=== PATIENT | female | born 1970 | race African-American/Black ===

== ENCOUNTER → 2017-01-10 | Outpatient (CLI) | payer MEDICARE, OTHER ==
[2017-01-10 12:42] LABS: Aty Lym Flag Slight; CH 27.3; CHCM 29.7; HDW 2.69; HGB 11.5 gm/dL (11.4-16.0); Hypochromasia Marked; MCH 27.8 pg (25.0-35.0); MCHC 30.1 g/dL (31.0-37.0); MCV 92.4 fL (80.0-100.0); Mean Platelet Volume 7.4; RBC 4.12 m/uL (3.80-5.40); RDW 15.5 % (11.5-15.5); WBC 3.6 k/uL (3.8-10.6); WBC (Perox) 3.64
[2017-01-10 12:58] LABS: ALT 29 U/L (9-52); AST 25 U/L (14-36); Alkaline Phosphatase 85 U/L (38-126); Anion Gap 10 mmol/L; Blood Urea Nitrogen 7 mg/dL (7-17); Calcium 9.1 mg/dL (8.4-10.2); Carbon Dioxide 25 mmol/L (22-30); Chloride 102 mmol/L (98-107); Non-African American GFR(MDRD) >60 (>60 ml/min/1.73 sqM); Potassium 4.5 mmol/L (3.5-5.1); Sodium 137 mmol/L (137-145)
[2017-01-10 13:15] LABS: Add Differential Manual Differential
[2017-01-10 13:18] LABS: Manual Review Performed; Nucleated Red Blood Cells 0 /100 WBC (0-0); Target Cells Present; Total Cells Counted 100
[2017-01-15 10:40] LABS: Mis test requested (Blood) Anti Xa
== END | disposition home or self-care (01) ==
LOC: LABWHC1 11:25
PROVIDERS: ATTEND Internal Medicine Hematology & Oncology
DX: Z51.81 Encounter for therapeutic drug level monitoring (principal); Z79.01 Long term (current) use of anticoagulants
CPT/HCPCS: 36415; 80051; 82310; 82565; 84075; 84450; 84460; 84520; 85025; 85520

== ENCOUNTER → 2017-04-10 | Outpatient (CLI) | payer MEDICARE, OTHER ==
--- NOTE | 2017-04-10 09:34 | MR ---
MRI CERVICAL SPINE: CLINICAL HISTORY: Cervical radiculopathy per order. Headache with neck pain for years causing pain or weakness into left arm and fingers per patient. TECHNIQUE: Multiplanar, multisequence imaging of the cervical spine is performed without IV contrast. COMPARISON: None. FINDINGS: Sagittal images of the cervical spine show the craniocervical junction to appear within nor mal limits. The cervical and upper thoracic spinal cord is normal in course, caliber, and signal. V ertebral alignment is anatomic. The vertebral body and intravertebral disk heights are normal. No la rge posterior disc herniations are seen on sagittal images. The bone marrow signal intensity is with in normal limits. No significant spurring is present. Axial images show the C2-C3, C3-C4, C4-C5 levels all to appear within normal limits. Axial images at C5-C6 level show small right paracentral disc protrusion on axial image 22 mildly eff acing anterior thecal sac, bilateral neural foramina are patent. Axial images at C6-C7 and C7-T1 levels are felt within normal limits. There are several T2 hyperintense lesions scattered throughout the thyroid gland bilaterally, Includi ng 9 mm lesion right thyroid lobe on axial image 18 and 8 mm lesion posteriorly inferiorly on axial i mage 4. IMPRESSION: Small disc herniation C5-C6 level mildly effaces anterior thecal sac otherwise unremarkab le study. No significant finding is seen to account for radiculopathy type symptoms. Thyroid nodules present, advise thyroid ultrasound follow-up to further evaluate and characterize.
== END | disposition home or self-care (01) ==
LOC: RADMRIMAIN 08:21
PROVIDERS: ATTEND Acupuncturist
DX: M50.122 Cervical disc disorder at C5-C6 level with radiculopathy (principal)
CPT/HCPCS: 72141

== ENCOUNTER 2017-04-26 00:47 | Inpatient (IN) | payer MEDICARE, OTHER ==
--- NOTE | 2017-04-26 01:37 | ED ---
Extremity Problem HPI - General Source: patient, RN notes reviewed Mode of arrival: wheelchair Limitations: no limitations <Tali Sanchez - Last Filed: 04/26/17 18:30> <Art Ramos - Last Filed: 04/28/17 08:58> - General Chief complaint: Extremity Problem,Nontraumatic Stated complaint: R leg pain Time Seen by Provider: 04/26/17 01:19 - History of Present Illness Initial comments: Patient is a 38-year-old female presents emergency room for evaluation of right leg swelling and tenderness. Patient states pain began about 5 days ago. Patient states on she followed-up with her primary care provider and an ultrasound was ordered. Patient states she has not received that ultrasound yet. 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 Patient states she takes Plavix and Lovenox daily. Patient states she has a history of left leg amputation due to complications from an infected wound on her great toe. Patient states that she does not want her right leg amputated therefore came here to be further evaluated. Patient states having pain radiates down from her hip to her ankle. Patient states she takes morphine and Dilaudid at home with no relief of symptoms. Patient denies injuring her right leg. Patient denies any fevers or chills. Patient did have a temperature of 100.0F on arrival. Patient denies chest pain or shortness of breath. Patient denies cough. Patient denies headache or dizziness. (Tali Sanchez) - Related Data Home Medications Medication Instructions Recorded Confirmed ALPRAZolam [Xanax] 2 mg PO BID 09/06/16 04/26/17 Alendronate Sodium [Fosamax] 10 mg PO Q7D 09/06/16 04/26/17 Clopidogrel Bisulfate [Plavix] 75 mg PO DAILY 09/06/16 04/26/17 Cyclobenzaprine [Flexeril] 10 mg PO TID 09/06/16 04/26/17 Enoxaparin [Lovenox] 80 mg SQ DAILY 09/06/16 04/26/17 HYDROmorphone HCL [Dilaudid] 8 mg PO Q8HR PRN 09/06/16 04/26/17 Morphine Sulfate [Rebeca] 100 mg PO BID 09/06/16 04/26/17 Oxybutynin Chloride [Ditropan] 5 mg PO TID 09/06/16 04/26/17 Sucralfate [Carafate] 1 gm PO TID 09/06/16 04/26/17 Albuterol Sulfate [Ventolin Hfa] 1 - 2 puff INHALATION RT-Q6H PRN 04/26/1704/26 Amitriptyline HCl [Elavil] 25 mg PO HS 04/26/17 04/26/17 Ciclopirox [Penlac] 1 applic TOPICAL HS 04/26/17 04/26/17 Dextroamphetamine/Amphetamine 30 mg PO BID 04/26/17 04/26/17 [Adderall] Famotidine [Pepcid] 20 mg PO DAILY 04/26/17 04/26/17 Allergies Allergy/AdvReac Type Severity Reaction Status Date / Time trazodone Allergy Chest Pain Verified 04/26/17 07:49 acetaminophen AdvReac Unknown Verified 04/26/17 07:49 Review of Systems ROS Other: All systems not noted in ROS Statement are negative. <Tali Sanchez - Last Filed: 04/26/17 18:30> ROS Other: All systems not noted in ROS Statement are negative. <Art Ramos - Last Filed: 04/28/17 08:58> ROS Statement: Those systems with pertinent positive or pertinent negative responses have been documented in the HPI. Past Medical History Past Medical History: Asthma, Deep Vein Thrombosis (DVT), Osteoarthritis (OA), Pulmonary Embolus (PE) Additional Past Medical History / Comment(s): sticky platelet, bronchitis, History of Any Multi-Drug Resistant Organisms: None Reported Past Surgical History: Cholecystectomy Additional Past Surgical History / Comment(s): BKA, Past Psychological History: Depression Smoking Status: Current some day smoker Past Alcohol Use History: Rare Past Drug Use History: None Reported <Tali Sanchez - Last Filed: 04/26/17 18:30> General Exam Limitations: no limitations General appearance: alert, in no apparent distress Head exam: Present: atraumatic, normocephalic, normal inspection Eye exam: Present: normal appearance ENT exam: Present: normal exam Neck exam: Present: normal inspection Respiratory exam: Present: normal lung sounds bilaterally. Absent: respiratory distress Cardiovascular Exam: Present: regular rate, normal rhythm, normal heart sounds Extremities exam: Present: other (left leg above the knee amputation) Right Lower Leg exam: Present: swelling Ankle exam: Present: swelling Foot/Toe exam: Present: full ROM, tenderness (anterior ankle), swelling Neurovascular tendon exam: Absent: pulse deficit (2+ dorsal pedal and posterior tibial pulses on Doppler), abnormal cap refill (Capillary refill less than 2 seconds) Back exam: Present: normal inspection Neurological exam: Present: alert, oriented X3, CN II-XII intact Psychiatric exam: Present: normal affect, normal mood Skin exam: Present: warm, dry, intact, normal color. Absent: rash <Tali Sanchez - Last Filed: 04/26/17 18:30> <Art Ramos - Last Filed: 04/28/17 08:58> - General Exam Comments Initial Comments: Sitting in exam room, no distress. (Tali Sanchze) Medical Decision Making - Lab Data Result diagrams: 04/26/17 02:18 04/26/17 02:18 - Radiology Data Radiology results: report reviewed, image reviewed <Tali Sanchez - Last Filed: 04/26/17 18:30> - Lab Data Result diagrams: 04/27/17 08:09 04/27/17 08:09 <Art Ramos - Last Filed: 04/28/17 08:58> - Medical Decision Making Patient is a 46-year-old female presents to the emergency room for evaluation of right leg pain and swelling. Venous Doppler ultrasound negative for DVT. Patient still complaining of pain. Case discussed Dr. Ramos. Dr. Stapleton is currently trying to get a hold of on-call vascular surgeon. Case passed on to Dr. Ramos at 4 AM. (Tali Sanchez) - Lab Data Lab Results 04/26/17 04/26/17 04/26/17 Range/Units 02:18 02:18 02:18 WBC 6.1 (3.8-10.6) k/uL RBC 3.67 L (3.80-5.40) m/uL Hgb 9.3 L (11.4-16.0) gm/dL Hct 30.8 L (34.0-46.0) % MCV 83.8 (80.0-100.0) fL MCH 25.3 (25.0-35.0) pg MCHC 30.1 L (31.0-37.0) g/dL RDW 14.8 (11.5-15.5) % Plt Count 384 (150-450) k/uL Neutrophils % 60 % Lymphocytes % 28 % Monocytes % 6 % Eosinophils % 3 % Basophils % 0 % Neutrophils # 3.7 (1.3-7.7) k/uL Lymphocytes # 1.7 (1.0-4.8) k/uL Monocytes # 0.4 (0-1.0) k/uL Eosinophils # 0.2 (0-0.7) k/uL Basophils # 0.0 (0-0.2) k/uL Hypochromasia Marked Sodium 141 (137-145) mmol/L Potassium 3.4 L (3.5-5.1) mmol/L Chloride 110 H (98-107) mmol/L Carbon Dioxide 18 L (22-30) mmol/L Anion Gap 13 mmol/L BUN 15 (7-17) mg/dL Creatinine 0.50 L (0.52-1.04) mg/dL Est GFR (MDRD) Af Amer >60 (>60 ml/min/1.73 sqM) Est GFR (MDRD) Non-Af >60 (>60 ml/min/1.73 sqM) Glucose 85 (74-99) mg/dL Plasma Lactic Acid Faisal 0.7 (0.7-2.0) mmol/L Calcium 9.1 (8.4-10.2) mg/dL Total Bilirubin 0.2 (0.2-1.3) mg/dL AST 25 (14-36) U/L ALT 31 (9-52) U/L Alkaline Phosphatase 87 (38-126) U/L Total Protein 6.9 (6.3-8.2) g/dL Albumin 3.7 (3.5-5.0) g/dL Urine Color Urine Appearance (Clear) Urine pH (5.0-8.0) Ur Specific [place] (1.001-1.035) Urine Protein (Negative) Urine Glucose (UA) (Negative) Urine Ketones (Negative) Urine Blood (Negative) Urine Nitrite (Negative) Urine Bilirubin (Negative) Urine Urobilinogen (<2.0) mg/dL Ur Leukocyte Esterase (Negative) 06/18/17 Range/Units 05:00 WBC (3.8-10.6) k/uL RBC (3.80-5.40) m/uL Hgb (11.4-16.0) gm/dL Hct (34.0-46.0) % MCV (80.0-100.0) fL MCH (25.0-35.0) pg MCHC (31.0-37.0) g/dL RDW (11.5-15.5) % Plt Count (150-450) k/uL Neutrophils % % Lymphocytes % % Monocytes % % Eosinophils % % Basophils % % Neutrophils # (1.3-7.7) k/uL Lymphocytes # (1.0-4.8) k/uL Monocytes # (0-1.0) k/uL Eosinophils # (0-0.7) k/uL Basophils # (0-0.2) k/uL Hypochromasia Sodium (137-145) mmol/L Potassium (3.5-5.1) mmol/L Chloride (98-107) mmol/L Carbon Dioxide (22-30) mmol/L Anion Gap mmol/L BUN (7-17) mg/dL Creatinine (0.52-1.04) mg/dL Est GFR (MDRD) Af Amer (>60 ml/min/1.73 sqM) Est GFR (MDRD) Non-Af (>60 ml/min/1.73 sqM) Glucose (74-99) mg/dL Plasma Lactic Acid Faisal (0.7-2.0) mmol/L Calcium (8.4-10.2) mg/dL Total Bilirubin (0.2-1.3) mg/dL AST (14-36) U/L ALT (9-52) U/L Alkaline Phosphatase (38-126) U/L Total Protein (6.3-8.2) g/dL Albumin (3.5-5.0) g/dL Urine Color Yellow Urine Appearance Clear (Clear) Urine pH 6.0 (5.0-8.0) Ur Specific [place] 1.017 (1.001-1.035) Urine Protein Negative (Negative) Urine Glucose (UA) Negative (Negative) Urine Ketones Negative (Negative) Urine Blood Negative (Negative) Urine Nitrite Negative (Negative) Urine Bilirubin Negative (Negative) Urine Urobilinogen <2.0 (<2.0) mg/dL Ur Leukocyte Esterase Negative (Negative) 04/26/17 03:48 Normal sinus rhythm, ventricular rate 86 bpm, VT interval 166 ms, QRS duration 84 ms, QT/QTC 392/469 ms (Tali Sanchez) Disposition <Tali Sanchez - Last Filed: 04/26/17 18:30> <Art Ramos - Last Filed: 04/28/17 08:58> Clinical Impression: Arterial insufficiency of lower extremity, Leg pain Disposition: ADMITTED IP TO THIS HOSP Condition: Poor
[2017-04-26] MEDS: HYDROmorphone 1 MG/ML 1 ML SYRINGE IVP STA ×2 (02:12→04:04)
[2017-04-26] MEDS: SODIUM CHLORIDE 0.9% 500 ML IV SCH ×2 (02:12→03:14)
[2017-04-26 02:37] LABS: Basophils % (A) 0 %; CH 24.8; CHCM 29.7; Eosinophils # (A) 0.2 k/uL (0-0.7); Eosinophils % (A) 3 %; HCT 30.8 % (34.0-46.0); HDW 3.35; HGB 9.3 gm/dL (11.4-16.0); Hypochromasia Marked; Luc # (Auto) 0.15; Luc % (Auto) 2; Lymphocytes # (A) 1.7 k/uL (1.0-4.8); Lymphocytes % (A) 28 %; MCH 25.3 pg (25.0-35.0); MCHC 30.1 g/dL (31.0-37.0); MCV 83.8 fL (80.0-100.0); Mean Platelet Volume 7.8; Monocytes # (A) 0.4 k/uL (0-1.0); Monocytes % (A) 6 %; Neutrophils # (A) 3.7 k/uL (1.3-7.7); Neutrophils % (A) 60 %; RBC 3.67 m/uL (3.80-5.40); RDW 14.8 % (11.5-15.5); WBC 6.1 k/uL (3.8-10.6); WBC (Perox) 6.66
[2017-04-26 02:51] LABS: ALT 31 U/L (9-52); AST 25 U/L (14-36); Alkaline Phosphatase 87 U/L (38-126); Anion Gap 13 mmol/L; Blood Urea Nitrogen 15 mg/dL (7-17); Calcium 9.1 mg/dL (8.4-10.2); Carbon Dioxide 18 mmol/L (22-30); Chloride 110 mmol/L (98-107); Glucose 85 mg/dL (74-99); Non-African American GFR(MDRD) >60 (>60 ml/min/1.73 sqM); Potassium 3.4 mmol/L (3.5-5.1); Sodium 141 mmol/L (137-145); Total Bilirubin 0.2 mg/dL (0.2-1.3); Total Protein 6.9 g/dL (6.3-8.2)
--- NOTE | 2017-04-26 03:23 | US ---
INDICATION: Right lower extremity pain TECHNIQUE: The lower extremity deep venous system is examined utilizing real time linear array sonography with graded compression, doppler sonography and color-flow sonography. COMPARISON: Bilateral lower extremity venous Doppler ultrasound, 06/19/16. FINDINGS: Normal compressibility is demonstrated from the right common femoral vein to the popliteal vein. There is normal response to augmentation. Normal color flow signal and spectral waveforms are demonstrated. Images of the left common femoral vein are normal. IMPRESSION: No evidence of deep venous thrombosis in the right lower extremity.
[2017-04-26] MEDS ORDERED: HYDROmorphone 1 MG/ML 1 ML SYRINGE IVP STA (04:14)
[2017-04-26] MEDS ORDERED: NALOXONE 0.4 MG/ML 1 ML VIAL IV PRN (05:14)
[2017-04-26] MEDS ORDERED: ACETAMINOPHEN TAB 325 MG TAB PO PRN (05:14)
[2017-04-26] MEDS ORDERED: ENOXAPARIN 40 MG/0.4 ML SYRINGE SQ SCH (05:15)
[2017-04-26 05:16] LABS: Appearance,Urine Clear (Clear); Bilirubin,Urine Negative (Negative); Glucose,Urine (UA) Negative (Negative); Ketones,Urine Negative (Negative); Leukocyte Esterase,Urine Negative (Negative); Nitrite,Urine Negative (Negative); Protein,Urine Negative (Negative); Specific Gravity,Urine 1.017 (1.001-1.035); UA Billing (MACRO vs. MICRO) CHEM; Urobilinogen,Urine <2.0 mg/dL (<2.0)
[2017-04-26] MEDS: SODIUM CHLORIDE 0.9% 1,000 ML IV SCH (06:29)
[2017-04-26] MEDS: ENOXAPARIN 80 MG/0.8 ML SYRINGE SQ SCH ×2 (06:29→17:51)
[2017-04-26 06:41] VITALS: BMI 26.7
[2017-04-26] MEDS: MORPHINE SULFATE 4 MG/ML SYRINGE IV PRN ×3 (06:57→18:03)
[2017-04-26 09:18] LABS: Partial Thromboplastin Time 24.9 sec (22.0-30.0); Prothrombin Time 10.3 sec (9.0-12.0)
[2017-04-26] MEDS ORDERED: RX INFO: IV CONTRAST WAS GIVEN 1 EACH MISC MISCELLANE PRN (09:28)
[2017-04-26] MEDS: MORPHINE SULFATE ER 100 MG TABLET PO SCH ×2 (09:33→21:39)
[2017-04-26] MEDS: ALPRAZolam 0.5 MG TAB PO SCH ×2 (09:34→21:39)
[2017-04-26] MEDS: HYDROmorphone 2 MG TAB PO PRN ×2 (09:34→20:10)
[2017-04-26] MEDS: predniSONE 20 MG TAB PO SCH (09:39)
[2017-04-26] MEDS: OXYBUTYNIN CHLORIDE 5 MG TAB PO SCH ×3 (09:39→21:42)
[2017-04-26] MEDS: SUCRALFATE 1 GM TAB PO SCH ×4 (09:40→21:41)
[2017-04-26] MEDS: CYCLOBENZAPRINE 10 MG TAB PO SCH ×3 (09:40→22:00)
[2017-04-26] MEDS ORDERED: ENOXAPARIN 80 MG/0.8 ML SYRINGE SQ SCH (10:15)
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
--- NOTE | 2017-04-26 12:17 | CT ---
EXAMINATION TYPE: CT angio lower extremity BILAT DATE OF EXAM: 04/26/2017 11:53 AM COMPARISON: NONE HISTORY: Rt leg swelling, pain. history of Lt below knee amputation CT DLP: 698.2 mGycm Automated exposure control for dose reduction was used. TECHNIQUE: Performed with IV Contrast, patient injected with 100 mL of Omnipaque 350. . FINDINGS: There is a [id number] amputation on the left. Aorta as visualized is of normal caliber with mild atherosclerotic changes. Imaging originates below the level of the renal arteries. Common iliac arteries demonstrate mild atherosclerotic plaque bilaterally. External iliac artery and internal iliac area. Patent on the right. And patent on the left. There is a bypass graft extending f rom the right iliac artery distally which does not enhance and is suspected to be occluded. There is no [place] enhancement of the common femoral artery or superficial femoral artery on the right. Deep f emoral artery enhances. There does appear to be distal reconstitution of the [place] superficial femor al artery at the level of the mid thigh. Popliteal artery appears patent. Proximal trifurcation vesse ls appear patent and are seen the level of the ankle. On the left there is a bypass graft which appears to be occluded. A femoral-femoral bypass graft also does not enhance. There is some enhancement of the [place] deep femoral artery. No enhancement of the superficial femoral artery or common femoral artery on the left. This is seen as well as a nonenhanc ing bypass graft to the level of the amputation. On the right there appears to be increased soft tissue thickening near the insertion and anastomosis of the femoral to femoral graft. This is nonspecific could be chronic related to scar. Hematoma or ph legmon is not excluded. Correlate clinically. Hypertrophic and degenerative change of the spine. Shotty adenopathy in the axilla. Surgical lips are seen in overlying the anterior abdominal wall. Small amount of free fluid in the pelvis. Thickening or cysts in the region of the endometrium of the uterus should be correlated with ultrasound. Arthropathy hips with postsurgical change involving the left femur. Subcutaneous calcifications are noted which are nonspecific. IMPRESSION: 1. There are multiple bypass grafts bilaterally none of which enhance and therefore suspected to be o ccluded. 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 Chronicity of occlusion indeterminate. If there is concern for acute occlusion then Correlate wi th dedicated angiogram. 2. Soft tissue thickening at the right common femoral region near the anastomosis of the femoral to f emoral bypass graft could be related to scar. Other etiologies including infectious etiology or hemat servando not excluded. Correlate clinically. 3. Apparent occlusion of a bypass graft involving the left lower extremity which extends to the level of the amputation. 4. See above regarding the suspected uterus.
[2017-04-26] MEDS ORDERED: POTASSIUM CHLORIDE ER 20 MEQ TAB.ER PO STA (13:23)
[2017-04-26] MEDS: CLOPIDOGREL 75 MG TAB PO SCH (14:06)
[2017-04-26] MEDS: MIRTAZAPINE 15 MG TAB PO SCH (21:40)
[2017-04-26] MEDS: AMITRIPTYLINE HCL 25 MG TAB PO SCH (21:41)
[2017-04-27] MEDS: MORPHINE SULFATE 4 MG/ML SYRINGE IV PRN ×4 (00:05→20:27)
[2017-04-27] MEDS: SODIUM CHLORIDE 0.9% 1,000 ML IV SCH (06:29)
[2017-04-27] MEDS: ENOXAPARIN 80 MG/0.8 ML SYRINGE SQ SCH ×2 (06:29→17:37)
--- NOTE | 2017-04-27 07:02 | HP ---
DATE OF ADMISSION: 04/26/2017 PRESENTING COMPLAINT: Right leg pain. HISTORY OF PRESENTING COMPLAINT: This is a 46-year-old patient who follows with family doctor in the [place] area including family doctor, Dr. Resendez. 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 Patient is a smoker. Patient has also got known peripheral arterial disease. Patient presented with some right pain and swelling for the last 4 days. Admitted for the same with decreased pulses. Patient continues to smoke. REVIEW OF SYSTEMS: CONSTITUTIONAL: None. HEENT: None. RESPIRATORY: Baseline short of breath. CARDIOVASCULAR: None. GASTROINTESTINAL: None. GENITOURINARY: None. MUSCULOSKELETAL: Aches and pains in different joints. DERMATOLOGICAL: None. HEMATOLOGIC: None. LYMPHATICS: None. PSYCHIATRY: Depression. NEUROLOGICAL: None. 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 PAST SURGICAL HISTORY: Cholecystectomy and left below-knee amputation 5 years ago from toe wound. SOCIAL HISTORY: The patient just moved to [place]. Smokes close to a pack a day. Lives by herself. FAMILY HISTORY: Reviewed; noncontributory to presentation. HOME MEDICATIONS: 1. Carafate 1 gram p.o. t.i.d. 2. Ditropan 5 mg t.i.d. 3. Rebeca 100 mg p.o. b.i.d. 4. Dilaudid 8 mg q.8 p.r.n. 5. Pepcid 20 mg p.o. daily. 6. Lovenox 80 mg subcu daily. 7. Adderall 30 mg p.o. b.i.d. 8. Flexeril 10 mg p.o. t.i.d. 9. Plavix 75 mg p.o. daily. 10. Elavil 25 mg q.h.s. 11. Fosamax 10 mg p.o. q.7 days. 12. Ventolin HFA 1 to 2 puffs q.6 p.r.n. 13. Xanax 2 mg p.o. b.i.d. Allergy to TRAZODONE and ACETAMINOPHEN. On examination, temperature 100, pulse 103, respirations 18, blood pressure 115/57, pulse ox 99% on room air. GENERAL APPEARANCE: Average built, sitting up, not in distress. EYES: Pupils equal. Conjunctivae are normal. HENT: Oral cavity normal. NECK: JVD not raised. Mass not palpable. RESPIRATORY: Effort normal. LUNGS: Diminished breath sounds. CARDIOVASCULAR: First and second sounds normal. Some right lower extremity edema. ABDOMEN: Soft, nontender. Liver and spleen not palpable. LYMPHATIC: No lymph node palpable in the neck or axillae. PSYCHIATRY: Alert and oriented x3. Mood and affect normal. NEUROLOGICAL: Pupils equal. Cranial nerves intact. Decreased pulse distally. INVESTIGATIONS: White count 6.1, hemoglobin 9.3. Potassium 3.4. BUN 15, creatinine 0.50. UA negative. Venous Doppler no evidence of DVT. Lower extremity CT angio shows bypass graft on the right side. Also, there is a bypass graft which appears to be occluded. ASSESSMENT: 1. Acute on chronic peripheral arterial disease with some occluded grafts especially on the right side and the patient is an active smoker. 2. Chronic obstructive pulmonary disease in a current smoker. 3. Primary osteoarthritis of multiple joints. 4. Depression, not otherwise specified. 5. 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 6. Chronic urinary stress incontinence. PLAN: Patient's home medications are resumed. Patient will be put on a therapeutic dose of Lovenox. Patient counseled against smoking extensively, put on nicotine patch. Dr. Youssef from vascular surgery is consulted. Care was discussed with the patient and family at the bedside.
[2017-04-27] MEDS: CLOPIDOGREL 75 MG TAB PO SCH (07:45)
[2017-04-27] MEDS: ALPRAZolam 0.5 MG TAB PO SCH ×2 (07:45→21:10)
[2017-04-27] MEDS: CYCLOBENZAPRINE 10 MG TAB PO SCH ×3 (07:45→21:12)
[2017-04-27] MEDS: SUCRALFATE 1 GM TAB PO SCH ×4 (07:45→21:11)
[2017-04-27] MEDS: MORPHINE SULFATE ER 100 MG TABLET PO SCH ×2 (07:45→21:11)
[2017-04-27] MEDS: predniSONE 20 MG TAB PO SCH (07:45)
[2017-04-27] MEDS: OXYBUTYNIN CHLORIDE 5 MG TAB PO SCH ×3 (07:46→21:12)
[2017-04-27] MEDS: NICOTINE 14MG/24HR PATCH TRANSDERM SCH (07:46)
--- NOTE | 2017-04-27 08:07 | P.PN ---
Progress Note - Text had significant pain in left hip and back last night right leg is about the same AF VSS right leg; mono to biphasic signal in right dorsalis pedis and posterior tibial arteries; foot remains viable, FROM, edema in right leg is slightly diminished CTA reviewed by me; demonstrates occlusion of both external iliac arteries; there is a right external iliac to right femoral bypass graft and right to left femoral to femoral cross over bypass graft that is thrombosed; there is a LEFT superficial femoral artery stent that is thrombosed Arthropathy is noted in both hips and LS spine AGATA from 04/26/2017 demonstrates moderate right leg arterial occlusive disease with an AGATA of 0.67; waveforms appear biphasic. impression/plan 1. moderate right leg arterial occlusive disease with thrombosed extra- anatomic bypass; chronicity of thrombosis cannot be determined but suspected to be at least subacute attempt made to obtain records yesterday from [facility] and [facility] unsuccessful attempt to be made to obtain records from patient's current vascular surgeon Dr. Chinchilla continue current medical regimen for now following
[2017-04-27 08:39] LABS: Basophils % (A) 0 %; CH 25.2; Eosinophils # (A) 0.2 k/uL (0-0.7); Eosinophils % (A) 3 %; HCT 28.7 % (34.0-46.0); HDW 3.67; HGB 9.1 gm/dL (11.4-16.0); Hypochromasia Marked; Luc # (Auto) 0.18; Luc % (Auto) 3; Lymphocytes # (A) 1.8 k/uL (1.0-4.8); Lymphocytes % (A) 30 %; MCH 25.8 pg (25.0-35.0); MCHC 31.7 g/dL (31.0-37.0); MCV 81.5 fL (80.0-100.0); Mean Platelet Volume 6.7; Monocytes # (A) 0.4 k/uL (0-1.0); Monocytes % (A) 6 %; Neutrophils # (A) 3.5 k/uL (1.3-7.7); Neutrophils % (A) 58 %; Poikilocytosis Slight; RBC 3.53 m/uL (3.80-5.40); RDW 14.7 % (11.5-15.5); WBC 6.1 k/uL (3.8-10.6); WBC (Perox) 6.19
[2017-04-27 09:42] LABS: Blood Urea Nitrogen 9 mg/dL (7-17); Chloride 109 mmol/L (98-107); Glucose 79 mg/dL (74-99); Non-African American GFR(MDRD) >60 (>60 ml/min/1.73 sqM); Potassium 3.2 mmol/L (3.5-5.1); Sodium 141 mmol/L (137-145)
[2017-04-27 10:09] LABS: Anion Gap 13 mmol/L; Carbon Dioxide 19 mmol/L (22-30)
[2017-04-27] MEDS: CALCIUM CARBONATE 500 MG CHEWABLE PO PRN (20:27)
[2017-04-27] MEDS: MIRTAZAPINE 15 MG TAB PO SCH (21:11)
[2017-04-27] MEDS: AMITRIPTYLINE HCL 25 MG TAB PO SCH (21:11)
--- NOTE | 2017-04-27 22:18 | P.PN ---
Progress Note - Text Chart reviewed from [facility] Doppler studies from 2012 demonstrate Lower extremity arterial ultrasound demonstrates moderate right leg arterial occlusive disease with an AGATA of 0.52. There is evidence of right iliac and superficial femoral artery occlusive disease on duplex imaging. Last operative intervention on bypass grafts was at [facility] in 2010. Patient admitted to [facility] in April 2016 with pain in right leg and swelling in April 2016. Conclusion: 1. 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 nicotine dependence 3. chronic pain syndrome 4. hypercoagulable state Plan; 1. Continue current medical regimen; would continue enoxaperin 75mg BID 2. f/u with Dr. Caden Chinchilla D.O., her current vascular surgeon as outpatient for continuity of care 3. if patient wishes to have tertiary care reassessment strongly advise her to f/u at [facility] for further evaluation no acute vascular surgery at this time
--- NOTE | 2017-04-27 22:46 | P.PN ---
Progress Note - Text DATE OF SERVICE: 04/27/2017 PRESENTING COMPLAINT: Right leg pain INTERVAL HISTORY: This patient was admitted with right leg pain secondary to acute on chronic peripheral arterial disease. Vascular surgery saw the patient today and there is a chronic occlusion of the iliofemoral and fem-fem bypass grafts since 2012. Additional recommendations for patient to follow-up with the current vascular surgeon Dr. Caden Chinchilla, or for further reassessment to go to a tertiary care center. Today patient is observed having odd behaviors. Closing the curtain closing the door, has left for many multiple times, even after being told not to leave, behavior suspicious for maintaining her smoking habit. Patient is ambulatory in the hallways and in the room, tolerating her diet, moved her bowels. REVIEW OF SYSTEMS: Done for constitutional ,cardiovascular, GI, pulmonary with relevant findings as above. CURRENT MEDICATIONS Xanax, Plavix, Flexeril, Lovenox, hydromorphone, Remeron, morphine, MS Contin, nicotine patch. PHYSICAL EXAM VITAL SIGNS: Temperature 97.3, pulse 94, respiratory rate 14, blood pressure 102/55, oxygen saturation 100% on room air. GENERAL APPEARANCE: Sitting on the bed bed, not in distress. EYES: Pupils equal. Conjunctiva normal. NECK: JVD not raised. Mass not palpable. RESPIRATORY: Respiratory effort normal. Lungs clear to auscultation. CARDIOVASCULAR: First and second sounds normal. No edema. ABDOMEN: Soft. Liver and spleen not palpable. No tenderness. No mass palpable. PSYCHIATRY: Alert and oriented x3. Mood and affect normal. MUSCULOSKELETAL: Right foot pain, tender to palpation, patient is an obvious limp. INVESTIGATIONS: Hemoglobin 9.1, sodium 141, potassium 3.2, BUN 9 creatinine 0.47. ASSESSMENT: Acute on chronic peripheral arterial disease with some occluded grafts especially on the right side. Current smoker Chronic obstructive pulmonary disease and a current smoker. Primary osteoarthritis of multiple joints. Depression not otherwise specified. Sticky platelet syndrome, for which the patient is on Lovenox and Plavix. Chronic urinary stress incontinence. PLAN: Given that they'll be no surgical intervention at this time by our vascular surgery department, discharge planning will ensue or perhaps transferring the patient to a tertiary care center. We'll continue current medication and treatment plan. Will follow closely NETWORK SYSTEMS CONSULTANT statement: Patient was seen and examined by nurse practitioner Savannah Berg and all elements of the case discussed with attending Dr. Camarillo
[2017-04-28 07:07] VITALS: BP 101/60; PULSE 89; RESP 17; TEMP 98.2
[2017-04-28] MEDS: HYDROmorphone 2 MG TAB PO PRN (08:04)
[2017-04-28] MEDS: ALPRAZolam 0.5 MG TAB PO SCH (08:05)
[2017-04-28] MEDS: CYCLOBENZAPRINE 10 MG TAB PO SCH (08:05)
[2017-04-28] MEDS: predniSONE 20 MG TAB PO SCH (08:05)
[2017-04-28] MEDS: OXYBUTYNIN CHLORIDE 5 MG TAB PO SCH (08:05)
[2017-04-28] MEDS: SUCRALFATE 1 GM TAB PO SCH ×2 (08:05→13:42)
[2017-04-28] MEDS: CLOPIDOGREL 75 MG TAB PO SCH (08:06)
[2017-04-28] MEDS: SODIUM CHLORIDE 0.9% 1,000 ML IV SCH (08:06)
[2017-04-28] MEDS: ENOXAPARIN 80 MG/0.8 ML SYRINGE SQ SCH (08:06)
[2017-04-28] MEDS: NICOTINE 14MG/24HR PATCH TRANSDERM SCH (08:12)
[2017-04-28 08:59] LABS: Basophils % (A) 0 %; CH 25.2; CHCM 30.7; Eosinophils # (A) 0.1 k/uL (0-0.7); Eosinophils % (A) 2 %; HCT 30.2 % (34.0-46.0); HDW 3.58; HGB 9.3 gm/dL (11.4-16.0); Hypochromasia Marked; Luc # (Auto) 0.15; Luc % (Auto) 3; Lymphocytes # (A) 1.9 k/uL (1.0-4.8); Lymphocytes % (A) 35 %; MCH 25.4 pg (25.0-35.0); MCHC 30.7 g/dL (31.0-37.0); MCV 82.6 fL (80.0-100.0); Mean Platelet Volume 7.6; Monocytes # (A) 0.4 k/uL (0-1.0); Monocytes % (A) 7 %; Neutrophils % (A) 54 %; Poikilocytosis Slight; RBC 3.66 m/uL (3.80-5.40); RDW 14.8 % (11.5-15.5); WBC 5.6 k/uL (3.8-10.6); WBC (Perox) 5.95
[2017-04-28 09:18] LABS: Anion Gap 10 mmol/L; Blood Urea Nitrogen 10 mg/dL (7-17); Calcium 8.6 mg/dL (8.4-10.2); Carbon Dioxide 23 mmol/L (22-30); Chloride 108 mmol/L (98-107); Glucose 77 mg/dL (74-99); Non-African American GFR(MDRD) >60 (>60 ml/min/1.73 sqM); Potassium 3.4 mmol/L (3.5-5.1); Sodium 141 mmol/L (137-145)
[2017-04-28] MEDS: MORPHINE SULFATE ER 100 MG TABLET PO SCH (09:30)
[2017-04-28] MEDS: CHERRY FLAVOR 60 ML BOTTLE PO SCH ×2 (09:33→13:42)
[2017-04-28] MEDS: CALCIUM CARBONATE 500 MG CHEWABLE PO PRN (10:39)
--- NOTE | 2017-04-28 11:57 | PN ---
DATE OF SERVICE: 04/27/2017 ATTENDING NOTE: This patient was seen and examined by me on 04/27/2017. I reviewed the note of my nurse practitioner, Ms. Berg. Discussed, reviewed additional findings as below. This is a patient who has vascular problems with right leg pain. DVT was ruled out. Patient did have a lower extremity CTA shows multiple ( ) occlusions. Per Dr. Youssef no acute intervention to be carried out at this point. She is looking into a tertiary center for further intervention, may be down at [place] where patient has had previous care. The patient is up and about in the hallway, tolerating a diet. On examination, blood pressure 102/55, pulse 100% on room. LUNGS: Decreased breath sounds. Some tenderness in the right lower extremity. ASSESSMENT: 1. Acute on chronic peripheral artery disease ( ) occluded grafts especially in the right lower extremity. 2. Chronic obstructive pulmonary disease in a current smoker. 3. Sticky platelet syndrome. PLAN: Await further final determination by Dr. Youssef. Care was discussed with the patient. I did reemphasize not to smoke.
--- NOTE | 2017-04-29 11:26 | P.ARTDOP ---
Arterial Doppler LOWER EXTREMITY ARTERIAL DOPPLER: DATE OF SERVICE: 04/26/2017 Reason for study: Right leg pain. Doppler waveforms: Multiphasic at the left femoral and throughout on the right.. Pulse volume recording: Mild blunting throughout on the right. Pressure gradients: Moderate gradient above the ankle.. Ankle-brachial indices: 0.73. Impression: [id number] right fem-pop disease.
--- NOTE | 2017-05-01 12:24 | DS ---
DATE OF ADMISSION: 04/26/2017 DATE OF DISCHARGE: 04/28/2017 FINAL DIAGNOSES: 1. Acute on chronic peripheral arterial disease including some occluded graft on the on the right leg. 2. Chronic nicotine dependence. Patient is an active cigarette smoker. CONSULTATION: Dr. Youssef from vascular surgery. HOSPITAL COURSE: This patient has got an extensive vascular history. Patient presented with right leg pain and swelling. DVT was ruled out. The patient did undergo venous Doppler, negative for DVT. Lower extremity CTA and arterial study by Dr. Rojas. Dr. Youssef from vascular did discuss with the patient and said patient needs to be followed up as an outpatient with her vascular surgeon in [place] because of the history is rather complicated. This was conveyed to the patient. I did talk extensively to the patient and family about smoking cessation. Patient is up and about in the hallway. ON EXAM: LUNGS: Decreased breath sounds. CARDIOVASCULAR: First and second sounds normal. Hemoglobin is 9.3. BUN 10, creatinine 0.49. DISCHARGE MEDICATIONS: 1. Xanax 2 mg p.o. b.i.d. 2. Fosamax 10 mg p.o. every 7 days. 3. Plavix 75 mg a day. 4. Flexeril 10 mg t.i.d. 5. Lovenox 80 mg subcu daily. 6. Dilaudid 8 mg p.o. q.8 p.r.n. 7. Rebeca 100 mg p.o. b.i.d. 8. Ditropan 5 mg p.o. t.i.d. 9. Carafate 1 gram p.o. t.i.d. 10. Ventolin HFA 1 to 2 puffs q.6 p.r.n. 11. Elavil 25 mg p.o. q.h.s. 12. Penlac one application topically q.h.s. 13. Inderal 30 mg p.o. b.i.d. 14. Pepcid 20 mg p.o. daily. 15. Nicotine patch daily. Patient is to follow with her vascular surgeon in [place] as soon as possible. Follow up with Dr. Resendez, family doctor, on 05/07/17.
== END 2017-04-28 14:47 | disposition home or self-care (01) | DRG 315 ==
LOC: EC 00:47 → 4MS4W 05:22
PROVIDERS: ADMIT Hospitalist; ATTEND Hospitalist
DX: T82.868A Thrombosis due to vascular prosthetic devices, implants and grafts, initial encounter (principal); D68.59 Other primary thrombophilia; I73.9 Peripheral vascular disease, unspecified; F32.9 Major depressive disorder, single episode, unspecified; G89.4 Chronic pain syndrome; J44.9 Chronic obstructive pulmonary disease, unspecified; M15.9 Polyosteoarthritis, unspecified; M54.17 Radiculopathy, lumbosacral region; N39.3 Stress incontinence (female) (male); J45.909 Unspecified asthma, uncomplicated; F17.200 Nicotine dependence, unspecified, uncomplicated; M51.36 Other intervertebral disc degeneration, lumbar region; I77.9 Disorder of arteries and arterioles, unspecified; Z79.02 Long term (current) use of antithrombotics/antiplatelets; Z79.01 Long term (current) use of anticoagulants; Z79.899 Other long term (current) drug therapy; Z88.6 Allergy status to analgesic agent; Z88.8 Allergy status to other drugs, medicaments and biological substances; Z89.512 Acquired absence of left leg below knee; Z98.84 Bariatric surgery status; Z82.49 Family history of ischemic heart disease and other diseases of the circulatory system; Y82.8 Other medical devices associated with adverse incidents
CPT/HCPCS: 36415; 80048; 80053; 81003; 83605; 85025; 85610; 85730; 87040; 87086; 93005; 93923; 96361; 96374; 96376; 99285

== ENCOUNTER 2017-07-09 21:15 | Inpatient (IN) | payer MEDICARE, OTHER ==
--- NOTE | 2017-07-09 21:26 | ED ---
General Adult HPI - General Source: patient, RN notes reviewed, old records reviewed Mode of arrival: wheelchair Limitations: no limitations <Antonio Mcguire - Last Filed: 07/09/17 21:30> <Antonio Ruiz - Last Filed: 07/09/17 23:32> - General Chief complaint: Headache Stated complaint: Headache Time Seen by Provider: 07/09/17 21:18 - History of Present Illness Initial comments: This is a 47-year-old female here for evaluation of headache patient has history of chronic pain and chronic narcotic use. Patient has been having a headache for 2 weeks that she does get headaches but this headache is just not gone away. Been persistent for the last 2 weeks mild nausea no vomiting but patient does state bright lights. She denies neurological deficit. Denies trauma. Patient states the pain sutures on the back of her head down into her neck and back up to the back of her head. (Antonio Mcguire) - Related Data Home Medications Medication Instructions Recorded Confirmed ALPRAZolam [Xanax] 2 mg PO BID 09/06/16 07/09/17 Alendronate Sodium [Fosamax] 10 mg PO Q7D 09/06/16 07/09/17 Clopidogrel Bisulfate [Plavix] 75 mg PO DAILY 09/06/16 07/09/17 Cyclobenzaprine [Flexeril] 10 mg PO TID 09/06/16 07/09/17 Enoxaparin [Lovenox] 80 mg SQ DAILY 09/06/16 07/09/17 HYDROmorphone HCL [Dilaudid] 8 mg PO Q8HR PRN 09/06/16 07/09/17 Morphine Sulfate [Rebeca] 100 mg PO BID 09/06/16 07/09/17 Oxybutynin Chloride [Ditropan] 5 mg PO TID 09/06/16 07/09/17 Sucralfate [Carafate] 1 gm PO TID 09/06/16 07/09/17 Albuterol Sulfate [Ventolin HFA] 1 - 2 puff INHALATION RT-Q6H PRN 04/26/1707/09 Amitriptyline HCl [Elavil] 25 mg PO HS 04/26/17 07/09/17 Ciclopirox [Penlac] 1 applic TOPICAL HS 04/26/17 07/09/17 Dextroamphetamine/Amphetamine 30 mg PO BID 04/26/17 07/09/17 [Adderall] Famotidine [Pepcid] 20 mg PO DAILY 04/26/17 07/09/17 Previous Rx's Medication Instructions Recorded Nicotine 14Mg/24Hr Patch [Habitrol] 1 patch TRANSDERM DAILY #14 patch 04/28/17 Allergies Allergy/AdvReac Type Severity Reaction Status Date / Time trazodone Allergy Chest Pain Verified 07/09/17 21:22 acetaminophen AdvReac Unknown Verified 07/09/17 21:22 Review of Systems ROS Other: All systems not noted in ROS Statement are negative. <Antonio Mcguire - Last Filed: 07/09/17 21:30> ROS Other: All systems not noted in ROS Statement are negative. <Antonio Ruiz - Last Filed: 07/09/17 23:32> ROS Statement: Those systems with pertinent positive or pertinent negative responses have been documented in the HPI. Past Medical History Past Medical History: Asthma, Deep Vein Thrombosis (DVT), Osteoarthritis (OA), Pulmonary Embolus (PE) Additional Past Medical History / Comment(s): sticky platelet, bronchitis, History of Any Multi-Drug Resistant Organisms: None Reported Past Surgical History: Cholecystectomy Additional Past Surgical History / Comment(s): BKA, Past Psychological History: Anxiety, Depression Smoking Status: Current some day smoker Past Alcohol Use History: None Reported Past Drug Use History: None Reported <Antonio Mcguire - Last Filed: 07/09/17 21:30> General Exam Limitations: no limitations General appearance: alert, in no apparent distress Head exam: Present: atraumatic, normocephalic, normal inspection Eye exam: Present: normal appearance, PERRL, EOMI. Absent: scleral icterus, conjunctival injection, periorbital swelling ENT exam: Present: normal exam, mucous membranes moist Neck exam: Present: normal inspection. Absent: tenderness, meningismus, lymphadenopathy Respiratory exam: Present: normal lung sounds bilaterally. Absent: respiratory distress, wheezes, rales, rhonchi, stridor Cardiovascular Exam: Present: regular rate, normal rhythm, normal heart sounds. Absent: systolic murmur, diastolic murmur, rubs, gallop, clicks GI/Abdominal exam: Present: soft, normal bowel sounds. Absent: distended, tenderness, guarding, rebound, rigid Extremities exam: Present: normal inspection, full ROM, normal capillary refill. Absent: tenderness, pedal edema, joint swelling, calf tenderness Back exam: Present: normal inspection Neurological exam: Present: alert, oriented X3, CN II-XII intact Psychiatric exam: Present: normal affect, normal mood Skin exam: Present: warm, dry, intact, normal color. Absent: rash <Antonio Mcguire - Last Filed: 07/09/17 21:30> Medical Decision Making - Radiology Data Radiology results: report reviewed (CT brain is pending), image reviewed <Antonio Mcguire - Last Filed: 07/09/17 21:30> <Antonio Ruiz - Last Filed: 07/09/17 23:32> - Medical Decision Making Patient continues to have a headache. I saw the CT showed nothing acute. Patient states she has had clots in the past even being on Lovenox and Plavix. ( Antonio Ruiz) Disposition <Antonio Mcguire - Last Filed: 07/09/17 21:30> Time of Disposition: 23:32 <Antonio Ruiz - Last Filed: 07/09/17 23:32> Clinical Impression: Migraine, Tension headache, Headache, History of blood clots Disposition: ADMITTED IP TO THIS HOSP
[2017-07-09] MEDS ORDERED: KETOROLAC 30 MG/ML 1 ML VIAL IVP STA (21:28)
[2017-07-09] MEDS ORDERED: SODIUM CHLORIDE 0.9% 1,000 ML IV STA (21:28)
[2017-07-09] MEDS ORDERED: diphenhydrAMINE 50 MG/ML 1 ML VIAL IVP STA (21:28)
[2017-07-09] MEDS ORDERED: HYDROmorphone 1 MG/ML 1 ML SYRINGE IVP STA (21:28)
[2017-07-09] MEDS ORDERED: METOCLOPRAMIDE 5 MG/ML 2 ML VIAL IVP STA (21:28)
[2017-07-09] MEDS ORDERED: DIAZEPAM 5 MG/ML 2 ML SYRINGE IVP STA (21:29)
[2017-07-09] MEDS ORDERED: HYDROmorphone 2 MG/ML 1 ML SYRINGE IVP STA (21:33)
[2017-07-09] MEDS ORDERED: methylPREDNISolone SOD SUCCI 250 MG in SODIUM CHLORIDE 0.9% 100 ML IVPB STA (21:33)
--- NOTE | 2017-07-09 23:00 | CT ---
EXAM: CT Head Without Intravenous Contrast CLINICAL HISTORY: Reason: Headache TECHNIQUE: Axial computed tomography images of the head/brain without intravenous contrast. DLP: 1109.[address] exam was performed using one or more of the following dose reduction techniques: automated exposure control, adjustment of the mA and/or kV according to patient size, and/or use of iterative reconstruction technique. COMPARISON: No relevant prior studies available. FINDINGS: Involutional changes which appear prominent for patient's age. Areas of decreased attenuation seen bilaterally suspected to represent chronic ischemic change and encephalomalacia/old infarcts. No acute infarct is appreciated by CT though if there is concern for acute ischemia, MRI is more sensitive. No intracranial hemorrhage or other acute intracranial finding. Imaged paranasal sinuses and mastoids well aerated. IMPRESSION: No acute intracranial findings. Chronic appearing findings, as discussed above.
[2017-07-09] MEDS ORDERED: SODIUM CHLORIDE 0.9% 1,000 ML IV ONE (23:32)
[2017-07-10] MEDS ORDERED: ALBUTEROL NEBULIZED 2.5 MG/3 ML INHALATION PRN ×2 (00:47→14:01)
[2017-07-10] MEDS ORDERED: HYDROmorphone 2 MG/ML 1 ML SYRINGE IVP PRN (00:47)
[2017-07-10] MEDS ORDERED: diphenhydrAMINE 50 MG/ML 1 ML VIAL IVP PRN (00:47)
[2017-07-10] MEDS ORDERED: METOCLOPRAMIDE 5 MG/ML 2 ML VIAL IVP PRN (00:47)
[2017-07-10] MEDS ORDERED: DIAZEPAM 5 MG/ML 2 ML SYRINGE IVP PRN (00:47)
[2017-07-10] MEDS ORDERED: KETOROLAC 30 MG/ML 1 ML VIAL IVP SCH (06:00)
[2017-07-10 06:12] VITALS: BMI 27.4
[2017-07-10] MEDS ORDERED: CYCLOBENZAPRINE 10 MG TAB PO SCH (09:00)
[2017-07-10] MEDS ORDERED: NICOTINE 14MG/24HR PATCH TRANSDERM SCH (09:00)
[2017-07-10] MEDS ORDERED: OXYBUTYNIN CHLORIDE 5 MG TAB PO SCH (09:00)
[2017-07-10] MEDS ORDERED: SUCRALFATE 1 GM TAB PO SCH (09:00)
[2017-07-10] MEDS ORDERED: FAMOTIDINE 20 MG TAB PO SCH (09:00)
[2017-07-10] MEDS ORDERED: NON-FORMULARY DRUG (Dextroamphetamine/Amphetamine [Adderall] 30 MG) PO SCH (09:00)
[2017-07-10] MEDS ORDERED: ENOXAPARIN 80 MG/0.8 ML SYRINGE SQ SCH (09:00)
[2017-07-10] MEDS ORDERED: CLOPIDOGREL 75 MG TAB PO SCH (09:00)
[2017-07-10] MEDS ORDERED: ALPRAZolam 0.5 MG TAB PO SCH (09:00)
--- NOTE | 2017-07-10 10:12 | CT ---
EXAMINATION TYPE: CT cervical spine wo con DATE OF EXAM: 07/10/2017 COMPARISON: MRI cervical spine April 10, 2017. HISTORY: Headache and neck pain increasing in severity. CT DLP: 427.4 mGycm. Automated Exposure Control for Dose Reduction was Utilized. TECHNIQUE: CT scan of the cervical spine is obtained without contrast, axial images are obtained, sa gittal and coronal reformatted images are also reviewed. FINDINGS: Cervical spine is visualized in its entirety from C1 through upper thoracic levels, there i s no reversal of normal cervical curvature which may be positional as more satisfactory alignment is seen on recent MRI without evidence of acute fracture or dislocation. Prevertebral soft tissue appea rs within normal limits. The C1-C2 articulation is within normal limits on the coronal images. Vertebral body heights and disc space heights are maintained. No large posterior disc herniations are seen on sagittal images. No significant spurring is present. Review of axial images shows no significant spinal canal stenosis or neural foraminal narrowing at an y cervical level. There is heterogeneous thyroid with subcentimeter nodularity present bilaterally. V isualized lung apices are clear. There is 1.3 x 0.7 cm oval well-circumscribed hyperdense mass acid filler ior left parotid gland on axial image 36 could reflect prominent lymph node, solid neoplasm is not ex cluded. IMPRESSION: There is no acute fracture or dislocation evident in the cervical spine. No significant change from recent MRI. Advise nonemergent thyroid ultrasound follow-up to assess suspected thyroid n odularity. Consider nonemergent parotid gland ultrasound or contrast-enhanced neck CT/MRI to assess l eft parotid gland or lesion.
[2017-07-10] MEDS ORDERED: ZOLPIDEM 10 MG TAB PO PRN ×2 (10:48→14:01)
[2017-07-10] MEDS ORDERED: HYDROmorphone 2 MG TAB PO PRN (10:56)
[2017-07-10] MEDS ORDERED: ACETAMINOPHEN SUPPOSITORY 650 MG SUPP RECTAL PRN (13:17)
[2017-07-10] MEDS ORDERED: BISACODYL 10 MG SUPP RECTAL PRN (13:18)
[2017-07-10] MEDS ORDERED: ONDANSETRON 4 MG/2 ML VIAL IVP PRN (13:19)
[2017-07-10] MEDS ORDERED: LORazepam 2 MG/ML SYRINGE IV PRN (13:20)
[2017-07-10] MEDS ORDERED: IPRATROPIUM-ALBUTEROL 3 ML NEB INHALATION PRN (13:20)
[2017-07-10] MEDS ORDERED: MORPHINE SULFATE (100 MG/2 ML) 100 MG in SODIUM CHLORIDE 0.9% 100 ML IV SCH (13:30)
[2017-07-10] MEDS ORDERED: ALENDRONATE SODIUM 10 MG PO SCH (14:15)
[2017-07-10] MEDS ORDERED: HEPARIN SODIUM,PORCINE 5,000 UNIT/ML 1 ML VIAL SQ SCH (16:00)
[2017-07-10] MEDS ORDERED: HYDROmorphone 2 MG TAB PO SCH (16:00)
[2017-07-10] MEDS ORDERED: FERROUS SULFATE 325 MG TAB PO SCH (17:30)
[2017-07-10] MEDS ORDERED: DIAZEPAM 5 MG/ML 2 ML SYRINGE IVP STA (17:42)
[2017-07-10] MEDS: FERROUS SULFATE 325 MG TAB PO SCH (18:03)
--- NOTE | 2017-07-10 20:28 | MR ---
EXAMINATION TYPE: MR MRA/MRV head wo con DATE OF EXAM: 07/10/2017 COMPARISON: NONE HISTORY: Headache, neck pain TECHNIQUE: Time of flight images focusing on the [place] were performed without contrast.. 2-D and 3-D postprocessing imaging is performed. FINDINGS: There is arterial flow in the anterior middle and posterior cerebral arteries. There is art erial flow in the vertebrobasilar artery system. There is bilateral patency of the posterior communic ating arteries. There is no mass effect. There is no evidence of aneurysm or neovascularity. There is arterial flow in both distal internal carotid arteries. I see no evidence of stenosis. There is normal signal pattern in the venous sinuses. There is no evidence of thrombosis. There is pa tency of the sagittal transverse and sigmoid sinus. IMPRESSION: Normal MR angiogram of the brain. Normal MR venogram of the brain.
[2017-07-10] MEDS: MORPHINE SULFATE ER 100 MG TABLET PO SCH (20:37)
[2017-07-10] MEDS: ALPRAZolam 0.5 MG TAB PO SCH (20:37)
[2017-07-10] MEDS: DOCUSATE 100 MG CAP PO SCH (20:38)
[2017-07-10] MEDS: AMITRIPTYLINE HCL 25 MG TAB PO SCH (20:38)
--- NOTE | 2017-07-10 20:39 | MR ---
EXAMINATION TYPE: MR brain wo/w mraneck wo/wcon DATE OF EXAM: 07/10/2017 COMPARISON: NONE HISTORY: Headache, neck pain TECHNIQUE: Multiplanar, multisequence images of the brain and brainstem is performed without and with IV contras t, utilizing 7.5 mL intravenous Gadavist . MR angiographic images were obtained of the neck. FINDINGS: There are wedge-shaped areas of abnormal increased signal on the T2 and FLAIR images involv ing the left posterior temporal lobe, right posterior frontal lobe, right occipital lobe. Anterior ri ght temporal lobe. This is consistent with multiple cortical infarcts. There is no midline shift. The re is enlargement of the right sylvian fissure compared to the left consistent with significant encep halomalacia. There is no midline shift. There is no sign of intracranial hemorrhage. The brainstem is intact. The cerebellum appears normal. There is a 7 mm focus of increased signal at the tom-white m atter junction of the insula left temporal lobe. There is mild increased signal in the white matter a round the lateral ventricles. There is no pathologic enhancement. There is arterial flow in the common internal and external carotid arteries bilaterally. There is art erial flow in the vertebral arteries. There is no evidence of carotid dissection. There is no evidenc e of stenosis. IMPRESSION: Old large right temporal lobe infarct. Multiple cortical infarcts involving the left and right tempor al lobes and right posterior frontal lobe that appear relatively old and also evident on the CT scan yesterday. There is no enhancement to suggest a subacute infarct. These measure up to [address] signal changes consistent with chronic small vessel ischemia. I do not see a definite acute infar ct. Normal MR angiogram of the neck.
[2017-07-10] MEDS ORDERED: DOCUSATE 100 MG CAP PO SCH (21:00)
[2017-07-10] MEDS ORDERED: NON-FORMULARY DRUG (Ciclopirox [Penlac] 1 APPLIC) TOPICAL SCH (21:00)
[2017-07-10] MEDS ORDERED: MORPHINE SULFATE ER 100 MG TABLET PO SCH ×2 (21:00)
[2017-07-10] MEDS ORDERED: AMITRIPTYLINE HCL 25 MG TAB PO SCH ×2 (21:00)
--- NOTE | 2017-07-11 01:36 | P.CNNES ---
History of Present Illness Consult date: 07/10/17 Requesting physician: Víctor Garces Reason for Consult: cephalgia, sticky platelet syndrome Chief complaint: cepahlgia History of Present Illness: Patient is a 47-year-old -[place] female being consult on him by neurology for cephalgia and history of sticky platelets syndrome. Patient states that she has been having headache that is lasted 2 weeks and that it will not relent. Patient has not had nausea, vomiting. Patient does state that the head pain is exacerbated by bright lights. She denies any other neurological deficits. Patient denies trauma. Patient states that the pain radiates from the posterior head into the neck and also into the frontal portion of her head. Patient discussed with me her extensive list of narcotics , opioids, benzodiazepines from her pain provider in [facility]. Staff are attempting to verify the validity of the patient's medication regimen. On contact, the patient was seated at the bedside, alert and oriented 3 with family present. Patient was extremely agitated and had to be redirected numerous times during the interaction. Patient stated that she left her room and proceeded to the pharmacy to attempt to stop her caregiver from obtaining her medication refills and diverting the medication. I expressed to the patient that staff could notify the pharmacy for her. She accepted the offer. Patient was extremely difficult to interview due to her agitated state. When inquiring about her medical problems and reason for presentation at the hospital , she almost solely and exclusively wanted to discuss her pain. We did discuss her headache and she stated that the IV steroids had helped. She expressed hope that the fusion would continue. I indicated to her that the patient's medication regimen did include ongoing IV steroid regimen per current protocol. previous to making contact with the patient, hospital staff it contacted the neurology office. Based on the patient's history of sticky platelets syndrome, stat imaging was ordered that included an MR of the brain, MRA, MRV to further investigate her medical history as well as the current etiology. Review of Systems all systems not previously noted are negative Past Medical History Past Medical History: Asthma, Deep Vein Thrombosis (DVT), Osteoarthritis (OA), Pulmonary Embolus (PE) Additional Past Medical History / Comment(s): sticky platelet, bronchitis, History of Any Multi-Drug Resistant Organisms: None Reported Past Surgical History: Cholecystectomy Additional Past Surgical History / Comment(s): BKA, Past Psychological History: Anxiety, Depression Additional Psychological History / Comment(s): Severe depression Smoking Status: Current every day smoker Past Alcohol Use History: None Reported Past Drug Use History: None Reported Medications and Allergies Home Medications Medication Instructions Recorded Confirmed Type Alendronate Sodium [Fosamax] 10 mg PO Q7D 09/06/16 07/09/17 History Clopidogrel Bisulfate [Plavix] 75 mg PO DAILY 09/06/16 07/09/17 History Cyclobenzaprine [Flexeril] 10 mg PO TID 09/06/16 07/09/17 History Enoxaparin [Lovenox] 80 mg SQ DAILY 09/06/16 07/09/17 History HYDROmorphone HCL [Dilaudid] 8 mg PO Q8HR PRN 09/06/16 07/10/17 History Morphine Sulfate [Rebeca] 100 mg PO BID 09/06/16 07/10/17 History Oxybutynin Chloride [Ditropan] 5 mg PO TID 09/06/16 07/09/17 History Sucralfate [Carafate] 1 gm PO TID 09/06/16 07/09/17 History Albuterol Sulfate [Ventolin HFA] 1 - 2 puff INHALATION RT-Q6H PRN 04/26/1707/09 History Amitriptyline HCl [Elavil] 25 mg PO HS 04/26/17 07/09/17 History Ciclopirox [Penlac] 1 applic TOPICAL HS 04/26/17 07/09/17 History Dextroamphetamine/Amphetamine 30 mg PO BID 04/26/17 07/10/17 History [Adderall] Famotidine [Pepcid] 20 mg PO DAILY 04/26/17 07/09/17 History Nicotine 14Mg/24Hr Patch [Habitrol] 1 patch TRANSDERM DAILY #14 patch 04/28/17 07/09/17 Rx ALPRAZolam [Xanax] 2 mg PO BID 07/10/17 07/10/17 History Zolpidem Tartrate [Ambien] 10 mg PO HS PRN 07/10/17 07/10/17 History Allergies Allergy/AdvReac Type Severity Reaction Status Date / Time trazodone Allergy Chest Pain Verified 07/09/17 21:22 acetaminophen AdvReac Unknown Verified 07/09/17 21:22 Physical Examination - Vital Signs Vital Signs: Vital Signs Temp Pulse Pulse Resp BP Pulse Ox 07/10/17 23:00 96.3 F L 69 16 111/58 93 L 07/10/17 16:00 91 16 07/10/17 15:00 96.7 F L 91 152/89 100 07/10/17 13:57 84 16 07/10/17 13:49 84 16 07/10/17 07:52 94 18 07/10/17 07:00 96.8 F L 94 114/56 100 07/10/17 02:52 96.4 F L 90 18 132/81 100 Intake and Output 07/10/17 07/10/17 07/11/17 14:59 22:59 06:59 Intake Total 240 200 Balance 240 200 Intake: Intake, IV Titration 100 Amount methylPREDNISolone SOD 100 SUCC 250 mg In Sodium Chloride 0.9% 100 ml @ 100 mls/hr IVPB Q6HR DEIRDRE Rx#:[id number] Oral 240 100 Other: # Voids 5 5 Constitutional: AOx3, intermittently cooperative HEENT: NC/AT, no facial asymmetry is seen. Throat: Supple, no masses Respiratory: No increased work of breathing Cardiac: Regular rate and Rhythm GI: non tender, non distended Musculoskeletal: Drive Tester strengths are equal bilaterally 5/5, Lower extremity strengths are unequal bilaterally at right 5/5, left is a below the knee amputation. Neurological: CN II-XII in tact, patient was AOx3, speech and language are normal, no unilateralizing weakness, no seizure activity note on physical exam. Sensation was normal. Integementary: no rash, no erythema Psychiatric: mood and affect appropriate Results - Diagnostic Findings Additional findings: MRI cervical spine: No acute fracture or dislocation evident in the cervical spine. No significant change from recent MRI. Advise nonemergent thyroid ultrasound follow-up to assess suspected thyroid nodularity. Consider nonemergent parotid gland ultrasound or contrast-enhanced neck CT/MRI to assess left parotid gland or lesion. MRA, MRV of the head: normal MR angiogram of the brain normal MR venogram of the brain MR angiogram of the neck: Normal. 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 Multiple cortical infarcts involving the left and right temporal lobes and right posterior frontal lobe that appeared relatively old and also evident on CT scan yesterday. There is no enhancement to suggest a subacute infarct. These measure up to 3 cm. White matter signal changes consistent with chronic small vessel ischemia. No definite acute infarct observed. Assessment and Plan (1) History of blood clots Status: Acute (2) Migraine Status: Acute Plan: History of blood clots: Patient does have documented history of predisposition to blood clots. Based on the patient's complaints of head pain, stat imaging was obtained to further investigate her complaints. Imaging directly related to her complaints was found to be noncontributory. Abnormals were noted in the results section. Based on the unremarkable/noncontributory imaging findings, it does not appear that the patient's coagulation status is a contributory factor at this time. Recommend possible consultation with hematology. Patient states she has not been followed by hematology on a regular basis for her disorders. Migraine/head pain/status migrainosus: Patient does have a history of migraine/head pain. Her pain is characterized as both posterior to anterior as well as posterior to cervical paraspinal region. Patient did have tenderness to touch and palpation over the greater occipital nerve bilaterally. Patient did also have stiffness in the cervical paraspinal muscles. Patient had extensive imaging of the head and neck is noted in #1 above. At this time, the patient is improving with the use of IV steroid infusion.Patient does use significant pain medication including MS Contin, Dilaudid which currently is approximately 240 mg per day of morphine equivalent. patient did state that her narcotic/opiate pain medication assists with managing her head pain. Had a significant discussion with the patient regarding first-line second line the third line agents for headache/head pain. If the patient is seen in the office post discharge, her medication regimen will need to be evaluated and brought into compliance with current prescribing guidelines. status: Neurology will continue to follow provide updates as needed or warranted. Contact our office with any questions I discussed the patient's pertinent medical information with Dr. Maria. He agrees with the plan of care as implemented.
[2017-07-11] MEDS: ALPRAZolam 0.5 MG TAB PO SCH ×2 (08:18→21:04)
[2017-07-11] MEDS: FERROUS SULFATE 325 MG TAB PO SCH ×2 (08:19→18:09)
[2017-07-11] MEDS: MORPHINE SULFATE ER 100 MG TABLET PO SCH ×2 (08:19→23:13)
[2017-07-11] MEDS: NICOTINE 14MG/24HR PATCH TRANSDERM SCH (08:20)
[2017-07-11] MEDS: DOCUSATE 100 MG CAP PO SCH ×2 (08:20→21:05)
[2017-07-11] MEDS: ENOXAPARIN 80 MG/0.8 ML SYRINGE SQ SCH (08:20)
[2017-07-11] MEDS ORDERED: ENOXAPARIN 80 MG/0.8 ML SYRINGE SQ SCH (09:00)
--- NOTE | 2017-07-11 09:59 | HP ---
HISTORY AND PHYSICAL CHIEF COMPLAINT: This is a 47-year-old, female, complaining of occipital headache, severe in nature from her neck up toward the posterior back of her neck. Neurology consult with Dr. Maria is pending. She has mild nausea and no vomiting. Bright lights make it worse. She has never had a headache like this before. CT scan shows no acute stroke, but multiple old strokes. 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 HOME MEDICATIONS: 1. Xanax. 2. Fosamax. 3. Plavix. 4. Flexeril. 5. Lovenox. 6. Dilaudid. 7. Rebeca. 8. Ditropan. 9. Carafate. 10.Ventolin HFA. 11.Elavil. 12. . 13.Adderall. 14.Pepcid. ALLERGIES: TRAZODONE AND ACETAMINOPHEN REVIEW OF SYSTEMS: 14-point review of systems negative except for as mentioned in HPI. PAST MEDICAL HISTORY: Asthma, DVT, osteoarthritis, pulmonary embolism, sticky platelets syndrome. PAST SURGICAL HISTORY: Cholecystectomy. SOCIAL HISTORY: Current smoker. No alcohol, no illicit drugs. 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 PHYSICAL EXAMINATION: Vital signs stable. Afebrile. She is alert, oriented x3. CARDIOVASCULAR: S1, S2. LUNGS: Transmitted upper airway sounds. PSYCH: Fair mood and affect. NEUROLOGIC: Cranial nerves are intact. Alert orient x3. HEMATOLOGIC: Negative Homans. GI: Soft, nontender. OPHTHALMOLOGIC: Eyes pupils equal, round, reactive to light and accommodation. ASSESSMENT: 1. Migraine tension headache, rule out TIA. 2. Multiple strokes. 3. Sticky platelet syndrome. Please see further orders. There is a mix up on her medicine this morning with medications that were ordered. This has been fixed by nursing construction supervisor and with Dr. Maria. The patient will have MRIs and CTs over cervical spine and MRI of her brain. Await neurology consultation for atypical headaches of the posterior occipital area. Suspect occipital neuritis. MMODL / IJN: [id number] /
[2017-07-11] MEDS ORDERED: Acetaminophen-Codeine 300-30mg TAB PO PRN ×2 (12:19)
[2017-07-11] MEDS: HYDROmorphone 2 MG TAB PO PRN ×2 (12:50→21:05)
[2017-07-11 13:04] LABS: Anisocytosis Slight; CH 22.1; CHCM 28.1; HCT 35.5 % (34.0-46.0); HDW 3.19; HGB 9.9 gm/dL (11.4-16.0); Hypochromasia Marked; MCH 22.1 pg (25.0-35.0); MCHC 27.9 g/dL (31.0-37.0); MCV 79.2 fL (80.0-100.0); Mean Platelet Volume 6.3; Microcytosis Slight; RBC 4.48 m/uL (3.80-5.40); WBC (Perox) 24.62
[2017-07-11 13:07] LABS: WBC 25.8 k/uL (3.8-10.6)
[2017-07-11 13:26] LABS: Add Differential Manual Differential
[2017-07-11 13:28] LABS: Band Neutrophils % 1 %; Nucleated Red Blood Cells 0 /100 WBC (0-0); Polychromasia Present; Total Cells Counted 100
[2017-07-11 14:02] LABS: ALT 30 U/L (9-52); AST 28 U/L (14-36); Alkaline Phosphatase 87 U/L (38-126); Anion Gap 12 mmol/L; Blood Urea Nitrogen 9 mg/dL (7-17); C Reactive Protein <5.0 mg/L (<10.0); Calcium 9.8 mg/dL (8.4-10.2); Carbon Dioxide 26 mmol/L (22-30); Chloride 104 mmol/L (98-107); Erythrocyte Sedimentation Rate 20 mm/hr (0-20); Glucose 182 mg/dL (74-99); Non-African American GFR(MDRD) >60 (>60 ml/min/1.73 sqM); Sodium 142 mmol/L (137-145); Total Bilirubin 0.2 mg/dL (0.2-1.3); Total Protein 7.5 g/dL (6.3-8.2)
[2017-07-11] MEDS: AMITRIPTYLINE HCL 25 MG TAB PO SCH (21:05)
--- NOTE | 2017-07-12 01:01 | P.PN ---
Subjective Principal diagnosis: cephalgia patient is a 47-year-old -[place] female being followed by neurology for cephalgia. Patient has been having a headache that has lasted 2 weeks and will not relent. Patient has not had nausea, vomiting. Patient does state that the head pain is exacerbated by bright lights and stress. Patient denies any other neurological deficits, trauma. Patient states the pain radiates in the posterior head and the neck and also into the frontal portion of the head. Patient discussed with me her extensive list of narcotics, opioids, benzodiazepines from her pain provider in [facility]. On contact, the patient was seated at the bedside, family in the room, alert and oriented 3 with family present. Nursing staff was also in the room. Patient was agitated and had to be redirected numerous times during the interaction. Patient made statements inconsistent with physical exam findings as well as was seen moving about unobstructed and uninhibited but claimed that her head pain was a 10 out of 10. Patient made persistent requests for increased pain medication included opiates narcotics and benzodiazepines. Patient repeatedly stated that her pain was not being adequately addressed. Patient had to be redirected that neurology was not acting as her pain management provider but solely evaluating her complaints related to her headaches/migraine pain. When confronted with incisistencies in her exam findings patient would immediately attempt to rediscuss her pain medication and lack of pain management. Patient was observed to be verbally confrontational with staff as well. Objective - Vital Signs Vital signs: Vital Signs Temp 98.2 F 07/11/17 23:00 Pulse 75 07/11/17 23:00 Resp 18 07/11/17 23:00 BP 111/62 07/11/17 23:00 Pulse Ox 100 07/11/17 23:00 Intake & Output 07/11/17 07/11/17 07/12/17 06:59 18:59 06:59 Intake Total 200 100 Balance 200 100 Intake: IV 100 methylPREDNISolone SOD 100 SUCC 250 mg In Sodium Chloride 0.9% 100 ml @ 100 mls/hr IVPB Q6HR DEIRDRE Rx#:[id number] Intake, IV Titration 100 Amount methylPREDNISolone SOD 100 SUCC 250 mg In Sodium Chloride 0.9% 100 ml @ 100 mls/hr IVPB Q6HR DEIRDRE Rx#:[id number] Oral 100 Other: # Voids 2 - Exam Constitutional: AOx3, cooperative HEENT: NC/AT, no facial asymmetry is seen. Throat: Supple, no masses Respiratory: No increased work of breathing Cardiac: Regular rate and Rhythm GI: non tender, non distended Musculoskeletal: Medical [employer] Scientific Illustrator strengths are equal bilaterally 5/5, lower extremity strength are unequal bilaterally at right 5 out of 5, left is a below the knee amputation. Neurological: CN II-XII in tact, patient was AOx3, speech and language are normal, no unilateralizing weakness, no seizure activity note on physical exam. Sensation was normal. Integementary: no rash, no erythema Psychiatric: mood and affect appropriate - Labs CBC & Chem 7: 07/11/17 12:38 07/11/17 12:38 Labs: Abnormal Lab Results - Last 24 Hours (Table) 07/11/17 07/11/17 Range/Units 12:38 12:38 WBC 25.8 H* (3.8-10.6) k/uL Hgb 9.9 L (11.4-16.0) gm/dL MCV 79.2 L (80.0-100.0) fL MCH 22.1 L (25.0-35.0) pg MCHC 27.9 L (31.0-37.0) g/dL RDW 17.0 H (11.5-15.5) % Plt Count 508 H (150-450) k/uL Neutrophils # (Manual) 22.90 H (1.3-7.7) k/uL Monocytes # (Manual) 1.29 H (0-1.0) k/uL Creatinine 0.50 L (0.52-1.04) mg/dL Glucose 182 H (74-99) mg/dL Assessment and Plan (1) History of blood clots Status: Acute (2) Migraine Status: Acute Plan: Migraine/head pain/status migrainosus: Patient does have a history of migraine/head pain. Her pain is characterized as both posterior to anterior as well as posterior to cervical paraspinal region. Patient did have tenderness to touch and palpation over the greater occipital nerve bilaterally. Patient did also have stiffness in the cervical paraspinal muscles. Patient had extensive imaging of the head and neck is noted in #1 above. At this time, the patient is still IV steroid infusion. Patient does use significant pain medication including MS Contin, Dilaudid which currently is approximately 240 mg per day of morphine equivalent. Patient did state that her narcotic/opiate pain medication assists with managing her head pain. Had a significant discussion with the patient regarding first-line second line the third line agents for headache/head pain. patient's physical exam findings and statements were found to be inconsistent on a regular basis during the interaction. Patient claims to be in severe distress related to her head pain but her physical exam findings do not correlate with a need for increased medication. It is possible that if this continues, psychiatric consult should be recommended to assess the patient possible medication addiction. status: Neurology will continue to follow provide updates as needed or warranted. Contact our office with any questions I discussed the patient's pertinent medical information with Dr. Maria. He agrees with the plan of care as implemented.
[2017-07-12] MEDS: MORPHINE SULFATE ER 100 MG TABLET PO SCH (07:39)
[2017-07-12] MEDS: ALPRAZolam 0.5 MG TAB PO SCH (07:39)
[2017-07-12] MEDS: FERROUS SULFATE 325 MG TAB PO SCH (07:40)
[2017-07-12] MEDS: DOCUSATE 100 MG CAP PO SCH (07:40)
[2017-07-12] MEDS: NICOTINE 14MG/24HR PATCH TRANSDERM SCH (07:41)
[2017-07-12] MEDS: ENOXAPARIN 80 MG/0.8 ML SYRINGE SQ SCH (07:41)
[2017-07-12] MEDS: INSULIN LISPRO (humaLOG) 300 UNIT/3 ML VIAL SQ SCH ×2 (07:46→12:00)
[2017-07-12 07:54] LABS: Glucose,Whole Blood 140 mg/dL (75-99)
[2017-07-12 09:12] VITALS: BP 117/53; PULSE 70; RESP 20; TEMP 97.8
[2017-07-12 11:18] LABS: Glucose,Whole Blood 217 mg/dL (75-99)
--- NOTE | 2017-07-12 12:03 | PN ---
PROGRESS NOTE DATE OF SERVICE: 07/11/2017 I am covering for Dr. Garces This 47-year-old woman who was admitted with significant headache being evaluated for vascular headaches and migraine or tension-type headaches recently had MRI and MRA also. Patient on multiple medications. The MRI showed old large right temporal lobe infarct. Multiple infarcts also noted. Neurology is evaluating. Patient has sticky platelet syndrome. PAST MEDICAL HISTORY: Reviewed. REVIEW OF SYSTEMS: CARDIOVASCULAR: No angina. RESPIRATORY: As mentioned. GI: As mentioned earlier. : No dysuria. NERVOUS SYSTEM: As mentioned earlier. CURRENT MEDICATIONS: Reviewed and include: 1. Ventolin. 2. Xanax. 3. Elavil 25 mg q.6. 4. Lovenox. 5. Iron sulfate. 6. Dilaudid. 7. Solu-Medrol 250 IV q.6h. 9. Habitrol 14. 10.Ambien. PHYSICAL EXAM: Patient is alert, oriented x3. Pulse is 69, blood pressure 111/50, respirations 16, temperature 97.1, pulse ox 94% on room air. HEENT: Conjunctivae normal. Oral mucosa moist. NECK: No jugular venous distention. No carotid bruit. No lymph nodes. CARDIOVASCULAR: S1, S2. RESPIRATORY: Breath sounds diminished at the bases. Scattered rhonchi and crackles. ABDOMEN: Soft, nontender, no mass palpable. LEGS: No edema, no swelling. NERVOUS SYSTEM: Higher function as mentioned. Moves all four limbs. No focal motor deficits. LYMPHATIC: No lymphadenopathy in the neck, axillae or groin. SKIN: No rash, ulcer or bleeding. LABS: WBC 24.8, hemoglobin is 9.9, and glucose 182. ASSESSMENT: 1. Acute severe headache, rule out acute migrainous headache and status migrainous. 2. Old large right temporal infarct and multiple infarcts. 3. Multiple strokes. 4. Sticky platelet syndrome. 5. Increased WBC. RECOMMENDATIONS AND DISCUSSION: In this 47-year-old woman who presents with multiple complex medical issues, will monitor patient closely. Continue with current medications. Continue symptomatic treatment. Add Tylenol #3 and continue the pain medications, which are reviewed. Will repeat the labs. Monitor Accu-Cheks closely. Prognosis guarded because of multiple complex medical issues. Further recommendations to follow. Discussed with family. MMODL / IJN: [id number] / LUIS
[2017-07-12 12:54] LABS: Anisocytosis Slight; CHCM 28.3; HCT 35.1 % (34.0-46.0); HDW 3.27; HGB 10.5 gm/dL (11.4-16.0); Hypochromasia Marked; MCH 23.3 pg (25.0-35.0); MCHC 29.8 g/dL (31.0-37.0); MCV 78.1 fL (80.0-100.0); Mean Platelet Volume 7.1; Microcytosis Slight; RBC 4.49 m/uL (3.80-5.40); RDW 16.9 % (11.5-15.5); WBC (Perox) 29.46
[2017-07-12 12:59] LABS: WBC 27.6 k/uL (3.8-10.6)
[2017-07-12 13:28] LABS: Add Differential Manual Differential
[2017-07-12 13:29] LABS: Nucleated Red Blood Cells 0 /100 WBC (0-0); Polychromasia Present; Total Cells Counted 100
[2017-07-12 13:55] LABS: Anion Gap 14 mmol/L; Blood Urea Nitrogen 10 mg/dL (7-17); Calcium 9.3 mg/dL (8.4-10.2); Carbon Dioxide 21 mmol/L (22-30); Chloride 105 mmol/L (98-107); Glucose 186 mg/dL (74-99); Non-African American GFR(MDRD) >60 (>60 ml/min/1.73 sqM); Potassium 3.2 mmol/L (3.5-5.1); Sodium 140 mmol/L (137-145)
--- NOTE | 2017-07-12 17:23 | P.DS ---
Providers Date of admission: 07/11/17 15:36 Attending physician: Víctor Garces Consults: 07/10/17 14:08 anesthesia [Consult Anesthesia] Routine Consulting Provider: Anesthesia,Services Consult Reason/Comments: cervical injection pain management 07/10/17 14:09 Consult Physician Routine Consulting Provider: Temo Maria Consult Reason/Comments: neck pain Do you want consulting provider notified?: Already Contacted Primary care physician: Garcia Resendez MD Hospital Course: This 47-year-old woman with a past medical history multiple medical problems multiple infarcts and sticky platelets syndrome was admitted for severe headaches and migrainous scapulalgia possibly status migrainous. Patient was seen by Dr. Maria the neurologist. Dr. Garces followed up the patient during the hospitalization. Patient was given high-dose IV steroids and the symptomatic treatment. Patient improved significantly. Patient is recommended to follow-up with the primary physician outpatient setting as well as neurology also. On exam vitals stable. S1 and S2 normal. Breath sounds equal. Abdomen soft nontender. Nervous system unchanged. Final diagnosis 1. Acute severe headache possibly acute migrainous headache and status migrainous. 2. Old large right temporal infarct and multiple infarcts. 3. Multiple strokes 4. Sticky platelet syndrome 5. Increased WBC possibly secondary to steroids. Plan - Discharge Summary New Discharge Prescriptions: New Docusate [Colace] 100 mg PO BID PRN #30 cap PRN Reason: Constipation Nicotine 14Mg/24Hr Patch [Habitrol] 1 patch TRANSDERM DAILY #30 patch Continue Oxybutynin Chloride [Ditropan] 5 mg PO TID HYDROmorphone HCL [Dilaudid] 8 mg PO Q8HR PRN PRN Reason: Pain Alendronate Sodium [Fosamax] 10 mg PO Q7D Sucralfate [Carafate] 1 gm PO TID Morphine Sulfate [Rebeca] 100 mg PO BID Cyclobenzaprine [Flexeril] 10 mg PO TID Enoxaparin [Lovenox] 80 mg SQ DAILY Clopidogrel Bisulfate [Plavix] 75 mg PO DAILY Amitriptyline HCl [Elavil] 25 mg PO HS Famotidine [Pepcid] 20 mg PO DAILY Dextroamphetamine/Amphetamine [Adderall] 30 mg PO BID Albuterol Sulfate [Ventolin HFA] 1 - 2 puff INHALATION RT-Q6H PRN PRN Reason: Shortness Of Breath Ciclopirox [Penlac] 1 applic TOPICAL HS Nicotine 14Mg/24Hr Patch [Habitrol] 1 patch TRANSDERM DAILY #14 patch Zolpidem Tartrate [Ambien] 10 mg PO HS PRN PRN Reason: Insomnia ALPRAZolam [Xanax] 2 mg PO BID Discharge Medication List Alendronate Sodium [Fosamax] 10 mg PO Q7D 09/06/16 [History] Clopidogrel Bisulfate [Plavix] 75 mg PO DAILY 09/06/16 [History] Cyclobenzaprine [Flexeril] 10 mg PO TID 09/06/16 [History] Enoxaparin [Lovenox] 80 mg SQ DAILY 09/06/16 [History] HYDROmorphone HCL [Dilaudid] 8 mg PO Q8HR PRN 09/06/16 [History] Morphine Sulfate [Rebeca] 100 mg PO BID 09/06/16 [History] Oxybutynin Chloride [Ditropan] 5 mg PO TID 09/06/16 [History] Sucralfate [Carafate] 1 gm PO TID 09/06/16 [History] Albuterol Sulfate [Ventolin HFA] 1 - 2 puff INHALATION RT-Q6H PRN 04/26/17 [ History] Amitriptyline HCl [Elavil] 25 mg PO HS 04/26/17 [History] Ciclopirox [Penlac] 1 applic TOPICAL HS 04/26/17 [History] Dextroamphetamine/Amphetamine [Adderall] 30 mg PO BID 04/26/17 [History] Famotidine [Pepcid] 20 mg PO DAILY 04/26/17 [History] Nicotine 14Mg/24Hr Patch [Habitrol] 1 patch TRANSDERM DAILY #14 patch 04/28/17 [ Rx] ALPRAZolam [Xanax] 2 mg PO BID 07/10/17 [History] Zolpidem Tartrate [Ambien] 10 mg PO HS PRN 07/10/17 [History] Docusate [Colace] 100 mg PO BID PRN #30 cap 07/12/17 [Rx] Nicotine 14Mg/24Hr Patch [Habitrol] 1 patch TRANSDERM DAILY #30 patch 07/12/17 [ Rx] Follow up Appointment(s)/Referral(s): [facility] [Other] - 3 Days (Pt to call Thursday07/14/17 for an appointment ) Temo Maria MD [STAFF PHYSICIAN] - 1 Week (The office is closed, patient to call Thursday07/14/17 to make appointment) Ambulatory/Diagnostic Orders: Complete Blood Count w/diff [LAB.AMB] Location: Determined By Patient Patient Instructions/Handouts: Laxative, Stool Softeners (By mouth), Nicotine ( Absorbed through the skin) Activity/Diet/Wound Care/Special Instructions: diet cardiac act limited till f/u Discharge Disposition: HOME SELF-CARE
[2017-07-13 07:57] LABS: Hemoglobin A1C 6.3 % (4.2-6.1)
== END 2017-07-12 15:52 | disposition home or self-care (01) | DRG 103 ==
LOC: EC 21:15 → 5ONC 23:33 → OBSVTOIN 07-11 15:36
PROVIDERS: ADMIT Family Medicine; ATTEND Family Medicine
DX: G43.901 Migraine, unspecified, not intractable, with status migrainosus (principal); D69.1 Qualitative platelet defects; T38.0X5A Adverse effect of glucocorticoids and synthetic analogues, initial encounter; R45.1 Restlessness and agitation; M19.90 Unspecified osteoarthritis, unspecified site; D72.829 Elevated white blood cell count, unspecified; G89.29 Other chronic pain; J45.909 Unspecified asthma, uncomplicated; F32.9 Major depressive disorder, single episode, unspecified; F41.9 Anxiety disorder, unspecified; F17.200 Nicotine dependence, unspecified, uncomplicated; Z86.711 Personal history of pulmonary embolism; Z79.02 Long term (current) use of antithrombotics/antiplatelets; Z87.09 Personal history of other diseases of the respiratory system; Z79.83 Long term (current) use of bisphosphonates; Z79.891 Long term (current) use of opiate analgesic; Z88.6 Allergy status to analgesic agent; Z88.8 Allergy status to other drugs, medicaments and biological substances; Z86.73 Personal history of transient ischemic attack (TIA), and cerebral infarction without residual deficits; Z89.512 Acquired absence of left leg below knee; Z86.718 Personal history of other venous thrombosis and embolism; Z86.19 Personal history of other infectious and parasitic diseases; Z90.49 Acquired absence of other specified parts of digestive tract
CPT/HCPCS: 70450; 70544; 70549; 70553; 72125; 80048; 80053; 83036; 85025; 85652; 86140; 94640; 96365; 96375; 99285

== ENCOUNTER 2017-07-17 15:17 | Emergency (ER) | payer MEDICARE, OTHER ==
--- NOTE | 2017-07-17 15:49 | ED ---
General Adult HPI - General Chief complaint: Extremity Injury, Lower Stated complaint: fluid retention Time Seen by Provider: 07/17/17 15:26 Source: patient Mode of arrival: wheelchair Limitations: no limitations - History of Present Illness Initial comments: The patient is a 47-year-old female with an extensive vascular history and a history of "sticky platelets syndrome" presents with a chief complaint of right leg swelling. Patient had a left [id number] amputation 5 years ago secondary to dry gangrene and started on her big toe. Patient has had several bypasses performed at [facility] in [place]. Patient states that when she went to bed last night her leg looks normal and this morning she woke up and it was extremely swollen. She describes a tingling or prickly sensation in her right lower leg. She cannot identify any aggravating or alleviating factors. She cannot think of any inciting incident. Patient takes Plavix and Lovenox daily. She has been compliant. Onset/Timin -: hour(s) Location: lower extremity Radiation: non-radiation Consistency: constant Improves with: none Worsens with: none Associated Symptoms: denies other symptoms - Related Data Home Medications Medication Instructions Recorded Confirmed Alendronate Sodium [Fosamax] 10 mg PO TH 09/06/16 07/17/17 Clopidogrel Bisulfate [Plavix] 75 mg PO DAILY 09/06/16 07/17/17 Cyclobenzaprine [Flexeril] 10 mg PO TID 09/06/16 07/17/17 Enoxaparin [Lovenox] 80 mg SQ DAILY 09/06/16 07/17/17 HYDROmorphone HCL [Dilaudid] 8 mg PO Q8HR PRN 09/06/16 07/17/17 Morphine Sulfate [Rebeca] 100 mg PO BID 09/06/16 07/17/17 Oxybutynin Chloride [Ditropan] 5 mg PO TID 09/06/16 07/17/17 Sucralfate [Carafate] 1 gm PO TID 09/06/16 07/17/17 Albuterol Sulfate [Ventolin HFA] 1 - 2 puff INHALATION RT-Q6H PRN 04/26/1707/17 Amitriptyline HCl [Elavil] 25 mg PO HS 04/26/17 07/17/17 Dextroamphetamine/Amphetamine 30 mg PO BID 04/26/17 07/17/17 [Adderall] Famotidine [Pepcid] 20 mg PO DAILY 04/26/17 07/17/17 ALPRAZolam [Xanax] 2 mg PO BID 07/10/17 07/17/17 Zolpidem Tartrate [Ambien] 10 mg PO HS PRN 07/10/17 07/17/17 Previous Rx's Medication Instructions Recorded Docusate [Colace] 100 mg PO BID PRN #30 cap 07/12/17 Nicotine 14Mg/24Hr Patch [Habitrol] 1 patch TRANSDERM DAILY #30 patch 07/12/17 Allergies Allergy/AdvReac Type Severity Reaction Status Date / Time trazodone Allergy Chest Pain Verified 07/17/17 15:48 acetaminophen AdvReac Unknown Verified 07/17/17 15:48 Review of Systems ROS Statement: Those systems with pertinent positive or pertinent negative responses have been documented in the HPI. ROS Other: All systems not noted in ROS Statement are negative. Constitutional: Denies: fever, chills Eyes: Denies: vision change ENT: Denies: ear pain, throat pain Respiratory: Denies: cough, dyspnea Cardiovascular: Denies: chest pain Endocrine: Denies: fatigue Gastrointestinal: Denies: abdominal pain, nausea, vomiting Genitourinary: Denies: dysuria Musculoskeletal: Denies: back pain Skin: Denies: rash Neurological: Denies: headache Past Medical History Past Medical History: Asthma, Deep Vein Thrombosis (DVT), Osteoarthritis (OA), Pulmonary Embolus (PE) Additional Past Medical History / Comment(s): sticky platelet, bronchitis, History of Any Multi-Drug Resistant Organisms: None Reported Past Surgical History: Cholecystectomy Additional Past Surgical History / Comment(s): BKA, Past Psychological History: Anxiety, Depression Smoking Status: Current every day smoker Past Alcohol Use History: None Reported Past Drug Use History: None Reported General Exam Limitations: no limitations General appearance: alert, in no apparent distress Head exam: Present: atraumatic, normocephalic Eye exam: Present: normal appearance ENT exam: Present: normal exam Neck exam: Present: normal inspection Respiratory exam: Present: normal lung sounds bilaterally. Absent: respiratory distress, wheezes Cardiovascular Exam: Present: regular rate, normal rhythm GI/Abdominal exam: Present: soft. Absent: distended, tenderness Rectal exam: Present: deferred Extremities exam: Present: calf tenderness, other (Patient has had a left below the knee amputation. Examination of the right leg shows normal color, however skin feels cool to touch. Patient is able to move her extremity. There is nonpitting edema present from the top of the foot to the mid thigh) Back exam: Present: normal inspection Neurological exam: Present: alert, oriented X3 Psychiatric exam: Present: normal affect, normal mood Skin exam: Present: dry, intact, normal color Course Vital Signs 07/17/17 15:20 Temperature 98.0 F Pulse Rate 105 H Respiratory 20 Rate Blood Pressure 127/65 O2 Sat by Pulse 99 Oximetry Medical Decision Making - Medical Decision Making Patient presents with a chief complaint of right lower extremity edema since this morning. Patient has extensive vascular history which is required several bypasses, and a history of a left below the knee amputation. Patient sees a vascular surgeon downtown at [facility] by the name of Dr. Ruiz. We'll send basic labs and coagulation studies. We'll send patient for ultrasound of the right lower extremity. I will try to contact Dr. Marie to discuss the case. 5:02 PM A Doppler was performed of the right lower extremity. I spoke with the billing and quality technician who states that the study was negative for DVT however there is no flow in the right iliac graft. Currently I have a page out to Dr. Marie, will likely transfer this patient for continuation of care. Patient does not have Doppler signal in the DP pulse however there is a very faint signal and PT pulse. 8:12 PM Several times were made to contact Dr. Marie without success. I spoke with Dr. Gardiner, vascular surgeon in-house was unavailable to evaluate the patient. Patient still complains of pain in the right lower extremity. Review of her previous records showed that she didn't fact have a CAT scan in April that showed occlusion of existing graft. I spoke with Dr. oCrdoba who is an ER physician at the [facility] who was able to review this patient's chart with me. She states that the vascular occlusions were known, and that the patient had right lower extremity ABIs of 0.62. At the time, the decision was made to watch and wait. Given the patient's change in symptomatology today , I don't think it would be prudent to send the patient home. Dr. cordoba is willing to accept transfer of this patient for evaluation by vascular surgery. Patient family are agreeable with the care plan. EMTALA was signed, risks and benefits explained. All questions are answered at this time. - Lab Data Result diagrams: 07/17/17 18:08 07/17/17 18:08 Lab Results 07/17/17 07/17/17 07/17/17 Range/Units 18:08 18:08 18:08 WBC 7.5 (3.8-10.6) k/uL RBC 4.31 (3.80-5.40) m/uL Hgb 10.0 L (11.4-16.0) gm/dL Hct 33.0 L (34.0-46.0) % MCV 76.7 L (80.0-100.0) fL MCH 23.2 L (25.0-35.0) pg MCHC 30.2 L (31.0-37.0) g/dL RDW 17.5 H (11.5-15.5) % Plt Count 469 H (150-450) k/uL Neutrophils % 61 % Lymphocytes % 25 % Monocytes % 8 % Eosinophils % 3 % Basophils % 0 % Neutrophils # 4.6 (1.3-7.7) k/uL Lymphocytes # 1.9 (1.0-4.8) k/uL Monocytes # 0.6 (0-1.0) k/uL Eosinophils # 0.2 (0-0.7) k/uL Basophils # 0.0 (0-0.2) k/uL Hypochromasia Marked Anisocytosis Slight Microcytosis Slight PT 9.7 (9.0-12.0) sec INR 0.9 (<1.2) APTT 22.1 (22.0-30.0) sec Sodium 137 (137-145) mmol/L Potassium 4.5 (3.5-5.1) mmol/L Chloride 105 (98-107) mmol/L Carbon Dioxide 25 (22-30) mmol/L Anion Gap 7 mmol/L BUN 4 L (7-17) mg/dL Creatinine 0.40 L (0.52-1.04) mg/dL Est GFR (MDRD) Af Amer >60 (>60 ml/min/1.73 sqM) Est GFR (MDRD) Non-Af >60 (>60 ml/min/1.73 sqM) Glucose 93 (74-99) mg/dL Calcium 9.0 (8.4-10.2) mg/dL Critical Care Time Critical Care Time: Yes Total Critical Care Time: 45 Disposition Clinical Impression: Ischemic leg, Ankle sprain and strain, Vasculopathy, Leg pain, 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 Specs Out of Hospital Transfer - Requested Specifics: Other Emergency Center ([facility])
--- NOTE | 2017-07-17 17:17 | US ---
EXAMINATION TYPE: US venous Doppler duplex LE RT DATE OF EXAM: 07/17/2017 5:06 PM COMPARISON: US 04/26/17 CLINICAL HISTORY: Pain. EC patient with Right leg pain and swelling today; left BK amputee; patient s tated has sticky platelet syndrome; Right Femoral Artery (?) bypass graft by Dr Marie at [facility]. SIDE PERFORMED: Right TECHNIQUE: The lower extremity deep venous system is examined utilizing real time linear array sonog neha with graded compression, Doppler sonography and color-flow sonography. VESSELS IMAGED: Common Femoral Vein Deep Femoral Vein Greater Saphenous Vein * Femoral Vein Popliteal Vein Small Saphenous Vein * Proximal Calf Veins (* superficial vessels) Right Leg: Negative for DVT Incidental note: Right [employer]/ Femoral Artery Bypass Graft no color flow is detected. IMPRESSION: No evidence of deep venous thrombosis in the right leg. There is evidence for thrombosis of the arterial bypass graft.
[2017-07-17] MEDS: HYDROmorphone 1 MG/ML 1 ML SYRINGE IVP STA ×2 (17:26→17:54)
[2017-07-17] MEDS ORDERED: HEPARIN SODIUM,PORCINE 5,000 UNIT/ML 1 ML VIAL IV ONE (17:57)
[2017-07-17] MEDS ORDERED: HEPARIN SODIUM,PORCINE 5,000 UNIT/ML 1 ML VIAL IV PRN (17:57)
[2017-07-17] MEDS ORDERED: HEPARIN SODIUM,PORCINE/D5W PMX 25,000 UNIT in DEXTROSE/WATER 1 500ML.BAG IV SCH (18:00)
[2017-07-17 18:19] LABS: Anisocytosis Slight; Basophils % (A) 0 %; CH 22.1; Eosinophils # (A) 0.2 k/uL (0-0.7); Eosinophils % (A) 3 %; HDW 3.31; Hypochromasia Marked; Luc % (Auto) 3; Lymphocytes # (A) 1.9 k/uL (1.0-4.8); Lymphocytes % (A) 25 %; MCH 23.2 pg (25.0-35.0); MCHC 30.2 g/dL (31.0-37.0); MCV 76.7 fL (80.0-100.0); Mean Platelet Volume 6.4; Microcytosis Slight; Monocytes # (A) 0.6 k/uL (0-1.0); Monocytes % (A) 8 %; Neutrophils # (A) 4.6 k/uL (1.3-7.7); Neutrophils % (A) 61 %; RBC 4.31 m/uL (3.80-5.40); RDW 17.5 % (11.5-15.5); WBC 7.5 k/uL (3.8-10.6); WBC (Perox) 7.94
[2017-07-17 18:29] LABS: Anion Gap 7 mmol/L; Blood Urea Nitrogen 4 mg/dL (7-17); Carbon Dioxide 25 mmol/L (22-30); Chloride 105 mmol/L (98-107); Glucose 93 mg/dL (74-99); Non-African American GFR(MDRD) >60 (>60 ml/min/1.73 sqM); Potassium 4.5 mmol/L (3.5-5.1); Sodium 137 mmol/L (137-145)
[2017-07-17 18:37] LABS: INR 0.9 (<1.2); Partial Thromboplastin Time 22.1 sec (22.0-30.0); Prothrombin Time 9.7 sec (9.0-12.0)
[2017-07-17] MEDS ORDERED: HYDROmorphone 1 MG/ML 1 ML SYRINGE IVP STA (20:45)
[2017-07-17 21:01] VITALS: BP 122/67; PULSE 99; RESP 18; TEMP 98.1
== END 2017-07-17 21:05 | disposition other institution (70) ==
LOC: EC 15:17
DX: S96.911A Strain of unspecified muscle and tendon at ankle and foot level, right foot, initial encounter (principal); T86.821 Skin graft (allograft) (autograft) failure; I77.1 Stricture of artery; M31.9 Necrotizing vasculopathy, unspecified; J45.909 Unspecified asthma, uncomplicated; M19.90 Unspecified osteoarthritis, unspecified site; F32.9 Major depressive disorder, single episode, unspecified; F41.9 Anxiety disorder, unspecified; F17.200 Nicotine dependence, unspecified, uncomplicated; Z79.01 Long term (current) use of anticoagulants; Z86.718 Personal history of other venous thrombosis and embolism; Z79.891 Long term (current) use of opiate analgesic; Z79.899 Other long term (current) drug therapy; Z88.6 Allergy status to analgesic agent; Z88.8 Allergy status to other drugs, medicaments and biological substances
CPT/HCPCS: 36415; 80048; 85025; 85610; 85730; 93971; 99285; 96365; 96366 ×2; 96376 ×2; 96375; J1644 ×2; J1170

== ENCOUNTER 2018-03-25 19:05 | Inpatient (IN) | payer MEDICARE, OTHER ==
[2018-03-25] MEDS ORDERED: MORPHINE SULFATE 4 MG/ML SYRINGE IVP STA (19:46)
[2018-03-25] MEDS ORDERED: VANCOMYCIN IV PER PHARMACY 1 EACH MISC MISCELLANE PRN (19:46)
[2018-03-25] MEDS ORDERED: NITROGLYCERIN SL TABS 0.4 MG TAB SUBLINGUAL PRN (19:46)
[2018-03-25] MEDS ORDERED: SODIUM CHLORIDE 0.9% 1,000 ML IV STA (19:46)
[2018-03-25] MEDS ORDERED: AMPICILLIN-SULBACTAM 3 GM in SODIUM CHLORIDE 0.9% 100 ML IVPB STA (19:51)
[2018-03-25] MEDS ORDERED: VANCOMYCIN 1,000 MG in SODIUM CHLORIDE 0.9% 250 ML IVPB STA (20:01)
--- NOTE | 2018-03-25 20:09 | ED ---
General Adult HPI - General Chief complaint: Extremity Problem,Nontraumatic Stated complaint: big toe infection Time Seen by Provider: 03/25/18 19:27 Source: patient, RN notes reviewed, old records reviewed Mode of arrival: ambulatory Limitations: no limitations - History of Present Illness Initial comments: This is a 47-year-old female the ER for evaluation. Patient was essay for evaluation regards to right toe turning color, right toe black right great toe black. Patient does have history of left leg". Patient has severe vascular disease with recent vascular surgery. Patient states she no longer wants to be seen in [place], would like to be seen at this hospital. Patient denies any fevers or cough congestion is complaining of right - Related Data Home Medications Medication Instructions Recorded Confirmed Alendronate Sodium [Fosamax] 10 mg PO TH 09/06/16 12/11/17 Clopidogrel Bisulfate [Plavix] 75 mg PO DAILY 09/06/16 12/11/17 Cyclobenzaprine [Flexeril] 10 mg PO TID PRN 09/06/16 12/11/17 Enoxaparin [Lovenox] 80 mg SQ BID 09/06/16 12/11/17 HYDROmorphone HCL [Dilaudid] 8 mg PO Q8HR PRN 09/06/16 12/11/17 Morphine Sulfate [Rebeca] 100 mg PO BID 09/06/16 12/11/17 Oxybutynin Chloride [Ditropan] 5 mg PO TID 09/06/16 12/11/17 Sucralfate [Carafate] 1 gm PO BID 09/06/16 12/11/17 Albuterol Sulfate [Ventolin HFA] 1 - 2 puff INHALATION RT-Q6H PRN 04/26/1712/11 Amitriptyline HCl [Elavil] 25 mg PO HS 04/26/17 12/11/17 Dextroamphetamine/Amphetamine 30 mg PO BID 04/26/17 12/11/17 [Adderall] Famotidine [Pepcid] 20 mg PO DAILY 04/26/17 12/11/17 Zolpidem Tartrate [Ambien] 10 mg PO HS PRN 07/10/17 12/11/17 Aspirin 81 mg PO DAILY 10/11/17 12/11/17 Previous Rx's Medication Instructions Recorded Docusate [Colace] 100 mg PO BID PRN #30 cap 07/12/17 Nicotine 14Mg/24Hr Patch [Habitrol] 1 patch TRANSDERM DAILY #30 patch 07/12/17 Allergies Allergy/AdvReac Type Severity Reaction Status Date / Time ibuprofen Allergy Unknown Verified 03/25/18 19:26 trazodone Allergy Chest Pain Verified 03/25/18 19:26 Review of Systems ROS Statement: Those systems with pertinent positive or pertinent negative responses have been documented in the HPI. ROS Other: All systems not noted in ROS Statement are negative. Past Medical History Past Medical History: Asthma, CVA/TIA, Deep Vein Thrombosis (DVT), Osteoarthritis (OA), Pulmonary Embolus (PE) Additional Past Medical History / Comment(s): sticky platelet syndrome, bronchitis, History of Any Multi-Drug Resistant Organisms: None Reported Past Surgical History: Cholecystectomy, Coronary Bypass/CABG Additional Past Surgical History / Comment(s): BKA, left lower leg, aortic bypass right leg, right leg fasciotomy. Past Anesthesia/Blood Transfusion Reactions: No Reported Reaction Past Psychological History: Anxiety, Depression Smoking Status: Never smoker Past Alcohol Use History: None Reported Past Drug Use History: None Reported - Past Family History Mother Additional Family Medical History / Comment(s): MS, legally blind, cataracts Father Additional Family Medical History / Comment(s): Was younger when he General Exam - General Exam Comments Initial Comments: Right big toe dry gangrene Limitations: no limitations General appearance: alert, in no apparent distress Head exam: Present: atraumatic, normocephalic, normal inspection Eye exam: Present: normal appearance, PERRL, EOMI. Absent: scleral icterus, conjunctival injection, periorbital swelling ENT exam: Present: normal exam, mucous membranes moist Neck exam: Present: normal inspection. Absent: tenderness, meningismus, lymphadenopathy Respiratory exam: Present: normal lung sounds bilaterally. Absent: respiratory distress, wheezes, rales, rhonchi, stridor Cardiovascular Exam: Present: regular rate, normal rhythm, normal heart sounds. Absent: systolic murmur, diastolic murmur, rubs, gallop, clicks GI/Abdominal exam: Present: soft, normal bowel sounds. Absent: distended, tenderness, guarding, rebound, rigid Extremities exam: Present: normal inspection, full ROM, normal capillary refill. Absent: tenderness, pedal edema, joint swelling, calf tenderness Back exam: Present: normal inspection Neurological exam: Present: alert, oriented X3, CN II-XII intact Psychiatric exam: Present: normal affect, normal mood Skin exam: Present: warm, dry, intact, normal color. Absent: rash Course Vital Signs 03/25/18 19:18 Temperature 97.8 F Pulse Rate 66 Respiratory 16 Rate Blood Pressure 87/54 O2 Sat by Pulse 100 Oximetry Medical Decision Making - Medical Decision Making Plan I female the ER for evaluation of right great toe pain and turning color, black, right toe dry gangrene, will admit for antibiotics and vascular surgery to see - Radiology Data Radiology results: report reviewed (X-ray foot negative), image reviewed Disposition Clinical Impression: Gangrene of right foot Disposition: ADMITTED IP TO THIS HOSP Condition: Fair Referrals: Nonstaff,Physician [Primary Care Provider] - 1-2 days
[2018-03-25] MEDS ORDERED: ONDANSETRON 4 MG/2 ML VIAL IVP PRN (21:07)
[2018-03-25] MEDS ORDERED: HYDROcodone/APAP 5-325MG 1 EACH TAB PO STA (21:07)
[2018-03-25] MEDS ORDERED: HYDROcodone/APAP 5-325MG 1 EACH TAB PO PRN (21:07)
[2018-03-25] MEDS ORDERED: CEPHALEXIN 500 MG CAP PO STA (21:07)
[2018-03-25] MEDS ORDERED: AMOXIC-POT CLAV 875-125MG 1 EACH TAB PO STA (21:34)
[2018-03-25] MEDS ORDERED: CYCLOBENZAPRINE 10 MG TAB PO PRN (22:35)
[2018-03-25] MEDS ORDERED: ZOLPIDEM 10 MG TAB PO PRN (22:35)
[2018-03-25] MEDS ORDERED: MORPHINE SULFATE 100 MG PO SCH (22:45)
[2018-03-25] MEDS ORDERED: ENOXAPARIN 80 MG/0.8 ML SYRINGE SQ SCH (22:45)
[2018-03-25] MEDS ORDERED: AMITRIPTYLINE HCL 25 MG TAB PO SCH (22:45)
[2018-03-25] MEDS ORDERED: OXYBUTYNIN CHLORIDE 5 MG TAB PO SCH (22:45)
[2018-03-25] MEDS ORDERED: NON-FORMULARY DRUG (Dextroamphetamine/Amphetamine [Adderall] 30 MG) PO SCH (22:45)
[2018-03-25] MEDS ORDERED: NICOTINE 14MG/24HR PATCH TRANSDERM SCH (22:45)
[2018-03-25] MEDS: MORPHINE SULFATE 4 MG/ML SYRINGE IV SCH ×2 (22:46→23:48)
[2018-03-25] MEDS ORDERED: MORPHINE SULFATE ER 100 MG TABLET PO SCH (23:03)
[2018-03-25] MEDS: MORPHINE SULFATE ER 100 MG TABLET PO SCH (23:31)
[2018-03-26] MEDS ORDERED: AMPICILLIN-SULBACTAM 3 GM in SODIUM CHLORIDE 0.9% 100 ML IVPB SCH ×2
[2018-03-26] MEDS: MORPHINE SULFATE 4 MG/ML SYRINGE IV SCH ×2 (01:15→07:34)
[2018-03-26] MEDS: HYDROmorphone 4 MG TABLET PO PRN ×2 (02:26→14:19)
[2018-03-26 07:38] VITALS: PULSE 97
[2018-03-26] MEDS ORDERED: CLOPIDOGREL 75 MG TAB PO SCH (09:00)
[2018-03-26] MEDS ORDERED: FAMOTIDINE 20 MG TAB PO SCH (09:00)
[2018-03-26] MEDS ORDERED: AMOXIC-POT CLAV 875-125MG 1 EACH TAB PO SCH (09:00)
[2018-03-26] MEDS ORDERED: ASPIRIN 81 MG PO SCH (09:00)
[2018-03-26] MEDS ORDERED: CEPHALEXIN 500 MG CAP PO SCH ×2 (09:00)
[2018-03-26] MEDS ORDERED: ASPIRIN 325 MG TAB PO SCH (09:00)
[2018-03-26] MEDS: MORPHINE SULFATE ER 100 MG TABLET PO SCH ×2 (09:04→09:28)
[2018-03-26 10:52] VITALS: BMI 17.4
--- NOTE | 2018-03-26 14:37 | CONS ---
CONSULTATION This is a 47-year-old -[place] female. She came to the emergency room with right foot big toe gangrene changes. The patient has been to this hospital before for similar problem. She has multiple vascular surgery done at [facility] by Dr. Ruiz and Dr. Back. The patient had a left BK amputation done for vascular procedure in the past. She has history of CVA in the past, history of deep vein thrombosis in the past, history of pulmonary embolism in the past. She also has sticky platelet syndrome. SURGICAL HISTORY: Patient had multiple vascular procedures performed at [facility]. The patient also had left BK amputation done at [facility]. The patient has history of cholecystectomy, coronary artery bypass, and CABG done in the past. The patient was seen in her room. Her neck is supple. Chest is few crackles. First and second sounds present. Abdomen is soft. Has a midline abdominal incisional scar. The patient also has bilateral groin incision scar from the previous vascular surgery. The patient has a long large wound on his right lower extremity from the fasciotomy, which is chronic in nature. She has a right foot big toe gangrene and the patient's femoral pulses are not palpable bilateral. The patient has no Doppler signal for the post tibial dorsal pedis on the right foot. PLAN: I have discussed with the patient. She had two complicated vascular procedure done at another institution and since patient has a chronic wound to the right lower extremity and new gangrene changes noted in the right foot big toe, she should be going to tertiary center. We will try to contact her primary vascular surgeon, Dr. Back and Dr. Ruiz for further transfer to their service. I will discuss with Dr. Camarillo who was on his service for medical issues. MMODL / IJN: [id number] /
[2018-03-26] MEDS ORDERED: LIDOCAINE 2% INJ 20 MG/ML SQ ONE (14:42)
[2018-03-26] MEDS ORDERED: IOPAMIDOL-370 50ML BTL INJ ONE (15:18)
[2018-03-26 16:09] VITALS: BP 108/73; RESP 16; TEMP 97.9
--- NOTE | 2018-03-26 18:52 | HP ---
HISTORY AND PHYSICAL DATE OF ADMISSION: 03/25/2018 DATE OF SERVICE: 03/26/2018 PRESENTING COMPLAINT: Gangrene of the right big toe and foot. HISTORY OF PRESENTING COMPLAINT: This is a 47-year-old patient who follows with Dr. Resendez. The patient has a rather extensive medical history. Patient's chronic stable medical conditions include COPD, osteoarthritis, sticky platelet syndrome, depression, coronary artery disease. Patient also has an extensive history of peripheral artery disease, has had multiple procedures done at [facility] by Dr. Valladares, vascular surgeon, including aortic bypass in the right leg, right leg fasciotomy and left below-knee arthroplasty. Patient presents with worsening gangrene of the right foot, increasing pain. No obvious fever. No chills. Patient is already chronically on Lovenox and aspirin. Vascular Surgery Dr. Gardiner was consulted. Patient stopped smoking about 3 months ago. REVIEW OF SYSTEMS: CONSTITUTIONAL: Tired. HEENT: None. RESPIRATORY: Occasional wheezing, shortness of breath. CARDIOVASCULAR: None. GASTROINTESTINAL: None. GENITOURINARY: None. MUSCULOSKELETAL: Pain in multiple joints, including the right foot. DERMATOLOGICAL: As above. LYMPHATICS: None. PSYCHIATRY: Mild anxiety. NEUROLOGICAL: Some numbness and tingling in the feet. PAST MEDICAL HISTORY: 1. Stroke. 2. DVT. 3. Pulmonary embolism. 4. Osteoarthritis. 5. Sticky platelet syndrome. 6. Peripheral artery disease. 7. Coronary artery disease. PAST SURGICAL HISTORY: 1. Cholecystectomy. 2. Coronary artery bypass. 3. Left below-knee arthroplasty. 4. Left lower leg, aortic bypass. 5. Right leg fasciotomy. PSYCH HISTORY: Anxiety and depression. SOCIAL HISTORY: Patient lives in an apartment with the restaurant team member and mother lives in the next apartment. Has a cane, leg prosthesis. Patient was smoking about half a pack a day for about 25 years; stopped a few months ago. Denies alcohol. FAMILY HISTORY: Multiple sclerosis. HOME MEDICATIONS: 1. Rebeca 100 mg p.o. b.i.d. 2. Dilaudid 8 mg q.8 p.r.n. 3. Carafate 1 gram p.o. b.i.d. 4. Ditropan 5 mg p.o. t.i.d. 5. Nicotine 14 mg patch. 6. Pepcid 20 mg p.o. daily. 7. Lovenox 80 mg subcutaneously b.i.d. 8. Colace 100 mg b.i.d. p.r.n. 9. Flexeril 10 mg p.o. t.i.d. p.r.n. 10.Plavix 75 mg p.o. daily. 11.Aspirin 81 mg p.o. daily. 12.Elavil 25 mg at bedtime. 13.Fosamax 10 mg p.o. on . 14.Ventolin HFA 1 or 2 puffs q.6 p.r.n. ALLERGIES: IBUPROFEN and TRAZODONE. PHYSICAL EXAMINATION: VITAL SIGNS ON PRESENTATION: Temperature 97.8, pulse 66, respiration 16, blood pressure 100/66, pulse ox 100% on room air. GENERAL APPEARANCE: Thin build; BMI 17.5. Lying in bed, not in distress. EYES: Pupils equal. Conjunctivae normal. HEENT: External appearance of nose and ears normal. Oral cavity normal. NECK: JVD not raised. Mass not palpable. RESPIRATORY: Effort normal. LUNGS: Diminished breath sounds. CARDIOVASCULAR: First and second sounds normal. No edema. ABDOMEN: Soft, nontender. Liver and spleen not palpable. LYMPHATIC: No lymph node palpable in neck or axillae. PSYCHIATRY: Alert and oriented x3. Mood and affect normal. NEUROLOGICAL: Pupils equal. Cranial nerves grossly intact. Power and sensation decreased distally. EXTREMITIES: Patient has dry gangrene of the right big toe and extending proximally. Patient also has some dressing on the right lower extremity. ASSESSMENT: 1. Acute gangrene of the right big toe area with severe peripheral artery disease with multiple prior interventions and poor circulation. 2. Severe peripheral artery disease with multiple interventions. 3. Primary osteoarthritis. 4. Chronic pulmonary embolism. 5. Sticky platelet syndrome. 6. Anxiety and depression not otherwise specified. 7. Coronary artery disease. 8. Mild protein-calorie malnutrition. Patient has a BMI of 17.5 with decreased muscle mass. PLAN: Home medications are resumed, including her chronic pain medications. Patient to be maintained on Lovenox. Vascular Surgery Dr. Gardiner was consulted. The patient may be better served at [place], where she has had previous surgeries. The patient does want to salvage her toe, but I highly doubt, given the way it looks, if it is salvageable, especially in the setting of very poor circulation. Care was discussed in detail with the patient. MMODL / IJN: [id number] /
--- NOTE | 2018-03-31 09:10 | CDI ---
Last Revision, October 2017 Documentation Clarification Form Date: 03/31/18 From: Lidya Ann Phone: If you have a question regarding this query, please contact Lara Peres at [phone] between 8am and 5pm. Admit Date: 03/25/2018 7:46:00 PM Patient Name: Nel Linares Visit Number: [id number] Discharge Date: 03/26/18 ATTENTION: The Clinical Documentation Specialists (CDI) and [facility] Coding Staff appreciate your assistance in clarifying documentation. Please respond to the clarification below the line at the bottom and electronically sign. The CDI & [facility] Coding staff will review the response and follow-up if needed. Please note: Queries are made part of the Legal Health Record. If you have any questions, please contact the author of this message via ITS. Dr. Brayan Camarillo Peripheral aretery disease is documented in the H&P. History/Risk Factors: Patient has a history of sticky platelet syndrome, DVT, PE and CAD. Clinical Indicators: Gangrene Treatment: Patient is on Plavix, Lovenox and aspirin In your professional opinion, can the type of peripheral artery disease be further specified? In your professional opinion, in order to capture the severity of condition, can you please clarify if the above clinical indicators and treatment signify if there were any associated conditions? Atherosclerosis of extremities Occlusive Due to embolism Due to thrombosis Occlusive Peripheral angiopathy Other (specify): Unable to determine unable to determine MTDD
--- NOTE | 2018-04-01 06:56 | DS ---
DISCHARGE SUMMARY DATE OF ADMISSION: 03/25/2018. DATE OF DISCHARGE/LEFT AGAINST MEDICAL ADVICE: 03/26/2018. FINAL DIAGNOSES: 1. Acute gangrene of the right big toe with severe peripheral artery disease with multiple prior interventions and poor circulation. 2. Severe peripheral artery disease with multiple interventions. 3. Primary osteoarthritis. 4. Chronic pulmonary embolism. 5. Sticky platelets syndrome. 6. Anxiety and depression not otherwise specified. 7. Coronary artery disease. 8. Mild protein-calorie malnutrition BMI 17.5. CONSULTATIONS: Dr. Gardiner. HOSPITAL COURSE: This is a patient who follows with Dr. Resendez, has had multiple procedures done at [facility] by Dr. Marie. Vascular surgeon. More details in my H and P. Dr. Gardiner was consulted because of gangrene right toe. He decided to transfer the patient back there. The patient decided to go to a different hospital and left AGAINST MEDICAL ADVICE. Please refer to my physical examination of the patient earlier in the day. MMODL / IJN: [id number] /
--- NOTE | 2018-04-01 21:48 | CDI ---
Last Revision, October 2017 Documentation Clarification Form Date: 04/01/18 From: Lidya Ann Phone: If you have a question regarding this query, please contact Lara Peres at [phone] between 8am and 5pm. Admit Date: 03/25/2018 7:46:00 PM Patient Name: Nel Linaers Visit Number: [id number] Discharge Date: 03/26/18 ATTENTION: The Clinical Documentation Specialists (CDI) and [facility] Coding Staff appreciate your assistance in clarifying documentation. Please respond to the clarification below the line at the bottom and electronically sign. The CDI & [facility] Coding staff will review the response and follow-up if needed. Please note: Queries are made part of the Legal Health Record. If you have any questions, please contact the author of this message via ITS. Dr. Brayan Camarillo Thank you for signing your previous query. Please document a response before signing this query. Peripheral aretery disease is documented in the H&P. History/Risk Factors: Patient has a history of sticky platelet syndrome, DVT, PE and CAD. Clinical Indicators: Gangrene Treatment: Patient is on Plavix, Lovenox and aspirin In your professional opinion, can the type of peripheral artery disease be further specified? In your professional opinion, in order to capture the severity of condition, can you please clarify if the above clinical indicators and treatment signify if there were any associated conditions? Atherosclerosis of extremities Occlusive Due to embolism Due to thrombosis Occlusive Peripheral angiopathy Other (specify): Unable to determine unable to determine MTDD
--- NOTE | 2018-04-14 15:25 | IR ---
PICC LINE PLACEMENT: HISTORY: Infection requiring long-term antibiotic therapy PROCEDURE: Ultrasound and fluoroscopic guidance of PICC line placement. COMPLICATIONS: None ANESTHESIA: 1. 1% Lidocaine locally. FINDINGS/TECHNIQUE: The procedure was explained to the patient. The risks, complications, benefits and alternatives were discussed and any questions were answered. Informed consent was obtained. The patient was placed supine on the fluoroscopic table and prepped and draped in the usual sterile fas ion. Utilizing a 21 gauge needle and sonographic and fluoroscopic guidance, access in the vein was achieved and there is placement of a 0.018 guidewire. The vein is patent. A 4-F sheath was placed o teressa the guidewire. The guidewire and dilator were removed and a 4-F. PICC line was placed through th e sheath with the tip at the level of the SVC. The sheath was removed, the catheter was flushed and sutured into position. The patient was stable throughout the procedure and remained stable upon disc harge from the Department of Radiology. The vein puncture was patent under ultrasound. A tom scale image was obtained to document patency of the vein punctured. All elements of the maximal barrier technique were utilized. FLUOROSCOPY TIME: 5.9 minutes, one image submitted. IMPRESSION: Successful PICC line placement under ultrasound and fluoroscopic guidance.
== END 2018-03-26 17:15 | disposition left against medical advice (07) | DRG 300 ==
LOC: EC 19:05 → 3SUR 19:46
PROVIDERS: ADMIT Hospitalist; ATTEND Hospitalist
PROC: 02HV33Z Insertion of Infusion Device into Superior Vena Cava, Percutaneous Approach (ICD-10-PCS; principal; 2018-03-26 11:40)
DX: I96 Gangrene, not elsewhere classified (principal); I73.9 Peripheral vascular disease, unspecified; E44.1 Mild protein-calorie malnutrition; I27.82 Chronic pulmonary embolism; Z68.1 Body mass index [BMI] 19.9 or less, adult; F32.9 Major depressive disorder, single episode, unspecified; F41.9 Anxiety disorder, unspecified; I25.10 Atherosclerotic heart disease of native coronary artery without angina pectoris; J44.9 Chronic obstructive pulmonary disease, unspecified; D69.1 Qualitative platelet defects; G89.29 Other chronic pain; M19.91 Primary osteoarthritis, unspecified site; Z79.02 Long term (current) use of antithrombotics/antiplatelets; Z79.82 Long term (current) use of aspirin; Z79.83 Long term (current) use of bisphosphonates; Z79.899 Other long term (current) drug therapy; Z88.6 Allergy status to analgesic agent; Z88.8 Allergy status to other drugs, medicaments and biological substances; Z95.1 Presence of aortocoronary bypass graft; Z79.2 Long term (current) use of antibiotics; Z90.49 Acquired absence of other specified parts of digestive tract; Z87.891 Personal history of nicotine dependence; Z86.73 Personal history of transient ischemic attack (TIA), and cerebral infarction without residual deficits; Z86.718 Personal history of other venous thrombosis and embolism; Z89.512 Acquired absence of left leg below knee; Z82.0 Family history of epilepsy and other diseases of the nervous system
CPT/HCPCS: 0; 36569; 76937; 77001; 93005; 99285

== ENCOUNTER 2018-07-01 21:48 | Emergency (ER) | payer MEDICARE, OTHER ==
[2018-07-01] MEDS ORDERED: SODIUM CHLORIDE 0.9% 1,000 ML IV STA (23:04)
[2018-07-01] MEDS ORDERED: ONDANSETRON 4 MG/2 ML VIAL IVP STA (23:04)
[2018-07-01] MEDS ORDERED: MORPHINE SULFATE 4 MG/ML SYRINGE IV STA (23:04)
--- NOTE | 2018-07-01 23:20 | ED ---
General Adult HPI - General Source: patient, RN notes reviewed Mode of arrival: wheelchair Limitations: no limitations <Chavez Blanca - Last Filed: 07/02/18 02:29> <Hannah Villalba - Last Filed: 07/02/18 08:53> - General Chief complaint: Abdominal Pain Stated complaint: right side pain Time Seen by Provider: 07/01/18 22:57 - History of Present Illness Initial comments: Patient is a 48-year-old female with a significant past medical history for sticky platelets syndrome, presenting to the emergency room today with a chief complaint of right sided abdominal pain. Patient states that she began having symptoms that started yesterday. She states it is a constant pain. Patient describes it as sharp. Patient states she's not had a bowel movement since pain began yesterday. Patient does admit to a few episodes of nausea and vomiting. Patient denies any other complaints or symptoms. Patient denies any recent fever, chills, shortness of breath, chest pain, back pain, numbness or tingling, dysuria or hematuria, constipation or diarrhea, headaches or visual changes, or any other complaints. (Chavez Blanca) - Related Data Home Medications Medication Instructions Recorded Confirmed Alendronate Sodium [Fosamax] 10 mg PO TH 09/06/16 07/01/18 Clopidogrel Bisulfate [Plavix] 75 mg PO DAILY 09/06/16 07/01/18 Cyclobenzaprine [Flexeril] 10 mg PO TID PRN 09/06/16 07/01/18 Enoxaparin [Lovenox] 80 mg SQ BID 09/06/16 07/01/18 HYDROmorphone HCL [Dilaudid] 8 mg PO Q8HR PRN 09/06/16 07/01/18 Morphine Sulfate [Rebeca] 100 mg PO BID 09/06/16 07/01/18 Oxybutynin Chloride [Ditropan] 5 mg PO TID 09/06/16 07/01/18 Sucralfate [Carafate] 1 gm PO BID 09/06/16 07/01/18 Albuterol Sulfate [Ventolin HFA] 1 - 2 puff INHALATION RT-Q6H PRN 04/26/1707/01 Amitriptyline HCl [Elavil] 25 mg PO HS 04/26/17 07/01/18 Famotidine [Pepcid] 20 mg PO DAILY 04/26/17 07/01/18 Aspirin 81 mg PO DAILY 10/11/17 07/01/18 Mirtazapine [Remeron] 30 mg PO HS PRN 07/01/18 07/01/18 Previous Rx's Medication Instructions Recorded Docusate [Colace] 100 mg PO BID PRN #30 cap 07/12/17 Allergies Allergy/AdvReac Type Severity Reaction Status Date / Time ibuprofen Allergy Unknown Verified 07/01/18 22:48 trazodone Allergy Chest Pain Verified 07/01/18 22:48 Review of Systems ROS Other: All systems not noted in ROS Statement are negative. <Chavez Blanca - Last Filed: 07/02/18 02:29> ROS Other: All systems not noted in ROS Statement are negative. <Hannah Villalba - Last Filed: 07/02/18 08:53> ROS Statement: Those systems with pertinent positive or pertinent negative responses have been documented in the HPI. Past Medical History Past Medical History: Asthma, CVA/TIA, Deep Vein Thrombosis (DVT), Osteoarthritis (OA), Pulmonary Embolus (PE) Additional Past Medical History / Comment(s): sticky platelet syndrome, bronchitis, anx/depression, falls History of Any Multi-Drug Resistant Organisms: None Reported Past Surgical History: Cholecystectomy, Coronary Bypass/CABG Additional Past Surgical History / Comment(s): ltBKA, left lower leg, aortic bypass right leg, right leg fasciotomy.pt stated had another vascular sx after the fasciotomy at [facility] unclear as to exactly what was done Past Anesthesia/Blood Transfusion Reactions: No Reported Reaction Past Psychological History: Anxiety, Depression Smoking Status: Former smoker Past Alcohol Use History: None Reported Past Drug Use History: None Reported - Past Family History Mother Additional Family Medical History / Comment(s): MS, legally blind, cataracts Father Additional Family Medical History / Comment(s): Was younger when he , car accident <Chavez Blanca - Last Filed: 07/02/18 02:29> General Exam Limitations: no limitations <Chavez Blanca - Last Filed: 07/02/18 02:29> <Hannah Villalba P - Last Filed: 07/02/18 08:53> - General Exam Comments Initial Comments: General: The patient is awake and alert, cachectic appearance. Eye: Pupils are equal, round and reactive to light, extra-ocular movements are intact. No nystagmus. There is normal conjunctiva bilaterally. No signs of icterus. Ears, nose, mouth and throat: There are moist mucous membranes and no oral lesions. Neck: The neck is supple, there is no tenderness or JVD. Cardiovascular: There is a regular rate and rhythm. No murmur, rub or gallop is appreciated. Respiratory: Lungs are clear to auscultation, respirations are non-labored, breath sounds are equal. No wheezes, stridor, rales, or rhonchi. Gastrointestinal: Mild tenderness right side of the abdomen. No rebound, guarding or CVA tenderness. Musculoskeletal: Normal ROM, no tenderness. Strength 5/5. Sensation intact. Pulses equal bilaterally 2+. Neurological: A&O x 3. CN II-XII intact, There are no obvious motor or sensory deficits. Coordination appears grossly intact. Speech is normal. Skin: Skin is warm and dry and no rashes or lesions are noted. Psychiatric: Cooperative, appropriate mood & affect, normal judgment. (Chavez Blanca) Vital Signs 07/01/18 07/02/18 07/02/18 22:36 02:10 03:30 Temperature 97.9 F Pulse Rate 92 Respiratory 18 17 17 Rate Blood Pressure 109/77 O2 Sat by Pulse 100 Oximetry 07/02/18 04:06 Temperature 98.9 F Pulse Rate 75 Respiratory 16 Rate Blood Pressure 98/85 O2 Sat by Pulse 98 Oximetry Medical Decision Making - Lab Data Result diagrams: 07/02/18 00:40 07/02/18 00:40 <Chavez Blanca - Last Filed: 07/02/18 02:29> - Lab Data Result diagrams: 07/02/18 00:40 07/02/18 00:40 <Hannah Villalba - Last Filed: 07/02/18 08:53> - Medical Decision Making 0110: Patient's blood work has been reviewed. 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 Patchy infarct in the right kidney. 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 There is some collateral arterial flow demonstrated. No free air. No evidence of bowel function. No evidence for intestinal infarct. These results were discussed with the patient in detail. Patient has had vascular surgery performed 3 [facility]. They will be contacted and patient transferred. Patient started on high-dose heparin. 0215: Case was discussed with Dr. James at [facility] who will accept transfer. Patient sees vascular surgeon Dr. Chinchilla out of this hospital and will be transferred for right renal artery infarct and common iliac artery occlusions. (Chavez Blanca) I was available for consultation in the emergency department. The history and physical exam were done by the midlevel provider. I was consulted for this patient's care. I reviewed the case with the midlevel provider and based on their presentation of the patient, I agree with the assessment, medical decision making and plan of care as documented. (Hannah Villalba) - Lab Data Lab Results 07/02/18 07/02/18 07/02/18 Range/Units 00:40 00:40 00:40 WBC 7.5 (3.8-10.6) k/uL RBC 3.84 (3.80-5.40) m/uL Hgb 10.7 L (11.4-16.0) gm/dL Hct 34.5 (34.0-46.0) % MCV 89.9 (80.0-100.0) fL MCH 27.9 (25.0-35.0) pg MCHC 31.1 (31.0-37.0) g/dL RDW 15.3 (11.5-15.5) % Plt Count 418 (150-450) k/uL Neutrophils % 87 % Lymphocytes % 8 % Monocytes % 4 % Eosinophils % 1 % Basophils % 0 % Neutrophils # 6.5 (1.3-7.7) k/uL Lymphocytes # 0.6 L (1.0-4.8) k/uL Monocytes # 0.3 (0-1.0) k/uL Eosinophils # 0.1 (0-0.7) k/uL Basophils # 0.0 (0-0.2) k/uL Hypochromasia Slight PT (9.0-12.0) sec INR (<1.2) APTT (22.0-30.0) sec Sodium 137 (137-145) mmol/L Potassium 3.4 L (3.5-5.1) mmol/L Chloride 98 (98-107) mmol/L Carbon Dioxide 33 H (22-30) mmol/L Anion Gap 6 mmol/L BUN 17 (7-17) mg/dL Creatinine 1.00 (0.52-1.04) mg/dL Est GFR (CKD-EPI)AfAm 76 (>60 ml/min/1.73 sqM) Est GFR (CKD-EPI)NonAf 66 (>60 ml/min/1.73 sqM) Glucose 88 (74-99) mg/dL Plasma Lactic Acid Faisal 1.2 (0.7-2.0) mmol/L Calcium 8.2 L (8.4-10.2) mg/dL Total Bilirubin 0.6 (0.2-1.3) mg/dL AST 28 (14-36) U/L ALT 32 (9-52) U/L Alkaline Phosphatase 204 H (38-126) U/L Total Protein 6.3 (6.3-8.2) g/dL Albumin 2.5 L (3.5-5.0) g/dL Amylase (30-110) U/L Lipase 16 L (23-300) U/L 07/02/18 07/02/18 Range/Units 00:40 00:40 WBC (3.8-10.6) k/uL RBC (3.80-5.40) m/uL Hgb (11.4-16.0) gm/dL Hct (34.0-46.0) % MCV (80.0-100.0) fL MCH (25.0-35.0) pg MCHC (31.0-37.0) g/dL RDW (11.5-15.5) % Plt Count (150-450) k/uL Neutrophils % % Lymphocytes % % Monocytes % % Eosinophils % % Basophils % % Neutrophils # (1.3-7.7) k/uL Lymphocytes # (1.0-4.8) k/uL Monocytes # (0-1.0) k/uL Eosinophils # (0-0.7) k/uL Basophils # (0-0.2) k/uL Hypochromasia PT 10.9 (9.0-12.0) sec INR 1.1 (<1.2) APTT 26.0 (22.0-30.0) sec Sodium (137-145) mmol/L Potassium (3.5-5.1) mmol/L Chloride (98-107) mmol/L Carbon Dioxide (22-30) mmol/L Anion Gap mmol/L BUN (7-17) mg/dL Creatinine (0.52-1.04) mg/dL Est GFR (CKD-EPI)AfAm (>60 ml/min/1.73 sqM) Est GFR (CKD-EPI)NonAf (>60 ml/min/1.73 sqM) Glucose (74-99) mg/dL Plasma Lactic Acid Faisal (0.7-2.0) mmol/L Calcium (8.4-10.2) mg/dL Total Bilirubin (0.2-1.3) mg/dL AST (14-36) U/L ALT (9-52) U/L Alkaline Phosphatase (38-126) U/L Total Protein (6.3-8.2) g/dL Albumin (3.5-5.0) g/dL Amylase 33 (30-110) U/L Lipase (23-300) U/L Disposition Is patient prescribed a controlled substance at d/c from ED?: No Time of Disposition: 02:32 (Transferred by EMS to [facility]) - Out of Hospital Transfer - Req. 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
[2018-07-02 00:56] LABS: Basophils % (A) 0 %; Eosinophils # (A) 0.1 k/uL (0-0.7); Eosinophils % (A) 1 %; HCT 34.5 % (34.0-46.0); HGB 10.7 gm/dL (11.4-16.0); Hypochromasia Slight; Lymphocytes # (A) 0.6 k/uL (1.0-4.8); Lymphocytes % (A) 8 %; MCH 27.9 pg (25.0-35.0); MCHC 31.1 g/dL (31.0-37.0); MCV 89.9 fL (80.0-100.0); Mean Platelet Volume 6.5; Monocytes # (A) 0.3 k/uL (0-1.0); Monocytes % (A) 4 %; Neutrophils # (A) 6.5 k/uL (1.3-7.7); Neutrophils % (A) 87 %; Platelet Count 418 k/uL (150-450); RBC 3.84 m/uL (3.80-5.40); RDW 15.3 % (11.5-15.5); WBC 7.5 k/uL (3.8-10.6)
[2018-07-02 01:08] LABS: INR 1.1 (<1.2); Prothrombin Time 10.9 sec (9.0-12.0)
[2018-07-02 01:09] LABS: Albumin 2.5 g/dL (3.5-5.0); Calcium 8.2 mg/dL (8.4-10.2); Potassium 3.4 mmol/L (3.5-5.1); Total Bilirubin 0.6 mg/dL (0.2-1.3); Total Protein 6.3 g/dL (6.3-8.2)
--- NOTE | 2018-07-02 01:15 | CT ---
EXAMINATION TYPE: CT abdomen pelvis w con DATE OF EXAM: 07/02/2018 COMPARISON: 12/12/2017 HISTORY: No prior, right sided abd pain today CT DLP: 325.90 mGycm Automated exposure control for dose reduction was used. TECHNIQUE: Helical acquisition of images was performed from the lung bases through the pelvis. CONTRAST: Performed without Oral Contrast and with IV Contrast, patient injected with 80 mL of Isovue 300. FINDINGS: Lung bases are clear. There is no pleural effusion. Heart size is normal. Liver shows no focal defect. Spleen appears normal. There is no pancreatic mass. There are apparent m ultiple surgical clips around the stomach. There is extensive thrombus in the abdominal aorta below t he origin of the superior mesenteric artery. There is arterial flow to the left kidney. There is sign ificant decreased enhancement of the right kidney suggestive of significant compromise of the right r enal artery. Proximal right renal artery does not appear opacified. There is no contrast in the iliac arteries. There appears to be some collateral vessels from the pancreatic and gastric arteries recon stituting the internal iliac arteries to some extent. I see no flow in the external iliac arteries. T here is femoral-femoral artery bypass graft that is not opacified. There is no evidence of pneumoperitoneum. I see no evidence of a bowel obstruction. IMPRESSION: THERE IS EXTENSIVE ARTERIAL THROMBOSIS SEEN BELOW THE origin of the superior mesenteric artery. There is a patchy infarct in the right kidney. This appears new compared to old exam. There is complete oc clusion of the common iliac arteries. Occlusion of left common iliac artery is a change compared to o ld CT scan of 12/12/2017. There is some collateral arterial flow demonstrated. No free air. No evidence of a bowel obstruction. I do not see evidence of intestinal infarct.
[2018-07-02] MEDS ORDERED: HEPARIN SOD,PORK IN 0.45% NACL 25,000 UNIT in 0.45% NACL 1 500ML.BAG IV SCH (01:45)
[2018-07-02] MEDS: HEPARIN SODIUM,PORCINE 5,000 UNIT/ML 1 ML VIAL IV STA ×2 (02:33→03:59)
[2018-07-02] MEDS: MORPHINE SULFATE 4 MG/ML SYRINGE IV STA ×2 (02:34→04:02)
[2018-07-02] MEDS ORDERED: MORPHINE SULFATE 4 MG/ML SYRINGE IM STA (03:38)
[2018-07-02 04:11] VITALS: BP 98/85; PULSE 75; RESP 16; TEMP 98.9
== END 2018-07-02 04:24 | disposition short-term general hospital (02) ==
LOC: EC 21:48
DX: N28.0 Ischemia and infarction of kidney (principal); I74.5 Embolism and thrombosis of iliac artery; K55.069 Acute infarction of intestine, part and extent unspecified; R64 Cachexia; Z68.1 Body mass index [BMI] 19.9 or less, adult; J45.909 Unspecified asthma, uncomplicated; D69.1 Qualitative platelet defects; M19.90 Unspecified osteoarthritis, unspecified site; F32.9 Major depressive disorder, single episode, unspecified; F41.9 Anxiety disorder, unspecified; Z87.891 Personal history of nicotine dependence; Z79.01 Long term (current) use of anticoagulants; Z79.02 Long term (current) use of antithrombotics/antiplatelets; Z79.82 Long term (current) use of aspirin; Z79.891 Long term (current) use of opiate analgesic; Z79.899 Other long term (current) drug therapy; Z88.5 Allergy status to narcotic agent; Z88.6 Allergy status to analgesic agent; Z86.73 Personal history of transient ischemic attack (TIA), and cerebral infarction without residual deficits; Z86.718 Personal history of other venous thrombosis and embolism; Z86.711 Personal history of pulmonary embolism; Z95.1 Presence of aortocoronary bypass graft; Z90.49 Acquired absence of other specified parts of digestive tract; R11.2 Nausea with vomiting, unspecified
CPT/HCPCS: 36415; 80053; 82150; 83605; 83690; 85025; 85610; 85730; 74177; 99285; 96374; 96375 ×2; 96376; 96361; 96372; J2270; J1644 ×2; J2405; Q9967

== ENCOUNTER 2018-07-31 21:56 | Inpatient (IN) | payer MEDICARE, OTHER ==
[2018-07-31] MEDS ORDERED: SODIUM CHLORIDE 0.9% 1,000 ML IV STA (22:21)
[2018-07-31] MEDS ORDERED: ONDANSETRON 4 MG/2 ML VIAL IVP STA (22:21)
[2018-07-31] MEDS ORDERED: HYDROmorphone 1 MG/ML 1 ML SYRINGE IVP STA (22:21)
--- NOTE | 2018-07-31 22:36 | ED ---
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 She states is severe achy in nature. Just complains some numbness to the right hand but she was noted be hyperventilating upon arrival. She was apparently seen at this facility July 01 of this year with similar complaints and transferred to [facility] to see a vascular surgeon she has seen in the past. 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 with some collateral arterial flow demonstrated (Mark Anthony Caballero) - Related Data Home Medications Medication Instructions Recorded Confirmed Alendronate Sodium [Fosamax] 10 mg PO TH 09/06/16 07/01/18 Clopidogrel Bisulfate [Plavix] 75 mg PO DAILY 09/06/16 07/01/18 Cyclobenzaprine [Flexeril] 10 mg PO TID PRN 09/06/16 07/01/18 Enoxaparin [Lovenox] 80 mg SQ BID 09/06/16 07/01/18 HYDROmorphone HCL [Dilaudid] 8 mg PO Q8HR PRN 09/06/16 07/01/18 Morphine Sulfate [Rebeca] 100 mg PO BID 09/06/16 07/01/18 Oxybutynin Chloride [Ditropan] 5 mg PO TID 09/06/16 07/01/18 Sucralfate [Carafate] 1 gm PO BID 09/06/16 07/01/18 Albuterol Sulfate [Ventolin HFA] 1 - 2 puff INHALATION RT-Q6H PRN 04/26/1707/01 Amitriptyline HCl [Elavil] 25 mg PO HS 04/26/17 07/01/18 Famotidine [Pepcid] 20 mg PO DAILY 04/26/17 07/01/18 Aspirin 81 mg PO DAILY 10/11/17 07/01/18 Mirtazapine [Remeron] 30 mg PO HS PRN 07/01/18 07/01/18 Previous Rx's Medication Instructions Recorded Docusate [Colace] 100 mg PO BID PRN #30 cap 07/12/17 Allergies Allergy/AdvReac Type Severity Reaction Status Date / Time ibuprofen Allergy Unknown Verified 07/31/18 22:01 trazodone Allergy Chest Pain Verified 07/31/18 22:01 Review of Systems ROS Other: All systems not noted in ROS Statement are negative. <Mark Anthony Caballero - Last Filed: 08/01/18 00:12> ROS Other: All systems not noted in ROS Statement are negative. <Art Ramos - Last Filed: 08/01/18 07:56> ROS Statement: Those systems with pertinent positive or pertinent negative responses have been documented in the HPI. Past Medical History Past Medical History: Asthma, CVA/TIA, Deep Vein Thrombosis (DVT), Osteoarthritis (OA), Pulmonary Embolus (PE) Additional Past Medical History / Comment(s): sticky platelet syndrome, bronchitis, anx/depression, falls History of Any Multi-Drug Resistant Organisms: None Reported Past Surgical History: Cholecystectomy, Coronary Bypass/CABG Additional Past Surgical History / Comment(s): ltBKA, left lower leg, aortic bypass right leg, right leg fasciotomy.pt stated had another vascular sx after the fasciotomy at [facility] unclear as to exactly what was done Past Anesthesia/Blood Transfusion Reactions: No Reported Reaction Past Psychological History: Anxiety, Depression Smoking Status: Former smoker Past Alcohol Use History: None Reported Past Drug Use History: None Reported - Past Family History Mother Additional Family Medical History / Comment(s): MS, legally blind, cataracts Father Additional Family Medical History / Comment(s): Was younger when he , car accident <Mark Anthony Caballero - Last Filed: 08/01/18 00:12> General Exam Limitations: no limitations General appearance: alert, anxious, in distress Head exam: Present: atraumatic, normocephalic, normal inspection Eye exam: Present: normal appearance, PERRL, EOMI. Absent: scleral icterus, conjunctival injection, periorbital swelling ENT exam: Present: mucous membranes dry Neck exam: Present: normal inspection. Absent: tenderness, meningismus, lymphadenopathy Respiratory exam: Present: normal lung sounds bilaterally. Absent: respiratory distress, wheezes, rales, rhonchi, stridor Cardiovascular Exam: Present: regular rate, normal rhythm, normal heart sounds. Absent: systolic murmur, diastolic murmur, rubs, gallop, clicks GI/Abdominal exam: Present: soft, tenderness (Right flank tenderness palpation) , normal bowel sounds. Absent: distended, guarding, rebound, rigid Extremities exam: Present: full ROM, normal capillary refill, other (Bilateral lower extremity amputations). Absent: tenderness, pedal edema, joint swelling, calf tenderness Back exam: Present: normal inspection, CVA tenderness (R) Neurological exam: Present: alert, oriented X3, CN II-XII intact Psychiatric exam: Present: normal affect, normal mood Skin exam: Present: warm, dry, intact, normal color. Absent: rash <Mark Anthony Caballero - Last Filed: 08/01/18 00:12> <Art Ramos - Last Filed: 08/01/18 07:56> - General Exam Comments Initial Comments: Is a well-developed asthenic appearing female who is awake alert and oriented 3 (Mark Anthony Caballero) Course <Mark Anthony Caballero - Last Filed: 08/01/18 00:12> <Art Ramos - Last Filed: 08/01/18 07:56> Vital Signs 07/31/18 08/01/18 08/01/18 21:59 00:13 02:00 Temperature 98 F Pulse Rate 104 H 98 79 Respiratory 18 20 20 Rate Blood Pressure 119/80 138/83 142/85 O2 Sat by Pulse 98 97 95 Oximetry 08/01/18 08/01/18 04:43 06:47 Temperature Pulse Rate 79 70 Respiratory 20 20 Rate Blood Pressure 158/90 153/92 O2 Sat by Pulse 99 98 Oximetry - Reevaluation(s) Reevaluation #1: 08/01/18 00:12 Patient's care will be endorsed to Dr. Ramos at shift change (Mark Anthony Caballero) Medical Decision Making <Mark Anthony Caballero - Last Filed: 08/01/18 00:12> - Lab Data Result diagrams: 07/31/18 02:35 07/31/18 02:35 <Art Ramos - Last Filed: 08/01/18 07:56> - Medical Decision Making I receive this patient as a sign out from Dr. Caballero. Nursing staff had come informed me after a number of attempts, that staff was not able to obtain labs. They also had lab manager lab attempt to draw the patient and were unsuccessful. I therefore performed a femoral draw under ultrasound guidance and successfully obtained 20 mL of blood for labs. No complications. Patient's workup does show that she appears to have acute kidney injury. She has gone from her baseline creatinine of 0.47 up to 1.14. Patient be admitted for IV fluids. (Art Ramos) - Lab Data Lab Results 07/31/18 07/31/18 08/01/18 Range/Units 02:35 02:35 02:35 WBC 13.5 H (3.8-10.6) k/uL RBC 2.99 L (3.80-5.40) m/uL Hgb 8.2 L (11.4-16.0) gm/dL Hct 26.0 L (34.0-46.0) % MCV 87.0 (80.0-100.0) fL MCH 27.5 (25.0-35.0) pg MCHC 31.7 (31.0-37.0) g/dL RDW 16.1 H (11.5-15.5) % Plt Count 359 (150-450) k/uL Neutrophils % 94 % Lymphocytes % 3 % Monocytes % 2 % Eosinophils % 0 % Basophils % 0 % Neutrophils # 12.6 H (1.3-7.7) k/uL Lymphocytes # 0.4 L (1.0-4.8) k/uL Monocytes # 0.3 (0-1.0) k/uL Eosinophils # 0.1 (0-0.7) k/uL Basophils # 0.0 (0-0.2) k/uL Hypochromasia Slight Anisocytosis Slight Sodium 133 L (137-145) mmol/L Potassium 3.3 L (3.5-5.1) mmol/L Chloride 97 L (98-107) mmol/L Carbon Dioxide 30 (22-30) mmol/L Anion Gap 6 mmol/L BUN 20 H (7-17) mg/dL Creatinine 1.19 H (0.52-1.04) mg/dL Est GFR (CKD-EPI)AfAm 62 (>60 ml/min/1.73 sqM) Est GFR (CKD-EPI)NonAf 53 (>60 ml/min/1.73 sqM) Glucose 95 (74-99) mg/dL Plasma Lactic Acid Faisal (0.7-2.0) mmol/L Calcium 7.7 L (8.4-10.2) mg/dL Total Bilirubin 0.4 (0.2-1.3) mg/dL AST 72 H (14-36) U/L ALT 44 (9-52) U/L Alkaline Phosphatase 158 H (38-126) U/L Total Protein 5.4 L (6.3-8.2) g/dL Albumin 2.1 L (3.5-5.0) g/dL Amylase 34 (30-110) U/L Lipase 41 (23-300) U/L Urine Color Urine Appearance (Clear) Urine pH (5.0-8.0) Ur Specific [place] (1.001-1.035) Urine Protein (Negative) Urine Glucose (UA) (Negative) Urine Ketones (Negative) Urine Blood (Negative) Urine Nitrite (Negative) Urine Bilirubin (Negative) Urine Urobilinogen (<2.0) mg/dL Ur Leukocyte Esterase (Negative) Urine RBC (0-5) /hpf Urine WBC (0-5) /hpf Hyaline Casts (0-2) /lpf Acetone, Qual Positive (Negative) 08/01/18 08/01/18 Range/Units 02:35 06:31 WBC (3.8-10.6) k/uL RBC (3.80-5.40) m/uL Hgb (11.4-16.0) gm/dL Hct (34.0-46.0) % MCV (80.0-100.0) fL MCH (25.0-35.0) pg MCHC (31.0-37.0) g/dL RDW (11.5-15.5) % Plt Count (150-450) k/uL Neutrophils % % Lymphocytes % % Monocytes % % Eosinophils % % Basophils % % Neutrophils # (1.3-7.7) k/uL Lymphocytes # (1.0-4.8) k/uL Monocytes # (0-1.0) k/uL Eosinophils # (0-0.7) k/uL Basophils # (0-0.2) k/uL Hypochromasia Anisocytosis Sodium (137-145) mmol/L Potassium (3.5-5.1) mmol/L Chloride (98-107) mmol/L Carbon Dioxide (22-30) mmol/L Anion Gap mmol/L BUN (7-17) mg/dL Creatinine (0.52-1.04) mg/dL Est GFR (CKD-EPI)AfAm (>60 ml/min/1.73 sqM) Est GFR (CKD-EPI)NonAf (>60 ml/min/1.73 sqM) Glucose (74-99) mg/dL Plasma Lactic Acid Faisal 1.4 (0.7-2.0) mmol/L Calcium (8.4-10.2) mg/dL Total Bilirubin (0.2-1.3) mg/dL AST (14-36) U/L ALT (9-52) U/L Alkaline Phosphatase (38-126) U/L Total Protein (6.3-8.2) g/dL Albumin (3.5-5.0) g/dL Amylase (30-110) U/L Lipase (23-300) U/L Urine Color Yellow Urine Appearance Clear (Clear) Urine pH 6.0 (5.0-8.0) Ur Specific [place] 1.018 (1.001-1.035) Urine Protein 1+ H (Negative) Urine Glucose (UA) Negative (Negative) Urine Ketones Negative (Negative) Urine Blood Negative (Negative) Urine Nitrite Negative (Negative) Urine Bilirubin Negative (Negative) Urine Urobilinogen 3.0 (<2.0) mg/dL Ur Leukocyte Esterase Negative (Negative) Urine RBC <1 (0-5) /hpf Urine WBC 1 (0-5) /hpf Hyaline Casts 1 (0-2) /lpf Acetone, Qual (Negative) Disposition <Mark Anthony Caballero - Last Filed: 08/01/18 00:12> <Art Ramos - Last Filed: 08/01/18 07:56> Clinical Impression: Flank pain, Acute kidney injury, Anemia Disposition: ADMITTED IP TO THIS [facility] Condition: Poor
[2018-08-01] MEDS ORDERED: HYDROmorphone 1 MG/ML 1 ML SYRINGE IVP STA (00:01)
--- NOTE | 2018-08-01 00:12 | XR ---
EXAMINATION TYPE: XR KUB DATE OF EXAM: 07/31/2018 11:55 PM CLINICAL HISTORY: Abdominal pain TECHNIQUE: Single supine KUB image of the abdomen is obtained. COMPARISON: None. FINDINGS: Supine view shows no sign of intestinal obstruction or pneumoperitoneum. There is left hip nailing. There are numerous surgical clips at the right hip joint. There are surgical clips on the ri ght side of the abdomen. There is no evidence of a mass. Bowel gas pattern is normal. IMPRESSION: Nonacute abdomen. Previous surgery.
[2018-08-01 02:50] LABS: Anisocytosis Slight; Basophils % (A) 0 %; Eosinophils # (A) 0.1 k/uL (0-0.7); Eosinophils % (A) 0 %; HGB 8.2 gm/dL (11.4-16.0); Hypochromasia Slight; Lymphocytes # (A) 0.4 k/uL (1.0-4.8); Lymphocytes % (A) 3 %; MCH 27.5 pg (25.0-35.0); MCHC 31.7 g/dL (31.0-37.0); Mean Platelet Volume 6.6; Monocytes # (A) 0.3 k/uL (0-1.0); Monocytes % (A) 2 %; Neutrophils # (A) 12.6 k/uL (1.3-7.7); Neutrophils % (A) 94 %; Platelet Count 359 k/uL (150-450); RBC 2.99 m/uL (3.80-5.40); RDW 16.1 % (11.5-15.5); WBC 13.5 k/uL (3.8-10.6)
[2018-08-01 03:06] LABS: Albumin 2.1 g/dL (3.5-5.0); Calcium 7.7 mg/dL (8.4-10.2); Potassium 3.3 mmol/L (3.5-5.1); Total Bilirubin 0.4 mg/dL (0.2-1.3); Total Protein 5.4 g/dL (6.3-8.2)
[2018-08-01] MEDS ORDERED: SODIUM CHLORIDE 0.9% 500 ML IV STA (05:36)
[2018-08-01] MEDS ORDERED: ONDANSETRON 4 MG/2 ML VIAL IVP PRN (06:58)
[2018-08-01] MEDS ORDERED: NALOXONE 0.4 MG/ML 1 ML VIAL IV PRN (06:58)
[2018-08-01 07:01] LABS: Appearance,Urine Clear (Clear); Bilirubin,Urine Negative (Negative); Blood,Urine Negative (Negative); Color,Urine Yellow; Glucose,Urine (UA) Negative (Negative); Hyaline Casts,Urine 1 /lpf (0-2); Ketones,Urine Negative (Negative); Leukocyte Esterase,Urine Negative (Negative); Nitrite,Urine Negative (Negative); Protein,Urine 1+ (Negative); RBC,Urine <1 /hpf (0-5); Specific Gravity,Urine 1.018 (1.001-1.035); WBC,Urine 1 /hpf (0-5)
[2018-08-01] MEDS ORDERED: POTASSIUM CHLORIDE ER 20 MEQ TAB.ER PO STA (07:56)
[2018-08-01] MEDS ORDERED: HEPARIN SODIUM,PORCINE 5,000 UNIT/ML 1 ML VIAL SQ SCH (09:00)
--- NOTE | 2018-08-01 09:53 | CT ---
EXAMINATION TYPE: CT abdomen pelvis wo con DATE OF EXAM: 08/01/2018 COMPARISON: Previous study dated 07/02/2018. HISTORY: Rt abd pain CT DLP: 245.7 mGycm Automated exposure control for dose reduction was used. FINDINGS: There is minimal atelectasis in the right middle lobe. There is no pleural or pericardial f luid. The heart is not enlarged. Within the abdomen, there is been previous gastric surgery. The liver is normal in size. The gallbladder is been removed. The spleen is unremarkable. The adrenal glands are poorly visualized due to a paucity of retroperitoneal fat. There is no hydronephrosis or nephrolithiasis. The patient's right renal infarct cannot be appreciate d on this study. The pancreas is not visualized. The bladder is unremarkable. The uterus and ovaries cannot be visualized. There is a femorofemoral crossover graft. There is a right-sided aortofemoral graft. There is degenerative disc disease and facet arthropathy in the lower lumbar spine. No bony destructi ve lesion is seen. There is a dynamic hip pinning of the left hip. Evaluation of the bowel is limited due to a paucity of fat and no contrast. IMPRESSION: 1. VERY LIMITED EXAMINATION DUE TO A POSTERIOR RETROPERITONEAL FAT AND NO CONTRAST. 2. POSTSURGICAL CHANGE. 3. MINIMAL ATELECTASIS, RIGHT MIDDLE LOBE. 4. NO EVIDENCE OF HYDRONEPHROSIS OR NEPHROLITHIASIS.
[2018-08-01] MEDS ORDERED: HYDROmorphone 1 MG/ML 1 ML SYRINGE IVP PRN (10:23)
[2018-08-01] MEDS: SODIUM CHLORIDE 0.9% 1,000 ML IV SCH ×2 (11:42→22:24)
--- NOTE | 2018-08-01 13:46 | P.HPIM ---
History of Present Illness H&P Date: 08/01/18 Chief Complaint: Abdominal pain The patient is a 48 yo F with the PMH of sticky platelet syndrome (dx 10 years ago), yolanda LE amputation (L BKA 5 years ago and R AKA 1 months ago), CVA, DVT, PE , infarct of kidney (Jun 2018), mesenteric artery thrombosis, CKD stage 3 presented to the ED for R flank pain. The pain started roughly 24 hours ago, stabbing in nature, 10/10, constant, w/ associated nausea but no vomiting. She notes that the pain is similar in nature to pain in Jun 2018 when she experienced the kidney infarct. She is otherwise denying fever, dysuria, hematuria, cough, chest pain, SO, abdominal pain, vomiting, diarrhea, constipation, recent travel, dizziness or sick contacts. The patient also endorsed unintentional 30 pounds weight loss in the past 2 months despite having a good apetite. 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 where the patient was previously following w/ vascular surgery (Dr Chinchilla) and her undergone multiple surgeries. The patient lives at home w/ her sister and is wheel-chair dependent. Review of Systems Pertinent positives and negatives as discussed in HPI, a complete review of systems was performed and all other systems are negative. Past Medical History Past Medical History: Asthma, CVA/TIA, Deep Vein Thrombosis (DVT), Osteoarthritis (OA), Pulmonary Embolus (PE) Additional Past Medical History / Comment(s): sticky platelet syndrome, bronchitis, anx/depression, falls History of Any Multi-Drug Resistant Organisms: None Reported Past Surgical History: Cholecystectomy, Coronary Bypass/CABG Additional Past Surgical History / Comment(s): ltBKA, left lower leg, aortic bypass right leg, right leg fasciotomy.pt stated had another vascular sx after the fasciotomy at [facility] unclear as to exactly what was done Rt BKA Past Anesthesia/Blood Transfusion Reactions: No Reported Reaction Past Psychological History: Anxiety, Depression Additional Psychological History / Comment(s): lives with sister Smoking Status: Former smoker Past Alcohol Use History: None Reported Additional Past Alcohol Use History / Comment(s): started smoking at age 22 and quit 2017 was smoking 1/2ppd Past Drug Use History: None Reported - Past Family History Mother Additional Family Medical History / Comment(s): MS, legally blind, cataracts Father Additional Family Medical History / Comment(s): Was younger when he , car accident Medications and Allergies Home Medications Medication Instructions Recorded Confirmed Type Alendronate Sodium [Fosamax] 10 mg PO TH 09/06/16 07/01/18 History Clopidogrel Bisulfate [Plavix] 75 mg PO DAILY 09/06/16 07/01/18 History Cyclobenzaprine [Flexeril] 10 mg PO TID PRN 09/06/16 07/01/18 History Enoxaparin [Lovenox] 80 mg SQ BID 09/06/16 07/01/18 History HYDROmorphone HCL [Dilaudid] 8 mg PO Q8HR PRN 09/06/16 07/01/18 History Morphine Sulfate [Rebeca] 100 mg PO BID 09/06/16 07/01/18 History Oxybutynin Chloride [Ditropan] 5 mg PO TID 09/06/16 07/01/18 History Sucralfate [Carafate] 1 gm PO BID 09/06/16 07/01/18 History Albuterol Sulfate [Ventolin HFA] 1 - 2 puff INHALATION RT-Q6H PRN 04/26/1707/01 History Amitriptyline HCl [Elavil] 25 mg PO HS 04/26/17 07/01/18 History Famotidine [Pepcid] 20 mg PO DAILY 04/26/17 07/01/18 History Docusate [Colace] 100 mg PO BID PRN #30 cap 07/12/17 07/01/18 Rx Aspirin 81 mg PO DAILY 10/11/17 07/01/18 History Mirtazapine [Remeron] 30 mg PO HS PRN 07/01/18 07/01/18 History Allergies Allergy/AdvReac Type Severity Reaction Status Date / Time ibuprofen Allergy Unknown Verified 07/31/18 22:01 trazodone Allergy Chest Pain Verified 07/31/18 22:01 Physical Exam Vitals: Vital Signs Temp Pulse Pulse Resp BP BP Pulse Ox 08/01/18 10:24 97.3 F L 72 16 132/74 96 08/01/18 06:47 70 20 153/92 98 08/01/18 04:43 79 20 158/90 99 08/01/18 02:00 79 20 142/85 95 08/01/18 00:13 98 20 138/83 97 07/31/18 21:59 98 F 104 H 18 119/80 98 Intake and Output 07/31/18 08/01/18 08/01/18 22:59 06:59 14:59 Intake Total 700 Balance 700 Intake: Amount of Fluid Infused ( 700 ml) Other: Weight 40.37 kg General: [non toxic], [moderate distress due to pain, holding R side of her abdomen], [appears older than age], [cachectic] Derm: [no unusual rashes/lesions] [no unusual ecchymoses], [warm], [dry] Head: [atraumatic], [normocephalic], [symmetric] Eyes: [EOMI], [no lid lag], [anicteric sclera], [pupils equal round reactive to light] ENT: [Nose and ears atraumatic], [no thrush], [no pharyngeal erythema] Neck: [No thyromegaly], [no cervical lymphadenopathy], [trachea midline], [ supple] Mouth: [no lip lesion], [mucus membranes moist] Cardiovascular: [S1S2 reg], [no murmur], [no edema], [capillary refill less than 2 seconds] Lungs: [CTA bilateral], [no rhonchi, no rales] , [no accessory muscle use] Abdominal: [soft], [R flank tenderness], [mild guarding], [no appreciable organomegaly], [normal bowel sounds] Ext: [R AKA, L BKA w/ healed incisions], [no contractures], Neuro: [CN II-XI grossly intact], [light touch intact all 4 extremities], [ finger to nose within normal limits], Psych: [Alert], [oriented], [appropriate affect] Results CBC & Chem 7: 07/31/18 02:35 07/31/18 02:35 Labs: Abnormal Lab Results - Last 24 Hours (Table) 07/31/18 07/31/18 08/01/18 Range/Units 02:35 02:35 06:31 WBC 13.5 H (3.8-10.6) k/uL RBC 2.99 L (3.80-5.40) m/uL Hgb 8.2 L (11.4-16.0) gm/dL Hct 26.0 L (34.0-46.0) % RDW 16.1 H (11.5-15.5) % Neutrophils # 12.6 H (1.3-7.7) k/uL Lymphocytes # 0.4 L (1.0-4.8) k/uL Sodium 133 L (137-145) mmol/L Potassium 3.3 L (3.5-5.1) mmol/L Chloride 97 L (98-107) mmol/L BUN 20 H (7-17) mg/dL Creatinine 1.19 H (0.52-1.04) mg/dL Calcium 7.7 L (8.4-10.2) mg/dL AST 72 H (14-36) U/L Alkaline Phosphatase 158 H (38-126) U/L Total Protein 5.4 L (6.3-8.2) g/dL Albumin 2.1 L (3.5-5.0) g/dL Urine Protein 1+ H (Negative) Assessment and Plan Plan: R flank pain, suspicious for infarct in setting of hypercoagulability disorder ( Sticky platelet syndrome) and similar presentation -CT abd w/o contrast unremarkable for stones or hydronephrosis -Will obtain CT angiogram of abdomen to evaluate for infarct -Pain control w/ dilaudid prn -C/w IVF 100 cc/hr -C/w Aspirin, Plavix, and Lovenox 80 mg SQ q12h -If CTA positive for infarct/thrombosis, will transfer patient to [facility] Leukocytosis -Likely reactive, will monitor for signs of infection. Will hold off on Abx at this time. Severe protein calorie malnutrition -Dietary supplements Normocytic anemia -Likely due to chronic inflammation -Monitor for now Hyponatremia, hypovolemic -Will give IVFs NS Hypokalemia -Will replace accordingly DVT//GI prophylaxis -Lovenox -No indication for GI prophylaxis The patient is admitted with an anticipated greater than 2 midnight stay for evaluation of R flank pain, suspected kidney infarct. Surrogate decision-maker: Mother CODE STATUS:Full-code Discussed with: Patient, mother Anticipated discharge date: 08/04/[address]: Home A total of 75 minutes was spent on the care of this complex patient more than 50 % of the time was spent in counseling and care coordination.
[2018-08-01] MEDS: HYDROmorphone 1 MG/ML 1 ML SYRINGE IVP PRN ×4 (13:54→22:36)
[2018-08-01] MEDS ORDERED: MIRTAZAPINE 15 MG TAB PO PRN (18:10)
[2018-08-01] MEDS ORDERED: CYCLOBENZAPRINE 10 MG TAB PO PRN (18:10)
[2018-08-01] MEDS ORDERED: ENOXAPARIN 80 MG/0.8 ML SYRINGE SQ SCH (21:00)
[2018-08-01] MEDS: OXYBUTYNIN CHLORIDE 5 MG TAB PO SCH (21:10)
[2018-08-01] MEDS: AMITRIPTYLINE HCL 25 MG TAB PO SCH (21:10)
[2018-08-01] MEDS: ENOXAPARIN 40 MG/0.4 ML SYRINGE SQ SCH (21:10)
[2018-08-01 23:16] VITALS: RESP 16
[2018-08-02] MEDS: HYDROmorphone 1 MG/ML 1 ML SYRINGE IVP PRN ×6 (01:53→19:55)
[2018-08-02] MEDS: OXYBUTYNIN CHLORIDE 5 MG TAB PO SCH ×3 (07:39→22:39)
[2018-08-02 10:21] LABS: Albumin 1.8 g/dL (3.5-5.0); Calcium 7.4 mg/dL (8.4-10.2); Potassium 3.6 mmol/L (3.5-5.1); Total Bilirubin 0.3 mg/dL (0.2-1.3); Total Protein 4.8 g/dL (6.3-8.2)
[2018-08-02] MEDS: ENOXAPARIN 40 MG/0.4 ML SYRINGE SQ SCH ×2 (11:16→20:08)
[2018-08-02] MEDS: CLOPIDOGREL 75 MG TAB PO SCH (11:31)
[2018-08-02] MEDS: MULTIVITAMINS, THERA 1 EACH TAB PO SCH (11:32)
[2018-08-02] MEDS: ASPIRIN 81 MG PO SCH (11:32)
[2018-08-02] MEDS: SODIUM CHLORIDE 0.9% 1,000 ML IV SCH (11:37)
[2018-08-02 14:02] LABS: Anisocytosis Slight; Basophils % (A) 0 %; Eosinophils % (A) 0 %; HCT 33.7 % (34.0-46.0); HGB 10.6 gm/dL (11.4-16.0); Hypochromasia Moderate; Lymphocytes # (A) 0.6 k/uL (1.0-4.8); Lymphocytes % (A) 3 %; MCHC 31.3 g/dL (31.0-37.0); MCV 89.4 fL (80.0-100.0); Mean Platelet Volume 6.6; Monocytes # (A) 0.3 k/uL (0-1.0); Monocytes % (A) 2 %; Neutrophils % (A) 95 %; Platelet Count 357 k/uL (150-450); RBC 3.77 m/uL (3.80-5.40); RDW 16.3 % (11.5-15.5)
[2018-08-02] MEDS ORDERED: HEPARIN SOD,PORK IN 0.45% NACL 25,000 UNIT in 0.45% NACL 1 500ML.BAG IV SCH (15:00)
[2018-08-02 15:04] LABS: Appearance,Urine Clear (Clear); Bilirubin,Urine Negative (Negative); Blood,Urine Small (Negative); Color,Urine Yellow; Glucose,Urine (UA) Negative (Negative); Ketones,Urine Negative (Negative); Leukocyte Esterase,Urine Small (Negative); Nitrite,Urine Negative (Negative); Protein,Urine 2+ (Negative); RBC,Urine <1 /hpf (0-5); Specific Gravity,Urine 1.014 (1.001-1.035); Urobilinogen,Urine <2.0 mg/dL (<2.0); WBC,Urine 22 /hpf (0-5)
[2018-08-02 15:22] VITALS: BMI 14.8
[2018-08-02] MEDS: AMITRIPTYLINE HCL 25 MG TAB PO SCH (20:08)
[2018-08-03] MEDS: SODIUM CHLORIDE 0.9% 1,000 ML IV SCH ×2 (02:30→08:11)
[2018-08-03] MEDS: HYDROmorphone 1 MG/ML 1 ML SYRINGE IVP PRN ×4 (02:33→14:11)
--- NOTE | 2018-08-03 07:16 | P.PN ---
Subjective Progress Note Date: 08/02/18 Patient complaining of moderate to severe right flank pain radiating to the right CVA. Patient reports diminished appetite. Worsening kidney function overnight decreasing urine output Objective - Vital Signs Vital signs: Vital Signs Temp 96.8 F L 08/02/18 05:00 Pulse 53 L 08/02/18 05:00 Resp 16 08/02/18 05:00 BP 161/83 08/02/18 05:00 Pulse Ox 99 08/02/18 05:00 Intake & Output 08/01/18 08/02/18 08/02/18 18:59 06:59 18:59 Intake Total 1510 1290 Balance 1510 1290 Weight 40.37 kg Intake: Amount of Fluid Infused ( 700 ml) Intake, IV Titration 450 640 Amount Sodium Chloride 0.9% 1, 400 640 000 ml @ 80 mls/hr IV . [id number] [facility] Rx#:[id number] cefTRIAXone 1,000 mg In 50 Sodium Chloride 0.9% 50 ml @ 100 mls/hr IVPB ONCE STA Rx#:[id number] Oral 360 650 - Exam Constitutional: No acute distress, conversant, pleasant, appears older than stated age, appears malnourished Eyes: Anicteric sclerae, moist conjunctiva, no lid-lag, PERRLA ENMT: NC/AT,Oropharynx clear, no erythema, exudates Neck:Supple, FROM, no masses, or JVD, No carotid bruits; No thyromegaly Lungs: Clear to auscultation, Clear to percussion, Normal respiratory effort, no accessory muscle use Cardiovascular: Heart regular in rate and rhythm, No murmurs, gallops, or rubs no peripheral edema Abdominal: Right flank tenderness, no guarding, no rebound or rigidity, Normoactive bowel sounds No hepatomegaly, No splenomegaly, No palpable mass No abdominal wall hernia noted Skin: Normal temperature, tone, texture, turgor, No induration No subcutaneous nodules, No rash, lesions, No ulcers Extremities: R AKA, L BKA w/ healed incisions Psychiatric: Alert and oriented to person, place and time, Appropriate affect Intact judgement Neuro: Muscles Strength 5/5 in all 4 extremities, Sensation to light touch grossly present throughout, Cranial nerves II-XII grossly intact. No focal sensory deficits - Labs CBC & Chem 7: 08/03/18 07:29 08/03/18 07:29 Labs: Abnormal Lab Results - Last 24 Hours (Table) 08/02/18 08/02/18 08/02/18 Range/Units 09:58 13:46 14:34 WBC 20.0 H (3.8-10.6) k/uL RBC 3.77 L (3.80-5.40) m/uL Hgb 10.6 L (11.4-16.0) gm/dL Hct 33.7 L (34.0-46.0) % RDW 16.3 H (11.5-15.5) % Neutrophils # 19.0 H (1.3-7.7) k/uL Lymphocytes # 0.6 L (1.0-4.8) k/uL Sodium 135 L (137-145) mmol/L BUN 33 H (7-17) mg/dL Creatinine 2.07 H (0.52-1.04) mg/dL Glucose 69 L (74-99) mg/dL Calcium 7.4 L (8.4-10.2) mg/dL AST 81 H (14-36) U/L ALT 73 H (9-52) U/L Alkaline Phosphatase 133 H (38-126) U/L Total Protein 4.8 L (6.3-8.2) g/dL Albumin 1.8 L (3.5-5.0) g/dL Urine Protein 2+ H (Negative) Urine Blood Small H (Negative) Ur Leukocyte Esterase Small H (Negative) Urine WBC 22 H (0-5) /hpf Assessment and Plan Plan: R flank pain, suspicious for infarct in setting of hypercoagulability disorder ( Sticky platelet syndrome) and similar presentation -CT abd w/o contrast unremarkable for stones or hydronephrosis - Unable to obtain CT angiogram of abdomen to evaluate for infarct secondary to acute kidney injury with olihuria -Pain control w/ dilaudid prn -C/w IVF 100 cc/hr -C/w Aspirin, Plavix, and Lovenox 40 mg SQ q12h -Unable to be seen here by vascular surgery, we'll attempt transfer to [facility] Acute kidney injury with oliguria * Joyce catheter placed, approx 250 cc out ~ 0.3 cc/kk/kr * Creatinine up to 2 * Concern for renal infarct Leukocytosis -Likely reactive, will monitor for signs of infection. Will hold off on Abx at this time. Severe protein calorie malnutrition -Dietary supplements Normocytic anemia -Likely due to chronic inflammation -Monitor for now Hyponatremia, hypovolemic -Will give IVFs NS Hypokalemia -Will replace accordingly DVT//GI prophylaxis -Lovenox -No indication for GI prophylaxis
[2018-08-03] MEDS: ASPIRIN 81 MG PO SCH (08:10)
[2018-08-03] MEDS: MULTIVITAMINS, THERA 1 EACH TAB PO SCH (08:10)
[2018-08-03] MEDS: CLOPIDOGREL 75 MG TAB PO SCH (08:10)
[2018-08-03] MEDS: ENOXAPARIN 40 MG/0.4 ML SYRINGE SQ SCH (08:10)
[2018-08-03] MEDS: OXYBUTYNIN CHLORIDE 5 MG TAB PO SCH (08:10)
[2018-08-03 08:40] LABS: Anisocytosis Slight; Basophils % (A) 0 %; Eosinophils % (A) 0 %; Hypochromasia Moderate; Lymphocytes # (A) 0.5 k/uL (1.0-4.8); Lymphocytes % (A) 4 %; MCH 27.9 pg (25.0-35.0); MCHC 31.1 g/dL (31.0-37.0); MCV 89.8 fL (80.0-100.0); Mean Platelet Volume 6.8; Monocytes # (A) 0.5 k/uL (0-1.0); Monocytes % (A) 4 %; Neutrophils # (A) 12.2 k/uL (1.3-7.7); Neutrophils % (A) 92 %; Platelet Count 301 k/uL (150-450); RBC 2.89 m/uL (3.80-5.40); RDW 16.1 % (11.5-15.5); WBC 13.2 k/uL (3.8-10.6)
[2018-08-03 08:42] LABS: HGB 8.1 gm/dL (11.4-16.0)
[2018-08-03 09:08] LABS: Albumin 1.8 g/dL (3.5-5.0); Calcium 7.5 mg/dL (8.4-10.2); Potassium 3.7 mmol/L (3.5-5.1); Total Bilirubin 0.3 mg/dL (0.2-1.3); Total Protein 4.8 g/dL (6.3-8.2)
[2018-08-03 09:52] LABS: Glucose,Whole Blood 116 mg/dL (75-99)
--- NOTE | 2018-08-03 10:30 | P.PN ---
Subjective Progress Note Date: 08/03/18 Patient complaining of moderate to severe right flank pain radiating to the right CVA. Patient reports diminished appetite. Worsening kidney function overnight decreasing urine output Objective - Vital Signs Vital signs: Vital Signs Temp 98.2 F 08/03/18 05:00 Pulse 80 08/03/18 05:00 Resp 16 08/03/18 05:00 BP 169/83 08/03/18 05:00 Pulse Ox 100 08/03/18 05:00 Intake & Output 08/02/18 08/03/18 08/03/18 18:59 06:59 18:59 Intake Total 1590 Output Total 300 300 Balance -300 1290 Weight 40.37 kg Intake: Intake, IV Titration 640 Amount Sodium Chloride 0.9% 1, 640 000 ml @ 80 mls/hr IV . [id number] [facility] Rx#:[id number] Oral 950 Output: Urine 300 300 Uretheral (Joyce) 300 Other: Voiding Method Indwelling Catheter Indwelling Catheter Indwelling Catheter - Exam Constitutional: No acute distress, conversant, pleasant, appears older than stated age, appears malnourished Eyes: Anicteric sclerae, moist conjunctiva, no lid-lag, PERRLA ENMT: NC/AT,Oropharynx clear, no erythema, exudates Neck:Supple, FROM, no masses, or JVD, No carotid bruits; No thyromegaly Lungs: Clear to auscultation, Clear to percussion, Normal respiratory effort, no accessory muscle use Cardiovascular: Heart regular in rate and rhythm, No murmurs, gallops, or rubs no peripheral edema Abdominal: Right flank tenderness, no guarding, no rebound or rigidity, Normoactive bowel sounds No hepatomegaly, No splenomegaly, No palpable mass No abdominal wall hernia noted Skin: Normal temperature, tone, texture, turgor, No induration No subcutaneous nodules, No rash, lesions, No ulcers Extremities: R AKA, L BKA w/ healed incisions Psychiatric: Alert and oriented to person, place and time, Appropriate affect Intact judgement Neuro: Muscles Strength 5/5 in all 4 extremities, Sensation to light touch grossly present throughout, Cranial nerves II-XII grossly intact. No focal sensory deficits - Labs CBC & Chem 7: 08/03/18 07:29 08/03/18 07:29 Labs: Abnormal Lab Results - Last 24 Hours (Table) 08/02/18 08/02/18 08/03/18 Range/Units 13:46 14:34 07:29 WBC 20.0 H 13.2 H (3.8-10.6) k/uL RBC 3.77 L 2.89 L (3.80-5.40) m/uL Hgb 10.6 L 8.1 L D (11.4-16.0) gm/dL Hct 33.7 L 26.0 L (34.0-46.0) % RDW 16.3 H 16.1 H (11.5-15.5) % Neutrophils # 19.0 H 12.2 H (1.3-7.7) k/uL Lymphocytes # 0.6 L 0.5 L (1.0-4.8) k/uL Sodium (137-145) mmol/L BUN (7-17) mg/dL Creatinine (0.52-1.04) mg/dL Glucose (74-99) mg/dL POC Glucose (mg/dL) (75-99) mg/dL Calcium (8.4-10.2) mg/dL AST (14-36) U/L ALT (9-52) U/L Alkaline Phosphatase (38-126) U/L Total Protein (6.3-8.2) g/dL Albumin (3.5-5.0) g/dL Urine Protein 2+ H (Negative) Urine Blood Small H (Negative) Ur Leukocyte Esterase Small H (Negative) Urine WBC 22 H (0-5) /hpf 08/03/18 08/03/18 Range/Units 07:29 09:50 WBC (3.8-10.6) k/uL RBC (3.80-5.40) m/uL Hgb (11.4-16.0) gm/dL Hct (34.0-46.0) % RDW (11.5-15.5) % Neutrophils # (1.3-7.7) k/uL Lymphocytes # (1.0-4.8) k/uL Sodium 134 L (137-145) mmol/L BUN 38 H (7-17) mg/dL Creatinine 2.63 H (0.52-1.04) mg/dL Glucose 51 L (74-99) mg/dL POC Glucose (mg/dL) 116 H (75-99) mg/dL Calcium 7.5 L (8.4-10.2) mg/dL AST 53 H (14-36) U/L ALT 55 H (9-52) U/L Alkaline Phosphatase 161 H (38-126) U/L Total Protein 4.8 L (6.3-8.2) g/dL Albumin 1.8 L (3.5-5.0) g/dL Urine Protein (Negative) Urine Blood (Negative) Ur Leukocyte Esterase (Negative) Urine WBC (0-5) /hpf Microbiology - Last 24 Hours (Table) 08/02/18 14:34 Urine Culture - Preliminary Urine,Catheterized Assessment and Plan Plan: R flank pain, suspicious for infarct in setting of hypercoagulability disorder ( Sticky platelet syndrome) and similar presentation -CT abd w/o contrast unremarkable for stones or hydronephrosis - Unable to obtain CT angiogram of abdomen to evaluate for infarct secondary to acute kidney injury with oliguria * Previous 07/02/[address] abdomen and pelvis showed 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 * Patient was transferred to [facility] and reportedly had a BKA there during that hospitalization -Pain control w/ dilaudid prn -C/w IVF 100 cc/hr -C/w Aspirin, Plavix, and Lovenox 40 mg SQ q12h - Plan to consult Dr. Gardiner (vascular surgery) for further recommendation, we 'll attempt transfer to [facility] (her vascular surgeon Dr. See) Acute kidney injury with oliguria * Joyce catheter placed, approx 300 cc out in 8 hrs~ 0.9 cc/kd/hr * Creatinine up to 2.63 * Concern for renal infarct * Consult nephrology for further recommendations Leukocytosis * patient afebrile WBCs trending down from 20 to 13.2 * -Likely reactive, will monitor for signs of infection. Will hold off on Abx at this time. Severe protein calorie malnutrition/failure to thrive -Dietary supplements Normocytic anemia * possibly ACD , check iron studies -Likely due to chronic inflammation -Monitor for now Hg 8.1 Hyponatremia, hypovolemic -Will give IVFs NS Hypokalemia - resolved after beingreplaced DVT//GI prophylaxis -Lovenox -No indication for GI prophylaxis
--- NOTE | 2018-08-03 12:01 | P.NPCON ---
History of Present Illness - Reason for Consult acute renal failure - History of Present Illness Reason for consultation: Acute kidney injury History of present illness: Patient is a 48-year-old female seen in renal consultation for acute kidney injury. Her baseline creatinine is 1 and elevated at 2.63-7 admission. Patient presented to the hospital with right-sided abdominal pain radiating to her back. She had a CAT scan of the abdomen and pelvis done without contrast which revealed no evidence of renal infarct or hydronephrosis. Her pain has improved. She is a Joyce catheter in place. Urine output overnight was 300 mL. Oral intake is fair. No vomiting or diarrhea. Denies hematuria or dysuria. Denies regular use of NSAIDs. In December 2017 patient had a lower extremity CT done which revealed occlusion of the right common femoral artery and has undergone right above the knee amputation. Computed tomography scan from 07/02/2018 revealed extensive arterial thrombosis at the origin of SMA as well as a patchy infarct in the right kidney along with complete occlusion of the right iliac arteries and the left common iliac artery. Patient was transferred to [facility] and underwent left toes amputation. Vital signs are stable. General: The patient appeared well nourished and normally developed. HEENT: Head exam is unremarkable. Neck is without jugular venous distension. LUNGS: Lungs are clear to auscultation and percussion. Breath sounds decreased. HEART: Rate and Rhythm are regular. First and second heart sounds normal. No murmurs, rubs or gallops. ABDOMEN: Abdominal exam reveals normal bowel sounds. Non-tender and non- distended. No evidence of peritonitis. EXTREMITITES: No clubbing, cyanosis, or edema. Right [id number] amputation. Left toes amputation. Past Medical History Past Medical History: Asthma, CVA/TIA, Deep Vein Thrombosis (DVT), Osteoarthritis (OA), Pulmonary Embolus (PE) Additional Past Medical History / Comment(s): sticky platelet syndrome, bronchitis, anx/depression, falls History of Any Multi-Drug Resistant Organisms: None Reported Past Surgical History: Cholecystectomy, Coronary Bypass/CABG Additional Past Surgical History / Comment(s): ltBKA, left lower leg, aortic bypass right leg, right leg fasciotomy.pt stated had another vascular sx after the fasciotomy at [facility] unclear as to exactly what was done Rt BKA Past Anesthesia/Blood Transfusion Reactions: No Reported Reaction Past Psychological History: Anxiety, Depression Additional Psychological History / Comment(s): lives with sister Smoking Status: Former smoker Past Alcohol Use History: None Reported Additional Past Alcohol Use History / Comment(s): started smoking at age 22 and quit 2017 was smoking 1/2ppd Past Drug Use History: None Reported - Past Family History Mother Additional Family Medical History / Comment(s): MS, legally blind, cataracts Father Additional Family Medical History / Comment(s): Was younger when he , car accident Medications and Allergies Home Medications Medication Instructions Recorded Confirmed Type Alendronate Sodium [Fosamax] 10 mg PO TH 09/06/16 08/01/18 History Clopidogrel Bisulfate [Plavix] 75 mg PO DAILY 09/06/16 08/01/18 History Cyclobenzaprine [Flexeril] 10 mg PO TID PRN 09/06/16 08/01/18 History Enoxaparin [Lovenox] 80 mg SQ BID 09/06/16 08/01/18 History HYDROmorphone HCL [Dilaudid] 8 mg PO Q8HR PRN 09/06/16 08/01/18 History Morphine Sulfate [Rebeca] 100 mg PO BID 09/06/16 08/01/18 History Oxybutynin Chloride [Ditropan] 5 mg PO TID 09/06/16 08/01/18 History Sucralfate [Carafate] 1 gm PO BID 09/06/16 08/01/18 History Albuterol Sulfate [Ventolin HFA] 1 - 2 puff INHALATION RT-Q6H PRN 04/26/1708/01 History Amitriptyline HCl [Elavil] 25 mg PO HS 04/26/17 08/01/18 History Aspirin 81 mg PO DAILY 10/11/17 08/01/18 History Mirtazapine [Remeron] 30 mg PO HS PRN 07/01/18 08/01/18 History Acetaminophen Tab [Tylenol Tab] 650 mg PO Q4H PRN 08/01/18 08/01/18 History Ibuprofen [Motrin Ib] 200 mg PO Q8H PRN 08/01/18 08/01/18 History Multivitamins, Thera [Multivitamin 1 tab PO DAILY 08/01/18 08/01/18 History (formulary)] Polyethylene Glycol 3350 [Miralax] 17 gm PO DAILY PRN 08/01/18 08/01/18 History Allergies Allergy/AdvReac Type Severity Reaction Status Date / Time ibuprofen Allergy Unknown Verified 08/01/18 13:37 trazodone Allergy Chest Pain Verified 08/01/18 13:37 Physical Exam Vitals: Vital Signs Temp Pulse Resp BP Pulse Ox 08/03/18 05:00 98.2 F 80 16 169/83 100 08/02/18 23:50 16 08/02/18 21:00 98.4 F 60 16 126/75 90 L 08/02/18 16:31 98.9 F 61 16 148/80 99 Intake and Output 08/02/18 08/03/18 08/03/18 22:59 06:59 14:59 Intake Total 360 1230 Output Total 300 Balance 360 930 Intake: Intake, IV Titration 640 Amount Sodium Chloride 0.9% 1, 640 000 ml @ 80 mls/hr IV . [id number] [facility] Rx#:[id number] Oral 360 590 Output: Urine 300 Uretheral (Joyce) 300 Other: Voiding Method Indwelling Catheter Indwelling Catheter Indwelling Catheter Weight 40.37 kg Results - Lab Results Most recent lab results Calcium 7.5 mg/dL (8.4-10.2) L 08/03/18 07:29 08/03/18 07:29 08/03/18 07:29 Assessment and Plan Plan: Assessment: 1. Acute kidney injury secondary to ATN. No evidence of hydronephrosis noted on CAT scan. No evidence of renal infarct. However according to the notes she did have a right-sided renal infarct on the CAT scan in June 2018. Baseline creatinine is 1 and elevated at 2.63 today. 2. Right flank pain with concern for renal infarct. 3. 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 4. History of PE and DVT. 5. History of extensive arterial thrombosis with occlusion off right iliac arteries and left common iliac artery status post right [id number] amputation and left toes amputation. Plan: Continue normal saline at 80 mL an hour. Follow-up urine culture. Maintain anticoagulation. Dose of Lovenox will need to be adjusted if GFR stays below 30. Consider Coumadin as alternative. Check LDH. Follow-up iron studies. For more accurate diagnosis she will need a CAT scan with IV contrast or MRI with gadolinium which can further impair her renal function or lead to NSF. At this time it will be best to continue with anticoagulation. There are also plans to transfer her to [facility]. Maintain Joyce. Continue to monitor renal function and urine output. Discussed with primary team. Thank you for the consultation. I will continue to follow the patient with you during her hospital stay.
[2018-08-03 13:11] VITALS: BP 131/82; PULSE 119; TEMP 98.3
[2018-08-03 19:24] LABS: Iron Saturation 6.8 (12.00-45.00)
[2018-08-04] MEDS ORDERED: ENOXAPARIN 40 MG/0.4 ML SYRINGE SQ SCH (09:00)
--- NOTE | 2018-08-04 10:31 | P.DS ---
Providers Date of admission: 08/01/18 17:45 Expected date of discharge: 08/03/18 Attending physician: Porsha Savage MD Consults: 08/03/18 10:00 Consult Physician Urgent Consulting Provider: Alfonso Gardiner Consult Reason/Comments: h/o arterial thrombosis Do you want consulting provider notified?: Yes 08/03/18 10:08 Consult Physician Routine Consulting Provider: Christopher Handley Consult Reason/Comments: MOE Do you want consulting provider notified?: Yes Primary care physician: Garcia Resendez MD - Discharge Diagnosis(es) (1) Acute kidney injury Status: Acute (2) Flank pain Status: Acute (3) Sticky platelet syndrome Status: Acute (4) PVD (peripheral vascular disease) Status: Acute (5) Hypokalemia Status: Acute (6) History of blood clots Status: Acute Hospital Course: The patient is a 48-year-old female that was admitted with a history of peripheral vascular disease, extensive arterial thrombosis with occlusion of the right iliac artery and left, interactive artery status post right AK, 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 Patient was noted to be in acute kidney injury and was initially oliguric with her creatinine trending up to as high as 2.67 with previously documented baseline at 1. The patient's acute kidney injury with ATN prevented further workup with a CT abdomen and pelvis with contrast or MRI with gadolinium to further investigate her concern for kidney infarct. The patient was noted to have a pronounced leukocytosis and white count trending up to as high as 20, thought to be acute stress response as she remained afebrile and subsequently trended down to 13 without any administration of antibiotics. She was also noted to have a chronic normocytic anemia likely secondary to anemia of chronic disease, further workup with iron studies had been initiated prior to transfer. The patient was treated with therapeutic Lovenox initially at 40 mg subcu twice a day, later renally dosed at 40 mg subcu daily. Given the patient's overall poor prognosis and complicated medical history, with having her vascular surgeon at [facility], it was thought that transferring her there would be in the patient's best interest. Transfer was arranged to [facility] by case management with Dr. Ruiz accepting the patient for transfer. This transfer process took approximately 35 minutes See discharge med rec Discharge physical Constitutional: No acute distress, conversant, pleasant, appears older than stated age, appears malnourished Eyes: Anicteric sclerae, moist conjunctiva, no lid-lag, PERRLA ENMT: NC/AT,Oropharynx clear, no erythema, exudates Neck:Supple, FROM, no masses, or JVD, No carotid bruits; No thyromegaly Lungs: Clear to auscultation, Clear to percussion, Normal respiratory effort, no accessory muscle use Cardiovascular: Heart regular in rate and rhythm, No murmurs, gallops, or rubs no peripheral edema Abdominal: Right flank tenderness, no guarding, no rebound or rigidity, Normoactive bowel sounds No hepatomegaly, No splenomegaly, No palpable mass No abdominal wall hernia noted Skin: Normal temperature, tone, texture, turgor, No induration No subcutaneous nodules, No rash, lesions, No ulcers Extremities: R AKA, L BKA w/ healed incisions Psychiatric: Alert and oriented to person, place and time, Appropriate affect Intact judgement Neuro: Muscles Strength 5/5 in all 4 extremities, Sensation to light touch grossly present throughout, Cranial nerves II-XII grossly intact. No focal sensory deficits Patient Condition at Discharge: Poor Plan - Discharge Summary Discharge Rx Participant: Yes New Discharge Prescriptions: New Amitriptyline HCl [Elavil] 25 mg PO HS tab Aspirin 81 mg PO DAILY chew Clopidogrel [Plavix] 75 mg PO DAILY tab Cyclobenzaprine [Flexeril] 10 mg PO TID PRN tab PRN Reason: Muscle Spasm Enoxaparin [Lovenox] 40 mg SQ DAILY syringe Mirtazapine [Remeron] 30 mg PO HS PRN tab PRN Reason: Insomnia Ondansetron [Zofran] 4 mg IVP Q8HR PRN vial PRN Reason: Nausea And Vomiting Oxybutynin Chloride [Ditropan] 5 mg PO TID tab Continue HYDROmorphone HCL [Dilaudid] 8 mg PO Q8HR PRN PRN Reason: Pain Alendronate Sodium [Fosamax] 10 mg PO TH Sucralfate [Carafate] 1 gm PO BID Morphine Sulfate [Rebeca] 100 mg PO BID Albuterol Sulfate [Ventolin HFA] 1 - 2 puff INHALATION RT-Q6H PRN PRN Reason: Shortness Of Breath Polyethylene Glycol 3350 [Miralax] 17 gm PO DAILY PRN PRN Reason: Constipation Multivitamins, Thera [Multivitamin (formulary)] 1 tab PO DAILY Acetaminophen Tab [Tylenol] 650 mg PO Q4H PRN PRN Reason: Pain Or Fever > 100.5 Discontinued Oxybutynin Chloride [Ditropan] 5 mg PO TID Cyclobenzaprine [Flexeril] 10 mg PO TID PRN PRN Reason: Muscle Spasm Enoxaparin [Lovenox] 80 mg SQ BID Clopidogrel Bisulfate [Plavix] 75 mg PO DAILY Amitriptyline HCl [Elavil] 25 mg PO HS Aspirin 81 mg PO DAILY Mirtazapine [Remeron] 30 mg PO HS PRN PRN Reason: Insomnia Ibuprofen [Motrin Ib] 200 mg PO Q8H PRN PRN Reason: Pain Discharge Medication List Alendronate Sodium [Fosamax] 10 mg PO TH 09/06/16 [History] HYDROmorphone HCL [Dilaudid] 8 mg PO Q8HR PRN 09/06/16 [History] Morphine Sulfate [Rebeca] 100 mg PO BID 09/06/16 [History] Sucralfate [Carafate] 1 gm PO BID 09/06/16 [History] Albuterol Sulfate [Ventolin HFA] 1 - 2 puff INHALATION RT-Q6H PRN 04/26/17 [ History] Acetaminophen Tab [Tylenol] 650 mg PO Q4H PRN 08/01/18 [History] Multivitamins, Thera [Multivitamin (formulary)] 1 tab PO DAILY 08/01/18 [History ] Polyethylene Glycol 3350 [Miralax] 17 gm PO DAILY PRN 08/01/18 [History] Amitriptyline HCl [Elavil] 25 mg PO HS tab 08/03/18 [Rx] Aspirin 81 mg PO DAILY chew 08/03/18 [Rx] Clopidogrel [Plavix] 75 mg PO DAILY tab 08/03/18 [Rx] Cyclobenzaprine [Flexeril] 10 mg PO TID PRN tab 08/03/18 [Rx] Enoxaparin [Lovenox] 40 mg SQ DAILY syringe 08/03/18 [Rx] Mirtazapine [Remeron] 30 mg PO HS PRN tab 08/03/18 [Rx] Ondansetron [Zofran] 4 mg IVP Q8HR PRN vial 08/03/18 [Rx] Oxybutynin Chloride [Ditropan] 5 mg PO TID tab 08/03/18 [Rx] Follow up Appointment(s)/Referral(s): Garcia Resendez MD [Primary Care Provider] - 1-2 days Discharge Disposition: OTHER INSTITUTION NOT DEFINED
== END 2018-08-03 15:28 | disposition short-term general hospital (02) | DRG 682 ==
LOC: EC 21:56 → 5MS5E 08-01 07:09 → OBSVTOIN 08-01 17:45
PROVIDERS: ADMIT Internal Medicine; ATTEND Internal Medicine
PROC: 05HY33Z Insertion of Infusion Device into Upper Vein, Percutaneous Approach (ICD-10-PCS; principal; 2018-08-02 13:30)
DX: N17.0 Acute kidney failure with tubular necrosis (principal); E43 Unspecified severe protein-calorie malnutrition; I26.99 Other pulmonary embolism without acute cor pulmonale; D68.59 Other primary thrombophilia; Z68.1 Body mass index [BMI] 19.9 or less, adult; E87.1 Hypo-osmolality and hyponatremia; N28.0 Ischemia and infarction of kidney; D63.8 Anemia in other chronic diseases classified elsewhere; D72.829 Elevated white blood cell count, unspecified; E86.1 Hypovolemia; E87.6 Hypokalemia; F32.9 Major depressive disorder, single episode, unspecified; F41.9 Anxiety disorder, unspecified; Z89.611 Acquired absence of right leg above knee; J45.909 Unspecified asthma, uncomplicated; Z89.512 Acquired absence of left leg below knee; N18.3 Chronic kidney disease, stage 3 (moderate); Z79.02 Long term (current) use of antithrombotics/antiplatelets; Z79.82 Long term (current) use of aspirin; Z79.83 Long term (current) use of bisphosphonates; Z82.1 Family history of blindness and visual loss; Z86.711 Personal history of pulmonary embolism; Z86.718 Personal history of other venous thrombosis and embolism; Z86.73 Personal history of transient ischemic attack (TIA), and cerebral infarction without residual deficits; Z87.891 Personal history of nicotine dependence; Z95.1 Presence of aortocoronary bypass graft; I25.10 Atherosclerotic heart disease of native coronary artery without angina pectoris; Z79.899 Other long term (current) drug therapy
CPT/HCPCS: 36415; 36569; 74018; 74176; 80053; 81001; 82009; 82150; 82728; 83540; 83550; 83605; 83615; 83690; 85025; 87086; 96361; 96374; 96375; 96376; 99285

== ENCOUNTER 2018-08-31 13:06 | Inpatient (IN) | payer MEDICARE, OTHER ==
[2018-08-31] MEDS ORDERED: IPRATROPIUM-ALBUTEROL 3 ML NEB INHALATION STA (13:39)
[2018-08-31] MEDS ORDERED: FUROSEMIDE 10 MG/ML 4 ML VIAL IV STA (13:39)
--- NOTE | 2018-08-31 14:15 | ED ---
SOB HPI - General Chief Complaint: Shortness of Breath Stated Complaint: SOB Time Seen by Provider: 08/31/18 13:37 Source: patient, RN notes reviewed, old records reviewed Mode of arrival: ambulatory Limitations: no limitations - History of Present Illness Initial Comments: This is a 48-year-old female the ER for evaluation. Patient denying for evaluation of shortness of breath, cough and congestion, no history of CHF and renal failure, patient feels like she is in CHF with renal failure. Increased cough and congestion no chest pain no nausea no vomiting MD Complaint: shortness of breath, chest pain -: days(s) Radiation: other Severity: mild Severity scale (1-10): 3 Consistency: constant Improves With: nothing Worsens With: nothing Known History Of: congestive heart failure Associated Symptoms: denies other symptoms, chest pain - Related Data Home Medications Medication Instructions Recorded Confirmed HYDROmorphone HCL [Dilaudid] 8 mg PO Q8HR PRN 09/06/16 08/31/18 Polyethylene Glycol 3350 [Miralax] 17 gm PO DAILY PRN 08/01/18 08/31/18 Aspirin EC [Ecotrin Low Dose] 81 mg PO DAILY 08/31/18 08/31/18 Atorvastatin [Lipitor] 40 mg PO DAILY 08/31/18 08/31/18 Diltiazem Oral [Cardizem Oral] 30 mg PO QID 08/31/18 08/31/18 Docusate [Colace] 100 mg PO BID PRN 08/31/18 08/31/18 Enoxaparin [Lovenox] 40 mg SQ Q12H 08/31/18 08/31/18 Furosemide [Lasix] 10 mg PO DAILY 08/31/18 08/31/18 Isosorbide Mononitrate ER [Imdur] 30 mg PO DAILY 08/31/18 08/31/18 Megestrol [Megace] 400 mg PO DAILY 08/31/18 08/31/18 Morphine Sulfate [Ms Contin] 100 mg PO Q12H 08/31/18 08/31/18 Pantoprazole Sodium [Protonix] 40 mg PO DAILY 08/31/18 08/31/18 QUEtiapine [SEROquel] 25 mg PO HS 08/31/18 08/31/18 Sennosides [Senna] 8.6 mg PO BID PRN 08/31/18 08/31/18 hydrALAZINE HCL 10 mg PO TID 08/31/18 08/31/18 Previous Rx's Medication Instructions Recorded Clopidogrel [Plavix] 75 mg PO DAILY tab 08/03/18 Cyclobenzaprine [Flexeril] 10 mg PO TID PRN tab 08/03/18 Mirtazapine [Remeron] 30 mg PO HS PRN tab 08/03/18 Oxybutynin Chloride [Ditropan] 5 mg PO TID tab 08/03/18 Allergies Allergy/AdvReac Type Severity Reaction Status Date / Time ibuprofen Allergy Unknown Verified 08/31/18 13:56 trazodone Allergy Chest Pain Verified 08/31/18 13:56 Review of Systems ROS Statement: Those systems with pertinent positive or pertinent negative responses have been documented in the HPI. ROS Other: All systems not noted in ROS Statement are negative. Past Medical History Past Medical History: Asthma, Heart Failure, CVA/TIA, Deep Vein Thrombosis (DVT) , Osteoarthritis (OA), Pulmonary Embolus (PE), Renal Disease Additional Past Medical History / Comment(s): sticky platelet syndrome, bronchitis, anx/depression, falls History of Any Multi-Drug Resistant Organisms: None Reported Past Surgical History: Cholecystectomy, Coronary Bypass/CABG Additional Past Surgical History / Comment(s): ltBKA, left lower leg, aortic bypass right leg, right leg fasciotomy.pt stated had another vascular sx after the fasciotomy at [facility] unclear as to exactly what was done Rt BKA Past Anesthesia/Blood Transfusion Reactions: No Reported Reaction Past Psychological History: Anxiety, Depression Smoking Status: Former smoker Past Alcohol Use History: None Reported Past Drug Use History: None Reported - Past Family History Mother Additional Family Medical History / Comment(s): MS, legally blind, cataracts Father Additional Family Medical History / Comment(s): Was younger when he , car accident General Exam Limitations: no limitations General appearance: alert, in no apparent distress Head exam: Present: atraumatic, normocephalic, normal inspection Eye exam: Present: normal appearance, PERRL, EOMI. Absent: scleral icterus, conjunctival injection, periorbital swelling ENT exam: Present: normal exam, mucous membranes moist Neck exam: Present: normal inspection. Absent: tenderness, meningismus, lymphadenopathy Respiratory exam: Present: respiratory distress, rales, decreased breath sounds , prolonged expiratory. Absent: wheezes, rhonchi, stridor Cardiovascular Exam: Present: regular rate, normal rhythm, normal heart sounds. Absent: systolic murmur, diastolic murmur, rubs, gallop, clicks GI/Abdominal exam: Present: soft, normal bowel sounds. Absent: distended, tenderness, guarding, rebound, rigid Extremities exam: Present: normal inspection, full ROM, normal capillary refill , other (Bilateral AKA). Absent: tenderness, pedal edema, joint swelling, calf tenderness Back exam: Present: normal inspection Neurological exam: Present: alert, oriented X3, CN II-XII intact Psychiatric exam: Present: normal affect, normal mood Skin exam: Present: warm, dry, intact, normal color. Absent: rash Course Vital Signs 08/31/18 08/31/18 08/31/18 13:31 14:21 14:30 Temperature 97.6 F Pulse Rate 65 135 H Respiratory 18 18 Rate Blood Pressure 111/54 128/97 128/97 O2 Sat by Pulse 90 L Oximetry 08/31/18 08/31/18 08/31/18 15:00 15:08 15:20 Temperature Pulse Rate 134 H 130 H 135 H Respiratory 18 Rate Blood Pressure 128/97 O2 Sat by Pulse Oximetry 08/31/18 08/31/18 08/31/18 15:30 16:00 18:00 Temperature Pulse Rate 140 H 134 H 132 H Respiratory 18 18 18 Rate Blood Pressure 124/86 135/94 128/98 O2 Sat by Pulse 98 98 Oximetry 08/31/18 19:15 Temperature Pulse Rate 128 H Respiratory 18 Rate Blood Pressure 128/98 O2 Sat by Pulse 97 Oximetry - Reevaluation(s) Reevaluation #1: Medical record is reviewed Patient is difficult IV start, IV team consulted this evaluate patient Patient with no clinical improvement currently Medical Decision Making - Medical Decision Making 48 female the ER with persistent CHF and acute renal failure. Patient be admitted for diuresis and pain control - Lab Data Result diagrams: 09/01/18 03:50 09/01/18 03:50 Lab Results 08/31/18 08/31/18 08/31/18 Range/Units 15:15 15:15 15:15 WBC 5.7 (3.8-10.6) k/uL RBC 3.36 L (3.80-5.40) m/uL Hgb 9.9 L D (11.4-16.0) gm/dL Hct 30.6 L (34.0-46.0) % MCV 91.0 (80.0-100.0) fL MCH 29.3 (25.0-35.0) pg MCHC 32.2 (31.0-37.0) g/dL RDW 17.9 H (11.5-15.5) % Plt Count 373 (150-450) k/uL Neutrophils % 76 % Lymphocytes % 17 % Monocytes % 4 % Eosinophils % 1 % Basophils % 1 % Neutrophils # 4.3 (1.3-7.7) k/uL Lymphocytes # 1.0 (1.0-4.8) k/uL Monocytes # 0.3 (0-1.0) k/uL Eosinophils # 0.1 (0-0.7) k/uL Basophils # 0.0 (0-0.2) k/uL Hypochromasia Slight Anisocytosis Slight PT (9.0-12.0) sec INR (<1.2) APTT (22.0-30.0) sec Sodium 140 (137-145) mmol/L Potassium 4.0 (3.5-5.1) mmol/L Chloride 112 H (98-107) mmol/L Carbon Dioxide 18 L (22-30) mmol/L Anion Gap 10 mmol/L BUN 49 H (7-17) mg/dL Creatinine 2.38 H (0.52-1.04) mg/dL Est GFR (CKD-EPI)AfAm 27 (>60 ml/min/1.73 sqM) Est GFR (CKD-EPI)NonAf 23 (>60 ml/min/1.73 sqM) Glucose 91 (74-99) mg/dL Calcium 7.9 L (8.4-10.2) mg/dL Magnesium 1.7 (1.6-2.3) mg/dL Total Bilirubin 0.4 (0.2-1.3) mg/dL AST 85 H (14-36) U/L ALT 59 H (9-52) U/L Alkaline Phosphatase 261 H (38-126) U/L Total Creatine Kinase 36 (30-135) U/L CK-MB (CK-2) 2.3 (0.0-2.4) ng/mL CK-MB (CK-2) Rel Index 6.4 Troponin I 0.012 (0.000-0.034) ng/mL NT-Pro-B Natriuret Pep pg/mL Total Protein 5.9 L (6.3-8.2) g/dL Albumin 2.3 L (3.5-5.0) g/dL 08/31/18 08/31/18 Range/Units 15:15 15:15 WBC (3.8-10.6) k/uL RBC (3.80-5.40) m/uL Hgb (11.4-16.0) gm/dL Hct (34.0-46.0) % MCV (80.0-100.0) fL MCH (25.0-35.0) pg MCHC (31.0-37.0) g/dL RDW (11.5-15.5) % Plt Count (150-450) k/uL Neutrophils % % Lymphocytes % % Monocytes % % Eosinophils % % Basophils % % Neutrophils # (1.3-7.7) k/uL Lymphocytes # (1.0-4.8) k/uL Monocytes # (0-1.0) k/uL Eosinophils # (0-0.7) k/uL Basophils # (0-0.2) k/uL Hypochromasia Anisocytosis PT 11.2 (9.0-12.0) sec INR 1.2 H (<1.2) APTT 23.4 (22.0-30.0) sec Sodium (137-145) mmol/L Potassium (3.5-5.1) mmol/L Chloride (98-107) mmol/L Carbon Dioxide (22-30) mmol/L Anion Gap mmol/L BUN (7-17) mg/dL Creatinine (0.52-1.04) mg/dL Est GFR (CKD-EPI)AfAm (>60 ml/min/1.73 sqM) Est GFR (CKD-EPI)NonAf (>60 ml/min/1.73 sqM) Glucose (74-99) mg/dL Calcium (8.4-10.2) mg/dL Magnesium (1.6-2.3) mg/dL Total Bilirubin (0.2-1.3) mg/dL AST (14-36) U/L ALT (9-52) U/L Alkaline Phosphatase (38-126) U/L Total Creatine Kinase (30-135) U/L CK-MB (CK-2) (0.0-2.4) ng/mL CK-MB (CK-2) Rel Index Troponin I (0.000-0.034) ng/mL NT-Pro-B Natriuret Pep [id number] pg/mL Total Protein (6.3-8.2) g/dL Albumin (3.5-5.0) g/dL - EKG Data -: EKG Interpreted by Me (While states he shows sinus tach cardia rate 137, CT 112, QRS 66, QTc 561) EKG shows normal: sinus rhythm Rate: normal Critical Care Time Critical Care Time: Yes Total Critical Care Time: 31 Disposition Clinical Impression: Congestive heart failure, Leg pain, Sticky platelet syndrome, Acute pulmonary edema, PVD (peripheral vascular disease) Disposition: ADMITTED IP TO THIS HOSP Condition: Fair Is patient prescribed a controlled substance at d/c from ED?: No
[2018-08-31] MEDS ORDERED: MORPHINE SULFATE 4 MG/ML SYRINGE IVP STA (15:18)
[2018-08-31] MEDS ORDERED: MORPHINE SULFATE 4 MG/ML SYRINGE IVP PRN (15:18)
[2018-08-31 15:29] LABS: Anisocytosis Slight; Basophils % (A) 1 %; Eosinophils # (A) 0.1 k/uL (0-0.7); Eosinophils % (A) 1 %; HCT 30.6 % (34.0-46.0); Hypochromasia Slight; Lymphocytes % (A) 17 %; MCH 29.3 pg (25.0-35.0); MCHC 32.2 g/dL (31.0-37.0); Mean Platelet Volume 7.3; Monocytes # (A) 0.3 k/uL (0-1.0); Monocytes % (A) 4 %; Neutrophils # (A) 4.3 k/uL (1.3-7.7); Neutrophils % (A) 76 %; Platelet Count 373 k/uL (150-450); RBC 3.36 m/uL (3.80-5.40); RDW 17.9 % (11.5-15.5); WBC 5.7 k/uL (3.8-10.6)
[2018-08-31 15:34] LABS: HGB 9.9 gm/dL (11.4-16.0)
[2018-08-31 15:37] LABS: INR 1.2 (<1.2); Partial Thromboplastin Time 23.4 sec (22.0-30.0); Prothrombin Time 11.2 sec (9.0-12.0)
[2018-08-31 15:43] LABS: Albumin 2.3 g/dL (3.5-5.0); Calcium 7.9 mg/dL (8.4-10.2); Magnesium 1.7 mg/dL (1.6-2.3); Total Bilirubin 0.4 mg/dL (0.2-1.3); Total Protein 5.9 g/dL (6.3-8.2)
[2018-08-31 15:57] LABS: Creatine Kinase MB 2.3 ng/mL (0.0-2.4); Troponin I 0.012 ng/mL (0.000-0.034)
--- NOTE | 2018-08-31 16:36 | XR ---
EXAMINATION: XR chest 2V DATE AND TIME: 08/31/2018 4:24 PM CLINICAL INDICATION: difficulty breathing TECHNIQUE: PA and lateral COMPARISON: None. FINDINGS: The upper and mid lungs are clear where there are numerous septal lines in the lung bases with silhou etting of the pulmonary vasculature in the lung bases bilaterally by findings ventricular pattern of increased density. The pleural spaces are positive for bilateral moderate pleural effusions, somewhat greater on the right. Bibasilar atelectasis is noted, concurrent pneumonia can be clinically conside red. The cardiac silhouette is moderately enlarged. There is thoracic aorta ectasia. The skeletal structures and soft tissues are negative for acute findings. IMPRESSION: Radiographic findings consistent with cardiogenic pulmonary edema with bilateral pleural effusions.
[2018-08-31] MEDS ORDERED: DOCUSATE 100 MG CAP PO PRN (20:59)
[2018-08-31] MEDS ORDERED: MIRTAZAPINE 15 MG TAB PO PRN (20:59)
[2018-08-31] MEDS ORDERED: CYCLOBENZAPRINE 10 MG TAB PO PRN (20:59)
[2018-08-31] MEDS ORDERED: SENNOSIDES 8.6 MG TAB PO PRN (20:59)
--- NOTE | 2018-08-31 21:07 | P.HPIM ---
History of Present Illness H&P Date: 08/31/18 Chief Complaint: Shortness of breath 48-year-old female with history of sticky platelet syndrome. Patient presented to the hospital due to difficulty in breathing that has been going on and being progressive over the past few days. This has also been associated with right-sided chest pain that radiates to the right flank she reports that this pain has been chronic going on for at least a week now got worse yesterday she rates it at 10 out of 10 in severity however she seems to be comfortable during the interview, she describes it as heavy stabbing in nature sometimes not associated with any nausea vomiting no coughing no fevers no chills she reports nothing makes it worse but her pain medications MS Contin and Dilaudid makes it better. She has been noticing some decrease in her functional status with increased frailty and debility and she is hoping for some physical therapy. She has very poor appetite and she's been losing weight. She denies any GI bleeding she denies any history of coronary artery disease. She denies any orthopnea or paroxysmal nocturnal dyspnea. Patient recently hospitalized in our facility for AKA and right flank pain there were suspicion for renal infarct for which she was transferred to [facility] I have no records at this time for revision. Review of Systems Pertinent positives as noted in HPI. All other systems were reviewed and are negative Past Medical History Past Medical History: Asthma, Heart Failure, CVA/TIA, Deep Vein Thrombosis (DVT) , Osteoarthritis (OA), Pulmonary Embolus (PE), Renal Disease Additional Past Medical History / Comment(s): sticky platelet syndrome, bronchitis, anx/depression, falls History of Any Multi-Drug Resistant Organisms: None Reported Past Surgical History: Cholecystectomy, Coronary Bypass/CABG Additional Past Surgical History / Comment(s): ltBKA, left lower leg, aortic bypass right leg, right leg fasciotomy.pt stated had another vascular sx after the fasciotomy at [facility] unclear as to exactly what was done Rt BKA Past Anesthesia/Blood Transfusion Reactions: No Reported Reaction Additional Past Anesthesia/Blood Transfusion Reaction / Comment(s): pt stated has had a blood transfusion in past-no reaction Smoking Status: Former smoker - Past Family History Mother Additional Family Medical History / Comment(s): MS, legally blind, cataracts Father Additional Family Medical History / Comment(s): Was younger when he , car accident Medications and Allergies Home Medications Medication Instructions Recorded Confirmed Type HYDROmorphone HCL [Dilaudid] 8 mg PO Q8HR PRN 09/06/16 08/31/18 History Polyethylene Glycol 3350 [Miralax] 17 gm PO DAILY PRN 08/01/18 08/31/18 History Clopidogrel [Plavix] 75 mg PO DAILY tab 08/03/18 08/31/18 Rx Cyclobenzaprine [Flexeril] 10 mg PO TID PRN tab 08/03/18 08/31/18 Rx Mirtazapine [Remeron] 30 mg PO HS PRN tab 08/03/18 08/31/18 Rx Oxybutynin Chloride [Ditropan] 5 mg PO TID tab 08/03/18 08/31/18 Rx Aspirin EC [Ecotrin Low Dose] 81 mg PO DAILY 08/31/18 08/31/18 History Atorvastatin [Lipitor] 40 mg PO DAILY 08/31/18 08/31/18 History Diltiazem Oral [Cardizem Oral] 30 mg PO QID 08/31/18 08/31/18 History Docusate [Colace] 100 mg PO BID PRN 08/31/18 08/31/18 History Enoxaparin [Lovenox] 40 mg SQ Q12H 08/31/18 08/31/18 History Furosemide [Lasix] 10 mg PO DAILY 08/31/18 08/31/18 History Isosorbide Mononitrate ER [Imdur] 30 mg PO DAILY 08/31/18 08/31/18 History Megestrol [Megace] 400 mg PO DAILY 08/31/18 08/31/18 History Morphine Sulfate [Ms Contin] 100 mg PO Q12H 08/31/18 08/31/18 History Pantoprazole Sodium [Protonix] 40 mg PO DAILY 08/31/18 08/31/18 History QUEtiapine [SEROquel] 25 mg PO HS 08/31/18 08/31/18 History Sennosides [Senna] 8.6 mg PO BID PRN 08/31/18 08/31/18 History hydrALAZINE HCL 10 mg PO TID 08/31/18 08/31/18 History Allergies Allergy/AdvReac Type Severity Reaction Status Date / Time ibuprofen Allergy Unknown Verified 08/31/18 13:56 trazodone Allergy Chest Pain Verified 08/31/18 13:56 Physical Exam Vitals: Vital Signs Temp Pulse Resp BP Pulse Ox 08/31/18 19:15 128 H 18 128/98 97 08/31/18 18:00 132 H 18 128/98 98 08/31/18 16:00 134 H 18 135/94 98 08/31/18 15:30 140 H 18 124/86 08/31/18 15:20 135 H 08/31/18 15:08 130 H 08/31/18 15:00 134 H 18 128/97 08/31/18 14:30 135 H 18 128/97 08/31/18 14:21 128/97 08/31/18 13:31 97.6 F 65 18 111/54 90 L Intake and Output 08/31/18 08/31/18 08/31/18 06:59 14:59 22:59 Other: Weight 38.555 kg Constitutional: No acute distress, conversant, pleasant, cachectic Eyes: Anicteric sclerae, moist conjunctiva, no lid-lag Pupils equal round reactive to light ENMT: NC/AT Oropharynx clear, no erythema, or exudates, patient wear upper and lower dentures Neck: Supple, FROM, no masses, positive JVD No carotid bruits No thyromegaly Lungs: Decreased breath sounds at bilateral lung bases with inspiratory rales Patient wearing nasal cannula Normal respiratory effort, no accessory muscle use Cardiovascular: normal S1 and S2, tachycardia No murmurs, gallops, or rubs Abdominal: Soft Nontender, no guarding, rebound or rigidity Abdomen moving with respiration Normoactive bowel sounds No hepatomegaly, No splenomegaly No palpable mass No abdominal wall hernia noted Skin: Nonblanching pink area over the left buttock, Normal temperature, tone, texture, turgor No induration No subcutaneous nodules Extremities: No digital cyanosis Bilateral mild clubbing of the fingernails Radial pulses intact and symmetrical Psychiatric: Alert and oriented to person, place and time Appropriate affect fair judgment Neuro Muscles Strength 5/5 in all 4 extremities (patient has left BKA and right AKA) Sensation to light touch grossly present throughout Cranial nerves II-XII grossly intact No focal sensory deficits Lymphatics: no palpable cervical or supraclavicular , or inguinal lymph nodes Results CBC & Chem 7: 08/31/18 15:15 08/31/18 15:15 Labs: Abnormal Lab Results - Last 24 Hours (Table) 08/31/18 08/31/18 08/31/18 Range/Units 15:15 15:15 15:15 RBC 3.36 L (3.80-5.40) m/uL Hgb 9.9 L D (11.4-16.0) gm/dL Hct 30.6 L (34.0-46.0) % RDW 17.9 H (11.5-15.5) % INR 1.2 H (<1.2) Chloride 112 H (98-107) mmol/L Carbon Dioxide 18 L (22-30) mmol/L BUN 49 H (7-17) mg/dL Creatinine 2.38 H (0.52-1.04) mg/dL Calcium 7.9 L (8.4-10.2) mg/dL AST 85 H (14-36) U/L ALT 59 H (9-52) U/L Alkaline Phosphatase 261 H (38-126) U/L Total Protein 5.9 L (6.3-8.2) g/dL Albumin 2.3 L (3.5-5.0) g/dL Thrombosis Risk Factor Assmnt - Choose All That Apply Any of the Below Risk Factors Present?: Yes Each Factor Represents 1 point: Age 41-60 years Other Risk Factors: Yes Each Risk Factor Represents 2 Points: Patient confined to bed Each Risk Factor Represents 3 Points: Positive Lupus Anticoagulant Thrombosis Risk Factor Assessment Total Risk Factor Score: 6 Thrombosis Risk Factor Assessment Level: High Risk Assessment and Plan Assessment: 48-year-old female with extensive past medical history including sticky lately syndrome, admitted under inpatient with anticipated length of stay of more than 48 hours due to acute hypoxic respiratory failure from pulmonary edema and bilateral pleural effusion due to suspected underlying new onset CHF, patient will be placed on IV diuresis and strict I's and O's, cardiac monitoring due to sinus tachycardia and obtaining echocardiogram the morning along with cardiology and nephrology consult. patient was recently admitted to our hospital 1 month ago MOE, and abd imelda n, CT abd did not show any nephrolithiasis , there were concerns regarding right renal infarct and due to MOE, was not able to perform contrast study, patient receives care at [facility], for which she was transferred to that facility for further care, no records available at this time for revision. Plan: Acute hypoxic respiratory failure , 2/2 pulmonary edema pulmonary edema possible new onset CHF MOE, prerenal ATN from poor perfusion IV diuresis Echocardiogram morphine PRN property assessment monitor monitor cardiac enzymes cardiology consult nephrology consult strict I/Os vital sings monitoring supplemental oxygen daily weight fluid restriction follow up labs decubitus ulcer left buttock present upon admission daily wound care Obtain records from [facility], regarding workup for her MOE and possible right renal infarct based on CTA from 07/02/2018. PT/OT chronic conditions sticky platelet syndrome peripheral vascular disease, s/p bilateral amputation left BKA, and Right AKA, and femoral bypass graft history of CVA chronic back pain History of venous thromboembolic Severe protein calorie malnutrition Preformed a thorough record review from recent hospitalization where she was admitted 1 months ago for MOE, and abd imelda n, CT abd did not show any nephrolithiasis , there were concerns regarding right renal infarct and due to MOE, was not able to perform contrast study, patient receives care at [facility], for which she was transferred to that facility for further care, no records available at this time for revision. Surrogate decision-maker: patient mother CODE STATUS:full code DVT prophylaxis: heparin sc tid Discussed with: Patient, ER, RN Anticipated discharge: 48-[address]: I think patient would benefit from [facility], she is not very interested in this , and prefers home with home care A total of 60 minutes was spent on the care of this complex patient more than 50 % of the time was spent in counseling and care coordination.
[2018-08-31] MEDS: MORPHINE SULFATE ER 100 MG TABLET PO SCH (21:22)
[2018-08-31] MEDS: OXYBUTYNIN CHLORIDE 5 MG TAB PO SCH (21:23)
[2018-08-31] MEDS: DILTIAZEM ORAL 30 MG TAB PO SCH (21:23)
[2018-08-31] MEDS: hydrALAZINE HCL 10 MG TAB PO SCH (21:23)
[2018-08-31] MEDS: SODIUM CHLORIDE 0.9% 1,000 ML IV SCH (21:31)
[2018-08-31] MEDS: FUROSEMIDE 10 MG/ML 4 ML VIAL IV SCH (22:33)
[2018-08-31] MEDS: HEPARIN SODIUM,PORCINE 5,000 UNIT/ML 1 ML VIAL SQ SCH (22:36)
[2018-08-31] MEDS: QUEtiapine 25 MG TAB PO SCH (22:38)
[2018-09-01 04:15] LABS: Albumin 2.4 g/dL (3.5-5.0); Calcium 8.4 mg/dL (8.4-10.2); Potassium 4.3 mmol/L (3.5-5.1); Total Bilirubin 0.4 mg/dL (0.2-1.3); Total Protein 6.2 g/dL (6.3-8.2)
[2018-09-01 04:29] LABS: Anisocytosis Slight; Basophils % (A) 1 %; Eosinophils # (A) 0.1 k/uL (0-0.7); Eosinophils % (A) 1 %; HCT 35.5 % (34.0-46.0); HGB 11.1 gm/dL (11.4-16.0); Hypochromasia Moderate; Lymphocytes # (A) 1.6 k/uL (1.0-4.8); Lymphocytes % (A) 31 %; MCH 29.2 pg (25.0-35.0); MCHC 31.2 g/dL (31.0-37.0); MCV 93.8 fL (80.0-100.0); Mean Platelet Volume 7.6; Monocytes # (A) 0.3 k/uL (0-1.0); Monocytes % (A) 5 %; Neutrophils # (A) 3.2 k/uL (1.3-7.7); Neutrophils % (A) 62 %; Platelet Count 328 k/uL (150-450); RBC 3.79 m/uL (3.80-5.40); RDW 17.8 % (11.5-15.5); WBC 5.1 k/uL (3.8-10.6)
[2018-09-01] MEDS ORDERED: ENOXAPARIN 40 MG/0.4 ML SYRINGE SQ SCH (09:00)
[2018-09-01] MEDS: ATORVASTATIN 40 MG TAB PO SCH (09:13)
[2018-09-01] MEDS: ASPIRIN 81 MG PO SCH (09:13)
[2018-09-01] MEDS: CLOPIDOGREL 75 MG TAB PO SCH (09:13)
[2018-09-01] MEDS: MORPHINE SULFATE ER 100 MG TABLET PO SCH ×2 (09:13→20:59)
[2018-09-01] MEDS: DILTIAZEM ORAL 30 MG TAB PO SCH (09:13)
[2018-09-01] MEDS: hydrALAZINE HCL 10 MG TAB PO SCH ×3 (09:13→22:52)
[2018-09-01] MEDS: PANTOPRAZOLE 40 MG TABLET PO SCH (09:13)
[2018-09-01] MEDS: MEGESTROL 400 MG/10 ML CUP PO SCH (09:13)
[2018-09-01] MEDS: ISOSORBIDE MONONITRATE ER 30 MG TAB.ER.24H PO SCH (09:13)
[2018-09-01] MEDS: OXYBUTYNIN CHLORIDE 5 MG TAB PO SCH ×3 (09:14→21:00)
[2018-09-01] MEDS: FUROSEMIDE 10 MG/ML 4 ML VIAL IV SCH ×3 (09:14→21:00)
[2018-09-01] MEDS: HEPARIN SODIUM,PORCINE 5,000 UNIT/ML 1 ML VIAL SQ SCH (09:15)
--- NOTE | 2018-09-01 09:41 | P.PN ---
Subjective Progress Note Date: 09/01/18 Principal diagnosis: Shortness of breath Patient is a 48-year-old -[place] female with a history of sticky platelet syndrome, multiple DVTs, pulmonary embolism, and peripheral arterial disease who presented in with right-sided chest pain and shortness of breath. In the ER she underwent an extensive evaluation. On arrival her vital signs showed a slight hypoxemia with an O2 sat of 90% on room air. Laboratory analysis showed a hyperchloremic metabolic acidosis as well as an elevated creatinine at 2.38. She had slightly elevated liver enzymes. A BNP was 127, 000. Initial troponin was negative. EKG did not show any signs of acute ischemia. She was given a dose of morphine, Lasix, and DuoNeb. Arrangements were made for admission. She was found to have pulmonary edema and her Lasix was continued. Cardiology was consulted and echocardiogram was ordered. Patient seen and examined at bedside. She denies any personal history of congestive heart failure. She states her breathing is better but she still having some chest tightness and shortness of breath. She denies any cough. No nausea, vomiting, diarrhea or constipation. She is upset about her pressure ulcer. Objective - Vital Signs Vital signs: Vital Signs Temp 97.6 F 09/01/18 08:00 Pulse 61 09/01/18 08:00 Resp 16 09/01/18 08:00 BP 110/83 09/01/18 08:00 Pulse Ox 100 09/01/18 08:00 Intake & Output 08/31/18 09/01/18 09/01/18 18:59 06:59 18:59 Intake Total 100 100 250 Balance 100 100 250 Weight 38.555 kg 42 kg Intake: Oral 100 100 250 Other: Voiding Method Toilet Bedpan - Exam General: Ill-appearing, no distress, appears at stated age, cachectic Derm: Pressure ulcer over the sacral area with mild drainage and some blood, not malodorous, warm, dry Head: atraumatic, normocephalic, symmetric Eyes: EOMI, no lid lag, anicteric sclera Mouth: no lip lesion, mucus membranes moist Cardiovascular: S1S2 reg, no murmur, positive posterior tibial pulse bilateral, Lungs: Coarse breath sounds bilateral, no rhonchi, no rales , no accessory muscle use Abdominal: soft, nontender to palpation, no guarding, no appreciable organomegaly Ext: no gross muscle atrophy, no edema, no contractures Neuro: CN II-XI grossly intact, no focal neuro deficits Psych: Alert, oriented, appropriate affect - Labs CBC & Chem 7: 09/01/18 03:50 09/01/18 03:50 Labs: Abnormal Lab Results - Last 24 Hours (Table) 08/31/18 08/31/18 08/31/18 Range/Units 15:15 15:15 15:15 RBC 3.36 L (3.80-5.40) m/uL Hgb 9.9 L D (11.4-16.0) gm/dL Hct 30.6 L (34.0-46.0) % RDW 17.9 H (11.5-15.5) % INR 1.2 H (<1.2) Chloride 112 H (98-107) mmol/L Carbon Dioxide 18 L (22-30) mmol/L BUN 49 H (7-17) mg/dL Creatinine 2.38 H (0.52-1.04) mg/dL Calcium 7.9 L (8.4-10.2) mg/dL AST 85 H (14-36) U/L ALT 59 H (9-52) U/L Alkaline Phosphatase 261 H (38-126) U/L Total Protein 5.9 L (6.3-8.2) g/dL Albumin 2.3 L (3.5-5.0) g/dL 09/01/18 09/01/18 Range/Units 03:50 03:50 RBC 3.79 L (3.80-5.40) m/uL Hgb 11.1 L (11.4-16.0) gm/dL Hct (34.0-46.0) % RDW 17.8 H (11.5-15.5) % INR (<1.2) Chloride 112 H (98-107) mmol/L Carbon Dioxide 18 L (22-30) mmol/L BUN 50 H (7-17) mg/dL Creatinine 2.36 H (0.52-1.04) mg/dL Calcium (8.4-10.2) mg/dL AST 69 H (14-36) U/L ALT 56 H (9-52) U/L Alkaline Phosphatase 257 H (38-126) U/L Total Protein 6.2 L (6.3-8.2) g/dL Albumin 2.4 L (3.5-5.0) g/dL Assessment and Plan Assessment: Pulmonary edema, possible new onset congestive heart failure -Continue with Lasix -Await echocardiogram -Consult cardiology -Not chronically on beta marcos or NOLVIA inhibitor. We'll continue Imdur and hydralazine. Acute kidney injury versus chronic kidney disease, baseline creatinine 2.04 in July but have been normal before that -Avoid nephrotoxic agents other than Lasix which as needed to optimize fluid status - await nephro recs - follow BMP closely with diuresis - Await records from [facility] [place] with recent Cr and testing. Sticky platelet syndrome, with recent renal infract - resume home lovenox - follow with heme/onc out of [facility] Severe protein calorie malnutrition - continue megace... Needs to d/w heme onc and outpatient as it increases risk of thromboembolism - dietitian recs PAD, CAD - ASA, Plavix Mild transaminitis - chronic in nature - continued outpatient evaluation Chronic anemia - follow-up as outpatient, appears better than baseline Stage II Sacral pressure ulcer, POA - off loading - consult Dr. Beal for recs DVT prophylaxis: Lovenox Discussed with: Patient Anticipated discharge: 48-[address]: home with home health A total of 45 minutes was spent on the care of this complex patient more than 50 % of the time was spent in counseling and care coordination.
--- NOTE | 2018-09-01 10:07 | P.CRDCN ---
History of Present Illness Consult date: 09/01/18 Requesting physician: Sage George Consult reason: congestive heart failure Chief complaint: Shortness of breath History of present illness: This is a 48-year-old -Monegas[place] female with history of prior CVA, asthma , prior DVT, prior pulmonary embolism, she has history of PAD with a right above -the-knee amputation and a left below the knee amputation, prior history of smoking, who presented to the hospital on this occasion with symptoms of progressively worsening shortness of breath. Chest x-ray on admission showed findings consistent with cardiogenic pulmonary edema and bilateral effusions. EKG shows a sinus tachycardia with nonspecific ST-T wave changes. Blood pressure on arrival here 110/50 with a heart rate in the 60s, this morning's blood pressure 110/80 with a heart rate in the 60s, patient was noted on review of her rhythm strips to have some sinus tachycardia. White blood cell count 5.1 , hemoglobin 11.1, platelet count 328. Sodium 139, potassium 4.3, BUN 50, creatinine 2.3. Troponins 0.012, 0.014, 0.013. BNP level 127,000. At the time of my examination this morning, patient is lying flat in bed, doesn't complain of significant shortness of breath, but states with minimal exertion she does get quite short of breath. Past Medical History Past Medical History: Asthma, Heart Failure, CVA/TIA, Deep Vein Thrombosis (DVT) , Osteoarthritis (OA), Pulmonary Embolus (PE), Renal Disease Additional Past Medical History / Comment(s): sticky platelet syndrome, bronchitis, anx/depression, falls History of Any Multi-Drug Resistant Organisms: None Reported Past Surgical History: Cholecystectomy, Coronary Bypass/CABG Additional Past Surgical History / Comment(s): ltBKA, left lower leg, aortic bypass right leg, right leg fasciotomy.pt stated had another vascular sx after the fasciotomy at [facility] unclear as to exactly what was done Rt BKA Past Anesthesia/Blood Transfusion Reactions: No Reported Reaction Additional Past Anesthesia/Blood Transfusion Reaction / Comment(s): pt stated has had a blood transfusion in past-no reaction Smoking Status: Former smoker - Past Family History Mother Additional Family Medical History / Comment(s): MS, legally blind, cataracts Father Additional Family Medical History / Comment(s): Was younger when he , car accident Medications and Allergies Home Medications Medication Instructions Recorded Confirmed Type HYDROmorphone HCL [Dilaudid] 8 mg PO Q8HR PRN 09/06/16 08/31/18 History Polyethylene Glycol 3350 [Miralax] 17 gm PO DAILY PRN 08/01/18 08/31/18 History Clopidogrel [Plavix] 75 mg PO DAILY tab 08/03/18 08/31/18 Rx Cyclobenzaprine [Flexeril] 10 mg PO TID PRN tab 08/03/18 08/31/18 Rx Mirtazapine [Remeron] 30 mg PO HS PRN tab 08/03/18 08/31/18 Rx Oxybutynin Chloride [Ditropan] 5 mg PO TID tab 08/03/18 08/31/18 Rx Aspirin EC [Ecotrin Low Dose] 81 mg PO DAILY 08/31/18 08/31/18 History Atorvastatin [Lipitor] 40 mg PO DAILY 08/31/18 08/31/18 History Diltiazem Oral [Cardizem Oral] 30 mg PO QID 08/31/18 08/31/18 History Docusate [Colace] 100 mg PO BID PRN 08/31/18 08/31/18 History Enoxaparin [Lovenox] 40 mg SQ Q12H 08/31/18 08/31/18 History Furosemide [Lasix] 10 mg PO DAILY 08/31/18 08/31/18 History Isosorbide Mononitrate ER [Imdur] 30 mg PO DAILY 08/31/18 08/31/18 History Megestrol [Megace] 400 mg PO DAILY 08/31/18 08/31/18 History Morphine Sulfate [Ms Contin] 100 mg PO Q12H 08/31/18 08/31/18 History Pantoprazole Sodium [Protonix] 40 mg PO DAILY 08/31/18 08/31/18 History QUEtiapine [SEROquel] 25 mg PO HS 08/31/18 08/31/18 History Sennosides [Senna] 8.6 mg PO BID PRN 08/31/18 08/31/18 History hydrALAZINE HCL 10 mg PO TID 08/31/18 08/31/18 History Allergies Allergy/AdvReac Type Severity Reaction Status Date / Time ibuprofen Allergy Unknown Verified 08/31/18 13:56 trazodone Allergy Chest Pain Verified 08/31/18 13:56 Physical Exam Vitals: Vital Signs Temp Pulse Pulse Resp BP BP Pulse Ox 09/01/18 08:00 97.6 F 61 16 110/83 100 09/01/18 04:00 98.0 F 116 H 16 112/82 94 L 08/31/18 23:36 130 H 16 08/31/18 23:34 97.9 F 130 H 16 128/83 100 08/31/18 20:00 97.7 F 120 H 18 130/97 97 08/31/18 19:15 128 H 18 128/98 97 08/31/18 18:00 132 H 18 128/98 98 08/31/18 16:00 134 H 18 135/94 98 08/31/18 15:30 140 H 18 124/86 08/31/18 15:20 135 H 08/31/18 15:08 130 H 08/31/18 15:00 134 H 18 128/97 08/31/18 14:30 135 H 18 128/97 08/31/18 14:21 128/97 08/31/18 13:31 97.6 F 65 18 111/54 90 L Intake and Output 08/31/18 09/01/18 09/01/18 22:59 06:59 14:59 Intake Total 100 100 250 Balance 100 100 250 Intake: Oral 100 100 250 Other: Voiding Method Toilet Toilet Bedpan Bedpan Weight 42 kg PHYSICAL EXAMINATION: GENERAL: 48-year-old -[place]onegas[place] female in no acute distress at the time of my examination HEENT: Head is atraumatic, normocephalic. Pupils equal, round. Sclera anicteric. Conjunctiva are clear. Mucous membranes of the mouth are moist. Neck is supple. There is elevated jugular venous pressure. No carotid bruit is heard. HEART EXAMINATION: Heart S1 S2 1 systolic murmur is heard CHEST EXAMINATION: Lungs are clear with diminished air entry to bilateral bases ABDOMEN: Soft, nontender. Bowel sounds are heard. No organomegaly noted. EXTREMITIES: Patient has a right [id number] amputation and left below the knee amputation. NEUROLOGIC patient is awake, alert and oriented X3 . Results 09/01/18 03:50 09/01/18 03:50 Cardiac Enzymes 08/31/18 08/31/18 08/31/18 Range/Units 15:15 15:15 22:09 AST 85 H (14-36) U/L CK-MB (CK-2) 2.3 (0.0-2.4) ng/mL Troponin I 0.012 0.014 (0.000-0.034) ng/mL 09/01/18 09/01/18 Range/Units 03:50 03:50 AST 69 H (14-36) U/L CK-MB (CK-2) (0.0-2.4) ng/mL Troponin I 0.013 (0.000-0.034) ng/mL Coagulation 08/31/18 Range/Units 15:15 PT 11.2 (9.0-12.0) sec APTT 23.4 (22.0-30.0) sec CBC 08/31/18 09/01/18 Range/Units 15:15 03:50 WBC 5.7 5.1 (3.8-10.6) k/uL RBC 3.36 L 3.79 L (3.80-5.40) m/uL Hgb 9.9 L D 11.1 L (11.4-16.0) gm/dL Hct 30.6 L 35.5 (34.0-46.0) % Plt Count 373 328 (150-450) k/uL Comprehensive Metabolic Panel 08/31/18 09/01/18 Range/Units 15:15 03:50 Sodium 140 139 (137-145) mmol/L Potassium 4.0 4.3 (3.5-5.1) mmol/L Chloride 112 H 112 H (98-107) mmol/L Carbon Dioxide 18 L 18 L (22-30) mmol/L BUN 49 H 50 H (7-17) mg/dL Creatinine 2.38 H 2.36 H (0.52-1.04) mg/dL Glucose 91 78 (74-99) mg/dL Calcium 7.9 L 8.4 (8.4-10.2) mg/dL AST 85 H 69 H (14-36) U/L ALT 59 H 56 H (9-52) U/L Alkaline Phosphatase 261 H 257 H (38-126) U/L Total Protein 5.9 L 6.2 L (6.3-8.2) g/dL Albumin 2.3 L 2.4 L (3.5-5.0) g/dL Current Medications Generic Name Dose Route Start Last Admin Trade Name Freq PRN Reason Stop Dose Admin Aspirin 81 mg 09/01/18 09:00 09/01/18 09:13 Aspirin PO 81 mg DAILY DEIRDRE Administration Atorvastatin Calcium 40 mg 09/01/18 09:00 09/01/18 09:13 Lipitor PO 40 mg DAILY DEIRDRE Administration Clopidogrel Bisulfate 75 mg 09/01/18 09:00 09/01/18 09:13 Plavix PO 75 mg DAILY [facility] Administration Cyclobenzaprine HCl 10 mg 08/31/18 20:59 Flexeril PO TID PRN Muscle Spasm Diltiazem HCl 30 mg 08/31/18 22:00 09/01/18 09:13 Cardizem Oral PO 30 mg QID [facility] Administration Docusate Sodium 100 mg 08/31/18 20:59 Colace PO BID PRN Constipation Enoxaparin Sodium 40 mg 09/01/18 09:45 Lovenox SQ Q12H [facility] Furosemide 40 mg 09/01/18 00:00 09/01/18 09:14 Lasix IV 40 mg Q8HR [facility] Administration Heparin Sodium (Porcine) 5,000 unit 09/01/18 00:00 09/01/18 09:15 Heparin SQ 5,000 unit Q8HR [facility] Administration Hydralazine HCl 10 mg 08/31/18 22:00 09/01/18 09:13 Apresoline PO 10 mg TID [facility] Administration Sodium Chloride 1,000 mls @ 20 mls/hr 08/31/18 16:45 08/31/18 21:31 Saline 0.9% IV Not Given .Q24H [facility] Isosorbide Mononitrate 30 mg 09/01/18 09:00 09/01/18 09:13 Imdur PO 30 mg DAILY [facility] Administration Megestrol Acetate 400 mg 09/01/18 09:00 09/01/18 09:13 Megace PO 400 mg DAILY [facility] Administration Mirtazapine 30 mg 08/31/18 20:59 Remeron PO HS PRN Insomnia Morphine Sulfate 4 mg 08/31/18 15:18 Morphine Sulfate (Inj) IVP Q4HR PRN Pain Morphine Sulfate 100 mg 08/31/18 21:00 09/01/18 09:13 Ms Contin PO 100 mg Q12H [facility] Administration Oxybutynin Chloride 5 mg 08/31/18 22:00 09/01/18 09:14 Ditropan PO 5 mg TID DE[facility]RE Administration Pantoprazole Sodium 40 mg 09/01/18 09:00 09/01/18 09:13 Protonix PO 40 mg DAILY [facility] Administration Quetiapine Fumarate 25 mg 08/31/18 21:00 08/31/18 22:38 Seroquel PO 25 mg HS [facility] Administration Senna 8.6 mg 08/31/18 20:59 Senokot PO BID PRN Constipation Intake and Output 08/31/18 09/01/18 09/01/18 22:59 06:59 14:59 Intake Total 100 100 250 Balance 100 100 250 Intake: Oral 100 100 250 Other: Voiding Method Toilet Toilet Bedpan Bedpan Weight 42 kg 09/01/18 03:50 09/01/18 03:50 EKG Interpretations (text) EKG shows a sinus tachycardia with no acute changes. Assessment and Plan Plan: Assessment and plan #1 congestive cardiac failure, LV function unknown we will obtain an echocardiogram with Doppler study. 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 We will also closely monitor the patient's intake and output. We will discontinue the Cardizem and start the patient on a beta marcos. Not currently on an NOLVIA inhibitor because of renal function. Check TSH level. Further recommendations to follow. DNP note has been reviewed, I agree with a documented findings and plan of care. Patient was seen and examined.
[2018-09-01] MEDS: ENOXAPARIN 40 MG/0.4 ML SYRINGE SQ SCH ×2 (10:30→21:00)
--- NOTE | 2018-09-01 11:48 | ECHOF ---
Referral Reason:CHF? MEASUREMENTS -------- HEIGHT: 165.1 cm WEIGHT: 41.7 kg BP: 98/62 IVSd: 0.8 cm (0.6 - 1.1) LVIDd: 5.2 cm (3.9 - 5.3) LVPWd: 1.3 cm (0.6 - 1.1) IVSs: 0.9 cm LVIDs: 4.7 cm LVPWs: 1.3 cm LA Diam: 3.5 cm (2.7 - 3.8) LAESV Index (A-L): 42.73 ml/m Ao Diam: 3.0 cm (2.0 - 3.7) AV Cusp: 1.8 cm (1.5 - 2.6) LA Diam: 3.4 cm (2.7 - 3.8) MV EXCURSION: 21.171 mm (> 18.000) MV EF SLOPE: 137 mm/s (70 - 150) EPSS: 2.5 cm MV E Main: 0.69 m/s MV DecT: 49 ms MV A Main: 0.35 m/s MV E/A Ratio: 2.00 RAP: 5.00 mmHg RVSP: 29.84 mmHg FINDINGS -------- Sinus rhythm. This was a technically good study. The left ventricular size is normal. Left ventricular wall thickness is normal. There is severe g lobal hypokinesis of LV . Overall left ventricular systolic function is severely impaired with, an EF < 20%. The right ventricle is normal in size. The left atrial size is normal. LA is severely dilated >40 ml/m2 The right atrial size is normal. There is mild aortic valve sclerosis. There is no evidence of aortic regurgitation. Mild mitral annular calcification present. Mild mitral regurgitation is present. Mild tricuspid regurgitation present. There is no evidence of pulmonary hypertension. The right v entricular systolic pressure, as measured by Doppler, is 29.84mmHg. There is no pulmonic regurgitation present. There is no pericardial effusion. Small Pleural Effusion. CONCLUSIONS -------- 1. The left ventricular size is normal. 2. Left ventricular wall thickness is normal. 3. There is severe global hypokinesis of LV . 4. Overall left ventricular systolic function is severely impaired with, an EF < 20%. 5. The right ventricle is normal in size. 6. The left atrial size is normal. 7. LA is severely dilated >40 ml/m2 8. The right atrial size is normal. 9. There is mild aortic valve sclerosis. 10. Mild mitral annular calcification present. 11. Mild mitral regurgitation is present. 12. Mild tricuspid regurgitation present. 13. There is no evidence of pulmonary hypertension. 14. The right ventricular systolic pressure, as measured by Doppler, is 29.84mmHg. 15. There is no pulmonic regurgitation present. 16. There is no pericardial effusion. 17. Small Pleural Effusion. [employer]: Diane Gonzalez RDCS
[2018-09-01] MEDS: METOPROLOL TARTRATE 25 MG TAB PO SCH ×2 (12:51→20:59)
--- NOTE | 2018-09-01 12:51 | P.NPCON ---
History of Present Illness - Reason for Consult acute renal failure - History of Present Illness Reason for consultation: Acute kidney injury History of present illness: Patient is a 48-year-old female seen in renal consultation for acute kidney injury. Creatinine was 2.38 on admission and is 2.36 today. Patient presented to the hospital with dyspnea and cough. Chest x-ray was suggestive of fluid overload. Patient is noted to have systolic CHF with ejection fraction of less than 20%. Admits to good urine output. No hematuria or dysuria. Patient has a history of right renal infarct. She has history of stroke he platelet syndrome and is maintained on Lovenox. She follows with hematology out of [facility] [place]. Still admits to dyspnea. No vomiting or diarrhea. Denies use of NSAIDs. CAT scan done in July 2018 revealed no evidence of hydronephrosis. Currently maintained on Lasix 40 mg IV three times daily. Vital signs are stable. General: The patient appeared well nourished and normally developed. HEENT: Head exam is unremarkable. Neck is without jugular venous distension. LUNGS: Lungs are clear to auscultation and percussion. Breath sounds decreased. HEART: Rate and Rhythm are regular. First and second heart sounds normal. No murmurs, rubs or gallops. ABDOMEN: Abdominal exam reveals normal bowel sounds. Non-tender and non- distended. No evidence of peritonitis. EXTREMITITES: No clubbing, cyanosis, or edema. Bilateral BKA noted. Past Medical History Past Medical History: Asthma, Heart Failure, CVA/TIA, Deep Vein Thrombosis (DVT) , Osteoarthritis (OA), Pulmonary Embolus (PE), Renal Disease Additional Past Medical History / Comment(s): sticky platelet syndrome, bronchitis, anx/depression, falls History of Any Multi-Drug Resistant Organisms: None Reported Past Surgical History: Cholecystectomy, Coronary Bypass/CABG Additional Past Surgical History / Comment(s): ltBKA, left lower leg, aortic bypass right leg, right leg fasciotomy.pt stated had another vascular sx after the fasciotomy at [facility] unclear as to exactly what was done Rt BKA Past Anesthesia/Blood Transfusion Reactions: No Reported Reaction Additional Past Anesthesia/Blood Transfusion Reaction / Comment(s): pt stated has had a blood transfusion in past-no reaction Smoking Status: Former smoker - Past Family History Mother Additional Family Medical History / Comment(s): MS, legally blind, cataracts Father Additional Family Medical History / Comment(s): Was younger when he , car accident Medications and Allergies Home Medications Medication Instructions Recorded Confirmed Type HYDROmorphone HCL [Dilaudid] 8 mg PO Q8HR PRN 09/06/16 08/31/18 History Polyethylene Glycol 3350 [Miralax] 17 gm PO DAILY PRN 08/01/18 08/31/18 History Clopidogrel [Plavix] 75 mg PO DAILY tab 08/03/18 08/31/18 Rx Cyclobenzaprine [Flexeril] 10 mg PO TID PRN tab 08/03/18 08/31/18 Rx Mirtazapine [Remeron] 30 mg PO HS PRN tab 08/03/18 08/31/18 Rx Oxybutynin Chloride [Ditropan] 5 mg PO TID tab 08/03/18 08/31/18 Rx Aspirin EC [Ecotrin Low Dose] 81 mg PO DAILY 08/31/18 08/31/18 History Atorvastatin [Lipitor] 40 mg PO DAILY 08/31/18 08/31/18 History Diltiazem Oral [Cardizem Oral] 30 mg PO QID 08/31/18 08/31/18 History Docusate [Colace] 100 mg PO BID PRN 08/31/18 08/31/18 History Enoxaparin [Lovenox] 40 mg SQ Q12H 08/31/18 08/31/18 History Furosemide [Lasix] 10 mg PO DAILY 08/31/18 08/31/18 History Isosorbide Mononitrate ER [Imdur] 30 mg PO DAILY 08/31/18 08/31/18 History Megestrol [Megace] 400 mg PO DAILY 08/31/18 08/31/18 History Morphine Sulfate [Ms Contin] 100 mg PO Q12H 08/31/18 08/31/18 History Pantoprazole Sodium [Protonix] 40 mg PO DAILY 08/31/18 08/31/18 History QUEtiapine [SEROquel] 25 mg PO HS 08/31/18 08/31/18 History Sennosides [Senna] 8.6 mg PO BID PRN 08/31/18 08/31/18 History hydrALAZINE HCL 10 mg PO TID 08/31/18 08/31/18 History Allergies Allergy/AdvReac Type Severity Reaction Status Date / Time ibuprofen Allergy Unknown Verified 08/31/18 13:56 trazodone Allergy Chest Pain Verified 08/31/18 13:56 Physical Exam Vitals: Vital Signs Temp Pulse Pulse Resp BP BP Pulse Ox 09/01/18 08:00 97.6 F 61 16 110/83 100 09/01/18 04:00 98.0 F 116 H 16 112/82 94 L 08/31/18 23:36 130 H 16 08/31/18 23:34 97.9 F 130 H 16 128/83 100 08/31/18 20:00 97.7 F 120 H 18 130/97 97 08/31/18 19:15 128 H 18 128/98 97 08/31/18 18:00 132 H 18 128/98 98 08/31/18 16:00 134 H 18 135/94 98 08/31/18 15:30 140 H 18 124/86 08/31/18 15:20 135 H 08/31/18 15:08 130 H 08/31/18 15:00 134 H 18 128/97 08/31/18 14:30 135 H 18 128/97 08/31/18 14:21 128/97 08/31/18 13:31 97.6 F 65 18 111/54 90 L Intake and Output 08/31/18 09/01/18 09/01/18 22:59 06:59 14:59 Intake Total 100 100 250 Balance 100 100 250 Intake: Oral 100 100 250 Other: Voiding Method Toilet Toilet Bedpan Bedpan Weight 42 kg 42 kg Results - Lab Results Most recent lab results Calcium 8.4 mg/dL (8.4-10.2) 09/01/18 03:50 Magnesium 1.7 mg/dL (1.6-2.3) 08/31/18 15:15 09/01/18 03:50 09/01/18 03:50 Assessment and Plan Plan: Assessment: 1. Acute kidney injury secondary to ATN secondary to cardiorenal syndrome. Creatinine 2.36 today. 2. Volume overload. 3. Metabolic acidosis secondary to acute kidney injury. 4. Systolic CHF with ejection fraction of less than 20%. 5. 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 Plan: Maintain Lasix 40 mg IV 3 times daily for now. Avoid nephrotoxins. Check urinalysis. Check renal ultrasound. Add oral sodium bicarbonate. Repeat electrolytes the morning. Dose of Lovenox to be adjusted for renal function. Thank you for the consultation. I will continue to follow patient with you during her hospital stay.
--- NOTE | 2018-09-01 13:12 | CDI ---
Last Revision, October 2017 Documentation Clarification Form Date: 09/01/2018 1:06:00 PM From: Georgia AlbertoALYSON, CCDS Admit Date: 08/31/2018 4:44:00 PM Patient Name: Nel Linares Visit Number: [id number] Discharge Date: ATTENTION: The Clinical Documentation Specialists (CDI) and [facility] Coding Staff appreciate your assistance in clarifying documentation. Please respond to the clarification below the line at the bottom and electronically sign. The CDI & [facility] Coding staff will review the response and follow-up if needed. Please note: Queries are made part of the Legal Health Record. If you have any questions, please contact the author of this message via ITS. Anne Voss DO: A diagnosis of anemia lacks specificity to accurately reflect your patients severity of condition and clarification is needed. Per the cardiology consult and the subsequent attending progress note: anemia is documented with no specificity. History/Risk Factors: CAD, Hypertension, CHF, Asthma, DVT, PE, Sticky platelet syndrome. Clinical indicators: Presented with SOB with right sided CP radiating to right flank. Hemoglobin: 9.9* - 11.1 Hematocrit: 30.6 - 35.5 Treatment: IV Lasix, Albuterol INH, IV Morphine, O2 RA - 4Lnc In order to capture the severity of condition, please clarify the type of anemia and etiology if known: Acute on chronic blood loss anemia Chronic blood loss anemia Iron deficiency anemia Hemolytic anemia Drug induced anemia Nutritional anemia Anemia of chronic kidney disease Unable to determine Other, please specify UNABLE TO DETERMINE MTDD
[2018-09-01] MEDS ORDERED: MORPHINE ORAL SOLN 10 MG/5 ML CUP PO PRN (13:44)
[2018-09-01] MEDS: SODIUM BICARBONATE TAB 650 MG TAB PO SCH ×2 (14:51→21:00)
--- NOTE | 2018-09-01 17:07 | US ---
EXAMINATION TYPE: US kidneys/renal and bladder DATE OF EXAM: 09/01/2018 COMPARISON: CT 06/28/2018 CLINICAL HISTORY: cesar. EXAM MEASUREMENTS: Right Kidney: 9.5 x 3.3 x 5.0 cm Left Kidney: 9.5 x 5.7 x 4.5 cm Small amount of ff seen in RUQ. Right Kidney: echogenic foci seen anterior to or in superior portion of kidney measuring 0.8 x 0.3 x 0.3cm, lower pole partially obscured by bowel gas. Left Kidney: Superior pole and inferior pole obscured by extensive overlying bowel gas Bladder: limited visualization due to sitting low in pelvis and high pelvic bone, some possible debri s in bladder Bilateral Jets seen: Normal Post Void Residual: Calcification is present along the right kidney as noted on CT laterally. Cortical echotexture somewh at heterogeneous bilaterally. IMPRESSION: Exam is limited. No evident hydronephrosis. Heterogeneous cortical echotexture could be related to se quela of renal infarct, medical renal disease.
[2018-09-01] MEDS: SODIUM CHLORIDE 0.9% 1,000 ML IV SCH (18:47)
--- NOTE | 2018-09-01 20:39 | P.CONS ---
History of Present Illness - Reason for Consult Consult date: 09/01/18 - Chief Complaint shortness of breath - History of Present Illness 48-year-old Afro-Iranian woman presents to Hospital with significant shortness of breath and increasing weakness. 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 She had acute kidney injury with concerns to renal infarction and constantly she was transferred to [facility] where she's received her care regarding her many medical troubles. She previously had severe arterial disease also is noted by the lower extremity amputations and the notation of angiography, and aorto femoral bypasses. The patient is cared for by her mother in the home setting. She is requiring total care and although she is conversational the content of her speech is quite poor at this time. She relates that she is not very uncomfortable. Her shortness of breath is improved. She is being treated for new congestive heart failure and is feeling better. There is evidence of pressure ulceration to the coccyx for which the consultation has been requested. Apparently it started after her recent stay at the outside hospital. Review of Systems 48-year-old woman who looks considerably older than her stated age she has cachexia HEENT:Denies headache or acute visual change. Denies sinus or mouth discomforts. Denies neck stiffness or pain. Denies significant oral cavity pain. Denies difficulty on swallowing. Lungs: At admission has severe shortness of breath but no cough sputum production or hemoptysis Cardiovascular: Her shortness of breath is improved since admission, does have shortness of breath with activities No syncope is been noted Gastrointestinal:Denies nausea, vomiting, diarrhea, constipation, hematemesis, melena, hematochezia. No no significant change of bowel habit noticed. Musculoskeletal: denies significant myalgias or arthralgias. No new joint swelling. Denies new back pain. Skin: Denies new rash or lesions. No new ulcers or wounds are related.. Neuro: Denies headache or visual change. Denies any new onset weakness or difficulty with ambulation. Denies falls or seizures. Psychiatric: Is chronically on pain medications and Seroquel. Endocrine: Progressive fatigue progressive weight loss Past Medical History Past Medical History: Asthma, Heart Failure, CVA/TIA, Deep Vein Thrombosis (DVT) , Osteoarthritis (OA), Pulmonary Embolus (PE), Renal Disease Additional Past Medical History / Comment(s): sticky platelet syndrome, bronchitis, anx/depression, falls History of Any Multi-Drug Resistant Organisms: None Reported Past Surgical History: Cholecystectomy, Coronary Bypass/CABG Additional Past Surgical History / Comment(s): ltBKA, left lower leg, aortic bypass right leg, right leg fasciotomy.pt stated had another vascular sx after the fasciotomy at [facility] unclear as to exactly what was done Rt BKA Past Anesthesia/Blood Transfusion Reactions: No Reported Reaction Additional Past Anesthesia/Blood Transfusion Reaction / Comm: pt stated has had a blood transfusion in past-no reaction Additional Psychological History / Comment(s): Is cared for by her mother and of private residence. That a current tobacco smoker. Multiple tattoos. The experience. no travel. No animal exposures Smoking Status: Former smoker - Past Family History Mother Additional Family Medical History / Comment(s): MS, legally blind, cataracts Father Additional Family Medical History / Comment(s): Was younger when he , car accident Medications and Allergies Home Medications and Allergies Comment(s): Current Medications Aspirin (Aspirin) 81 mg PO DAILY [facility] Last Admin: 09/01/18 09:13 Dose: 81 mg Atorvastatin Calcium (Lipitor) 40 mg PO DAILY [facility] Last Admin: 09/01/18 09:13 Dose: 40 mg Clopidogrel Bisulfate (Plavix) 75 mg PO DAILY [facility] Last Admin: 09/01/18 09:13 Dose: 75 mg Cyclobenzaprine HCl (Flexeril) 10 mg PO TID PRN PRN Reason: Muscle Spasm Docusate Sodium (Colace) 100 mg PO BID PRN PRN Reason: Constipation Enoxaparin Sodium (Lovenox) 40 mg SQ Q12H [facility] Last Admin: 09/01/18 10:30 Dose: Not Given Furosemide (Lasix) 40 mg IV Q8HR [facility] Last Admin: 09/01/18 18:57 Dose: 40 mg Hydralazine HCl (Apresoline) 10 mg PO TID [facility] Last Admin: 09/01/18 18:48 Dose: Not Given Sodium Chloride (Saline 0.9%) 1,000 mls @ 20 mls/hr IV .Q24H [facility] Last Admin: 09/01/18 18:47 Dose: Not Given Isosorbide Mononitrate (Imdur) 30 mg PO DAILY [facility] Last Admin: 09/01/18 09:13 Dose: 30 mg Megestrol Acetate (Megace) 400 mg PO DAILY [facility] Last Admin: 09/01/18 09:13 Dose: 400 mg Metoprolol Tartrate (Lopressor) 25 mg PO BID [facility] Last Admin: 09/01/18 12:51 Dose: 25 mg Mirtazapine (Remeron) 30 mg PO HS PRN PRN Reason: Insomnia Morphine Sulfate (Ms Contin) 100 mg PO Q12H [facility] Last Admin: 09/01/18 09:13 Dose: 100 mg Morphine Sulfate (Morphine Oral Gwendolyn 2mg/Ml) 12 mg PO Q4HR PRN PRN Reason: Pain Oxybutynin Chloride (Ditropan) 5 mg PO TID [facility] Last Admin: 09/01/18 18:57 Dose: 5 mg Pantoprazole Sodium (Protonix) 40 mg PO DAILY [facility] Last Admin: 09/01/18 09:13 Dose: 40 mg Quetiapine Fumarate (Seroquel) 25 mg PO HS [facility] Last Admin: 08/31/18 22:38 Dose: 25 mg Senna (Senokot) 8.6 mg PO BID PRN PRN Reason: Constipation Sodium Bicarbonate (Sodium Bicarbonate Tab) 650 mg PO BID [facility] Last Admin: 09/01/18 14:51 Dose: Not Given Home Medications Medication Instructions Recorded Confirmed Type HYDROmorphone HCL [Dilaudid] 8 mg PO Q8HR PRN 09/06/16 08/31/18 History Polyethylene Glycol 3350 [Miralax] 17 gm PO DAILY PRN 08/01/18 08/31/18 History Clopidogrel [Plavix] 75 mg PO DAILY tab 08/03/18 08/31/18 Rx Cyclobenzaprine [Flexeril] 10 mg PO TID PRN tab 08/03/18 08/31/18 Rx Mirtazapine [Remeron] 30 mg PO HS PRN tab 08/03/18 08/31/18 Rx Oxybutynin Chloride [Ditropan] 5 mg PO TID tab 08/03/18 08/31/18 Rx Aspirin EC [Ecotrin Low Dose] 81 mg PO DAILY 08/31/18 08/31/18 History Atorvastatin [Lipitor] 40 mg PO DAILY 08/31/18 08/31/18 History Diltiazem Oral [Cardizem Oral] 30 mg PO QID 08/31/18 08/31/18 History Docusate [Colace] 100 mg PO BID PRN 08/31/18 08/31/18 History Enoxaparin [Lovenox] 40 mg SQ Q12H 08/31/18 08/31/18 History Furosemide [Lasix] 10 mg PO DAILY 08/31/18 08/31/18 History Isosorbide Mononitrate ER [Imdur] 30 mg PO DAILY 08/31/18 08/31/18 History Megestrol [Megace] 400 mg PO DAILY 08/31/18 08/31/18 History Morphine Sulfate [Ms Contin] 100 mg PO Q12H 08/31/18 08/31/18 History Pantoprazole Sodium [Protonix] 40 mg PO DAILY 08/31/18 08/31/18 History QUEtiapine [SEROquel] 25 mg PO HS 08/31/18 08/31/18 History Sennosides [Senna] 8.6 mg PO BID PRN 08/31/18 08/31/18 History hydrALAZINE HCL 10 mg PO TID 08/31/18 08/31/18 History Allergies Allergy/AdvReac Type Severity Reaction Status Date / Time ibuprofen Allergy Unknown Verified 08/31/18 13:56 trazodone Allergy Chest Pain Verified 08/31/18 13:56 Physical Exam Vitals: Vital Signs Temp Pulse Resp BP Pulse Ox 09/01/18 16:00 97.4 F L 97 16 124/87 94 L 09/01/18 12:00 105 H 16 100/73 94 L 09/01/18 08:00 97.6 F 113 H 16 110/83 100 09/01/18 04:00 98.0 F 116 H 16 112/82 94 L 08/31/18 23:36 130 H 16 08/31/18 23:34 97.9 F 130 H 16 128/83 100 Intake and Output 09/01/18 09/01/18 09/01/18 06:59 14:59 22:59 Intake Total 100 490 Output Total 270 Balance 100 490 -270 Intake: Oral 100 490 Output: Urine 270 Uretheral (Joyce) 270 Other: Voiding Method Toilet Toilet Toilet Bedpan Bedpan Bedpan # Voids 1 Weight 42 kg 42 kg 48-year-old woman who looks considerably older than her stated age she is cachectic HEENT: Anicteric conjunctiva are pink and moist nasal mucosa grossly intact without significant lesions, there is no thrush. Full dentures in place Neck: The neck is supple without significant lymphadenopathy or thyromegaly. Lungs: Symmetrical air entry is noted there are few expiratory wheezes basilar crackles are noted Heart: Regular audible S1 and S2 soft S4 2/6 systolic murmur left sternal border , nondisplaced PMI no heave or thrill Abdomen: Positive bowel sounds soft and nontender without palpable masses or organomegaly. There was no guarding or rebound. Extremities: Upper extremities intact IV site is without difficulty. Looks reveal evidence of the prior amputations the amputation sites are well-healed. Skin evidence of the stage II pressure ulceration present on admission to the [facility]. There is not significant drainage at this time it is minimally tender. No other ulcerations are seen. Neuro: Awake alert oriented to person may be oriented to place but thought she was at [facility] and then [facility]. She moves extremities freely struggles with commands. Upon arrival she had been eating her dinner and a large amount of the food actually was in her bed with her. Results CBC & Chem 7: 09/01/18 03:50 09/01/18 03:50 Labs: Abnormal Lab Results - Last 24 Hours (Table) 09/01/18 09/01/18 Range/Units 03:50 03:50 RBC 3.79 L (3.80-5.40) m/uL Hgb 11.1 L (11.4-16.0) gm/dL RDW 17.8 H (11.5-15.5) % Chloride 112 H (98-107) mmol/L Carbon Dioxide 18 L (22-30) mmol/L BUN 50 H (7-17) mg/dL Creatinine 2.36 H (0.52-1.04) mg/dL AST 69 H (14-36) U/L ALT 56 H (9-52) U/L Alkaline Phosphatase 257 H (38-126) U/L Total Protein 6.2 L (6.3-8.2) g/dL Albumin 2.4 L (3.5-5.0) g/dL Laboratory Results WBC 5.1 k/uL (3.8-10.6) 09/01/18 03:50 RBC 3.79 m/uL (3.80-5.40) L 09/01/18 03:50 Hgb 11.1 gm/dL (11.4-16.0) L 09/01/18 03:50 Hct 35.5 % (34.0-46.0) 09/01/18 03:50 MCV 93.8 fL (80.0-100.0) 09/01/18 03:50 MCH 29.2 pg (25.0-35.0) 09/01/18 03:50 MCHC 31.2 g/dL (31.0-37.0) 09/01/18 03:50 RDW 17.8 % (11.5-15.5) H 09/01/18 03:50 Plt Count 328 k/uL (150-450) 09/01/18 03:50 Neutrophils % 62 % 09/01/18 03:50 Lymphocytes % 31 % 09/01/18 03:50 Monocytes % 5 % 09/01/18 03:50 Eosinophils % 1 % 09/01/18 03:50 Basophils % 1 % 09/01/18 03:50 Neutrophils # 3.2 k/uL (1.3-7.7) 09/01/18 03:50 Lymphocytes # 1.6 k/uL (1.0-4.8) 09/01/18 03:50 Monocytes # 0.3 k/uL (0-1.0) 09/01/18 03:50 Eosinophils # 0.1 k/uL (0-0.7) 09/01/18 03:50 Basophils # 0.0 k/uL (0-0.2) 09/01/18 03:50 Manual Slide Review Performed 09/01/18 03:50 Hypochromasia Moderate 09/01/18 03:50 Anisocytosis Slight 09/01/18 03:50 PT 11.2 sec (9.0-12.0) 08/31/18 15:15 INR 1.2 (<1.2) H 08/31/18 15:15 APTT 23.4 sec (22.0-30.0) 08/31/18 15:15 Sodium 139 mmol/L (137-145) 09/01/18 03:50 Potassium 4.3 mmol/L (3.5-5.1) 09/01/18 03:50 Chloride 112 mmol/L (98-107) H 09/01/18 03:50 Carbon Dioxide 18 mmol/L (22-30) L 09/01/18 03:50 Anion Gap 9 mmol/L 09/01/18 03:50 BUN 50 mg/dL (7-17) H 09/01/18 03:50 Creatinine 2.36 mg/dL (0.52-1.04) H 09/01/18 03:50 Est GFR (CKD-EPI)AfAm 27 (>60 ml/min/1.73 sqM) 09/01/18 03:50 Est GFR (CKD-EPI)NonAf 23 (>60 ml/min/1.73 sqM) 09/01/18 03:50 Glucose 78 mg/dL (74-99) 09/01/18 03:50 Calcium 8.4 mg/dL (8.4-10.2) 09/01/18 03:50 Magnesium 1.7 mg/dL (1.6-2.3) 08/31/18 15:15 Total Bilirubin 0.4 mg/dL (0.2-1.3) 09/01/18 03:50 AST 69 U/L (14-36) H 09/01/18 03:50 ALT 56 U/L (9-52) H 09/01/18 03:50 Alkaline Phosphatase 257 U/L (38-126) H 09/01/18 03:50 Total Creatine Kinase 36 U/L (30-135) 08/31/18 15:15 CK-MB (CK-2) 2.3 ng/mL (0.0-2.4) 08/31/18 15:15 CK-MB (CK-2) Rel Index 6.4 08/31/18 15:15 Troponin I 0.013 ng/mL (0.000-0.034) 09/01/18 03:50 NT-Pro-B Natriuret Pep [id number] pg/mL 08/31/18 15:15 Total Protein 6.2 g/dL (6.3-8.2) L 09/01/18 03:50 Albumin 2.4 g/dL (3.5-5.0) L 09/01/18 03:50 TSH 1.220 mIU/L (0.465-4.680) 09/01/18 03:50 Assessment and Plan (1) Acute pulmonary edema Current Visit: Yes Status: Acute Code(s): J81.0 - ACUTE PULMONARY EDEMA SNOMED Code(s): 87470260 (2) Sticky platelet syndrome Current Visit: Yes Status: Acute Code(s): D69.1 - QUALITATIVE PLATELET DEFECTS SNOMED Code(s): 694039106 (3) PVD (peripheral vascular disease) Current Visit: Yes Status: Acute Code(s): I73.9 - PERIPHERAL VASCULAR DISEASE, UNSPECIFIED SNOMED Code(s): 499874794 (4) Pressure ulcer of coccygeal region, stage 2 Narrative/Plan: 48-year-old woman presents to the emergency center with the shortness of breath which is now improved after admission and diuretic therapy. The urologic evaluation failure evidence of any obstruction at this time. Her pain is well controlled. She has a difficulty with her affect however the mother is not concerned appears to be about her baseline. Patient is evidence of the stage II pressure ulceration present on admission of her coccyx. Theoptifoam border dressing will be utilized to protect this area. Chest x-ray was evaluated revealing evidence of congestive heart failure but no azucena pneumonic infiltrates. The coccyx ulceration is not infected this time and no need for antibiotic therapy. Current Visit: Yes Status: Acute Code(s): L89.152 - PRESSURE ULCER OF SACRAL REGION, STAGE 2 SNOMED Code(s): 139360725
[2018-09-01] MEDS: QUEtiapine 25 MG TAB PO SCH (21:00)
[2018-09-01 21:21] LABS: Appearance,Urine Clear (Clear); Bilirubin,Urine Negative (Negative); Blood,Urine Negative (Negative); Color,Urine Light Yellow; Glucose,Urine (UA) Negative (Negative); Ketones,Urine Negative (Negative); Leukocyte Esterase,Urine Negative (Negative); Nitrite,Urine Negative (Negative); Protein,Urine Negative (Negative); Specific Gravity,Urine 1.007 (1.001-1.035); Urobilinogen,Urine <2.0 mg/dL (<2.0)
--- NOTE | 2018-09-02 08:32 | CDI ---
Last Revision, October 2017 Documentation Clarification Form Date: 09/02/2018 8:19:16 AM From: Georgia AlbertoALYSON, CCDS Admit Date: 08/31/2018 4:44:00 PM Patient Name: Nel Linares Visit Number: [id number] Discharge Date: ATTENTION: The Clinical Documentation Specialists (CDI) and [facility] Coding Staff appreciate your assistance in clarifying documentation. Please respond to the clarification below the line at the bottom and electronically sign. The CDI & [facility] Coding staff will review the response and follow-up if needed. Please note: Queries are made part of the Legal Health Record. If you have any questions, please contact the author of this message via ITS. Bill Hendrixbh, DO: 48 yo female, presented with SOB & right sided chest & flank pain. Diagnosed with new onset of CHF & acute hypoxic respiratory failure, started on IV diuretics w/strict I&Os & telemetry. History/Risk Factors: Recently admitted a month ago with MOE & concern for right renal infarct. Clinical Indicators: Nephrology consult for MOE: "MOE secondary to ATN secondary to cardiorenal syndrome. Admission BUN/Cr/GFR: 49/2.38/23 Current BUN/CR/GFR: 50/2.36/23 Patients Baseline Creatinine was 2.04 in July per attending documentation (09/01 PN) Treatment: IV Lasix, IV Ms, IV fl rate 20, Albuterol INH, Telemetry & strict I& Os. In order to capture the severity of condition, please clarify if the condition signifies: CKD Stage 1 (GFR > 90) CKD Stage 2 (GFR 60-89) CKD Stage 3 (GFR 30-59) CKD Stage 4 (GFR 15-29) CKD Stage 5 (GFR <15) Other, please specify Unable to determine AKI; unable to determine if ckd at this time. MTDD
[2018-09-02] MEDS: ENOXAPARIN 40 MG/0.4 ML SYRINGE SQ SCH (09:23)
[2018-09-02] MEDS: OXYBUTYNIN CHLORIDE 5 MG TAB PO SCH ×3 (09:23→21:31)
[2018-09-02] MEDS: PANTOPRAZOLE 40 MG TABLET PO SCH (09:23)
[2018-09-02] MEDS: CLOPIDOGREL 75 MG TAB PO SCH (09:23)
[2018-09-02] MEDS: METOPROLOL TARTRATE 25 MG TAB PO SCH ×2 (09:23→21:30)
[2018-09-02] MEDS: SODIUM BICARBONATE TAB 650 MG TAB PO SCH ×2 (09:23→21:30)
[2018-09-02] MEDS: ATORVASTATIN 40 MG TAB PO SCH (09:23)
[2018-09-02] MEDS: ISOSORBIDE MONONITRATE ER 30 MG TAB.ER.24H PO SCH (09:23)
[2018-09-02] MEDS: ASPIRIN 81 MG PO SCH (09:23)
[2018-09-02] MEDS: MEGESTROL 400 MG/10 ML CUP PO SCH (09:24)
[2018-09-02] MEDS: FUROSEMIDE 10 MG/ML 4 ML VIAL IV SCH ×3 (09:24→21:31)
[2018-09-02] MEDS: MORPHINE SULFATE ER 100 MG TABLET PO SCH ×2 (09:24→21:30)
--- NOTE | 2018-09-02 10:21 | P.PN ---
Subjective Progress Note Date: 09/02/18 Principal diagnosis: Shortness of breath Patient is a 48-year-old -[place] female with a history of sticky platelet syndrome, multiple DVTs, pulmonary embolism, and peripheral arterial disease who presented in with right-sided chest pain and shortness of breath. In the ER she underwent an extensive evaluation. On arrival her vital signs showed a slight hypoxemia with an O2 sat of 90% on room air. Laboratory analysis showed a hyperchloremic metabolic acidosis as well as an elevated creatinine at 2.38. She had slightly elevated liver enzymes. A BNP was 127, 000. Initial troponin was negative. EKG did not show any signs of acute ischemia. She was given a dose of morphine, Lasix, and DuoNeb. Arrangements were made for admission. She was found to have pulmonary edema and her Lasix was continued. Cardiology was consulted and echocardiogram was ordered. Her EF was found to be low at less than 20%. Cardio transitioned her to metoprolol. Her BP was low the morning of 09/02 and he hydralazine was held. Patient seen and examined at bedside. Feeling better today than yesterday. Breathing is better but not back to baseline. Still with some chest heviness but improved. No nausea, no constipation. All questions answered and results of echo discussed. Objective - Vital Signs Vital signs: Vital Signs Temp 97.6 F 09/02/18 04:00 Pulse 105 H 09/02/18 04:00 Resp 18 09/02/18 04:00 BP 118/62 09/02/18 04:00 Pulse Ox 93 L 09/02/18 04:00 Intake & Output 09/01/18 09/02/18 09/02/18 18:59 06:59 18:59 Intake Total 490 Output Total 2570 Balance 490 -2570 Weight 42 kg 41 kg Intake: Oral 490 Output: Urine 2570 Uretheral (Joyce) 1420 Other: Voiding Method Toilet Toilet Bedpan Bedpan Indwelling Catheter # Voids 1 - Exam General: Non toxic, no distress, appears at stated age, cachectic Derm: Pressure ulcer over the sacral area with mild drainage and some blood, not malodorous, warm, dry Head: atraumatic, normocephalic, symmetric Eyes: EOMI, no lid lag, anicteric sclera Mouth: no lip lesion, mucus membranes moist Cardiovascular: S1S2 reg, no murmur, no JVD Lungs: Coarse breath sounds bilateral, no rhonchi, no rales , no accessory muscle use Abdominal: soft, nontender to palpation, no guarding, no appreciable organomegaly Ext: gross muscle atrophy of hip flexors, 2+ edema R LE, no contractures, LLE AKA and RLE BKA Neuro: CN II-XI grossly intact, no focal neuro deficits Psych: Alert, oriented, appropriate affect - Labs CBC & Chem 7: 09/01/18 03:50 09/01/18 03:50 Assessment and Plan Assessment: Acute systolic CHF with EF <20% -Continue with Lasix -on metoprolol, stop hydralazine due to hypotension, no ACEI due to MOE and increased Cr, on imdur -Has anemia and will check iron studies. - TSH normal Arrhythmia - continue tele - await cardio review Acute kidney injury with possible chronic kidney disease, baseline creatinine 2.04 in July but have been normal before that, likely component of cardiorenal syndrome. -Avoid nephrotoxic agents other than Lasix which as needed to optimize fluid status - nephrorecs appreciated - follow BMP closely with diuresis Sticky platelet syndrome, with recent renal infract - continue lovenox - follow with heme/onc out of [facility] Severe protein calorie malnutrition - continue megace... Needs to d/w heme onc and outpatient as it increases risk of thromboembolism - dietitian jose PAD, CAD - ASA, Plavix, imdur Mild transaminitis - chronic in nature - continued outpatient evaluation Chronic anemia - follow-up as outpatient, appears better than baseline - check iron studies. Stage II Sacral pressure ulcer, POA - off loading - Dr. Emigdio garcia appreciated,optifoam dressing DVT prophylaxis: Lovenox Discussed with: Patient Anticipated discharge: 48-[address]: home with home health A total of 35 minutes was spent on the care of this complex patient more than 50 % of the time was spent in counseling and care coordination.
--- NOTE | 2018-09-02 12:02 | P.PN ---
Subjective Progress Note Date: 09/02/18 This is a 48-year-old -[place] female with history of prior CVA, asthma , prior DVT, prior pulmonary embolism, she has history of PAD with a right above -the-knee amputation and a left below the knee amputation, prior history of smoking, who presented to the hospital on this occasion with symptoms of progressively worsening shortness of breath. Chest x-ray on admission showed findings consistent with cardiogenic pulmonary edema and bilateral effusions. EKG shows a sinus tachycardia with nonspecific ST-T wave changes. Blood pressure on arrival here 110/50 with a heart rate in the 60s, this morning's blood pressure 110/80 with a heart rate in the 60s, patient was noted on review of her rhythm strips to have some sinus tachycardia. White blood cell count 5.1 , hemoglobin 11.1, platelet count 328. Sodium 139, potassium 4.3, BUN 50, creatinine 2.3. Troponins 0.012, 0.014, 0.013. BNP level 127,000. At the time of my examination this morning, patient is lying flat in bed, doesn't complain of significant shortness of breath, but states with minimal exertion she does get quite short of breath. 09/02/2018 Patient was seen and examined this morning, she is feeling somewhat better today. Blood pressure 118/60, heart rate 105. 93% on room air. Patient noted to have episodes of sinus tachycardia on the monitor. White blood cell count 5.1, hemoglobin 11.1, platelet count 328. Sodium 139, potassium 4.3, BUN 50, creatinine 2.3. Liver enzymes improving. Patient continues to be on Lasix 40 mg IV every 8 hourly. Echocardiogram with Doppler study was performed which revealed an ejection fraction of less than 20%. Patient is not currently on an NOLVIA inhibitor because of abnormal renal function. We will continue current dose of IV Lasix. Repeat chest x-ray. Objective - Vital Signs Vital signs: Vital Signs Temp 97.6 F 09/02/18 04:00 Pulse 105 H 09/02/18 04:00 Resp 18 09/02/18 04:00 BP 118/62 09/02/18 04:00 Pulse Ox 93 L 09/02/18 04:00 Intake & Output 09/01/18 09/02/18 09/02/18 18:59 06:59 18:59 Intake Total 490 Output Total 2570 Balance 490 -2570 Weight 42 kg 41 kg Intake: Oral 490 Output: Urine 2570 Uretheral (Joyce) 1420 Other: Voiding Method Toilet Toilet Bedpan Bedpan Indwelling Catheter # Voids 1 - Exam PHYSICAL EXAMINATION: GENERAL: 48-year-old -[place] female in no acute distress at the time of my examination HEENT: Head is atraumatic, normocephalic. Pupils equal, round. Sclera anicteric. Conjunctiva are clear. Mucous membranes of the mouth are moist. Neck is supple. There is elevated jugular venous pressure. No carotid bruit is heard. HEART EXAMINATION: Heart S1 S2 1 systolic murmur is heard CHEST EXAMINATION: Lungs are clear with diminished air entry to bilateral bases ABDOMEN: Soft, nontender. Bowel sounds are heard. No organomegaly noted. EXTREMITIES: Patient has a right [id number] amputation and left below the knee amputation. NEUROLOGIC patient is awake, alert and oriented X3 - Labs CBC & Chem 7: 09/01/18 03:50 09/01/18 03:50 Assessment and Plan Plan: Assessment and plan #1 congestive cardiac failure, LV function unknown we will obtain an echocardiogram with Doppler study. #2 history of sticky platelet syndrome with multiple DVTs and pulmonary embolism #3 PAD with prior right sbrql-epl-kakl amputation and left below the knee amputation #4 hypertension #5 history of nicotine dependence #6 chronic anemia #7 acute on chronic kidney injury Plan Echocardiogram with Doppler study was performed which revealed an ejection fraction of less than 20%. We will continue current dose of IV Lasix, continue beta marcos. Patient is currently not on an NOLVIA inhibitor because of abnormal renal function. We will continue to monitor the patient's intake and output along with daily weights and daily lytes BUN and creatinine. DNP note has been reviewed, I agree with a documented findings and plan of care. Patient was seen and examined.
--- NOTE | 2018-09-02 13:34 | P.PN ---
Subjective Patient is seen in follow-up for acute kidney injury. Baseline creatinine is 1. It was elevated at 2.38 on admission and is 2.36 today. Patient presented with dyspnea. She is noted to have systolic CHF with ejection fraction of less than 20%. She is maintained on Lasix 40 mg IV 3 times daily. She is nonoliguric. Urinalysis is benign. Still admits to labored breathing. Vital signs are stable. General: The patient appeared well nourished and normally developed. HEENT: Head exam is unremarkable. Neck is without jugular venous distension. LUNGS: Lungs are clear to auscultation and percussion. Breath sounds decreased. HEART: Rate and Rhythm are regular. First and second heart sounds normal. No murmurs, rubs or gallops. ABDOMEN: Abdominal exam reveals normal bowel sounds. Non-tender and non- distended. No evidence of peritonitis. EXTREMITITES: Bilateral lower extremity amputations noted. Objective - Vital Signs Vital signs: Vital Signs Temp 97.3 F L 09/02/18 08:00 Pulse 109 H 09/02/18 12:00 Resp 16 09/02/18 12:00 BP 95/67 09/02/18 08:00 Pulse Ox 99 09/02/18 08:00 Intake & Output 09/01/18 09/02/18 09/02/18 18:59 06:59 18:59 Intake Total 490 Output Total 2570 Balance 490 -2570 Weight 42 kg 41 kg Intake: Oral 490 Output: Urine 2570 Uretheral (Joyce) 1420 Other: Voiding Method Toilet Toilet Indwelling Catheter Bedpan Bedpan Indwelling Catheter # Voids 1 - Labs CBC & Chem 7: 09/01/18 03:50 09/01/18 03:50 Assessment and Plan Plan: Assessment: 1. Acute kidney injury secondary to ATN secondary to cardiorenal syndrome. Creatinine 2.36 as of yesterday. Urinalysis is benign. No evidence of hydronephrosis noted on renal ultrasound. 2. Volume overload. Improving with diuresis. 3. Metabolic acidosis secondary to acute kidney injury. 4. Systolic CHF with ejection fraction of less than 20%. 5. 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 Plan: Maintain Lasix 40 mg IV 3 times daily for now. Avoid nephrotoxins. Maintain oral sodium bicarbonate. Repeat electrolytes the morning.
[2018-09-02] MEDS: SODIUM CHLORIDE 0.9% 250 ML IV SCH ×4 (17:37→18:07)
[2018-09-02] MEDS: SODIUM CHLORIDE 0.9% 1,000 ML IV SCH (17:38)
[2018-09-02] MEDS: hydrALAZINE HCL 10 MG TAB PO SCH (18:08)
[2018-09-02] MEDS: QUEtiapine 25 MG TAB PO SCH (21:31)
[2018-09-03 06:55] LABS: Anisocytosis Slight; HGB 10.4 gm/dL (11.4-16.0); Hypochromasia Moderate; MCH 29.1 pg (25.0-35.0); MCHC 31.5 g/dL (31.0-37.0); MCV 92.5 fL (80.0-100.0); Mean Platelet Volume 7.5; Platelet Count 306 k/uL (150-450); RBC 3.57 m/uL (3.80-5.40); RDW 17.7 % (11.5-15.5); WBC 7.3 k/uL (3.8-10.6)
[2018-09-03 07:05] LABS: Calcium 8.1 mg/dL (8.4-10.2); Magnesium 1.6 mg/dL (1.6-2.3); Potassium 5.1 mmol/L (3.5-5.1)
[2018-09-03 07:20] LABS: Glucose,Whole Blood 49 mg/dL (75-99)
[2018-09-03 07:39] LABS: Glucose,Whole Blood 51 mg/dL (75-99)
[2018-09-03 08:11] LABS: Glucose,Whole Blood 105 mg/dL (75-99)
[2018-09-03] MEDS: ISOSORBIDE MONONITRATE ER 30 MG TAB.ER.24H PO SCH (09:09)
[2018-09-03] MEDS: METOPROLOL TARTRATE 25 MG TAB PO SCH (09:09)
[2018-09-03] MEDS: MORPHINE SULFATE ER 100 MG TABLET PO SCH ×2 (09:10→22:15)
[2018-09-03] MEDS: ENOXAPARIN 40 MG/0.4 ML SYRINGE SQ SCH (09:15)
[2018-09-03] MEDS: SODIUM BICARBONATE TAB 650 MG TAB PO SCH ×2 (09:15→22:16)
[2018-09-03] MEDS: MEGESTROL 400 MG/10 ML CUP PO SCH (09:15)
[2018-09-03] MEDS: OXYBUTYNIN CHLORIDE 5 MG TAB PO SCH ×3 (09:16→22:16)
[2018-09-03] MEDS: CLOPIDOGREL 75 MG TAB PO SCH (09:16)
[2018-09-03] MEDS: ATORVASTATIN 40 MG TAB PO SCH (09:16)
[2018-09-03] MEDS: FUROSEMIDE 10 MG/ML 4 ML VIAL IV SCH ×2 (09:16→22:15)
[2018-09-03] MEDS: PANTOPRAZOLE 40 MG TABLET PO SCH (09:16)
[2018-09-03] MEDS: ASPIRIN 81 MG PO SCH (09:16)
--- NOTE | 2018-09-03 11:04 | P.PN ---
Subjective Progress Note Date: 09/03/18 Principal diagnosis: Shortness of breath Patient is a 48-year-old -[place] female with a history of sticky platelet syndrome, multiple DVTs, pulmonary embolism, and peripheral arterial disease who presented in with right-sided chest pain and shortness of breath. In the ER she underwent an extensive evaluation. On arrival her vital signs showed a slight hypoxemia with an O2 sat of 90% on room air. Laboratory analysis showed a hyperchloremic metabolic acidosis as well as an elevated creatinine at 2.38. She had slightly elevated liver enzymes. A BNP was 127, 000. Initial troponin was negative. EKG did not show any signs of acute ischemia. She was given a dose of morphine, Lasix, and DuoNeb. Arrangements were made for admission. She was found to have pulmonary edema and her Lasix was continued. Cardiology was consulted and echocardiogram was ordered. Her EF was found to be low at less than 20%. Cardio transitioned her to metoprolol. Her BP was low the morning of 09/02 and he hydralazine was stopped. Her BP was again low on the morning of 09/03 and her metoprolol was held. Patient seen and examined at bedside. Feeling slightly more short of breath and having increased chest pressure. No nausea, vomiting, or diarrhea. Had a long discussion is willing to go to [facility] facility at discharge. Patient does seem to be rather euphoric. Objective - Vital Signs Vital signs: Vital Signs Temp 98.2 F 09/03/18 08:00 Pulse 56 L 09/03/18 08:00 Resp 20 09/03/18 08:00 BP 81/61 09/03/18 08:00 Pulse Ox 92 L 09/03/18 08:00 Intake & Output 09/02/18 09/03/18 09/03/18 18:59 06:59 18:59 Intake Total 150 Output Total 2400 1350 Balance -2400 -1350 150 Weight 37.5 kg Intake: Oral 150 Output: Urine 2400 1350 Uretheral (Joyce) 350 Other: Voiding Method Indwelling Catheter Indwelling Catheter Indwelling Catheter # Voids 0 - Exam General: Non toxic, no distress, appears at stated age, cachectic Derm: Pressure ulcer over the sacral area with mild drainage and some blood, not malodorous, warm, dry Head: atraumatic, normocephalic, symmetric Eyes: EOMI, no lid lag, anicteric sclera Mouth: no lip lesion, mucus membranes moist Cardiovascular: S1S2 reg, no murmur, no JVD Lungs: Coarse breath sounds bilateral, no rhonchi, no rales , no accessory muscle use Abdominal: soft, nontender to palpation, no guarding, no appreciable organomegaly Ext: gross muscle atrophy of hip flexors, 2+ edema R LE, no contractures, LLE AKA and RLE BKA Neuro: CN II-XI grossly intact, no focal neuro deficits Psych: Alert, oriented, appropriate affect - Labs CBC & Chem 7: 09/03/18 06:26 09/03/18 06:26 Labs: Abnormal Lab Results - Last 24 Hours (Table) 09/03/18 09/03/18 09/03/18 Range/Units 06:26 06:26 07:18 RBC 3.57 L (3.80-5.40) m/uL Hgb 10.4 L (11.4-16.0) gm/dL Hct 33.0 L (34.0-46.0) % RDW 17.7 H (11.5-15.5) % BUN 52 H (7-17) mg/dL Creatinine 2.28 H (0.52-1.04) mg/dL Glucose 48 L* (74-99) mg/dL POC Glucose (mg/dL) 49 L (75-99) mg/dL Calcium 8.1 L (8.4-10.2) mg/dL 09/03/18 09/03/18 Range/Units 07:37 07:51 RBC (3.80-5.40) m/uL Hgb (11.4-16.0) gm/dL Hct (34.0-46.0) % RDW (11.5-15.5) % BUN (7-17) mg/dL Creatinine (0.52-1.04) mg/dL Glucose (74-99) mg/dL POC Glucose (mg/dL) 51 L 105 H (75-99) mg/dL Calcium (8.4-10.2) mg/dL Assessment and Plan Assessment: Acute systolic CHF with EF <20% -Continue with Lasix -on metoprolol decreased to 12.5 and held for low BP, no ACEI due to MOE and increased Cr, on imdur -Has anemia and will check iron studies. - TSH normal Arrhythmia - continue tele - await cardio review Hypoglycemia X 1 - encouraged oral intake - check 2am glucose Acute kidney injury with probable chronic kidney disease, baseline creatinine 2.04 in July but have been normal before that, likely component of cardiorenal syndrome. -Avoid nephrotoxic agents other than Lasix which as needed to optimize fluid status - nephrorecs appreciated - follow BMP closely with diuresis Sticky platelet syndrome, with recent renal infract - continue lovenox - follow with heme/onc out of [facility] Severe protein calorie malnutrition - continue megace... Needs to d/w heme onc and outpatient as it increases risk of thromboembolism - dietitian recs PAD, CAD - ASA, Plavix, imdur Mild transaminitis - chronic in nature - continued outpatient evaluation Chronic anemia - follow-up as outpatient, appears better than baseline - check iron studies. Stage II Sacral pressure ulcer, POA - off loading - Dr. Emigdio garcia appreciated,optifoam dressing DVT prophylaxis: Lovenox Discussed with: Patient Anticipated discharge: [address]: SNF A total of 35 minutes was spent on the care of this complex patient more than 50 % of the time was spent in counseling and care coordination.
[2018-09-03 11:54] LABS: Glucose,Whole Blood 71 mg/dL (75-99)
--- NOTE | 2018-09-03 13:02 | P.PN ---
Subjective Patient is seen in follow-up for acute kidney injury. Baseline creatinine is 1. It was elevated at 2.38 on admission and is 2.28 today. Patient presented with dyspnea. She is noted to have systolic CHF with ejection fraction of less than 20%. She is maintained on Lasix 40 mg IV 3 times daily. She is nonoliguric. Urinalysis is benign. Still admits to labored breathing. Vital signs are stable. General: The patient appeared well nourished and normally developed. HEENT: Head exam is unremarkable. Neck is without jugular venous distension. LUNGS: Lungs are clear to auscultation and percussion. Breath sounds decreased. HEART: Rate and Rhythm are regular. First and second heart sounds normal. No murmurs, rubs or gallops. ABDOMEN: Abdominal exam reveals normal bowel sounds. Non-tender and non- distended. No evidence of peritonitis. EXTREMITITES: Bilateral lower extremity amputations noted. Objective - Vital Signs Vital signs: Vital Signs Temp 96.3 F L 09/03/18 12:00 Pulse 100 09/03/18 12:00 Resp 18 09/03/18 12:00 BP 88/65 09/03/18 12:00 Pulse Ox 92 L 09/03/18 12:00 Intake & Output 09/02/18 09/03/18 09/03/18 18:59 06:59 18:59 Intake Total 150 Output Total 2400 1350 Balance -2400 -1350 150 Weight 37.5 kg Intake: Oral 150 Output: Urine 2400 1350 Uretheral (Joyce) 350 Other: Voiding Method Indwelling Catheter Indwelling Catheter Indwelling Catheter # Voids 0 - Labs CBC & Chem 7: 09/03/18 06:26 09/03/18 06:26 Labs: Abnormal Lab Results - Last 24 Hours (Table) 09/03/18 09/03/18 09/03/18 Range/Units 06:26 06:26 07:18 RBC 3.57 L (3.80-5.40) m/uL Hgb 10.4 L (11.4-16.0) gm/dL Hct 33.0 L (34.0-46.0) % RDW 17.7 H (11.5-15.5) % BUN 52 H (7-17) mg/dL Creatinine 2.28 H (0.52-1.04) mg/dL Glucose 48 L* (74-99) mg/dL POC Glucose (mg/dL) 49 L (75-99) mg/dL Calcium 8.1 L (8.4-10.2) mg/dL 09/03/18 09/03/18 09/03/18 Range/Units 07:37 07:51 11:53 RBC (3.80-5.40) m/uL Hgb (11.4-16.0) gm/dL Hct (34.0-46.0) % RDW (11.5-15.5) % BUN (7-17) mg/dL Creatinine (0.52-1.04) mg/dL Glucose (74-99) mg/dL POC Glucose (mg/dL) 51 L 105 H 71 L (75-99) mg/dL Calcium (8.4-10.2) mg/dL Assessment and Plan Plan: Assessment: 1. Acute kidney injury secondary to ATN secondary to cardiorenal syndrome. Creatinine slightly improved at 2.28 today. Urinalysis is benign. No evidence of hydronephrosis noted on renal ultrasound. 2. Volume overload. Improving with diuresis. 3. Metabolic acidosis secondary to acute kidney injury. 4. Systolic CHF with ejection fraction of less than 20%. 5. 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 7. Hypomagnesemia secondary to diuresis. Plan: Decrease Lasix to 40 mg IV twice daily. Can likely transition to oral this weekend. Avoid nephrotoxins. Maintain oral sodium bicarbonate. Repeat electrolytes the morning. Replace magnesium. 2 g IV today.
--- NOTE | 2018-09-03 13:34 | P.PN ---
Subjective Progress Note Date: 09/03/18 This is a 48-year-old -[place] female with history of prior CVA, asthma , prior DVT, prior pulmonary embolism, she has history of PAD with a right above -the-knee amputation and a left below the knee amputation, prior history of smoking, who presented to the hospital on this occasion with symptoms of progressively worsening shortness of breath. Chest x-ray on admission showed findings consistent with cardiogenic pulmonary edema and bilateral effusions. EKG shows a sinus tachycardia with nonspecific ST-T wave changes. Blood pressure on arrival here 110/50 with a heart rate in the 60s, this morning's blood pressure 110/80 with a heart rate in the 60s, patient was noted on review of her rhythm strips to have some sinus tachycardia. White blood cell count 5.1 , hemoglobin 11.1, platelet count 328. Sodium 139, potassium 4.3, BUN 50, creatinine 2.3. Troponins 0.012, 0.014, 0.013. BNP level 127,000. At the time of my examination this morning, patient is lying flat in bed, doesn't complain of significant shortness of breath, but states with minimal exertion she does get quite short of breath. 09/02/2018 Patient was seen and examined this morning, she is feeling somewhat better today. Blood pressure 118/60, heart rate 105. 93% on room air. Patient noted to have episodes of sinus tachycardia on the monitor. White blood cell count 5.1, hemoglobin 11.1, platelet count 328. Sodium 139, potassium 4.3, BUN 50, creatinine 2.3. Liver enzymes improving. Patient continues to be on Lasix 40 mg IV every 8 hourly. Echocardiogram with Doppler study was performed which revealed an ejection fraction of less than 20%. Patient is not currently on an NOLVIA inhibitor because of abnormal renal function. We will continue current dose of IV Lasix. Repeat chest x-ray. 09/03/2018 and was seen and examined this morning, complaining of feeling somewhat more short of breath today, appears to be a little euphoric today.blood pressure 88/ 60 with a heart rate in the 60s, 92% on room air.White blood cell count 7.3, hemoglobin 10.4, platelet count 306. Sodium 141, potassium 5.1, BUN 52, creatinine 2.2.magnesium 1.6. Objective - Vital Signs Vital signs: Vital Signs Temp 96.3 F L 09/03/18 12:00 Pulse 100 09/03/18 12:00 Resp 18 09/03/18 12:00 BP 88/65 09/03/18 12:00 Pulse Ox 92 L 09/03/18 12:00 Intake & Output 09/02/18 09/03/18 09/03/18 18:59 06:59 18:59 Intake Total 150 Output Total 2400 1350 Balance -2400 -1350 150 Weight 37.5 kg 37.5 kg Intake: Oral 150 Output: Urine 2400 1350 Uretheral (Joyce) 350 Other: Voiding Method Indwelling Catheter Indwelling Catheter Indwelling Catheter # Voids 0 - Exam PHYSICAL EXAMINATION: GENERAL: 48-year-old -[place] female in no acute distress at the time of my examination HEENT: Head is atraumatic, normocephalic. Pupils equal, round. Sclera anicteric. Conjunctiva are clear. Mucous membranes of the mouth are moist. Neck is supple. There is elevated jugular venous pressure. No carotid bruit is heard. HEART EXAMINATION: Heart S1 S2 1 systolic murmur is heard CHEST EXAMINATION: Lungs are clear with diminished air entry to bilateral bases ABDOMEN: Soft, nontender. Bowel sounds are heard. No organomegaly noted. EXTREMITIES: Patient has a right [id number] amputation and left below the knee amputation. NEUROLOGIC patient is awake, alert and oriented X3 - Labs CBC & Chem 7: 09/03/18 06:26 09/03/18 06:26 Labs: Abnormal Lab Results - Last 24 Hours (Table) 09/03/18 09/03/18 09/03/18 Range/Units 06:26 06:26 07:18 RBC 3.57 L (3.80-5.40) m/uL Hgb 10.4 L (11.4-16.0) gm/dL Hct 33.0 L (34.0-46.0) % RDW 17.7 H (11.5-15.5) % BUN 52 H (7-17) mg/dL Creatinine 2.28 H (0.52-1.04) mg/dL Glucose 48 L* (74-99) mg/dL POC Glucose (mg/dL) 49 L (75-99) mg/dL Calcium 8.1 L (8.4-10.2) mg/dL 09/03/18 09/03/18 09/03/18 Range/Units 07:37 07:51 11:53 RBC (3.80-5.40) m/uL Hgb (11.4-16.0) gm/dL Hct (34.0-46.0) % RDW (11.5-15.5) % BUN (7-17) mg/dL Creatinine (0.52-1.04) mg/dL Glucose (74-99) mg/dL POC Glucose (mg/dL) 51 L 105 H 71 L (75-99) mg/dL Calcium (8.4-10.2) mg/dL Assessment and Plan Plan: Assessment and plan #1 congestive cardiac failure, LV function unknown we will obtain an echocardiogram with Doppler study. #2 history of sticky platelet syndrome with multiple DVTs and pulmonary embolism #3 PAD with prior right [id number] amputation and left below the knee amputation #4 hypertension #5 history of nicotine dependence #6 chronic anemia #7 acute on chronic kidney injury Plan we'll continue the patient on her current medications. Check lytes BUN and creatinine in the morning. DNP note has been reviewed, I agree with a documented findings and plan of care. Patient was seen and examined.
[2018-09-03] MEDS: MAGNESIUM SULFATE-D5W PMX 1 GM in DEXTROSE/WATER 1 100ML.BAG IVPB SCH ×2 (15:11→16:56)
[2018-09-03] MEDS: SODIUM CHLORIDE 0.9% 1,000 ML IV SCH (15:17)
[2018-09-03 17:00] LABS: Glucose,Whole Blood 88 mg/dL (75-99)
[2018-09-03 21:17] LABS: Glucose,Whole Blood 140 mg/dL (75-99)
[2018-09-03] MEDS: METOPROLOL TARTRATE 12.5 MG TAB PO SCH (22:15)
[2018-09-03] MEDS: QUEtiapine 25 MG TAB PO SCH (22:16)
--- NOTE | 2018-09-03 22:56 | P.PN ---
Subjective Progress Note Date: 09/03/18 48-year-old Afro-[place] woman presents to Hospital with significant shortness of breath and increasing weakness. 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 She had acute kidney injury with concerns to renal infarction and constantly she was transferred to [facility] where she's received her care regarding her many medical troubles. She previously had severe arterial disease also is noted by the lower extremity amputations and the notation of angiography, and aorto femoral bypasses. The patient is cared for by her mother in the home setting. She is requiring total care and although she is conversational the content of her speech is quite poor at this time. She relates that she is not very uncomfortable. Her shortness of breath is improved. She is being treated for new congestive heart failure and is feeling better. There is evidence of pressure ulceration to the coccyx for which the consultation has been requested. Apparently it started after her recent stay at the outside hospital. 09/03/2018 patient with some improvement in her status. She has chronic pain and seems comfortable at this time. His related that she was taking some narcotics from home originally during her stay. Resulting in some waxing and waning mental status some hypotension. Seems to be slightly improved today. Continues to have a bizarre affect. Objective - Vital Signs Vital signs: Vital Signs Temp 96.2 F L 09/03/18 16:00 Pulse 109 H 09/03/18 16:00 Resp 18 09/03/18 16:00 BP 106/67 09/03/18 16:00 Pulse Ox 93 L 09/03/18 16:00 Intake & Output 09/03/18 09/03/18 09/04/18 06:59 18:59 06:59 Intake Total 350 Output Total 1350 1000 Balance -1350 -650 Weight 37.5 kg 37.5 kg Intake: Intake, IV Titration 200 Amount Sodium Chloride 0.9% 1, 200 000 ml @ 20 mls/hr IV . Q24H [facility] Rx#:[id number] Oral 150 Output: Urine 1350 1000 Uretheral (Joyce) 350 Other: Voiding Method Indwelling Catheter Indwelling Catheter # Voids 0 1 - Exam 48-year-old woman who looks considerably older than her stated age she is cachectic HEENT: Anicteric conjunctiva are pink and moist nasal mucosa grossly intact without significant lesions, there is no thrush. Full dentures in place Neck: The neck is supple without significant lymphadenopathy or thyromegaly. Lungs: Symmetrical air entry is noted there are few expiratory wheezes basilar crackles are noted Heart: Regular audible S1 and S2 soft S4 2/6 systolic murmur left sternal border , nondisplaced PMI no heave or thrill Abdomen: Positive bowel sounds soft and nontender without palpable masses or organomegaly. There was no guarding or rebound. Extremities: Upper extremities intact IV site is without difficulty. Looks reveal evidence of the prior amputations the amputation sites are well-healed. Skin evidence of the stage II pressure ulceration present on admission to the [facility]. There is not significant drainage at this time it is minimally tender. No other ulcerations are seen. Neuro: Awake alert oriented to person may be oriented to place but thought she was at [facility] and then [facility]. She moves extremities freely struggles with commands. Upon arrival she is sitting up in the chair and seems comfortable. - Labs CBC & Chem 7: 09/03/18 06:26 09/03/18 06:26 Labs: Abnormal Lab Results - Last 24 Hours (Table) 09/03/18 09/03/18 09/03/18 Range/Units 06:26 06:26 07:18 RBC 3.57 L (3.80-5.40) m/uL Hgb 10.4 L (11.4-16.0) gm/dL Hct 33.0 L (34.0-46.0) % RDW 17.7 H (11.5-15.5) % BUN 52 H (7-17) mg/dL Creatinine 2.28 H (0.52-1.04) mg/dL Glucose 48 L* (74-99) mg/dL POC Glucose (mg/dL) 49 L (75-99) mg/dL Calcium 8.1 L (8.4-10.2) mg/dL 09/03/18 09/03/18 09/03/18 Range/Units 07:37 07:51 11:53 RBC (3.80-5.40) m/uL Hgb (11.4-16.0) gm/dL Hct (34.0-46.0) % RDW (11.5-15.5) % BUN (7-17) mg/dL Creatinine (0.52-1.04) mg/dL Glucose (74-99) mg/dL POC Glucose (mg/dL) 51 L 105 H 71 L (75-99) mg/dL Calcium (8.4-10.2) mg/dL 09/03/18 Range/Units 21:16 RBC (3.80-5.40) m/uL Hgb (11.4-16.0) gm/dL Hct (34.0-46.0) % RDW (11.5-15.5) % BUN (7-17) mg/dL Creatinine (0.52-1.04) mg/dL Glucose (74-99) mg/dL POC Glucose (mg/dL) 140 H (75-99) mg/dL Calcium (8.4-10.2) mg/dL Laboratory Results WBC 7.3 k/uL (3.8-10.6) 09/03/18 06:26 RBC 3.57 m/uL (3.80-5.40) L 09/03/18 06:26 Hgb 10.4 gm/dL (11.4-16.0) L 09/03/18 06:26 Hct 33.0 % (34.0-46.0) L 09/03/18 06:26 MCV 92.5 fL (80.0-100.0) 09/03/18 06:26 MCH 29.1 pg (25.0-35.0) 09/03/18 06:26 MCHC 31.5 g/dL (31.0-37.0) 09/03/18 06:26 RDW 17.7 % (11.5-15.5) H 09/03/18 06:26 Plt Count 306 k/uL (150-450) 09/03/18 06:26 Neutrophils % 62 % 09/01/18 03:50 Lymphocytes % 31 % 09/01/18 03:50 Monocytes % 5 % 09/01/18 03:50 Eosinophils % 1 % 09/01/18 03:50 Basophils % 1 % 09/01/18 03:50 Neutrophils # 3.2 k/uL (1.3-7.7) 09/01/18 03:50 Lymphocytes # 1.6 k/uL (1.0-4.8) 09/01/18 03:50 Monocytes # 0.3 k/uL (0-1.0) 09/01/18 03:50 Eosinophils # 0.1 k/uL (0-0.7) 09/01/18 03:50 Basophils # 0.0 k/uL (0-0.2) 09/01/18 03:50 Manual Slide Review Performed 09/01/18 03:50 Hypochromasia Moderate 09/03/18 06:26 Anisocytosis Slight 09/03/18 06:26 PT 11.2 sec (9.0-12.0) 08/31/18 15:15 INR 1.2 (<1.2) H 08/31/18 15:15 APTT 23.4 sec (22.0-30.0) 08/31/18 15:15 Sodium 141 mmol/L (137-145) 09/03/18 06:26 Potassium 5.1 mmol/L (3.5-5.1) 09/03/18 06:26 Chloride 107 mmol/L (98-107) 09/03/18 06:26 Carbon Dioxide 25 mmol/L (22-30) 09/03/18 06:26 Anion Gap 9 mmol/L 09/03/18 06:26 BUN 52 mg/dL (7-17) H 09/03/18 06:26 Creatinine 2.28 mg/dL (0.52-1.04) H 09/03/18 06:26 Est GFR (CKD-EPI)AfAm 28 (>60 ml/min/1.73 sqM) 09/03/18 06:26 Est GFR (CKD-EPI)NonAf 24 (>60 ml/min/1.73 sqM) 09/03/18 06:26 Glucose 48 mg/dL (74-99) L* 09/03/18 06:26 POC Glucose (mg/dL) 140 mg/dL (75-99) H 09/03/18 21:16 POC Glu M[employer]er ID [email or web address] 09/03/18 21:16 Calcium 8.1 mg/dL (8.4-10.2) L 09/03/18 06:26 Magnesium 1.6 mg/dL (1.6-2.3) 09/03/18 06:26 Total Bilirubin 0.4 mg/dL (0.2-1.3) 09/01/18 03:50 AST 69 U/L (14-36) H 09/01/18 03:50 ALT 56 U/L (9-52) H 09/01/18 03:50 Alkaline Phosphatase 257 U/L (38-126) H 09/01/18 03:50 Total Creatine Kinase 36 U/L (30-135) 08/31/18 15:15 CK-MB (CK-2) 2.3 ng/mL (0.0-2.4) 08/31/18 15:15 CK-MB (CK-2) Rel Index 6.4 08/31/18 15:15 Troponin I 0.013 ng/mL (0.000-0.034) 09/01/18 03:50 NT-Pro-B Natriuret Pep [id number] pg/mL 08/31/18 15:15 Total Protein 6.2 g/dL (6.3-8.2) L 09/01/18 03:50 Albumin 2.4 g/dL (3.5-5.0) L 09/01/18 03:50 TSH 1.220 mIU/L (0.465-4.680) 09/01/18 03:50 Urine Color Light Yellow 09/01/18 19:24 Urine Appearance Clear (Clear) 09/01/18 19:24 Urine pH 5.0 (5.0-8.0) 09/01/18 19:24 Ur Specific [place] 1.007 (1.001-1.035) 09/01/18 19:24 Urine Protein Negative (Negative) 09/01/18 19:24 Urine Glucose (UA) Negative (Negative) 09/01/18 19:24 Urine Ketones Negative (Negative) 09/01/18 19:24 Urine Blood Negative (Negative) 09/01/18 19:24 Urine Nitrite Negative (Negative) 09/01/18 19:24 Urine Bilirubin Negative (Negative) 09/01/18 19:24 Urine Urobilinogen <2.0 mg/dL (<2.0) 09/01/18 19:24 Ur Leukocyte Esterase Negative (Negative) 09/01/18 19:24 Assessment and Plan (1) Acute pulmonary edema Current Visit: Yes Status: Acute Code(s): J81.0 - ACUTE PULMONARY EDEMA SNOMED Code(s): 77872138 (2) Sticky platelet syndrome Current Visit: Yes Status: Acute Code(s): D69.1 - QUALITATIVE PLATELET DEFECTS SNOMED Code(s): 505050976 (3) PVD (peripheral vascular disease) Current Visit: Yes Status: Acute Code(s): I73.9 - PERIPHERAL VASCULAR DISEASE, UNSPECIFIED SNOMED Code(s): 618602387 (4) Pressure ulcer of coccygeal region, stage 2 Narrative/Plan: 48-year-old woman presents to the emergency center with the shortness of breath which is now improved after admission and diuretic therapy. The urologic evaluation failure evidence of any obstruction at this time. Her pain is well controlled. She has a difficulty with her affect however the mother is not concerned appears to be about her baseline. Patient is evidence of the stage II pressure ulceration present on admission of her coccyx. The optifoam border dressing will be utilized to protect this area. Chest x-ray was evaluated revealing evidence of congestive heart failure but no azucena pneumonic infiltrates. The coccyx ulceration is not infected this time and no need for antibiotic therapy. 09/03/2018 patient is stable is likely will be transferred to rehab for ongoing care. Continue the protective foam dressing to the coccyx ulceration. Current Visit: Yes Status: Acute Code(s): L89.152 - PRESSURE ULCER OF SACRAL REGION, STAGE 2 SNOMED Code(s): 289193537
[2018-09-04 02:04] LABS: Glucose,Whole Blood 76 mg/dL (75-99)
[2018-09-04 06:05] LABS: Glucose,Whole Blood 38 mg/dL (75-99)
[2018-09-04 06:32] LABS: Glucose,Whole Blood 78 mg/dL (75-99)
[2018-09-04 07:02] LABS: Calcium 7.8 mg/dL (8.4-10.2); Magnesium 2.3 mg/dL (1.6-2.3); Potassium 5.5 mmol/L (3.5-5.1)
[2018-09-04] MEDS ORDERED: SODIUM POLYSTYRENE SULFONATE 15 GM/60 ML BOTTLE PO STA (07:21)
[2018-09-04] MEDS ORDERED: COSYNTROPIN 0.25 MG VIAL IVP ONE (07:35)
[2018-09-04] MEDS: ENOXAPARIN 40 MG/0.4 ML SYRINGE SQ SCH (08:23)
[2018-09-04] MEDS: ATORVASTATIN 40 MG TAB PO SCH (08:23)
[2018-09-04] MEDS: PANTOPRAZOLE 40 MG TABLET PO SCH (08:23)
[2018-09-04] MEDS: OXYBUTYNIN CHLORIDE 5 MG TAB PO SCH ×3 (08:23→21:07)
[2018-09-04] MEDS: MEGESTROL 400 MG/10 ML CUP PO SCH (08:23)
[2018-09-04] MEDS: METOPROLOL TARTRATE 12.5 MG TAB PO SCH ×2 (08:23→21:06)
[2018-09-04] MEDS: FUROSEMIDE 10 MG/ML 4 ML VIAL IV SCH (08:23)
[2018-09-04] MEDS: MORPHINE SULFATE ER 100 MG TABLET PO SCH ×2 (08:23→21:06)
[2018-09-04] MEDS: ISOSORBIDE MONONITRATE ER 30 MG TAB.ER.24H PO SCH (08:23)
[2018-09-04] MEDS: ASPIRIN 81 MG PO SCH (08:23)
[2018-09-04] MEDS: SODIUM BICARBONATE TAB 650 MG TAB PO SCH ×2 (08:24→21:07)
[2018-09-04] MEDS: SODIUM CHLORIDE 0.9% 1,000 ML IV SCH (08:24)
[2018-09-04] MEDS: CLOPIDOGREL 75 MG TAB PO SCH (08:24)
[2018-09-04 10:59] LABS: Calcium 7.7 mg/dL (8.4-10.2); Potassium 4.3 mmol/L (3.5-5.1)
[2018-09-04 11:41] LABS: Glucose,Whole Blood 45 mg/dL (75-99)
[2018-09-04 12:15] LABS: Glucose,Whole Blood 106 mg/dL (75-99)
[2018-09-04] MEDS: DEXTROSE 10% IN WATER 500 ML in EMPTY BAG 1 BAG IV SCH (12:25)
--- NOTE | 2018-09-04 12:38 | P.PN ---
Subjective Progress Note Date: 09/04/18 (Nephrology) Principal diagnosis: Acute kidney injury Seen and examined for the follow-up of acute kidney injury. Baseline creatinine around 1 admitted with a peak creatinine of 2.38. Creatinine improved but still on the high side. Blood pressure still marginal with the EF of 20%. Objective - Vital Signs Vital signs: Vital Signs Temp 98.3 F 09/04/18 08:00 Pulse 111 H 09/04/18 08:00 Resp 18 09/04/18 08:00 BP 112/73 09/04/18 08:00 Pulse Ox 92 L 09/04/18 08:00 Intake & Output 09/03/18 09/04/18 09/04/18 18:59 06:59 18:59 Intake Total 350 Output Total 1000 1400 Balance -650 -1400 Weight 37.5 kg 45.3 kg Intake: Intake, IV Titration 200 Amount Sodium Chloride 0.9% 1, 200 000 ml @ 20 mls/hr IV . Q24H [facility] Rx#:[id number] Oral 150 Output: Urine 1000 1400 Other: Voiding Method Indwelling Catheter Indwelling Catheter Indwelling Catheter # Voids 0 1 - Exam Lying in bed no acute distress S1 S2 heard Lungs clear No edema, bilateral BKA - Labs CBC & Chem 7: 09/03/18 06:26 09/04/18 10:21 Labs: Abnormal Lab Results - Last 24 Hours (Table) 09/03/18 09/04/18 09/04/18 Range/Units 21:16 06:02 06:03 Potassium 5.5 H (3.5-5.1) mmol/L BUN 52 H (7-17) mg/dL Creatinine 1.95 H (0.52-1.04) mg/dL Glucose 52 L (74-99) mg/dL POC Glucose (mg/dL) 140 H 38 L (75-99) mg/dL Calcium 7.8 L (8.4-10.2) mg/dL 09/04/18 09/04/18 09/04/18 Range/Units 10:21 11:38 12:05 Potassium (3.5-5.1) mmol/L BUN 50 H (7-17) mg/dL Creatinine 1.98 H (0.52-1.04) mg/dL Glucose (74-99) mg/dL POC Glucose (mg/dL) 45 L 106 H (75-99) mg/dL Calcium 7.7 L (8.4-10.2) mg/dL Assessment and Plan Assessment: #1 acute kidney injury secondary to cardiorenal syndrome. #2 CHF with systolic dysfunction EF of 20% #3 hypotension with mild hyperkalemia and hypoglycemia raises the suspicion for adrenal insufficiency. #4 metabolic acidosis resolved #5 anemia with chronic kidney disease Plan: #1 currently on 40 mg IV twice a day changed to by mouth Demadex 20 mg daily #2 avoid nephrotoxic agents and hypotensive episodes #3 check bladder scan to rule out urinary retention #4 labs in the morning
[2018-09-04 13:16] LABS: Iron Saturation 10.84 (12.00-45.00)
--- NOTE | 2018-09-04 16:08 | P.PN ---
Subjective Progress Note Date: 09/04/18 Principal diagnosis: Shortness of breath Patient is a 48-year-old -[place] female with a history of sticky platelet syndrome, multiple DVTs, pulmonary embolism, and peripheral arterial disease who presented in with right-sided chest pain and shortness of breath. In the ER she underwent an extensive evaluation. On arrival her vital signs showed a slight hypoxemia with an O2 sat of 90% on room air. Laboratory analysis showed a hyperchloremic metabolic acidosis as well as an elevated creatinine at 2.38. She had slightly elevated liver enzymes. A BNP was 127, 000. Initial troponin was negative. EKG did not show any signs of acute ischemia. She was given a dose of morphine, Lasix, and DuoNeb. Arrangements were made for admission. She was found to have pulmonary edema and her Lasix was continued. Cardiology was consulted and echocardiogram was ordered. Her EF was found to be low at less than 20%. Cardio transitioned her to metoprolol. Her BP was low the morning of 09/02 and he hydralazine was stopped. Her BP was again low on the morning of 09/03 and her metoprolol was held. Here blood sugar was low again on the morning of 09/04 without any insulin administration. Patient seen and examined at bedside. No prior history of hypoglycemia. Has not been taking any insulin. States her appetite has been well. Still complains of some shortness of breath and chest heaviness. No nausea or vomiting. Ate breakfast. She denies any symptoms with hypoglycemic other than feeling cold. After multiple questioning she does admit some cognitive delays. She denies any lightheadedness, dizziness, sweating, or seizure-like activity. Objective - Vital Signs Vital signs: Vital Signs Temp 98.0 F 09/04/18 12:00 Pulse 100 09/04/18 12:00 Resp 18 09/04/18 12:00 BP 109/73 09/04/18 12:00 Pulse Ox 92 L 09/04/18 12:00 Intake & Output 09/03/18 09/04/18 09/04/18 18:59 06:59 18:59 Intake Total 350 90 Output Total 1000 1400 Balance -650 -1400 90 Weight 37.5 kg 45.3 kg Intake: Intake, IV Titration 200 Amount Sodium Chloride 0.9% 1, 200 000 ml @ 20 mls/hr IV . Q24H [facility] Rx#:[id number] Oral 150 90 Output: Urine 1000 1400 Other: Voiding Method Indwelling Catheter Indwelling Catheter Indwelling Catheter # Voids 0 1 - Exam General: Non toxic, no distress, appears at stated age, cachectic Derm: Pressure ulcer over the sacral area with mild drainage and some blood, not malodorous, warm, dry Head: atraumatic, normocephalic, symmetric Eyes: EOMI, no lid lag, anicteric sclera Mouth: no lip lesion, mucus membranes moist Cardiovascular: S1S2 reg, no murmur, no JVD Lungs: Decreased breath sounds bilateral, no rhonchi, no rales , no accessory muscle use Abdominal: soft, nontender to palpation, no guarding, no appreciable organomegaly Ext: gross muscle atrophy of hip flexors, 1+ edema R LE, no contractures, LLE AKA and RLE BKA Neuro: CN II-XI grossly intact, no focal neuro deficits Psych: Alert, oriented, appropriate affect - Labs CBC & Chem 7: 09/03/18 06:26 09/04/18 10:21 Labs: Abnormal Lab Results - Last 24 Hours (Table) 09/03/18 09/04/18 09/04/18 Range/Units 21:16 06:02 06:03 Potassium (3.5-5.1) mmol/L BUN (7-17) mg/dL Creatinine (0.52-1.04) mg/dL Glucose (74-99) mg/dL POC Glucose (mg/dL) 140 H 38 L (75-99) mg/dL Calcium (8.4-10.2) mg/dL Iron 22 L (50-170) ug/dL TIBC 203 L (228-460) ug/dL Iron Saturation 10.84 L (12.00-45.00) Ferritin 988.0 H (10.0-291.0) ng/mL 09/04/18 09/04/18 09/04/18 Range/Units 06:03 10:21 11:38 Potassium 5.5 H (3.5-5.1) mmol/L BUN 52 H 50 H (7-17) mg/dL Creatinine 1.95 H 1.98 H (0.52-1.04) mg/dL Glucose 52 L (74-99) mg/dL POC Glucose (mg/dL) 45 L (75-99) mg/dL Calcium 7.8 L 7.7 L (8.4-10.2) mg/dL Iron (50-170) ug/dL TIBC (228-460) ug/dL Iron Saturation (12.00-45.00) Ferritin (10.0-291.0) ng/mL 09/04/18 Range/Units 12:05 Potassium (3.5-5.1) mmol/L BUN (7-17) mg/dL Creatinine (0.52-1.04) mg/dL Glucose (74-99) mg/dL POC Glucose (mg/dL) 106 H (75-99) mg/dL Calcium (8.4-10.2) mg/dL Iron (50-170) ug/dL TIBC (228-460) ug/dL Iron Saturation (12.00-45.00) Ferritin (10.0-291.0) ng/mL Assessment and Plan Assessment: Hypoglycemia -Check insulin, C-peptide, cortisol level, an ACTH stim test with concern for possible adrenal insufficiency with recent renal infarct -Accu-Cheks every 4 hours -D10 drip Hyperkalemia -Kayexalate, continue with Lasix -Repeat BMP this morning Acute systolic CHF with EF <20% -Continue with Lasix -on metoprolol 12.5, no ACEI due to MOE and increased Cr, on imdur -Ferritin above normal - TSH normal Acute kidney injury with probable chronic kidney disease, baseline creatinine 2.04 in July but have been normal before that, likely component of cardiorenal syndrome. -Avoid nephrotoxic agents other than Lasix which as needed to optimize fluid status - nephrorecs appreciated - follow BMP closely with diuresis -Hyperkalemic today with hypoglycemia. Adrenal insufficiency workup pending. Sticky platelet syndrome, with recent renal infract - continue lovenox - follow with heme/onc out of [facility] Severe protein calorie malnutrition - continue megace... Needs to d/w heme onc and outpatient as it increases risk of thromboembolism - dietitian jose PAD, CAD - ASA, Plavix, imdur Mild transaminitis - chronic in nature - continued outpatient evaluation Chronic anemia - follow-up as outpatient, appears better than baseline - check iron studies. Stage II Sacral pressure ulcer, POA - off loading - Dr. Emigdio garcia appreciated,optifoam dressing DVT prophylaxis: Lovenox Discussed with: Patient Anticipated discharge: [address]: SNF A total of 35 minutes was spent on the care of this complex patient more than 50 % of the time was spent in counseling and care coordination.
[2018-09-04 16:42] LABS: Glucose,Whole Blood 109 mg/dL (75-99)
[2018-09-04 18:07] LABS: C-Peptide 2.31 ng/mL (0.81-3.85)
[2018-09-04] MEDS: QUEtiapine 25 MG TAB PO SCH (21:06)
[2018-09-04 21:17] LABS: Glucose,Whole Blood 129 mg/dL (75-99)
[2018-09-05 00:18] LABS: Glucose,Whole Blood 135 mg/dL (75-99)
[2018-09-05 04:03] LABS: Glucose,Whole Blood 114 mg/dL (75-99)
[2018-09-05 06:33] LABS: Anisocytosis Slight; HCT 27.5 % (34.0-46.0); Hypochromasia Slight; MCH 29.2 pg (25.0-35.0); MCHC 32.2 g/dL (31.0-37.0); MCV 90.6 fL (80.0-100.0); Mean Platelet Volume 7.1; Platelet Count 294 k/uL (150-450); RBC 3.04 m/uL (3.80-5.40); RDW 18.1 % (11.5-15.5); WBC 7.1 k/uL (3.8-10.6)
[2018-09-05 06:42] LABS: Calcium 7.5 mg/dL (8.4-10.2); HGB 8.9 gm/dL (11.4-16.0); Potassium 4.2 mmol/L (3.5-5.1)
[2018-09-05 08:53] LABS: Glucose,Whole Blood 126 mg/dL (75-99)
[2018-09-05] MEDS: ASPIRIN 81 MG PO SCH (09:01)
[2018-09-05] MEDS: METOPROLOL TARTRATE 12.5 MG TAB PO SCH ×2 (09:01→20:46)
[2018-09-05] MEDS: ATORVASTATIN 40 MG TAB PO SCH (09:01)
[2018-09-05] MEDS: MORPHINE SULFATE ER 100 MG TABLET PO SCH ×2 (09:01→20:46)
[2018-09-05] MEDS: CLOPIDOGREL 75 MG TAB PO SCH (09:01)
[2018-09-05] MEDS: ENOXAPARIN 40 MG/0.4 ML SYRINGE SQ SCH (09:03)
[2018-09-05] MEDS: MEGESTROL 400 MG/10 ML CUP PO SCH (09:03)
[2018-09-05] MEDS: PANTOPRAZOLE 40 MG TABLET PO SCH (09:03)
[2018-09-05] MEDS: ISOSORBIDE MONONITRATE ER 30 MG TAB.ER.24H PO SCH (09:03)
[2018-09-05] MEDS: OXYBUTYNIN CHLORIDE 5 MG TAB PO SCH ×3 (09:03→20:48)
[2018-09-05] MEDS: TORSEMIDE 20 MG TAB PO SCH (09:03)
[2018-09-05] MEDS: SODIUM BICARBONATE TAB 650 MG TAB PO SCH ×2 (09:04→20:48)
--- NOTE | 2018-09-05 10:57 | P.PN ---
Subjective Progress Note Date: 09/05/18 Principal diagnosis: Acute kidney injury Seen and examined for the follow-up of acute kidney injury. Baseline creatinine around 1 admitted with a peak creatinine of 2.38. Creatinine improving, Blood pressure still marginal with the EF of 20%. Objective - Vital Signs Vital signs: Vital Signs Temp 96.8 F L 09/05/18 08:00 Pulse 111 H 09/05/18 08:00 Resp 18 09/05/18 08:00 BP 127/84 09/05/18 08:00 Pulse Ox 98 09/05/18 08:00 Intake & Output 09/04/18 09/05/18 09/05/18 18:59 06:59 18:59 Intake Total 280 632 Output Total 0 1000 Balance 280 -1000 632 Weight 42 kg Intake: Intake, IV Titration 160 Amount Dextrose 10% in Water 500 160 ml In Empty Bag 1 bag @ 20 mls/hr IV .Q24H [facility] Rx #:[id number] Oral 280 472 Output: Urine 0 1000 Other: Voiding Method Indwelling Catheter Indwelling Catheter Indwelling Catheter # Voids 0 - Exam Lying in bed no acute distress S1 S2 heard Lungs clear No edema, bilateral BKA - Labs CBC & Chem 7: 09/05/18 05:57 09/05/18 05:57 Labs: Abnormal Lab Results - Last 24 Hours (Table) 09/04/18 09/04/18 09/04/18 Range/Units 06:03 07:54 10:21 RBC (3.80-5.40) m/uL Hgb (11.4-16.0) gm/dL Hct (34.0-46.0) % RDW (11.5-15.5) % Sodium (137-145) mmol/L BUN 50 H (7-17) mg/dL Creatinine 1.98 H (0.52-1.04) mg/dL POC Glucose (mg/dL) (75-99) mg/dL Insulin Level 1.0 L (3.0-25.0) mIU/mL Calcium 7.7 L (8.4-10.2) mg/dL Iron 22 L (50-170) ug/dL TIBC 203 L (228-460) ug/dL Iron Saturation 10.84 L (12.00-45.00) Ferritin 988.0 H (10.0-291.0) ng/mL 09/04/18 09/04/18 09/04/18 Range/Units 11:38 12:05 16:40 RBC (3.80-5.40) m/uL Hgb (11.4-16.0) gm/dL Hct (34.0-46.0) % RDW (11.5-15.5) % Sodium (137-145) mmol/L BUN (7-17) mg/dL Creatinine (0.52-1.04) mg/dL POC Glucose (mg/dL) 45 L 106 H 109 H (75-99) mg/dL Insulin Level (3.0-25.0) mIU/mL Calcium (8.4-10.2) mg/dL Iron (50-170) ug/dL TIBC (228-460) ug/dL Iron Saturation (12.00-45.00) Ferritin (10.0-291.0) ng/mL 09/04/18 09/05/18 09/05/18 Range/Units 21:04 00:15 04:01 RBC (3.80-5.40) m/uL Hgb (11.4-16.0) gm/dL Hct (34.0-46.0) % RDW (11.5-15.5) % Sodium (137-145) mmol/L BUN (7-17) mg/dL Creatinine (0.52-1.04) mg/dL POC Glucose (mg/dL) 129 H 135 H 114 H (75-99) mg/dL Insulin Level (3.0-25.0) mIU/mL Calcium (8.4-10.2) mg/dL Iron (50-170) ug/dL TIBC (228-460) ug/dL Iron Saturation (12.00-45.00) Ferritin (10.0-291.0) ng/mL 09/05/18 09/05/18 09/05/18 Range/Units 05:57 05:57 08:50 RBC 3.04 L (3.80-5.40) m/uL Hgb 8.9 L D (11.4-16.0) gm/dL Hct 27.5 L (34.0-46.0) % RDW 18.1 H (11.5-15.5) % Sodium 136 L (137-145) mmol/L BUN 49 H (7-17) mg/dL Creatinine 1.75 H (0.52-1.04) mg/dL POC Glucose (mg/dL) 126 H (75-99) mg/dL Insulin Level (3.0-25.0) mIU/mL Calcium 7.5 L (8.4-10.2) mg/dL Iron (50-170) ug/dL TIBC (228-460) ug/dL Iron Saturation (12.00-45.00) Ferritin (10.0-291.0) ng/mL Assessment and Plan Assessment: #1 acute kidney injury secondary to cardiorenal syndrome. #2 CHF with systolic dysfunction EF of 20% #3 hypotension with mild hyperkalemia and hypoglycemia raises the suspicion for adrenal insufficiency. #4 metabolic acidosis resolved #5 anemia with chronic kidney disease Plan: #1 currently on Demadex 20 mg daily renal function improving #2 avoid nephrotoxic agents and hypotensive episodes #3 stable from nephrology point of view for discharge
[2018-09-05] MEDS: MORPHINE ORAL SOLN 10 MG/5 ML CUP PO PRN (11:17)
[2018-09-05 11:27] LABS: Glucose,Whole Blood 95 mg/dL (75-99)
[2018-09-05] MEDS: DEXTROSE 10% IN WATER 500 ML in EMPTY BAG 1 BAG IV SCH (14:46)
[2018-09-05 17:00] LABS: Glucose,Whole Blood 130 mg/dL (75-99)
[2018-09-05] MEDS: QUEtiapine 25 MG TAB PO SCH (20:48)
[2018-09-05 21:03] LABS: Glucose,Whole Blood 148 mg/dL (75-99)
--- NOTE | 2018-09-05 21:11 | P.PN ---
Subjective Progress Note Date: 09/05/18 Principal diagnosis: Shortness of breath Patient is a 48-year-old -[place] female with a history of sticky platelet syndrome, multiple DVTs, pulmonary embolism, and peripheral arterial disease who presented in with right-sided chest pain and shortness of breath. In the ER she underwent an extensive evaluation. On arrival her vital signs showed a slight hypoxemia with an O2 sat of 90% on room air. Laboratory analysis showed a hyperchloremic metabolic acidosis as well as an elevated creatinine at 2.38. She had slightly elevated liver enzymes. A BNP was 127, 000. Initial troponin was negative. EKG did not show any signs of acute ischemia. She was given a dose of morphine, Lasix, and DuoNeb. Arrangements were made for admission. She was found to have pulmonary edema and her Lasix was continued. Cardiology was consulted and echocardiogram was ordered. Her EF was found to be low at less than 20%. Cardio transitioned her to metoprolol. Her BP was low the morning of 09/02 and he hydralazine was stopped. Her BP was again low on the morning of 09/03 and her metoprolol was held. Here blood sugar was low again on the morning of 09/04 without any insulin administration. She was started on D 10 gtt which was decreased on 09/05. Patient seen and examined at bedside. Wondering when she can leave the hospital. no chest pain. Still with SOB. C/O her food not being here and being hungry, needing sugar for her coffee. Objective - Vital Signs Vital signs: Vital Signs Temp 96.8 F L 09/05/18 08:00 Pulse 111 H 09/05/18 08:00 Resp 18 09/05/18 08:00 BP 127/84 09/05/18 08:00 Pulse Ox 98 09/05/18 08:00 Intake & Output 09/04/18 09/05/18 09/05/18 18:59 06:59 18:59 Intake Total 280 632 Output Total 0 1000 Balance 280 -1000 632 Weight 42 kg Intake: Intake, IV Titration 160 Amount Dextrose 10% in Water 500 160 ml In Empty Bag 1 bag @ 20 mls/hr IV .Q24H [facility] Rx #:[id number] Oral 280 472 Output: Urine 0 1000 Other: Voiding Method Indwelling Catheter Indwelling Catheter Indwelling Catheter # Voids 0 - Exam General: Non toxic, no distress, appears at stated age, cachectic Derm: Pressure ulcer over the sacral area with mild drainage and some blood, not malodorous, warm, dry Head: atraumatic, normocephalic, symmetric Eyes: EOMI, no lid lag, anicteric sclera Mouth: no lip lesion, mucus membranes moist Cardiovascular: S1S2 reg, no murmur, no JVD Lungs: CTA bilateral, no rhonchi, no rales , no accessory muscle use Abdominal: soft, nontender to palpation, no guarding, no appreciable organomegaly Ext: gross muscle atrophy of hip flexors, 1+ edema R LE, no contractures, LLE AKA and RLE BKA Neuro: CN II-XI grossly intact, no focal neuro deficits Psych: Alert, oriented, appropriate affect - Labs CBC & Chem 7: 09/05/18 05:57 09/05/18 05:57 Labs: Abnormal Lab Results - Last 24 Hours (Table) 09/04/18 09/04/18 09/04/18 Range/Units 06:03 07:54 12:05 RBC (3.80-5.40) m/uL Hgb (11.4-16.0) gm/dL Hct (34.0-46.0) % RDW (11.5-15.5) % Sodium (137-145) mmol/L BUN (7-17) mg/dL Creatinine (0.52-1.04) mg/dL POC Glucose (mg/dL) 106 H (75-99) mg/dL Insulin Level 1.0 L (3.0-25.0) mIU/mL Calcium (8.4-10.2) mg/dL Iron 22 L (50-170) ug/dL TIBC 203 L (228-460) ug/dL Iron Saturation 10.84 L (12.00-45.00) Ferritin 988.0 H (10.0-291.0) ng/mL 09/04/18 09/04/18 09/05/18 Range/Units 16:40 21:04 00:15 RBC (3.80-5.40) m/uL Hgb (11.4-16.0) gm/dL Hct (34.0-46.0) % RDW (11.5-15.5) % Sodium (137-145) mmol/L BUN (7-17) mg/dL Creatinine (0.52-1.04) mg/dL POC Glucose (mg/dL) 109 H 129 H 135 H (75-99) mg/dL Insulin Level (3.0-25.0) mIU/mL Calcium (8.4-10.2) mg/dL Iron (50-170) ug/dL TIBC (228-460) ug/dL Iron Saturation (12.00-45.00) Ferritin (10.0-291.0) ng/mL 09/05/18 09/05/18 09/05/18 Range/Units 04:01 05:57 05:57 RBC 3.04 L (3.80-5.40) m/uL Hgb 8.9 L D (11.4-16.0) gm/dL Hct 27.5 L (34.0-46.0) % RDW 18.1 H (11.5-15.5) % Sodium 136 L (137-145) mmol/L BUN 49 H (7-17) mg/dL Creatinine 1.75 H (0.52-1.04) mg/dL POC Glucose (mg/dL) 114 H (75-99) mg/dL Insulin Level (3.0-25.0) mIU/mL Calcium 7.5 L (8.4-10.2) mg/dL Iron (50-170) ug/dL TIBC (228-460) ug/dL Iron Saturation (12.00-45.00) Ferritin (10.0-291.0) ng/mL 09/05/18 Range/Units 08:50 RBC (3.80-5.40) m/uL Hgb (11.4-16.0) gm/dL Hct (34.0-46.0) % RDW (11.5-15.5) % Sodium (137-145) mmol/L BUN (7-17) mg/dL Creatinine (0.52-1.04) mg/dL POC Glucose (mg/dL) 126 H (75-99) mg/dL Insulin Level (3.0-25.0) mIU/mL Calcium (8.4-10.2) mg/dL Iron (50-170) ug/dL TIBC (228-460) ug/dL Iron Saturation (12.00-45.00) Ferritin (10.0-291.0) ng/mL Assessment and Plan Assessment: Hypoglycemia - likely due to adrenal insufficency -Accu-Cheks every 4 hours -D10 drip decreased Acute systolic CHF with EF <20% -Continue with Lasix -on metoprolol 12.5, no ACEI due to MOE and increased Cr, on imdur - Ferritin above normal - TSH normal Acute kidney injury with probable chronic kidney disease- improving, baseline creatinine 2.04 in July but have been normal before that, likely component of cardiorenal syndrome. -Avoid nephrotoxic agents other than Lasix which as needed to optimize fluid status - nephrorecs appreciated - follow BMP closely with diuresis Sticky platelet syndrome, with recent renal infract - continue lovenox - follow with heme/onc out of [facility] Severe protein calorie malnutrition - continue megace... Needs to d/w heme onc as outpatient as it increases risk of thromboembolism - dietitian recs PAD, CAD - ASA, Plavix, imdur Mild transaminitis - chronic in nature - continued outpatient evaluation Anemia of chronic disease - follow-up as outpatient, appears better than baseline - Stage II Sacral pressure ulcer, POA - off loading - Dr. Emigdio garcia appreciated,optifoam dressing Hyperkalemia, resolved DVT prophylaxis: Lovenox Discussed with: Patient Anticipated discharge: [address]: SNF A total of 35 minutes was spent on the care of this complex patient more than 50 % of the time was spent in counseling and care coordination.
[2018-09-06 01:12] LABS: Glucose,Whole Blood 105 mg/dL (75-99)
[2018-09-06 04:28] LABS: Glucose,Whole Blood 80 mg/dL (75-99)
[2018-09-06 06:27] LABS: Glucose,Whole Blood 85 mg/dL (75-99)
[2018-09-06 08:09] LABS: Glucose,Whole Blood 79 mg/dL (75-99)
[2018-09-06 08:10] LABS: Anisocytosis Slight; HCT 27.2 % (34.0-46.0); HGB 8.9 gm/dL (11.4-16.0); Hypochromasia Slight; MCH 29.8 pg (25.0-35.0); MCHC 32.8 g/dL (31.0-37.0); MCV 90.7 fL (80.0-100.0); Mean Platelet Volume 7.4; Platelet Count 277 k/uL (150-450); WBC 5.5 k/uL (3.8-10.6)
[2018-09-06 08:36] LABS: Calcium 7.3 mg/dL (8.4-10.2); Magnesium 1.6 mg/dL (1.6-2.3); Potassium 3.4 mmol/L (3.5-5.1)
[2018-09-06] MEDS: ATORVASTATIN 40 MG TAB PO SCH (09:02)
[2018-09-06] MEDS: SODIUM BICARBONATE TAB 650 MG TAB PO SCH (09:02)
[2018-09-06] MEDS: OXYBUTYNIN CHLORIDE 5 MG TAB PO SCH ×2 (09:02→16:17)
[2018-09-06] MEDS: PANTOPRAZOLE 40 MG TABLET PO SCH (09:02)
[2018-09-06] MEDS: TORSEMIDE 20 MG TAB PO SCH (09:02)
[2018-09-06] MEDS: CLOPIDOGREL 75 MG TAB PO SCH (09:02)
[2018-09-06] MEDS: ASPIRIN 81 MG PO SCH (09:02)
[2018-09-06] MEDS: ENOXAPARIN 40 MG/0.4 ML SYRINGE SQ SCH (09:02)
[2018-09-06] MEDS: MEGESTROL 400 MG/10 ML CUP PO SCH (09:02)
[2018-09-06] MEDS: ISOSORBIDE MONONITRATE ER 30 MG TAB.ER.24H PO SCH (09:02)
[2018-09-06] MEDS: HYDROCORTISONE 10 MG TAB PO SCH ×2 (09:02→16:17)
[2018-09-06] MEDS: METOPROLOL TARTRATE 12.5 MG TAB PO SCH ×2 (09:02→22:08)
[2018-09-06] MEDS: MORPHINE SULFATE ER 100 MG TABLET PO SCH ×2 (09:03→22:08)
[2018-09-06] MEDS ORDERED: POTASSIUM CHLORIDE ER 20 MEQ TAB.ER PO STA (10:08)
--- NOTE | 2018-09-06 10:24 | P.PN ---
Subjective Patient is seen in follow-up for acute kidney injury. Baseline creatinine is 1. It was elevated at 2.38 on admission and is 1.7 today. Patient presented with dyspnea. She is noted to have systolic CHF with ejection fraction of less than 20%. She received IV diuretics and is now maintained on Demadex 20 mg once daily. She is nonoliguric. Urinalysis is benign. Dyspnea improved. No active complaints at this time. Vital signs are stable. General: The patient appeared well nourished and normally developed. HEENT: Head exam is unremarkable. Neck is without jugular venous distension. LUNGS: Lungs are clear to auscultation and percussion. Breath sounds decreased. HEART: Rate and Rhythm are regular. First and second heart sounds normal. No murmurs, rubs or gallops. ABDOMEN: Abdominal exam reveals normal bowel sounds. Non-tender and non- distended. No evidence of peritonitis. EXTREMITITES: Bilateral lower extremity amputations noted. Objective - Vital Signs Vital signs: Vital Signs Temp 97.0 F L 09/06/18 04:00 Pulse 74 09/06/18 04:00 Resp 18 09/06/18 04:00 BP 111/74 09/06/18 04:00 Pulse Ox 92 L 09/06/18 04:00 Intake & Output 09/05/18 09/06/18 09/06/18 18:59 06:59 18:59 Intake Total 1167 80 Output Total 1450 725 Balance -283 -645 Weight 38.5 kg Intake: Intake, IV Titration 160 80 Amount Dextrose 10% in Water 500 160 80 ml In Empty Bag 1 bag @ 10 mls/hr IV .Q24H [facility] Rx #:[id number] Oral 1007 Output: Urine 1450 725 Other: Voiding Method Indwelling Catheter Indwelling Catheter # Voids 2 - Labs CBC & Chem 7: 09/06/18 07:22 09/06/18 07:22 Labs: Abnormal Lab Results - Last 24 Hours (Table) 09/05/18 09/05/18 09/06/18 Range/Units 16:54 20:58 00:53 RBC (3.80-5.40) m/uL Hgb (11.4-16.0) gm/dL Hct (34.0-46.0) % RDW (11.5-15.5) % Potassium (3.5-5.1) mmol/L Carbon Dioxide (22-30) mmol/L BUN (7-17) mg/dL Creatinine (0.52-1.04) mg/dL POC Glucose (mg/dL) 130 H 148 H 105 H (75-99) mg/dL Calcium (8.4-10.2) mg/dL 09/06/18 09/06/18 Range/Units 07:22 07:22 RBC 3.00 L (3.80-5.40) m/uL Hgb 8.9 L (11.4-16.0) gm/dL Hct 27.2 L (34.0-46.0) % RDW 18.0 H (11.5-15.5) % Potassium 3.4 L (3.5-5.1) mmol/L Carbon Dioxide 33 H (22-30) mmol/L BUN 48 H (7-17) mg/dL Creatinine 1.70 H (0.52-1.04) mg/dL POC Glucose (mg/dL) (75-99) mg/dL Calcium 7.3 L (8.4-10.2) mg/dL Assessment and Plan Plan: Assessment: 1. Acute kidney injury secondary to ATN secondary to cardiorenal syndrome. Creatinine down to 1.7 today. Urinalysis is benign. No evidence of hydronephrosis noted on renal ultrasound. 2. Volume overload. Improving with diuresis. 3. Metabolic acidosis secondary to acute kidney injury. Resolved. 4. Systolic CHF with ejection fraction of less than 20%. 5. 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 7. Hypomagnesemia secondary to diuresis. 8. Hypokalemia secondary to diuresis. Plan: Maintain Demadex 20 mg orally once daily. Avoid nephrotoxins. Discontinue oral sodium bicarbonate. Repeat electrolytes the morning. Replace magnesium. 2 g IV today. Replace potassium. 40 mEq once today. Anticipate discharge soon. Repeat BMP in 3-4 days and follow up outpatient in the next 1-2 weeks.
[2018-09-06 12:05] LABS: Glucose,Whole Blood 101 mg/dL (75-99)
[2018-09-06] MEDS: MAGNESIUM SULFATE-D5W PMX 1 GM in DEXTROSE/WATER 1 100ML.BAG IVPB SCH ×2 (12:52→16:17)
--- NOTE | 2018-09-06 16:01 | P.PN ---
Subjective Progress Note Date: 09/06/18 (Delayed charting patient patient seen at approximately 10 AM) Principal diagnosis: Shortness of breath Patient is a 48-year-old -Turkmen female with a history of sticky platelet syndrome, multiple DVTs, pulmonary embolism, and peripheral arterial disease who presented in with right-sided chest pain and shortness of breath. In the ER she underwent an extensive evaluation. On arrival her vital signs showed a slight hypoxemia with an O2 sat of 90% on room air. Laboratory analysis showed a hyperchloremic metabolic acidosis as well as an elevated creatinine at 2.38. She had slightly elevated liver enzymes. A BNP was 127, 000. Initial troponin was negative. EKG did not show any signs of acute ischemia. She was given a dose of morphine, Lasix, and DuoNeb. Arrangements were made for admission. She was found to have pulmonary edema and her Lasix was continued. Cardiology was consulted and echocardiogram was ordered. Her EF was found to be low at less than 20%. Cardio transitioned her to metoprolol. Her BP was low the morning of 09/02 and he hydralazine was stopped. Her BP was again low on the morning of 09/03 and her metoprolol was held. Here blood sugar was low again on the morning of 09/04 without any insulin administration. She was started on D 10 gtt which was decreased on 09/05. She appears to have possible adrenal insufficiency and she was started on cortef with plans for ACTH stim test (low glucose, hyperkalemia, low BP). She will be discharged to [facility] in the AM. Patient seen and examined at bedside. Feeling well. Denies any chest heaviness , breathing is at baseline. No nausea or vomiting. States that she does not like the food here Leave the hospital. We discussed again the need to go to rehab and she is okay with this plan as long his rehab is near [place] on. I was updated by care management that rehab likely in a.m. as [facility] has accepted the patient. Objective - Vital Signs Vital signs: Vital Signs Temp 97 F L 09/06/18 12:45 Pulse 101 H 09/06/18 12:45 Resp 18 09/06/18 12:45 BP 104/73 09/06/18 12:45 Pulse Ox 100 09/06/18 12:45 Intake & Output 1009/06/18 09/06/18 18:59 06:59 18:59 Intake Total 1167 80 20 Output Total 1450 725 Balance -283 -645 20 Weight 38.5 kg 38.5 kg Intake: Intake, IV Titration 160 80 20 Amount Dextrose 10% in Water 500 160 80 20 ml In Empty Bag 1 bag @ 10 mls/hr IV .Q24H [facility] Rx #:[id number] Oral 1007 Output: Urine 1450 725 Other: Voiding Method Indwelling Catheter Indwelling Catheter Indwelling Catheter # Voids 2 # Bowel Movements 0 - Exam General: Non toxic, no distress, appears at stated age, cachectic Derm: warm, dry Head: atraumatic, normocephalic, symmetric Eyes: EOMI, no lid lag, anicteric sclera Mouth: no lip lesion, mucus membranes moist Cardiovascular: S1S2 reg, no murmur, no JVD Lungs: CTA bilateral, no rhonchi, no rales , no accessory muscle use Abdominal: soft, nontender to palpation, no guarding, no appreciable organomegaly Ext: gross muscle atrophy of hip flexors, trace edema R LE, no contractures, LLE AKA and RLE BKA Neuro: CN II-XI grossly intact, no focal neuro deficits Psych: Alert, oriented, appropriate affect - Labs CBC & Chem 7: 09/06/18 07:22 09/06/18 07:22 Labs: Abnormal Lab Results - Last 24 Hours (Table) 09/05/18 09/05/18 09/06/18 Range/Units 16:54 20:58 00:53 RBC (3.80-5.40) m/uL Hgb (11.4-16.0) gm/dL Hct (34.0-46.0) % RDW (11.5-15.5) % Potassium (3.5-5.1) mmol/L Carbon Dioxide (22-30) mmol/L BUN (7-17) mg/dL Creatinine (0.52-1.04) mg/dL POC Glucose (mg/dL) 130 H 148 H 105 H (75-99) mg/dL Calcium (8.4-10.2) mg/dL 09/06/18 09/06/18 09/06/18 Range/Units 07:22 07:22 12:01 RBC 3.00 L (3.80-5.40) m/uL Hgb 8.9 L (11.4-16.0) gm/dL Hct 27.2 L (34.0-46.0) % RDW 18.0 H (11.5-15.5) % Potassium 3.4 L (3.5-5.1) mmol/L Carbon Dioxide 33 H (22-30) mmol/L BUN 48 H (7-17) mg/dL Creatinine 1.70 H (0.52-1.04) mg/dL POC Glucose (mg/dL) 101 H (75-99) mg/dL Calcium 7.3 L (8.4-10.2) mg/dL Assessment and Plan Assessment: Hypoglycemia with probable adrenal insufficiency - start cortef 5mg TID -Accu-Cheks every 4 hours -D10 drip stopped, monitored blood sugar - outpatient endocrine evaluation with Dr. Thompson Acute systolic CHF with EF <20% - Continue with demadex - on metoprolol 12.5, no ACEI due to MOE and increased Cr, on imdur - Ferritin above normal - TSH normal - Plan is for follow-up with Dr. Gary in 1-2 weeks for ischemic evaluation Acute kidney injury due to ATN, likely component of cardiorenal syndrome. (CKD ruled out) - improving - nephrorecs appreciated - follow BMP closely with diuresis Sticky platelet syndrome, with recent renal infract - continue lovenox.. now 40 mg once dialy - follow with heme/onc out of [facility] Severe protein calorie malnutrition - continue megace... Needs to d/w heme onc as outpatient as it increases risk of thromboembolism - dietitian recs: considering tube feedings will delay until cardiac eval complete PAD, CAD - ASA, Plavix, imdur Mild transaminitis - chronic in nature - continued outpatient evaluation Anemia of chronic disease - follow-up as outpatient, appears better than baseline Stage II Sacral pressure ulcer, POA - off loading - Dr. Emigdio garcia appreciated,optifoam dressing Hyperkalemia, resolved DVT prophylaxis: Lovenox Discussed with: Patient Anticipated discharge: [address]: SNF A total of 35 minutes was spent on the care of this complex patient more than 50 % of the time was spent in counseling and care coordination.
[2018-09-06 17:13] LABS: Glucose,Whole Blood 168 mg/dL (75-99)
[2018-09-06 19:30] LABS: Hemoglobin A1C 5.6 % (4.0-6.0)
[2018-09-06 21:01] LABS: Glucose,Whole Blood 116 mg/dL (75-99)
[2018-09-06] MEDS: QUEtiapine 25 MG TAB PO SCH (22:08)
--- NOTE | 2018-09-06 23:37 | P.PN ---
Subjective Progress Note Date: 09/06/18 48-year-old Afro-[place] woman presents to Hospital with significant shortness of breath and increasing weakness. 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 She had acute kidney injury with concerns to renal infarction and constantly she was transferred to [facility] where she's received her care regarding her many medical troubles. She previously had severe arterial disease also is noted by the lower extremity amputations and the notation of angiography, and aorto femoral bypasses. The patient is cared for by her mother in the home setting. She is requiring total care and although she is conversational the content of her speech is quite poor at this time. She relates that she is not very uncomfortable. Her shortness of breath is improved. She is being treated for new congestive heart failure and is feeling better. There is evidence of pressure ulceration to the coccyx for which the consultation has been requested. Apparently it started after her recent stay at the outside hospital. 09/03/2018 patient with some improvement in her status. She has chronic pain and seems comfortable at this time. His related that she was taking some narcotics from home originally during her stay. Resulting in some waxing and waning mental status some hypotension. Seems to be slightly improved today. Continues to have a bizarre affect. 09/06/2018 patient is stable without acute change of her status. Awaiting placement to rehabilitation Objective - Vital Signs Vital signs: Vital Signs Temp 98.5 F 09/06/18 16:10 Pulse 105 H 09/06/18 16:10 Resp 18 09/06/18 16:10 BP 118/81 09/06/18 16:10 Pulse Ox 100 09/06/18 16:10 Intake & Output 09/06/18 09/06/18 09/07/18 06:59 18:59 06:59 Intake Total 80 410 Output Total 725 Balance -645 410 Weight 38.5 kg 38.5 kg Intake: Intake, IV Titration 80 20 Amount Dextrose 10% in Water 500 80 20 ml In Empty Bag 1 bag @ 10 mls/hr IV .Q24H [facility] Rx #:[id number] Oral 390 Output: Urine 725 Other: Voiding Method Indwelling Catheter Indwelling Catheter # Bowel Movements 0 - Exam 48-year-old woman who looks considerably older than her stated age she is cachectic HEENT: Anicteric conjunctiva are pink and moist nasal mucosa grossly intact without significant lesions, there is no thrush. Full dentures in place Neck: The neck is supple without significant lymphadenopathy or thyromegaly. Lungs: Symmetrical air entry is noted there are few expiratory wheezes basilar crackles are noted Heart: Regular audible S1 and S2 soft S4 2/6 systolic murmur left sternal border , nondisplaced PMI no heave or thrill Abdomen: Positive bowel sounds soft and nontender without palpable masses or organomegaly. There was no guarding or rebound. Extremities: Upper extremities intact IV site is without difficulty. Looks reveal evidence of the prior amputations the amputation sites are well-healed. Skin evidence of the stage II pressure ulceration present on admission to the [facility]. There is not significant drainage at this time it is minimally tender. No other ulcerations are seen. Neuro: Awake alert oriented to person may be oriented to place but thought she was at [facility] and then [facility]. She moves extremities freely struggles with commands. Upon arrival she is sitting up in the chair and seems comfortable. - Labs CBC & Chem 7: 09/06/18 07:22 09/06/18 07:22 Labs: Abnormal Lab Results - Last 24 Hours (Table) 09/06/18 09/06/18 09/06/18 Range/Units 00:53 07:22 07:22 RBC 3.00 L (3.80-5.40) m/uL Hgb 8.9 L (11.4-16.0) gm/dL Hct 27.2 L (34.0-46.0) % RDW 18.0 H (11.5-15.5) % Potassium 3.4 L (3.5-5.1) mmol/L Carbon Dioxide 33 H (22-30) mmol/L BUN 48 H (7-17) mg/dL Creatinine 1.70 H (0.52-1.04) mg/dL POC Glucose (mg/dL) 105 H (75-99) mg/dL Calcium 7.3 L (8.4-10.2) mg/dL 09/06/18 09/06/18 09/06/18 Range/Units 12:01 17:06 21:00 RBC (3.80-5.40) m/uL Hgb (11.4-16.0) gm/dL Hct (34.0-46.0) % RDW (11.5-15.5) % Potassium (3.5-5.1) mmol/L Carbon Dioxide (22-30) mmol/L BUN (7-17) mg/dL Creatinine (0.52-1.04) mg/dL POC Glucose (mg/dL) 101 H 168 H 116 H (75-99) mg/dL Calcium (8.4-10.2) mg/dL Laboratory Results WBC 5.5 k/uL (3.8-10.6) 09/06/18 07:22 RBC 3.00 m/uL (3.80-5.40) L 09/06/18 07:22 Hgb 8.9 gm/dL (11.4-16.0) L 09/06/18 07:22 Hct 27.2 % (34.0-46.0) L 09/06/18 07:22 MCV 90.7 fL (80.0-100.0) 09/06/18 07:22 MCH 29.8 pg (25.0-35.0) 09/06/18 07:22 MCHC 32.8 g/dL (31.0-37.0) 09/06/18 07:22 RDW 18.0 % (11.5-15.5) H 09/06/18 07:22 Plt Count 277 k/uL (150-450) 09/06/18 07:22 Neutrophils % 62 % 09/01/18 03:50 Lymphocytes % 31 % 09/01/18 03:50 Monocytes % 5 % 09/01/18 03:50 Eosinophils % 1 % 09/01/18 03:50 Basophils % 1 % 09/01/18 03:50 Neutrophils # 3.2 k/uL (1.3-7.7) 09/01/18 03:50 Lymphocytes # 1.6 k/uL (1.0-4.8) 09/01/18 03:50 Monocytes # 0.3 k/uL (0-1.0) 09/01/18 03:50 Eosinophils # 0.1 k/uL (0-0.7) 09/01/18 03:50 Basophils # 0.0 k/uL (0-0.2) 09/01/18 03:50 Manual Slide Review Performed 09/01/18 03:50 Hypochromasia Slight 09/06/18 07:22 Anisocytosis Slight 09/06/18 07:22 PT 11.2 sec (9.0-12.0) 08/31/18 15:15 INR 1.2 (<1.2) H 08/31/18 15:15 APTT 23.4 sec (22.0-30.0) 08/31/18 15:15 Sodium 139 mmol/L (137-145) 09/06/18 07:22 Potassium 3.4 mmol/L (3.5-5.1) L 09/06/18 07:22 Chloride 100 mmol/L (98-107) 09/06/18 07:22 Carbon Dioxide 33 mmol/L (22-30) H 09/06/18 07:22 Anion Gap 6 mmol/L 09/06/18 07:22 BUN 48 mg/dL (7-17) H 09/06/18 07:22 Creatinine 1.70 mg/dL (0.52-1.04) H 09/06/18 07:22 Est GFR (CKD-EPI)AfAm 40 (>60 ml/min/1.73 sqM) 09/06/18 07:22 Est GFR (CKD-EPI)NonAf 35 (>60 ml/min/1.73 sqM) 09/06/18 07:22 Glucose 74 mg/dL (74-99) 09/06/18 07:22 POC Glucose (mg/dL) 116 mg/dL (75-99) H 09/06/18 21:00 POC Glu Financial Sales Representative Ankush Cordero 09/06/18 21:[address] Glu mg/dL 114 09/06/18 07:22 Hemoglobin A1c 5.6 % (4.0-6.0) 09/06/18 07:22 Insulin Level 1.0 mIU/mL (3.0-25.0) L 09/04/18 07:54 C-Peptide 2.31 ng/mL (0.81-3.85) 09/04/18 07:54 Calcium 7.3 mg/dL (8.4-10.2) L 09/06/18 07:22 Magnesium 1.6 mg/dL (1.6-2.3) 09/06/18 07:22 Iron 22 ug/dL (50-170) L 09/04/18 06:03 TIBC 203 ug/dL (228-460) L 09/04/18 06:03 Iron Saturation 10.84 (12.00-45.00) L 09/04/18 06:03 Ferritin 988.0 ng/mL (10.0-291.0) H 09/04/18 06:03 Total Bilirubin 0.4 mg/dL (0.2-1.3) 09/01/18 03:50 AST 69 U/L (14-36) H 09/01/18 03:50 ALT 56 U/L (9-52) H 09/01/18 03:50 Alkaline Phosphatase 257 U/L (38-126) H 09/01/18 03:50 Total Creatine Kinase 36 U/L (30-135) 08/31/18 15:15 CK-MB (CK-2) 2.3 ng/mL (0.0-2.4) 08/31/18 15:15 CK-MB (CK-2) Rel Index 6.4 08/31/18 15:15 Troponin I 0.013 ng/mL (0.000-0.034) 09/01/18 03:50 NT-Pro-B Natriuret Pep 772171 pg/mL 08/31/18 15:15 Total Protein 6.2 g/dL (6.3-8.2) L 09/01/18 03:50 Albumin 2.4 g/dL (3.5-5.0) L 09/01/18 03:50 TSH 1.220 mIU/L (0.465-4.680) 09/01/18 03:50 Cortisol 10 ug/dL 09/05/18 05:57 ACTH 12.70 pg/mL (0.00-45.99) 09/04/18 10:21 Urine Color Light Yellow 09/01/18 19:24 Urine Appearance Clear (Clear) 09/01/18 19:24 Urine pH 5.0 (5.0-8.0) 09/01/18 19:24 Ur Specific [place] 1.007 (1.001-1.035) 09/01/18 19:24 Urine Protein Negative (Negative) 09/01/18 19:24 Urine Glucose (UA) Negative (Negative) 09/01/18 19:24 Urine Ketones Negative (Negative) 09/01/18 19:24 Urine Blood Negative (Negative) 09/01/18 19:24 Urine Nitrite Negative (Negative) 09/01/18 19:24 Urine Bilirubin Negative (Negative) 09/01/18 19:24 Urine Urobilinogen <2.0 mg/dL (<2.0) 09/01/18 19:24 Ur Leukocyte Esterase Negative (Negative) 09/01/18 19:24 Assessment and Plan (1) Acute pulmonary edema Current Visit: Yes Status: Acute Code(s): J81.0 - ACUTE PULMONARY EDEMA SNOMED Code(s): 53609134 (2) Sticky platelet syndrome Current Visit: Yes Status: Acute Code(s): D69.1 - QUALITATIVE PLATELET DEFECTS SNOMED Code(s): 704573655 (3) PVD (peripheral vascular disease) Current Visit: Yes Status: Acute Code(s): I73.9 - PERIPHERAL VASCULAR DISEASE, UNSPECIFIED SNOMED Code(s): 600274848 (4) Pressure ulcer of coccygeal region, stage 2 Narrative/Plan: 48-year-old woman presents to the emergency center with the shortness of breath which is now improved after admission and diuretic therapy. The urologic evaluation failure evidence of any obstruction at this time. Her pain is well controlled. She has a difficulty with her affect however the mother is not concerned appears to be about her baseline. Patient is evidence of the stage II pressure ulceration present on admission of her coccyx. The optifoam border dressing will be utilized to protect this area. Chest x-ray was evaluated revealing evidence of congestive heart failure but no azucena pneumonic infiltrates. The coccyx ulceration is not infected this time and no need for antibiotic therapy. 09/03/2018 patient is stable is likely will be transferred to rehab for ongoing care. Continue the protective foam dressing to the coccyx ulceration. 09/06/2018 patient is stable awaiting transfer to extended care facility for her care. Foam dressing can be utilized to the coccyx ulceration evidence of a new infection at this time. Current Visit: Yes Status: Acute Code(s): L89.152 - PRESSURE ULCER OF SACRAL REGION, STAGE 2 SNOMED Code(s): 917331068
[2018-09-07 00:34] LABS: Glucose,Whole Blood 117 mg/dL (75-99)
[2018-09-07] MEDS: HYDROCORTISONE 10 MG TAB PO SCH ×4 (02:01→20:52)
[2018-09-07] MEDS: OXYBUTYNIN CHLORIDE 5 MG TAB PO SCH ×2 (02:02→10:04)
[2018-09-07 04:07] LABS: Glucose,Whole Blood 88 mg/dL (75-99)
[2018-09-07 07:44] LABS: Calcium 7.6 mg/dL (8.4-10.2); Magnesium 2.1 mg/dL (1.6-2.3); Potassium 4.2 mmol/L (3.5-5.1)
[2018-09-07 08:16] LABS: Glucose,Whole Blood 70 mg/dL (75-99)
[2018-09-07] MEDS: ENOXAPARIN 40 MG/0.4 ML SYRINGE SQ SCH (10:03)
[2018-09-07] MEDS: ASPIRIN 81 MG PO SCH (10:04)
[2018-09-07] MEDS: CLOPIDOGREL 75 MG TAB PO SCH (10:04)
[2018-09-07] MEDS: PANTOPRAZOLE 40 MG TABLET PO SCH (10:04)
[2018-09-07] MEDS: METOPROLOL TARTRATE 12.5 MG TAB PO SCH ×2 (10:04→20:47)
[2018-09-07] MEDS: MEGESTROL 400 MG/10 ML CUP PO SCH (10:04)
[2018-09-07] MEDS: ATORVASTATIN 40 MG TAB PO SCH (10:04)
[2018-09-07] MEDS: TORSEMIDE 20 MG TAB PO SCH (10:05)
[2018-09-07] MEDS: ISOSORBIDE MONONITRATE ER 30 MG TAB.ER.24H PO SCH (10:06)
[2018-09-07] MEDS: MORPHINE SULFATE ER 100 MG TABLET PO SCH ×2 (10:06→20:48)
--- NOTE | 2018-09-07 10:51 | P.DS ---
Providers Date of admission: 08/31/18 16:44 Expected date of discharge: 09/07/18 Attending physician: Sage George MD Consults: 08/31/18 16:43 Consult Physician Routine Consulting Provider: Davis Curiel Consult Reason/Comments: chf Do you want consulting provider notified?: Yes Consult Physician Routine Consulting Provider: Dorothea Calvin Consult Reason/Comments: arf Do you want consulting provider notified?: Yes 09/01/18 09:28 Consult Physician Routine Consulting Provider: Víctor Beal Consult Reason/Comments: evaluation of pressure ulcer on coccyx Do you want consulting provider notified?: Yes Primary care physician: Garcia Resendez MD Hospital Course: Patient is a 48-year-old -Mal[place]ian female with a history of sticky platelet syndrome, multiple DVTs, pulmonary embolism, and peripheral arterial disease who presented in with right-sided chest pain and shortness of breath. In the ER she underwent an extensive evaluation. Initial troponin was negative. EKG did not show any signs of acute ischemia. She was given a dose of morphine, Lasix, and DuoNeb. Arrangements were made for admission. She was found to have pulmonary edema and her Lasix was continued. Cardiology was consulted and echocardiogram showed EF of 20%. Cardio transitioned her to metoprolol. Her BP was low the morning of 09/02 and he hydralazine was stopped. Her blood sugar was low again on the morning of 09/04 without any insulin administration. She appears to have possible adrenal insufficiency and she was started on cortef with plans for ACTH stim test (low glucose, hyperkalemia, low BP). She will be discharged to [facility] who is a dentist of her medical problems 1. Suspected adrenal insufficiency, started on Cortef 3 times a day. Plan to follow-up with endocrinology in the office in one week 2. Acute on chronic systolic heart failure now with exacerbation. Improved with diuresis. Regimen adjusted to Demadex 3. Acute kidney injury due to ATN and possible cardiorenal syndrome, creatinine improved. On discharge creatinine is 1.5. Avoid nephrotoxins. Follow up with nephrology as directed 4. 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 Currently on dual antiplatelet therapy and daily subcu Lovenox. [place] [facility] [place]. Peripheral arterial disease and coronary artery disease, continue medical therapy 6. History of bilateral lower extremity amputation 7. Stage II sacral pressure ulcer with no evidence of infection. Seen by Dr. Beal during this admission. Optifoam dressing. 8. Obstructive uropathy, plan for voiding trial and discontinue Joyce in the next 3-5 days. If patient's is retaining urine consider discontinuation of oxybutynin. Patient will be discharged to [facility] for physical therapy Patient Condition at Discharge: Fair Plan - Discharge Summary Discharge Rx Participant: Yes New Discharge Prescriptions: New Hydrocortisone [Cortef] 5 mg PO TID tab Metoprolol Tartrate [Lopressor] 12.5 mg PO BID #60 tab Torsemide [Demadex] 20 mg PO DAILY tab Continue Polyethylene Glycol 3350 [Miralax] 17 gm PO DAILY PRN PRN Reason: Constipation Clopidogrel [Plavix] 75 mg PO DAILY tab Cyclobenzaprine [Flexeril] 10 mg PO TID PRN tab PRN Reason: Muscle Spasm Mirtazapine [Remeron] 30 mg PO HS PRN tab PRN Reason: Insomnia Oxybutynin Chloride [Ditropan] 5 mg PO TID tab QUEtiapine [SEROquel] 25 mg PO HS Isosorbide Mononitrate ER [Imdur] 30 mg PO DAILY Aspirin EC [Ecotrin Low Dose] 81 mg PO DAILY Sennosides [Senna] 8.6 mg PO BID PRN PRN Reason: Constipation Docusate [Colace] 100 mg PO BID PRN PRN Reason: Constipation Megestrol [Megace] 400 mg PO DAILY Pantoprazole Sodium [Protonix] 40 mg PO DAILY Atorvastatin [Lipitor] 40 mg PO DAILY Enoxaparin [Lovenox] 40 mg SQ Q12H Morphine Sulfate [Ms Contin] 100 mg PO Q12H #6 tablet.er Discontinued HYDROmorphone HCL [Dilaudid] 8 mg PO Q8HR PRN PRN Reason: Pain Furosemide [Lasix] 10 mg PO DAILY hydrALAZINE HCL 10 mg PO TID Diltiazem Oral [Cardizem Oral] 30 mg PO QID Discharge Medication List Polyethylene Glycol 3350 [Miralax] 17 gm PO DAILY PRN 08/01/18 [History] Clopidogrel [Plavix] 75 mg PO DAILY tab 08/03/18 [Rx] Cyclobenzaprine [Flexeril] 10 mg PO TID PRN tab 08/03/18 [Rx] Mirtazapine [Remeron] 30 mg PO HS PRN tab 08/03/18 [Rx] Oxybutynin Chloride [Ditropan] 5 mg PO TID tab 08/03/18 [Rx] Aspirin EC [Ecotrin Low Dose] 81 mg PO DAILY 08/31/18 [History] Atorvastatin [Lipitor] 40 mg PO DAILY 08/31/18 [History] Docusate [Colace] 100 mg PO BID PRN 08/31/18 [History] Enoxaparin [Lovenox] 40 mg SQ Q12H 08/31/18 [History] Isosorbide Mononitrate ER [Imdur] 30 mg PO DAILY 08/31/18 [History] Megestrol [Megace] 400 mg PO DAILY 08/31/18 [History] Pantoprazole Sodium [Protonix] 40 mg PO DAILY 08/31/18 [History] QUEtiapine [SEROquel] 25 mg PO HS 08/31/18 [History] Sennosides [Senna] 8.6 mg PO BID PRN 08/31/18 [History] Hydrocortisone [Cortef] 5 mg PO TID tab 09/07/18 [Rx] Metoprolol Tartrate [Lopressor] 12.5 mg PO BID #60 tab 09/07/18 [Rx] Morphine Sulfate [Ms Contin] 100 mg PO Q12H #6 tablet.er 09/07/18 [Rx] Torsemide [Demadex] 20 mg PO DAILY tab 09/07/18 [Rx] Follow up Appointment(s)/Referral(s): Jalen Gary MD [STAFF PHYSICIAN] - 09/27/18 2:15 pm (THURSDAY) Garcia Resendez MD [Primary Care Provider] - 09/09/18 11:45 am Xuan Thompson MD [STAFF PHYSICIAN] - 1 Week Christopher Handley DO [STAFF PHYSICIAN] - 1 Week Patient Instructions/Handouts: Heart Failure (DC) Activity/Diet/Wound Care/Special Instructions: ECF low sodium diet, activity as tolerated BMP in 3-4 days DX: MOE Discharge Disposition: TRANSFER TO SNF/ECF
--- NOTE | 2018-09-07 11:40 | P.PN ---
Subjective Patient is seen in follow-up for acute kidney injury. Baseline creatinine is 1. It was elevated at 2.38 on admission and is 1.51 today. Patient presented with dyspnea. She is noted to have systolic CHF with ejection fraction of less than 20%. She received IV diuretics and is now maintained on Demadex 20 mg once daily. She is nonoliguric. Urinalysis is benign. Dyspnea improved. No active complaints at this time. Vital signs are stable. General: The patient appeared well nourished and normally developed. HEENT: Head exam is unremarkable. Neck is without jugular venous distension. LUNGS: Lungs are clear to auscultation and percussion. Breath sounds decreased. HEART: Rate and Rhythm are regular. First and second heart sounds normal. No murmurs, rubs or gallops. ABDOMEN: Abdominal exam reveals normal bowel sounds. Non-tender and non- distended. No evidence of peritonitis. EXTREMITITES: Bilateral lower extremity amputations noted. Objective - Vital Signs Vital signs: Vital Signs Temp 98.2 F 09/07/18 08:10 Pulse 109 H 09/07/18 08:10 Resp 18 09/07/18 08:10 BP 127/88 09/07/18 08:10 Pulse Ox 96 09/07/18 08:10 Intake & Output 09/06/18 09/07/18 09/07/18 18:59 06:59 18:59 Intake Total 410 125 Output Total 600 Balance 410 -600 125 Weight 38.5 kg 41.5 kg Intake: Intake, IV Titration 20 Amount Dextrose 10% in Water 500 20 ml In Empty Bag 1 bag @ 10 mls/hr IV [facility] Rx #:[id number] Oral 390 125 Output: Urine 600 Other: Voiding Method Indwelling Catheter Indwelling Catheter Indwelling Catheter # Bowel Movements 0 - Labs CBC & Chem 7: 09/06/18 07:22 09/07/18 06:50 Labs: Abnormal Lab Results - Last 24 Hours (Table) 09/06/18 09/06/18 09/06/18 Range/Units 12:01 17:06 21:00 Carbon Dioxide (22-30) mmol/L BUN (7-17) mg/dL Creatinine (0.52-1.04) mg/dL Glucose (74-99) mg/dL POC Glucose (mg/dL) 101 H 168 H 116 H (75-99) mg/dL Calcium (8.4-10.2) mg/dL 09/07/18 09/07/18 09/07/18 Range/Units 00:32 06:50 08:04 Carbon Dioxide 32 H (22-30) mmol/L BUN 50 H (7-17) mg/dL Creatinine 1.51 H (0.52-1.04) mg/dL Glucose 67 L (74-99) mg/dL POC Glucose (mg/dL) 117 H 70 L (75-99) mg/dL Calcium 7.6 L (8.4-10.2) mg/dL Assessment and Plan Plan: Assessment: 1. Acute kidney injury secondary to ATN secondary to cardiorenal syndrome. Creatinine down to 1.51 today. Urinalysis is benign. No evidence of hydronephrosis noted on renal ultrasound. 2. Volume overload. Improving with diuresis. 3. Metabolic acidosis secondary to acute kidney injury. Resolved. 4. Systolic CHF with ejection fraction of less than 20%. 5. 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 7. Hypomagnesemia secondary to diuresis. Improved post replacement. 8. Hypokalemia secondary to diuresis. Improved post replacement. Plan: Maintain Demadex 20 mg orally once daily. Avoid nephrotoxins. Discontinued oral sodium bicarbonate. Repeat electrolytes the morning. DC Joyce catheter. Monitor serial postvoid residuals. Anticipate discharge soon. Repeat BMP in 3-4 days and follow up outpatient in the next 1-2 weeks.
[2018-09-07 12:30] LABS: Glucose,Whole Blood 84 mg/dL (75-99)
[2018-09-07 16:26] LABS: Glucose,Whole Blood 174 mg/dL (75-99)
[2018-09-07] MEDS: QUEtiapine 25 MG TAB PO SCH (20:51)
[2018-09-07 20:54] LABS: Glucose,Whole Blood 108 mg/dL (75-99)
[2018-09-07] MEDS: MORPHINE ORAL SOLN 10 MG/5 ML CUP PO PRN (23:07)
[2018-09-08 00:16] LABS: Glucose,Whole Blood 107 mg/dL (75-99)
[2018-09-08 03:47] LABS: Glucose,Whole Blood 104 mg/dL (75-99)
[2018-09-08 08:37] LABS: Glucose,Whole Blood 99 mg/dL (75-99)
--- NOTE | 2018-09-08 10:10 | P.PN ---
Subjective Patient is seen in follow-up for acute kidney injury. Baseline creatinine is 1. It was elevated at 2.38 on admission and 1.5 and as of yesterday. Patient presented with dyspnea. She is noted to have systolic CHF with ejection fraction of less than 20%. She received IV diuretics and is now maintained on Demadex 20 mg once daily. She is nonoliguric. Urinalysis is benign. Dyspnea improved. No active complaints at this time. Vital signs are stable. General: The patient appeared well nourished and normally developed. HEENT: Head exam is unremarkable. Neck is without jugular venous distension. LUNGS: Lungs are clear to auscultation and percussion. Breath sounds decreased. HEART: Rate and Rhythm are regular. First and second heart sounds normal. No murmurs, rubs or gallops. ABDOMEN: Abdominal exam reveals normal bowel sounds. Non-tender and non- distended. No evidence of peritonitis. EXTREMITITES: Bilateral lower extremity amputations noted. Objective - Vital Signs Vital signs: Vital Signs Temp 98.4 F 09/08/18 04:33 Pulse 104 H 09/08/18 04:33 Resp 16 09/08/18 04:33 BP 117/77 09/08/18 04:33 Pulse Ox 98 09/08/18 04:33 Intake & Output 09/07/18 09/08/18 09/08/18 18:59 06:59 18:59 Intake Total 250 Output Total 725 550 Balance -475 -550 Weight 41 kg Intake: Oral 250 Output: Urine 725 550 Other: Voiding Method Indwelling Catheter Bedpan # Voids 1 - Labs CBC & Chem 7: 09/06/18 07:22 09/07/18 06:50 Labs: Abnormal Lab Results - Last 24 Hours (Table) 09/07/18 09/07/18 09/08/18 Range/Units 16:18 20:53 00:14 POC Glucose (mg/dL) 174 H 108 H 107 H (75-99) mg/dL 09/08/18 Range/Units 03:45 POC Glucose (mg/dL) 104 H (75-99) mg/dL Assessment and Plan Plan: Assessment: 1. Acute kidney injury secondary to ATN secondary to cardiorenal syndrome. Creatinine down to 1.51 as of yesterday. Urinalysis is benign. No evidence of hydronephrosis noted on renal ultrasound. 2. Volume overload. Improving with diuresis. 3. Metabolic acidosis secondary to acute kidney injury. Resolved. 4. Systolic CHF with ejection fraction of less than 20%. 5. 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 7. Hypomagnesemia secondary to diuresis. Improved post replacement. 8. Hypokalemia secondary to diuresis. Improved post replacement. Plan: Maintain Demadex 20 mg orally once daily. Avoid nephrotoxins. Discontinued oral sodium bicarbonate. Repeat electrolytes the morning. Anticipate discharge soon. Repeat BMP in 3-4 days and follow up outpatient in the next 1-2 weeks. Avoid displacement to rehab.
[2018-09-08] MEDS: ASPIRIN 81 MG PO SCH ×2 (10:58→11:26)
[2018-09-08] MEDS: ATORVASTATIN 40 MG TAB PO SCH (10:58)
[2018-09-08] MEDS: CLOPIDOGREL 75 MG TAB PO SCH ×2 (11:00→11:27)
[2018-09-08] MEDS: ENOXAPARIN 40 MG/0.4 ML SYRINGE SQ SCH (11:00)
[2018-09-08] MEDS: HYDROCORTISONE 10 MG TAB PO SCH ×3 (11:01→21:54)
[2018-09-08] MEDS: MORPHINE SULFATE ER 100 MG TABLET PO SCH ×2 (11:25→21:54)
[2018-09-08] MEDS: METOPROLOL TARTRATE 12.5 MG TAB PO SCH ×2 (11:26→21:55)
[2018-09-08] MEDS: MEGESTROL 400 MG/10 ML CUP PO SCH (11:26)
[2018-09-08] MEDS: PANTOPRAZOLE 40 MG TABLET PO SCH (11:26)
[2018-09-08] MEDS: ISOSORBIDE MONONITRATE ER 30 MG TAB.ER.24H PO SCH (11:27)
[2018-09-08] MEDS: TORSEMIDE 20 MG TAB PO SCH (11:28)
[2018-09-08 11:48] LABS: Appearance,Urine Turbid (Clear); Bacteria,Urine Occasional /hpf; Bilirubin,Urine Negative (Negative); Blood,Urine Moderate (Negative); Color,Urine Yellow; Glucose,Urine (UA) Negative (Negative); Ketones,Urine Negative (Negative); Leukocyte Esterase,Urine Large (Negative); Nitrite,Urine Negative (Negative); Protein,Urine 1+ (Negative); RBC,Urine 48 /hpf (0-5); Specific Gravity,Urine 1.015 (1.001-1.035); WBC,Urine >182 /hpf (0-5)
[2018-09-08 12:08] LABS: Glucose,Whole Blood 128 mg/dL (75-99)
[2018-09-08] MEDS: MORPHINE ORAL SOLN 10 MG/5 ML CUP PO PRN (16:06)
[2018-09-08 16:07] LABS: Glucose,Whole Blood 107 mg/dL (75-99)
--- NOTE | 2018-09-08 16:11 | P.GSCN ---
History of Present Illness Consult date: 09/08/18 Reason for Consult: Urinary retention History of present illness: The patient is a 48-year-old female admitted through the emergency room on for evaluation of increasing shortness of breath and congestion. She has a history of congestive heart failure and was discovered to have an exacerbation of this along with pulmonary edema. BUN/creatinine on admission were 50/2.36. Renal ultrasound on 09/01 showed no evidence of hydronephrosis. A catheter was inserted on 09/01 and drained 270 mL. The patient has been treated with diuretics and her breathing has improved. Her creatinine was 1.51 on 09/07. Her catheter was removed yesterday and she was unable to void and had 652 mL drained when it was replaced today. The patient denies any previous history of urinary retention but says that she does not always feel that she voids completely. She says she usually voids every 2-3 hours during the day and at least 3 times at night. She has not had a bowel movement in 3 or 4 days but denies any abdominal pain related to this. Review of Systems - Constitutional Reports fatigue, Denies fever - Cardiovascular Reports shortness of breath - Respiratory Denies wheezing - Gastrointestinal Reports as per HPI - Genitourinary Genitourinary: Reports as per HPI Past Medical History Past Medical History: Asthma, Heart Failure, CVA/TIA, Deep Vein Thrombosis (DVT) , Osteoarthritis (OA), Pulmonary Embolus (PE), Renal Disease Additional Past Medical History / Comment(s): sticky platelet syndrome, bronchitis, anx/depression, falls History of Any Multi-Drug Resistant Organisms: None Reported Past Surgical History: Cholecystectomy, Coronary Bypass/CABG Additional Past Surgical History / Comment(s): ltBKA, left lower leg, aortic bypass right leg, right leg fasciotomy.pt stated had another vascular sx after the fasciotomy at [facility] unclear as to exactly what was done Rt BKA Past Anesthesia/Blood Transfusion Reactions: No Reported Reaction Additional Past Anesthesia/Blood Transfusion Reaction / Comm: pt stated has had a blood transfusion in past-no reaction Past Psychological History: Anxiety, Depression Smoking Status: Former smoker Past Alcohol Use History: None Reported Past Drug Use History: None Reported - Past Family History Mother Additional Family Medical History / Comment(s): MS, legally blind, cataracts Father Additional Family Medical History / Comment(s): Was younger when he , car accident Medications and Allergies Home Medications Medication Instructions Recorded Confirmed Type Polyethylene Glycol 3350 [Miralax] 17 gm PO DAILY PRN 08/01/18 08/31/18 History Clopidogrel [Plavix] 75 mg PO DAILY tab 08/03/18 08/31/18 Rx Cyclobenzaprine [Flexeril] 10 mg PO TID PRN tab 08/03/18 08/31/18 Rx Mirtazapine [Remeron] 30 mg PO HS PRN tab 08/03/18 08/31/18 Rx Aspirin EC [Ecotrin Low Dose] 81 mg PO DAILY 08/31/18 08/31/18 History Atorvastatin [Lipitor] 40 mg PO DAILY 08/31/18 08/31/18 History Docusate [Colace] 100 mg PO BID PRN 08/31/18 08/31/18 History Enoxaparin [Lovenox] 40 mg SQ Q12H 08/31/18 08/31/18 History Isosorbide Mononitrate ER [Imdur] 30 mg PO DAILY 08/31/18 08/31/18 History Megestrol [Megace] 400 mg PO DAILY 08/31/18 08/31/18 History Pantoprazole Sodium [Protonix] 40 mg PO DAILY 08/31/18 08/31/18 History QUEtiapine [SEROquel] 25 mg PO HS 08/31/18 08/31/18 History Sennosides [Senna] 8.6 mg PO BID PRN 08/31/18 08/31/18 History Hydrocortisone [Cortef] 5 mg PO TID #60 tablet 09/07/18 Rx Metoprolol Tartrate [Lopressor] 12.5 mg PO BID #60 tab 09/07/18 Rx Morphine Sulfate [Ms Contin] 100 mg PO Q12H #6 tablet.er 09/07/18 Rx Torsemide [Demadex] 20 mg PO DAILY #30 tablet 09/07/18 Rx Allergies Allergy/AdvReac Type Severity Reaction Status Date / Time ibuprofen Allergy Unknown Verified 08/31/18 13:56 trazodone Allergy Chest Pain Verified 08/31/18 13:56 Surgical - Exam Vital Signs Temp Pulse Resp BP Pulse Ox 97.6 F 65 18 111/54 90 L 08/31/18 13:31 08/31/18 13:31 08/31/18 13:31 08/31/18 13:31 08/31/18 13:31 - General well developed, no distress, chronically ill - ENT no hearing loss - Neck no masses, no lymphadectomy - Respiratory normal respiratory effort - Abdomen Abdomen: soft, non tender - Genitourinary normal external genitalia, other (Joyce catheter is in place and is draining cloudy urine) Results - Labs 09/06/18 07:22 09/07/18 06:50 Abnormal Lab Results - Last 24 Hours (Table) 09/07/18 09/07/18 09/08/18 Range/Units 16:18 20:53 00:14 POC Glucose (mg/dL) 174 H 108 H 107 H (75-99) mg/dL Urine Appearance (Clear) Urine Protein (Negative) Urine Blood (Negative) Ur Leukocyte Esterase (Negative) Urine RBC (0-5) /hpf Urine WBC (0-5) /hpf Urine WBC Clumps (None) /hpf Urine Bacteria (None) /hpf 09/08/18 09/08/18 09/08/18 Range/Units 03:45 11:20 12:07 POC Glucose (mg/dL) 104 H 128 H (75-99) mg/dL Urine Appearance Turbid H (Clear) Urine Protein 1+ H (Negative) Urine Blood Moderate H (Negative) Ur Leukocyte Esterase Large H (Negative) Urine RBC 48 H (0-5) /hpf Urine WBC >182 H (0-5) /hpf Urine WBC Clumps Many H (None) /hpf Urine Bacteria Occasional H (None) /hpf Microbiology - Last 24 Hours (Table) 09/08/18 11:20 Urine Culture - Preliminary Urine,Catheterized Assessment and Plan (1) Urinary retention Narrative/Plan: The source of the patient's urinary retention is not clear. When her catheter was inserted on 09/01 she had 270 mL in her bladder and it's unclear whether this was a true post void residual. I reviewed a computed tomography scan of the abdomen and pelvis performed in 07/2018. At that time the patient had a moderate amount of urine her bladder. I am concerned that the patient had 652 mL in her bladder today and yet denied any sensations of bladder fullness prior to placement of the catheter. It is possible the patient has had incomplete bladder emptying that has been chronic and that this has worsened recently while she has been hospitalized. She has not had a bowel movement in 3 or 4 days and it is possible that this has worsened her ability to empty her bladder. The patient is ready to be discharged and she should be discharged with a catheter in place and she cannot perform self catheterization. I would suggest the catheter be left in place for an additional week prior to another voiding trial. During that period of time the patient's bowels will hopefully return to normal. If the patient will be seen by a visiting nurse the nurse can contact me to arrange for the voiding trial. Current Visit: Yes Status: Acute Code(s): R33.9 - RETENTION OF URINE, UNSPECIFIED SNOMED Code(s): 967730954
--- NOTE | 2018-09-08 17:38 | P.PN ---
Subjective Progress Note Date: 09/08/18 Patient was seen and evaluated today. Plan was for her to be discharged to ECF yesterday. Patient declined ECF last minutes and decided that she wants to go home. At the time she had a Joyce catheter and plan was for voiding trial as ECF. I informed the patient that she cannot go home with a Joyce catheter in as she does not have follow-up with urology. She had a voiding trial last night and she had 300 mL of urine retention. I asked the nurse to do another bladder scan postvoid residual this morning was 600 mL. A Joyce catheter was inserted and a cloudy/purulent material came out in the catheter. There is no documented fever. Patient herself is feeling well. She is asking to be discharged home. Objective - Vital Signs Vital signs: Vital Signs Temp 98.2 F 09/08/18 12:00 Pulse 104 H 09/08/18 15:16 Resp 16 09/08/18 15:16 BP 119/74 09/08/18 12:00 Pulse Ox 91 L 09/08/18 12:00 Intake & Output 09/07/18 09/08/18 09/08/18 18:59 06:59 18:59 Intake Total 250 450 Output Total 159 418 4042 Balance -475 -056 -1505 Weight 41 kg 41 kg Intake: Intake, IV Titration 100 Amount cefTRIAXone 1,000 mg In 100 Sodium Chloride 0.9% 50 ml @ 100 mls/hr IVPB Q24HR [facility] Rx#:[id number] Oral 250 350 Output: Urine 034 119 9415 Post Void Residual 652 Other: Voiding Method Indwelling Catheter Bedpan Indwelling Catheter # Voids 1 1 # Bowel Movements 0 - Exam General: The patient is awake and alert, in no distress Eye: there is normal conjunctiva bilaterally. Neck: The neck is supple, there is no JVD. Cardiovascular: Normal S1-S2, no S3-S4, no murmurs. Respiratory: Lungs clear to auscultation bilaterally Gastrointestinal: Abdomen is soft, nontender Musculoskeletal: There is bilateral amputation Neurological:. Speech is normal. Skin: Skin is warm and dry - Labs CBC & Chem 7: 09/06/18 07:22 09/07/18 06:50 Labs: Abnormal Lab Results - Last 24 Hours (Table) 09/07/18 09/08/18 09/08/18 Range/Units 20:53 00:14 03:45 POC Glucose (mg/dL) 108 H 107 H 104 H (75-99) mg/dL Urine Appearance (Clear) Urine Protein (Negative) Urine Blood (Negative) Ur Leukocyte Esterase (Negative) Urine RBC (0-5) /hpf Urine WBC (0-5) /hpf Urine WBC Clumps (None) /hpf Urine Bacteria (None) /hpf 09/08/18 09/08/18 09/08/18 Range/Units 11:20 12:07 16:06 POC Glucose (mg/dL) 128 H 107 H (75-99) mg/dL Urine Appearance Turbid H (Clear) Urine Protein 1+ H (Negative) Urine Blood Moderate H (Negative) Ur Leukocyte Esterase Large H (Negative) Urine RBC 48 H (0-5) /hpf Urine WBC >182 H (0-5) /hpf Urine WBC Clumps Many H (None) /hpf Urine Bacteria Occasional H (None) /hpf Microbiology - Last 24 Hours (Table) 09/08/18 11:20 Urine Culture - Preliminary Urine,Catheterized Assessment and Plan Assessment: 1. Suspected adrenal insufficiency, started on Cortef 3 times a day. Plan to follow-up with endocrinology in the office in one week 2. Acute on chronic systolic heart failure now with exacerbation. Improved with diuresis. Regimen adjusted to Demadex 3. Acute kidney injury due to ATN and possible cardiorenal syndrome, creatinine improved. Avoid nephrotoxins. Follow up with nephrology as directed 4. 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 Currently on dual antiplatelet therapy and daily subcu Lovenox. Follow-up with hematology [place] [facility] [place] 5. Peripheral arterial disease and coronary artery disease, continue medical therapy 6. History of bilateral lower extremity amputation 7. Stage II sacral pressure ulcer with no evidence of infection. Seen by Dr. Beal during this admission. Optifoam dressing. 8. Obstructive uropathy, patient failed voiding trial with 600 mL urine retention. Joyce catheter reinserted. Urology consulted, appreciate recommendations. Oxybutynin was discontinued as it may be contributing to her problem. Today, I reviewed her medication list and lab work results. Patient is refusing to go to [facility]. She might be able to go home tomorrow with the Joyce catheter in awaiting having a follow-up appointment with urology.
[2018-09-08 20:07] LABS: Glucose,Whole Blood 121 mg/dL (75-99)
[2018-09-08] MEDS: QUEtiapine 25 MG TAB PO SCH (21:55)
[2018-09-08 23:42] LABS: Glucose,Whole Blood 127 mg/dL (75-99)
[2018-09-09 03:48] LABS: Glucose,Whole Blood 72 mg/dL (75-99)
[2018-09-09 06:30] LABS: Glucose,Whole Blood 100 mg/dL (75-99)
[2018-09-09 08:35] LABS: Anisocytosis Slight; Basophils % (A) 0 %; Eosinophils # (A) 0.1 k/uL (0-0.7); Eosinophils % (A) 2 %; HCT 27.7 % (34.0-46.0); HGB 8.7 gm/dL (11.4-16.0); Hypochromasia Slight; Lymphocytes # (A) 0.8 k/uL (1.0-4.8); Lymphocytes % (A) 17 %; MCH 29.2 pg (25.0-35.0); MCHC 31.6 g/dL (31.0-37.0); MCV 92.3 fL (80.0-100.0); Mean Platelet Volume 7.4; Monocytes # (A) 0.3 k/uL (0-1.0); Monocytes % (A) 7 %; Neutrophils # (A) 3.5 k/uL (1.3-7.7); Neutrophils % (A) 74 %; Platelet Count 283 k/uL (150-450); RDW 17.6 % (11.5-15.5); WBC 4.8 k/uL (3.8-10.6)
[2018-09-09 08:46] LABS: Glucose,Whole Blood 75 mg/dL (75-99)
[2018-09-09 08:46] LABS: Calcium 7.7 mg/dL (8.4-10.2); Potassium 3.9 mmol/L (3.5-5.1)
[2018-09-09] MEDS: ATORVASTATIN 40 MG TAB PO SCH (08:49)
[2018-09-09] MEDS: ENOXAPARIN 40 MG/0.4 ML SYRINGE SQ SCH (08:50)
[2018-09-09] MEDS: HYDROCORTISONE 10 MG TAB PO SCH ×3 (08:51→20:20)
[2018-09-09] MEDS: ISOSORBIDE MONONITRATE ER 30 MG TAB.ER.24H PO SCH (08:53)
[2018-09-09] MEDS: METOPROLOL TARTRATE 12.5 MG TAB PO SCH ×2 (08:54→20:19)
[2018-09-09] MEDS: MEGESTROL 400 MG/10 ML CUP PO SCH (08:54)
[2018-09-09] MEDS: MORPHINE SULFATE ER 100 MG TABLET PO SCH ×2 (08:56→20:19)
[2018-09-09] MEDS: PANTOPRAZOLE 40 MG TABLET PO SCH (08:58)
[2018-09-09] MEDS: TORSEMIDE 20 MG TAB PO SCH (08:59)
[2018-09-09] MEDS: CLOPIDOGREL 75 MG TAB PO SCH (08:59)
[2018-09-09] MEDS: ASPIRIN 81 MG PO SCH (08:59)
[2018-09-09 11:03] VITALS: BMI 15.0
[2018-09-09 11:49] LABS: Glucose,Whole Blood 133 mg/dL (75-99)
--- NOTE | 2018-09-09 12:18 | P.PN ---
Subjective Patient is seen in follow-up for acute kidney injury. Baseline creatinine is 1. It was elevated at 2.38 on admission and 1.48 today. Patient presented with dyspnea. She is noted to have systolic CHF with ejection fraction of less than 20%. She received IV diuretics and is now maintained on Demadex 20 mg once daily. She is nonoliguric. Urinalysis is benign. Dyspnea improved. No active complaints at this time. She is eager to be discharged. Vital signs are stable. General: The patient appeared well nourished and normally developed. HEENT: Head exam is unremarkable. Neck is without jugular venous distension. LUNGS: Lungs are clear to auscultation and percussion. Breath sounds decreased. HEART: Rate and Rhythm are regular. First and second heart sounds normal. No murmurs, rubs or gallops. ABDOMEN: Abdominal exam reveals normal bowel sounds. Non-tender and non- distended. No evidence of peritonitis. EXTREMITITES: Bilateral lower extremity amputations noted. Objective - Vital Signs Vital signs: Vital Signs Temp 97.6 F 09/09/18 05:34 Pulse 99 09/09/18 05:34 Resp 16 09/09/18 05:34 BP 127/82 09/09/18 05:34 Pulse Ox 97 09/09/18 05:34 Intake & Output 09/08/18 09/09/18 09/09/18 18:59 06:59 18:59 Intake Total 450 Output Total 1952 200 Balance -1502 -200 Weight 41 kg 41 kg Intake: Intake, IV Titration 100 Amount cefTRIAXone 1,000 mg In 100 Sodium Chloride 0.9% 50 ml @ 100 mls/hr IVPB Q24HR [facility] Rx#:[id number] Oral 350 Output: Urine 1300 200 Post Void Residual 652 Other: Voiding Method Indwelling Catheter Indwelling Catheter # Voids 1 0 # Bowel Movements 0 - Labs CBC & Chem 7: 09/09/18 07:43 09/09/18 07:43 Labs: Abnormal Lab Results - Last 24 Hours (Table) 09/08/18 09/08/18 09/08/18 Range/Units 16:06 20:05 23:40 RBC (3.80-5.40) m/uL Hgb (11.4-16.0) gm/dL Hct (34.0-46.0) % RDW (11.5-15.5) % Lymphocytes # (1.0-4.8) k/uL Carbon Dioxide (22-30) mmol/L BUN (7-17) mg/dL Creatinine (0.52-1.04) mg/dL Glucose (74-99) mg/dL POC Glucose (mg/dL) 107 H 121 H 127 H (75-99) mg/dL Calcium (8.4-10.2) mg/dL 09/09/18 09/09/18 09/09/18 Range/Units 03:46 06:21 07:43 RBC 3.00 L (3.80-5.40) m/uL Hgb 8.7 L (11.4-16.0) gm/dL Hct 27.7 L (34.0-46.0) % RDW 17.6 H (11.5-15.5) % Lymphocytes # 0.8 L (1.0-4.8) k/uL Carbon Dioxide (22-30) mmol/L BUN (7-17) mg/dL Creatinine (0.52-1.04) mg/dL Glucose (74-99) mg/dL POC Glucose (mg/dL) 72 L 100 H (75-99) mg/dL Calcium (8.4-10.2) mg/dL 09/09/18 09/09/18 Range/Units 07:43 11:48 RBC (3.80-5.40) m/uL Hgb (11.4-16.0) gm/dL Hct (34.0-46.0) % RDW (11.5-15.5) % Lymphocytes # (1.0-4.8) k/uL Carbon Dioxide 32 H (22-30) mmol/L BUN 54 H (7-17) mg/dL Creatinine 1.48 H (0.52-1.04) mg/dL Glucose 67 L (74-99) mg/dL POC Glucose (mg/dL) 133 H (75-99) mg/dL Calcium 7.7 L (8.4-10.2) mg/dL Microbiology - Last 24 Hours (Table) 09/08/18 11:20 Urine Culture - Preliminary Urine,Catheterized Assessment and Plan Plan: Assessment: 1. Acute kidney injury secondary to ATN secondary to cardiorenal syndrome. Creatinine down to 1.4 today. Urinalysis is benign. No evidence of hydronephrosis noted on renal ultrasound. 2. Volume overload. Improved with diuresis. 3. Metabolic acidosis secondary to acute kidney injury. Resolved. 4. Systolic CHF with ejection fraction of less than 20%. 5. 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 7. Hypomagnesemia secondary to diuresis. Improved post replacement. 8. Hypokalemia secondary to diuresis. Improved post replacement. Plan: Maintain Demadex 20 mg orally once daily. Avoid nephrotoxins. Discontinued oral sodium bicarbonate. Repeat electrolytes the morning. Anticipate discharge soon. Repeat BMP in 3-4 days and follow up outpatient in the next 1-2 weeks. Awaits placement to rehab.
--- NOTE | 2018-09-09 15:52 | P.PN ---
Subjective Progress Note Date: 09/09/18 (Delayed charting patient seen at 10am) Principal diagnosis: Shortness of breath Patient is a 48-year-old -[place] female with a history of sticky platelet syndrome, multiple DVTs, pulmonary embolism, and peripheral arterial disease who presented in with right-sided chest pain and shortness of breath. In the ER she underwent an extensive evaluation. On arrival her vital signs showed a slight hypoxemia with an O2 sat of 90% on room air. Laboratory analysis showed a hyperchloremic metabolic acidosis as well as an elevated creatinine at 2.38. She had slightly elevated liver enzymes. A BNP was 127, 000. Initial troponin was negative. EKG did not show any signs of acute ischemia. She was given a dose of morphine, Lasix, and DuoNeb. Arrangements were made for admission. She was found to have pulmonary edema and her Lasix was continued. Cardiology was consulted and echocardiogram was ordered. Her EF was found to be low at less than 20%. Cardio transitioned her to metoprolol. Her BP was low the morning of 09/02 and he hydralazine was stopped. Her BP was again low on the morning of 09/03 and her metoprolol was held. Here blood sugar was low again on the morning of 09/04 without any insulin administration. She was started on D 10 gtt which was decreased on 09/05. She appears to have possible adrenal insufficiency and she was started on cortef with plans for ACTH stim test (low glucose, hyperkalemia, low BP). She had been progressing well. Renteria was discontinued and she was found to have acute urinary retention. When urinalysis was checked and demonstrated probable urinary tract infection. She was started on Rocephin. Her Renteria catheter was replaced and urology was consulted. They recommended maintaining Renteria for another 7 days and voiding trial with home health. Patient seen and examined at bedside. Upset and Will not answer my questions on initial examination. Only groans to everything and then refuses to have blood glucose monitor Patient received in the afternoon with her mother present she is awake and alert and conversive. We discussed discharge plans need for follow-up and further monitoring. Objective - Vital Signs Vital signs: Vital Signs Temp 98.4 F 09/09/18 12:26 Pulse 114 H 09/09/18 12:26 Resp 14 09/09/18 12:26 BP 132/94 09/09/18 12:26 Pulse Ox 95 09/09/18 12:26 Intake & Output 09/08/18 09/09/18 09/09/18 18:59 06:59 18:59 Intake Total 450 Output Total 195 200 450 Balance -1502 -200 -450 Weight 41 kg 41 kg Intake: Intake, IV Titration 100 Amount cefTRIAXone 1,000 mg In 100 Sodium Chloride 0.9% 50 ml @ 100 mls/hr IVPB Q24HR [facility] Rx#:[id number] Oral 350 Output: Urine 1300 200 450 Post Void Residual 652 Other: Voiding Method Indwelling Catheter Indwelling Catheter # Voids 1 0 # Bowel Movements 0 - Exam General: Non toxic, no distress, appears at stated age, cachectic Derm: warm, dry Head: atraumatic, normocephalic, symmetric Eyes: EOMI, no lid lag, anicteric sclera Mouth: no lip lesion, mucus membranes moist Cardiovascular: S1S2 reg, no murmur, no JVD Lungs: CTA bilateral, no rhonchi, no rales , no accessory muscle use Abdominal: soft, nontender to palpation, no guarding, no appreciable organomegaly Ext: gross muscle atrophy of hip flexors, no edema, , no contractures, LLE AKA and RLE BKA Neuro: CN II-XI grossly intact, no focal neuro deficits Psych: Awake, refusing to converse - Labs CBC & Chem 7: 09/09/18 07:43 09/09/18 07:43 Labs: Abnormal Lab Results - Last 24 Hours (Table) 09/08/18 09/08/18 09/08/18 Range/Units 16:06 20:05 23:40 RBC (3.80-5.40) m/uL Hgb (11.4-16.0) gm/dL Hct (34.0-46.0) % RDW (11.5-15.5) % Lymphocytes # (1.0-4.8) k/uL Carbon Dioxide (22-30) mmol/L BUN (7-17) mg/dL Creatinine (0.52-1.04) mg/dL Glucose (74-99) mg/dL POC Glucose (mg/dL) 107 H 121 H 127 H (75-99) mg/dL Calcium (8.4-10.2) mg/dL 09/09/18 09/09/18 09/09/18 Range/Units 03:46 06:21 07:43 RBC 3.00 L (3.80-5.40) m/uL Hgb 8.7 L (11.4-16.0) gm/dL Hct 27.7 L (34.0-46.0) % RDW 17.6 H (11.5-15.5) % Lymphocytes # 0.8 L (1.0-4.8) k/uL Carbon Dioxide (22-30) mmol/L BUN (7-17) mg/dL Creatinine (0.52-1.04) mg/dL Glucose (74-99) mg/dL POC Glucose (mg/dL) 72 L 100 H (75-99) mg/dL Calcium (8.4-10.2) mg/dL 09/09/18 09/09/18 Range/Units 07:43 11:48 RBC (3.80-5.40) m/uL Hgb (11.4-16.0) gm/dL Hct (34.0-46.0) % RDW (11.5-15.5) % Lymphocytes # (1.0-4.8) k/uL Carbon Dioxide 32 H (22-30) mmol/L BUN 54 H (7-17) mg/dL Creatinine 1.48 H (0.52-1.04) mg/dL Glucose 67 L (74-99) mg/dL POC Glucose (mg/dL) 133 H (75-99) mg/dL Calcium 7.7 L (8.4-10.2) mg/dL Microbiology - Last 24 Hours (Table) 09/08/18 11:20 Urine Culture - Preliminary Urine,Catheterized Gram Neg Bacilli Assessment and Plan Assessment: Hypoglycemia with probable adrenal insufficiency - cortef 5mg TID. Appears effective with overall higher BS and BP -Accu-Cheks qac and HS - outpatient endocrine evaluation with Dr. Thompson possible UTI - joey, await culture Acute urinary retention - seen by urology - maintain renteria X 7 days and then voiding trial - off ditropa Acute systolic CHF with EF <20% - Continue with demadex - on metoprolol 12.5, no ACEI due to MOE and increased Cr, on imdur - Ferritin above normal - TSH normal - Plan is for follow-up with Dr. Gary in 1-2 weeks for ischemic evaluation Acute kidney injury due to ATN, likely component of cardiorenal syndrome. (CKD ruled out) - improving - nephrorecs appreciated - follow BMP closely with diuresis, repeat as outpatient in 3-4 days Sticky platelet syndrome, with recent renal infract - continue lovenox.. now 40 mg once dialy - follow with heme/onc out of [facility] Severe protein calorie malnutrition - continue megace... Needs to d/w heme onc as outpatient as it increases risk of thromboembolism - dietitian recs: considering tube feedings will delay until cardiac eval complete PAD, CAD - ASA, Plavix, imdur Mild transaminitis - chronic in nature - continued outpatient evaluation Anemia of chronic disease - follow-up as outpatient, appears better than baseline Stage II Sacral pressure ulcer, POA - off loading - Dr. Emigdio garcia appreciated,optifoam dressing Hyperkalemia, resolved DVT prophylaxis: Lovenox Discussed with: Patient and mother, nursing Anticipated discharge: [address]: home with home health A total of 35 minutes was spent on the care of this complex patient more than 50 % of the time was spent in counseling and care coordination.
[2018-09-09 16:26] LABS: Glucose,Whole Blood 133 mg/dL (75-99)
[2018-09-09 20:19] LABS: Glucose,Whole Blood 176 mg/dL (75-99)
[2018-09-09] MEDS: QUEtiapine 25 MG TAB PO SCH (20:20)
[2018-09-09 22:08] VITALS: RESP 16
[2018-09-10 00:23] LABS: Glucose,Whole Blood 105 mg/dL (75-99)
[2018-09-10 04:43] LABS: Glucose,Whole Blood 86 mg/dL (75-99)
[2018-09-10 05:56] VITALS: TEMP 97.8
[2018-09-10] MEDS: ATORVASTATIN 40 MG TAB PO SCH (07:32)
[2018-09-10] MEDS: ENOXAPARIN 40 MG/0.4 ML SYRINGE SQ SCH (07:33)
[2018-09-10] MEDS: METOPROLOL TARTRATE 12.5 MG TAB PO SCH (07:34)
[2018-09-10] MEDS: ISOSORBIDE MONONITRATE ER 30 MG TAB.ER.24H PO SCH (07:34)
[2018-09-10] MEDS: MEGESTROL 400 MG/10 ML CUP PO SCH (07:34)
[2018-09-10] MEDS: MORPHINE SULFATE ER 100 MG TABLET PO SCH (07:35)
[2018-09-10] MEDS: PANTOPRAZOLE 40 MG TABLET PO SCH (07:35)
[2018-09-10] MEDS: TORSEMIDE 20 MG TAB PO SCH (07:36)
[2018-09-10] MEDS: CLOPIDOGREL 75 MG TAB PO SCH (07:36)
[2018-09-10] MEDS: HYDROCORTISONE 10 MG TAB PO SCH (07:36)
[2018-09-10] MEDS: ASPIRIN 81 MG PO SCH (07:36)
[2018-09-10 07:48] LABS: Anisocytosis Slight; Basophils % (A) 0 %; Eosinophils # (A) 0.1 k/uL (0-0.7); Eosinophils % (A) 2 %; HCT 27.4 % (34.0-46.0); HGB 8.8 gm/dL (11.4-16.0); Hypochromasia Slight; Lymphocytes # (A) 0.9 k/uL (1.0-4.8); Lymphocytes % (A) 17 %; MCH 29.6 pg (25.0-35.0); MCV 92.5 fL (80.0-100.0); Mean Platelet Volume 7.4; Monocytes # (A) 0.3 k/uL (0-1.0); Monocytes % (A) 6 %; Neutrophils # (A) 3.7 k/uL (1.3-7.7); Neutrophils % (A) 73 %; Platelet Count 269 k/uL (150-450); RBC 2.97 m/uL (3.80-5.40); RDW 17.3 % (11.5-15.5)
[2018-09-10 07:50] LABS: Glucose,Whole Blood 51 mg/dL (75-99)
[2018-09-10 08:02] LABS: Calcium 7.6 mg/dL (8.4-10.2); Potassium 3.7 mmol/L (3.5-5.1)
[2018-09-10 08:13] LABS: Glucose,Whole Blood 85 mg/dL (75-99)
[2018-09-10 09:08] VITALS: BP 119/78; PULSE 90
--- NOTE | 2018-09-10 11:25 | P.DS ---
Providers Date of admission: 08/31/18 16:44 Expected date of discharge: 09/10/18 Attending physician: Sage George MD Consults: 08/31/18 16:43 Consult Physician Routine Consulting Provider: Davis Curiel Consult Reason/Comments: chf Do you want consulting provider notified?: Yes Consult Physician Routine Consulting Provider: Dorothea Calvin Consult Reason/Comments: arf Do you want consulting provider notified?: Yes 09/01/18 09:28 Consult Physician Routine Consulting Provider: Víctor Beal Consult Reason/Comments: evaluation of pressure ulcer on coccyx Do you want consulting provider notified?: Yes 09/08/18 12:27 Consult Physician Routine Consulting Provider: Lars Frank Consult Reason/Comments: Obstructive uropathy Do you want consulting provider notified?: Yes Primary care physician: Garcia Resendez MD Hospital Course: Discharge Diagnosis: Hypoglycemia ESBL E. COLI UTI, Cath associated Urinary retention Acute systolic CHT EF <20% MOE due to ATN, cardiorenal syndrome Stickey platelet syndrome Severe protein calorie malnutrition CAD PAD Mild transaminitis Anemia of chronic disease Stage II sacral pressure ulcer, POA Hyperkalemia and hypokalemia Hospital Course: Patient is a 48-year-old -[place] female with a history of sticky platelet syndrome, multiple DVTs, pulmonary embolism, and peripheral arterial disease who presented with right-sided chest pain and shortness of breath. In the ER she underwent an extensive evaluation. On arrival her vital signs showed a slight hypoxemia with an O2 sat of 90% on room air. Laboratory analysis showed a hyperchloremic metabolic acidosis as well as an elevated creatinine at 2.38. She had slightly elevated liver enzymes. A BNP was 127, 000. Initial troponin was negative. EKG did not show any signs of acute ischemia. She was given a dose of morphine, Lasix, and DuoNeb. Arrangements were made for admission. She was found to have pulmonary edema and her Lasix was continued. Cardiology was consulted and echocardiogram was ordered. Her EF was found to be low at less than 20%. Cardio transitioned her to metoprolol. Her BP was low the morning of 09/02 and he hydralazine was stopped. Her BP was again low on the morning of 09/03 and her metoprolol was held. Her blood sugar were low on the morning of 09/04, had been slightly low on 09/03 without any insulin administration. She was started on D 10 gtt which was decreased on and stopped 09/06. She appears to have possible adrenal insufficiency and she was started on cortef with plans for ACTH stim test as outpatient (low glucose, hyperkalemia, low BP). She had been progressing well. Renteria was discontinued and she was found to have acute urinary retention. When urinalysis was checked and demonstrated probable urinary tract infection. She was started on Rocephin. Her Renteria catheter was replaced and urology was consulted. They recommended maintaining Renteria for another 7 days and voiding trial with home health. Her Urine came back with ESBL E. Coli which was sensitive to bactrim. She was started on bactrim BID. She was determined stable to discharge home. She will complete 10 days of bactrim therapy. She will go home with her renteria, home health, and the [facility] program. She will continue on cortef and follow-up with endorinology for formal testing. She will follow with Dr. Gary for ischemic eval on 09/27. She will also follow with Dr. Beal at the wound care center. She will have a BMP on 09/13 to assess renal fct on bactrim. She will see Dr. Handley in 1 week. An extensive amount of time was spent on education with patient about heart failure, chronic kidney disease, and fluid restriction. Patient seen and examined at bedside. No chest pain, SOB, nausea, vomiting, diarrhea. Vital signs reviewed and stable. General: non toxic, no distress, appears older than stated age Derm: warm, dry Head: atraumatic, normocephalic, symmetric Eyes: EOMI, no lid lag, anicteric sclera Mouth: no lip lesion, mucus membranes moist Cardiovascular: S1S2 reg, no murmur, No JVD Lungs: decrease bs bilateral, no rhonchi, no rales , no accessory muscle use Abdominal: soft, nontender to palpation, no guarding, no appreciable organomegaly Ext: no gross muscle atrophy, no edema, no contractures Neuro: CN II-XI grossly intact, no focal neuro deficits Psych: Alert, oriented, appropriate affect A total of 45 minutes of time were spent preparing this complex discharge summary . Pertinent Studies: renal and bladder US- Heterogenous cortical echotexture could be related to renal infarct. Echo- EF<20%, LA severly dilated, Severe Global hypokinesis Procedures: Midline IV access 09/01/2018 Patient Condition at Discharge: Fair Plan - Discharge Summary Discharge Rx Participant: Yes New Discharge Prescriptions: New Metoprolol Tartrate [Lopressor] 12.5 mg PO BID #60 tab Hydrocortisone [Cortef] 5 mg PO TID #60 tablet Torsemide [Demadex] 20 mg PO DAILY #30 tablet Sulfamethox-Tmp 800-160Mg [Bactrim DS 800-160 mg] 1 tab PO Q12HR #20 tab Continue Polyethylene Glycol 3350 [Miralax] 17 gm PO DAILY PRN PRN Reason: Constipation Clopidogrel [Plavix] 75 mg PO DAILY tab Cyclobenzaprine [Flexeril] 10 mg PO TID PRN tab PRN Reason: Muscle Spasm Mirtazapine [Remeron] 30 mg PO HS PRN tab PRN Reason: Insomnia QUEtiapine [SEROquel] 25 mg PO HS Isosorbide Mononitrate ER [Imdur] 30 mg PO DAILY Aspirin EC [Ecotrin Low Dose] 81 mg PO DAILY Sennosides [Senna] 8.6 mg PO BID PRN PRN Reason: Constipation Docusate [Colace] 100 mg PO BID PRN PRN Reason: Constipation Megestrol [Megace] 400 mg PO DAILY Pantoprazole Sodium [Protonix] 40 mg PO DAILY Atorvastatin [Lipitor] 40 mg PO DAILY Enoxaparin [Lovenox] 40 mg SQ Q12H Morphine Sulfate [Ms Contin] 100 mg PO Q12H #6 tablet.er Discontinued HYDROmorphone HCL [Dilaudid] 8 mg PO Q8HR PRN PRN Reason: Pain Oxybutynin Chloride [Ditropan] 5 mg PO TID tab Furosemide [Lasix] 10 mg PO DAILY hydrALAZINE HCL 10 mg PO TID Diltiazem Oral [Cardizem Oral] 30 mg PO QID Discharge Medication List Polyethylene Glycol 3350 [Miralax] 17 gm PO DAILY PRN 08/01/18 [History] Clopidogrel [Plavix] 75 mg PO DAILY tab 08/03/18 [Rx] Cyclobenzaprine [Flexeril] 10 mg PO TID PRN tab 08/03/18 [Rx] Mirtazapine [Remeron] 30 mg PO HS PRN tab 08/03/18 [Rx] Aspirin EC [Ecotrin Low Dose] 81 mg PO DAILY 08/31/18 [History] Atorvastatin [Lipitor] 40 mg PO DAILY 08/31/18 [History] Docusate [Colace] 100 mg PO BID PRN 08/31/18 [History] Enoxaparin [Lovenox] 40 mg SQ Q12H 08/31/18 [History] Isosorbide Mononitrate ER [Imdur] 30 mg PO DAILY 08/31/18 [History] Megestrol [Megace] 400 mg PO DAILY 08/31/18 [History] Pantoprazole Sodium [Protonix] 40 mg PO DAILY 08/31/18 [History] QUEtiapine [SEROquel] 25 mg PO HS 08/31/18 [History] Sennosides [Senna] 8.6 mg PO BID PRN 08/31/18 [History] Hydrocortisone [Cortef] 5 mg PO TID #60 tablet 09/07/18 [Rx] Metoprolol Tartrate [Lopressor] 12.5 mg PO BID #60 tab 09/07/18 [Rx] Morphine Sulfate [Ms Contin] 100 mg PO Q12H #6 tablet.er 09/07/18 [Rx] Torsemide [Demadex] 20 mg PO DAILY #30 tablet 09/07/18 [Rx] Sulfamethox-Tmp 800-160Mg [Bactrim DS 800-160 mg] 1 tab PO Q12HR #20 tab [Rx] Follow up Appointment(s)/Referral(s): Jalen Gary MD [STAFF PHYSICIAN] - 09/27/18 2:15 pm (THURSDAY) [facility], [NON-STAFF] - Lars Frank MD [STAFF PHYSICIAN] - 2 Weeks (The office will contact you with an appointment after they go through your chart.) Garcia Resendez MD [Primary Care Provider] - 09/09/18 11:45 am [facility] [[facility] - 2 Weeks Xuan Thompson MD [STAFF PHYSICIAN] - 1 Week Christopher Handley DO [STAFF PHYSICIAN] - 1 Week Ambulatory/Diagnostic Orders: Basic Metabolic Panel [LAB.AMB] Time Frame: 3 Days, Location: None Selected Complete Blood Count w/diff [LAB.AMB] Location: None Selected Urinalysis [LAB.AMB] Time Frame: 1 Week, Location: None Selected Patient Instructions/Handouts: Heart Failure (DC), Urinary Tract Infection in Women (DC), Chronic Kidney Disease (DC), Renteria Catheter Placement and Care (DC) , Fluid Restriction (DC) Activity/Diet/Wound Care/Special Instructions: foam dressing to coccyx low sodium diet, 2L fluid restriction, activity as tolerated Maintain renteria for 7 days, home care to contact Dr. Frank for voiding trail at 5 days BMP in 3-4 days DX: MOE Repeat UA after renteria cath removed. Discharge Disposition: HOME WITH HOME HEALTH SERVICES
--- NOTE | 2018-09-10 21:58 | PN ---
PROGRESS NOTE HISTORY: The patient is seen for followup for acute kidney injury. Her renal function has improved with creatinine now staying at about 1.4 mg/dL from 2.38 on initial admission. Previous creatinine in December was as low as 0.45 mg/dL. The patient has been voiding. She was found to have a urinary tract infection with E coli at this admission. Currently, she is off of IV fluids and maintaining oral intake. She is also back on her oral diuretic dose of Demadex. EXAMINATION: This morning, blood pressure was 119/78, heart rate 90 per minute. Patient is afebrile. Examination of the heart shows S1, S2. No murmur, rub, or gallop is heard. 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 LAB: Sodium 137, potassium 3.7, BUN 47, serum creatinine 1.47, calcium 7.6, hemoglobin 8.8 g/dL. ASSESSMENT: 1. Acute kidney injury, currently improved. Etiology underlying acute tubular necrosis (ATN). 2. Systolic heart failure with ejection fraction less than 20%, currently compensated. Continue with current dose of oral torsemide. 3. History of right renal infarct. 4. 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 5. Hypokalemia and hypomagnesemia, maintained on supplementation. 6. Urinary tract infection with Escherichia coli. PLAN: 1. Continue with current dose of Demadex. 2. Follow up as outpatient. MMODL / IJN: [id number] /
== END 2018-09-10 12:41 | disposition home health service (06) | DRG 291 ==
LOC: EC 13:06 → 3SCARD 16:44 → 3NMEDONC 09-07 22:30
PROVIDERS: ADMIT Family Medicine; ATTEND Family Medicine
DX: I13.0 Hypertensive heart and chronic kidney disease with heart failure and stage 1 through stage 4 chronic kidney disease, or unspecified chronic kidney disease (principal); E43 Unspecified severe protein-calorie malnutrition; I50.23 Acute on chronic systolic (congestive) heart failure; J96.01 Acute respiratory failure with hypoxia; N17.0 Acute kidney failure with tubular necrosis; N39.0 Urinary tract infection, site not specified; T83.511A Infection and inflammatory reaction due to indwelling urethral catheter, initial encounter; E27.40 Unspecified adrenocortical insufficiency; E87.2 Acidosis; N28.0 Ischemia and infarction of kidney; B96.20 Unspecified Escherichia coli [E. coli] as the cause of diseases classified elsewhere; D63.1 Anemia in chronic kidney disease; E16.2 Hypoglycemia, unspecified; E83.42 Hypomagnesemia; E87.5 Hyperkalemia; E87.6 Hypokalemia; G89.29 Other chronic pain; I25.10 Atherosclerotic heart disease of native coronary artery without angina pectoris; I73.9 Peripheral vascular disease, unspecified; J45.909 Unspecified asthma, uncomplicated; L89.152 Pressure ulcer of sacral region, stage 2; L89.329 Pressure ulcer of left buttock, unspecified stage; N13.9 Obstructive and reflux uropathy, unspecified; N18.9 Chronic kidney disease, unspecified; T50.2X5A Adverse effect of carbonic-anhydrase inhibitors, benzothiadiazides and other diuretics, initial encounter; Z16.12 Extended spectrum beta lactamase (ESBL) resistance; Z79.02 Long term (current) use of antithrombotics/antiplatelets; Z82.1 Family history of blindness and visual loss; Z86.711 Personal history of pulmonary embolism; Z86.718 Personal history of other venous thrombosis and embolism; Z86.73 Personal history of transient ischemic attack (TIA), and cerebral infarction without residual deficits; Z87.891 Personal history of nicotine dependence; Z89.511 Acquired absence of right leg below knee; Z89.512 Acquired absence of left leg below knee; Z95.1 Presence of aortocoronary bypass graft; Y84.6 Urinary catheterization as the cause of abnormal reaction of the patient, or of later complication, without mention of misadventure at the time of the procedure; D69.1 Qualitative platelet defects; R74.0 Nonspecific elevation of levels of transaminase and lactic acid dehydrogenase [LDH]
CPT/HCPCS: 36415; 36569; 71046; 76770; 76937; 80048; 80053; 81001; 81003; 82024; 82533; 82550; 82553; 82728; 83036; 83525; 83540; 83550; 83735; 83880; 84443; 84484; 84681; 85025; 85027; 85610; 85730; 87077; 87086; 87186; 93005; 93306; 94640; 96374; 96375; 99291

== ENCOUNTER 2018-10-25 17:00 | Inpatient (IN) | payer MEDICARE, OTHER ==
[2018-10-25] MEDS ORDERED: SODIUM CHLORIDE 0.9% 1,000 ML IV STA (17:29)
[2018-10-25] MEDS ORDERED: SODIUM CHLORIDE 0.9% 500 ML 500 ML IV ONE (17:36)
--- NOTE | 2018-10-25 18:10 | ED ---
General Adult HPI - General Chief complaint: Fever Stated complaint: POSS UTI, FEVER AND PAIN Time Seen by Provider: 10/25/18 17:28 Source: patient, RN notes reviewed, old records reviewed Mode of arrival: wheelchair Limitations: no limitations - History of Present Illness Initial comments: 48-year-old female presenting with chief complaint of fever. Patient currently being treated for urinary tract infection. She has indwelling Joyce catheter. She has history of right enyvm-aqr-nhug amputation, left lkmkw-upx-ulpa of amputation. She is complaining of some mild vomiting and diarrhea. She has been out of her pain medication for the past 4 days because her pain management physician office closed. She is concerned that the antibiotic she is currently on which is Bactrim is not treating her urinary tract infection. Denies cough or dyspnea. Denies chest pain. She has some mild epigastric and right upper quadrant abdominal pain. - Related Data Home Medications Medication Instructions Recorded Confirmed Polyethylene Glycol 3350 [Miralax] 17 gm PO DAILY PRN 08/01/18 10/13/18 Aspirin EC [Ecotrin Low Dose] 81 mg PO DAILY 08/31/18 10/13/18 Atorvastatin [Lipitor] 40 mg PO DAILY 08/31/18 10/13/18 Docusate [Colace] 100 mg PO BID PRN 08/31/18 10/13/18 Enoxaparin [Lovenox] 40 mg SQ Q12H 08/31/18 10/13/18 Isosorbide Mononitrate ER [Imdur] 30 mg PO DAILY 08/31/18 10/13/18 Megestrol [Megace] 400 mg PO DAILY 08/31/18 10/13/18 Pantoprazole Sodium [Protonix] 40 mg PO DAILY 08/31/18 10/13/18 QUEtiapine [SEROquel] 25 mg PO HS 08/31/18 10/13/18 Sennosides [Senna] 8.6 mg PO BID PRN 08/31/18 10/13/18 Previous Rx's Medication Instructions Recorded Clopidogrel [Plavix] 75 mg PO DAILY tab 08/03/18 Cyclobenzaprine [Flexeril] 10 mg PO TID PRN tab 08/03/18 Mirtazapine [Remeron] 30 mg PO HS PRN tab 08/03/18 Hydrocortisone [Cortef] 5 mg PO TID #60 tablet 09/07/18 Metoprolol Tartrate [Lopressor] 12.5 mg PO BID #60 tab 09/07/18 Morphine Sulfate [Ms Contin] 100 mg PO Q12H #6 tablet.er 09/07/18 Torsemide [Demadex] 20 mg PO DAILY #30 tablet 09/07/18 Morphine Sulfate ER [Ms Contin] 100 mg PO Q12H #6 tablet 09/10/18 Allergies Allergy/AdvReac Type Severity Reaction Status Date / Time ibuprofen Allergy Unknown Verified 10/25/18 17:19 trazodone Allergy Chest Pain Verified 10/25/18 17:19 Review of Systems ROS Statement: Those systems with pertinent positive or pertinent negative responses have been documented in the HPI. ROS Other: All systems not noted in ROS Statement are negative. Past Medical History Past Medical History: Asthma, Heart Failure, CVA/TIA, Deep Vein Thrombosis (DVT) , Osteoarthritis (OA), Pulmonary Embolus (PE), Renal Disease Additional Past Medical History / Comment(s): sticky platelet syndrome, bronchitis, anx/depression, falls History of Any Multi-Drug Resistant Organisms: ESBL Date of last positivie culture/infection: 10/15/18 ESBL MDRO Source:: Urine Past Surgical History: Cholecystectomy, Coronary Bypass/CABG Additional Past Surgical History / Comment(s): ltBKA, left lower leg, aortic bypass right leg, right leg fasciotomy.pt stated had another vascular sx after the fasciotomy at [facility] unclear as to exactly what was done Rt BKA Past Anesthesia/Blood Transfusion Reactions: No Reported Reaction Additional Past Anesthesia/Blood Transfusion Reaction / Comment(s): pt stated has had a blood transfusion in past-no reaction Past Psychological History: Anxiety, Depression Smoking Status: Former smoker Past Alcohol Use History: None Reported - Past Family History Mother Additional Family Medical History / Comment(s): MS, legally blind, cataracts Father Additional Family Medical History / Comment(s): Was younger when he , car accident General Exam Limitations: no limitations General appearance: alert, in no apparent distress Head exam: Present: atraumatic, normocephalic Eye exam: Present: normal appearance, PERRL ENT exam: Present: normal exam Neck exam: Present: normal inspection, tenderness Respiratory exam: Present: normal lung sounds bilaterally. Absent: respiratory distress, wheezes Cardiovascular Exam: Present: regular rate, normal rhythm GI/Abdominal exam: Present: soft, tenderness (Mild right upper quadrant). Absent: distended, guarding, rebound Extremities exam: Present: other (Right enkqq-ghq-mkau amputation, left below the knee amputation) Back exam: Present: other (Several decubitus ulcers, sacrum, and right hip, no surrounding induration or cellulitis. Stage III) Neurological exam: Present: alert, oriented X3 Psychiatric exam: Present: normal affect, normal mood Skin exam: Present: warm, dry, intact. Absent: cyanosis, diaphoretic Course Vital Signs 10/25/18 10/25/18 10/25/18 17:14 19:03 20:47 Temperature 98.3 F Pulse Rate 115 H 99 87 Respiratory 16 18 18 Rate Blood Pressure 83/49 97/69 91/65 O2 Sat by Pulse 92 L 100 99 Oximetry Medical Decision Making - Medical Decision Making 48-year-old female presenting with fever, concern for urinary tract infection as well as nausea vomiting and dehydration. Patient has normal white blood cell count 3.9, Hemoccult stable 12.5, sodium 136, potassium mildly elevated 5.8 although there is slight hemolysis. Patient has elevated AST, ALT, and alkaline phosphatase as well as some mild right upper quadrant tenderness. She has had previously cholecystectomy. Ultrasound right upper quadrant is obtained , shows, bile duct 0.9, no other acute findings. Patient has persistent urinary tract infection with 26 white cells and rare bacteria. Given her ongoing symptoms she will be admitted for both dehydration as well as IV antibiotics awaiting culture results. Thyroid studies will be added and are pending. Case discussed with admitting physician. - Lab Data Result diagrams: 10/25/18 17:58 10/25/18 17:58 Lab Results 10/25/18 10/25/1818 Range/Units 17:58 17:58 17:58 WBC 3.9 (3.8-10.6) k/uL RBC 4.29 (3.80-5.40) m/uL Hgb 12.5 (11.4-16.0) gm/dL Hct 41.5 (34.0-46.0) % MCV 96.8 (80.0-100.0) fL MCH 29.1 (25.0-35.0) pg MCHC 30.0 L (31.0-37.0) g/dL RDW 16.4 H (11.5-15.5) % Plt Count 283 (150-450) k/uL Neutrophils % (Manual) 76 % Lymphocytes % (Manual) 19 % Monocytes % (Manual) 5 % Neutrophils # (Manual) 2.96 (1.3-7.7) k/uL Lymphocytes # (Manual) 0.74 L (1.0-4.8) k/uL Monocytes # (Manual) 0.20 (0-1.0) k/uL Nucleated RBCs 0 (0-0) /100 WBC Manual Slide Review Performed Hypochromasia Moderate Anisocytosis Slight Sodium 136 L (137-145) mmol/L Potassium 5.8 H (3.5-5.1) mmol/L Chloride 107 (98-107) mmol/L Carbon Dioxide 21 L (22-30) mmol/L Anion Gap 8 mmol/L BUN 25 H (7-17) mg/dL Creatinine 1.02 (0.52-1.04) mg/dL Est GFR (CKD-EPI)AfAm 75 (>60 ml/min/1.73 sqM) Est GFR (CKD-EPI)NonAf 65 (>60 ml/min/1.73 sqM) Glucose 79 (74-99) mg/dL Plasma Lactic Acid Faisal (0.7-2.0) mmol/L Calcium 8.8 (8.4-10.2) mg/dL Total Bilirubin 0.7 (0.2-1.3) mg/dL AST 139 H (14-36) U/L ALT 71 H (9-52) U/L Alkaline Phosphatase 187 H (38-126) U/L Total Protein 8.0 (6.3-8.2) g/dL Albumin 3.1 L (3.5-5.0) g/dL Urine Color Urine Appearance (Clear) Urine pH (5.0-8.0) Ur Specific [place] (1.001-1.035) Urine Protein (Negative) Urine Glucose (UA) (Negative) Urine Ketones (Negative) Urine Blood (Negative) Urine Nitrite (Negative) Urine Bilirubin (Negative) Urine Urobilinogen (<2.0) mg/dL Ur Leukocyte Esterase (Negative) Urine RBC (0-5) /hpf Urine WBC (0-5) /hpf Urine Bacteria (None) /hpf Cellular Casts (0) /lpf Hyaline Casts (0-2) /lpf Urine Mucus (None) /hpf Influenza Type A RNA Not Detected (Not Detectd) Influenza Type B (PCR) Not Detected (Not Detectd) 10/25/18 10/25/18 Range/Units 17:58 17:58 WBC (3.8-10.6) k/uL RBC (3.80-5.40) m/uL Hgb (11.4-16.0) gm/dL Hct (34.0-46.0) % MCV (80.0-100.0) fL MCH (25.0-35.0) pg MCHC (31.0-37.0) g/dL RDW (11.5-15.5) % Plt Count (150-450) k/uL Neutrophils % (Manual) % Lymphocytes % (Manual) % Monocytes % (Manual) % Neutrophils # (Manual) (1.3-7.7) k/uL Lymphocytes # (Manual) (1.0-4.8) k/uL Monocytes # (Manual) (0-1.0) k/uL Nucleated RBCs (0-0) /100 WBC Manual Slide Review Hypochromasia Anisocytosis Sodium (137-145) mmol/L Potassium (3.5-5.1) mmol/L Chloride (98-107) mmol/L Carbon Dioxide (22-30) mmol/L Anion Gap mmol/L BUN (7-17) mg/dL Creatinine (0.52-1.04) mg/dL Est GFR (CKD-EPI)AfAm (>60 ml/min/1.73 sqM) Est GFR (CKD-EPI)NonAf (>60 ml/min/1.73 sqM) Glucose (74-99) mg/dL Plasma Lactic Acid Faisal 1.7 (0.7-2.0) mmol/L Calcium (8.4-10.2) mg/dL Total Bilirubin (0.2-1.3) mg/dL AST (14-36) U/L ALT (9-52) U/L Alkaline Phosphatase (38-126) U/L Total Protein (6.3-8.2) g/dL Albumin (3.5-5.0) g/dL Urine Color Yellow Urine Appearance Cloudy H (Clear) Urine pH 6.5 (5.0-8.0) Ur Specific [place] 1.014 (1.001-1.035) Urine Protein 1+ H (Negative) Urine Glucose (UA) Negative (Negative) Urine Ketones Negative (Negative) Urine Blood Negative (Negative) Urine Nitrite Negative (Negative) Urine Bilirubin Negative (Negative) Urine Urobilinogen <2.0 (<2.0) mg/dL Ur Leukocyte Esterase Large H (Negative) Urine RBC 4 (0-5) /hpf Urine WBC 26 H (0-5) /hpf Urine Bacteria Rare H (None) /hpf Cellular Casts 1 (0) /lpf Hyaline Casts 1 (0-2) /lpf Urine Mucus Rare H (None) /hpf Influenza Type A RNA (Not Detectd) Influenza Type B (PCR) (Not Detectd) Disposition Clinical Impression: Dehydration, UTI (urinary tract infection) Disposition: ADMITTED IP TO THIS HOSP Condition: Stable Is patient prescribed a controlled substance at d/c from ED?: No Referrals: Garcia Resendez MD [Primary Care Provider] - 1-2 days Time of Disposition: 21:19
[2018-10-25 18:32] LABS: Anisocytosis Slight; HCT 41.5 % (34.0-46.0); HGB 12.5 gm/dL (11.4-16.0); Hypochromasia Moderate; MCH 29.1 pg (25.0-35.0); MCV 96.8 fL (80.0-100.0); Mean Platelet Volume 7.8; Platelet Count 283 k/uL (150-450); RBC 4.29 m/uL (3.80-5.40); RDW 16.4 % (11.5-15.5); WBC 3.9 k/uL (3.8-10.6)
[2018-10-25 18:41] LABS: Albumin 3.1 g/dL (3.5-5.0); Calcium 8.8 mg/dL (8.4-10.2); Potassium 5.8 mmol/L (3.5-5.1); Total Bilirubin 0.7 mg/dL (0.2-1.3)
[2018-10-25] MEDS ORDERED: MORPHINE SULFATE 4 MG/ML SYRINGE IM STA (19:07)
[2018-10-25 19:09] LABS: Appearance,Urine Cloudy (Clear); Bacteria,Urine Rare /hpf; Bilirubin,Urine Negative (Negative); Blood,Urine Negative (Negative); Cellular Casts,Urine 1 /lpf (0); Color,Urine Yellow; Glucose,Urine (UA) Negative (Negative); Hyaline Casts,Urine 1 /lpf (0-2); Ketones,Urine Negative (Negative); Leukocyte Esterase,Urine Large (Negative); Mucus,Urine Rare /hpf; Nitrite,Urine Negative (Negative); PH, Urine 6.5 (5.0-8.0); Protein,Urine 1+ (Negative); RBC,Urine 4 /hpf (0-5); Specific Gravity,Urine 1.014 (1.001-1.035); Urobilinogen,Urine <2.0 mg/dL (<2.0); WBC,Urine 26 /hpf (0-5)
--- NOTE | 2018-10-25 19:10 | XR ---
EXAMINATION TYPE: XR chest 2V DATE OF EXAM: 10/25/2018 COMPARISON: August 31, 2018 HISTORY: Fever TECHNIQUE: Frontal and lateral views of the chest are obtained. FINDINGS: Heart and mediastinum are normal. Lungs are clear. Costophrenic angles are clear. Bony tho rax is intact. IMPRESSION: No active cardiopulmonary disease. There is clearing of the infiltrates and pleural flui d and pulmonary congestion compared to old exam.
[2018-10-25 19:17] LABS: Lymphocytes # (M) 0.74 k/uL (1.0-4.8); Neutrophils # (M) 2.96 k/uL (1.3-7.7); Neutrophils % (M) 76 %; Nucleated Red Blood Cells 0 /100 WBC (0-0); Total Cells Counted 100
[2018-10-25] MEDS ORDERED: MORPHINE SULFATE 4 MG/ML SYRINGE IVP STA (20:32)
[2018-10-25] MEDS: SODIUM CHLORIDE 0.9% 1,000 ML IV SCH (20:46)
--- NOTE | 2018-10-25 21:05 | US ---
EXAMINATION TYPE: US gallbladder DATE OF EXAM: 10/25/2018 COMPARISON: NONE CLINICAL HISTORY: Pain. Pain EXAM MEASUREMENTS: Liver Length: 14.7 cm Gallbladder Wall: Surgically absent cm CBD: 0.9 cm Right Kidney: 8.2 x 2.9 x 4.0 cm Pancreas: Obscured by bowel gas Liver: wnl Gallbladder: Surgically absent Evidence for sonographic Choi's sign: No CBD: Dilated. Right Kidney: wnl IMPRESSION: No focal liver defect. Cholecystectomy. No dilated ducts.
[2018-10-25] MEDS ORDERED: ACETAMINOPHEN TAB 325 MG TAB PO PRN (21:12)
[2018-10-25] MEDS ORDERED: NALOXONE 0.4 MG/ML 1 ML VIAL IV PRN (21:12)
[2018-10-25] MEDS ORDERED: LEVOFLOXACIN 500MG-D5W PMX 500 MG in DEXTROSE/WATER 1 100ML.BAG IVPB STA (21:46)
[2018-10-25 23:03] LABS: T4, Free (Free Thyroxine) 0.99 ng/dL (0.78-2.19)
[2018-10-25] MEDS: MORPHINE SULFATE 4 MG/ML SYRINGE IV PRN (23:19)
[2018-10-26 00:35] VITALS: BMI 14.6
[2018-10-26] MEDS: MORPHINE SULFATE 4 MG/ML SYRINGE IV PRN ×5 (03:04→20:00)
[2018-10-26] MEDS ORDERED: POLYETHYLENE GLYCOL 3350 17 GM POWD.PACK PO PRN (10:52)
[2018-10-26 11:02] LABS: Anisocytosis Slight; Basophils % (A) 1 %; Eosinophils # (A) 0.1 k/uL (0-0.7); Eosinophils % (A) 2 %; HCT 34.1 % (34.0-46.0); HGB 10.1 gm/dL (11.4-16.0); Hypochromasia Marked; Lymphocytes # (A) 0.8 k/uL (1.0-4.8); Lymphocytes % (A) 18 %; MCH 29.2 pg (25.0-35.0); MCHC 29.5 g/dL (31.0-37.0); MCV 98.8 fL (80.0-100.0); Macrocytosis Slight; Mean Platelet Volume 6.9; Monocytes # (A) 0.2 k/uL (0-1.0); Monocytes % (A) 5 %; Neutrophils # (A) 3.3 k/uL (1.3-7.7); Neutrophils % (A) 74 %; Platelet Count 297 k/uL (150-450); RBC 3.45 m/uL (3.80-5.40); RDW 16.4 % (11.5-15.5); WBC 4.5 k/uL (3.8-10.6)
[2018-10-26] MEDS: SODIUM CHLORIDE 0.9% 1,000 ML IV SCH ×2 (11:10→20:13)
[2018-10-26 11:22] LABS: Albumin 2.3 g/dL (3.5-5.0); Calcium 8.3 mg/dL (8.4-10.2); Potassium 5.1 mmol/L (3.5-5.1); Total Bilirubin 0.2 mg/dL (0.2-1.3)
[2018-10-26] MEDS: IOPAMIDOL-300 CONTRAST 30 ML VIAL (ORAL USE) PO PRN ×2 (11:27→12:43)
--- NOTE | 2018-10-26 16:04 | CT ---
EXAMINATION TYPE: CT abdomen pelvis w con DATE OF EXAM: 10/26/2018 COMPARISON: 08/01/2018 HISTORY: 48-year-old female Right sided abdominal pain TECHNIQUE: Contiguous axial scanning of the abdomen and pelvis without IV contrast; coronal and sagit modesta reconstructions performed. CT DLP: 363 mGycm Automated exposure control for dose reduction was used. FINDINGS: Cachectic state with anasarca change drastically limits the evaluation. There is low density of the b lood pool suggesting clinically significant anemia. Lung bases clear without pleural effusion. Intrahepatic and extra hepatic biliary ductal dilatation appears slightly increased from prior with t he bile duct now measuring 1.1 cm versus 8 mm, previously. Cholecystectomy clips are present. Unable to adequately delineate vascular and lymph node structures. Surgical changes along the stomach are also not well characterized but may reflect Shilpa-en-Y gastric bypass. Multiple vascular stents and grafts are present in the pelvis. Moderate stool burden. Oral contrast has progressed to the distal small bowel. The rectum is distende d up to 5.6 cm wide with stool. Scott catheter is present. Osteopenia. Left hip screw fixation. Degenerative changes right hip. Degenerative changes lower lumba r spine. IMPRESSION: 1. EXAM QUALITY IS SEVERELY COMPROMISED DUE TO LACK OF IV CONTRAST, CACHECTIC STATE, AND SEVERE ANASA RCA CHANGE. 2. STATUS POST SHILPA-EN-Y GASTRIC BYPASS. NO EVIDENCE FOR BOWEL OBSTRUCTION. ORAL CONTRAST REACHES TO THE DISTAL SMALL BOWEL. 3. MODERATE STOOL BURDEN. RECTUM IS DISTENDED UP TO 5.67 M WIDE WITH STOOL. SCOTT CATHETER IS IN PLAC E. 4. MULTIPLE STENTS AND GRAFTS IN THE PELVIS AND UPPER THIGHS ARE NOT ADEQUATELY ASSESSED ON THIS NONC ONTRAST STUDY. 5. THERE SEEMS TO BE SOME INCREASE IN THE DEGREE OF BILIARY DUCTAL DILATATION. THIS COULD BE SECONDAR Y TO POSTCHOLECYSTECTOMY STATUS. CORRELATE WITH ALKALINE PHOSPHATASE AND BILIRUBIN LEVELS.
[2018-10-26] MEDS ORDERED: SODIUM CHLORIDE 0.9% 500 ML 500 ML IV ONE (16:20)
[2018-10-26] MEDS ORDERED: IOPAMIDOL-300 CONTRAST 30 ML VIAL (ORAL USE) PO PRN (16:23)
--- NOTE | 2018-10-26 16:34 | HP ---
HISTORY AND PHYSICAL CHIEF COMPLAINT: Dehydration, weakness and urinary tract infection. HISTORY OF PRESENT ILLNESS: This is the first known admission for this 48-year-old -[place] female. She is extremely cachectic. She comes in with dehydration, weakness and urinary tract infection. She states she has been losing weight rapidly in the last 3 months. She has had 2 pregnancies, one delivery and one miscarriage. She has a past medical history of congestive heart failure and CKD. 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 She denies a history of strokes or infarctions. In the emergency room she had a chest x-ray which actually was improved from one done some time in the past. When she was in the emergency room, she was not febrile. Laboratory studies were essentially unremarkable. White count was 3900, hemoglobin 12.5. Platelets were normal. Sodium was 136, potassium was slightly high at 5.8. BUN was 25 and creatinine 1.02. AST was up at 139 and ALT was a little high at 71. Alkaline phosphatase was 187, which is also elevated. REVIEW OF SYSTEMS: She denies any headaches, focal neurologic deficits, cough, hemoptysis, chest pain, murmurs, fever, angina, nausea, vomiting, hematemesis, melena, hematochezia, jaundice, hematuria, frequency, urgency, renal failure, diabetes, etc. Past medical history, family history, and personal and social histories reveal that she is ALLERGIC TO TRAZODONE AND NSAIDS. Medications include: 1. MiraLAX. 2. Aspirin. 3. Atorvastatin. 4. Colace. 5. Lovenox. 6. Isordil. 7. Megace. 8. Protonix. 9. Seroquel. 10.Senna. In the past she was on Plavix, Flexeril, Remeron, Cortef, Lopressor, MS Contin and Demadex. She has had a colonoscopy in the last year or 2 which was normal, and her last Pap smear was this year. She follows with Cardiology and Nephrology. PHYSICAL EXAMINATION: Temperature 98.3, pulse 115, respirations 16, blood pressure 83/49. In general she appeared to be extremely asthenic. She was very dehydrated. Skin was dry. Head, ears, eyes, nose, mouth and throat were unremarkable. Neck veins did not seem to be distended. Carotids seemed to be normal. Her chest was clear. Cardiac exam demonstrated sinus rhythm and no murmurs or extra sounds. The abdomen was scaphoid and flat. She was slightly tender in the right upper quadrant, but there were no masses. Bowel sounds were present. Extremities demonstrated her left BK amputation and right one as well. Neurologically she was intact. She is admitted to the hospital with the diagnoses: 1. Dehydration. 2. Urinary tract infection. 3. Cachexia. 4. Unexplained weight loss. 5. Congestive heart failure. 6. Renal failure. 7. Right upper quadrant pain with elevated liver function studies. PLAN: 1. Bed rest. 2. IV fluids. 3. Work up etiology of her abdominal pain and elevated liver function studies. 4. Consult with Hematology. MMODL / IJN: [id number] /
[2018-10-26] MEDS: HYDROCORTISONE 10 MG TAB PO SCH ×2 (17:05→21:21)
--- NOTE | 2018-10-26 17:29 | PN ---
PROGRESS NOTE DATE OF SERVICE: 10/26/2018 CHIEF COMPLAINT: Dehydration, urinary tract infection and unexplained weight loss for 3 months. HISTORY OF PRESENT ILLNESS: This lady is doing fairly well and she is not complaining of a lot of lower abdominal pain. She still describes right upper quadrant pain. The gallbladder has been removed. Liver functions are elevated and this is being investigated. CT has been ordered. PHYSICAL EXAM: Chest is clear. Cardiac exam is normal. Abdomen is soft, nontender. IMPRESSION: 1. Right upper quadrant pain. 2. Urinary tract infection. 3. Dehydration. 4. Unexplained weight loss. 5. 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 PLAN: 1. Go ahead with a CT of the abdomen and pelvis. 2. Continue with IV fluids and antibiotics. MMODL / IJN: [id number] /
[2018-10-26] MEDS ORDERED: TRIAD TOPICAL SCH (21:00)
[2018-10-26] MEDS ORDERED: SULFAMETHOX-TMP 800-160MG 1 EACH TAB PO SCH (21:00)
[2018-10-26] MEDS ORDERED: HYDROPHILIC CREAM 120 GM JAR TOPICAL SCH (21:00)
[2018-10-26] MEDS: DOCUSATE 100 MG CAP PO SCH (21:19)
[2018-10-26] MEDS: METOPROLOL TARTRATE 12.5 MG TAB PO SCH (21:21)
[2018-10-26] MEDS: MIRTAZAPINE 15 MG TAB PO PRN (21:21)
[2018-10-27] MEDS: MORPHINE SULFATE 4 MG/ML SYRINGE IV PRN ×6 (00:46→23:24)
[2018-10-27] MEDS: SODIUM CHLORIDE 0.9% 1,000 ML IV SCH (04:42)
[2018-10-27] MEDS: ISOSORBIDE MONONITRATE ER 30 MG TAB.ER.24H PO SCH (09:06)
[2018-10-27] MEDS: METOPROLOL TARTRATE 12.5 MG TAB PO SCH ×2 (09:06→22:33)
[2018-10-27] MEDS: LISINOPRIL 2.5 MG TAB PO SCH (09:07)
[2018-10-27] MEDS: DOCUSATE 100 MG CAP PO SCH ×2 (09:08→22:36)
[2018-10-27] MEDS: CLOPIDOGREL 75 MG TAB PO SCH (09:08)
[2018-10-27] MEDS: ASPIRIN 81 MG PO SCH (09:08)
[2018-10-27] MEDS: MEGESTROL 400 MG/10 ML CUP PO SCH (09:08)
[2018-10-27] MEDS: PANTOPRAZOLE 40 MG TABLET PO SCH (09:08)
[2018-10-27] MEDS: HYDROCORTISONE 10 MG TAB PO SCH ×3 (09:09→22:36)
[2018-10-27] MEDS: TORSEMIDE 20 MG TAB PO SCH (09:10)
[2018-10-27] MEDS: LEVOFLOXACIN 250 MG TAB PO SCH (09:10)
[2018-10-27] MEDS: IOPAMIDOL-300 CONTRAST 30 ML VIAL (ORAL USE) PO PRN ×2 (12:16→13:15)
[2018-10-27] MEDS: COLLAGENASE 250 UNIT/GM OINTMENT 30 GM TUBE TOPICAL SCH (13:16)
--- NOTE | 2018-10-27 17:09 | CT ---
EXAMINATION TYPE: CT abdomen pelvis w con DATE OF EXAM: 10/27/2018 HISTORY: Abdominal pain CT DLP: 397.7mGycm Automated Exposure Control for Dose Reduction was Utilized. CONTRAST: CT scan of the abdomen and pelvis is performed with IV Contrast, patient injected with 100 ml mL of I sovue 300. COMPARISON: 10/26/2018. FINDINGS: Again there is cachexia, diffuse anasarca, and diffuse ascites all extremely limiting the e valuation. Large degree of retained colonic stool also limits evaluation of the bowel. LUNG BASES: Left ventricular apical filling defect is seen measuring approximately 2.4 cm this could represent intraventricular mass or more likely thrombus. LIVER/GB: Intrahepatic biliary ductal dilatation is seen as well as wedge-shaped subcapsular arterial ly enhancing regions such as on image 22 of series 205. These most likely represent either arterial p ortal shunts or transient hepatic attenuation differences. PANCREAS: There is diffuse pancreatic atrophy and pancreas is overall poorly visualized. SPLEEN: No significant abnormality is seen. ADRENALS: Adrenal glands are difficult to visualize. KIDNEYS: Bilateral striated nephrogram is seen that does not appear to spare the cortex. The urinary bladder is distended despite the placement of the Joyce catheter. Air is seen within the urinary blad elva that may be related to recent instrumentation. 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 There is a large deg ree of retained colonic stool. Small bowel dilatation within the left mid abdomen measures up to 5.2 cm, overall similar to the prior. LYMPH NODES: Markedly limited exam for evaluation of adenopathy OSSEOUS STRUCTURES: There is diffuse osseous demineralization limiting evaluation of the osseous stru ctures. Degenerative changes of the lumbar spine and right femoral acetabular joint are again noted. Left femoral arthroplasty is noted. OTHER: There is an extremely diminutive caliber of the inferior vena cava suggestive of marked hypovo lemia. VASCULATURE: There is right eccentric mural thrombus within the upper abdominal aorta. At the level o f the celiac artery there is less than 50% stenosis on image 18, however at the level of the superior mesenteric artery there is greater than 50% stenosis and inferior to the superior mesenteric artery there is complete occlusion of the abdominal aorta with no significant flow seen to the kidneys. Comp lete occlusion of the abdominal aorta is seen throughout with no vascular flow identified in the femo ral arteries or iliac arteries. There is a femoral to femoral bypass graft which is either occluded o r nonopacified given the abdominal aortic occlusion. Few collateral small caliber vessels of the lowe r extremities are opacified appearing to feed the abdomen through subcutaneous collaterals along the lumbar spine. IMPRESSION: 1. Progressive occlusion of the abdominal aorta with occlusion now complete at the level of the renal arteries. Numerous right renal infarcts are similar to the prior however there are new numerous left renal infarcts. 2. Possible left ventricular apical thrombus. Echocardiogram is recommended for further evaluation. 3. Diffuse anasarca, cachexia, and ascites all limit the evaluation. 4. Extremely diminutive caliber of the inferior vena cava suggest marked hypovolemia. 5. Left mid abdominal small bowel dilatation favors ileus as contrast extends into the colon. 6. Again there is increase in biliary ductal dilatation and correlation with serum laboratory values is recommended to determine the need for ERCP or MRCP. Findings were communicated with the nurse Chelsy by Dr. Nuñez at 1503 on 10/27/18 as the ordering p hysician was unavailable after attempts and the office was closed. Chelsy will also attempt to kurt l the ordering physician and if unavailable cardiology consult will be made.
--- NOTE | 2018-10-27 17:36 | PN ---
PROGRESS NOTE CHIEF COMPLAINTS: Dehydration, urinary tract infection, abnormal weight loss. HISTORY OF PRESENT ILLNESS: This lady seems to be feeling well. She is going back for a repeat CT because the dye extravasated. There is no gross abnormality seen on the study yesterday but it will be repeated. PHYSICAL EXAM: Chest is clear. Cardiac exam is normal. Abdomen is soft, nontender. IMPRESSION: 1. Dehydration. 2. Urinary tract infection. 3. Unexplained weight loss. PLAN: 1. Repeat CT of the abdomen and pelvis. 2. States she has to be out of the hospital by tomorrow and we may have to continue her treatment and workup as an outpatient. MMODL / IJN: [id number] /
[2018-10-27] MEDS ORDERED: SODIUM CHLORIDE 0.9% 500 ML 500 ML IV ONE (19:19)
[2018-10-27] MEDS: MIRTAZAPINE 15 MG TAB PO PRN (23:30)
[2018-10-28] MEDS: SODIUM CHLORIDE 0.9% 1,000 ML IV SCH ×4 (00:05→17:03)
[2018-10-28] MEDS: MORPHINE SULFATE 4 MG/ML SYRINGE IV PRN ×4 (04:30→17:08)
[2018-10-28 08:01] VITALS: RESP 14; TEMP 98.7
[2018-10-28] MEDS: LEVOFLOXACIN 250 MG TAB PO SCH (08:33)
[2018-10-28] MEDS: TORSEMIDE 20 MG TAB PO SCH (08:33)
[2018-10-28] MEDS: MEGESTROL 400 MG/10 ML CUP PO SCH (08:33)
[2018-10-28] MEDS: METOPROLOL TARTRATE 12.5 MG TAB PO SCH (08:34)
[2018-10-28] MEDS: CLOPIDOGREL 75 MG TAB PO SCH (08:36)
[2018-10-28] MEDS: PANTOPRAZOLE 40 MG TABLET PO SCH (08:36)
[2018-10-28] MEDS: ASPIRIN 81 MG PO SCH (08:36)
[2018-10-28] MEDS: ISOSORBIDE MONONITRATE ER 30 MG TAB.ER.24H PO SCH (08:37)
[2018-10-28] MEDS: HYDROCORTISONE 10 MG TAB PO SCH ×2 (08:37→17:09)
[2018-10-28] MEDS: LISINOPRIL 2.5 MG TAB PO SCH (08:37)
[2018-10-28] MEDS: DOCUSATE 100 MG CAP PO SCH (10:36)
[2018-10-28] MEDS: COLLAGENASE 250 UNIT/GM OINTMENT 30 GM TUBE TOPICAL SCH (14:53)
--- NOTE | 2018-10-28 15:08 | P.CRDCN ---
History of Present Illness History of present illness: This is a pleasant 48-year-old -Welsh female past medical history significant for "sticky platelet disease", systolic heart failure, chronic kidney disease, CVA, DVT, PE, right AKA and left BKA. She adamently denies ever having had a history of coronary artery disease or bypass grafting. She also is a former smoker who quit earlier this year in December. She recently established with Dr. Gary in the office. We have been asked to see her in consultation for evidence of left ventricular filling defect likely risk control field representative of thrombus. Limited echo was ordered and revealed significant thromus in LV. When compared to echo on 08/2018 there was no thrombus at that time. EF less than 20%. She presented to the hospital with complaints of fever and is currently being treated for urinary tract infection. She is also been out of her pain medication is having significant abdominal pain. She denies symptoms of chest discomfort, shortness of breath, dizziness or palpitations. Current cardiac medications include aspirin 81 mg daily, Plavix 75 mg daily, lisinopril 2.5 mg daily, Imdur 30 mg daily, Lopressor 12.5 mg twice a day and Demadex 20 mg daily. She is also on Lovenox 40 mg twice a day secondary to her sticky platelet disease. Chest xray is negative for an acute cardiopulmonary process with clearing of infiltrates and pleural fluid. Laboratory data reviewed, WBC 4.5, hemoglobin 10.1, platelets 297, sodium 136, potassium 5.8, creatinine 0.88, AST 144, ALT 94, alkaline phosphatase 185, TSH 0.253 with a free T4 0.99. At the time of my exam: CONSTITUTIONAL: Denies fever. Denies chills. EYES: Denies blurred vision. Denies vision changes. Denies eye pain. EARS, NOSE, MOUTH & THROAT: Denies headache. Denies sore throat. Denies ear pain. CARDIOVASCULAR: Denies chest pain. Denies shortness of breath. Denies orthopnea. Denies PND. Denies palpitations. RESPIRATORY: Denies cough. GASTROINTESTINAL: Denies abdominal pain. Denies diarrhea. Denies constipation. Denies nausea. Denies vomiting. MUSCULOSKELETAL: Denies myalgias. INTEGUMENTARY: Denies pruitis. Denies rash. NEUROLOGIC: Denies numbness. Denies tingling. Denies weakness. PSYCHIATRIC: Denies anxiety. Denies depression. ENDOCRINE: Denies fatigue. Denies weight change. Denies polydipsia. Denies polyurina. GENITOURINARY: Denies burning, hematuria or urgency with micturation. HEMATOLOGIC: Denies history of anemia. Denies bleeding. Blood pressure 105/68 heart rate 102 afebrile and maintaining oxygen saturation on room air GENERAL: This is a 48-year-old in no apparent distress at the time of my examination. Frail. HEENT: Head is atraumatic, normocephalic. Pupils are equal, round. Sclerae anicteric. Conjunctivae are clear. Mucous membranes of the mouth are moist. Neck is supple. There is no jugular venous distention. No carotid bruit is heard. LUNGS: Clear to auscultation no wheezes, rales or rhonchi. No chest wall tenderness is noted on palpation or with deep breathing. Diminished bilaterally. HEART: Regular rate and rhythm with systolic ejection murmur at the base, no rubs or gallops. S1 and S2 heard. ABDOMEN: Soft, nontender. Bowel sounds are heard. No organomegaly noted. EXTREMITIES: No evidence of peripheral edema. VASCULAR: Right above the knee amputation, left below the knee amputation. NEUROLOGIC: Patient is awake, alert and oriented x3. ASSESSMENT Left ventricular thrombus Chronic systolic heart failure, EF less than 20%. Currently euvolemic. Hypertension History platelet disorder, unsure of exactly what. 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 She has seen a siphon operator out of [place] at [facility]. Maintained on plavix, aspirin and lovenox. History of PE and DVT in the past. History of CVA in the past Frail, BMI 14 PLAN Resume plavix, aspirin and lovenox at home doses. Will request an opinion from hematology. Should consider transfer to tertiary care center, preferably [facility], where she has received her hematology work-up and diagnosis. Prognosis guarded. commercial development manager aware of plans to transfer, awaiting PCP. Thank you kindly for this consultation. Nurse Practitioner note has been reviewed, I agree with a documented findings and plan of care. Patient was seen and examined. Past Medical History Past Medical History: Asthma, Heart Failure, CVA/TIA, Deep Vein Thrombosis (DVT) , Osteoarthritis (OA), Pulmonary Embolus (PE), Renal Disease Additional Past Medical History / Comment(s): sticky platelet syndrome, bronchitis, anx/depression, falls History of Any Multi-Drug Resistant Organisms: ESBL Date of last positivie culture/infection: 10/15/18 ESBL MDRO Source:: Urine Past Surgical History: Cholecystectomy, Coronary Bypass/CABG Additional Past Surgical History / Comment(s): ltBKA, left lower leg, aortic bypass right leg, right leg fasciotomy.pt stated had another vascular sx after the fasciotomy at [facility] unclear as to exactly what was done Rt BKA Past Anesthesia/Blood Transfusion Reactions: No Reported Reaction Additional Past Anesthesia/Blood Transfusion Reaction / Comment(s): pt stated has had a blood transfusion in past-no reaction Past Psychological History: Anxiety, Depression Additional Psychological History / Comment(s): Is cared for by her mother and of private residence. That a current tobacco smoker. Multiple tattoos. The experience. no travel. No animal exposures Smoking Status: Former smoker Past Alcohol Use History: None Reported Additional Past Alcohol Use History / Comment(s): started smoking at age 22 and quit 2017 was smoking 1/2ppd Past Drug Use History: None Reported - Past Family History Mother Additional Family Medical History / Comment(s): MS, legally blind, cataracts Father Additional Family Medical History / Comment(s): Was younger when he , car accident Medications and Allergies Home Medications Medication Instructions Recorded Confirmed Type Morphine Sulfate [Ms Contin] 100 mg PO Q12H #6 tablet.er 09/07/18 10/25/18 Rx Lisinopril [Zestril] 2.5 mg PO DAILY 10/25/18 10/25/18 History Sulfamethox-Tmp 800-160Mg [Bactrim 1 tab PO Q12HR 10/25/18 10/25/18 History DS 800-160 mg] Aspirin EC [Ecotrin Low Dose] 81 mg PO DAILY 10/26/18 10/26/18 History Atorvastatin [Lipitor] 40 mg PO DAILY 10/26/18 10/26/18 History Clopidogrel [Plavix] 75 mg PO DAILY 10/26/18 10/26/18 History Cyclobenzaprine [Flexeril] 10 mg PO TID PRN 10/26/18 10/26/18 History Docusate [Colace] 100 mg PO BID 10/26/18 10/26/18 History Enoxaparin [Lovenox] 40 mg SQ Q12H 10/26/18 10/26/18 History HYDROmorphone HCL [Dilaudid] 8 mg PO Q8H 10/26/18 10/26/18 History Hydrocortisone [Cortef] 5 mg PO TID 10/26/18 10/26/18 History Isosorbide Mononitrate ER [Imdur] 30 mg PO DAILY 10/26/18 10/26/18 History Megestrol [Megace] 400 mg PO DAILY 10/26/18 10/26/18 History Metoprolol Tartrate [Lopressor] 12.5 mg PO BID 10/26/18 10/26/18 History Mirtazapine [Remeron] 30 mg PO HS PRN 10/26/18 10/26/18 History Pantoprazole Sodium 40 mg PO DAILY 10/26/18 10/26/18 History Polyethylene Glycol 3350 [Miralax] 17 gm PO DAILY PRN 10/26/18 10/26/18 History QUEtiapine [SEROquel] 25 mg PO HS 10/26/18 10/26/18 History Sennosides [Senna] 8.6 mg PO BID PRN 10/26/18 10/26/18 History Torsemide [Demadex] 20 mg PO DAILY 10/26/18 10/26/18 History Triad Cream 1 applic TOPICAL BID 10/26/18 10/26/18 History Allergies Allergy/AdvReac Type Severity Reaction Status Date / Time ibuprofen Allergy Unknown Verified 10/25/18 21:40 trazodone Allergy Chest Pain Verified 10/25/18 21:40 Physical Exam Vitals: Vital Signs Temp Pulse Resp BP BP Pulse Ox 10/28/18 07:00 98.7 F 102 H 14 105/68 99 10/28/18 04:24 103/70 10/28/18 01:10 98.8 F 112 H 15 95/63 99 10/27/18 22:04 15 10/27/18 20:54 98.5 F 105 H 15 102/66 100 10/27/18 17:30 98.8 F 104 H 14 86/49 100 10/27/18 16:00 16 Intake and Output 10/27/18 10/28/18 10/28/18 22:59 06:59 14:59 Intake Total 1230 600 440 Output Total 850 Balance 1230 -250 440 Intake: Intake, IV Titration 700 600 Amount Sodium Chloride 0.9% 1, 200 600 000 ml @ 100 mls/hr IV . Q10H [facility] Rx#:[id number] Sodium Chloride 0.9% 500 500 ml 500 ml @ 999 mls/hr IV .Q31M ONE Rx#:[id number] Oral 530 440 Output: Urine 850 Other: Voiding Method Diaper Diaper Indwelling Catheter Indwelling Catheter # Bowel Movements 1 1 Weight 36.5 kg Results 10/26/18 10:23 10/26/18 10:23 Current Medications Generic Name Dose Route Start Last Admin Trade Name Freq PRN Reason Stop Dose Admin Acetaminophen 650 mg 10/25/18 21:12 Tylenol Tab PO Q6HR PRN Mild Pain or Fever > 100.5 Aspirin 81 mg 10/27/18 09:00 10/28/18 08:36 Aspirin PO 81 mg DAILY [facility] Administration Clopidogrel Bisulfate 75 mg 10/27/18 09:00 10/28/18 08:36 Plavix PO 75 mg DAILY [facility] Administration Collagenase 1 applic 10/27/18 09:00 10/27/18 13:16 Santyl TOPICAL 1 applic DAILY [facility] Administration Docusate Sodium 100 mg 10/26/18 21:00 10/28/18 10:36 Colace PO Not Given BID [facility] Enoxaparin Sodium 40 mg 10/28/18 21:00 Lovenox SQ Q12HR [facility] Hydrocortisone 5 mg 10/26/18 16:00 10/28/18 08:37 Cortef PO 5 mg TID [facility] Administration Sodium Chloride 1,000 mls @ 100 mls/hr 10/25/18 20:45 10/28/18 08:32 Saline 0.9% IV 100 mls/hr .Q10H [facility] Administration Isosorbide Mononitrate 30 mg 10/27/18 09:00 10/28/18 08:37 Imdur PO 30 mg DAILY [facility] Administration Levofloxacin 250 mg 10/27/18 09:00 10/28/18 08:33 Levaquin PO 250 mg DAILY [facility] Administration Lisinopril 2.5 mg 10/27/18 09:00 10/28/18 08:37 Zestril PO 2.5 mg DAILY [facility] Administration Megestrol Acetate 400 mg 10/27/18 09:00 12/20/18 08:33 Megace PO Not Given DAILY [facility] Metoprolol Tartrate 12.5 mg 10/26/18 21:00 10/28/18 08:34 Lopressor PO 12.5 mg BID [facility] Administration Mirtazapine 30 mg 10/26/18 10:52 10/27/18 23:30 Remeron PO 30 mg HS PRN Administration Insomnia Morphine Sulfate 4 mg 10/25/18 21:12 10/28/18 13:29 Morphine Sulfate (Inj) IV 4 mg Q4HR PRN Administration Severe Pain Naloxone HCl 0.2 mg 10/25/18 21:12 Narcan IV Q2M PRN Opioid Reversal Pantoprazole Sodium 40 mg 10/27/18 07:30 10/28/18 08:36 Protonix PO 40 mg AC-BRKFST [facility] Administration Polyethylene Glycol 17 gm 10/26/18 10:52 Miralax PO DAILY PRN Constipation Torsemide 20 mg 10/27/18 09:00 10/28/18 08:33 Demadex PO 20 mg DAILY [facility] Administration Intake and Output 10/27/18 10/28/18 10/28/18 22:59 06:59 14:59 Intake Total 1230 600 440 Output Total 850 Balance 1230 -250 440 Intake: Intake, IV Titration 700 600 Amount Sodium Chloride 0.9% 1, 200 600 000 ml @ 100 mls/hr IV . Q10H [facility] Rx#:[id number] Sodium Chloride 0.9% 500 500 ml 500 ml @ 999 mls/hr IV .Q31M ONE Rx#:[id number] Oral 530 440 Output: Urine 850 Other: Voiding Method Diaper Diaper Indwelling Catheter Indwelling Catheter # Bowel Movements 1 1 Weight 36.5 kg 10/26/18 10:23 10/26/18 10:23
[2018-10-28 15:40] VITALS: BP 92/57; PULSE 101
[2018-10-28] MEDS ORDERED: HEPARIN SODIUM,PORCINE 5,000 UNIT/ML 1 ML VIAL IV ONE (16:50)
[2018-10-28] MEDS ORDERED: HEPARIN SOD,PORK IN 0.45% NACL 25,000 UNIT in 0.45% NACL 1 250ML.BAG IV SCH (17:00)
--- NOTE | 2018-10-28 17:14 | P.CONS ---
History of Present Illness - Reason for Consult Consult date: 10/28/18 Hypercoagulable on Lovenox Requesting physician: Simi Iraheta - Chief Complaint Chest and Abdominal Pain - History of Present Illness Ms Ruiz is a 48-year-old female who originally presented with a chief complaint of chest, abdominal pain and subjective fevers. She has a very complex history. Patient currently being treated for urinary tract infection. She has indwelling Joyce catheter. She has history of right [id number] amputation, left [id number] of amputation. 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 Most recently maintained on Lovenox and states she has remained compliant without missing any doses. She is complaining of some mild vomiting and diarrhea. She has been out of her pain medication for the past 4 days because her pain management physician office closed. She is concerned that the antibiotic she is currently on which is Bactrim is not treating her urinary tract infection. 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, possible left ventricular apical thrombus, multiple renal infarcts Review of Systems A 14 point review of systems assessed and completed and negative except HPI Past Medical History Past Medical History: Asthma, Heart Failure, CVA/TIA, Deep Vein Thrombosis (DVT) , Osteoarthritis (OA), Pulmonary Embolus (PE), Renal Disease Additional Past Medical History / Comment(s): sticky platelet syndrome, bronchitis, anx/depression, falls History of Any Multi-Drug Resistant Organisms: ESBL Year Discovered:: 10/15/18 ESBL MDRO Source:: Urine Past Surgical History: Cholecystectomy, Coronary Bypass/CABG Additional Past Surgical History / Comment(s): ltBKA, left lower leg, aortic bypass right leg, right leg fasciotomy.pt stated had another vascular sx after the fasciotomy at [facility] unclear as to exactly what was done Rt BKA Past Anesthesia/Blood Transfusion Reactions: No Reported Reaction Additional Past Anesthesia/Blood Transfusion Reaction / Comm: pt stated has had a blood transfusion in past-no reaction Past Psychological History: Anxiety, Depression Additional Psychological History / Comment(s): Is cared for by her mother and of private residence. That a current tobacco smoker. Multiple tattoos. The experience. no travel. No animal exposures Smoking Status: Former smoker Past Alcohol Use History: None Reported Additional Past Alcohol Use History / Comment(s): started smoking at age 22 and quit 2017 was smoking 1/2ppd Past Drug Use History: None Reported - Past Family History Mother Additional Family Medical History / Comment(s): MS, legally blind, cataracts Father Additional Family Medical History / Comment(s): Was younger when he , car accident Medications and Allergies Home Medications Medication Instructions Recorded Confirmed Type Morphine Sulfate [Ms Contin] 100 mg PO Q12H #6 tablet.er 09/07/18 10/25/18 Rx Lisinopril [Zestril] 2.5 mg PO DAILY 10/25/18 10/25/18 History Sulfamethox-Tmp 800-160Mg [Bactrim 1 tab PO Q12HR 10/25/18 10/25/18 History DS 800-160 mg] Aspirin EC [Ecotrin Low Dose] 81 mg PO DAILY 10/26/18 10/26/18 History Atorvastatin [Lipitor] 40 mg PO DAILY 10/26/18 10/26/18 History Clopidogrel [Plavix] 75 mg PO DAILY 10/26/18 10/26/18 History Cyclobenzaprine [Flexeril] 10 mg PO TID PRN 10/26/18 10/26/18 History Docusate [Colace] 100 mg PO BID 10/26/18 10/26/18 History Enoxaparin [Lovenox] 40 mg SQ Q12H 10/26/18 10/26/18 History HYDROmorphone HCL [Dilaudid] 8 mg PO Q8H 10/26/18 10/26/18 History Hydrocortisone [Cortef] 5 mg PO TID 10/26/18 10/26/18 History Isosorbide Mononitrate ER [Imdur] 30 mg PO DAILY 10/26/18 10/26/18 History Megestrol [Megace] 400 mg PO DAILY 10/26/18 10/26/18 History Metoprolol Tartrate [Lopressor] 12.5 mg PO BID 10/26/18 10/26/18 History Mirtazapine [Remeron] 30 mg PO HS PRN 10/26/18 10/26/18 History Pantoprazole Sodium 40 mg PO DAILY 10/26/18 10/26/18 History Polyethylene Glycol 3350 [Miralax] 17 gm PO DAILY PRN 10/26/18 10/26/18 History QUEtiapine [SEROquel] 25 mg PO HS 10/26/18 10/26/18 History Sennosides [Senna] 8.6 mg PO BID PRN 10/26/18 10/26/18 History Torsemide [Demadex] 20 mg PO DAILY 10/26/18 10/26/18 History Triad Cream 1 applic TOPICAL BID 10/26/18 10/26/18 History Allergies Allergy/AdvReac Type Severity Reaction Status Date / Time ibuprofen Allergy Unknown Verified 10/25/18 21:40 trazodone Allergy Chest Pain Verified 10/25/18 21:40 Physical Exam Vitals: Vital Signs Temp Pulse Resp BP BP Pulse Ox 10/28/18 15:20 98.7 F 101 H 14 92/57 98 10/28/18 07:00 98.7 F 102 H 14 105/68 99 10/28/18 04:24 103/70 10/28/18 01:10 98.8 F 112 H 15 95/63 99 10/27/18 22:04 15 10/27/18 20:54 98.5 F 105 H 15 102/66 100 10/27/18 17:30 98.8 F 104 H 14 86/49 100 Intake and Output 10/28/18 10/28/18 10/28/18 06:59 14:59 22:59 Intake Total 600 660 Output Total 850 900 Balance -250 -240 Intake: Intake, IV Titration 600 Amount Sodium Chloride 0.9% 1, 600 000 ml @ 100 mls/hr IV . Q10H [facility] Rx#:[id number] Oral 660 Output: Urine 850 900 Other: Voiding Method Diaper Indwelling Catheter # Bowel Movements 1 1 Weight 36.5 kg GEN: NAD Head: NC, NC Neck Supple Heart: Irreg Irreg Abdomen: Tender, Soft, evidence surgery Lungs: CTA bilateral, no increased effort Extremities: Right above knee amputation and Left below knee amputation No lymphadenopathy Joyce clear yellow Results CBC & Chem 7: 10/26/18 10:23 10/26/18 10:23 Labs: Microbiology - Last 24 Hours (Table) 10/25/18 17:58 Urine Culture - Final Urine,Voided Enterococcus faecalis 10/25/18 17:58 Blood Culture - Preliminary Blood No Growth after 48 hours Assessment and Plan Plan: Assessment and Recommendations: 1. 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 where her previous diagnosis, procedures and work-up have been performed. - Will stop lovenox and place heparin cayden Myers NP Medical Oncology, Hematology
--- NOTE | 2018-10-28 17:52 | PN ---
PROGRESS NOTE CHIEF COMPLAINT: Weakness, dehydration and urinary tract infection. HISTORY OF PRESENT ILLNESS: This lady is being worked up for what looks like a lesion in the left ventricular cavity. The current echocardiogram is being done at this time and looks like there is a pedunculated lesion hanging off the wall of the left ventricle. REVIEW OF SYSTEMS: She has no current problems of chest pain, shortness of breath, etc. She does feel better. PHYSICAL EXAM: Chest is clear. The cardiac exam is normal. Abdomen is soft and nontender. Extremities same. IMPRESSION: 1. Dehydration. 2. Urinary tract infection. 3. Lesion inside left ventricle-tumor ?, Clot ? PLAN: Cardiology is re-evaluating this lesion. She was explained that she may have to be transferred out of the area for care. MMODL / IJN: [id number] /
[2018-10-28 18:19] LABS: Anisocytosis Slight; Basophils % (A) 1 %; Eosinophils # (A) 0.1 k/uL (0-0.7); Eosinophils % (A) 1 %; HCT 31.5 % (34.0-46.0); HGB 8.7 gm/dL (11.4-16.0); Hypochromasia Marked; Lymphocytes # (A) 1.2 k/uL (1.0-4.8); Lymphocytes % (A) 21 %; MCH 29.6 pg (25.0-35.0); MCHC 27.8 g/dL (31.0-37.0); Macrocytosis Marked; Mean Platelet Volume 7.1; Monocytes # (A) 0.4 k/uL (0-1.0); Monocytes % (A) 6 %; Neutrophils % (A) 70 %; Platelet Count 374 k/uL (150-450); RBC 2.95 m/uL (3.80-5.40); RDW 17.1 % (11.5-15.5); WBC 5.7 k/uL (3.8-10.6)
[2018-10-28 18:20] LABS: MCV 106.8 fL (80.0-100.0)
[2018-10-28 18:57] LABS: Partial Thromboplastin Time 25.1 sec (22.0-30.0); Prothrombin Time 10.5 sec (9.0-12.0)
[2018-10-28] MEDS ORDERED: ENOXAPARIN 40 MG/0.4 ML SYRINGE SQ SCH (21:00)
--- NOTE | 2018-10-29 10:45 | ECHOF ---
Referral Reason:rule out thrombus left ventricle seen on CT MEASUREMENTS -------- HEIGHT: 157.5 cm WEIGHT: 36.3 kg BP: 103/70 FINDINGS -------- Sinus rhythm. Limited Study There is severe global hypokinesis of LV . Overall left ventricular systolic function is severely i mpaired with, an EF < 20%. The mass is located in the apical portion of the left ventricle. CONCLUSIONS -------- 1. Sinus rhythm. 2. Limited Study 3. There is severe global hypokinesis of LV . 4. Overall left ventricular systolic function is severely impaired with, an EF < 20%. 5. The mass is located in the apical portion of the left ventricle. INTERVENTIONAL NEURORADIOLOGIST: Asia Quintero RDCS
--- NOTE | 2018-10-30 09:08 | DS ---
DISCHARGE SUMMARY CHIEF COMPLAINT: Dehydration, urinary tract infection, abnormal weight loss. HISTORY OF PRESENT ILLNESS AND PHYSICAL EXAM: Details of this lady's history and physical can be found in the initial workup. LABORATORY STUDIES: While she was in the hospital, she had laboratory studies, details of which can be found in the laboratory section of her chart. COURSE IN HOSPITAL: After admission, she was placed on bedrest, started on intravenous fluids and IV antibiotics. She is cachectic and a history of significant weight loss. This was investigated and a CT of the abdomen was done. It was unremarkable except that there was suggestion that there might be something inside the left ventricle. She was subsequently sent for an echocardiogram, was found to have a lesion in the cavity of the left ventricle. It looked like as though it was pedunculated. It was thought that this could be a clot or possibly neoplasm. recommended that she be transferred to a tertiary Hospital and arranged for [place] [facility] [place]. FINAL DIAGNOSES: 1. Urinary tract infection. 2. Dehydration. 3. Unexplained weight loss. 4. Sticky platelet syndrome. 5. History of lower extremity amputations due to ischemia. 6. Lesion in the left ventricle. OPERATIONS: None. CONSULTATIONS: Cardiology. She is improved. MMODL / IJN: [id number] /
== END 2018-10-28 19:18 | disposition short-term general hospital (02) | DRG 690 ==
LOC: EC 17:00 → 4SSUR 21:19 → OBSVTOIN 10-28 14:34
PROVIDERS: ADMIT Family Medicine; ATTEND Family Medicine
DX: N39.0 Urinary tract infection, site not specified (principal); I13.0 Hypertensive heart and chronic kidney disease with heart failure and stage 1 through stage 4 chronic kidney disease, or unspecified chronic kidney disease; I50.22 Chronic systolic (congestive) heart failure; I24.0 Acute coronary thrombosis not resulting in myocardial infarction; N28.0 Ischemia and infarction of kidney; Z68.1 Body mass index [BMI] 19.9 or less, adult; D69.1 Qualitative platelet defects; E86.0 Dehydration; J45.909 Unspecified asthma, uncomplicated; N18.9 Chronic kidney disease, unspecified; F32.9 Major depressive disorder, single episode, unspecified; F41.9 Anxiety disorder, unspecified; M19.90 Unspecified osteoarthritis, unspecified site; R63.4 Abnormal weight loss; R74.0 Nonspecific elevation of levels of transaminase and lactic acid dehydrogenase [LDH]; I70.0 Atherosclerosis of aorta; Z79.02 Long term (current) use of antithrombotics/antiplatelets; Z79.82 Long term (current) use of aspirin; Z79.899 Other long term (current) drug therapy; Z79.01 Long term (current) use of anticoagulants; Z79.891 Long term (current) use of opiate analgesic; Z95.1 Presence of aortocoronary bypass graft; Z89.611 Acquired absence of right leg above knee; Z89.512 Acquired absence of left leg below knee; Z87.891 Personal history of nicotine dependence; Z86.73 Personal history of transient ischemic attack (TIA), and cerebral infarction without residual deficits; Z86.718 Personal history of other venous thrombosis and embolism; Z86.711 Personal history of pulmonary embolism; Z88.6 Allergy status to analgesic agent; Z88.8 Allergy status to other drugs, medicaments and biological substances; Z91.81 History of falling; Z90.49 Acquired absence of other specified parts of digestive tract; Z82.1 Family history of blindness and visual loss; Z82.0 Family history of epilepsy and other diseases of the nervous system; Z83.518 Family history of other specified eye disorder
CPT/HCPCS: 36415; 71046; 74177; 76705; 80053; 81001; 83605; 84439; 84443; 85025; 85610; 85730; 87040; 87077; 87086; 87186; 87502; 93308; 96372; 96374; 99285

== ENCOUNTER 2018-12-06 21:28 | Inpatient (IN) | payer MEDICARE, OTHER ==
--- NOTE | 2018-12-06 22:27 | XR ---
EXAMINATION TYPE: XR chest 2V DATE OF EXAM: 12/06/2018 COMPARISON: 10/25/2018 HISTORY: Chest pain TECHNIQUE: Frontal and lateral views of the chest are obtained. FINDINGS: Heart and mediastinum are normal. Lungs are clear. Diaphragm is normal. Bony thorax appear s normal. IMPRESSION: Normal chest. Normal heart. No change.
[2018-12-06 22:42] LABS: Basophils % (A) 0 %; Eosinophils # (A) 0.1 k/uL (0-0.7); Eosinophils % (A) 2 %; HCT 35.1 % (34.0-46.0); Hypochromasia Slight; Lymphocytes # (A) 1.1 k/uL (1.0-4.8); Lymphocytes % (A) 26 %; MCHC 31.4 g/dL (31.0-37.0); Macrocytosis Slight; Mean Platelet Volume 6.4; Monocytes # (A) 0.2 k/uL (0-1.0); Monocytes % (A) 5 %; Neutrophils # (A) 2.8 k/uL (1.3-7.7); Neutrophils % (A) 65 %; Platelet Count 380 k/uL (150-450); RBC 3.55 m/uL (3.80-5.40); RDW 15.4 % (11.5-15.5); WBC 4.2 k/uL (3.8-10.6)
[2018-12-06 22:45] LABS: MCV 98.8 fL (80.0-100.0)
--- NOTE | 2018-12-06 22:56 | ED ---
Chest Pain HPI - General Chief Complaint: Chest Pain Stated Complaint: Chest Pain Time Seen by Provider: 12/06/18 21:37 Source: patient, family Mode of arrival: wheelchair Limitations: no limitations - History of Present Illness Initial Comments: Shereen is a 48-year-old -Indian female with a history of sticky platelets syndrome with multiple complications who presents the emergency department today for evaluation of a day and a half of chest pain. Patient reports she was in her usual state of health yesterday, they went out to dinner and afterwards she developed some epigastric and chest discomfort which she attributed to having gas from the meal. She reports that she waited throughout the day today but the pain has not gone away and she became concerned that it may be related to her known aortic thrombus so she came to the ER for evaluation. In addition patient states that she has noticed her urine is malodorous and appears to be mucousy which is similar to previous episodes of urinary tract infection. - Related Data Home Medications Medication Instructions Recorded Confirmed Aspirin EC [Ecotrin Low Dose] 81 mg PO DAILY 10/26/18 12/06/18 Warfarin [Coumadin] 3 mg PO DAILY 11/24/18 11/24/18 Clopidogrel Bisulfate [Plavix] 75 mg PO DAILY 12/06/18 12/06/18 Allergies Allergy/AdvReac Type Severity Reaction Status Date / Time ibuprofen Allergy Unknown Verified 12/06/18 22:09 trazodone Allergy Chest Pain Verified 12/06/18 22:09 Review of Systems ROS Statement: Those systems with pertinent positive or pertinent negative responses have been documented in the HPI. ROS Other: All systems not noted in ROS Statement are negative. EKG Findings - EKG Comments: EKG Findings:: EKG obtained at 2154, rate is 83, rhythm is sinus, there is normal axis, there are normal intervals, TX 140, QRS 70, QTC is 474. There are no acute ST elevations or depressions there is no evidence of acute ischemia or infarction. Past Medical History Past Medical History: Asthma, Heart Failure, CVA/TIA, Deep Vein Thrombosis (DVT) , Osteoarthritis (OA), Pulmonary Embolus (PE), Renal Disease Additional Past Medical History / Comment(s): sticky platelet syndrome, bronchitis, anx/depression, falls History of Any Multi-Drug Resistant Organisms: ESBL Date of last positivie culture/infection: 10/15/18 ESBL MDRO Source:: Urine Past Surgical History: Cholecystectomy, Coronary Bypass/CABG Additional Past Surgical History / Comment(s): ltBKA, left lower leg, aortic bypass right leg, right leg fasciotomy.pt stated had another vascular sx after the fasciotomy at [facility] unclear as to exactly what was done Rt BKA Past Anesthesia/Blood Transfusion Reactions: No Reported Reaction Additional Past Anesthesia/Blood Transfusion Reaction / Comment(s): pt stated has had a blood transfusion in past-no reaction Past Psychological History: Anxiety, Depression Smoking Status: Former smoker Past Alcohol Use History: None Reported Past Drug Use History: None Reported - Past Family History Mother Additional Family Medical History / Comment(s): MS, legally blind, cataracts Father Additional Family Medical History / Comment(s): Was younger when he , car accident General Exam - General Exam Comments Initial Comments: GENERAL: Chronically ill-appearing, debilitated Smell strongly of cigarette smoke HENT: Normocephalic, Atraumatic. EYES: The sclera were anicteric and conjunctiva were pink and moist. Extraocular movements were intact and pupils were equal round and reactive to light. Eyelids were unremarkable. PULMONARY: Unlabored respirations. Good breath sounds bilaterally. No audible rales rhonchi or wheezing was noted. CARDIOVASCULAR: There is a regular rate and rhythm without any murmurs gallops or rubs. ABDOMEN: Soft and nontender with normal bowel sounds. SKIN: Skin is clear with no lesions or rashes and otherwise unremarkable. NEUROLOGIC: Patient is alert and oriented x3. Cranial nerves II through XII are grossly intac MUSCULOSKELETAL: Left lower extremity below knee amputation, right lower extremity above-knee amputation both stumps are well healed without tenderness, they're warm and well perfused LYMPHATICS: No significant lymphadenopathy is noted PSYCHIATRIC: Normal psychiatric evaluation. 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 ] Respiratory 18 Rate Blood Pressure 141/87 O2 Sat by Pulse 100 Oximetry Chest Pain MDM - MDM The patient was seen and evaluated history is obtained from the patient and review of medical records Labs and imaging were ordered Labs reveal mildly elevated BNP this is significantly less than previous INR is 1.1 despite patient reporting that she is compliant with her 6 mg of oral Coumadin every other night Imaging reveals right pulmonary embolus, patient states that she previously did not have a pulmonary embolus him Imaging again confirms the aortic thrombus with thrombus of the right renal artery and renal ischemia which appears to be worsening from previous We will plan to put the patient on heparin as her INR is subtherapeutic Patient care was discussed with Dr. Landeros who accepts the admission for subsegmental pulmonary embolism that developed while patient is taking aspirin Plavix and Coumadin as well as a subtherapeutic INR chronic aortic thrombosis, chronic renal artery thrombosis, renal infarction. Admission orders placed. Critical Care Time Critical Care Time: Yes Total Critical Care Time: 30 Critical Care Time: Critical Care Critical care time was exclusive of separately billable procedures and treating other patients Critical care was necessary to treat or prevent imminent or life-threatening deterioration. Critical care was time spent personally by me on the following activities: development of treatment plan with patient or surrogate, discussions with consultants, discussions with primary provider, evaluation of patient's response to treatment, examination of patient, obtaining history from patient or surrogate, ordering and performing treatments and interventions, ordering and review of laboratory studies, ordering and review of radiographic studies, pulse oximetry, re-evaluation of patient's condition and review of old charts. Disposition Clinical Impression: Pleuritic pain, Sticky platelet syndrome, Congestive heart failure, UTI ( urinary tract infection), Hypokalemia, Pulmonary embolism, Aortic embolism or thrombosis, Renal infarction Disposition: ADMITTED IP TO THIS HOSP Condition: Stable Referrals: Garcia Resendez MD [Primary Care Provider] - 1-2 days
[2018-12-06 22:58] LABS: ALT 82 U/L (9-52); AST 95 U/L (14-36); Albumin 2.5 g/dL (3.5-5.0); Alkaline Phosphatase 115 U/L (38-126); Amylase 153 U/L (30-110); Anion Gap 6 mmol/L; Blood Urea Nitrogen 23 mg/dL (7-17); Calcium 8.2 mg/dL (8.4-10.2); Carbon Dioxide 21 mmol/L (22-30); Chloride 113 mmol/L (98-107); Glucose 57 mg/dL (74-99); Magnesium 1.8 mg/dL (1.6-2.3); Potassium 2.8 mmol/L (3.5-5.1); Sodium 140 mmol/L (137-145); Total Bilirubin 0.2 mg/dL (0.2-1.3); Total Protein 6.2 g/dL (6.3-8.2)
[2018-12-06 23:01] LABS: INR 1.1 (<1.2); Partial Thromboplastin Time 25.4 sec (22.0-30.0); Prothrombin Time 11.5 sec (9.0-12.0)
[2018-12-06 23:02] LABS: Creatine Kinase 32 U/L (30-135)
[2018-12-06 23:14] LABS: Creatine Kinase MB 2.4 ng/mL (0.0-2.4); Troponin I <0.012 ng/mL (0.000-0.034)
[2018-12-06] MEDS ORDERED: MORPHINE SULFATE 4 MG/ML SYRINGE IVP STA (23:14)
[2018-12-06 23:43] LABS: Amorphous Sediment,Urine Occasional /hpf; Appearance,Urine Turbid (Clear); Bacteria,Urine Many /hpf; Bilirubin,Urine Negative (Negative); Blood,Urine Trace (Negative); Calcium Oxalate Crystals,Urine Few /hpf; Color,Urine Light Yellow; Glucose,Urine (UA) 1+ (Negative); Ketones,Urine Negative (Negative); Leukocyte Esterase,Urine Large (Negative); Nitrite,Urine Positive (Negative); PH, Urine 5.5 (5.0-8.0); Protein,Urine 1+ (Negative); RBC,Urine 6 /hpf (0-5); Specific Gravity,Urine 1.011 (1.001-1.035); Squamous Epithelial Cell,Urine 5 /hpf (0-4); Urobilinogen,Urine <2.0 mg/dL (<2.0)
[2018-12-07] MEDS ORDERED: HYDROmorphone 1 MG/ML 1 ML SYRINGE IVP STA ×2 (00:10→01:29)
[2018-12-07] MEDS ORDERED: Potassium Replacement Protocol 1 EACH MISC MISCELLANE PRN (01:18)
[2018-12-07] MEDS ORDERED: HEPARIN SODIUM,PORCINE 5,000 UNIT/ML 1 ML VIAL IV PRN (01:27)
[2018-12-07] MEDS ORDERED: HEPARIN SODIUM,PORCINE 10,000 UNIT/ML 1 ML VIAL IV ONE (01:27)
--- NOTE | 2018-12-07 01:28 | CT ---
EXAMINATION TYPE: CT angio thor/abd pel aorta DATE OF EXAM: 12/07/2018 COMPARISON: None HISTORY: Chest pain abdominal pain CT DLP: mGycm. Automated Exposure Control for Dose Reduction was Utilized. CONTRAST: CT scan of the thorax, abdomen and pelvis is performed , patient injected with mL of . The contrast w as Isovue 100 mL. There are 3-D post processed images. FINDINGS: The lungs are clear of infiltrate. There is no mediastinal adenopathy. Thoracic aorta is intact witho ut evidence of aneurysm or dissection. There are multiple small filling defects in the right lower lo be pulmonary artery. Liver shows no focal defect. Bile ducts are not dilated. There are clips from cholecystectomy. The dhillon perior mesenteric artery and celiac artery are patent. There is patency of the left renal artery. The re is occlusion of the right renal artery. There is decreased cortical enhancement of the right kidne y compared to the left. There is patchy cortical defects in both kidneys and much more on the right s dre. There is decreased size right kidney consistent with atrophy. There is complete occlusion of the abdominal aorta below the renal arteries. There are collateral vessels in the pelvis and arterial fl ow seen in the left and right inguinal regions from the collateral vessels. There is apparent arteria l flow in the profunda femoris arteries. There is femoral to femoral artery bypass graft that shows n o contrast. There is no flow seen in the left femoral artery graft. I see no evidence of a bowel obstruction. There is no free air. There is no ascites. I see no bony destructive process. There is no compression fracture in the thoracic and lumbar spine. IMPRESSION: Complete occlusion of the abdominal aorta below the renal arteries. There is right renal atrophy and ischemic changes. Complete occlusion right renal artery. There is progression of the right renal abno rmality compared to old CT scan. There are patchy areas of decreased cortical enhancement of the left kidney that are worse than last CT scan. There is Joyce catheter in the urinary bladder. There is air in the bladder probably from catheteriza tion. Right lower lobe pulmonary emboli. There are some collateral vessels in the pelvis in arterial flow seen in the left and right inguinal region. There is occlusion of the left femoral artery graft and the femoral-femoral bypass graft. Unc hanged. This exam was discussed with the ER physician Dr. Villalba at 1:30 AM.
[2018-12-07] MEDS ORDERED: NALOXONE 0.4 MG/ML 1 ML VIAL IV PRN (01:56)
[2018-12-07] MEDS ORDERED: POTASSIUM CHLORIDE ER 20 MEQ TAB.ER PO SCH (02:00)
[2018-12-07] MEDS: HEPARIN SOD,PORK IN 0.45% NACL 25,000 UNIT in 0.45% NACL 1 250ML.BAG IV SCH (02:08)
[2018-12-07] MEDS: POTASSIUM CHLORIDE 10 MEQ in WATER FOR INJECTION 1 100ML.BAG IVPB SCH ×6 (02:59→15:41)
[2018-12-07] MEDS: HYDROmorphone 0.5 MG/0.5 ML SYRINGE IVP PRN ×6 (04:47→20:58)
--- NOTE | 2018-12-07 07:55 | P.HPIM ---
History of Present Illness H&P Date: 12/07/18 Chief Complaint: Chest pain 48-year-old female with extensive past medical history including sticky platelet syndrome, multiple thromboembolic events, chronic systolic CHF with left ventricular ejection fraction of 20%. Patient presented to the hospital due to severe lower chest pain that has started around 24 hours ago, patient was at her baseline status of health when she was having dinner with family after which she started noticing the pain in her lower chest upper belly for which she thought this indigestion or gases. She power through it but due to persistence nature of the pain that she describes as dull deep pain 10 out of 10 in severity radiating to the back she decided to come to the hospital and get evaluated. Patient also reports lower abdominal pain with foul-smelling urine and seeing cloudy urine in her urinary catheter tube. She reports that due to urinary retention she has been having this catheter for over a month now since her last discharged from [facility] in [facility]. Last time it was replaced around 2 weeks ago. Patient reports that she is having subjective fevers and chills. Patient has history of ESBL in the past. In the emergency department CT angiogram was performed which showed right lower lobe pulmonary embolism which is thought to be new. Continues to show thrombosis of the thoracic aorta. 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 And patchy areas of decreased cortical enhancement of the left kidney which is worse compared to Occlusion of the left femoral artery graft and femoral-femoral bypass graft this is unchanged compared to before. Last encounter in October 2018 , patient was evaluated she was found to have progressive thromboembolic events despite being on Lovenox for which hematology recommended transfer for further evaluation and recommendations from [facility] where she was initially diagnosed with sticky platelet syndrome. It seems at that point patient was switched to Coumadin. Per patient report, over the past month since she has been started on Coumadin she has never been therapeutic. Otherwise patient denies any trouble breathing hemoptysis, denies any headache changes in her vision, she does report one or 2 loose bowel movements today, she denies any wounds or pressure ulcers at this time Patient reports she is getting evaluated for INR and Coumadin levels 2-3 times a week over the past month without ever being therapeutic Review of Systems Pertinent positives as noted in HPI. All other systems were reviewed and are negative Past Medical History Past Medical History: Asthma, Heart Failure, CVA/TIA, Deep Vein Thrombosis (DVT) , Osteoarthritis (OA), Pulmonary Embolus (PE), Renal Disease Additional Past Medical History / Comment(s): sticky platelet syndrome, bronchitis, anx/depression, falls History of Any Multi-Drug Resistant Organisms: ESBL Date of last positivie culture/infection: 10/15/18 ESBL MDRO Source:: Urine Past Surgical History: Cholecystectomy, Coronary Bypass/CABG Additional Past Surgical History / Comment(s): ltBKA, left lower leg, aortic bypass right leg, right leg fasciotomy.pt stated had another vascular sx after the fasciotomy at [facility] unclear as to exactly what was done Rt BKA Past Anesthesia/Blood Transfusion Reactions: No Reported Reaction Additional Past Anesthesia/Blood Transfusion Reaction / Comment(s): pt stated has had a blood transfusion in past-no reaction Past Psychological History: Anxiety, Depression Smoking Status: Former smoker Past Alcohol Use History: None Reported Past Drug Use History: None Reported - Past Family History Mother Additional Family Medical History / Comment(s): MS, legally blind, cataracts Father Additional Family Medical History / Comment(s): Was younger when he , car accident Medications and Allergies Home Medications Medication Instructions Recorded Confirmed Type Aspirin EC [Ecotrin Low Dose] 81 mg PO DAILY 10/26/18 12/06/18 History Warfarin [Coumadin] 3 mg PO DAILY 11/24/18 11/24/18 History Clopidogrel Bisulfate [Plavix] 75 mg PO DAILY 12/06/18 12/06/18 History Allergies Allergy/AdvReac Type Severity Reaction Status Date / Time ibuprofen Allergy Unknown Verified 12/06/18 22:09 trazodone Allergy Chest Pain Verified 12/06/18 22:09 Physical Exam Vitals: Vital Signs Temp Pulse Pulse Resp BP Pulse Ox 12/07/18 03:03 70 18 144/95 100 12/07/18 01:12 65 18 141/87 100 12/06/18 23:00 71 16 120/77 100 12/06/18 21:38 77 22 12/06/18 21:30 98.4 F 99 20 125/84 Intake and Output 12/06/18 12/06/18 12/07/18 14:59 22:59 06:59 Other: Weight 45.359 kg Constitutional: No acute distress, conversant, pleasant Eyes: Anicteric sclerae, moist conjunctiva, no lid-lag Pupils equal round reactive to light ENMT: NC/AT Oropharynx clear, no erythema, exudates Neck: Supple, FROM, no masses, or JVD No carotid bruits No thyromegaly Lungs: Clear to auscultation Clear to percussion Normal respiratory effort, no accessory muscle use Cardiovascular: Heart regular in rate and rhythm, No murmurs, gallops, or rubs No peripheral edema Abdominal: Soft Tenderness to palpation of the suprapubic region, no guarding no rebound tenderness nor rigidity Abdomen moving with respiration Normoactive bowel sounds No hepatomegaly, No splenomegaly No palpable mass No abdominal wall hernia noted Skin: Normal temperature, tone, texture, turgor No induration No subcutaneous nodules No rash, lesions Healing ulcer over the junction between the right thigh and the right buttocks, no tenderness palpation no erythema no drainage no induration patient has a pressure pads in place Extremities: Left BKA, right AKA No digital cyanosis No clubbing in her hands Radial pulses intact and symmetrical Psychiatric: Alert and oriented to person, place and time Appropriate affect fair judgment Neuro Muscles Strength 4/5 in all 4 extremities Sensation to light touch grossly present throughout Cranial nerves II-XII grossly intact No focal sensory deficits Lymphatics: no palpable cervical or supraclavicular , or inguinal lymph nodes Results CBC & Chem 7: 12/06/18 22:30 12/06/18 22:30 Labs: Abnormal Lab Results - Last 24 Hours (Table) 12/06/18 12/06/18 12/06/18 Range/Units 22:30 22:30 23:20 RBC 3.55 L (3.80-5.40) m/uL Hgb 11.0 L (11.4-16.0) gm/dL Potassium 2.8 L (3.5-5.1) mmol/L Chloride 113 H (98-107) mmol/L Carbon Dioxide 21 L (22-30) mmol/L BUN 23 H (7-17) mg/dL Glucose 57 L (74-99) mg/dL Calcium 8.2 L (8.4-10.2) mg/dL AST 95 H (14-36) U/L ALT 82 H (9-52) U/L Total Protein 6.2 L (6.3-8.2) g/dL Albumin 2.5 L (3.5-5.0) g/dL Amylase 153 H (30-110) U/L Urine Appearance Turbid H (Clear) Urine Protein 1+ H (Negative) Urine Glucose (UA) 1+ H (Negative) Urine Blood Trace H (Negative) Urine Nitrite Positive H (Negative) Ur Leukocyte Esterase Large H (Negative) Urine RBC 6 H (0-5) /hpf Urine WBC 80 H (0-5) /hpf Urine WBC Clumps Many H (None) /hpf Ur Squamous Epith Cells 5 H (0-4) /hpf Calcium Oxalate Crystal Few H (None) /hpf Amorphous Sediment Occasional H (None) /hpf Urine Bacteria Many H (None) /hpf Assessment and Plan Assessment: 48-year-old female with extensive past medical history including sticky platelet syndrome with peripheral arterial disease status post amputation bilateral lower extremities currently on Plavix aspirin and Coumadin. Patient admitted as an inpatient with anticipated length of stay more than 48 hours due to evidence of acute pulmonary bowel syndrome symptomatic with chest pain pleuritic in nature, patient also found to be hypokalemic currently having her potassium replaced. Last encounter in October 2018 , patient was evaluated she was found to have progressive thromboembolic events despite being on Lovenox for which hematology recommended further evaluation and recommendations from [facility] where she was initially diagnosed with sticky platelet syndrome. It seems at that point patient was switched to Coumadin. Per patient report, over the past month since she has been started on Coumadin she has never been therapeutic. Plan: New right lower lobe pulmonary embolism History of sticky platelet syndrome Multiple thromboembolic events in the past Subtherapeutic INR on Coumadin Peripheral arterial disease status post right AKA and left BKA Patient started on heparin drip Patient is not therapeutic despite being on Coumadin for 1 month now Please refer to the CT angiogram for the evidence of progressive nature of her thromboembolic events Consults hematology for further input Chronic systolic CHF with left ventricular ejection fraction of 20% currently compensated Continue home meds Possible urinary tract infection with chronic indwelling catheter, history of ESBL Urine and blood cultures Patient started empirically on Bactrim Hypokalemia, replace IV continue to monitor levels Magnesium unremarkable Chronic conditions Coronary artery disease Peripheral arterial disease Anemia, stable History of sacral decubitus ulcer, patient has healing small ulcer over the junction between the right thigh and right buttock no induration no erythema at this time DVT prophylaxis currently on heparin drip secondary to new pulmonary embolism Preformed a thorough record review from recent hospitalization as summarized in HPI Surrogate decision-maker: Patient mother CODE STATUS: Full code Discussed with: Patient, ER, RN Anticipated discharge: 48-[address]: Pending clinical course A total of 60 minutes was spent on the care of this complex patient more than 50 % of the time was spent in counseling and care coordination.
[2018-12-07 08:09] LABS: ALT 95 U/L (9-52); AST 184 U/L (14-36); Albumin 2.3 g/dL (3.5-5.0); Alkaline Phosphatase 98 U/L (38-126); Anion Gap 6 mmol/L; Blood Urea Nitrogen 19 mg/dL (7-17); Calcium 7.7 mg/dL (8.4-10.2); Carbon Dioxide 18 mmol/L (22-30); Chloride 114 mmol/L (98-107); Glucose 124 mg/dL (74-99); Potassium 3.4 mmol/L (3.5-5.1); Sodium 138 mmol/L (137-145); Total Bilirubin 0.4 mg/dL (0.2-1.3); Total Protein 5.7 g/dL (6.3-8.2)
[2018-12-07 08:13] LABS: Glucose,Whole Blood 77 mg/dL (75-99)
[2018-12-07] MEDS: ASPIRIN 81 MG PO SCH (08:50)
[2018-12-07] MEDS: SULFAMETHOX-TMP 800-160MG 1 EACH TAB PO SCH ×2 (08:50→21:04)
[2018-12-07] MEDS: CLOPIDOGREL 75 MG TAB PO SCH (08:50)
--- NOTE | 2018-12-07 14:12 | US ---
EXAMINATION TYPE: US venous doppler duplex LE DATE OF EXAM: 12/07/2018 1:46 PM COMPARISON: NONE CLINICAL HISTORY: coagulopathy. Patient with extensive vascular history, known PE, h/o DVT, h/o graft ing, right leg amputation above knee, and left leg amputation below knee, patient weighs 77lbs SIDE PERFORMED: Bilateral TECHNIQUE: The lower extremity deep venous system is examined utilizing real time linear array sonog neha with graded compression, doppler sonography and color-flow sonography. VESSELS IMAGED: External Iliac Vein (EIV) Common Femoral Vein Deep Femoral Vein Greater Saphenous Vein * Femoral Vein Popliteal Vein Small Saphenous Vein * Proximal Calf Veins (* superficial vessels) limited exam due to reasons stated above Right Leg: Limited study of venous system appears negative for DVT. Incidental note is made of a byp ass graft within the right lower extremity with no definite internal flow by ultrasound. Left Leg: Internal echoes within left EIV, CFV and popiteal vein that was mobile and not fully compr essible. Blood flow was seen, probable non occluding thrombus. IMPRESSION: 1. Findings are suggestive of nonoccluding thrombus DVT within the left external iliac vein, poplitea l and common femoral vein. Report called to the patient's nurse. 2. The arterial bypass graft within the right lower extremities incidentally noted. No definite flow seen by limited examination venous ultrasound. Correlate clinically.
[2018-12-07] MEDS: ZOLPIDEM 5 MG TAB PO PRN (21:08)
--- NOTE | 2018-12-07 22:08 | P.CONS ---
History of Present Illness - Reason for Consult Consult date: 12/07/18 PE, hypercoagulable state - History of Present Illness Ms Ruiz is a 48-year-old AAF initially seen in consult on 10/28/18. She had presented with a chief complaint of chest, abdominal pain and subjective fevers. She has a very complex history, including recurrent urinary tract infection, indwelling Joyce catheter, severe PVOD, history of right above-the- knee amputation, left [id number] of amputation, history of "sticky platelet syndrome" , diagnosed > [address] [facility] [place], multiple arterial and venous thrombosis, on anticoagulation > 10 years per the patient. She had been maintained on Lovenox for several years, and stated she had remained compliant without missing any doses. EF is 20% She was found to have progressive aortic thrombosis, new renal infarcts and thrombus in the left ventricle. As the pt claimed compliance with Lovenox, this was felt to be suspicious for treatment failure. She was transferred to the [facility] [place]. Per the pt she was changed to Coumadin, but had not been therapeutic since starting. She presented with acute onset of rt lower chest/RUQ/rt mid back pain , described as sharp and stabbing, associated with nausea. The pt stated she initially tried to work through it, but came to the ER due to progression. She also noted some increase in symptoms with inspiration, and associated SOB. CT thoracic aorta ( which also imaged pulmonary vasculature)showed new RLL PE , and stable aortic/and abdomino pelvic vascular occlusion. Coags were normal at presentation. She was started on anticoagulation with IV heparin. The pt is already on ASA/Plavix. Review of Systems Constitutional: Reports chronic pain, Reports fatigue Eyes: denies blurred vision, denies pain Ears: deny: decreased hearing, ear discharge, earache, tinnitus Ears, nose, mouth and throat: Reports headache, Denies sore throat Cardiovascular: Reports as per HPI, Reports chest pain, Reports dyspnea on exertion, Reports rapid heart beat, Reports shortness of breath Respiratory: Reports dyspnea, Reports pain on inspiration Gastrointestinal: Reports abdominal pain, Denies diarrhea, Denies nausea, Denies vomiting Genitourinary: Reports as per HPI, Reports dysuria, Reports urinary frequency Musculoskeletal: Reports as per HPI Integumentary: Denies pruritus, Denies rash Neurological: Reports headaches, Reports weakness Psychiatric: Reports as per HPI (chronic opioid use) Endocrine: Reports fatigue Hematologic/Lymphatic: Reports thrombophilia Past Medical History Past Medical History: Asthma, Heart Failure, CVA/TIA, Deep Vein Thrombosis (DVT) , Osteoarthritis (OA), Pulmonary Embolus (PE), Renal Disease Additional Past Medical History / Comment(s): sticky platelet syndrome, bronchitis, anx/depression, falls History of Any Multi-Drug Resistant Organisms: ESBL Year Discovered:: 10/15/18 ESBL MDRO Source:: Urine Past Surgical History: Cholecystectomy, Coronary Bypass/CABG Additional Past Surgical History / Comment(s): ltBKA, left lower leg, aortic bypass right leg, right leg fasciotomy.pt stated had another vascular sx after the fasciotomy at [facility] unclear as to exactly what was done Rt BKA Past Anesthesia/Blood Transfusion Reactions: No Reported Reaction Additional Past Anesthesia/Blood Transfusion Reaction / Comm: pt stated has had a blood transfusion in past-no reaction Past Psychological History: Anxiety, Depression Smoking Status: Former smoker Past Alcohol Use History: None Reported Past Drug Use History: None Reported - Past Family History Mother Additional Family Medical History / Comment(s): MS, legally blind, cataracts Father Additional Family Medical History / Comment(s): Was younger when he , car accident Medications and Allergies Home Medications Medication Instructions Recorded Confirmed Type Aspirin EC [Ecotrin Low Dose] 81 mg PO DAILY 10/26/18 12/06/18 History Clopidogrel Bisulfate [Plavix] 75 mg PO DAILY 12/06/18 12/06/18 History Warfarin [Coumadin] 3 mg PO DAILY 12/07/18 12/07/18 History Allergies Allergy/AdvReac Type Severity Reaction Status Date / Time ibuprofen Allergy Unknown Verified 12/06/18 22:09 trazodone Allergy Chest Pain Verified 12/06/18 22:09 Physical Exam Vitals: Vital Signs Temp Pulse Pulse Resp BP BP Pulse Ox 12/07/18 16:00 98.4 F 80 16 113/84 100 12/07/18 12:00 97.9 F 81 16 133/88 96 12/07/18 11:00 76 16 133/88 95 12/07/18 10:00 73 16 133/88 100 12/07/18 09:00 79 20 133/88 100 12/07/18 08:00 97.8 F 67 16 125/85 100 12/07/18 07:56 100 12/07/18 06:00 67 10 L 125/85 100 12/07/18 05:13 97.7 F 69 10 L 125/85 100 12/07/18 04:54 72 19 119/80 100 12/07/18 03:03 97.4 F L 70 70 18 144/95 125/85 100 12/07/18 01:12 65 18 141/87 100 12/06/18 23:00 71 16 120/77 100 12/06/18 21:38 77 22 12/06/18 21:30 98.4 F 99 20 125/84 Intake and Output 12/07/18 12/07/18 12/07/18 06:59 14:59 22:59 Intake Total 50 440 937.92 Output Total 200 550 175 Balance -150 -110 762.92 Intake: IV 50 497.92 Heparin Sod,Pork in 0.45% 97.92 NaCl 25,000 unit In 0.45 % NaCl 1 250ml.bag @ 18 UNITS/KG/HR 8.16 mls/hr IV .Q24H [facility] Rx#: [id number] Potassium Chloride 10 meq 50 400 In Water For Injection 1 100ml.bag @ 100 mls/hr IVPB Q1HR [facility] Rx#: [id number] Oral 440 440 Output: Urine 200 550 175 Other: Voiding Method Indwelling Catheter Indwelling Catheter Weight 35.2 kg 35.2 kg - Constitutional General appearance: no acute distress - EENT Eyes: EOMI, PERRLA ENT: hearing grossly normal, normal oropharynx - Neck Neck: no lymphadenopathy Thyroid: bilateral: normal size - Respiratory Respiratory: bilateral: CTA - Cardiovascular Rhythm: regular Heart sounds: normal: S1, S2 - Gastrointestinal General gastrointestinal: normal bowel sounds, soft - Integumentary Integumentary: normal - Neurologic Neurologic: CNII-XII intact - Musculoskeletal Rt AKA Lt BKA Skin thickening and chronic induration rt groin area Musculoskeletal: generalized weakness - Psychiatric Psychiatric: A&O x's 3, appropriate affect Results CBC & Chem 7: 12/06/18 22:30 12/07/18 19:42 Labs: Abnormal Lab Results - Last 24 Hours (Table) 12/06/18 12/06/18 12/06/18 Range/Units 22:30 22:30 23:20 RBC 3.55 L (3.80-5.40) m/uL Hgb 11.0 L (11.4-16.0) gm/dL APTT (22.0-30.0) sec Potassium 2.8 L (3.5-5.1) mmol/L Chloride 113 H (98-107) mmol/L Carbon Dioxide 21 L (22-30) mmol/L BUN 23 H (7-17) mg/dL Glucose 57 L (74-99) mg/dL Calcium 8.2 L (8.4-10.2) mg/dL AST 95 H (14-36) U/L ALT 82 H (9-52) U/L Total Protein 6.2 L (6.3-8.2) g/dL Albumin 2.5 L (3.5-5.0) g/dL Amylase 153 H (30-110) U/L Urine Appearance Turbid H (Clear) Urine Protein 1+ H (Negative) Urine Glucose (UA) 1+ H (Negative) Urine Blood Trace H (Negative) Urine Nitrite Positive H (Negative) Ur Leukocyte Esterase Large H (Negative) Urine RBC 6 H (0-5) /hpf Urine WBC 80 H (0-5) /hpf Urine WBC Clumps Many H (None) /hpf Ur Squamous Epith Cells 5 H (0-4) /hpf Calcium Oxalate Crystal Few H (None) /hpf Amorphous Sediment Occasional H (None) /hpf Urine Bacteria Many H (None) /hpf 12/07/18 12/07/18 Range/Units 07:15 07:15 RBC (3.80-5.40) m/uL Hgb (11.4-16.0) gm/dL APTT 75.3 H (22.0-30.0) sec Potassium 3.4 L (3.5-5.1) mmol/L Chloride 114 H (98-107) mmol/L Carbon Dioxide 18 L (22-30) mmol/L BUN 19 H (7-17) mg/dL Glucose 124 H (74-99) mg/dL Calcium 7.7 L (8.4-10.2) mg/dL AST 184 H (14-36) U/L ALT 95 H (9-52) U/L Total Protein 5.7 L (6.3-8.2) g/dL Albumin 2.3 L (3.5-5.0) g/dL Amylase (30-110) U/L Urine Appearance (Clear) Urine Protein (Negative) Urine Glucose (UA) (Negative) Urine Blood (Negative) Urine Nitrite (Negative) Ur Leukocyte Esterase (Negative) Urine RBC (0-5) /hpf Urine WBC (0-5) /hpf Urine WBC Clumps (None) /hpf Ur Squamous Epith Cells (0-4) /hpf Calcium Oxalate Crystal (None) /hpf Amorphous Sediment (None) /hpf Urine Bacteria (None) /hpf Microbiology - Last 24 Hours (Table) 12/06/18 23:20 Urine Culture - Preliminary Urine,Voided Chest x-ray: report reviewed CT scan - chest: report reviewed Assessment and Plan (1) Pulmonary embolism Narrative/Plan: The pt is presenting with a PE which is a new finding. She was not therapeutic on coumadin at presentation. She is appropriately on IV heparin. Continue ASA and Plavix. Based on the clinical picture at her prior admission, she appeared to have failed Lovenox. She states she was changed to coumadin, by her research and evaluation manager at the [facility], but has not been therapeutic. She claims she is on a regimen of 6 mg every alternate day, which is a very unusual schedule. Coumadin or one of the DOACs could thus be options for anticoagulation as an outpt, along with continued ASA/Plavix. Check LE dopplers for a new baseline Current Visit: Yes Status: Acute Code(s): I26.99 - OTHER PULMONARY EMBOLISM WITHOUT ACUTE COR PULMONALE SNOMED Code(s): 80432559 (2) Hypercoagulable state Narrative/Plan: The pt claims she was tested > 10 yrs ago and diagnosed with " sticky platelet syndrome". This is not a well defined phenomenon, and there is some controversy about its clinical significance. In any case the pt is on dual antiplatelet therapy already, but is still showing progressive thrombosis, despite full dose anticoagulation in addition. Details of her initial diagnosis and w/u are not available to us. She stated she was compliant with Lovenox, but did not have anti Xa testing here prior to her transfer. It is not known if this was done at the [facility] [place] [facility]. Thus it cannot be objectively proved , that she failed a therapeutic level of Lovenox. We will try to contact her Spanish Interpreter/Translator and Hem-Onc at the [facility] [place], to try to obtain details of prior hypercoagulable testing, as well their opinions, re outpt anticoagulation regimens going forward. Current Visit: Yes Status: Acute Code(s): D68.59 - OTHER PRIMARY THROMBOPHILIA SNOMED Code(s): 68283301 Plan: Defer to the admitting service and other consultants for management of her other medical problems
[2018-12-08] MEDS: HYDROmorphone 0.5 MG/0.5 ML SYRINGE IVP PRN ×8 (00:09→21:54)
[2018-12-08 04:52] LABS: Basophils % (A) 0 %; Eosinophils # (A) 0.1 k/uL (0-0.7); Eosinophils % (A) 3 %; HCT 28.3 % (34.0-46.0); Hypochromasia Marked; Lymphocytes # (A) 1.2 k/uL (1.0-4.8); Lymphocytes % (A) 28 %; MCH 30.9 pg (25.0-35.0); MCHC 30.1 g/dL (31.0-37.0); MCV 102.9 fL (80.0-100.0); Macrocytosis Slight; Mean Platelet Volume 6.9; Monocytes # (A) 0.2 k/uL (0-1.0); Monocytes % (A) 6 %; Neutrophils # (A) 2.6 k/uL (1.3-7.7); Neutrophils % (A) 61 %; Platelet Count 310 k/uL (150-450); RBC 2.75 m/uL (3.80-5.40); RDW 15.5 % (11.5-15.5); WBC 4.3 k/uL (3.8-10.6)
[2018-12-08 04:57] LABS: HGB 8.5 gm/dL (11.4-16.0)
[2018-12-08 05:19] LABS: Calcium 8.2 mg/dL (8.4-10.2); Potassium 4.9 mmol/L (3.5-5.1)
[2018-12-08 07:07] LABS: Glucose,Whole Blood 88 mg/dL (75-99)
[2018-12-08] MEDS: HEPARIN SOD,PORK IN 0.45% NACL 25,000 UNIT in 0.45% NACL 1 250ML.BAG IV SCH (08:51)
[2018-12-08] MEDS: SULFAMETHOX-TMP 800-160MG 1 EACH TAB PO SCH ×2 (08:52→21:51)
[2018-12-08] MEDS: CLOPIDOGREL 75 MG TAB PO SCH (08:52)
[2018-12-08] MEDS: ASPIRIN 81 MG PO SCH (08:52)
--- NOTE | 2018-12-08 14:46 | P.PN ---
Subjective Progress Note Date: 12/08/18 The patient is a 56 yo F with a PMH of sticky platelet syndrome, multiple thromboembolic events, and systolic CHF (EF 20%) presented to the Ed due to chest pain and SOB. 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 There were also patchy areas of decreased cortical enhancement of the left kidney that were worse from the previous computed tomography scan. Patient was started on a heparin infusion and hematology was consulted. The patient was seen and examined at the bedside. She notes continued mild back and left lower extremity pain. She notes her chest pain and SOB has improved since admission. She denied fever, chills, cough, abdominal pain, nausea, vomiting, or dysuria. Objective - Vital Signs Vital signs: Vital Signs Temp 97 F L 12/08/18 12:00 Pulse 81 12/08/18 12:00 Resp 21 12/08/18 12:00 BP 138/87 12/08/18 12:00 Pulse Ox 100 12/08/18 12:00 Intake & Output 12/07/18 12/08/18 12/08/18 18:59 06:59 18:59 Intake Total 1377.92 1072.696 393.304 Output Total 725 650 600 Balance 652.92 422.696 -206.696 Weight 35.2 kg 40.1 kg Intake: IV 497.92 120 136 0.9 120 80 Heparin Sod,Pork in 0.45% 97.92 56 NaCl 25,000 unit In 0.45 % NaCl 1 250ml.bag @ 18 UNITS/KG/HR 8.16 mls/hr IV .Q24H [facility] Rx#: [id number] Potassium Chloride 10 meq 400 In Water For Injection 1 100ml.bag @ 100 mls/hr IVPB Q1HR [facility] Rx#: [id number] Intake, IV Titration 232.696 17.304 Amount Heparin Sod,Pork in 0.45% 232.696 17.304 NaCl 25,000 unit In 0.45 % NaCl 1 250ml.bag @ 18 UNITS/KG/HR 8.16 mls/hr IV .Q24H [facility] Rx#: [id number] Oral 880 720 240 Output: Urine 725 650 600 Other: Voiding Method Indwelling Catheter Indwelling Catheter Indwelling Catheter - Exam General: Non-toxic, in no acute distress, appears older than age, underweight HEENT: NC/AT, anicteric sclerae, moist conjunctiva, no lid-lag, PERRLA Cardiovascular: S1/S2 wnl, no murmurs, rubs, or gallops Lungs: Clear to auscultation, normal respiratory effort, no accessory muscle use Abdominal: Soft, non-tender, non-distended, no guarding, rebound, or rigidity Skin: Warm, dry Extremities: Left BKA, right AKA Psychiatric: Alert and oriented to person, place and time, appropriate affect Neuro: CN II-XII grossly intact, Strength 4/5 in all 4 extremities, Speech intact, Sensation to light touch grossly intact throughout - Labs CBC & Chem 7: 12/08/18 04:23 12/08/18 04:23 Labs: Abnormal Lab Results - Last 24 Hours (Table) 12/08/18 12/08/18 12/08/18 Range/Units 04:23 04:23 04:23 RBC 2.75 L (3.80-5.40) m/uL Hgb 8.5 L D (11.4-16.0) gm/dL Hct 28.3 L (34.0-46.0) % MCV 102.9 H (80.0-100.0) fL MCHC 30.1 L (31.0-37.0) g/dL APTT 46.5 H (22.0-30.0) sec Chloride 113 H (98-107) mmol/L Creatinine 1.29 H (0.52-1.04) mg/dL Glucose 69 L (74-99) mg/dL Calcium 8.2 L (8.4-10.2) mg/dL 12/08/18 Range/Units 13:03 RBC (3.80-5.40) m/uL Hgb (11.4-16.0) gm/dL Hct (34.0-46.0) % MCV (80.0-100.0) fL MCHC (31.0-37.0) g/dL APTT 60.4 H (22.0-30.0) sec Chloride (98-107) mmol/L Creatinine (0.52-1.04) mg/dL Glucose (74-99) mg/dL Calcium (8.4-10.2) mg/dL Microbiology - Last 24 Hours (Table) 12/06/18 23:20 Urine Culture - Preliminary Urine,Voided Gram Neg Bacilli Assessment and Plan Plan: Acute right lower lobe pulmonary embolism in the setting of sticky platelet syndrome -Hematology recommendations appreciated -Patient has had multiple thromboembolic events, as evident by the CT angiogram. The patient notes she previously failed Lovenox and has been on Coumadin for 1 month and hasn't been therapeutic. -We'll continue with heparin infusion for now while awaiting further hematology input -Lower extremity duplex appreciated Macrocytic anemia, drop in hemoglobin from 11 to 8.5 -We will monitor CBC every 12 hourly for now -Obtain guaiac -Patient hasn't had any bowel movements since admission -Hematology aware of the drop in hemoglobin -We'll continue with heparin infusion for now Chronic systolic CHF -Continue with home meds UTI with history of ESBL -Continue with Bactrim Severe protein calorie malnutrition -Dietary referral DVT//GI prophylaxis -Heparin infusion -No indication for GI prophylaxis Discussed with: Patient Anticipated discharge date: 12/11/[address]: Home A total of 40 minutes was spent on the care of this complex patient more than 50 % of the time was spent in counseling and care coordination.
[2018-12-08 15:28] LABS: HGB 9.1 gm/dL (11.4-16.0); Hypochromasia Marked; MCH 30.4 pg (25.0-35.0); MCHC 29.4 g/dL (31.0-37.0); MCV 103.5 fL (80.0-100.0); Macrocytosis Moderate; Mean Platelet Volume 6.9; Platelet Count 314 k/uL (150-450); RBC 2.99 m/uL (3.80-5.40); RDW 15.6 % (11.5-15.5); WBC 5.3 k/uL (3.8-10.6)
--- NOTE | 2018-12-08 16:53 | P.PN ---
Subjective Progress Note Date: 12/08/18 Principal diagnosis: PE, DVT Pt seen in f/u, she is in chair eating lunch. No B[place], chest pain better, no pleuritic pain, bleeding, BLE discomfort and swelling stable. Objective - Vital Signs Vital signs: Vital Signs Temp 97 F L 12/08/18 12:00 Pulse 81 12/08/18 12:00 Resp 21 12/08/18 12:00 BP 138/87 12/08/18 12:00 Pulse Ox 100 12/08/18 12:00 Intake & Output 12/07/18 12/08/18 12/08/18 18:59 06:59 18:59 Intake Total 1377.92 1072.696 393.304 Output Total 725 650 600 Balance 652.92 422.696 -206.696 Weight 35.2 kg 40.1 kg Intake: IV 497.92 120 136 0.9 120 80 Heparin Sod,Pork in 0.45% 97.92 56 NaCl 25,000 unit In 0.45 % NaCl 1 250ml.bag @ 18 UNITS/KG/HR 8.16 mls/hr IV .Q24H [facility] Rx#: [id number] Potassium Chloride 10 meq 400 In Water For Injection 1 100ml.bag @ 100 mls/hr IVPB Q1HR [facility] Rx#: [id number] Intake, IV Titration 232.696 17.304 Amount Heparin Sod,Pork in 0.45% 232.696 17.304 NaCl 25,000 unit In 0.45 % NaCl 1 250ml.bag @ 18 UNITS/KG/HR 8.16 mls/hr IV .Q24H [facility] Rx#: [id number] Oral 880 720 240 Output: Urine 725 650 600 Other: Voiding Method Indwelling Catheter Indwelling Catheter Indwelling Catheter - Constitutional General appearance: Present: cooperative, no acute distress, thin - EENT Eyes: Present: anicteric sclerae, EOMI - Respiratory Details: respirations even and unlabored - Integumentary Integumentary: Present: normal - Neurologic Neurologic: Present: CNII-XII intact - Musculoskeletal Musculoskeletal: Present: strength equal bilaterally - Psychiatric Psychiatric: Present: A&O x's 3, appropriate affect, intact judgment & insight - Labs CBC & Chem 7: 12/08/18 15:11 12/08/18 04:23 Labs: Abnormal Lab Results - Last 24 Hours (Table) 12/08/18 12/08/18 12/08/18 Range/Units 04:23 04:23 04:23 RBC 2.75 L (3.80-5.40) m/uL Hgb 8.5 L D (11.4-16.0) gm/dL Hct 28.3 L (34.0-46.0) % MCV 102.9 H (80.0-100.0) fL MCHC 30.1 L (31.0-37.0) g/dL RDW (11.5-15.5) % APTT 46.5 H (22.0-30.0) sec Chloride 113 H (98-107) mmol/L Creatinine 1.29 H (0.52-1.04) mg/dL Glucose 69 L (74-99) mg/dL Calcium 8.2 L (8.4-10.2) mg/dL 12/08/18 12/08/18 Range/Units 13:03 15:11 RBC 2.99 L (3.80-5.40) m/uL Hgb 9.1 L (11.4-16.0) gm/dL Hct 31.0 L (34.0-46.0) % MCV 103.5 H (80.0-100.0) fL MCHC 29.4 L (31.0-37.0) g/dL RDW 15.6 H (11.5-15.5) % APTT 60.4 H (22.0-30.0) sec Chloride (98-107) mmol/L Creatinine (0.52-1.04) mg/dL Glucose (74-99) mg/dL Calcium (8.4-10.2) mg/dL Microbiology - Last 24 Hours (Table) 12/06/18 23:20 Urine Culture - Preliminary Urine,Voided Gram Neg Bacilli - Imaging and Cardiology doppler report reviewed Assessment and Plan (1) DVT (deep venous thrombosis) Current Visit: Yes Status: Acute Priority: High Code(s): I82.409 - ACUTE EMBOLISM AND THOMBOS UNSP DEEP VN UNSP LOWER EXTREMITY SNOMED Code(s): 571377116 (2) Pulmonary embolism Current Visit: Yes Status: Acute Priority: High Code(s): I26.99 - OTHER PULMONARY EMBOLISM WITHOUT ACUTE COR PULMONALE SNOMED Code(s): 18451166 Plan: Reviewed doppler and CT results with pt. Discussed case with Radiology Nurse- entire pulmonary vasculature was visualized in thoracic CT and no other PE noted. 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 The dose of coumadin prescribed (6mg QOD) is unusual so, Dr. Reaves wants to be clear if there are any potential problems with anticoagulation. Prior to starting oral Will send Rx for NOAC to see if adequate insurance coverage.
[2018-12-08] MEDS: ZOLPIDEM 5 MG TAB PO PRN (21:51)
[2018-12-09] MEDS: HYDROmorphone 0.5 MG/0.5 ML SYRINGE IVP PRN ×6 (02:01→21:04)
[2018-12-09] MEDS: HEPARIN SOD,PORK IN 0.45% NACL 25,000 UNIT in 0.45% NACL 1 250ML.BAG IV SCH (05:07)
[2018-12-09 05:50] LABS: Basophils % (A) 0 %; Eosinophils # (A) 0.2 k/uL (0-0.7); Eosinophils % (A) 4 %; HCT 30.1 % (34.0-46.0); HGB 8.9 gm/dL (11.4-16.0); Hypochromasia Marked; Lymphocytes # (A) 1.2 k/uL (1.0-4.8); Lymphocytes % (A) 25 %; MCH 30.5 pg (25.0-35.0); MCHC 29.6 g/dL (31.0-37.0); MCV 103.1 fL (80.0-100.0); Macrocytosis Moderate; Mean Platelet Volume 6.9; Monocytes # (A) 0.2 k/uL (0-1.0); Monocytes % (A) 4 %; Neutrophils # (A) 3.1 k/uL (1.3-7.7); Neutrophils % (A) 67 %; Platelet Count 321 k/uL (150-450); RBC 2.92 m/uL (3.80-5.40); RDW 15.5 % (11.5-15.5); WBC 4.7 k/uL (3.8-10.6)
[2018-12-09 06:05] LABS: Calcium 8.5 mg/dL (8.4-10.2)
[2018-12-09] MEDS ORDERED: SODIUM POLYSTYRENE SULFONATE 15 GM/60 ML BOTTLE PO STA (07:38)
[2018-12-09] MEDS ORDERED: ALBUTEROL NEBULIZED 2.5 MG/3 ML INHALATION STA (07:39)
[2018-12-09] MEDS ORDERED: CALCIUM GLUCONATE 1,000 MG in SODIUM CHLORIDE 0.9% 100 ML IVPB ONE (08:00)
[2018-12-09] MEDS: SULFAMETHOX-TMP 800-160MG 1 EACH TAB PO SCH ×2 (08:59→21:04)
[2018-12-09] MEDS: ASPIRIN 81 MG PO SCH (08:59)
[2018-12-09] MEDS: CLOPIDOGREL 75 MG TAB PO SCH (08:59)
[2018-12-09] MEDS: traMADol 50 MG TAB PO SCH ×3 (11:22→22:08)
--- NOTE | 2018-12-09 11:38 | P.PN ---
Subjective Progress Note Date: 12/09/18 The patient is a 56 yo F with a PMH of sticky platelet syndrome, multiple thromboembolic events, and systolic CHF (EF 20%) presented to the Ed due to chest pain and SOB. 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 There were also patchy areas of decreased cortical enhancement of the left kidney that were worse from the previous computed tomography scan. Patient was started on a heparin infusion and hematology was consulted. The patient was seen and examined at the bedside. She endorsed chronic LLE and back pain which is at times 10/10. The patient's chest pain and shortness of breath have improved. She denied abdominal pain, nausea, vomiting, diarrhea, fever, or chills. Objective - Vital Signs Vital signs: Vital Signs Temp 97 F L 12/09/18 08:00 Pulse 84 12/09/18 10:00 Resp 18 12/09/18 10:00 BP 145/78 12/09/18 08:00 Pulse Ox 96 12/09/18 08:00 Intake & Output 12/08/18 12/09/18 12/09/18 18:59 06:59 18:59 Intake Total 864.825 4688 188 Output Total 850 1050 300 Balance -388.696 70 -112 Weight 38.8 kg Intake: IV 204 120 68 0.9 120 120 40 Heparin Sod,Pork in 0.45% 84 28 NaCl 25,000 unit In 0.45 % NaCl 1 250ml.bag @ 18 UNITS/KG/HR 8.16 mls/hr IV .Q24H [facility] Rx#: [id number] Intake, IV Titration 17.304 Amount Heparin Sod,Pork in 0.45% 17.304 NaCl 25,000 unit In 0.45 % NaCl 1 250ml.bag @ 18 UNITS/KG/HR 8.16 mls/hr IV .Q24H [facility] Rx#: [id number] Oral 240 1000 120 Output: Urine 850 1050 300 Other: Voiding Method Indwelling Catheter Indwelling Catheter - Exam General: Non-toxic, in no acute distress, appears older than age, underweight HEENT: NC/AT, anicteric sclerae, moist conjunctiva, no lid-lag, PERRLA Cardiovascular: S1/S2 wnl, no murmurs, rubs, or gallops Lungs: Clear to auscultation, normal respiratory effort, no accessory muscle use Abdominal: Soft, non-tender, non-distended, no guarding, rebound, or rigidity Skin: Warm, dry Extremities: Left BKA, right AKA Psychiatric: Alert and oriented to person, place and time, appropriate affect Neuro: CN II-XII grossly intact, Strength 4/5 in all 4 extremities, Speech intact, Sensation to light touch grossly intact throughout - Labs CBC & Chem 7: 12/09/18 05:19 12/09/18 05:19 Labs: Abnormal Lab Results - Last 24 Hours (Table) 12/08/18 12/08/18 12/09/18 Range/Units 13:03 15:11 05:19 RBC 2.99 L 2.92 L (3.80-5.40) m/uL Hgb 9.1 L 8.9 L (11.4-16.0) gm/dL Hct 31.0 L 30.1 L (34.0-46.0) % MCV 103.5 H 103.1 H (80.0-100.0) fL MCHC 29.4 L 29.6 L (31.0-37.0) g/dL RDW 15.6 H (11.5-15.5) % APTT 60.4 H (22.0-30.0) sec Sodium (137-145) mmol/L Potassium (3.5-5.1) mmol/L BUN (7-17) mg/dL Creatinine (0.52-1.04) mg/dL Glucose (74-99) mg/dL 12/09/18 12/09/18 Range/Units 05:19 05:19 RBC (3.80-5.40) m/uL Hgb (11.4-16.0) gm/dL Hct (34.0-46.0) % MCV (80.0-100.0) fL MCHC (31.0-37.0) g/dL RDW (11.5-15.5) % APTT 61.5 H (22.0-30.0) sec Sodium 133 L (137-145) mmol/L Potassium 6.0 H (3.5-5.1) mmol/L BUN 19 H (7-17) mg/dL Creatinine 1.15 H (0.52-1.04) mg/dL Glucose 69 L (74-99) mg/dL Microbiology - Last 24 Hours (Table) 12/06/18 23:20 Urine Culture - Preliminary Urine,Voided Enterobacter cloacae Assessment and Plan Plan: Acute right lower lobe pulmonary embolism in the setting of sticky platelet syndrome -Hematology recommendations appreciated -Patient has had multiple thromboembolic events, as evident by the CT angiogram. The patient notes she previously failed Lovenox and has been on Coumadin for 1 month and hasn't been therapeutic. -We'll continue with heparin infusion for now while awaiting further hematology input -Lower extremity duplex appreciated Macrocytic anemia -Monitor for any signs of bleeding -Hematology aware Hypokalemia -Calcium gluconate and Kayexalate administered -Will monitor Chronic systolic CHF -Patient notes that she was only recently diagnosed with the systolic CHF and was told that she would need a workup for the cardiomyopathy -On previous admission, the patient's echo revealed EF of 20% with an LV thrombus. The patient was ultimately transferred to [facility] [place]. -Continue with home meds UTI with history of ESBL -Continue with Bactrim Severe protein calorie malnutrition -Dietary referral DVT//GI prophylaxis -Heparin infusion -No indication for GI prophylaxis Discussed with: Patient Anticipated discharge date: 12/11/[address]: Home A total of 40 minutes was spent on the care of this complex patient more than 50 % of the time was spent in counseling and care coordination.
--- NOTE | 2018-12-09 12:58 | CDI ---
UTI related to chronic renteria cath Documentation Clarification Form Date: 12/09/2018 12:39:49 PM From: Angela Sams RN, CCDS Admit Date: 12/07/2018 1:56:00 AM Patient Name: Nel Linares Visit Number: [id number] ATTENTION: The Clinical Documentation Specialists (CDI) and [facility] Coding Staff appreciate your assistance in clarifying documentation. Please respond to the clarification below the line at the bottom and electronically sign. The CDI & [facility] Coding staff will review the response and follow-up if needed. Please note: Queries are made part of the Legal Health Record. If you have any questions, please contact the author of this message via ITS. Dr. Porsha Savage A diagnosis of UTI has been documented in the H&P in a patient w/ a chronic IDC and requires further specificity. History/Risk Factors: Per documentation in the ER this patient was admitted with an indwelling Renteria catheter Clinical Indicators: 12/07/2018 H&P:"Patient also reports lower abdominal pain with foul-smelling urine and seeing cloudy urine in her urinary catheter tube. She reports that due to urinary retention she has been having this catheter for over a month now since her last discharged from [facility] in [facility]. Plan: Possible urinary tract infection with chronic indwelling catheter, history of ESBL Urinalysis: turbid, +1 protein, + glucose, + nitrate, large leukocyte esterase, 6 RBC, many WBC clumps, 5 squamous epithelial cells, few calcium oxalate crystal , occasional amphorous, many urine bacteria Urine culture: + enterobacter cloacae Treatment: Bactrim DS 1 PO BID In your professional opinion, can you please clarify the etiology of the UTI, if known? UTI is related to Chronic Renteria catheter UTI not related to catheter Other condition, please specify Unable to determine If an infective organism is present, please specify cause and effect relationship if applicable. (Last Revision: February 2018) UTI related to chronic renteria cath MTDD
--- NOTE | 2018-12-09 15:02 | P.PN ---
Subjective Progress Note Date: 12/09/18 Principal diagnosis: PE, DVT Pt seen in f/u, she is ok, eating fair, no bleeding to report Objective - Vital Signs Vital signs: Vital Signs Temp 97 F L 12/09/18 08:00 Pulse 84 12/09/18 10:00 Resp 18 12/09/18 10:00 BP 145/78 12/09/18 08:00 Pulse Ox 96 12/09/18 08:00 Intake & Output 12/08/18 12/09/18 12/09/18 18:59 06:59 18:59 Intake Total 428.744 7928 188 Output Total 850 1050 300 Balance -388.696 70 -112 Weight 38.8 kg 38.8 kg Intake: IV 204 120 68 0.9 120 120 40 Heparin Sod,Pork in 0.45% 84 28 NaCl 25,000 unit In 0.45 % NaCl 1 250ml.bag @ 18 UNITS/KG/HR 8.16 mls/hr IV .Q24H [facility] Rx#: [id number] Intake, IV Titration 17.304 Amount Heparin Sod,Pork in 0.45% 17.304 NaCl 25,000 unit In 0.45 % NaCl 1 250ml.bag @ 18 UNITS/KG/HR 8.16 mls/hr IV .Q24H [facility] Rx#: [id number] Oral 240 1000 120 Output: Urine 850 1050 300 Other: Voiding Method Indwelling Catheter Indwelling Catheter - Exam A&O x4, respirations even and unlabored, mild distress r/t pain, BLE amputated limbs show no progressive swelling, stumps warm - Constitutional General appearance: Present: cooperative, mild distress, thin - EENT Eyes: Present: anicteric sclerae, EOMI - Labs CBC & Chem 7: 12/09/18 05:19 12/09/18 05:19 Labs: Abnormal Lab Results - Last 24 Hours (Table) 12/08/18 12/09/18 12/09/18 Range/Units 15:11 05:19 05:19 RBC 2.99 L 2.92 L (3.80-5.40) m/uL Hgb 9.1 L 8.9 L (11.4-16.0) gm/dL Hct 31.0 L 30.1 L (34.0-46.0) % MCV 103.5 H 103.1 H (80.0-100.0) fL MCHC 29.4 L 29.6 L (31.0-37.0) g/dL RDW 15.6 H (11.5-15.5) % APTT (22.0-30.0) sec Sodium 133 L (137-145) mmol/L Potassium 6.0 H (3.5-5.1) mmol/L BUN 19 H (7-17) mg/dL Creatinine 1.15 H (0.52-1.04) mg/dL Glucose 69 L (74-99) mg/dL 12/09/18 Range/Units 05:19 RBC (3.80-5.40) m/uL Hgb (11.4-16.0) gm/dL Hct (34.0-46.0) % MCV (80.0-100.0) fL MCHC (31.0-37.0) g/dL RDW (11.5-15.5) % APTT 61.5 H (22.0-30.0) sec Sodium (137-145) mmol/L Potassium (3.5-5.1) mmol/L BUN (7-17) mg/dL Creatinine (0.52-1.04) mg/dL Glucose (74-99) mg/dL Microbiology - Last 24 Hours (Table) 12/06/18 23:20 Urine Culture - Preliminary Urine,Voided Enterobacter cloacae Assessment and Plan (1) DVT (deep venous thrombosis) Current Visit: Yes Status: Acute Priority: High Code(s): I82.409 - ACUTE EMBOLISM AND THOMBOS UNSP DEEP VN UNSP LOWER EXTREMITY SNOMED Code(s): 866942559 (2) Pulmonary embolism Current Visit: Yes Status: Acute Priority: High Code(s): I26.99 - OTHER PULMONARY EMBOLISM WITHOUT ACUTE COR PULMONALE SNOMED Code(s): 11133908 Plan: Clarified with case Mgmt, xarelto is covered medication with $4 copay, pt states able to afford. Started pack prescribed. 1st dose xarelto to be given with dinner heparin drip scheduled to be stooped at time of administration
[2018-12-09] MEDS: RIVAROXABAN 15 MG TAB PO SCH (18:12)
[2018-12-09] MEDS: ZOLPIDEM 5 MG TAB PO PRN (22:08)
[2018-12-10] MEDS: HYDROmorphone 0.5 MG/0.5 ML SYRINGE IVP PRN ×7 (00:56→21:52)
[2018-12-10 06:24] LABS: INR 1.1 (<1.2); Partial Thromboplastin Time 30.6 sec (22.0-30.0); Prothrombin Time 11.3 sec (9.0-12.0)
[2018-12-10 06:36] LABS: Calcium 8.9 mg/dL (8.4-10.2); Potassium 5.5 mmol/L (3.5-5.1)
[2018-12-10 06:48] LABS: Basophils % (A) 1 %; Eosinophils # (A) 0.2 k/uL (0-0.7); Eosinophils % (A) 4 %; HCT 29.6 % (34.0-46.0); HGB 8.9 gm/dL (11.4-16.0); Hypochromasia Marked; Lymphocytes # (A) 1.1 k/uL (1.0-4.8); Lymphocytes % (A) 25 %; MCH 31.3 pg (25.0-35.0); MCHC 30.2 g/dL (31.0-37.0); MCV 103.7 fL (80.0-100.0); Macrocytosis Moderate; Mean Platelet Volume 6.6; Monocytes # (A) 0.2 k/uL (0-1.0); Monocytes % (A) 5 %; Neutrophils # (A) 2.9 k/uL (1.3-7.7); Neutrophils % (A) 65 %; Platelet Count 308 k/uL (150-450); RBC 2.85 m/uL (3.80-5.40); RDW 15.4 % (11.5-15.5); WBC 4.5 k/uL (3.8-10.6)
[2018-12-10 06:55] LABS: Glucose,Whole Blood 57 mg/dL (75-99)
--- NOTE | 2018-12-10 07:06 | P.CRDCN ---
History of Present Illness Consult date: 12/10/18 Chief complaint: Chest pain and shortness of breath History of present illness: This is a 48-year-old female patient with a a very complex past medical history presented to the hospital complaining of chest discomfort as well as shortness of breath. 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 The patient was on dual antiplatelet therapy along with Coumadin. We have seen the patient as a consult in October 2018 for further evaluation off abnormal echocardiogram showing possible left ventricular filling defects. At that point a limited echocardiogram was performed and showed severe cardiomyopathy with EF of 20% and also didn't show significant thrombus in the left ventricle. At that point the patient also was seen by the hematology oncology service. The decision was made to transfer the patient to [facility] where she was followed in the past by a miter sawyer as well as oncologist. She was discharged from here on dual antiplatelet therapy along with Lovenox. According to her, the Lovenox was changed to Coumadin at [facility]. The patient was in her usual state of health until yesterday when she was visiting her sister and at that point she suddenly developed an episode of chest discomfort and shortness of breath. The patient presented to the emergency room. She underwent a computed tomography scan of the thoracic aorta and pulmonary vasculature and that revealed complete occlusion of the infrarenal aorta and beside that revealed right lower lobe PE which seems to be no. Please note that the patient INR was subtherapeutic when she presented to the hospital this time with a chest pain and shortness of breath. The patient was seen and evaluated by the hematology service again. They recommended the patient to be started on one of the noval anticoagulation agents. Currently the patient is on aspirin, Plavix, and she is on Xarelto. The patient stated that her symptoms of chest pain and discomfort as well as shortness of breath are slightly better. Hemodynamically she continues to be stable. She is in normal sinus mechanism. Past Medical History Past Medical History: Asthma, Heart Failure, CVA/TIA, Deep Vein Thrombosis (DVT) , Osteoarthritis (OA), Pulmonary Embolus (PE), Renal Disease Additional Past Medical History / Comment(s): sticky platelet syndrome, bronchitis, anx/depression, falls History of Any Multi-Drug Resistant Organisms: ESBL Date of last positivie culture/infection: 10/15/18 ESBL MDRO Source:: Urine Past Surgical History: Cholecystectomy, Coronary Bypass/CABG Additional Past Surgical History / Comment(s): ltBKA, left lower leg, aortic bypass right leg, right leg fasciotomy.pt stated had another vascular sx after the fasciotomy at [facility] unclear as to exactly what was done Rt BKA Past Anesthesia/Blood Transfusion Reactions: No Reported Reaction Additional Past Anesthesia/Blood Transfusion Reaction / Comment(s): pt stated has had a blood transfusion in past-no reaction Past Psychological History: Anxiety, Depression Smoking Status: Former smoker Past Alcohol Use History: None Reported Past Drug Use History: None Reported - Past Family History Mother Additional Family Medical History / Comment(s): MS, legally blind, cataracts Father Additional Family Medical History / Comment(s): Was younger when he , car accident Medications and Allergies Home Medications Medication Instructions Recorded Confirmed Type Aspirin EC [Ecotrin Low Dose] 81 mg PO DAILY 10/26/18 12/06/18 History Clopidogrel Bisulfate [Plavix] 75 mg PO DAILY 12/06/18 12/06/18 History Rivaroxaban [Xarelto Starter Pack] 1 each PO DIRECTED #1 pkg 12/09/18 Rx Allergies Allergy/AdvReac Type Severity Reaction Status Date / Time ibuprofen Allergy Unknown Verified 12/06/18 22:09 trazodone Allergy Chest Pain Verified 12/06/18 22:09 Physical Exam Vitals: Vital Signs Temp Pulse Resp BP Pulse Ox 12/10/18 04:00 98.4 F 86 95 H 139/96 94 L 12/10/18 00:00 98.2 F 89 18 133/91 94 L 12/09/18 20:00 98.4 F 81 16 132/87 94 L 12/09/18 18:00 81 17 132/87 12/09/18 16:00 97 F L 94 21 123/84 98 12/09/18 14:00 90 15 12/09/18 12:00 97 F L 87 11 L 132/84 98 12/09/18 10:00 84 18 12/09/18 09:00 82 12 12/09/18 08:00 97 F L 78 17 145/78 96 12/09/18 07:00 96 14 Intake and Output 12/09/18 12/09/18 12/10/18 14:59 22:59 06:59 Intake Total 496 348 80 Output Total 900 900 600 Balance -120 -512 -517 Intake: IV 136 108 80 0.9 80 80 80 Heparin Sod,Pork in 0.45% 56 28 NaCl 25,000 unit In 0.45 % NaCl 1 250ml.bag @ 18 UNITS/KG/HR 8.16 mls/hr IV .Q24H [facility] Rx#: [id number] Oral 360 240 Output: Urine 900 900 600 Other: Voiding Method Indwelling Catheter Indwelling Catheter Indwelling Catheter Weight 38.8 kg 40.7 kg - Constitutional General appearance: no acute distress - Respiratory Respiratory: bilateral: diminished - Cardiovascular Rhythm: regular Heart sounds: normal: S1, S2 Results 12/09/18 05:19 12/10/18 06:01 Coagulation 12/10/18 Range/Units 06:01 PT 11.3 (9.0-12.0) sec APTT 30.6 H (22.0-30.0) sec Comprehensive Metabolic Panel 12/10/18 Range/Units 06:01 Sodium 132 L (137-145) mmol/L Potassium 5.5 H (3.5-5.1) mmol/L Chloride 101 (98-107) mmol/L Carbon Dioxide 24 (22-30) mmol/L BUN 21 H (7-17) mg/dL Creatinine 1.18 H (0.52-1.04) mg/dL Glucose 59 L (74-99) mg/dL Calcium 8.9 (8.4-10.2) mg/dL Current Medications Generic Name Dose Route Start Last Admin Trade Name Freq PRN Reason Stop Dose Admin Aspirin 81 mg 12/07/18 09:00 12/09/18 08:59 Aspirin PO 81 mg DAILY [facility] Administration Clopidogrel Bisulfate 75 mg 12/07/18 09:00 12/09/18 08:59 Plavix PO 75 mg DAILY [facility] Administration Hydromorphone HCl 1 mg 12/07/18 01:56 12/10/18 04:15 Dilaudid IVP 1 mg Q3HR PRN Administration Moderate Pain Miscellaneous Information 1 each 12/07/18 01:18 Potassium Per Protocol MISCELLANE DAILY PRN Per Protocol Protocol Naloxone HCl 0.2 mg 12/07/18 01:56 Narcan IV Q2M PRN Opioid Reversal Rivaroxaban 15 mg 12/09/18 17:30 12/09/18 18:12 Xarelto PO 15 mg BID-W/MEALS [facility] Administration Tramadol HCl 50 mg 12/09/18 11:30 12/09/18 22:08 Ultram PO 50 mg TID [facility] Administration Trimethoprim/Sulfamethoxazole 1 each 12/07/18 09:00 12/09/18 21:04 Bactrim Ds PO 1 each BID [facility] Administration Zolpidem Tartrate 5 mg 12/07/18 18:17 12/09/18 22:08 Ambien PO 5 mg HS PRN Administration Insomnia Intake and Output 12/09/18 12/09/18 12/10/18 14:59 22:59 06:59 Intake Total 496 348 80 Output Total 900 900 600 Balance -404 -655 -520 Intake: IV 136 108 80 0.9 80 80 80 Heparin Sod,Pork in 0.45% 56 28 NaCl 25,000 unit In 0.45 % NaCl 1 250ml.bag @ 18 UNITS/KG/HR 8.16 mls/hr IV .Q24H [facility] Rx#: [id number] Oral 360 240 Output: Urine 900 900 600 Other: Voiding Method Indwelling Catheter Indwelling Catheter Indwelling Catheter Weight 38.8 kg 40.7 kg Patient Weight 12/10/18 06:59 Weight 40.7 kg 12/09/18 05:19 12/10/18 06:01 Assessment and Plan Assessment: Assessment #1 new right lower lobe pulmonary embolism #2 history of recurrent PE. #3 severe cardiomyopathy #4 history of left ventricular thrombus #5 sticky platelet syndrome #6 severe peripheral vascular disease #7 chronic kidney disease #8 multiple comorbid conditions Plan #1 continue the current medical regimen including dual antiplatelet therapy as well as Xarelto #2 an echocardiogram to assess for any residual thrombus in the left ventricle #3 follow-up with the patient. Thank you for allowing us participate in her care
[2018-12-10 07:12] LABS: Glucose,Whole Blood 104 mg/dL (75-99)
[2018-12-10] MEDS: traMADol 50 MG TAB PO SCH ×3 (08:53→21:51)
[2018-12-10] MEDS: CLOPIDOGREL 75 MG TAB PO SCH (08:53)
[2018-12-10] MEDS: SULFAMETHOX-TMP 800-160MG 1 EACH TAB PO SCH ×2 (08:53→21:51)
[2018-12-10] MEDS: ASPIRIN 81 MG PO SCH (08:54)
[2018-12-10] MEDS: RIVAROXABAN 15 MG TAB PO SCH ×2 (08:54→17:18)
[2018-12-10] MEDS ORDERED: SODIUM POLYSTYRENE SULFONATE 15 GM/60 ML BOTTLE PO STA ×2 (14:05→14:11)
--- NOTE | 2018-12-10 14:07 | P.PN ---
Subjective Progress Note Date: 12/10/18 The patient is a 56 yo F with a PMH of sticky platelet syndrome, multiple thromboembolic events, and systolic CHF (EF 20%) presented to the Ed due to chest pain and SOB. 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 There were also patchy areas of decreased cortical enhancement of the left kidney that were worse from the previous computed tomography scan. Patient was started on a heparin infusion and hematology was consulted. The patient was started on Xarelto and the heparin infusion was DCed. The patient was seen and examined at the bedside. She notes her pain is much better controlled today. She denied any episodes of chest pain, shortness of breath, fever, chills, cough, abdominal pain, or diarrhea. Objective - Vital Signs Vital signs: Vital Signs Temp 98 F 12/10/18 08:00 Pulse 78 12/10/18 08:00 Resp 12 12/10/18 08:00 BP 136/97 12/10/18 08:00 Pulse Ox 96 12/10/18 08:00 Intake & Output 12/09/18 12/10/18 12/10/18 18:59 06:59 18:59 Intake Total 804 120 480 Output Total 1400 1000 750 Balance -596 -880 -270 Weight 38.8 kg 40.7 kg Intake: IV 204 120 120 0.9 120 120 120 Heparin Sod,Pork in 0.45% 84 NaCl 25,000 unit In 0.45 % NaCl 1 250ml.bag @ 18 UNITS/KG/HR 8.16 mls/hr IV .Q24H [facility] Rx#: [id number] Oral 600 360 Output: Urine 1400 1000 750 Other: Voiding Method Indwelling Catheter Indwelling Catheter Indwelling Catheter - Exam General: Non-toxic, in no acute distress, appears older than age, underweight HEENT: NC/AT, anicteric sclerae, moist conjunctiva, no lid-lag, PERRLA Cardiovascular: S1/S2 wnl, no murmurs, rubs, or gallops Lungs: Clear to auscultation, normal respiratory effort, no accessory muscle use Abdominal: Soft, non-tender, non-distended, no guarding, rebound, or rigidity Skin: Warm, dry Extremities: Left BKA, right AKA Psychiatric: Alert and oriented to person, place and time, appropriate affect Neuro: CN II-XII grossly intact, Strength 4/5 in all 4 extremities, Speech intact, Sensation to light touch grossly intact throughout - Labs CBC & Chem 7: 12/10/18 06:01 12/10/18 06:01 Labs: Abnormal Lab Results - Last 24 Hours (Table) 12/10/18 12/10/18 12/10/18 Range/Units 06:01 06:01 06:01 RBC 2.85 L (3.80-5.40) m/uL Hgb 8.9 L (11.4-16.0) gm/dL Hct 29.6 L (34.0-46.0) % MCV 103.7 H (80.0-100.0) fL MCHC 30.2 L (31.0-37.0) g/dL APTT 30.6 H (22.0-30.0) sec Sodium 132 L (137-145) mmol/L Potassium 5.5 H (3.5-5.1) mmol/L BUN 21 H (7-17) mg/dL Creatinine 1.18 H (0.52-1.04) mg/dL Glucose 59 L (74-99) mg/dL POC Glucose (mg/dL) (75-99) mg/dL 12/10/18 12/10/18 Range/Units 06:44 07:00 RBC (3.80-5.40) m/uL Hgb (11.4-16.0) gm/dL Hct (34.0-46.0) % MCV (80.0-100.0) fL MCHC (31.0-37.0) g/dL APTT (22.0-30.0) sec Sodium (137-145) mmol/L Potassium (3.5-5.1) mmol/L BUN (7-17) mg/dL Creatinine (0.52-1.04) mg/dL Glucose (74-99) mg/dL POC Glucose (mg/dL) 57 L 104 H (75-99) mg/dL Microbiology - Last 24 Hours (Table) 01/28/19 23:20 Urine Culture - Final Urine,Voided Enterobacter cloacae Klebsiella pneumoniae Assessment and Plan Plan: Acute right lower lobe pulmonary embolism in the setting of sticky platelet syndrome -Hematology recommendations appreciated -Patient has had multiple thromboembolic events, as evident by the CT angiogram. The patient notes she previously failed Lovenox and has been on Coumadin for 1 month and hasn't been therapeutic. -Switched to Xarelto by hematology. Hematology is attempting to obtain complete records of her prior workup -Lower extremity duplex appreciated Macrocytic anemia -Monitor for any signs of bleeding -Hematology aware -Will check vitamin B-12 and folate levels Hyperkalemia, improved -Will administer an additional dose of Kayexalate Chronic systolic CHF -Patient notes that she was only recently diagnosed with the systolic CHF and was told that she would need a workup for the cardiomyopathy -On previous admission, the patient's echo revealed EF of 20% with an LV thrombus. The patient was ultimately transferred to [facility]. -Continue with home meds -Cardiology recommended appreciated -Follow up echocardiogram MOE -Monitor BMP UTI with history of ESBL -Continue with Bactrim Severe protein calorie malnutrition -Dietary referral DVT//GI prophylaxis -Heparin infusion -No indication for GI prophylaxis Discussed with: Patient Anticipated discharge date: 12/12/[address]: Home A total of 35 minutes was spent on the care of this complex patient more than 50 % of the time was spent in counseling and care coordination.
--- NOTE | 2018-12-10 20:00 | P.PN ---
Subjective Progress Note Date: 12/10/18 Principal diagnosis: Pain and New DVTS Pain is better per patent, no acute events Objective - Vital Signs Vital signs: Vital Signs Temp 98 F 12/10/18 16:00 Pulse 84 12/10/18 16:00 Resp 14 12/10/18 16:00 BP 132/77 12/10/18 16:00 Pulse Ox 96 12/10/18 16:00 Intake & Output 12/10/18 12/10/18 12/11/18 06:59 18:59 06:59 Intake Total 120 800 Output Total 1000 1250 Balance -880 -450 Weight 40.7 kg Intake: IV 120 200 0.9 120 200 Oral 600 Output: Urine 1000 1250 Other: Voiding Method Indwelling Catheter Indwelling Catheter - Exam Gen: A&O x3, Neck: Supple, no lymphadenopathy Lungsrespirations even and unlabored, Heart: RRR Abdomen: Soft, Tender Ext: BLE amputated limbs show no progressive swelling, stumps warm - Labs CBC & Chem 7: 12/10/18 06:01 12/10/18 06:01 Labs: Abnormal Lab Results - Last 24 Hours (Table) 12/10/18 12/10/18 12/10/18 Range/Units 06:01 06:01 06:01 RBC 2.85 L (3.80-5.40) m/uL Hgb 8.9 L (11.4-16.0) gm/dL Hct 29.6 L (34.0-46.0) % MCV 103.7 H (80.0-100.0) fL MCHC 30.2 L (31.0-37.0) g/dL APTT 30.6 H (22.0-30.0) sec Sodium 132 L (137-145) mmol/L Potassium 5.5 H (3.5-5.1) mmol/L BUN 21 H (7-17) mg/dL Creatinine 1.18 H (0.52-1.04) mg/dL Glucose 59 L (74-99) mg/dL POC Glucose (mg/dL) (75-99) mg/dL 12/10/18 12/10/18 Range/Units 06:44 07:00 RBC (3.80-5.40) m/uL Hgb (11.4-16.0) gm/dL Hct (34.0-46.0) % MCV (80.0-100.0) fL MCHC (31.0-37.0) g/dL APTT (22.0-30.0) sec Sodium (137-145) mmol/L Potassium (3.5-5.1) mmol/L BUN (7-17) mg/dL Creatinine (0.52-1.04) mg/dL Glucose (74-99) mg/dL POC Glucose (mg/dL) 57 L 104 H (75-99) mg/dL Microbiology - Last 24 Hours (Table) 12/06/18 23:20 Urine Culture - Final Urine,Voided Enterobacter cloacae Klebsiella pneumoniae Assessment and Plan Plan: Assessment and Plan (1) DVT (deep venous thrombosis) (2) Pulmonary embolism - Tolerating Xarelto after initation - Pain better controlled. - hemoglobin has remained stable, monitor Renal function and CBC Rachana Myers NP
[2018-12-10] MEDS: ZOLPIDEM 5 MG TAB PO PRN (22:04)
[2018-12-11] MEDS: HYDROmorphone 0.5 MG/0.5 ML SYRINGE IVP PRN ×8 (01:14→20:58)
[2018-12-11 05:21] LABS: Basophils % (A) 1 %; Eosinophils # (A) 0.2 k/uL (0-0.7); Eosinophils % (A) 3 %; HCT 25.7 % (34.0-46.0); Hypochromasia Marked; Lymphocytes # (A) 0.7 k/uL (1.0-4.8); Lymphocytes % (A) 13 %; MCH 32.2 pg (25.0-35.0); MCHC 31.2 g/dL (31.0-37.0); MCV 103.5 fL (80.0-100.0); Macrocytosis Slight; Mean Platelet Volume 6.2; Monocytes # (A) 0.3 k/uL (0-1.0); Monocytes % (A) 5 %; Neutrophils % (A) 78 %; Platelet Count 295 k/uL (150-450); RBC 2.49 m/uL (3.80-5.40); RDW 15.3 % (11.5-15.5); WBC 5.2 k/uL (3.8-10.6)
[2018-12-11 05:31] LABS: Calcium 8.2 mg/dL (8.4-10.2); Magnesium 1.7 mg/dL (1.6-2.3); Phosphorus 4.5 mg/dL (2.5-4.5); Potassium 4.7 mmol/L (3.5-5.1)
[2018-12-11] MEDS: traMADol 50 MG TAB PO SCH ×3 (08:56→20:49)
[2018-12-11] MEDS: CLOPIDOGREL 75 MG TAB PO SCH (08:56)
[2018-12-11] MEDS: SULFAMETHOX-TMP 800-160MG 1 EACH TAB PO SCH (08:56)
[2018-12-11] MEDS: RIVAROXABAN 15 MG TAB PO SCH ×2 (08:56→18:39)
[2018-12-11] MEDS: ASPIRIN 81 MG PO SCH (09:00)
--- NOTE | 2018-12-11 09:24 | ECHOF ---
Referral Reason:CHF, LV thrombus MEASUREMENTS -------- HEIGHT: 152.4 cm WEIGHT: 40.4 kg BP: IVSd: 1.0 cm (0.6 - 1.1) LVIDd: 5.1 cm (3.9 - 5.3) LVPWd: 1.3 cm (0.6 - 1.1) IVSs: 1.3 cm LVIDs: 4.1 cm LVPWs: 1.5 cm LA Diam: 3.8 cm (2.7 - 3.8) LAESV Index (A-L): 33.85 ml/m EPSS: 0.6 cm MV E Main: 0.72 m/s MV DecT: 89 ms MV A Main: 0.44 m/s MV E/A Ratio: 1.66 RAP: 5.00 mmHg RVSP: 15.95 mmHg MV EF SLOPE: 17.79 mm/s (70 - 150) MV EXCURSION: 15.79 mm (> 18.000) FINDINGS -------- Sinus rhythm. This was a technically good study. Pt had echo 10/26 to rule out thrombus. The left ventricular size is normal. There is severe global hypokinesis of LV . Overall left vent ricular systolic function is severely impaired with, an EF < 20%. The right ventricle is normal in size. The left atrium is moderately dilated. LA is moderately dilated 34-39 ml/m2 The right atrial size is normal. 5.0mg OF Lumason UTLIZED: 2 OR MORE WALL SEGMENTS NOT VISUALIZED. The aortic valve is trileaflet, and appears structurally normal. No aortic stenosis or regurgitation. The mitral valve leaflets are mildly thickened. Moderate mitral regurgitation is present. Mild tricuspid regurgitation present. There is no evidence of pulmonary hypertension. The right v entricular systolic pressure, as measured by Doppler, is 15.95mmHg. There is no pulmonic regurgitation present. The mass is located in the apical portion of the left ventricle. The mass has a solid texture. The aortic root size is normal. There is no pericardial effusion. CONCLUSIONS -------- 1. Pt had echo 10/26 to rule out thrombus. 2. The left ventricular size is normal. 3. There is severe global hypokinesis of LV . 4. Overall left ventricular systolic function is severely impaired with, an EF < 20%. 5. The right ventricle is normal in size. 6. The left atrium is moderately dilated. 7. LA is moderately dilated 34-39 ml/m2 8. The right atrial size is normal. 9. 5.0mg OF Lumason UTLIZED: 2 OR MORE WALL SEGMENTS NOT VISUALIZED. 10. The aortic valve is trileaflet, and appears structurally normal. No aortic stenosis or regurgitat ion. 11. The mitral valve leaflets are mildly thickened. 12. Moderate mitral regurgitation is present. 13. Mild tricuspid regurgitation present. 14. There is no evidence of pulmonary hypertension. 15. The right ventricular systolic pressure, as measured by Doppler, is 15.95mmHg. 16. There is no pulmonic regurgitation present. 17. The mass is located in the apical portion of the left ventricle. 18. The mass has a solid texture. 19. The aortic root size is normal. 20. There is no pericardial effusion. BOILER TECHNICIAN: Diane Gonzalez RDCS
[2018-12-11 10:55] LABS: Folate, Serum 8.4 ng/mL
--- NOTE | 2018-12-11 13:13 | PN ---
PROGRESS NOTE Mrs. Linares is a 48-year-old female who presented with symptoms of dyspnea. She has known history of severe peripheral vessel disease, history of cardiomyopathy, history of amputation, sticky platelets syndrome. She presented with severe dyspnea and was noted to have a pulmonary embolism. She is doing reasonably well at this time. She has no significant chest pain. Her breathing is stable. Hemodynamically, she is stable. She had an echocardiogram that revealed ejection fraction of 20%. She continues to be at this time on aspirin 81 mg daily, Plavix 75 mg daily, and Xarelto 15 mg twice a day. PHYSICAL EXAMINATION: Blood pressure 123/80 with a heart rate in the 80s. Lungs with decreased air exchange, no wheezes. HEART: Regular rate and rhythm, S1, S2 with systolic murmur, no diastolic murmur. ABDOMEN: Soft, nontender. EXTREMITIES: Status post lower extremities amputation. LAB DATA: Revealed BUN and creatinine 21 and 1.35, hemoglobin of 8. IMPRESSION: 1. Pulmonary embolism. 2. Sticky platelet syndrome. 3. Severe cardiomyopathy. 4. Severe peripheral vascular disease. RECOMMENDATION: From the cardiac standpoint, will continue present therapy. Follow her renal function and depending on her progress, further recommendations will be made. The patient has a known left ventricular apical thrombus. MMODL / IJN: [id number] /
--- NOTE | 2018-12-11 13:30 | P.PN ---
Subjective Progress Note Date: 12/11/18 The patient is a 56 yo F with a PMH of sticky platelet syndrome, multiple thromboembolic events, and systolic CHF (EF 20%) presented to the Ed due to chest pain and SOB. 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 There were also patchy areas of decreased cortical enhancement of the left kidney that were worse from the previous computed tomography scan. Patient was started on a heparin infusion and hematology was consulted. The patient was started on Xarelto and the heparin infusion was DCed. The patient was seen and examined at the bedside. The patient continues to complain of leg and back pain. She otherwise denied fever, chills, nausea, vomiting, diarrhea, cough, chest pain or shortness of breath. Objective - Vital Signs Vital signs: Vital Signs Temp 98.8 F 12/11/18 08:01 Pulse 89 12/11/18 08:01 Resp 14 12/11/18 08:01 BP 123/81 12/11/18 08:01 Pulse Ox 100 12/11/18 08:01 Intake & Output 12/10/18 12/11/18 12/11/18 18:59 06:59 18:59 Intake Total 800 770 40 Output Total 1250 1100 375 Balance -450 -330 -335 Weight 35.7 kg Intake: IV 200 120 40 0.9 200 120 40 Oral 600 650 Output: Urine 1250 1100 375 Other: Voiding Method Indwelling Catheter Indwelling Catheter - Exam General: Non-toxic, in no acute distress, appears older than age, underweight HEENT: NC/AT, anicteric sclerae, moist conjunctiva, no lid-lag, PERRLA Cardiovascular: S1/S2 wnl, no murmurs, rubs, or gallops Lungs: Clear to auscultation, normal respiratory effort, no accessory muscle use Abdominal: Soft, non-tender, non-distended, no guarding, rebound, or rigidity Skin: Warm, dry Extremities: Left BKA, right AKA, stumps warm, dry Psychiatric: Alert and oriented to person, place and time, appropriate affect Neuro: CN II-XII grossly intact, Strength 4/5 in all 4 extremities, Speech intact, Sensation to light touch grossly intact throughout - Labs CBC & Chem 7: 12/11/18 04:58 12/11/18 04:58 Labs: Abnormal Lab Results - Last 24 Hours (Table) 12/11/18 12/11/18 Range/Units 04:58 04:58 RBC 2.49 L (3.80-5.40) m/uL Hgb 8.0 L (11.4-16.0) gm/dL Hct 25.7 L (34.0-46.0) % MCV 103.5 H (80.0-100.0) fL Lymphocytes # 0.7 L (1.0-4.8) k/uL Sodium 130 L (137-145) mmol/L BUN 21 H (7-17) mg/dL Creatinine 1.35 H (0.52-1.04) mg/dL Calcium 8.2 L (8.4-10.2) mg/dL Microbiology - Last 24 Hours (Table) 12/06/18 23:20 Urine Culture - Final Urine,Voided Enterobacter cloacae Klebsiella pneumoniae Assessment and Plan Plan: Acute right lower lobe pulmonary embolism in the setting of sticky platelet syndrome -Hematology recommendations appreciated -Patient has had multiple thromboembolic events, as evident by the CT angiogram. The patient notes she previously failed Lovenox and has been on Coumadin for 1 month and hasn't been therapeutic. -Switched to Xarelto by hematology. Hematology is attempting to obtain complete records of her prior workup -Lower extremity duplex appreciated Macrocytic anemia -Monitor for any signs of bleeding -Hematology aware -B12 and folate levels unremarkable Hyperkalemia -Resolved Chronic systolic CHF, euvolemic with LV thrombus -Continue with home meds -Cardiology recommendations appreciated -Echocardiogram reviewed MOE -Monitor BMP UTI with history of ESBL -Continue with Bactrim Severe protein calorie malnutrition -Dietary referral DVT//GI prophylaxis -Heparin infusion -No indication for GI prophylaxis Discussed with: Patient Anticipated discharge date: 12/12/[address]: Home A total of 35 minutes was spent on the care of this complex patient more than 50 % of the time was spent in counseling and care coordination.
[2018-12-11] MEDS: SULFAMETHOX-TMP 400-80MG 1 EACH TAB PO SCH (20:49)
[2018-12-12] MEDS: HYDROmorphone 0.5 MG/0.5 ML SYRINGE IVP PRN ×8 (00:31→22:54)
[2018-12-12] MEDS: ZOLPIDEM 5 MG TAB PO PRN (00:34)
[2018-12-12] MEDS: RIVAROXABAN 15 MG TAB PO SCH ×2 (06:36→17:33)
[2018-12-12 07:16] LABS: Basophils % (A) 0 %; Eosinophils # (A) 0.2 k/uL (0-0.7); Eosinophils % (A) 4 %; HCT 29.9 % (34.0-46.0); HGB 9.2 gm/dL (11.4-16.0); Hypochromasia Moderate; Lymphocytes # (A) 0.7 k/uL (1.0-4.8); Lymphocytes % (A) 16 %; MCH 31.2 pg (25.0-35.0); MCHC 30.7 g/dL (31.0-37.0); MCV 101.8 fL (80.0-100.0); Macrocytosis Slight; Mean Platelet Volume 6.5; Monocytes # (A) 0.2 k/uL (0-1.0); Monocytes % (A) 5 %; Neutrophils # (A) 3.3 k/uL (1.3-7.7); Neutrophils % (A) 74 %; Platelet Count 328 k/uL (150-450); RBC 2.94 m/uL (3.80-5.40); RDW 15.1 % (11.5-15.5); WBC 4.5 k/uL (3.8-10.6)
[2018-12-12 07:34] LABS: Calcium 8.3 mg/dL (8.4-10.2); Potassium 4.7 mmol/L (3.5-5.1)
[2018-12-12] MEDS: SULFAMETHOX-TMP 400-80MG 1 EACH TAB PO SCH (08:45)
[2018-12-12] MEDS: traMADol 50 MG TAB PO SCH ×3 (08:45→21:29)
[2018-12-12] MEDS: CLOPIDOGREL 75 MG TAB PO SCH (08:45)
[2018-12-12] MEDS: ASPIRIN 81 MG PO SCH (08:45)
--- NOTE | 2018-12-12 11:45 | P.NPCON ---
History of Present Illness - Reason for Consult acute renal failure - Chief Complaint Back pain - History of Present Illness 48-year-old -[place] female coming to the hospital with the above complaints. 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 Presents to the hospital with pulmonary embolism and also had a CTA with 100 ML's of contrast was used. Which showed infrarenal aortic obstruction with some infarcts in the right kidney and also left. Baseline creatinine 0.8 MG per DL. Her creatinine creeping to 1.4 today. No history of NSAID use. She was getting Bactrim while in the hospital. He also complains of nausea vomiting and diarrhea prior to hospitalization. Review of Systems Constitutional: Reports as per HPI Past Medical History Past Medical History: Asthma, Heart Failure, CVA/TIA, Deep Vein Thrombosis (DVT) , Osteoarthritis (OA), Pulmonary Embolus (PE), Renal Disease Additional Past Medical History / Comment(s): sticky platelet syndrome, bronchitis, anx/depression, falls History of Any Multi-Drug Resistant Organisms: ESBL Date of last positivie culture/infection: 10/15/18 ESBL MDRO Source:: Urine Past Surgical History: Cholecystectomy, Coronary Bypass/CABG Additional Past Surgical History / Comment(s): ltBKA, left lower leg, aortic bypass right leg, right leg fasciotomy.pt stated had another vascular sx after the fasciotomy at [facility] unclear as to exactly what was done Rt BKA Past Anesthesia/Blood Transfusion Reactions: No Reported Reaction Additional Past Anesthesia/Blood Transfusion Reaction / Comment(s): pt stated has had a blood transfusion in past-no reaction Past Psychological History: Anxiety, Depression Smoking Status: Former smoker Past Alcohol Use History: None Reported Past Drug Use History: None Reported - Past Family History Mother Additional Family Medical History / Comment(s): MS, legally blind, cataracts Father Additional Family Medical History / Comment(s): Was younger when he , car accident Medications and Allergies Home Medications Medication Instructions Recorded Confirmed Type Aspirin EC [Ecotrin Low Dose] 81 mg PO DAILY 10/26/18 12/06/18 History Clopidogrel Bisulfate [Plavix] 75 mg PO DAILY 12/06/18 12/06/18 History Rivaroxaban [Xarelto Starter Pack] 1 each PO DIRECTED #1 pkg 12/09/18 Rx Allergies Allergy/AdvReac Type Severity Reaction Status Date / Time ibuprofen Allergy Unknown Verified 12/06/18 22:09 trazodone Allergy Chest Pain Verified 12/06/18 22:09 Physical Exam Vitals: Vital Signs Temp Pulse Pulse Resp BP BP Pulse Ox 12/12/18 08:00 98.2 F 88 16 115/69 100 12/12/18 03:11 18 12/11/18 23:46 18 12/11/18 20:00 18 12/11/18 16:00 98.3 F 83 18 120/73 100 12/11/18 14:00 80 19 121/84 12/11/18 12:00 75 19 Intake and Output 12/11/18 12/12/18 12/12/18 22:59 06:59 14:59 Intake Total 80 80 240 Output Total 600 20 Balance -520 80 220 Intake: IV 80 80 0.9 80 80 Oral 240 Output: Urine 600 20 Other: Voiding Method Indwelling Catheter Indwelling Catheter Indwelling Catheter # Voids 1 # Bowel Movements 1 Weight 35.7 kg No acute distress S1-S2 heard Lungs clear No edema Results - Lab Results Most recent lab results Calcium 8.3 mg/dL (8.4-10.2) L 12/12/18 06:51 Phosphorus 4.5 mg/dL (2.5-4.5) 12/11/18 04:58 Magnesium 1.7 mg/dL (1.6-2.3) 12/11/18 04:58 12/12/18 06:51 12/12/18 06:51 Assessment and Plan Assessment: #1 acute kidney injury secondary to DONNA and also component of Bactrim. 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 #3 history of arterial and venous thrombosis currently on anticoagulation #4 new-onset pulmonary embolism #5 mild hyperkalemia currently on potassium supplements Plan: #1 start IV fluids normal saline at 75 ML's an hour. #2 stop Bactrim and potassium supplements #3 avoid nephrotoxic agents and hypotensive episodes #4 repeat labs in the morning
[2018-12-12] MEDS: SODIUM CHLORIDE 0.9% 1,000 ML IV SCH (12:39)
--- NOTE | 2018-12-12 13:33 | P.PN ---
Subjective Progress Note Date: 12/12/18 Principal diagnosis: Pulmonary Embolism This is a pleasant 48-year-old female who presented to the hospital with dyspnea. She has a known history of severe peripheral vascular disease, cardiomyopathy, history of amputation, sticky platelet syndrome. Chronic admission, patient was noted to have pulmonary embolism. She was started on IV heparin and subsequently switched to Xarelto. Her breathing is currently stable. She did have limited echo that revealed an ejection fraction of 20%. She does have a known left ventricular apical thrombus. Objective - Vital Signs Vital signs: Vital Signs Temp 98.2 F 12/12/18 08:00 Pulse 88 12/12/18 12:00 Resp 16 12/12/18 12:00 BP 115/69 12/12/18 08:00 Pulse Ox 100 12/12/18 08:00 Intake & Output 12/11/18 12/12/18 12/12/18 18:59 06:59 18:59 Intake Total 120 120 240 Output Total 975 20 Balance -855 120 220 Weight 35.7 kg Intake: IV 120 120 0.9 120 120 Oral 240 Output: Urine 975 20 Other: Voiding Method Indwelling Catheter Indwelling Catheter Indwelling Catheter # Voids 1 # Bowel Movements 1 - Exam PHYSICAL EXAMINATION: HEENT: Head is atraumatic, normocephalic. Pupils equal, round. Neck is supple. There is no elevated jugular venous pressure. HEART EXAMINATION: Heart sounds regular, S1 and S2 with a systolic murmur. CHEST EXAMINATION: Lungs reveal diminished air exchange bilaterally. No chest wall tenderness is noted on palpation or with deep breathing. ABDOMEN: Soft, nontender. Bowel sounds are heard. No organomegaly noted. EXTREMITIES: Status post lower extremity amputation. NEUROLOGIC patient is awake, alert and oriented x3. . - Labs CBC & Chem 7: 12/12/18 06:51 12/12/18 06:51 Labs: Abnormal Lab Results - Last 24 Hours (Table) 12/12/18 12/12/18 Range/Units 06:51 06:51 RBC 2.94 L (3.80-5.40) m/uL Hgb 9.2 L (11.4-16.0) gm/dL Hct 29.9 L (34.0-46.0) % MCV 101.8 H (80.0-100.0) fL MCHC 30.7 L (31.0-37.0) g/dL Lymphocytes # 0.7 L (1.0-4.8) k/uL Sodium 133 L (137-145) mmol/L BUN 24 H (7-17) mg/dL Creatinine 1.44 H (0.52-1.04) mg/dL Glucose 116 H (74-99) mg/dL Calcium 8.3 L (8.4-10.2) mg/dL Assessment and Plan Assessment: #1 pulmonary embolism #2 sticky platelet syndrome #3 severe cardiomyopathy #4 severe peripheral vascular disease Plan: From cardiology's perspective, we will continue current therapy. Continue to follow renal function. We'll continue to follow the patient by further recommendations accordingly. HUMAN RESOURCES COORDINATOR note has been reviewed, I agree with a documented findings and plan of care. Patient was seen and examined.
--- NOTE | 2018-12-12 13:47 | P.GSCN ---
History of Present Illness Consult date: 12/12/18 History of present illness: The patient is a 48-year-old female who is in the hospital with chest pain, and further evaluation for this. The patient has a known history of sticky platelet syndrome. This is led to multiple issues including arterial and venous thromboses. Apparently she came in with a pulmonary embolus. The patient has had problems with this over the last month. She was in [facility] and then at [facility] with this problem month ago. She states that a catheter was placed a month ago here in [place]. Ever since. She states that a couple of voiding trials of been attempted but failed already questioned her more closely than the voiding trials lasted only a couple of hours and when the catheters placed minimal urine output was obtained. She does have a mild elevation of her creatinine 1.44. She had a thoracic CT urogram that apparently showed some infarcts into her kidney due to the sticky plate syndrome. Prior to the hospitalization a month ago she stated she urinated without difficulty. She has been treated with antibiotics but only since the catheters been placed. There is been no urologic problems prior to a month ago. From the patient there is no other urologic disease. There is been no previous urologic surgery. Review of Systems - Constitutional Reports lethargy - Cardiovascular Reports dyspnea on exertion, Reports shortness of breath - Genitourinary Genitourinary: Reports as per HPI Past Medical History Past Medical History: Asthma, Heart Failure, CVA/TIA, Deep Vein Thrombosis (DVT) , Osteoarthritis (OA), Pulmonary Embolus (PE), Renal Disease Additional Past Medical History / Comment(s): sticky platelet syndrome, bronchitis, anx/depression, falls History of Any Multi-Drug Resistant Organisms: ESBL Year Discovered:: 10/15/18 ESBL MDRO Source:: Urine Past Surgical History: Cholecystectomy, Coronary Bypass/CABG Additional Past Surgical History / Comment(s): ltBKA, left lower leg, aortic bypass right leg, right leg fasciotomy.pt stated had another vascular sx after the fasciotomy at [facility] unclear as to exactly what was done Rt BKA Past Anesthesia/Blood Transfusion Reactions: No Reported Reaction Additional Past Anesthesia/Blood Transfusion Reaction / Comm: pt stated has had a blood transfusion in past-no reaction Past Psychological History: Anxiety, Depression Smoking Status: Former smoker Past Alcohol Use History: None Reported Past Drug Use History: None Reported - Past Family History Mother Additional Family Medical History / Comment(s): MS, legally blind, cataracts Father Additional Family Medical History / Comment(s): Was younger when he , car accident Medications and Allergies Home Medications Medication Instructions Recorded Confirmed Type Aspirin EC [Ecotrin Low Dose] 81 mg PO DAILY 10/26/18 12/06/18 History Clopidogrel Bisulfate [Plavix] 75 mg PO DAILY 12/06/18 12/06/18 History Rivaroxaban [Xarelto Starter Pack] 1 each PO DIRECTED #1 pkg 12/09/18 Rx Allergies Allergy/AdvReac Type Severity Reaction Status Date / Time ibuprofen Allergy Unknown Verified 12/06/18 22:09 trazodone Allergy Chest Pain Verified 12/06/18 22:09 Surgical - Exam Vital Signs Temp Pulse Resp BP 98.4 F 99 20 125/84 12/06/18 21:30 12/06/18 21:30 12/06/18 21:30 12/06/18 21:30 Thin black female who appears older than her stated age of 48. Nasal oxygen - Eyes PERRL - ENT no hearing loss - Neck trachea midline - Respiratory normal expansion, normal respiratory effort - Cardiovascular Rhythm: regular - Abdomen Abdomen: soft, non tender - Integumentary no rash, no growths - Neurologic normal sensation - Psychiatric oriented to time, oriented to person, oriented to place, speech is normal, memory intact Results - Labs 12/12/18 06:51 12/12/18 06:51 Abnormal Lab Results - Last 24 Hours (Table) 12/12/18 12/12/18 Range/Units 06:51 06:51 RBC 2.94 L (3.80-5.40) m/uL Hgb 9.2 L (11.4-16.0) gm/dL Hct 29.9 L (34.0-46.0) % MCV 101.8 H (80.0-100.0) fL MCHC 30.7 L (31.0-37.0) g/dL Lymphocytes # 0.7 L (1.0-4.8) k/uL Sodium 133 L (137-145) mmol/L BUN 24 H (7-17) mg/dL Creatinine 1.44 H (0.52-1.04) mg/dL Glucose 116 H (74-99) mg/dL Calcium 8.3 L (8.4-10.2) mg/dL Diabetes panel 12/12/18 Range/Units 06:51 Sodium 133 L (137-145) mmol/L Potassium 4.7 (3.5-5.1) mmol/L Chloride 99 (98-107) mmol/L Carbon Dioxide 29 (22-30) mmol/L BUN 24 H (7-17) mg/dL Creatinine 1.44 H (0.52-1.04) mg/dL Glucose 116 H (74-99) mg/dL Calcium 8.3 L (8.4-10.2) mg/dL Calcium panel 12/12/18 Range/Units 06:51 Calcium 8.3 L (8.4-10.2) mg/dL Pituitary panel 12/12/18 Range/Units 06:51 Sodium 133 L (137-145) mmol/L Potassium 4.7 (3.5-5.1) mmol/L Chloride 99 (98-107) mmol/L Carbon Dioxide 29 (22-30) mmol/L BUN 24 H (7-17) mg/dL Creatinine 1.44 H (0.52-1.04) mg/dL Glucose 116 H (74-99) mg/dL Calcium 8.3 L (8.4-10.2) mg/dL Adrenal panel 12/12/18 Range/Units 06:51 Sodium 133 L (137-145) mmol/L Potassium 4.7 (3.5-5.1) mmol/L Chloride 99 (98-107) mmol/L Carbon Dioxide 29 (22-30) mmol/L BUN 24 H (7-17) mg/dL Creatinine 1.44 H (0.52-1.04) mg/dL Glucose 116 H (74-99) mg/dL Calcium 8.3 L (8.4-10.2) mg/dL - Imaging CT scan - abdomen: pending, report reviewed CT scan - chest: pending, report reviewed CT scan - pelvis: pending, report reviewed Assessment and Plan Assessment: Impression: Sticky platelet syndrome with multiple medical illnesses including pulmonary embolus, peripheral vascular disease, myocardial infarction. Chronic indwelling catheter over the last month of indeterminate cause. Positive urine culture due to indwelling catheter Recommendations: From a urologic standpoint I question whether the catheter is needed other than to monitor intake and output. She did not have any voiding dysfunction prior to her illness does not sound as if she's had an adequate voiding trial. Once her renal insufficiency has stabilized medical illnesses improved I think would be appropriate to remove the catheter to give a true voiding trial. With regards to the positive urine cultures. I would expect the urine culture to be positive the lung was is an indwelling catheter. Lungs she does not show signs of sepsis such as elevated white count or disorientation do not recommend treating the bacteriuria from the catheter. I' ll follow this patient with you.
--- NOTE | 2018-12-12 14:50 | P.PN ---
Subjective Progress Note Date: 12/12/18 The patient is a 56 yo F with a PMH of sticky platelet syndrome, multiple thromboembolic events, and systolic CHF (EF 20%) presented to the ED due to chest pain and SOB. 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 There were also patchy areas of decreased cortical enhancement of the left kidney that were worse from the previous computed tomography scan. Patient was started on a heparin infusion and hematology was consulted. The patient was started on Xarelto and the heparin infusion was DCed. The patient was seen and examined at the bedside. She notes that her pain is better controlled though continues to have R sided back pain. She otherwise denied fever, chills, nausea, vomiting, diarrhea, cough, chest pain or shortness of breath. Objective - Vital Signs Vital signs: Vital Signs Temp 98.2 F 12/12/18 08:00 Pulse 88 12/12/18 12:00 Resp 16 12/12/18 12:00 BP 115/69 12/12/18 08:00 Pulse Ox 100 12/12/18 08:00 Intake & Output 12/11/18 12/12/18 12/12/18 18:59 06:59 18:59 Intake Total 120 120 720 Output Total 975 20 Balance -855 120 700 Weight 35.7 kg Intake: IV 120 120 0.9 120 120 Oral 720 Output: Urine 975 20 Other: Voiding Method Indwelling Catheter Indwelling Catheter Indwelling Catheter # Voids 1 # Bowel Movements 1 - Exam General: Non-toxic, in no acute distress, appears older than age, underweight HEENT: NC/AT, anicteric sclerae, moist conjunctiva, no lid-lag, PERRLA Cardiovascular: S1/S2 wnl, no murmurs, rubs, or gallops Lungs: Clear to auscultation, normal respiratory effort, no accessory muscle use Abdominal: Soft, non-tender, non-distended, no guarding, rebound, or rigidity Skin: Warm, dry Extremities: Left BKA, right AKA, stumps warm, dry, R paraspinal mild tenderness Psychiatric: Alert and oriented to person, place and time, appropriate affect Neuro: CN II-XII grossly intact, Strength 4/5 in all 4 extremities, Speech intact, Sensation to light touch grossly intact throughout - Labs CBC & Chem 7: 12/12/18 06:51 12/12/18 06:51 Labs: Abnormal Lab Results - Last 24 Hours (Table) 12/12/18 12/12/18 Range/Units 06:51 06:51 RBC 2.94 L (3.80-5.40) m/uL Hgb 9.2 L (11.4-16.0) gm/dL Hct 29.9 L (34.0-46.0) % MCV 101.8 H (80.0-100.0) fL MCHC 30.7 L (31.0-37.0) g/dL Lymphocytes # 0.7 L (1.0-4.8) k/uL Sodium 133 L (137-145) mmol/L BUN 24 H (7-17) mg/dL Creatinine 1.44 H (0.52-1.04) mg/dL Glucose 116 H (74-99) mg/dL Calcium 8.3 L (8.4-10.2) mg/dL Assessment and Plan Plan: Acute right lower lobe pulmonary embolism in the setting of sticky platelet syndrome -Hematology recommendations appreciated -Patient has had multiple thromboembolic events, as evident by the CT angiogram. The patient notes she previously failed Lovenox and has been on Coumadin for 1 month and hasn't been therapeutic. -Switched to Xarelto by hematology. Hematology is attempting to obtain complete records of her prior workup -Lower extremity duplex appreciated MOE -Nephrology recommendations appreciated -Bactrim DCed -Will c/w IVFs 75 cc/hr UTI in setting of Indwelling renteria catheter -Urology recs appreciated -Will attempt voiding trial -Discontinue Bactrim Macrocytic anemia -Monitor for any signs of bleeding -Hematology aware -B12 and folate levels unremarkable Hyperkalemia -Resolved Chronic systolic CHF, euvolemic with LV thrombus -Continue with home meds -Cardiology recommendations appreciated -Echocardiogram reviewed Severe protein calorie malnutrition -Dietary referral DVT//GI prophylaxis -Heparin infusion -No indication for GI prophylaxis Discussed with: Patient Anticipated discharge date: 12/13/[address]: Home A total of 35 minutes was spent on the care of this complex patient more than 50 % of the time was spent in counseling and care coordination.
[2018-12-13] MEDS: HYDROmorphone 0.5 MG/0.5 ML SYRINGE IVP PRN ×7 (01:47→22:48)
[2018-12-13] MEDS: SODIUM CHLORIDE 0.9% 1,000 ML IV SCH ×2 (02:09→18:27)
[2018-12-13 06:07] LABS: Basophils % (A) 1 %; Eosinophils # (A) 0.2 k/uL (0-0.7); Eosinophils % (A) 5 %; HCT 27.1 % (34.0-46.0); HGB 8.3 gm/dL (11.4-16.0); Hypochromasia Marked; Lymphocytes # (A) 1.1 k/uL (1.0-4.8); Lymphocytes % (A) 24 %; MCH 32.1 pg (25.0-35.0); MCHC 30.7 g/dL (31.0-37.0); MCV 104.5 fL (80.0-100.0); Macrocytosis Moderate; Mean Platelet Volume 6.4; Monocytes # (A) 0.3 k/uL (0-1.0); Monocytes % (A) 5 %; Neutrophils # (A) 2.9 k/uL (1.3-7.7); Neutrophils % (A) 63 %; Platelet Count 278 k/uL (150-450); RBC 2.59 m/uL (3.80-5.40); RDW 14.8 % (11.5-15.5); WBC 4.6 k/uL (3.8-10.6)
[2018-12-13 06:29] LABS: Potassium 4.5 mmol/L (3.5-5.1)
[2018-12-13] MEDS: RIVAROXABAN 15 MG TAB PO SCH ×2 (06:38→16:38)
[2018-12-13] MEDS: CLOPIDOGREL 75 MG TAB PO SCH (08:28)
[2018-12-13] MEDS: ASPIRIN 81 MG PO SCH (08:28)
[2018-12-13] MEDS: traMADol 50 MG TAB PO SCH ×3 (08:28→21:04)
[2018-12-13 08:46] LABS: Protein, Total 5.7 g/dL (6.2-8.2)
[2018-12-13 11:03] VITALS: BMI 18.5
[2018-12-13 12:34] VITALS: RESP 18
[2018-12-13 15:08] LABS: Albumin 2.43 g/dL (3.80-4.90); Gamma Globulin 1.29 g/dL (0.70-1.50)
--- NOTE | 2018-12-13 15:54 | P.PN ---
Subjective Progress Note Date: 12/13/18 This is a pleasant 48-year-old female who presented to the hospital with dyspnea. She has a known history of severe peripheral vascular disease, cardiomyopathy, history of amputation, sticky platelet syndrome. Chronic admission, patient was noted to have pulmonary embolism. She was started on IV heparin and subsequently switched to Xarelto. Her breathing is currently stable. She did have limited echo that revealed an ejection fraction of 20%. She does have a known left ventricular apical thrombus. Objective - Vital Signs Vital signs: Vital Signs Temp 98.5 F 12/13/18 08:00 Pulse 79 12/13/18 12:00 Resp 18 12/13/18 12:00 BP 134/84 12/13/18 12:00 Pulse Ox 100 12/13/18 08:00 Intake & Output 12/12/18 12/13/18 12/13/18 18:59 06:59 18:59 Intake Total 720 650 240 Output Total 620 1500 750 Balance 100 -850 -510 Weight 43 kg 43 kg Intake: IV 650 0.9 650 Oral 720 240 Output: Urine 620 1500 750 Other: Voiding Method Indwelling Catheter Indwelling Catheter Diaper # Voids 1 # Bowel Movements 1 - Exam PHYSICAL EXAMINATION: HEENT: Head is atraumatic, normocephalic. Pupils equal, round. Neck is supple. There is no elevated jugular venous pressure. HEART EXAMINATION: Heart sounds regular, S1 and S2 with a systolic murmur. CHEST EXAMINATION: Lungs reveal diminished air exchange bilaterally. No chest wall tenderness is noted on palpation or with deep breathing. ABDOMEN: Soft, nontender. Bowel sounds are heard. No organomegaly noted. EXTREMITIES: Status post lower extremity amputation. NEUROLOGIC patient is awake, alert and oriented x3. . - Labs CBC & Chem 7: 12/13/18 05:54 12/13/18 05:54 Labs: Abnormal Lab Results - Last 24 Hours (Table) 12/12/18 12/13/18 12/13/18 Range/Units 06:51 05:54 05:54 RBC 2.59 L (3.80-5.40) m/uL Hgb 8.3 L (11.4-16.0) gm/dL Hct 27.1 L (34.0-46.0) % MCV 104.5 H (80.0-100.0) fL MCHC 30.7 L (31.0-37.0) g/dL Sodium 134 L (137-145) mmol/L BUN 29 H (7-17) mg/dL Creatinine 1.29 H (0.52-1.04) mg/dL Glucose 73 L (74-99) mg/dL Calcium 8.0 L (8.4-10.2) mg/dL Total Protein (PEP) 5.7 L (6.2-8.2) g/dL Albumin (PEP) 2.43 L (3.80-4.90) g/dL Fbnaq-0-Vcttftrma 0.50 H (0.10-0.40) g/dL Free Picacho LC, Quant 8.36 H (0.33-1.94) mg/dL Free Lambda LC, Quant 5.47 H (0.57-2.63) mg/dL Assessment and Plan Plan: Assessment: #1 pulmonary embolism #2 sticky platelet syndrome #3 severe cardiomyopathy #4 severe peripheral vascular disease Plan From cardiology's perspective, we'll recommend to continue this patient on her current medications. We'll follow along with you now on an as-needed basis only , please don't hesitate to call with any questions. DNP note has been reviewed, I agree with a documented findings and plan of care. Patient was seen and examined.
--- NOTE | 2018-12-13 16:27 | P.PN ---
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 He was started on a heparin drip and admitted her for further monitoring and care. Hematology was consulted as patient had been on Coumadin but had not been therapeutic. They attempted to contact her outpatient statistics tutor which had her on Coumadin. She was ultimately transitioned to Xarelto she had also failed Lovenox in the past. Cardiology was consulted who recommended continuing her current medications that she has had difficulty tolerating beta blockers and nolvia inhibitors in the past secondary to recurrent hypotension. She was seen by nephrology as her kidney function decreased during hospitalization. They recommended discontinuing Bactrim started IV fluids. She was seen by urology as she had a chronic indwelling Joyce catheter placed on admission is concern for urinary tract infection. Urology felt like this was contamination and not product sales representative of true infection. They recommended voiding trial to see if she could discontinue her Joyce catheter. Patient seen and examined at bedside. She denies any pain currently. Complains of vaginal itching but states she has not been sexually active in 3 years. Denies any diarrhea or constipation. No unusual shortness of breath. We discussed probable yeast infection. Also concern of being on Xarelto as there is no way to monitor this. We discussed that Xarelto does not need to be monitored. Objective - Vital Signs Vital signs: Vital Signs Temp 98.5 F 12/13/18 08:00 Pulse 87 12/13/18 08:00 Resp 20 12/13/18 08:00 BP 116/68 12/13/18 08:00 Pulse Ox 100 12/13/18 08:00 Intake & Output 12/12/18 12/13/18 12/13/18 18:59 06:59 18:59 Intake Total 720 650 240 Output Total 620 1500 Balance 100 -850 240 Weight 43 kg Intake: IV 650 0.9 650 Oral 720 240 Output: Urine 620 1500 Other: Voiding Method Indwelling Catheter Indwelling Catheter Indwelling Catheter # Voids 1 # Bowel Movements 1 - Exam General: non toxic, no distress, appears at stated age Derm: warm, dry Head: atraumatic, normocephalic, symmetric Eyes: EOMI, no lid lag, anicteric sclera Mouth: no lip lesion, mucus membranes moist Cardiovascular: S1S2 reg, no murmur, positive posterior tibial pulse bilateral, Lungs: CTA bilateral, no rhonchi, no rales , no accessory muscle use Abdominal: soft, nontender to palpation, no guarding, no appreciable organomegaly Ext: Left BKA and right AKA with stumps warm and dry,+ gross muscle atrophy, no edema, no contractures Neuro: CN II-XI grossly intact, no focal neuro deficits Psych: Alert, oriented, appropriate affect - Labs CBC & Chem 7: 12/13/18 05:54 12/13/18 05:54 Labs: Abnormal Lab Results - Last 24 Hours (Table) 12/12/18 12/13/18 12/13/18 Range/Units 06:51 05:54 05:54 RBC 2.59 L (3.80-5.40) m/uL Hgb 8.3 L (11.4-16.0) gm/dL Hct 27.1 L (34.0-46.0) % MCV 104.5 H (80.0-100.0) fL MCHC 30.7 L (31.0-37.0) g/dL Sodium 134 L (137-145) mmol/L BUN 29 H (7-17) mg/dL Creatinine 1.29 H (0.52-1.04) mg/dL Glucose 73 L (74-99) mg/dL Calcium 8.0 L (8.4-10.2) mg/dL Total Protein (PEP) 5.7 L (6.2-8.2) g/dL Assessment and Plan Assessment: Acute right lower lobe pulmonary embolism and left lower extremity DVT in the setting of sticky platelet syndrome -Hematology recommendations appreciated patient is currently on Xarelto -We will need outpatient follow-up with her chipper feeder on her prehospital MOE on chronic kidney disease stage III -Off of Bactrim -Nephrology respirations appreciated -Currently on normal saline at 75 mL an hour, continue 24 hours or but then discontinue with history of ejection fraction less than 20% -Repeat BMP in a.m. Chronic indwelling Joyce catheter, reason undetermined -Urology determine no active signs of infection -Off antibiotics -Voiding trial today -Likely home in a.m. if passes voiding trial Macrocytic anemia -B12 for levels unremarkable -No signs of bleeding -Follow CBC -Outpatient follow-up with hematology oncology Chronic systolic congestive heart failure with ejection fraction less than 20% and LV thrombus -Has not tolerated beta marcos and NOLVIA inhibitor in the past secondary to hypotension -Cardiology recommendations appreciated -Outpatient cardiology follow-up Severe protein calorie malnutrition -Dietary recommendations - supplements Prior concern for adrenal insufficiency - random cortisol level in AM - had been on steroids previously. Hyperkalemia, resolved DVT prophylaxis: ann-marie Discussed with: patient, nursing Anticipated discharge: [address]: home A total of 35 minutes was spent on the care of this complex patient more than 50 % of the time was spent in counseling and care coordination.
[2018-12-13 16:50] LABS: Glucose,Whole Blood 112 mg/dL (75-99)
[2018-12-13] MEDS ORDERED: MICONAZOLE NITRATE 4%/2% VAG CREAM KIT VAGINAL SCH (21:00)
[2018-12-13] MEDS: ZOLPIDEM 5 MG TAB PO PRN (21:08)
--- NOTE | 2018-12-13 21:24 | PN ---
PROGRESS NOTE Patient is seen for followup for acute kidney injury and chronic kidney disease. She was noted to have renal infarcts bilaterally on a CTA done on 12/07/2018. There was much more evidence of the atrophy noted on the right side. The patient does have a history of sticky platelet syndrome diagnosed more than 10 [place] [facility] [place] arterial and venous thrombosis. Currently maintained on anticoagulation. She also has underlying cardiomyopathy with ejection fraction at 20%. On this admission, patient was also found to have a right lower lobe PE and is maintained on aspirin, Plavix. She had been on IV heparin, currently on Xarelto. Serum creatinine has been staying at about 1.3-1.2 mg/dL. This morning it is at 1.29 from 1.4 yesterday. PHYSICAL EXAMINATION: On examination today, blood pressure was 116/68, heart rate 79 per minute. Patient is afebrile. Examination of the heart S1, S2. Examination of the lungs bilateral breath sounds are heard. ABDOMEN: Soft, nontender. There is tenderness noted in the right back area. Examination of lower extremities shows right AKA. No significant edema in the left lower extremity. LABS SHOW: Sodium 134, potassium 4.5, BUN 29, serum creatinine 1.29, hemoglobin 8.3 g/dL. ASSESSMENT: 1. Acute kidney injury with mainly solitary functioning kidney, mostly from the left kidney. There is significant right renal atrophy noted on the CT angiogram on 12/07/2018. I will obtain an ultrasound of the kidneys as well. Currently, patient is nonoliguric. She is maintained on IV fluids. Renal function has improved since yesterday. I will continue the patient on anticoagulation. 2. Sticky platelet syndrome, maintained on anticoagulation. 3. Right lower lobe pulmonary embolism, acute pulmonary embolism, maintained on anticoagulation. 4. Cardiomyopathy with ejection fraction less than 20%. 5. Urinary tract infection with urine culture growing Enterobacter cloacae and Klebsiella pneumonia maintained on antibiotics. PLAN: Continue IV fluids. The patient is currently not on antibiotics as it is a chronic indwelling Joyce catheter. The patient's white count is not elevated. She has been evaluated by urology, currently not being treated for asymptomatic bacteriuria. MMODL / IJN: [id number] /
[2018-12-14] MEDS: SODIUM CHLORIDE 0.9% 1,000 ML IV SCH (02:05)
[2018-12-14] MEDS: HYDROmorphone 0.5 MG/0.5 ML SYRINGE IVP PRN ×3 (02:05→11:01)
[2018-12-14 06:33] LABS: HCT 25.6 % (34.0-46.0); HGB 7.3 gm/dL (11.4-16.0); Hypochromasia Marked; MCH 29.5 pg (25.0-35.0); MCHC 28.5 g/dL (31.0-37.0); MCV 103.6 fL (80.0-100.0); Macrocytosis Moderate; Mean Platelet Volume 6.9; Platelet Count 327 k/uL (150-450); RBC 2.47 m/uL (3.80-5.40); RDW 15.1 % (11.5-15.5)
[2018-12-14] MEDS: RIVAROXABAN 15 MG TAB PO SCH (06:43)
[2018-12-14 06:54] LABS: Calcium 7.7 mg/dL (8.4-10.2)
[2018-12-14] MEDS: CLOPIDOGREL 75 MG TAB PO SCH (08:43)
[2018-12-14] MEDS: ASPIRIN 81 MG PO SCH (08:43)
[2018-12-14] MEDS: traMADol 50 MG TAB PO SCH (08:43)
[2018-12-14 09:50] VITALS: TEMP 97.9
--- NOTE | 2018-12-14 15:17 | P.PN ---
Subjective Progress Note Date: 12/14/18 The patient appears to be voiding. From a urologic standpoint she can be discharged home. She should be seen in the office once for follow-up to determine urinary control and infection. Objective - Vital Signs Vital signs: Vital Signs Temp 97.9 F 12/14/18 08:00 Pulse 82 12/14/18 11:16 Resp 18 12/14/18 11:16 BP 126/82 12/14/18 11:16 Pulse Ox 98 12/14/18 11:16 Intake & Output 12/13/18 12/14/18 12/14/18 18:59 06:59 18:59 Intake Total 240 640 880 Output Total 750 Balance -510 640 880 Weight 43 kg 43 kg Intake: IV 640 0.9 640 Intake, IV Titration 300 Amount Sodium Chloride 0.9% 1, 300 000 ml @ 75 mls/hr IV . [id number] [facility] Rx#:[id number] Oral 240 580 Output: Urine 750 Other: Voiding Method Diaper Diaper Diaper # Voids 1 2 # Bowel Movements 1 - Labs CBC & Chem 7: 12/14/18 06:11 12/14/18 06:11 Labs: Abnormal Lab Results - Last 24 Hours (Table) 12/13/18 12/14/18 12/14/18 Range/Units 16:39 06:11 06:11 RBC 2.47 L (3.80-5.40) m/uL Hgb 7.3 L (11.4-16.0) gm/dL Hct 25.6 L (34.0-46.0) % MCV 103.6 H (80.0-100.0) fL MCHC 28.5 L (31.0-37.0) g/dL Sodium 133 L (137-145) mmol/L Carbon Dioxide 21 L (22-30) mmol/L BUN 32 H (7-17) mg/dL POC Glucose (mg/dL) 112 H (75-99) mg/dL Calcium 7.7 L (8.4-10.2) mg/dL
--- NOTE | 2018-12-14 16:29 | P.DS ---
Providers Date of admission: 12/07/18 01:56 Expected date of discharge: 12/14/18 Attending physician: Porsha Savage MD Consults: 12/07/18 07:55 Consult Physician Routine Consulting Provider: Miguel Reaves Consult Reason/Comments: new PE Do you want consulting provider notified?: Yes 12/09/18 11:20 Consult Physician Urgent Consulting Provider: Jalen Gary Consult Reason/Comments: CHF Do you want consulting provider notified?: Yes 12/12/18 10:16 Consult Physician Urgent Consulting Provider: Christopher Handley Consult Reason/Comments: MOE Do you want consulting provider notified?: Yes 12/12/18 12:08 Consult Physician Routine Consulting Provider: Jim Hodges Consult Reason/Comments: chronic catheter Do you want consulting provider notified?: Yes Primary care physician: Garcia Resendez MD Hospital Course: Discharge Diagnosis: Acute right lower lobe pulmonary embolism and left lower extremity DVT in the setting of sticky platelet syndrome MOE on chronic kidney disease stage III Chronic indwelling Joyce catheter, removed Macrocytic anemia Chronic systolic congestive heart failure with ejection fraction less than 20% and LV thrombus Severe protein calorie malnutrition Hyperkalemia, resolved Hospital Course: Patient is a 48-year-old -[place] female with a past medical history of 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 He was started on a heparin drip and admitted her for further monitoring and care. Hematology was consulted as patient had been on Coumadin but had not been therapeutic. They attempted to contact her outpatient post acute care registered nurse and hand flesher which had her on Coumadin, but were unsuccessful. She was ultimately transitioned to Xarelto she had also failed Lovenox in the past. Cardiology was consulted who recommended continuing her current medications that she has had difficulty tolerating beta blockers and zulma inhibitors in the past secondary to recurrent hypotension. She was seen by nephrology as her kidney function decreased during hospitalization. They recommended discontinuing Bactrim started IV fluids. She was seen by urology as she had a chronic indwelling Joyce catheter placed on admission is concern for urinary tract infection. Urology felt like this was contamination and not ambulatory service representative of true infection. They recommended voiding trial to see if she could discontinue her Joyce catheter, her cath was successfully discontinued. Her Cr returned to her baseline of 1 and she was determined stable for discharge. She will follow with Dr. Gary, Dr. Handley, her PCP, and her hand flesher. She was consuled on the improtance of taking her xarelto. She was also told to keep healed left leg wound covered and apply medihoney once daily. Patient seen and examined at bedside. Feeling tired did not sleep last night. Was on Remeron at home and needs a new Rx. No nausea or vomiting. No other complaints. Discussed keeping wound covered and improtance of taking medications as directed. Vital signs reviewed and stable. 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, progression of the right renal abnormality on the patchy areas of decreased cortical enhancement in the left kidney, somewhat collateral vessels in the pelvis with arterial flow seen in the left and right inguinal region Patient Condition at Discharge: Stable Plan - Discharge Summary Discharge Rx Participant: Yes New Discharge Prescriptions: New Rivaroxaban [Xarelto Starter Pack] 1 each PO DIRECTED #1 pkg Miconazole Nitrate 4%/2% [Monistat 3 Vaginal] 1 each VAGINAL HS #1 kit Mirtazapine [Remeron] 15 mg PO HS #15 tab traMADol HCl [Ultram] 50 mg PO TID PRN #9 tab PRN Reason: Pain Rivaroxaban [Xarelto Starter Pack] 1 each PO DIRECTED #1 package Continue Aspirin EC [Ecotrin Low Dose] 81 mg PO DAILY Clopidogrel Bisulfate [Plavix] 75 mg PO DAILY Discontinued Warfarin [Coumadin] 3 mg PO DAILY Discharge Medication List Aspirin EC [Ecotrin Low Dose] 81 mg PO DAILY 10/26/18 [History] Clopidogrel Bisulfate [Plavix] 75 mg PO DAILY 12/06/18 [History] Rivaroxaban [Xarelto Starter Pack] 1 each PO DIRECTED #1 pkg 12/09/18 [Rx] Miconazole Nitrate 4%/2% [Monistat 3 Vaginal] 1 each VAGINAL HS #1 kit 12/14/18 [Rx] Mirtazapine [Remeron] 15 mg PO HS #15 tab 12/14/18 [Rx] Rivaroxaban [Xarelto Starter Pack] 1 each PO DIRECTED #1 package 12/14/18 [Rx ] traMADol HCl [Ultram] 50 mg PO TID PRN #9 tab 12/14/18 [Rx] Follow up Appointment(s)/Referral(s): Jalen Gary MD [STAFF PHYSICIAN] - 12/27/18 3:45 pm [facility], [NON-STAFF] - 1-2 Days Garcia Resendez MD [Primary Care Provider] - 1-2 Days (Please call for follow up appointment.) Leobardo Jones MD [STAFF PHYSICIAN] - 12/29/18 2:15 pm Christopher Handley DO [STAFF PHYSICIAN] - 12/24/18 9:00 am Patient Instructions/Handouts: Pulmonary Embolism (DC), Deep Vein Thrombosis ( DC), Anemia (DC), Safe Use of Anticoagulants (DC) Activity/Diet/Wound Care/Special Instructions: Pt would like dc rx at discharge. Follow with your hand flesher in 1-2 weeks Regular diet activity as tolerated Off load leg wound and keep covered with medahoney and dressing change daily Discharge Disposition: HOME SELF-CARE
[2018-12-14 18:16] VITALS: BP 136/65; PULSE 84
--- NOTE | 2018-12-14 22:49 | PN ---
PROGRESS NOTE Patient is seen for followup for acute kidney injury. She has a sticky platelet syndrome and was admitted with PE and acute kidney injury. Renal function has improved with IV fluids. Creatinine is down to 0.9. Patient will be discharged today. PHYSICAL EXAMINATION: Blood pressure was 126/82, heart rate 82 per minute. She is afebrile. Examination of the heart S1, S2. Examination lungs bilateral breath sounds are heard. Abdomen is soft, nontender. Exam of lower extremities shows right AKA and left BKA. No edema is noted. LAB: Show sodium 133, potassium 4.0, BUN 32, serum creatinine 0.9, hemoglobin 7.3 g/dL. ASSESSMENT: 1. Acute kidney injury, prerenal, currently improved with mainly solitary functioning kidney, which is mainly the left kidney. Patient does have significant right renal atrophy noted on the CT angiogram done on 12/07/2018. 2. Sticky platelet syndrome, maintained on anticoagulation. 3. Right lower lobe pulmonary embolism, maintained on anticoagulation. 4. Cardiomyopathy, ejection fraction less than 20%. 5. Asymptomatic bacteriuria in a patient with chronic indwelling Joyce catheter. Continue off of antibiotics. MMODL / IJN: [id number] /
== END 2018-12-14 18:46 | disposition home health service (06) | DRG 175 ==
LOC: EC 21:28 → 2SICU 12-07 01:56 → 3SCARD 12-11 18:50
PROVIDERS: ADMIT Internal Medicine; ATTEND Internal Medicine
DX: I26.99 Other pulmonary embolism without acute cor pulmonale (principal); E43 Unspecified severe protein-calorie malnutrition; T83.511A Infection and inflammatory reaction due to indwelling urethral catheter, initial encounter; I82.422 Acute embolism and thrombosis of left iliac vein; I82.432 Acute embolism and thrombosis of left popliteal vein; I82.412 Acute embolism and thrombosis of left femoral vein; N39.0 Urinary tract infection, site not specified; I82.3 Embolism and thrombosis of renal vein; I50.22 Chronic systolic (congestive) heart failure; N28.0 Ischemia and infarction of kidney; I42.9 Cardiomyopathy, unspecified; N17.9 Acute kidney failure, unspecified; D68.59 Other primary thrombophilia; T82.898A Other specified complication of vascular prosthetic devices, implants and grafts, initial encounter; L89.159 Pressure ulcer of sacral region, unspecified stage; N18.3 Chronic kidney disease, stage 3 (moderate); I95.9 Hypotension, unspecified; D69.1 Qualitative platelet defects; I74.10 Embolism and thrombosis of unspecified parts of aorta; I51.3 Intracardiac thrombosis, not elsewhere classified; E87.5 Hyperkalemia; E87.6 Hypokalemia; B96.1 Klebsiella pneumoniae [K. pneumoniae] as the cause of diseases classified elsewhere; B96.89 Other specified bacterial agents as the cause of diseases classified elsewhere; J45.909 Unspecified asthma, uncomplicated; N14.1 Nephropathy induced by other drugs, medicaments and biological substances; T50.8X5A Adverse effect of diagnostic agents, initial encounter; T37.0X5A Adverse effect of sulfonamides, initial encounter; D53.9 Nutritional anemia, unspecified; I25.10 Atherosclerotic heart disease of native coronary artery without angina pectoris; M19.90 Unspecified osteoarthritis, unspecified site; M54.6 Pain in thoracic spine; I73.9 Peripheral vascular disease, unspecified; Z79.82 Long term (current) use of aspirin; Z79.02 Long term (current) use of antithrombotics/antiplatelets; Z79.01 Long term (current) use of anticoagulants; Z86.718 Personal history of other venous thrombosis and embolism; Z89.512 Acquired absence of left leg below knee; Z89.611 Acquired absence of right leg above knee; Z86.711 Personal history of pulmonary embolism; Z86.19 Personal history of other infectious and parasitic diseases; Z90.49 Acquired absence of other specified parts of digestive tract; Z95.1 Presence of aortocoronary bypass graft; Z87.891 Personal history of nicotine dependence; Z86.59 Personal history of other mental and behavioral disorders; Z87.440 Personal history of urinary (tract) infections; Z91.81 History of falling; Z86.73 Personal history of transient ischemic attack (TIA), and cerebral infarction without residual deficits; Z88.8 Allergy status to other drugs, medicaments and biological substances; Z82.1 Family history of blindness and visual loss; Z82.0 Family history of epilepsy and other diseases of the nervous system; Z83.518 Family history of other specified eye disorder; Y84.6 Urinary catheterization as the cause of abnormal reaction of the patient, or of later complication, without mention of misadventure at the time of the procedure; Y83.2 Surgical operation with anastomosis, bypass or graft as the cause of abnormal reaction of the patient, or of later complication, without mention of misadventure at the time of the procedure; Y92.009 Unspecified place in unspecified non-institutional (private) residence as the place of occurrence of the external cause
CPT/HCPCS: 36415; 71046; 71275; 74174; 80048; 80053; 81001; 82150; 82533; 82550; 82553; 82607; 82746; 83690; 83735; 83880; 83883; 84100; 84132; 84165; 84443; 84484; 85025; 85027; 85610; 85730; 86334; 87077; 87086; 87186; 93005; 93306; 93970; 96365; 96366; 96368; 96375; 96376; 99291

== ENCOUNTER 2018-12-27 17:14 | Observation (INO) | payer MEDICARE, OTHER ==
[2018-12-27] MEDS ORDERED: HYDROmorphone 1 MG/ML 1 ML SYRINGE IVP STA ×2 (17:45→20:26)
[2018-12-27] MEDS ORDERED: ONDANSETRON 4 MG/2 ML VIAL IVP STA (17:45)
--- NOTE | 2018-12-27 17:50 | ED ---
General Adult HPI - General Chief complaint: Chest Pain Stated complaint: Chest Pain Time Seen by Provider: 12/27/18 17:15 Source: patient, RN notes reviewed Mode of arrival: wheelchair Limitations: no limitations - History of Present Illness Initial comments: This is a 48-year-old female presents emergency Department with a past medical history significant for significant platelets syndrome. Patient has had agitation of the right leg above the knee in the left leg below the knee. Patient states she's also multiple pulmonary embolisms and multiple clots elsewhere. Patient states she is on Xarelto and Plavix. Patient states she has been having chest pain last day. Patient also states she has some shortness of breath. Patient went to see Dr. Abdirahman Gary wanted the patient to be seen in emergency department. Patient denies any fever chills or cough. Patient denies any abdominal pain. Patient denies any nausea vomiting. Patient states she does have some lower back pain which is chronic. - Related Data Home Medications Medication Instructions Recorded Confirmed Aspirin EC [Ecotrin Low Dose] 81 mg PO DAILY 10/26/18 12/27/18 Clopidogrel Bisulfate [Plavix] 75 mg PO DAILY 12/06/18 12/27/18 Atorvastatin [Lipitor] 40 mg PO HS 12/27/18 12/27/18 Cyclobenzaprine [Flexeril] 10 mg PO TID PRN 12/27/18 12/27/18 HYDROmorphone HCL [Dilaudid] 8 mg PO Q4H PRN 12/27/18 12/27/18 Morphine Sulfate ER [Ms Contin] 100 mg PO Q12H 12/27/18 12/27/18 Pantoprazole [Protonix] 40 mg PO DAILY 12/27/18 12/27/18 Rivaroxaban [Xarelto] 15 mg PO BID 12/27/18 12/27/18 Sucralfate [Carafate] 1 gm PO ACHS PRN 12/27/18 12/27/18 Torsemide [Demadex] 20 mg PO DAILY 12/27/18 12/27/18 Previous Rx's Medication Instructions Recorded Mirtazapine [Remeron] 15 mg PO HS #15 tab 12/14/18 Allergies Allergy/AdvReac Type Severity Reaction Status Date / Time ibuprofen Allergy Unknown Verified 12/27/18 17:49 trazodone Allergy Chest Pain Verified 12/27/18 17:49 Review of Systems ROS Statement: Those systems with pertinent positive or pertinent negative responses have been documented in the HPI. ROS Other: All systems not noted in ROS Statement are negative. Past Medical History Past Medical History: Asthma, Heart Failure, CVA/TIA, Deep Vein Thrombosis (DVT) , Osteoarthritis (OA), Pulmonary Embolus (PE), Renal Disease Additional Past Medical History / Comment(s): sticky platelet syndrome, bronchitis, anx/depression, falls History of Any Multi-Drug Resistant Organisms: ESBL Date of last positivie culture/infection: 10/15/18 ESBL MDRO Source:: Urine Past Surgical History: Cholecystectomy, Coronary Bypass/CABG Additional Past Surgical History / Comment(s): ltBKA, left lower leg, aortic bypass right leg, right leg fasciotomy.pt stated had another vascular sx after the fasciotomy at [facility] unclear as to exactly what was done Rt BKA Past Anesthesia/Blood Transfusion Reactions: No Reported Reaction Additional Past Anesthesia/Blood Transfusion Reaction / Comment(s): pt stated has had a blood transfusion in past-no reaction Past Psychological History: Anxiety, Depression Smoking Status: Former smoker Past Alcohol Use History: None Reported Past Drug Use History: None Reported - Past Family History Mother Additional Family Medical History / Comment(s): MS, legally blind, cataracts Father Additional Family Medical History / Comment(s): Was younger when he , car accident General Exam - General Exam Comments Initial Comments: GENERAL: Patient is well-developed and well-nourished. Patient is nontoxic and well- hydrated and is in mild distress. ENT: Neck is soft and supple. No significant lymphadenopathy is noted. Oropharynx is clear. Moist mucous membranes. Neck has full range of motion without eliciting any pain. EYES: The sclera were anicteric and conjunctiva were pink and moist. Extraocular movements were intact and pupils were equal round and reactive to light. Eyelids were unremarkable. PULMONARY: Unlabored respirations. Good breath sounds bilaterally. No audible rales rhonchi or wheezing was noted. CARDIOVASCULAR: There is a regular rate and rhythm without any murmurs gallops or rubs. ABDOMEN: Soft and nontender with normal bowel sounds. No palpable organomegaly was noted. There is no palpable pulsatile mass. SKIN: Skin is clear with no lesions or rashes and otherwise unremarkable. NEUROLOGIC: Patient is alert and oriented x3. Cranial nerves II through XII are grossly intact. Motor and sensory are also intact. Normal speech, volume and content. Symmetrical smile. MUSCULOSKELETAL: Patient has an AKA on the right and a BKA on the left LYMPHATICS: No significant lymphadenopathy is noted PSYCHIATRIC: Normal psychiatric evaluation. Limitations: no limitations Course Vital Signs 12/27/18 12/27/18 12/27/18 17:16 17:32 18:46 Temperature 98.3 F Pulse Rate 106 H 95 Pulse Rate [ 108 H Bilateral Endoscopy Tech ] Respiratory 18 18 Rate Blood Pressure 127/89 134/97 O2 Sat by Pulse 100 100 Oximetry 12/27/18 19:00 Temperature Pulse Rate 76 Pulse Rate [ Bilateral Endoscopy Tech ] Respiratory 22 Rate Blood Pressure 133/79 O2 Sat by Pulse 97 Oximetry Medical Decision Making - Medical Decision Making EKG shows sinus tachycardia at 101 bpm WV interval 138 QRS is 72 QT interval 360 QTC is 477. Patient's EKG shows no ST segment elevation or depression or T wave abnormalities are noted. Patient's CT of the chest shows no pulmonary embolism. I spoke with Dr. Flannery's nurse practitioner she agreed to admit the patient admitted the patient wrote admitting orders. - Lab Data Result diagrams: 12/27/18 17:45 12/27/18 17:45 Lab Results 12/27/18 12/27/18 12/27/18 Range/Units 17:45 17:45 17:45 WBC 4.5 (3.8-10.6) k/uL RBC 4.04 (3.80-5.40) m/uL Hgb 12.8 D (11.4-16.0) gm/dL Hct 41.2 (34.0-46.0) % MCV 102.0 H (80.0-100.0) fL MCH 31.5 (25.0-35.0) pg MCHC 30.9 L (31.0-37.0) g/dL RDW 14.9 (11.5-15.5) % Plt Count 516 H (150-450) k/uL Neutrophils % 64 % Lymphocytes % 26 % Monocytes % 5 % Eosinophils % 3 % Basophils % 1 % Neutrophils # 2.9 (1.3-7.7) k/uL Lymphocytes # 1.2 (1.0-4.8) k/uL Monocytes # 0.2 (0-1.0) k/uL Eosinophils # 0.1 (0-0.7) k/uL Basophils # 0.0 (0-0.2) k/uL Hypochromasia Slight Macrocytosis Slight PT (9.0-12.0) sec INR (<1.2) APTT (22.0-30.0) sec D-Dimer (<0.60) mg/L FEU Sodium 136 L (137-145) mmol/L Potassium 3.9 (3.5-5.1) mmol/L Chloride 97 L (98-107) mmol/L Carbon Dioxide 29 (22-30) mmol/L Anion Gap 10 mmol/L BUN 36 H (7-17) mg/dL Creatinine 0.99 (0.52-1.04) mg/dL Est GFR (CKD-EPI)AfAm 77 (>60 ml/min/1.73 sqM) Est GFR (CKD-EPI)NonAf 67 (>60 ml/min/1.73 sqM) Glucose 84 (74-99) mg/dL Calcium 9.1 (8.4-10.2) mg/dL Magnesium 1.8 (1.6-2.3) mg/dL Total Bilirubin 0.7 (0.2-1.3) mg/dL AST 64 H (14-36) U/L ALT 71 H (9-52) U/L Alkaline Phosphatase 171 H (38-126) U/L Total Creatine Kinase 31 (30-135) U/L CK-MB (CK-2) 1.6 (0.0-2.4) ng/mL CK-MB (CK-2) Rel Index 5.2 Troponin I <0.012 (0.000-0.034) ng/mL Total Protein 8.4 H (6.3-8.2) g/dL Albumin 3.8 (3.5-5.0) g/dL 12/27/18 Range/Units 17:45 WBC (3.8-10.6) k/uL RBC (3.80-5.40) m/uL Hgb (11.4-16.0) gm/dL Hct (34.0-46.0) % MCV (80.0-100.0) fL MCH (25.0-35.0) pg MCHC (31.0-37.0) g/dL RDW (11.5-15.5) % Plt Count (150-450) k/uL Neutrophils % % Lymphocytes % % Monocytes % % Eosinophils % % Basophils % % Neutrophils # (1.3-7.7) k/uL Lymphocytes # (1.0-4.8) k/uL Monocytes # (0-1.0) k/uL Eosinophils # (0-0.7) k/uL Basophils # (0-0.2) k/uL Hypochromasia Macrocytosis PT 15.3 H (9.0-12.0) sec INR 1.5 H (<1.2) APTT 40.8 H (22.0-30.0) sec D-Dimer 0.45 (<0.60) mg/L FEU Sodium (137-145) mmol/L Potassium (3.5-5.1) mmol/L Chloride (98-107) mmol/L Carbon Dioxide (22-30) mmol/L Anion Gap mmol/L BUN (7-17) mg/dL Creatinine (0.52-1.04) mg/dL Est GFR (CKD-EPI)AfAm (>60 ml/min/1.73 sqM) Est GFR (CKD-EPI)NonAf (>60 ml/min/1.73 sqM) Glucose (74-99) mg/dL Calcium (8.4-10.2) mg/dL Magnesium (1.6-2.3) mg/dL Total Bilirubin (0.2-1.3) mg/dL AST (14-36) U/L ALT (9-52) U/L Alkaline Phosphatase (38-126) U/L Total Creatine Kinase (30-135) U/L CK-MB (CK-2) (0.0-2.4) ng/mL CK-MB (CK-2) Rel Index Troponin I (0.000-0.034) ng/mL Total Protein (6.3-8.2) g/dL Albumin (3.5-5.0) g/dL Disposition Clinical Impression: Chest pain Disposition: ADMITTED IP TO THIS [facility] Referrals: Garcia Resendez MD [Primary Care Provider] - 1-2 days Time of Disposition: 20:42
[2018-12-27 18:07] LABS: Basophils % (A) 1 %; Eosinophils # (A) 0.1 k/uL (0-0.7); Eosinophils % (A) 3 %; HCT 41.2 % (34.0-46.0); Hypochromasia Slight; Lymphocytes # (A) 1.2 k/uL (1.0-4.8); Lymphocytes % (A) 26 %; MCH 31.5 pg (25.0-35.0); MCHC 30.9 g/dL (31.0-37.0); Macrocytosis Slight; Mean Platelet Volume 6.2; Monocytes # (A) 0.2 k/uL (0-1.0); Monocytes % (A) 5 %; Neutrophils # (A) 2.9 k/uL (1.3-7.7); Neutrophils % (A) 64 %; Platelet Count 516 k/uL (150-450); RBC 4.04 m/uL (3.80-5.40); RDW 14.9 % (11.5-15.5); WBC 4.5 k/uL (3.8-10.6)
[2018-12-27 18:08] LABS: HGB 12.8 gm/dL (11.4-16.0)
[2018-12-27 18:15] LABS: Albumin 3.8 g/dL (3.5-5.0); Calcium 9.1 mg/dL (8.4-10.2); Magnesium 1.8 mg/dL (1.6-2.3); Potassium 3.9 mmol/L (3.5-5.1); Total Bilirubin 0.7 mg/dL (0.2-1.3); Total Protein 8.4 g/dL (6.3-8.2)
[2018-12-27 18:18] LABS: Creatine Kinase 31 U/L (30-135)
[2018-12-27 18:31] LABS: Creatine Kinase MB 1.6 ng/mL (0.0-2.4); Troponin I <0.012 ng/mL (0.000-0.034)
[2018-12-27 18:41] LABS: D-Dimer 0.45 mg/L FEU (<0.60); INR 1.5 (<1.2); Partial Thromboplastin Time 40.8 sec (22.0-30.0); Prothrombin Time 15.3 sec (9.0-12.0)
[2018-12-27] MEDS ORDERED: SODIUM CHLORIDE 0.9% 500 ML 500 ML IV ONE (19:18)
--- NOTE | 2018-12-27 20:38 | CT ---
EXAMINATION TYPE: CT chest angio for PE DATE OF EXAM: 12/27/2018 COMPARISON: None HISTORY: Pt has chest pain, SOB. Hx PE DVT. CVA/TIA, asthma, heart failure CT DLP: 168.4 mGycm Automated exposure control for dose reduction was used. CONTRAST: CT Chest for pulmonary embolism performed with with IV Contrast, patient injected with 100 mL of Isov ue 370. FINDINGS: There are 3-D post processed images. The lungs are clear of consolidation. There is no evidence of a pulmonary mass. There is no pleural e ffusion. Heart size is normal. There is no pericardial effusion. There is normal contrast opacificati on of the pulmonary arteries. There are no filling defects. There are no hilar masses. There is no ev idence of thoracic aortic aneurysm or dissection. There is no mediastinal adenopathy. The bony thorax is intact. There are multiple surgical clips at the stomach. IMPRESSION: Negative exam. No evidence of pulmonary embolism.
[2018-12-27] MEDS ORDERED: NITROGLYCERIN SL TABS 0.4 MG TAB SUBLINGUAL PRN (20:43)
[2018-12-27] MEDS ORDERED: HYDROmorphone 4 MG TABLET PO PRN (20:45)
[2018-12-27] MEDS ORDERED: MIRTAZAPINE 15 MG TAB PO SCH (21:00)
[2018-12-27] MEDS ORDERED: CYCLOBENZAPRINE 10 MG TAB PO PRN (21:54)
[2018-12-27] MEDS ORDERED: SUCRALFATE 1 GM TAB PO PRN (22:00)
[2018-12-27] MEDS: RIVAROXABAN 15 MG TAB PO SCH (23:56)
[2018-12-28] MEDS: NITROGLYCERIN OINT 1 INCH/GM PACKET TOPICAL SCH ×3 (00:14→12:30)
[2018-12-28] MEDS: MORPHINE SULFATE ER 100 MG TABLET PO SCH ×2 (00:18→10:09)
[2018-12-28 02:37] LABS: Cholesterol 133 mg/dL (<200); HDL Cholesterol 56 mg/dL (40-60); LDL Cholesterol,Calculated 55 mg/dL (0-99); Triglycerides 111 mg/dL (<150)
[2018-12-28 02:48] LABS: Creatine Kinase MB 1.7 ng/mL (0.0-2.4); Troponin I 0.012 ng/mL (0.000-0.034)
[2018-12-28 07:10] LABS: Creatine Kinase 21 U/L (30-135)
[2018-12-28 07:23] LABS: Creatine Kinase MB 1.8 ng/mL (0.0-2.4); Troponin I <0.012 ng/mL (0.000-0.034)
[2018-12-28 07:32] VITALS: RESP 18
[2018-12-28] MEDS ORDERED: TORSEMIDE 20 MG TAB PO SCH (09:00)
[2018-12-28] MEDS ORDERED: ASPIRIN 325 MG TAB PO SCH (09:00)
[2018-12-28] MEDS ORDERED: CLOPIDOGREL 75 MG TAB PO SCH (09:00)
[2018-12-28] MEDS ORDERED: ASPIRIN 81 MG PO SCH (09:00)
[2018-12-28] MEDS ORDERED: PANTOPRAZOLE 40 MG TABLET PO SCH (09:00)
[2018-12-28] MEDS: RIVAROXABAN 15 MG TAB PO SCH (09:40)
--- NOTE | 2018-12-28 10:11 | P.PN ---
Subjective This is a pleasant 48-year-old -[place] female past medical history significant for sick platelets syndrome, frequent PEs and DVTs, bilateral lower extremity palpitations, CVA and cardiomyopathy. She was [facility] the [facility] per Dr. Gary yesterday secondary to significant chest discomfort. EKG on arrival reveals sinus tachycardia heart rate [address] or T wave abnormalities noted. Cardiac enzymes negative 3, WBC 4.5 hemoglobin 12.8, platelets 516, d-dimer 0.45, INR 1.5, sodium 136, potassium 3.9 , creatinine 0.99, magnesium 1.8, LDL 55 and HDL 56. Currently maintained on aspirin 81 mg daily, atorvastatin 40 mg daily, plavix 75 mg daily, xarelto 15 mg BID and demadex 20 mg daily. She is seen and examined sitting up in bed in no acute distress. She complains of generalized pain all over mostly in the lower back and across the chest. She is chronically on MS contin and dilaudid at home for chronic pain. Blood pressure 114/72 heart rate 80. GENERAL: Well-appearing, well-nourished and in no acute distress. NECK: Supple without JVD or thyromegaly. LUNGS: Breath sounds clear to auscultation bilaterally. Respiration equal and unlabored. No wheezes, rales or rhonchi. Diminished bilaterally. HEART: Regular rate and rhythm without murmurs, rubs or gallops. S1 and S2 heard. EXTREMITIES: Normal range of motion, bilateral AKA. ASSESSMENT Chest pain, atypical for angina. An acute event has been ruled out. 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 CTA negative for new PE. Continue with aspirin, plavix and xarelto. Stable for discharge from a cardiac perspective. Follow up in the office in [address] Gary. Nurse Practitioner note has been reviewed, I agree with a documented findings and plan of care. Patient was seen and examined. Objective - Vital Signs Vital signs: Vital Signs Temp 98.4 F 12/28/18 07:20 Pulse 80 12/28/18 07:20 Resp 18 12/28/18 07:20 BP 114/72 12/28/18 07:20 Pulse Ox 99 12/28/18 08:24 Intake & Output 12/27/18 12/28/18 12/28/18 18:59 06:59 18:59 Output Total 1 Balance -1 Weight 42.638 kg Output: Urine 1 Other: Voiding Method Toilet Toilet # Voids 1 - Labs CBC & Chem 7: 12/27/18 17:45 12/27/18 17:45 Labs: Abnormal Lab Results - Last 24 Hours (Table) 12/27/18 12/27/18 12/27/18 Range/Units 17:45 17:45 17:45 MCV 102.0 H (80.0-100.0) fL MCHC 30.9 L (31.0-37.0) g/dL Plt Count 516 H (150-450) k/uL PT 15.3 H (9.0-12.0) sec INR 1.5 H (<1.2) APTT 40.8 H (22.0-30.0) sec Sodium 136 L (137-145) mmol/L Chloride 97 L (98-107) mmol/L BUN 36 H (7-17) mg/dL AST 64 H (14-36) U/L ALT 71 H (9-52) U/L Alkaline Phosphatase 171 H (38-126) U/L Total Creatine Kinase (30-135) U/L Total Protein 8.4 H (6.3-8.2) g/dL 12/28/18 12/28/18 Range/Units 01:40 06:05 MCV (80.0-100.0) fL MCHC (31.0-37.0) g/dL Plt Count (150-450) k/uL PT (9.0-12.0) sec INR (<1.2) APTT (22.0-30.0) sec Sodium (137-145) mmol/L Chloride (98-107) mmol/L BUN (7-17) mg/dL AST (14-36) U/L ALT (9-52) U/L Alkaline Phosphatase (38-126) U/L Total Creatine Kinase 25 L 21 L (30-135) U/L Total Protein (6.3-8.2) g/dL
[2018-12-28 14:34] VITALS: BMI 18.3
[2018-12-28 15:44] VITALS: BP 129/82; PULSE 86; TEMP 97.7
--- NOTE | 2018-12-28 17:32 | P.HPIM ---
History of Present Illness Combined H&P and discharge summary This is a pleasant 48 years old female with past medical history of congestive heart failure, coronary artery disease status post CABG, asthma, CVA/TIA, DVT and pulmonary embolism on xeralto, hyperlipidemia. Who presents because of chest discomfort, she said she had chest pain about 7/10 radiating from the central the chest back to her back and her bouts, held by pain medication and increased by movement, and Genia sharp by the patient, associated with little dyspnea and nausea as per patient however no change in her bowel movement. Patient states she is bedbound since March 2018 because she has bilateral amputation. She has stable vitals. CBC was unremarkable except for mildly elevated platelets, INR 1.5, sodium 136, creatinine 0.9, liver enzymes are mildly elevated, she underwent CT angiography thorax: No evidence of pulmonary embolus or mass, no thoracic aortic dissection or aneurysm. Patient was treated symptomatically and IV fluids, Patient has been evaluated by ditching machine operator and she had done EKG unremarkable for ST-T changes and she has serial negative troponins. Api Architect evaluated the patient and cleared her for discharge. Patient also has negative CTPA for pulmonary embolism. Patient showed interval improvement, although she has some pain. Patient was asked specifically about pain medication because she doesn't have a PCP anymore. We suggested [facility] PCP for her which she agrees to follow up with Dr. Orellana as an outpatient, he said she is going to call to make appointment in 1-2 days. Also patient was asking to provide her with pain medication. On the hospital she has listed home medication as morphine extended -release 100 mg twice a day and Dilaudid 8 mg orally every 4 hours as needed.. Patient was asking for pain medication without specification. When I checked [facility] looks like last time she had Dilaudid prescribed for her was on 10/13/2018 with quantity 17 tablets and morphine sulfate on the same day as 15 tablets. Also she has prescription on of 12/14/2018 of 90 tablets of tramadol 50 mg prescribed to her. I offered to give her prescription for tramadol for 2 days still she finds her PCP and she agrees. Problems and management plan was discussed with the patient and she verbalized understanding and acceptance. As stated above cardiology cleared the patient for discharge. Patient was found stable and can be discharged in stable condition however she needs follow-up as an outpatient Gen: patient is a AAOx3, no distress CVS: S1-S2, RRR, no murmur Lungs: B/L CTA, no wheezing Abdomen: soft, no distention, no tenderness, positive bowel sounds Extremity: Bilateral leg amputation Time spent more than 35 minutes Past Medical History Past Medical History: Asthma, Heart Failure, CVA/TIA, Deep Vein Thrombosis (DVT) , Osteoarthritis (OA), Pulmonary Embolus (PE) Additional Past Medical History / Comment(s): sticky platelet syndrome, bronchitis, anx/depression, falls History of Any Multi-Drug Resistant Organisms: ESBL Date of last positivie culture/infection: 10/15/18 ESBL MDRO Source:: Urine Past Surgical History: Cholecystectomy, Coronary Bypass/CABG Additional Past Surgical History / Comment(s): ltBKA, left lower leg, aortic bypass right leg, right leg fasciotomy.pt stated had another vascular sx after the fasciotomy at [facility] unclear as to exactly what was done Rt BKA Past Anesthesia/Blood Transfusion Reactions: No Reported Reaction Additional Past Anesthesia/Blood Transfusion Reaction / Comment(s): pt stated has had a blood transfusion in past-no reaction. Past Psychological History: Anxiety, Depression Additional Psychological History / Comment(s): Is cared for by her mother and of private residence, denies depression at this time. That a current tobacco smoker. No animal exposures Smoking Status: Former smoker Past Alcohol Use History: None Reported Additional Past Alcohol Use History / Comment(s): started smoking at age 22; quit 2018 was smoking 1/2ppd. Past Drug Use History: None Reported - Past Family History Mother History Unknown: Yes Additional Family Medical History / Comment(s): MS, legally blind, cataracts Father Family Medical History: No Reported History Additional Family Medical History / Comment(s): Was younger when he , car accident Medications and Allergies Home Medications Medication Instructions Recorded Confirmed Type Aspirin EC [Ecotrin Low Dose] 81 mg PO DAILY 10/26/18 12/27/18 History Clopidogrel Bisulfate [Plavix] 75 mg PO DAILY 12/06/18 12/27/18 History Mirtazapine [Remeron] 15 mg PO HS #15 tab 12/14/18 12/27/18 Rx Atorvastatin [Lipitor] 40 mg PO HS 12/27/18 12/27/18 History Cyclobenzaprine [Flexeril] 10 mg PO TID PRN 12/27/18 12/27/18 History HYDROmorphone HCL [Dilaudid] 8 mg PO Q4H PRN 12/27/18 12/27/18 History Morphine Sulfate ER [Ms Contin] 100 mg PO Q12H 12/27/18 12/27/18 History Pantoprazole [Protonix] 40 mg PO DAILY 12/27/18 12/27/18 History Rivaroxaban [Xarelto] 15 mg PO BID 12/27/18 12/27/18 History Sucralfate [Carafate] 1 gm PO ACHS PRN 12/27/18 12/27/18 History Torsemide [Demadex] 20 mg PO DAILY 12/27/18 12/27/18 History Allergies Allergy/AdvReac Type Severity Reaction Status Date / Time ibuprofen Allergy Unknown Verified 12/27/18 17:49 trazodone Allergy Chest Pain Verified 12/27/18 17:49 Physical Exam Vitals: Vital Signs Temp Pulse Pulse Pulse Resp BP BP 12/28/18 15:43 97.7 F 86 18 129/82 12/28/18 12:00 97.4 F L 82 18 121/82 12/28/18 08:24 12/28/18 07:20 98.4 F 80 18 114/72 12/28/18 03:57 98.5 F 88 16 122/77 12/28/18 03:27 88 16 12/27/18 23:46 97.5 F L 96 16 137/87 12/27/18 22:28 17 12/27/18 22:00 89 18 12/27/18 21:50 97.6 F 78 16 146/91 12/27/18 21:40 98.3 F 77 18 139/74 12/27/18 19:00 76 22 133/79 12/27/18 18:46 95 18 134/97 12/27/18 17:32 108 H 12/27/18 17:16 98.3 F 106 H 18 127/89 Pulse Ox 12/28/18 15:43 99 12/28/18 12:00 100 12/28/18 08:24 99 12/28/18 07:20 100 12/28/18 03:57 100 12/28/18 03:27 12/27/18 23:46 100 12/27/18 22:28 12/27/18 22:00 12/27/18 21:50 100 12/27/18 21:40 97 12/27/18 19:00 97 12/27/18 18:46 100 12/27/18 17:32 12/27/18 17:16 100 Intake and Output 12/28/18 12/28/18 12/28/18 06:59 14:59 22:59 Intake Total 580 Output Total 1 Balance -1 580 Intake: Oral 480 Other 100 Output: Urine 1 Other: Voiding Method Toilet Toilet # Voids 1 1 Weight 42.638 kg Results CBC & Chem 7: 12/27/18 17:45 12/27/18 17:45 Labs: Abnormal Lab Results - Last 24 Hours (Table) 12/27/18 12/27/18 12/27/18 Range/Units 17:45 17:45 17:45 MCV 102.0 H (80.0-100.0) fL MCHC 30.9 L (31.0-37.0) g/dL Plt Count 516 H (150-450) k/uL PT 15.3 H (9.0-12.0) sec INR 1.5 H (<1.2) APTT 40.8 H (22.0-30.0) sec Sodium 136 L (137-145) mmol/L Chloride 97 L (98-107) mmol/L BUN 36 H (7-17) mg/dL AST 64 H (14-36) U/L ALT 71 H (9-52) U/L Alkaline Phosphatase 171 H (38-126) U/L Total Creatine Kinase (30-135) U/L Total Protein 8.4 H (6.3-8.2) g/dL 12/28/18 12/28/18 Range/Units 01:40 06:05 MCV (80.0-100.0) fL MCHC (31.0-37.0) g/dL Plt Count (150-450) k/uL PT (9.0-12.0) sec INR (<1.2) APTT (22.0-30.0) sec Sodium (137-145) mmol/L Chloride (98-107) mmol/L BUN (7-17) mg/dL AST (14-36) U/L ALT (9-52) U/L Alkaline Phosphatase (38-126) U/L Total Creatine Kinase 25 L 21 L (30-135) U/L Total Protein (6.3-8.2) g/dL Thrombosis Risk Factor Assmnt - Choose All That Apply Each Factor Represents 1 point: Age 41-60 years Other Risk Factors: Yes Each Risk Factor Represents 3 Points: History of DVT/PE Other congenital or acquired thrombophilia - If yes, enter type in comment: Yes ("sticky platelet syndrome.") Thrombosis Risk Factor Assessment Total Risk Factor Score: 4 Thrombosis Risk Factor Assessment Level: Moderate Risk
[2018-12-28] MEDS ORDERED: ATORVASTATIN 40 MG TAB PO SCH (21:00)
== END 2018-12-28 18:45 | disposition home or self-care (01) ==
LOC: EC 17:14 → 1SOBS 20:42
PROVIDERS: ADMIT Hospitalist; ATTEND Hospitalist
DX: R07.89 Other chest pain (principal); G89.29 Other chronic pain; E78.5 Hyperlipidemia, unspecified; F32.9 Major depressive disorder, single episode, unspecified; F41.9 Anxiety disorder, unspecified; I50.22 Chronic systolic (congestive) heart failure; I25.10 Atherosclerotic heart disease of native coronary artery without angina pectoris; I42.9 Cardiomyopathy, unspecified; J45.909 Unspecified asthma, uncomplicated; D69.1 Qualitative platelet defects; Z74.01 Bed confinement status; Z95.1 Presence of aortocoronary bypass graft; Z82.1 Family history of blindness and visual loss; Z79.899 Other long term (current) drug therapy; Z89.611 Acquired absence of right leg above knee; Z89.512 Acquired absence of left leg below knee; Z86.711 Personal history of pulmonary embolism; Z86.718 Personal history of other venous thrombosis and embolism; Z86.73 Personal history of transient ischemic attack (TIA), and cerebral infarction without residual deficits; Z79.82 Long term (current) use of aspirin; Z79.01 Long term (current) use of anticoagulants; Z79.02 Long term (current) use of antithrombotics/antiplatelets; Z90.49 Acquired absence of other specified parts of digestive tract; Z86.19 Personal history of other infectious and parasitic diseases; Z91.81 History of falling; Z87.891 Personal history of nicotine dependence
CPT/HCPCS: 96376; 96361; 96374; 96375; 99285; 36415; 94760; 93005; 85379; 80061; 80053; 82550 ×2; 82553 ×2; 83735; 84484 ×2; 85025; 85610; 85730; 71275; G0378 ×2; J2405; J1170; Q9967

== ENCOUNTER → 2019-01-18 | Outpatient (CLI) | payer MEDICARE, OTHER ==
--- NOTE | 2019-01-19 04:14 | MR ---
EXAMINATION TYPE: MR MRCP DATE OF EXAM: 01/18/2019 COMPARISON: Correlation CT is from 12/27/2018, 12/07/2018, and 10/27/2018 HISTORY: 48-year-old female Abnormal CT, Pain Technique: Multiplanar, multisequence images of the abdomen are obtained without IV contrast. IV T2-w eighted sequences of the pancreaticobiliary system were also acquired. Rotational 3-D reconstructions generated on a dedicated independent workstation. FINDINGS: This seems to be edematous change within the visualized breasts and body wall soft tissues suggesting diffuse anasarca. There is some loss of the flow void within the left portal vein. Patient is status post cholecystectomy. Bile duct dilated up to 1.1 cm. Additional mild to moderate intrahepatic biliary ductal dilatation. B y MRCP images, a questioned tiny 3 mm filling defect in the distal main pancreatic duct is not confir med. No suspicious filling defects seen within the bile duct. There is a low cystic duct insertion at the level of the upper pancreatic head. There is subtle beaded configuration to some of the right-sided intrahepatic biliary radicles and sug gestion of focal annular narrowing at the right biliary confluence at the mg hepatis. No upper abdominal ascites, azucena lymphadenopathy, gross bowel abnormality seen. IMPRESSION: 1. Intrahepatic and extra hepatic biliary ductal dilatation with the bile duct measuring 1.1 cm. Beto elation with alkaline phosphatase and bilirubin levels recommended as findings may be due to postchol ecystectomy status. 2. However, there is subtle beaded configuration to some of the right-sided intrahepatic biliary radi cles and some annular narrowing at the distal right hepatic duct. Mild strictures are suggested with some differential considerations including PSC, AIDS cholangiopathy (added to the differential due to the patient's cachectic state), and strictures of other causes such as chronic ischemia (noting the extensive atherosclerotic changes described on prior CTs), or prior surgery. No obvious mass is ident ified. Negative tumor markers would be reassuring. 3. Questioned 3 mm filling defect in the distal main pancreatic duct is not confirmed on MRCP images. No other intraluminal filling defect in the pancreaticobiliary tree. 4. Loss of flow void in the left portal vein could be due to slow flow or thrombosis. Further evaluat ion with portal vein ultrasound can be considered.
== END | disposition home or self-care (01) ==
LOC: RADMRIMAIN 14:33
PROVIDERS: ATTEND Internal Medicine Hematology & Oncology
DX: K83.1 Obstruction of bile duct (principal); K83.8 Other specified diseases of biliary tract; I87.8 Other specified disorders of veins
CPT/HCPCS: 74181

== ENCOUNTER 2019-03-05 19:49 | Inpatient (IN) | payer MEDICARE, OTHER ==
[2019-03-05] MEDS ORDERED: NITROGLYCERIN SL TABS 0.4 MG TAB SUBLINGUAL STA (19:58)
[2019-03-05] MEDS ORDERED: ASPIRIN 81 MG PO STA (19:58)
[2019-03-05] MEDS ORDERED: MORPHINE SULFATE 4 MG/ML SYRINGE IVP STA (20:21)
[2019-03-05 20:34] LABS: Basophils % (A) 0 %; Eosinophils # (A) 0.2 k/uL (0-0.7); Eosinophils % (A) 2 %; HCT 42.8 % (34.0-46.0); HGB 12.6 gm/dL (11.4-16.0); Hypochromasia Marked; Lymphocytes % (A) 14 %; MCH 29.9 pg (25.0-35.0); MCHC 29.3 g/dL (31.0-37.0); MCV 101.8 fL (80.0-100.0); Macrocytosis Slight; Mean Platelet Volume 7.9; Monocytes # (A) 0.2 k/uL (0-1.0); Monocytes % (A) 2 %; Neutrophils # (A) 5.4 k/uL (1.3-7.7); Neutrophils % (A) 80 %; Platelet Count 314 k/uL (150-450); RBC 4.21 m/uL (3.80-5.40); RDW 13.8 % (11.5-15.5); WBC 6.7 k/uL (3.8-10.6)
[2019-03-05 20:43] LABS: Albumin 3.7 g/dL (3.5-5.0); Calcium 8.8 mg/dL (8.4-10.2); Magnesium 1.8 mg/dL (1.6-2.3); Potassium 4.5 mmol/L (3.5-5.1); Total Bilirubin 0.6 mg/dL (0.2-1.3); Total Protein 7.8 g/dL (6.3-8.2)
--- NOTE | 2019-03-05 20:50 | XR ---
EXAMINATION TYPE: XR chest 2V DATE OF EXAM: 03/05/2019 COMPARISON: 12/06/2018 HISTORY: Chest pain TECHNIQUE: Frontal and lateral views of the chest are obtained. FINDINGS: Heart is enlarged. There is a poorly marginated 3 cm infiltrate in the right lower lung fi eld is probably in the right middle lobe. The other lung duncan are clear. There are no hilar masses. Bony thorax is intact. IMPRESSION: There is new right middle lobe infiltrate compared to old exam. Mild cardiomegaly. No h eart failure.
[2019-03-05] MEDS ORDERED: AZITHROMYCIN 500 MG in SODIUM CHLORIDE 0.9% 250 ML IVPB STA (21:13)
[2019-03-05] MEDS ORDERED: CEFEPIME 2 GM in SODIUM CHLORIDE 0.9% 100 ML IVPB STA (21:13)
[2019-03-05] MEDS ORDERED: VANCOMYCIN IV PER PHARMACY 1 EACH MISC MISCELLANE PRN (21:13)
[2019-03-05] MEDS ORDERED: VANCOMYCIN 750 MG in SODIUM CHLORIDE 0.9% 250 ML IVPB STA (21:15)
--- NOTE | 2019-03-05 22:02 | CT ---
EXAMINATION TYPE: CT angio chest DATE OF EXAM: 03/05/2019 9:09 PM COMPARISON: 03/05/2019 HISTORY: Chest pain, SOB CT DLP: 185 mGycm Automated exposure control for dose reduction was used. CONTRAST: CTA scan of the thorax is performed with IV Contrast, patient injected with 100 mL of Isovue 370, pul monary embolism protocol. There are 3-D post processed images.. FINDINGS: There is some patchy reticular nodular infiltrate in the right upper lobe right perihilar region. The re is similar patchy nodular infiltrate posterior medial left lower lobe. There is no pleural effusio n. There is no pericardial effusion. There is no mediastinal adenopathy. There are no hilar masses. T here is normal contrast opacification of the pulmonary arteries. There are no filling defects. There is no evidence of thoracic aortic aneurysm or dissection. There are apparent surgical clips at the [facility]. There is some atherosclerotic plaque in the upper abdominal aorta and lower thoracic aorta. Th ere is significant luminal narrowing of the lower abdominal aorta which is probably completely occlud ed below the level of the renal arteries. There is a small right kidney consistent with chronic ische analisa and atrophy. The bony thorax is intact. IMPRESSION: NO EVIDENCE OF PULMONARY EMBOLISM. BILATERAL PULMONARY INFILTRATES CONSISTENT WITH INFLAMMATORY DISEA SE. INFILTRATES APPEAR NEW COMPARED TO OLD CT SCAN. SIGNIFICANT ATHEROSCLEROTIC DISEASE IN THE ABDOMINAL AORTA WITH PROBABLY COMPLETE OCCLUSION OF THE AB DOMINAL AORTA BELOW THE RENAL ARTERIES. THIS APPEARS UNCHANGED COMPARED TO OLD EXAM OF 11/28/1917.
[2019-03-05] MEDS ORDERED: IPRATROPIUM-ALBUTEROL 3 ML NEB INHALATION STA (22:08)
[2019-03-05 22:19] LABS: INR 1.1 (<1.2); Partial Thromboplastin Time 31.4 sec (22.0-30.0); Prothrombin Time 11.2 sec (9.0-12.0)
--- NOTE | 2019-03-05 22:19 | ED ---
Chest Pain HPI - General Source: patient Mode of arrival: ambulatory Limitations: no limitations <Mark Anthony Caballero - Last Filed: 03/05/19 22:19> <Emreald Mosqueda - Last Filed: 03/05/19 22:42> - General Chief Complaint: Chest Pain Stated Complaint: Chest Pain, MYAH Time Seen by Provider: 03/05/19 19:56 - Related Data Home Medications Medication Instructions Recorded Confirmed Clopidogrel Bisulfate [Plavix] 75 mg PO DAILY 12/06/18 03/05/19 Cyclobenzaprine [Flexeril] 10 mg PO TID PRN 12/27/18 03/05/19 Rivaroxaban [Xarelto] 20 mg PO DAILY 03/05/19 03/05/19 Previous Rx's Medication Instructions Recorded Nitroglycerin Sl Tabs [Nitrostat] 0.4 mg SUBLINGUAL Q5M PRN tab 12/28/18 Allergies Allergy/AdvReac Type Severity Reaction Status Date / Time ibuprofen Allergy Unknown Verified 03/05/19 21:13 trazodone Allergy Chest Pain Verified 03/05/19 21:13 Review of Systems ROS Other: All systems not noted in ROS Statement are negative. <Mark Anthony Caballero - Last Filed: 03/05/19 22:19> ROS Other: All systems not noted in ROS Statement are negative. <Emerald Mosqueda - Last Filed: 03/05/19 22:42> ROS Statement: Those systems with pertinent positive or pertinent negative responses have been documented in the HPI. Past Medical History Past Medical History: Asthma, Heart Failure, CVA/TIA, Deep Vein Thrombosis (DVT), Osteoarthritis (OA), Pulmonary Embolus (PE) Additional Past Medical History / Comment(s): sticky platelet syndrome, bronchitis, anx/depression, falls History of Any Multi-Drug Resistant Organisms: ESBL Date of last positivie culture/infection: 10/15/18 ESBL MDRO Source:: Urine Past Surgical History: Cholecystectomy, Coronary Bypass/CABG Additional Past Surgical History / Comment(s): ltBKA, left lower leg, aortic bypass right leg, right leg fasciotomy.pt stated had another vascular sx after the fasciotomy at [facility] unclear as to exactly what was done Rt BKA Past Anesthesia/Blood Transfusion Reactions: No Reported Reaction Additional Past Anesthesia/Blood Transfusion Reaction / Comment(s): pt stated has had a blood transfusion in past-no reaction. Past Psychological History: Anxiety, Depression Smoking Status: Former smoker Past Alcohol Use History: None Reported Past Drug Use History: None Reported - Past Family History Mother History Unknown: Yes Additional Family Medical History / Comment(s): MS, legally blind, cataracts Father Family Medical History: No Reported History Additional Family Medical History / Comment(s): Was younger when he , car accident <Mark Anthony Caballero - Last Filed: 03/05/19 22:19> General Exam Limitations: no limitations <Mark Anthony Caballero - Last Filed: 03/05/19 22:19> Course <Mark Anthony Caballero - Last Filed: 03/05/19 22:19> Vital Signs 03/05/19 19:52 Temperature 98 F Pulse Rate 105 H Respiratory 20 Rate Blood Pressure 155/90 O2 Sat by Pulse 100 Oximetry - Reevaluation(s) Reevaluation #1: 03/05/19 22:19 PA supervision: I personally do a reevaluation this case and do agree with the assessment patient's case was discussed with Dr. blackwell. Patient be admitted for inpatient evaluation. (Mark Anthony Caballero) Disposition <FedericoMark Anthony - Last Filed: 03/05/19 22:19> Is patient prescribed a controlled substance at d/c from ED?: No Time of Disposition: 22:42 Decision to Admit Reason: Admit from EC Decision Date: 03/05/19 Decision Time: 22:42 <Emerald Mosqueda - Last Filed: 03/05/19 22:42> Clinical Impression: Pneumonia, Chest pain, Elevated brain natriuretic peptide (BNP) level, Hx of acquired congestive heart failure Disposition: ADMITTED IP TO THIS HOSP Condition: Stable Referrals: None,Stated [Primary Care Provider] - 1-2 days
[2019-03-05] MEDS ORDERED: NALOXONE 0.4 MG/ML 1 ML VIAL IV PRN (22:38)
[2019-03-05 22:40] LABS: D-Dimer 1.89 mg/L FEU (<0.60)
[2019-03-05] MEDS ORDERED: NITROGLYCERIN OINT 1 INCH/GM PACKET TOPICAL PRN (22:41)
[2019-03-05] MEDS ORDERED: FUROSEMIDE 10 MG/ML 4 ML VIAL IV STA (22:42)
[2019-03-06] MEDS ORDERED: HYDROcodone/APAP 5-325MG 1 EACH TAB PO STA (01:09)
[2019-03-06] MEDS: CLOPIDOGREL 75 MG TAB PO SCH (07:28)
[2019-03-06] MEDS: RIVAROXABAN 20 MG TAB PO SCH (07:29)
[2019-03-06] MEDS: traMADol 50 MG TAB PO PRN ×2 (07:29→13:56)
[2019-03-06] MEDS: VANCOMYCIN 750 MG in SODIUM CHLORIDE 0.9% 250 ML IVPB SCH (08:34)
--- NOTE | 2019-03-06 09:49 | P.CRDCN ---
History of Present Illness Consult date: 03/06/19 Requesting physician: Lindy Thakur Reason for Consult (text): chest pain Chief complaint: chest pain, shortness of breath History of present illness: This is a pleasant 48-year-old -Chinese female who follows with Dr. Gary in the office. She has a history of severe cardiomyopathy with a known ejection fraction of less than 20%, severe peripheral vascular disease with right abov e-the-knee amputation and left below the knee amputation, sticky platelet syndrome, recurrent PEs and DVTs, chronic kidney disease and multiple hospital admissions. She is currently on Plavix and Xarelto. Presented this admission with complaint of shortness of breath and chest heaviness. Apparently she been starting to feel poorly a couple of days ago with a cough for which she was pretty up yellowish-green sputum and overall not feeling well with some chills. CT of the chest this admission shows no evidence of pulmonary embolism but does show new bilateral pulmonary infiltrates consistent with inflammatory disease. EKG on admission showed sinus rhythm with evidence of possible prior an terolateral infarct with no changes compared to previous. Chest x-ray showed new right middle lobe infiltrate compared to old exam, mild cardiomegaly and no heart failure. Laboratory values on admission showed troponins negative 2, NT proBNP 22,000 with highest documented NT proBNP in August 2018 of 127,000, BUN 15, creatinine 0.98 and a plasma lactic acid of 2.4. She's been initiated on IV Vancomycin. Past Medical History Past Medical History: Asthma, Heart Failure, CVA/TIA, Deep Vein Thrombosis (DVT), Osteoarthritis (OA), Pulmonary Embolus (PE) Additional Past Medical History / Comment(s): sticky platelet syndrome, bro nchitis, anx/depression, falls History of Any Multi-Drug Resistant Organisms: ESBL Date of last positivie culture/infection: 10/15/18 ESBL MDRO Source:: Urine Past Surgical History: Cholecystectomy, Coronary Bypass/CABG Additional Past Surgical History / Comment(s): ltBKA, left lower leg, aortic bypass right leg, right leg fasciotomy.pt stated had another vascular sx after the fasciotomy at [facility] unclear as to exactly what was done Rt BKA Past Anesthesia/Blood Transfusion Reactions: No Reported Reaction Additional Past Anesthesia/Blood Transfusion Reaction / Comment(s): pt stated has had a blood transfusion in past-no reaction. Past Psychological History: Anxiety, Depression Additional Psychological History / Comment(s): Is cared for by her mother in her own private residence, denies depression at this time. That a current tobacco smoker. No animal exposures Smoking Status: Former smoker Past Alcohol Use History: None Reported Additional Past Alcohol Use History / Comment(s): started smoking at age 22; quit 2018 was smoking 1/2ppd. Past Drug Use History: None Reported - Past Family History Mother History Unknown: Yes Additional Family Medical History / Comment(s): MS, legally blind, cataracts Father Family Medical History: No Reported History Additional Family Medical History / Comment(s): Was younger when he , car accident Medications and Allergies Home Medications Medication Instructions Recorded Confirmed Type Clopidogrel Bisulfate [Plavix] 75 mg PO DAILY 12/06/18 03/05/19 History Cyclobenzaprine [Flexeril] 10 mg PO TID PRN 12/27/18 03/05/19 History Nitroglycerin Sl Tabs [Nitrostat] 0.4 mg SUBLINGUAL Q5M PRN tab 12/28/18 03/05/19 Rx Rivaroxaban [Xarelto] 20 mg PO DAILY 03/05/19 03/05/19 History Allergies Allergy/AdvReac Type Severity Reaction Status Date / Time ibuprofen Allergy Unknown Verified 03/05/19 21:13 trazodone Allergy Chest Pain Verified 03/05/19 21:13 Physical Exam Vitals: Vital Signs Temp Pulse Pulse Resp BP BP Pulse Ox 03/06/19 07:50 109 H 18 131/89 100 03/06/19 03:39 98.6 F 105 H 18 102/71 100 03/06/19 00:00 98.2 F 100 18 107/75 100 03/05/19 23:35 98.6 F 90 18 145/78 98 03/05/19 23:01 98.2 F 100 18 107/75 100 03/05/19 19:52 98 F 105 H 20 155/90 100 Intake and Output 03/05/19 03/06/19 03/06/19 22:59 06:59 14:59 Intake Total 120 Output Total 600 Balance -480 Intake: Oral 120 Output: Urine 600 Other: Voiding Method Bedpan # Voids 5 # Bowel Movements 0 Weight 38.102 kg 43.5 kg PHYSICAL EXAMINATION: HEENT: Head is atraumatic, normocephalic. Pupils equal, round. Neck is supple. There is no elevated jugular venous pressure. HEART EXAMINATION: Heart sounds regular, S1 and S2 normal. No murmur or gallop heard. CHEST EXAMINATION: Lungs reveal diminished air entry bilaterally with crackles. No chest wall tenderness is noted on palpation or with deep breathing. ABDOMEN: Soft, nontender. Bowel sounds are heard. No organomegaly noted. EXTREMITIES: Right AKA and left BKA noted. NEUROLOGIC patient is awake, alert and oriented x3. . Results 03/05/19 20:22 03/05/19 20:22 Cardiac Enzymes 03/05/19 03/05/19 03/06/19 Range/Units 20:22 20: 05:47 AST 43 H (14-36) U/L Troponin I <0.012 0.015 (0.000-0.034) ng/mL Coagulation 03/05/19 Range/Units 21:37 PT 11.2 (9.0-12.0) sec APTT 31.4 H (22.0-30.0) sec CBC 03/05/19 Range/Units 20:22 WBC 6.7 (3.8-10.6) k/uL RBC 4.21 (3.80-5.40) m/uL Hgb 12.6 (11.4-16.0) gm/dL Hct 42.8 (34.0-46.0) % Plt Count 314 (150-450) k/uL Comprehensive Metabolic Panel 03/05/19 Range/Units 20:22 Sodium 139 (137-145) mmol/L Potassium 4.5 (3.5-5.1) mmol/L Chloride 105 (98-107) mmol/L Carbon Dioxide 21 L (22-30) mmol/L BUN 15 (7-17) mg/dL Creatinine 0.98 (0.52-1.04) mg/dL Glucose 139 H (74-99) mg/dL Calcium 8.8 (8.4-10.2) mg/dL AST 43 H (14-36) U/L ALT 47 (9-52) U/L Alkaline Phosphatase 180 H (38-126) U/L Total Protein 7.8 (6.3-8.2) g/dL Albumin 3.7 (3.5-5.0) g/dL Current Medications Generic Name Dose Route Start Last Admin Trade Name Freq PRN Reason Stop Dose Admin Clopidogrel Bisulfate 75 mg 03/06/19 09:00 03/06/19 07:28 Plavix PO 75 mg DAILY DEIRDRE Administration Vancomycin HCl 750 mg/ Sodium 250 mls @ 125 mls/hr 03/06/19 09:00 03/06/19 08:34 Chloride IVPB 125 mls/hr Q24H DEIRDRE Administration Naloxone HCl 0.2 mg 03/05/19 22:38 Narcan IV Q2M PRN Opioid Reversal Nitroglycerin 0.5 inch 03/05/19 22:41 Nitro-Bid Oint TOPICAL Q6HR PRN Chest Pain Rivaroxaban 20 mg 03/06/19 09:00 03/06/19 07:29 Xarelto PO 20 mg DAILY DEIRDRE Administration Tramadol HCl 50 mg 03/06/19 00:09 03/06/19 07:29 Ultram PO 50 mg QID PRN Administration pain Intake and Output 03/05/19 03/06/19 03/06/19 22:59 06:59 14:59 Intake Total 120 Output Total 600 Balance -480 Intake: Oral 120 Output: Urine 600 Other: Voiding Method Bedpan # Voids 5 # Bowel Movements 0 Weight 38.102 kg 43.5 kg 03/05/19 20:22 03/05/19 20:22 EKG Interpretations (text) Sinus rhythm with evidence of prior anterior lateral DE Assessment and Plan Assessment: #1 pneumonia #2 symptoms of chest heaviness, atypical for acute coronary syndrome likely secondary to #1 #3 sticky platelet syndrome currently on Plavix and Xarelto #4 history of recurrent PEs #5 no history of cardiomyopathy with an ejection fraction less than 20% #6 history of bilateral lower extremity amputations #7 chronic systolic heart failure, currently euvolemic Plan: From cardiology's perspective, we will await third troponin. Symptoms of chest heaviness likely related to underlying pneumonia. We'll continue to follow the patient provide further recommendations accordingly. [employer] note has been reviewed, I agree with a documented findings and plan of care. Patient was seen and examined.
--- NOTE | 2019-03-06 12:45 | P.HPIM ---
History of Present Illness Chief Complaint: Chest pain 48-year-old female with a past medical history significant for ejection fraction less than 20%, history of PE on xarelto, history of sticky platelet syndrome, history of CVA/TIA, history of CAD status post CABG, hyperlipidemia comes in for above-mentioned complaints. Patient says that she started having chest pain in the left side of the chest is about 7 x 10 intensity and was radiating to her back. She said that she is short of breath and is coughing greenish yellow phlegm. She said that she's also having fever and chills, no abdominal pain, nausea and vomiting, no diarrhea no constipation, no tingling numbness of any extremities, no itch or rash. At the time examination the patient was saying that she is supposed to be on 100 mg of morphine and 8 mg of Dilaudid. This was prescribed to her by her pain doctors until their clinic was closed in October 2018. ER course Review of Systems All systems: negative Past Medical History Past Medical History: Asthma, Heart Failure, CVA/TIA, Deep Vein Thrombosis (DVT), Osteoarthritis (OA), Pulmonary Embolus (PE) Additional Past Medical History / Comment(s): sticky platelet syndrome, bronchitis, anx/depression, falls History of Any Multi-Drug Resistant Organisms: ESBL Date of last positivie culture/infection: 10/15/18 ESBL MDRO Source:: Urine Past Surgical History: Cholecystectomy, Coronary Bypass/CABG Additional Past Surgical History / Comment(s): ltBKA, left lower leg, aortic bypass right leg, right leg fasciotomy.pt stated had another vascular sx after the fasciotomy at [facility] unclear as to exactly what was done Rt BKA Past Anesthesia/Blood Transfusion Reactions: No Reported Reaction Additional Past Anesthesia/Blood Transfusion Reaction / Comment(s): pt stated has had a blood transfusion in past-no reaction. Past Psychological History: Anxiety, Depression Additional Psychological History / Comment(s): Is cared for by her mother in her own private residence, denies depression at this time. That a current tobacco smoker. No animal exposures Smoking Status: Former smoker Past Alcohol Use History: None Reported Additional Past Alcohol Use History / Comment(s): started smoking at age 22; quit 2018 was smoking 1/2ppd. Past Drug Use History: None Reported - Past Family History Mother History Unknown: Yes Additional Family Medical History / Comment(s): MS, legally blind, cataracts Father Family Medical History: No Reported History Additional Family Medical History / Comment(s): Was younger when he , car accident Medications and Allergies Home Medications Medication Instructions Recorded Confirmed Type Clopidogrel Bisulfate [Plavix] 75 mg PO DAILY 12/06/18 03/05/19 History Cyclobenzaprine [Flexeril] 10 mg PO TID PRN 12/27/18 03/05/19 History Nitroglycerin Sl Tabs [Nitrostat] 0.4 mg SUBLINGUAL Q5M PRN tab 12/28/18 03/05/19 Rx Rivaroxaban [Xarelto] 20 mg PO DAILY 03/05/19 03/05/19 History Allergies Allergy/AdvReac Type Severity Reaction Status Date / Time ibuprofen Allergy Unknown Verified 03/05/19 21:13 trazodone Allergy Chest Pain Verified 03/05/19 21:13 Physical Exam Vitals: Vital Signs Temp Pulse Pulse Resp BP BP Pulse Ox 03/06/19 11:07 98.8 F 95 18 125/78 96 03/06/19 07:50 109 H 18 131/89 100 03/06/19 03:39 98.6 F 105 H 18 102/71 100 03/06/19 00:00 98.2 F 100 18 107/75 100 03/05/19 23:35 98.6 F 90 18 145/78 98 03/05/19 23:01 98.2 F 100 18 107/75 100 03/05/19 19:52 98 F 105 H 20 155/90 100 Intake and Output 03/05/19 03/06/19 03/06/19 22:59 06:59 14:59 Intake Total 120 Output Total 1200 Balance -1080 Intake: Oral 120 Output: Urine 1200 Other: Voiding Method Bedpan # Voids 5 # Bowel Movements 0 Weight 38.102 kg 43.5 kg 43.5 kg On exam, alert and oriented x3. HEENT: Conjunctivae normal. eyes normal. NECK: No JVD. No thyroid enlargement. No LNs CARDIOVASCULAR: S1, S2 is admitted RESPIRATION: Dullness appreciated more than the left side. ABDOMEN: Soft, nontender . No guarding. no masses palpable. No ascites, No hepatosplenomegaly.Bowel sounds heard. LEGS: Patient has amputation of her lower extremities. NERVOUS SYSTEM: Cranial N 2-12 grossly normal. Moves all 4 limbs. No focal deficits. No sensory deficit. No signs of cerebellar dysfucntion. Results CBC & Chem 7: 03/05/19 20:22 03/05/19 20:22 Labs: Abnormal Lab Results - Last 24 Hours (Table) 03/05/19 03/05/19 03/05/19 Range/Units 20:22 20:22 21:37 MCV 101.8 H (80.0-100.0) fL MCHC 29.3 L (31.0-37.0) g/dL APTT 31.4 H (22.0-30.0) sec D-Dimer 1.89 H (<0.60) mg/L FEU Carbon Dioxide 21 L (22-30) mmol/L Glucose 139 H (74-99) mg/dL Plasma Lactic Acid Faisal (0.7-2.0) mmol/L AST 43 H (14-36) U/L Alkaline Phosphatase 180 H (38-126) U/L Lipase 13 L (23-300) U/L 03/06/19 Range/Units 08:27 MCV (80.0-100.0) fL MCHC (31.0-37.0) g/dL APTT (22.0-30.0) sec D-Dimer (<0.60) mg/L FEU Carbon Dioxide (22-30) mmol/L Glucose (74-99) mg/dL Plasma Lactic Acid Faisal 2.4 H* (0.7-2.0) mmol/L AST (14-36) U/L Alkaline Phosphatase (38-126) U/L Lipase (23-300) U/L Thrombosis Risk Factor Assmnt - Choose All That Apply Each Factor Represents 1 point: Age 41-60 years Each Risk Factor Represents 3 Points: History of DVT/PE Other congenital or acquired thrombophilia - If yes, enter type in comment: No Thrombosis Risk Factor Assessment Total Risk Factor Score: 4 Thrombosis Risk Factor Assessment Level: Moderate Risk Assessment and Plan Assessment: -Bilateral pneumonia possible healthcare associated pneumonia -History of CHF with systolic dysfunction ejection fraction 20% - History of bilateral lower extremity hypertension - History of sticky platelet syndrome - History of PE on anticoagulation - History of CVA - CAD status post CABG - History of hyperlipidemia Plan - We will admit the patient to stepdown with telemetry - At the time examination, the patient was complaining of pain in her left chest mostly in the back. This is probably due to her pneumonia. We'll continue antibiotics for now - The patient wants morphine and Dilaudid that she was on at home. She was not prescribed his medications since October 2018. During the last admission when she was here, she was given tramadol. We'll give her the same at this time - Also, we'll put her on Lidoderm patch - Patient's lactic acid was 2.4. Patient does not look to be overtly fluid overloaded at this time in fact look to be on the chip drier side. We'll repeat the lactic acid again if needed we will give her small amount of IV fluids. Will be cautious with IV fluids as her ejection fraction is around 20%. Pulmonology is consulted for pneumonia - We'll resume the patient's home medications - DVT and GI prophylaxis - We'll order for lab work in the morning - Expected length of stay more than 2 midnights - Patient is full code Time with Patient: Greater than 30
[2019-03-06] MEDS ORDERED: AZITHROMYCIN 500 MG in SODIUM CHLORIDE 0.9% 250 ML IVPB SCH (13:00)
[2019-03-06] MEDS: LIDOCAINE 5% PATCH TOPICAL SCH (13:55)
[2019-03-06] MEDS: CYCLOBENZAPRINE 10 MG TAB PO PRN (13:56)
[2019-03-06] MEDS: CEFEPIME 2 GM in SODIUM CHLORIDE 0.9% 100 ML IVPB SCH ×2 (15:00→22:01)
[2019-03-06] MEDS: HYDROcodone/APAP 5-325MG 1 EACH TAB PO PRN ×2 (15:27→22:02)
--- NOTE | 2019-03-07 00:12 | P.CONS ---
History of Present Illness - Reason for Consult Consult date: 03/06/19 Pneumonia Requesting physician: Ignacio Stern - Chief Complaint Chest pain and cough x few days - History of Present Illness Patient is a 48-year-old -[place] female presented to the ER at [facility] which she complains of right-sided chest pain that apparently started an hour before presenting to the hospital patient as well as with the pain to be sharp, 7-8 out of 10 and some radiation to the back patient also have associated cough which is mild to moderate intensity and bring up some yellow sputum and no hemoptysis denies having any nausea no vomiting no choking on the food no abdominal pain or any diarrhea. The symptom the patient was e valuated by the physician on arrival to the patient did have a chest x-ray with evidence of right middle lobe pneumonia she did have a CT-guided milligrams was negative for PE however did shows evidence of bilateral infiltrates concerning for pneumonia as the patient has been in and out of the hospital she has been started on cefepime and vancomycin and admitted to the hospital infectious disease was consulted for further determination regarding antibiotic therapy Review of Systems CONSTITUTIONAL: Positive for weakness. Chills and low-grade Fever EYES: No complaint. ENT:No complaint. RESPIRATORY: As per history of present illness. CARDIOVASCULAR: As per history of present illness. GENITOURINARY: No complaint. GASTROINTESTINAL: No complaint. MUSCULOSKELETAL: No complaint. INTEGUMENTARY: No complaint. PSYCHOLOGICAL: No complaint. ENDOCRINE: No complaint. NEUROLOGIC: No complaint. Past Medical History Past Medical History: Asthma, Heart Failure, CVA/TIA, Deep Vein Thrombosis (DVT), Osteoarthritis (OA), Pulmonary Embolus (PE) Additional Past Medical History / Comment(s): sticky platelet syndrome, bronchitis, anx/depression, falls History of Any Multi-Drug Resistant Organisms: ESBL Year Discovered:: 10/15/18 ESBL MDRO Source:: Urine Past Surgical History: Cholecystectomy, Coronary Bypass/CABG Additional Past Surgical History / Comment(s): ltBKA, left lower leg, aortic bypass right leg, right leg fasciotomy.pt stated had another vascular sx after t he fasciotomy at [facility] unclear as to exactly what was done Rt BKA Past Anesthesia/Blood Transfusion Reactions: No Reported Reaction Additional Past Anesthesia/Blood Transfusion Reaction / Comm: pt stated has had a blood transfusion in past-no reaction. Past Psychological History: Anxiety, Depression Additional Psychological History / Comment(s): Is cared for by her mother in her own private residence, denies depression at this time. That a current tobacco smoker. No animal exposures Smoking Status: Former smoker Past Alcohol Use History: None Reported Additional Past Alcohol Use History / Comment(s): started smoking at age 22; quit 2018 was smoking 1/2ppd. Past Drug Use History: None Reported - Past Family History Mother History Unknown: Yes Additional Family Medical History / Comment(s): MS, legally blind, cataracts Father Family Medical History: No Reported History Additional Family Medical History / Comment(s): Was younger when he , car accident Medications and Allergies Home Medications Medication Instructions Recorded Confirmed Type Clopidogrel Bisulfate [Plavix] 75 mg PO DAILY 12/06/18 03/05/19 History Cyclobenzaprine [Flexeril] 10 mg PO TID PRN 12/27/18 03/05/19 History Nitroglycerin Sl Tabs [Nitrostat] 0.4 mg SUBLINGUAL Q5M PRN tab 12/28/18 03/05/19 Rx Rivaroxaban [Xarelto] 20 mg PO DAILY 03/05/19 03/05/19 History Allergies Allergy/AdvReac Type Severity Reaction Status Date / Time ibuprofen Allergy Unknown Verified 03/05/19 21:13 trazodone Allergy Chest Pain Verified 03/05/19 21:13 Physical Exam Vitals: Vital Signs Temp Pulse Pulse Resp BP BP Pulse Ox 03/06/19 15:57 98.5 F 125 H 18 88/69 100 03/06/19 11:07 98.8 F 95 18 125/78 96 03/06/19 07:50 109 H 18 131/89 100 03/06/19 03:39 98.6 F 105 H 18 102/71 100 03/06/19 00:00 98.2 F 100 18 107/75 100 03/05/19 23:35 98.6 F 90 18 145/78 98 03/05/19 23:01 98.2 F 100 18 107/75 100 03/05/19 19:52 98 F 105 H 20 155/90 100 Intake and Output 03/06/19 03/06/19 03/06/19 06:59 14:59 22:59 Intake Total 120 240 Output Total 1200 600 Balance -1080 -360 Intake: Oral 120 240 Output: Urine 1200 600 Other: Voiding Method Bedpan # Voids 5 # Bowel Movements 0 0 Weight 43.5 kg 43.5 kg GENERAL DESCRIPTION: Middle-aged male lying in bed, no distress. No tachypnea or accessory muscle of respiration use. HEENT: Shows Pallor , no scleral icterus. Oral mucous membrane is dry. No pharyngeal erythema or thrush NECK: Trachea central, no thyromegaly. LUNGS: Unlabored breathing. Decreased breath sound at the base. No wheeze or crackle. HEART: S1, S2, regular rate and rhythm. No loud murmur ABDOMEN: Soft, no tenderness , guarding or rigidity, no organomegaly EXTREMITIES: No edema of feet. SKIN: No rash, no masses palpable. NEUROLOGICAL: The patient is awake, alert, oriented x3, mood and affect normal. Results CBC & Chem 7: 03/05/19 20:22 03/05/19 20:22 Labs: Abnormal Lab Results - Last 24 Hours (Table) 03/05/19 03/05/19 03/05/19 Range/Units 20:22 20:22 21:37 MCV 101.8 H (80.0-100.0) fL MCHC 29.3 L (31.0-37.0) g/dL APTT 31.4 H (22.0-30.0) sec D-Dimer 1.89 H (<0.60) mg/L FEU Carbon Dioxide 21 L (22-30) mmol/L Glucose 139 H (74-99) mg/dL Plasma Lactic Acid Faisal (0.7-2.0) mmol/L AST 43 H (14-36) U/L Alkaline Phosphatase 180 H (38-126) U/L Lipase 13 L (23-300) U/L 03/06/19 03/06/19 Range/Units 08:27 14:03 MCV (80.0-100.0) fL MCHC (31.0-37.0) g/dL APTT (22.0-30.0) sec D-Dimer (<0.60) mg/L FEU Carbon Dioxide (22-30) mmol/L Glucose (74-99) mg/dL Plasma Lactic Acid Faisal 2.4 H* 2.3 H* (0.7-2.0) mmol/L AST (14-36) U/L Alkaline Phosphatase (38-126) U/L Lipase (23-300) U/L Assessment and Plan Assessment: 1-patient presented to hospital with right-sided chest pain the patient also have a cough and sputum production with evidence of pulmonary infiltrate both on a chest x-ray and CT likely descending pneumonia in this patient who has been in and out of the hospital will need to cover for resistant gram-positive and gram-negative pathogen in addition to the routine community-acquired pathogen Plan: 1-we will try to obtained sputum for Gram stain and culture 2-cefepime 2 g every 12 hours 3-vancomycin pharmacy to dose target trough of 15 while watching her Vanco trough and kidney function closely We will follow-up on clinical condition and cultures to further adjust medication if needed Thank you for this consultation will follow this patient along with you Time with Patient: Greater than 30
[2019-03-07 07:02] LABS: Calcium 8.2 mg/dL (8.4-10.2); Potassium 3.7 mmol/L (3.5-5.1)
--- NOTE | 2019-03-07 08:28 | P.PN ---
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 On follow-up with her today, she is feeling better. She still have atypical chest discomfort. She was ruled out for acute coronary event. The troponin came in to be within normal limits. She has been receiving treatment for pneumonia. She doesn't seems to be in any overt congestive heart failure at this point of time in spite of elevated BNP. Objective - Vital Signs Vital signs: Vital Signs Temp 98.5 F 03/07/19 03:14 Pulse 90 03/07/19 03:14 Resp 18 03/07/19 03:14 BP 102/68 03/07/19 03:14 Pulse Ox 100 03/07/19 03:14 Intake & Output 03/06/19 03/07/19 03/07/19 18:59 06:59 18:59 Intake Total 360 480 Output Total 1800 400 Balance -1440 80 Weight 43.5 kg 38 kg Intake: Oral 360 480 Output: Urine 1800 400 Other: Voiding Method Bedpan # Voids 0 1 # Bowel Movements 0 - Constitutional General appearance: Present: no acute distress - Respiratory Respiratory: bilateral: diminished - Cardiovascular Rhythm: regular Heart sounds: normal: S1, S2 - Labs CBC & Chem 7: 03/05/19 20:22 03/07/19 05:50 Labs: Abnormal Lab Results - Last 24 Hours (Table) 03/06/19 03/06/19 03/07/19 Range/Units 08:27 14:03 05:50 Chloride 109 H (98-107) mmol/L BUN 21 H (7-17) mg/dL Plasma Lactic Acid Faisal 2.4 H* 2.3 H* (0.7-2.0) mmol/L Calcium 8.2 L (8.4-10.2) mg/dL Microbiology - Last 24 Hours (Table) 03/05/19 21:42 Blood Culture - Preliminary Blood No Growth after 24 hours Assessment and Plan Assessment: Assessment #1 pneumonia. The patient currently is on antibiotic #2 severe cardiomyopathy, the patient seems to be compensating #3 stent keep platelet syndrome #4 history of bilateral lower extremities amputation #5 multiple comorbid conditions Plan #1 from the cardiac standpoint, we will continue the current medical regimen #2 she is receiving treatment for pneumonia #3 follow-up with the patient
[2019-03-07] MEDS: CEFEPIME 2 GM in SODIUM CHLORIDE 0.9% 100 ML IVPB SCH ×2 (08:31→19:54)
[2019-03-07] MEDS: CLOPIDOGREL 75 MG TAB PO SCH (08:33)
[2019-03-07] MEDS: LIDOCAINE 5% PATCH TOPICAL SCH (08:33)
[2019-03-07] MEDS: RIVAROXABAN 20 MG TAB PO SCH (08:33)
[2019-03-07] MEDS: HYDROcodone/APAP 5-325MG 1 EACH TAB PO PRN (08:41)
[2019-03-07] MEDS: VANCOMYCIN 750 MG in SODIUM CHLORIDE 0.9% 250 ML IVPB SCH (09:52)
[2019-03-07] MEDS: HYDROcodone/APAP 10-325MG 1 EACH TAB PO PRN ×4 (11:29→23:53)
[2019-03-07] MEDS ORDERED: MORPHINE SULFATE 4 MG/ML SYRINGE IVP STA (14:18)
--- NOTE | 2019-03-07 14:18 | P.PN ---
Subjective 48-year-old female with a past medical history significant for ejection fraction less than 20%, history of PE on xarelto, history of sticky platelet syndrome, history of CVA/TIA, history of CAD status post CABG, hyperlipidemia very patient presents with chest pain, found to have pneumonia. for Hospital acquired pneumonia, or infectious disease evaluated the patient. She is currently on vancomycin and cefepime. Also risk management analyst evaluated the patient and recommended to continue the current treatment for her pneumonia and history of severe cardiomyopathy. CT angios the chest was negative for PE and shows bilateral lower infiltrates. She has no white cell count elevation and no fever. However her lactic acid is elevated at 2.3. Patient states that she has a chronic pain around 5-6 and sometimes 7-8, her pain mainly in her back and make and she had surgeries with rest before. She used to follow up with pain clinic and they want closed last October, by Dr. bear. And she was taking morphine and Dilaudid but since closed she has some pills use it as needed when necessary. Patient was complaining of from pain in her back and her chest on the pneumonia side, she was taken [place] 03/11/2025 which was well helping her, we'll increase it today to [place] 08/11/2025 and she was still complaining of from severe pain and asking medical staff adamantly to give her more pain medication, one extra doses of morphine is a provided and p atient was counseled extensively about the risk of these medications including but not limited to the risk of and she verbalized understanding and acceptance, all risks explained to her including addiction and constipation. Objective - Vital Signs Vital signs: Vital Signs Temp 96.7 F L 03/07/19 08:00 Pulse 96 03/07/19 12:35 Resp 18 03/07/19 12:35 BP 126/70 03/07/19 12:35 Pulse Ox 100 03/07/19 12:35 Intake & Output 03/06/19 03/07/19 03/07/19 18:59 06:59 18:59 Intake Total 360 480 350 Output Total 1800 400 Balance -1440 80 350 Weight 43.5 kg 38 kg Intake: Intake, IV Titration 350 Amount Cefepime 2 gm In Sodium 100 Chloride 0.9% 100 ml @ 200 mls/hr IVPB Q12HR [facility] Rx#:[id number] Vancomycin 750 mg In 250 Sodium Chloride 0.9% 250 ml @ 125 mls/hr IVPB Q24H [facility] Rx#:[id number] Oral 360 480 Output: Urine 1800 400 Other: Voiding Method Bedpan # Voids 0 1 # Bowel Movements 0 - Exam GENERAL: The patient is alert and oriented x3, not in any acute distress. Well developed, well nourished. HEENT: Pupils are round and equally reacting to light. EOMI. No scleral icterus. No conjunctival pallor. Normocephalic, atraumatic. No pharyngeal erythema. No thyromegaly. CARDIOVASCULAR: S1 and S2 present. No murmurs, rubs, or gallops. PULMONARY: Chest is clear to auscultation, no wheezing or crackles. ABDOMEN: Soft, nontender, nondistended, normoactive bowel sounds. No palpable organomegaly. MUSCULOSKELETAL: No joint swelling or deformity. EXTREMITIES: No cyanosis, clubbing, or pedal edema. NEUROLOGICAL: Gross neurological examination did not reveal any focal deficits. SKIN: No rashes. - Labs CBC & Chem 7: 03/05/19 20:22 03/07/19 05:50 Labs: Abnormal Lab Results - Last 24 Hours (Table) 03/06/19 03/07/19 Range/Units 14:03 05:50 Chloride 109 H (98-107) mmol/L BUN 21 H (7-17) mg/dL Plasma Lactic Acid Faisal 2.3 H* (0.7-2.0) mmol/L Calcium 8.2 L (8.4-10.2) mg/dL Microbiology - Last 24 Hours (Table) 03/05/19 21:42 Blood Culture - Preliminary Blood No Growth after 24 hours Assessment and Plan Assessment: Hospital acquired bilateral lower lobe pneumonia Elevated lactic acid, mostly secondary to above History of severe cardiomyopathy History of PE on anticoagulation, xarelto Chronic back and neck pain, status post surgery, she used to follow up with pain clinic History of a stroke History of coronary artery disease, status post CABG Hyperlipidemia Plan: This is a pleasant 48 years old female who presents with right lateral lower pneumonia and Severe cardiomyopathy. Continue with antibiotic. Infectious disease. Cardiology input is appreciated.Labs and medication were reviewed.. Continue same treatment. Continue with symptomatic treatment. Resume home medication. on pain pills, Monitor lytes and vitals. DVT and GI prophylaxis. Further recommendations of the clinical course of the patient DVT prophylaxis: xarelto GI Prophylaxis: Pepcid Prognosis is guarded
[2019-03-07] MEDS: FAMOTIDINE 20 MG/2 ML VIAL IV SCH (19:54)
[2019-03-07] MEDS ORDERED: IPRATROPIUM-ALBUTEROL 3 ML NEB INHALATION PRN (20:38)
[2019-03-07] MEDS: IPRATROPIUM-ALBUTEROL 3 ML NEB INHALATION SCH (21:00)
--- NOTE | 2019-03-08 00:04 | P.PN ---
Subjective Progress Note Date: 03/07/19 Principal diagnosis: Pneumonia The patient is afebrile today the patient denies having rigors or chills the patient still complained of left lower chest pain and has been coughing bringing up some greenish sputum unfortunately no sputum has been collected the patient denies any nausea no vomiting and no diarrhea Objective - Vital Signs Vital signs: Vital Signs Temp 96.7 F L 03/07/19 08:00 Pulse 96 03/07/19 12:35 Resp 18 03/07/19 12:35 BP 126/70 03/07/19 12:35 Pulse Ox 100 03/07/19 12:35 Intake & Output 03/06/19 03/07/19 03/07/19 18:59 06:59 18:59 Intake Total 360 480 350 Output Total 1800 400 Balance -1440 80 350 Weight 43.5 kg 38 kg Intake: Intake, IV Titration 350 Amount Cefepime 2 gm In Sodium 100 Chloride 0.9% 100 ml @ 200 mls/hr IVPB Q12HR [facility] Rx#:[id number] Vancomycin 750 mg In 250 Sodium Chloride 0.9% 250 ml @ 125 mls/hr IVPB Q24H [facility] Rx#:[id number] Oral 360 480 Output: Urine 1800 400 Other: Voiding Method Bedpan # Voids 0 1 # Bowel Movements 0 - Exam GENERAL DESCRIPTION:[ Patient is awake and alert in no distress] HEENT: [Oral mucosa is dry and no pharyngeal erythema] EYES : [No pallor or scleral icterus] RESPIRATORY SYSTEM: [Unlabored breathing decreased breath sounds at the base] CARDIA VASCULAR SYSTEM: [S1-S2 regular rate and rhythm no murmur] GI: [Abdominal soft there's no tenderness no organomegaly] - Labs CBC & Chem 7: 03/05/19 20:22 03/07/19 05:50 Labs: Abnormal Lab Results - Last 24 Hours (Table) 03/06/19 03/07/19 Range/Units 14:03 05:50 Chloride 109 H (98-107) mmol/L BUN 21 H (7-17) mg/dL Plasma Lactic Acid Faisal 2.3 H* (0.7-2.0) mmol/L Calcium 8.2 L (8.4-10.2) mg/dL Microbiology - Last 24 Hours (Table) 03/05/19 21:42 Blood Culture - Preliminary Blood No Growth after 24 hours Assessment and Plan Assessment: 1-patient presented to hospital with right-sided chest pain the patient also have a cough and sputum production with evidence of pulmonary infiltrate both on a chest x-ray and CT likely descending pneumonia in this patient who has been in and out of the hospital will need to cover for resistant gram-positive and gram- negative pathogen in addition to the routine community-acquired pathogen Plan: 1-we will try to obtained sputum for Gram stain and culture , nurse has been instructed to provide the patient with a cup or sputum collection 2-cefepime 2 g every 12 hours 3-vancomycin pharmacy to dose target trough of 15 while watching her Vanco trough and kidney function closely Antibiotics to be adjusted further at the bases of cultures and clinical res ponse
[2019-03-08] MEDS: IPRATROPIUM-ALBUTEROL 3 ML NEB INHALATION SCH ×6 (00:37→19:26)
[2019-03-08] MEDS: HYDROcodone/APAP 10-325MG 1 EACH TAB PO PRN ×5 (03:49→23:53)
[2019-03-08] MEDS ORDERED: VANCOMYCIN TROUGH DUE 1 EACH MISC MISCELLANE ONE (08:00)
[2019-03-08 08:31] LABS: Basophils % (A) 0 %; Eosinophils # (A) 0.1 k/uL (0-0.7); Eosinophils % (A) 3 %; HCT 33.1 % (34.0-46.0); Hypochromasia Marked; Lymphocytes # (A) 0.9 k/uL (1.0-4.8); Lymphocytes % (A) 21 %; MCH 30.1 pg (25.0-35.0); MCHC 30.3 g/dL (31.0-37.0); MCV 99.6 fL (80.0-100.0); Mean Platelet Volume 7.9; Monocytes # (A) 0.2 k/uL (0-1.0); Monocytes % (A) 4 %; Neutrophils % (A) 69 %; Platelet Count 293 k/uL (150-450); RBC 3.33 m/uL (3.80-5.40); WBC 4.3 k/uL (3.8-10.6)
[2019-03-08 08:36] LABS: Calcium 8.2 mg/dL (8.4-10.2)
--- NOTE | 2019-03-08 08:38 | P.PN ---
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 On follow-up with her today, she is feeling better. She still have atypical chest discomfort. She was ruled out for acute coronary event. The troponin came in to be within normal limits. She has been receiving treatment for pneumonia. She is still on antibiotic for the pneumonia. On examination she does have bilateral expiratory wheezing. Objective - Vital Signs Vital signs: Vital Signs Temp 98.4 F 03/08/19 04:00 Pulse 80 03/08/19 04:47 Resp 16 03/08/19 04:00 BP 119/71 03/08/19 04:00 Pulse Ox 100 03/08/19 04:00 Intake & Output 03/07/19 03/08/19 03/08/19 18:59 06:59 18:59 Intake Total 1292 Output Total 336 Balance 1292 -336 Weight 38 kg Intake: Intake, IV Titration 350 Amount Cefepime 2 gm In Sodium 100 Chloride 0.9% 100 ml @ 200 mls/hr IVPB Q12HR [facility] Rx#:[id number] Vancomycin 750 mg In 250 Sodium Chloride 0.9% 250 ml @ 125 mls/hr IVPB Q24H [facility] Rx#:[id number] Oral 942 Output: Urine 336 Other: Voiding Method Bedpan # Voids 3 1 - Constitutional General appearance: Present: no acute distress - Respiratory Respiratory: bilateral: wheezing - Cardiovascular Rhythm: regular Heart sounds: normal: S1, S2 - Labs CBC & Chem 7: 03/08/19 08:05 03/08/19 08:05 Labs: Abnormal Lab Results - Last 24 Hours (Table) 03/08/19 03/08/19 Range/Units 08:05 08:05 RBC 3.33 L (3.80-5.40) m/uL Hgb 10.0 L D (11.4-16.0) gm/dL Hct 33.1 L (34.0-46.0) % MCHC 30.3 L (31.0-37.0) g/dL Lymphocytes # 0.9 L (1.0-4.8) k/uL Chloride 112 H (98-107) mmol/L BUN 21 H (7-17) mg/dL Creatinine 1.12 H (0.52-1.04) mg/dL Calcium 8.2 L (8.4-10.2) mg/dL Microbiology - Last 24 Hours (Table) 03/06/19 20:00 Gram Stain - Preliminary Sputum Sputum Culture - Preliminary 03/05/19 21:42 Blood Culture - Preliminary Blood No Growth after 48 hours Assessment and Plan Assessment: Assessment #1 pneumonia. The patient currently is on antibiotic #2 severe cardiomyopathy, the patient seems to be compensating #3 stent keep platelet syndrome #4 history of bilateral lower extremities amputation #5 multiple comorbid conditions Plan #1 from the cardiac standpoint, we will continue the current medical regimen #2 she is receiving treatment for pneumonia #3 follow-up with the patient
--- NOTE | 2019-03-08 09:02 | XR ---
EXAMINATION TYPE: XR chest 1V DATE OF EXAM: 03/08/2019 COMPARISON: 03/05/2019 HISTORY: Follow-up pneumonia TECHNIQUE: Single frontal view of the chest is obtained. FINDINGS: Bilateral subsegmental consolidation. Heart is enlarged. No pneumothorax. No overt failure . IMPRESSION: Persistent bilateral lobe infiltrate with no evidence of overt failure. Cardiomegaly sta ble.
[2019-03-08] MEDS: LIDOCAINE 5% PATCH TOPICAL SCH (09:05)
[2019-03-08] MEDS: RIVAROXABAN 20 MG TAB PO SCH (09:05)
[2019-03-08] MEDS: CYCLOBENZAPRINE 10 MG TAB PO PRN ×3 (09:05→23:53)
[2019-03-08] MEDS: CLOPIDOGREL 75 MG TAB PO SCH (09:05)
[2019-03-08] MEDS: FAMOTIDINE 20 MG/2 ML VIAL IV SCH (09:06)
[2019-03-08] MEDS: CEFEPIME 2 GM in SODIUM CHLORIDE 0.9% 100 ML IVPB SCH ×2 (09:06→19:56)
[2019-03-08] MEDS: VANCOMYCIN 750 MG in SODIUM CHLORIDE 0.9% 250 ML IVPB SCH (10:10)
--- NOTE | 2019-03-08 11:27 | P.PN ---
Subjective 48-year-old female with a past medical history significant for ejection fraction less than 20%, history of PE on xarelto, history of sticky platelet syndrome, history of CVA/TIA, history of CAD status post CABG, hyperlipidemia very patient presents with chest pain, found to have pneumonia. for Hospital acquired pneumonia, or infectious disease evaluated the patient. She is currently on vancomycin and cefepime. Also rigger helper evaluated the patient and recommended to continue the current treatment for her pneumonia and history of severe cardiomyopathy. CT angios the chest was negative for PE and shows bilateral lower infiltrates. She has no white cell count elevation and no fever. However her lactic acid is elevated at 2.3. Patient states that she has a chronic pain around 5-6 and sometimes 7-8, her pain mainly in her back and make and she had surgeries with rest before. She used to follow up with pain clinic and they want closed last October, by Dr. bear. And she was taking morphine and Dilaudid but since closed she has some pills use it as needed when necessary. Patient was complaining of from pain in her back and her chest on the pneumonia side, she was taken [place] 03/11/2025 which was well helping her, we'll increase it today to [place] 08/11/2025 and she was still complaining of from severe pain and asking medical staff adamantly to give her more pain medication, one extra doses of morphine is a provided and p atient was counseled extensively about the risk of these medications including but not limited to the risk of and she verbalized understanding and acceptance, all risks explained to her including addiction and constipation. 03/08/2019 Patient remains in bed with no dyspnea or chest pain. Her pain level today is 7/10, she looks comfortable in bed not in distress. She remains on pain pills which she tolerates well. She has chronic back pain and she is bedbound at baseline, she is on Xarelto for her sticky platelet syndrome. WBC 4.3. Creatinine 1.1. Patient is a bilateral. Sputum culture is in the process. She remains on cefepime and intravenous vancomycin as per infectious disease recommendation. Repeat chest x-ray from today showed persistent infiltrate. Objective - Vital Signs Vital signs: Vital Signs Temp 97.9 F 03/08/19 08:30 Pulse 84 03/08/19 10:38 Resp 18 03/08/19 08:30 BP 117/71 03/08/19 08:30 Pulse Ox 98 03/08/19 08:30 Intake & Output 03/07/19 03/08/19 03/08/19 18:59 06:59 18:59 Intake Total 1292 480 Output Total 336 Balance 1292 -336 480 Weight 38 kg Intake: Intake, IV Titration 350 Amount Cefepime 2 gm In Sodium 100 Chloride 0.9% 100 ml @ 200 mls/hr IVPB Q12HR [facility] Rx#:[id number] Vancomycin 750 mg In 250 Sodium Chloride 0.9% 250 ml @ 125 mls/hr IVPB Q24H [facility] Rx#:[id number] Oral 942 480 Output: Urine 336 Other: Voiding Method Bedpan # Voids 3 1 - Exam GENERAL: The patient is alert and oriented x3, not in any acute distress. Well developed, well nourished. HEENT: Pupils are round and equally reacting to light. EOMI. No scleral icterus. No conjunctival pallor. Normocephalic, atraumatic. No pharyngeal erythema. No thyromegaly. CARDIOVASCULAR: S1 and S2 present. No murmurs, rubs, or gallops. PULMONARY: Chest is clear to auscultation, no wheezing or crackles. ABDOMEN: Soft, nontender, nondistended, normoactive bowel sounds. No palpable organomegaly. MUSCULOSKELETAL: No joint swelling or deformity. EXTREMITIES: No cyanosis, clubbing, or pedal edema. NEUROLOGICAL: Gross neurological examination did not reveal any focal deficits. SKIN: No rashes. - Labs CBC & Chem 7: 03/08/19 08:05 03/08/19 08:05 Labs: Abnormal Lab Results - Last 24 Hours (Table) 03/08/19 03/08/19 Range/Units 08:05 08:05 RBC 3.33 L (3.80-5.40) m/uL Hgb 10.0 L D (11.4-16.0) gm/dL Hct 33.1 L (34.0-46.0) % MCHC 30.3 L (31.0-37.0) g/dL Lymphocytes # 0.9 L (1.0-4.8) k/uL Chloride 112 H (98-107) mmol/L BUN 21 H (7-17) mg/dL Creatinine 1.12 H (0.52-1.04) mg/dL Calcium 8.2 L (8.4-10.2) mg/dL Microbiology - Last 24 Hours (Table) 03/06/19 20:00 Gram Stain - Preliminary Sputum Sputum Culture - Preliminary 03/05/19 21:42 Blood Culture - Preliminary Blood No Growth after 48 hours Assessment and Plan Assessment: Hospital acquired bilateral lower lobe pneumonia Elevated lactic acid, mostly secondary to above History of severe cardiomyopathy History of PE on anticoagulation, xarelto Chronic back and neck pain, status post surgery, she used to follow up with pain clinic History of a stroke History of coronary artery disease, status post CABG Hyperlipidemia Plan: This is a pleasant 48 years old female who presents with right lateral lower pneumonia and Severe cardiomyopathy. Continue with antibiotic. Infectious disease. Cardiology input is appreciated.Labs and medication were reviewed.. Continue same treatment. Continue with symptomatic treatment. Resume home medication. on pain pills, Monitor lytes and vitals. DVT and GI prophylaxis. Further recommendations of the clinical course of the patient DVT prophylaxis: xarelto GI Prophylaxis: Pepcid Prognosis is guarded
--- NOTE | 2019-03-08 14:41 | CDI ---
Documentation Clarification Form Date: 03/08/2019 2:33:24 PM From: Georgia WestonAlbertoALYSON, CCDS Admit Date: 03/05/2019 10:18:00 PM Patient Name: Nel Linares Visit Number: [id number] Discharge Date: ATTENTION: The Clinical Documentation Specialists (CDI) and [facility] Coding Staff appreciate your assistance in clarifying documentation. Please respond to the clarification below the line at the bottom and electronically sign. The CDI & [facility] Coding staff will review the response and follow-up if needed. Please note: Queries are made part of the Legal Health Record. If you have any questions, please contact the author of this message via ITS. Dr. Benson Sheet: Per the cardiology consult the patient has chronic kidney disease. History/Risk Factors: CKD, CHF with systolic dysfunction, DVT, Asthma, OA, PE, Sticky Platelet Syndrome, Depression, Falls, ESBL Urine 10/26. Previous Cholecystectomy, CABG, bilateral BKA, Vascular procedure to bilateral legs. Clinical Indicators: Presented with chest pain. Diagnosed with bilateral pneumonia possible healthcare associated pneumonia. LAB: BUN 15 - 21 - 21; Creatinine 0.98 - 0.95 - 1.12^; GFR 67 - 71 - 57 Treatment: Nitro sl, IV Morphine, IV Azithromycin, IV Cefepime, IV Vancomycin, Albuterol INH, Nitro sl, IV Lasix In order to capture the severity of condition, please clarify if the condition signifies: CKD Stage 1 (GFR > 90) CKD Stage 2 (GFR 60-89) CKD Stage 3 (GFR 30-59) CKD Stage 4 (GFR 15-29) CKD Stage 5 (GFR <15) ESRD Other, please specify Unable to determine (Last Revision: February 2018) Unable to determine MTDD
[2019-03-08] MEDS: FAMOTIDINE 20 MG TAB PO SCH (19:56)
--- NOTE | 2019-03-08 23:55 | P.PN ---
Subjective Progress Note Date: 03/08/19 Principal diagnosis: Pneumonia The patient denies having fever or chills the patient still complained of left lower chest pain however has decreased intensity and has been coughing bringing up some greenish sputum , sputum has been collected this morning, the patient denies any nausea no vomiting and no diarrhea Objective - Vital Signs Vital signs: Vital Signs Temp 97.2 F L 03/08/19 19:59 Pulse 89 03/08/19 19:59 Resp 16 03/08/19 19:59 BP 132/78 03/08/19 19:59 Pulse Ox 99 03/08/19 19:59 Intake & Output 03/08/19 03/08/19 03/09/19 06:59 18:59 06:59 Intake Total 720 Output Total 336 350 300 Balance -336 370 -300 Weight 38 kg Intake: Oral 720 Output: Urine 336 350 300 Other: Voiding Method Bedpan # Voids 1 1 1 - Exam GENERAL DESCRIPTION:[ Patient is awake and alert in no distress] HEENT: [Oral mucosa is dry and no pharyngeal erythema] EYES : [No pallor or scleral icterus] RESPIRATORY SYSTEM: [Unlabored breathing decreased breath sounds at the base] CARDIA VASCULAR SYSTEM: [S1-S2 regular rate and rhythm no murmur] GI: [Abdominal soft there's no tenderness no organomegaly] - Labs CBC & Chem 7: 03/08/19 08:05 03/08/19 08:05 Labs: Abnormal Lab Results - Last 24 Hours (Table) 03/08/19 03/08/19 Range/Units 08:05 08:05 RBC 3.33 L (3.80-5.40) m/uL Hgb 10.0 L D (11.4-16.0) gm/dL Hct 33.1 L (34.0-46.0) % MCHC 30.3 L (31.0-37.0) g/dL Lymphocytes # 0.9 L (1.0-4.8) k/uL Chloride 112 H (98-107) mmol/L BUN 21 H (7-17) mg/dL Creatinine 1.12 H (0.52-1.04) mg/dL Calcium 8.2 L (8.4-10.2) mg/dL Microbiology - Last 24 Hours (Table) 03/06/19 20:00 Gram Stain - Preliminary Sputum Sputum Culture - Preliminary 03/05/19 21:42 Blood Culture - Preliminary Blood No Growth after 48 hours Assessment and Plan Assessment: 1-patient presented to hospital with right-sided chest pain the patient also have a cough and sputum production with evidence of pulmonary infiltrate both on a chest x-ray and CT likely descending pneumonia in this patient who has been in and out of the hospital will need to cover for resistant gram-positive and gram- negative pathogen Plan: 1-the patient will continue on cefepime 2 g every 12 hours and vancomycin pharmacy to dose target trough of 15 while watching her Vanco trough and kidney function closely Antibiotics to be adjusted further on the basis of cultures and clinical response Time with Patient: Less than 30
[2019-03-09 00:09] LABS: Calcium 8.2 mg/dL (8.4-10.2); Potassium 3.8 mmol/L (3.5-5.1)
[2019-03-09] MEDS: IPRATROPIUM-ALBUTEROL 3 ML NEB INHALATION SCH ×6 (00:14→19:50)
[2019-03-09] MEDS: HYDROcodone/APAP 10-325MG 1 EACH TAB PO PRN ×2 (03:58→09:55)
[2019-03-09] MEDS: VANCOMYCIN 750 MG in SODIUM CHLORIDE 0.9% 250 ML IVPB SCH ×2 (03:58→23:00)
[2019-03-09] MEDS: RIVAROXABAN 20 MG TAB PO SCH (09:55)
[2019-03-09] MEDS: CLOPIDOGREL 75 MG TAB PO SCH (09:55)
[2019-03-09] MEDS: CEFEPIME 2 GM in SODIUM CHLORIDE 0.9% 100 ML IVPB SCH ×2 (09:56→21:45)
[2019-03-09] MEDS: FAMOTIDINE 20 MG TAB PO SCH ×2 (09:56→21:49)
[2019-03-09] MEDS: LIDOCAINE 5% PATCH TOPICAL SCH (09:57)
[2019-03-09] MEDS ORDERED: MORPHINE SULFATE 4 MG/ML SYRINGE IVP STA (10:09)
--- NOTE | 2019-03-09 13:43 | P.PN ---
Subjective 48-year-old female with a past medical history significant for ejection fraction less than 20%, history of PE on xarelto, history of sticky platelet syndrome, history of CVA/TIA, history of CAD status post CABG, hyperlipidemia very patient presents with chest pain, found to have pneumonia. for Hospital acquired pneumonia, or infectious disease evaluated the patient. She is currently on vancomycin and cefepime. Also shoelace tipping machine operator evaluated the patient and recommended to continue the current treatment for her pneumonia and history of severe cardiomyopathy. CT angios the chest was negative for PE and shows bilateral lower infiltrates. She has no white cell count elevation and no fever. However her lactic acid is elevated at 2.3. Patient states that she has a chronic pain around 5-6 and sometimes 7-8, her pain mainly in her back and make and she had surgeries with rest before. She used to follow up with pain clinic and they want closed last October, by Dr. bear. And she was taking morphine and Dilaudid but since closed she has some pills use it as needed when necessary. Patient was complaining of from pain in her back and her chest on the pneumonia side, she was taken [place] 03/11/2025 which was well helping her, we'll increase it today to [place] 08/11/2025 and she was still complaining of from severe pain and asking medical staff adamantly to give her more pain medication, one extra doses of morphine is a provided and p atient was counseled extensively about the risk of these medications including but not limited to the risk of and she verbalized understanding and acceptance, all risks explained to her including addiction and constipation. 03/08/2019 Patient remains in bed with no dyspnea or chest pain. Her pain level today is 7/10, she looks comfortable in bed not in distress. She remains on pain pills which she tolerates well. She has chronic back pain and she is bedbound at baseline, she is on Xarelto for her sticky platelet syndrome. WBC 4.3. Creatinine 1.1. Patient is a bilateral. Sputum culture is in the process. She remains on cefepime and intravenous vancomycin as per infectious disease recommendation. Repeat chest x-ray from today showed persistent infiltrate. 03/09/2019 Patient with no dyspnea or chest pain, she is lying in bed with no distress. She still complaining of from pain in her chest and asking for more pain central venous medication, she agrees to 1 dose of IV morphine and she agrees to lower the [place] to 7.5. She is hemodynamically stable. Creatinine 1.0. Sputum culture still in the process. Patient remains on IV vancomycin and cefepime and infectious disease R following the patient closely. Objective - Vital Signs Vital signs: Vital Signs Temp 98.8 F 03/09/19 08:00 Pulse 102 H 03/09/19 12:47 Resp 16 03/09/19 08:00 BP 118/76 03/09/19 08:00 Pulse Ox 99 03/09/19 12:51 Intake & Output 03/08/19 03/09/19 03/09/19 18:59 06:59 18:59 Intake Total 720 420 Output Total 350 300 Balance 370 -300 420 Weight 38 kg Intake: Oral 720 420 Output: Urine 350 300 Other: Voiding Method Bedpan # Voids 1 1 1 # Bowel Movements 0 - Exam GENERAL: The patient is alert and oriented x3, not in any acute distress. Well developed, well nourished. HEENT: Pupils are round and equally reacting to light. EOMI. No scleral icterus. No conjunctival pallor. Normocephalic, atraumatic. No pharyngeal erythema. No thyromegaly. CARDIOVASCULAR: S1 and S2 present. No murmurs, rubs, or gallops. PULMONARY: Chest is clear to auscultation, no wheezing or crackles. ABDOMEN: Soft, nontender, nondistended, normoactive bowel sounds. No palpable organomegaly. MUSCULOSKELETAL: No joint swelling or deformity. EXTREMITIES: No cyanosis, clubbing, or pedal edema. NEUROLOGICAL: Gross neurological examination did not reveal any focal deficits. SKIN: No rashes. - Labs CBC & Chem 7: 03/08/19 08:05 03/08/19 23:10 Labs: Abnormal Lab Results - Last 24 Hours (Table) 03/08/19 Range/Units 23:10 Chloride 113 H (98-107) mmol/L Carbon Dioxide 20 L (22-30) mmol/L BUN 19 H (7-17) mg/dL Glucose 100 H (74-99) mg/dL Calcium 8.2 L (8.4-10.2) mg/dL Microbiology - Last 24 Hours (Table) 03/05/19 21:42 Blood Culture - Preliminary Blood No Growth after 72 hours Assessment and Plan Assessment: Hospital acquired bilateral lower lobe pneumonia Elevated lactic acid, mostly secondary to above History of severe cardiomyopathy History of PE on anticoagulation, xarelto Chronic back and neck pain, status post surgery, she used to follow up with pain clinic History of a stroke History of coronary artery disease, status post CABG Hyperlipidemia Plan: This is a pleasant 48 years old female who presents with right lateral lower pneumonia and Severe cardiomyopathy. Continue with antibiotic. Infectious disease. Cardiology input is appreciated.Labs and medication were reviewed.. Continue same treatment. Continue with symptomatic treatment. Resume home medication. on pain pills, Monitor lytes and vitals. DVT and GI prophylaxis. Further recommendations of the clinical course of the patient DVT prophylaxis: xarelto GI Prophylaxis: Pepcid Prognosis is guarded
[2019-03-09 14:07] LABS: Basophils % (A) 0 %; Eosinophils # (A) 0.2 k/uL (0-0.7); Eosinophils % (A) 3 %; HCT 34.7 % (34.0-46.0); HGB 10.3 gm/dL (11.4-16.0); Hypochromasia Marked; Lymphocytes % (A) 20 %; MCH 29.7 pg (25.0-35.0); MCHC 29.7 g/dL (31.0-37.0); Mean Platelet Volume 7.5; Monocytes # (A) 0.2 k/uL (0-1.0); Monocytes % (A) 3 %; Neutrophils # (A) 3.5 k/uL (1.3-7.7); Neutrophils % (A) 71 %; Platelet Count 327 k/uL (150-450); RBC 3.47 m/uL (3.80-5.40); WBC 4.9 k/uL (3.8-10.6)
[2019-03-09 14:34] LABS: Potassium 3.9 mmol/L (3.5-5.1)
[2019-03-09 14:58] VITALS: BMI 15.3
[2019-03-09] MEDS: HYDROcodone/APAP 7.5-325MG 1 EACH TAB PO PRN (18:15)
--- NOTE | 2019-03-09 23:13 | P.PN ---
Subjective Progress Note Date: 03/09/19 Principal diagnosis: Pneumonia The patient is afebrile today, the patient left lower chest pain has decreased intensity and patient cough is decreased intensity and less productive now no nausea no vomiting no abdominal pain and no diarrhea Objective - Vital Signs Vital signs: Vital Signs Temp 98.8 F 03/09/19 08:00 Pulse 106 H 03/09/19 12:36 Resp 16 03/09/19 08:00 BP 118/76 03/09/19 08:00 Pulse Ox 100 03/09/19 08:30 Intake & Output 03/08/19 03/09/19 03/09/19 18:59 06:59 18:59 Intake Total 720 180 Output Total 350 300 Balance 370 -300 180 Weight 38 kg Intake: Oral 720 180 Output: Urine 350 300 Other: Voiding Method Bedpan # Voids 1 1 1 # Bowel Movements 0 - Exam GENERAL DESCRIPTION:[ Patient is awake and alert in no distress] HEENT: [Oral mucosa is dry and no pharyngeal erythema] EYES : [No pallor or scleral icterus] RESPIRATORY SYSTEM: [Unlabored breathing decreased breath sounds at the base] CARDIA VASCULAR SYSTEM: [S1-S2 regular rate and rhythm no murmur] GI: [Abdominal soft there's no tenderness no organomegaly] - Labs CBC & Chem 7: 03/09/19 13:48 03/09/19 13:48 Labs: Abnormal Lab Results - Last 24 Hours (Table) 03/08/19 Range/Units 23:10 Chloride 113 H (98-107) mmol/L Carbon Dioxide 20 L (22-30) mmol/L BUN 19 H (7-17) mg/dL Glucose 100 H (74-99) mg/dL Calcium 8.2 L (8.4-10.2) mg/dL Microbiology - Last 24 Hours (Table) 03/05/19 21:42 Blood Culture - Preliminary Blood No Growth after 72 hours Assessment and Plan Assessment: 1-patient presented to hospital with right-sided chest pain the patient also have a cough and sputum production with evidence of pulmonary infiltrate both on a chest x-ray and CT likely descending pneumonia in this patient who has been in and out of the hospital will need to cover for resistant gram-positive and gram- negative pathogen Plan: 1-the patient will continue on cefepime 2 g every 12 hours and vancomycin pharmacy to dose target trough of 15 while watching her Vanco trough and kidney function closely, blood culture has been negative so far and sputum cultures are pending the patient Antibiotics to be adjusted further on the basis of cultures and clinical response Time with Patient: Less than 30
[2019-03-10] MEDS: IPRATROPIUM-ALBUTEROL 3 ML NEB INHALATION SCH ×6 (00:15→21:11)
[2019-03-10] MEDS: HYDROcodone/APAP 7.5-325MG 1 EACH TAB PO PRN ×2 (00:33→08:28)
[2019-03-10] MEDS: FAMOTIDINE 20 MG TAB PO SCH ×2 (08:28→21:22)
[2019-03-10] MEDS: RIVAROXABAN 20 MG TAB PO SCH (08:28)
[2019-03-10] MEDS: CLOPIDOGREL 75 MG TAB PO SCH (08:28)
[2019-03-10] MEDS: CYCLOBENZAPRINE 10 MG TAB PO PRN (08:28)
[2019-03-10] MEDS: CEFEPIME 2 GM in SODIUM CHLORIDE 0.9% 100 ML IVPB SCH ×2 (08:29→21:22)
[2019-03-10] MEDS: LIDOCAINE 5% PATCH TOPICAL SCH (08:29)
[2019-03-10 08:33] LABS: Calcium 8.5 mg/dL (8.4-10.2); Potassium 3.8 mmol/L (3.5-5.1)
--- NOTE | 2019-03-10 13:29 | P.PN ---
Subjective 48-year-old female with a past medical history significant for ejection fraction less than 20%, history of PE on xarelto, history of sticky platelet syndrome, history of CVA/TIA, history of CAD status post CABG, hyperlipidemia very patient presents with chest pain, found to have pneumonia. for Hospital acquired pneumonia, or infectious disease evaluated the patient. She is currently on vancomycin and cefepime. Also truck loader evaluated the patient and recommended to continue the current treatment for her pneumonia and history of severe cardiomyopathy. CT angios the chest was negative for PE and shows bilateral lower infiltrates. She has no white cell count elevation and no fever. However her lactic acid is elevated at 2.3. Patient states that she has a chronic pain around 5-6 and sometimes 7-8, her pain mainly in her back and make and she had surgeries with rest before. She used to follow up with pain clinic and they want closed last October, by Dr. bear. And she was taking morphine and Dilaudid but since closed she has some pills use it as needed when necessary. Patient was complaining of from pain in her back and her chest on the pneumonia side, she was taken [place] 03/11/2025 which was well helping her, we'll increase it today to [place] 08/11/2025 and she was still complaining of from severe pain and asking medical staff adamantly to give her more pain medication, one extra doses of morphine is a provided and p atient was counseled extensively about the risk of these medications including but not limited to the risk of and she verbalized understanding and acceptance, all risks explained to her including addiction and constipation. 03/08/2019 Patient remains in bed with no dyspnea or chest pain. Her pain level today is 7/10, she looks comfortable in bed not in distress. She remains on pain pills which she tolerates well. She has chronic back pain and she is bedbound at baseline, she is on Xarelto for her sticky platelet syndrome. WBC 4.3. Creatinine 1.1. Patient is a bilateral. Sputum culture is in the process. She remains on cefepime and intravenous vancomycin as per infectious disease recommendation. Repeat chest x-ray from today showed persistent infiltrate. 03/09/2019 Patient with no dyspnea or chest pain, she is lying in bed with no distress. She still complaining of from pain in her chest and asking for more pain central venous medication, she agrees to 1 dose of IV morphine and she agrees to lower the [place] to 7.5. She is hemodynamically stable. Creatinine 1.0. Sputum culture still in the process. Patient remains on IV vancomycin and cefepime and infectious disease R following the patient closely. 03/20/2019 Patient came doing fine, no much respiratory symptoms. Her chest pain is controlled. She is to continue quiet witha distress. Hemodynamically stable she is saturating 100% on 2 L. Sputum culture still pending. Patient remains on IV antibiotics. Objective - Vital Signs Vital signs: Vital Signs Temp 98.9 F 03/10/19 12:43 Pulse 103 H 03/10/19 12:43 Resp 16 03/10/19 12:43 BP 133/90 03/10/19 12:43 Pulse Ox 100 03/10/19 12:43 Intake & Output 03/09/19 03/10/19 03/10/19 18:59 06:59 18:59 Intake Total 1037 450 280 Output Total 700 Balance 1037 -250 280 Weight 38 kg 40 kg Intake: Oral 1037 450 280 Output: Urine 700 Other: Voiding Method Bedpan Bedpan Bedpan # Voids 1 1 # Bowel Movements 0 0 - Exam GENERAL: The patient is alert and oriented x3, not in any acute distress. Well developed, well nourished. HEENT: Pupils are round and equally reacting to light. EOMI. No scleral icterus. No conjunctival pallor. Normocephalic, atraumatic. No pharyngeal erythema. No thyromegaly. CARDIOVASCULAR: S1 and S2 present. No murmurs, rubs, or gallops. PULMONARY: Chest is clear to auscultation, no wheezing or crackles. ABDOMEN: Soft, nontender, nondistended, normoactive bowel sounds. No palpable organomegaly. MUSCULOSKELETAL: No joint swelling or deformity. EXTREMITIES: No cyanosis, clubbing, or pedal edema. NEUROLOGICAL: Gross neurological examination did not reveal any focal deficits. SKIN: No rashes. - Labs CBC & Chem 7: 03/09/19 13:48 03/10/19 07:26 Labs: Abnormal Lab Results - Last 24 Hours (Table) 03/09/19 03/09/19 03/10/19 Range/Units 13:48 13:48 07:26 RBC 3.47 L (3.80-5.40) m/uL Hgb 10.3 L (11.4-16.0) gm/dL MCHC 29.7 L (31.0-37.0) g/dL Chloride 110 H 111 H (98-107) mmol/L BUN 19 H 20 H (7-17) mg/dL Glucose 134 H (74-99) mg/dL Calcium 8.0 L (8.4-10.2) mg/dL Microbiology - Last 24 Hours (Table) 03/05/19 21:42 Blood Culture - Preliminary Blood No Growth after 96 hours Assessment and Plan Assessment: Hospital acquired bilateral lower lobe pneumonia Elevated lactic acid, mostly secondary to above History of severe cardiomyopathy History of PE on anticoagulation, xarelto Chronic back and neck pain, status post surgery, she used to follow up with pain clinic History of a stroke History of coronary artery disease, status post CABG Hyperlipidemia Plan: This is a pleasant 48 years old female who presents with right lateral lower pneumonia and Severe cardiomyopathy. Continue with antibiotic. Infectious disease. Cardiology input is appreciated.Labs and medication were reviewed.. Continue same treatment. Continue with symptomatic treatment. Resume home medication. on pain pills, Monitor lytes and vitals. DVT and GI prophylaxis. Further recommendations of the clinical course of the patient DVT prophylaxis: xarelto GI Prophylaxis: Pepcid Prognosis is guarded
[2019-03-10] MEDS: VANCOMYCIN 750 MG in SODIUM CHLORIDE 0.9% 250 ML IVPB SCH (16:12)
[2019-03-10] MEDS: HYDROcodone/APAP 5-325MG 1 EACH TAB PO PRN ×2 (16:18→21:29)
--- NOTE | 2019-03-10 22:01 | P.PN ---
Subjective Progress Note Date: 03/10/19 Principal diagnosis: Pneumonia The patient denies any fever or chills, the patient cough is decreased intensity and less productive now, chest pain has decreased intensity as well as the patient denies nausea no vomiting no abdominal pain and no diarrhea Objective - Vital Signs Vital signs: Vital Signs Temp 98.0 F 03/10/19 08:35 Pulse 86 03/10/19 08:36 Resp 16 03/10/19 08:36 BP 126/80 03/10/19 08:35 Pulse Ox 100 03/10/19 08:35 Intake & Output 03/09/19 03/10/19 03/10/19 18:59 06:59 18:59 Intake Total 1037 450 280 Output Total 700 Balance 1037 -250 280 Weight 38 kg 40 kg Intake: Oral 1037 450 280 Output: Urine 700 Other: Voiding Method Bedpan Bedpan Bedpan # Voids 1 1 # Bowel Movements 0 0 - Exam GENERAL DESCRIPTION:[ Patient is awake and alert in no distress] HEENT: [Oral mucosa is dry and no pharyngeal erythema] EYES : [No pallor or scleral icterus] RESPIRATORY SYSTEM: [Unlabored breathing decreased breath sounds at the base] CARDIA VASCULAR SYSTEM: [S1-S2 regular rate and rhythm no murmur] GI: [Abdominal soft there's no tenderness no organomegaly] - Labs CBC & Chem 7: 03/09/19 13:48 03/10/19 07:26 Labs: Abnormal Lab Results - Last 24 Hours (Table) 03/09/19 03/09/19 03/10/19 Range/Units 13:48 13:48 07:26 RBC 3.47 L (3.80-5.40) m/uL Hgb 10.3 L (11.4-16.0) gm/dL MCHC 29.7 L (31.0-37.0) g/dL Chloride 110 H 111 H (98-107) mmol/L BUN 19 H 20 H (7-17) mg/dL Glucose 134 H (74-99) mg/dL Calcium 8.0 L (8.4-10.2) mg/dL Microbiology - Last 24 Hours (Table) 03/05/19 21:42 Blood Culture - Preliminary Blood No Growth after 96 hours Assessment and Plan Assessment: 1-patient presented to hospital with right-sided chest pain the patient also have a cough and sputum production with evidence of pulmonary infiltrate both on a chest x-ray and CT likely pneumonia , with initial concern for resistant gram- positive and gram-negative pathogen , however sputum has been negative for any resistant pathogen Plan: 1-the patient will continue on cefepime 2 g every 12 hours , that'll be transitioned to oral antibiotics on discharge we will discontinue the vancomycin as no MRSA has been grown in the cultures Time with Patient: Less than 30
[2019-03-11] MEDS: NITROGLYCERIN SL TABS 0.4 MG TAB SUBLINGUAL PRN ×2 (03:51→04:01)
[2019-03-11] MEDS: CYCLOBENZAPRINE 10 MG TAB PO PRN (04:05)
[2019-03-11] MEDS: HYDROcodone/APAP 5-325MG 1 EACH TAB PO PRN ×2 (04:05→13:20)
[2019-03-11 05:01] VITALS: RESP 16
[2019-03-11] MEDS: RIVAROXABAN 20 MG TAB PO SCH (08:33)
[2019-03-11] MEDS: CEFEPIME 2 GM in SODIUM CHLORIDE 0.9% 100 ML IVPB SCH (08:33)
[2019-03-11] MEDS: CLOPIDOGREL 75 MG TAB PO SCH (08:33)
[2019-03-11] MEDS: FAMOTIDINE 20 MG TAB PO SCH (08:33)
[2019-03-11] MEDS: LIDOCAINE 5% PATCH TOPICAL SCH (08:34)
[2019-03-11] MEDS ORDERED: VANCOMYCIN TROUGH DUE 1 EACH MISC MISCELLANE ONE (09:00)
[2019-03-11 09:50] LABS: Calcium 8.3 mg/dL (8.4-10.2); Potassium 4.2 mmol/L (3.5-5.1)
[2019-03-11 14:53] VITALS: BP 124/78; PULSE 74; TEMP 97.6
--- NOTE | 2019-03-11 21:12 | P.DS ---
Providers Date of admission: 03/05/19 22:18 Attending physician: Lindy Thakur Consults: 03/05/19 22:38 Consult Physician Routine Consulting Provider: Víctor Beal Consult Reason/Comments: hospital acquired pneumonia Do you want consulting provider notified?: Yes Consult Physician Routine Consulting Provider: Jalen Gary Consult Reason/Comments: chest pain Do you want consulting provider notified?: Yes Primary care physician: Stated None Hospital Course: Diagnoses: Hospital acquired bilateral lower lobe pneumonia History of severe cardiomyopathy History of PE on anticoagulation, xarelto Chronic back and neck pain, status post surgery, she used to follow up with pain clinic History of a stroke History of bedbound History of coronary artery disease, status post CABG Hyperlipidemia Hospital course: This is a pleasant 48 years old female who presents with bilateral lower lobe pneumonia, with new infiltrates on CAT scan of the chest. Patient has been evaluated by pulmonary team, she was started on broad-spectrum antibiotics. Sputum culture came back positive for foreign albicans, with no other bacteria. Patient showed interval improvement and she returned back to her baseline, or close to her baseline. Patient was cleared by infectious disease team to be discharged home on antibiotic. Patient herself with no fever, no leukocytosis. No dyspnea. She is saturating 100% on 2 L via nasal cannula, a breathing rate is 16-17/m. Patient she feels she can go home. pt will be discharged on oral abx as per ID team recommendation Problems and management plan were discussed with the patient and she verbalized understanding and acceptance Patient was found stable to be discharged and cardiac prognosis however she needs follow-up as an outpatient. pt wanted to swicth her pcp to somebody else. pt wanted to follow up with , i called but they did not accept her insurance. eventually i made appointment for the pt with and pt agreed with appointment and date and she states she will follow up . Gen: patient is a AAOx3, no distress CVS: S1-S2, RRR, no murmur Lungs: B/L CTA, no wheezing Abdomen: soft, no distention, no tenderness, positive bowel sounds Extremity: no leg edema or induration. Patient is bedridden Time spent more than 35 minutes Patient Condition at Discharge: Stable Plan - Discharge Summary Discharge Rx Participant: No New Discharge Prescriptions: New Cefuroxime Axetil [Ceftin] 500 mg PO BID #10 tab Lidocaine 5% Patch [Lidoderm 5% Patch] 1 patch TOPICAL DAILY #30 patch Famotidine [Pepcid] 20 mg PO DAILY #20 tab Albuterol Inhaler [Ventolin Hfa Inhaler] 1 - 2 puff INHALATION RT-Q6H PRN #1 inhaler PRN Reason: Shortness Of Breath Continue Clopidogrel Bisulfate [Plavix] 75 mg PO DAILY Cyclobenzaprine [Flexeril] 10 mg PO TID PRN PRN Reason: Muscle Spasm Nitroglycerin Sl Tabs [Nitrostat] 0.4 mg SUBLINGUAL Q5M PRN tab PRN Reason: Chest Pain Rivaroxaban [Xarelto] 20 mg PO DAILY Discharge Medication List Clopidogrel Bisulfate [Plavix] 75 mg PO DAILY 12/06/18 [History] Cyclobenzaprine [Flexeril] 10 mg PO TID PRN 12/27/18 [History] Nitroglycerin Sl Tabs [Nitrostat] 0.4 mg SUBLINGUAL Q5M PRN tab 12/28/18 [Rx] Rivaroxaban [Xarelto] 20 mg PO DAILY 03/05/19 [History] Albuterol Inhaler [Ventolin Hfa Inhaler] 1 - 2 puff INHALATION RT-Q6H PRN #1 inhaler 03/11/19 [Rx] Cefuroxime Axetil [Ceftin] 500 mg PO BID #10 tab 03/11/19 [Rx] Famotidine [Pepcid] 20 mg PO DAILY #20 tab 03/11/19 [Rx] Lidocaine 5% Patch [Lidoderm 5% Patch] 1 patch TOPICAL DAILY #30 patch 03/11/19 [Rx] Follow up Appointment(s)/Referral(s): Carissa Castro MD [STAFF PHYSICIAN] - 03/18/19 11:00 am (please call [email or web address] to verify appt date and time) Patient Instructions/Handouts: Pneumonia (DC) Care Plan Goals (MU): cardiac diet activity is limited till you see your doctor Discharge Disposition: HOME SELF-CARE
[2019-03-12] MEDS ORDERED: FAMOTIDINE 20 MG TAB PO SCH (09:00)
== END 2019-03-11 17:45 | disposition home or self-care (01) | DRG 194 ==
LOC: EC 19:49 → 3SCARD 22:18 → 4MS4W 03-10 11:53
PROVIDERS: ADMIT Internal Medicine; ATTEND Internal Medicine
DX: J18.1 Lobar pneumonia, unspecified organism (principal); I50.22 Chronic systolic (congestive) heart failure; I42.9 Cardiomyopathy, unspecified; I13.0 Hypertensive heart and chronic kidney disease with heart failure and stage 1 through stage 4 chronic kidney disease, or unspecified chronic kidney disease; E87.2 Acidosis; D69.1 Qualitative platelet defects; Y95 Nosocomial condition; E78.5 Hyperlipidemia, unspecified; N18.9 Chronic kidney disease, unspecified; J45.909 Unspecified asthma, uncomplicated; I25.10 Atherosclerotic heart disease of native coronary artery without angina pectoris; G89.29 Other chronic pain; M54.2 Cervicalgia; M54.9 Dorsalgia, unspecified; M19.90 Unspecified osteoarthritis, unspecified site; I25.2 Old myocardial infarction; I73.9 Peripheral vascular disease, unspecified; Z79.02 Long term (current) use of antithrombotics/antiplatelets; Z79.01 Long term (current) use of anticoagulants; Z79.899 Other long term (current) drug therapy; Z91.81 History of falling; Z74.01 Bed confinement status; Z86.718 Personal history of other venous thrombosis and embolism; Z86.711 Personal history of pulmonary embolism; Z86.19 Personal history of other infectious and parasitic diseases; Z90.49 Acquired absence of other specified parts of digestive tract; Z95.1 Presence of aortocoronary bypass graft; Z89.512 Acquired absence of left leg below knee; Z89.511 Acquired absence of right leg below knee; Z87.891 Personal history of nicotine dependence; Z86.73 Personal history of transient ischemic attack (TIA), and cerebral infarction without residual deficits; Z86.59 Personal history of other mental and behavioral disorders; Z88.8 Allergy status to other drugs, medicaments and biological substances; Z82.1 Family history of blindness and visual loss; Z82.0 Family history of epilepsy and other diseases of the nervous system; Z83.518 Family history of other specified eye disorder
CPT/HCPCS: 36415; 71045; 71046; 71275; 80048; 80053; 80202; 83605; 83690; 83735; 83880; 84484; 85025; 85379; 85610; 85730; 87040; 87070; 87205; 93005; 94640; 94760; 96365; 96368; 96374; 96375; 99285

== ENCOUNTER 2019-04-03 12:12 | Emergency (ER) | payer MEDICARE, OTHER ==
[2019-04-03 12:31] VITALS: TEMP 97.9
[2019-04-03] MEDS ORDERED: HYDROmorphone 1 MG/ML 1 ML SYRINGE IVP STA (12:41)
--- NOTE | 2019-04-03 13:17 | ED ---
Extremity Problem HPI - General Source: patient, RN notes reviewed Mode of arrival: wheelchair Limitations: no limitations <Amrit Warner - Last Filed: 04/03/19 17:03> <Jasen Cao - Last Filed: 04/03/19 17:11> - General Chief complaint: Extremity Problem,Nontraumatic Stated complaint: POSS BLOOD CLOT LEFT LEG Time Seen by Provider: 04/03/19 12:35 - History of Present Illness Initial comments: This is a 48-year-old female presents emergency Department with chief complaint of possible lower extremity blood clot. 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 Patient states she is currently taking Xarelto. Patient and caregiver have noticed that her remaining portions of her lower extremities are cold. They have also felt that they're more swollen than usual. Patient denies missing any doses of Xarelto. Patient states she has pain which is chronic (Amrit Warner) - Related Data Home Medications Medication Instructions Recorded Confirmed Clopidogrel Bisulfate [Plavix] 75 mg PO DAILY 12/06/18 03/05/19 Cyclobenzaprine [Flexeril] 10 mg PO TID PRN 12/27/18 03/05/19 Rivaroxaban [Xarelto] 20 mg PO DAILY 03/05/19 03/05/19 Previous Rx's Medication Instructions Recorded Nitroglycerin Sl Tabs [Nitrostat] 0.4 mg SUBLINGUAL Q5M PRN tab 12/28/18 Albuterol Inhaler [Ventolin Hfa 1 - 2 puff INHALATION RT-Q6H PRN 03/11/19 Inhaler] #1 inhaler Cefuroxime Axetil [Ceftin] 500 mg PO BID #10 tab 03/11/19 Famotidine [Pepcid] 20 mg PO DAILY #20 tab 03/11/19 Lidocaine 5% Patch [Lidoderm 5% 1 patch TOPICAL DAILY #30 patch 03/11/19 Patch] Allergies Allergy/AdvReac Type Severity Reaction Status Date / Time ibuprofen Allergy Unknown Verified 03/05/19 21:13 trazodone Allergy Chest Pain Verified 03/05/19 21:13 Review of Systems ROS Other: All systems not noted in ROS Statement are negative. <Amrit Warner - Last Filed: 04/03/19 17:03> ROS Other: All systems not noted in ROS Statement are negative. <Jasen Cao - Last Filed: 04/03/19 17:11> ROS Statement: Those systems with pertinent positive or pertinent negative responses have been documented in the HPI. Past Medical History Past Medical History: Asthma, Heart Failure, CVA/TIA, Deep Vein Thrombosis (DVT), Osteoarthritis (OA), Pulmonary Embolus (PE) Additional Past Medical History / Comment(s): sticky platelet syndrome, bronchitis, anx/depression, falls renal failure History of Any Multi-Drug Resistant Organisms: ESBL Date of last positivie culture/infection: 10/15/18 ESBL MDRO Source:: Urine Past Surgical History: Cholecystectomy Additional Past Surgical History / Comment(s): ltBKA, left lower leg, aortic bypass right leg, right leg fasciotomy.pt stated had another vascular sx after the fasciotomy at [facility] unclear as to exactly what was done Rt BKA Past Anesthesia/Blood Transfusion Reactions: No Reported Reaction Additional Past Anesthesia/Blood Transfusion Reaction / Comment(s): pt stated has had a blood transfusion in past-no reaction. Past Psychological History: Anxiety, Depression Smoking Status: Former smoker Past Alcohol Use History: None Reported Past Drug Use History: None Reported - Past Family History Mother History Unknown: Yes Additional Family Medical History / Comment(s): MS, legally blind, cataracts Father Family Medical History: No Reported History Additional Family Medical History / Comment(s): Was younger when he , car accident <Amrit Warner - Last Filed: 04/03/19 17:03> General Exam General appearance: alert, in no apparent distress Head exam: Present: atraumatic, normocephalic, normal inspection Eye exam: Present: normal appearance, PERRL, EOMI. Absent: scleral icterus, conjunctival injection, periorbital swelling Respiratory exam: Present: normal lung sounds bilaterally. Absent: respiratory distress, wheezes, rales, rhonchi, stridor Cardiovascular Exam: Present: regular rate, normal rhythm, normal heart sounds. Absent: systolic murmur, diastolic murmur, rubs, gallop, clicks Extremities exam: Present: other (Bilateral lower extremity amputations noted, left lower extremity is cooler to the touch compared to the right, no open lesions or sores. There are palpable femoral) Skin exam: Present: dry, intact, normal color. Absent: rash <Dedoe,Amrit M - Last Filed: 04/03/19 17:03> Course <Jasen Cao - Last Filed: 04/03/19 17:11> Vital Signs 04/03/19 04/03/19 04/03/19 12:27 15:38 16:00 Temperature 97.9 F Pulse Rate 102 H 100 101 H Respiratory 18 16 16 Rate Blood Pressure 151/98 O2 Sat by Pulse 100 98 100 Oximetry 04/03/19 16:02 Temperature Pulse Rate Respiratory Rate Blood Pressure 142/99 O2 Sat by Pulse Oximetry - Reevaluation(s) Reevaluation #1: 04/03/19 17:09 Patient reevaluated by myself, Dr. Cao. Patient resting comfortably in bed. Patient is complaining of leg discomfort and coolness and swelling. There is not a current swelling on exam. Patient does have bilateral amputations from similar problems. Patient does see a vascular physician out of [place] in [place] and [place]. Dr. Chinchilla. There does appear to be bilateral femoral pulses. Computed tomography scan report unchanged from previous however does show chronic changes and chronic occlusions. Patient's distal left leg does appear mildly cool. No color change. Patient is very concerned regarding this and will be transferred. (Jasen Cao) Medical Decision Making - Lab Data Result diagrams: 04/03/19 13:11 04/03/19 13:11 <Amrit Warner - Last Filed: 04/03/19 17:03> - Lab Data Result diagrams: 04/03/19 13:11 04/03/19 13:11 <Jasen Cao - Last Filed: 04/03/19 17:11> - Medical Decision Making 48-year-old female presented for increasing lower extremity pain, multiple histories of occlusions and vascular surgery. Patient has a mild more bypass. CT shows fairly stable changes though she does have elevated lactic and cool to touch extremity concern for ischemic changes. Patient is adamant about being transferred to her vascular surgeon. Patient's vascular surgeon is Dr. Chinchilla who works out of [facility] and [place]. I did discuss the case with Dr. Levi at [facility] who accepts (Amrit Warner) - Lab Data Lab Results 04/03/19 04/03/19 04/03/19 Range/Units 13:11 13:11 13:11 WBC 5.6 (3.8-10.6) k/uL RBC 3.92 (3.80-5.40) m/uL Hgb 11.6 (11.4-16.0) gm/dL Hct 38.5 (34.0-46.0) % MCV 98.4 (80.0-100.0) fL MCH 29.7 (25.0-35.0) pg MCHC 30.1 L (31.0-37.0) g/dL RDW 15.1 (11.5-15.5) % Plt Count 257 (150-450) k/uL Neutrophils % 78 % Lymphocytes % 15 % Monocytes % 3 % Eosinophils % 3 % Basophils % 0 % Neutrophils # 4.3 (1.3-7.7) k/uL Lymphocytes # 0.8 L (1.0-4.8) k/uL Monocytes # 0.2 (0-1.0) k/uL Eosinophils # 0.2 (0-0.7) k/uL Basophils # 0.0 (0-0.2) k/uL Hypochromasia Moderate PT (9.0-12.0) sec INR (<1.2) APTT (22.0-30.0) sec Sodium 137 (137-145) mmol/L Potassium 4.3 (3.5-5.1) mmol/L Chloride 105 (98-107) mmol/L Carbon Dioxide 21 L (22-30) mmol/L Anion Gap 11 mmol/L BUN 13 (7-17) mg/dL Creatinine 0.86 (0.52-1.04) mg/dL Est GFR (CKD-EPI)AfAm >90 (>60 ml/min/1.73 sqM) Est GFR (CKD-EPI)NonAf 80 (>60 ml/min/1.73 sqM) Glucose 149 H (74-99) mg/dL Lactic Ac Sepsis Rflx Plasma Lactic Acid Faisal 3.1 H* (0.7-2.0) mmol/L Calcium 8.9 (8.4-10.2) mg/dL 04/03/19 04/03/19 Range/Units 13:11 13:34 WBC (3.8-10.6) k/uL RBC (3.80-5.40) m/uL Hgb (11.4-16.0) gm/dL Hct (34.0-46.0) % MCV (80.0-100.0) fL MCH (25.0-35.0) pg MCHC (31.0-37.0) g/dL RDW (11.5-15.5) % Plt Count (150-450) k/uL Neutrophils % % Lymphocytes % % Monocytes % % Eosinophils % % Basophils % % Neutrophils # (1.3-7.7) k/uL Lymphocytes # (1.0-4.8) k/uL Monocytes # (0-1.0) k/uL Eosinophils # (0-0.7) k/uL Basophils # (0-0.2) k/uL Hypochromasia PT 10.7 (9.0-12.0) sec INR 1.0 (<1.2) APTT 26.7 (22.0-30.0) sec Sodium (137-145) mmol/L Potassium (3.5-5.1) mmol/L Chloride (98-107) mmol/L Carbon Dioxide (22-30) mmol/L Anion Gap mmol/L BUN (7-17) mg/dL Creatinine (0.52-1.04) mg/dL Est GFR (CKD-EPI)AfAm (>60 ml/min/1.73 sqM) Est GFR (CKD-EPI)NonAf (>60 ml/min/1.73 sqM) Glucose (74-99) mg/dL Lactic Ac Sepsis Rflx Y Plasma Lactic Acid Faisal (0.7-2.0) mmol/L Calcium (8.4-10.2) mg/dL Disposition - Out of Hospital Transfer - Req. Specs Out of Hospital Transfer - Requested Specifics: Other Emergency Center ([facility]) <Amrit Warner - Last Filed: 04/03/19 17:03> <Jasen Cao - Last Filed: 04/03/19 17:11> Clinical Impression: Arterial occlusion, Lactic acidosis, Lower limb ischemia Disposition: OTHER INSTITUTION NOT DEFINED Condition: Stable Referrals: None,Stated [Primary Care Provider] - 1-2 days
[2019-04-03 13:30] LABS: Anion Gap 11 mmol/L; Blood Urea Nitrogen 13 mg/dL (7-17); Calcium 8.9 mg/dL (8.4-10.2); Carbon Dioxide 21 mmol/L (22-30); Chloride 105 mmol/L (98-107); Glucose 149 mg/dL (74-99); Potassium 4.3 mmol/L (3.5-5.1); Sodium 137 mmol/L (137-145)
[2019-04-03 13:42] LABS: Basophils % (A) 0 %; Eosinophils # (A) 0.2 k/uL (0-0.7); Eosinophils % (A) 3 %; HCT 38.5 % (34.0-46.0); HGB 11.6 gm/dL (11.4-16.0); Hypochromasia Moderate; Lymphocytes # (A) 0.8 k/uL (1.0-4.8); Lymphocytes % (A) 15 %; MCH 29.7 pg (25.0-35.0); MCHC 30.1 g/dL (31.0-37.0); MCV 98.4 fL (80.0-100.0); Mean Platelet Volume 8.1; Monocytes # (A) 0.2 k/uL (0-1.0); Monocytes % (A) 3 %; Neutrophils # (A) 4.3 k/uL (1.3-7.7); Neutrophils % (A) 78 %; Platelet Count 257 k/uL (150-450); RBC 3.92 m/uL (3.80-5.40); RDW 15.1 % (11.5-15.5); WBC 5.6 k/uL (3.8-10.6)
[2019-04-03 13:49] LABS: Partial Thromboplastin Time 26.7 sec (22.0-30.0); Prothrombin Time 10.7 sec (9.0-12.0)
[2019-04-03] MEDS ORDERED: MORPHINE SULFATE 4 MG/ML SYRINGE IVP STA (15:55)
--- NOTE | 2019-04-03 16:41 | CT ---
EXAMINATION TYPE: CT angio lower extremity BILAT DATE OF EXAM: 04/03/2019 3:33 PM COMPARISON: 10/27/2018 HISTORY: Pain CT DLP: 815.3 mGycm Automated exposure control for dose reduction was used. TECHNIQUE: Axial images 5 mm thick sections. Reconstructed images in the coronal and sagittal plane. Three-D reconstructed images are performed. Study is performed with 100 mL Isovue 350 mL of saline. FINDINGS: Vascular flow is evident within the superior mesenteric artery which perfuses the abdomen and pelvis. Lumbar vessel reconstitution may also be present. The aorta below the level of the renal arteries is obstructed. This is unchanged from 10/27/2018. Small [place] vessels are present within the lower extremities bilaterally. Bypass graft to the poplit eal artery on the left and femoral-femoral bypass crossing the midline is evident. However, no contra st within these bypass grafts is evident. Within the lower extremities, A few tiny collateral vessels within the bilateral lower extremities to the [id number] amputation on the right and extending to nearly the knee on the left is present i s evident. COMPARISON: Exam is compared to 10/27/2018. Vascularization appears similar within the [id number]. Bypass grafts previously appeared occluded as did the aorta. IMPRESSION: 1. STABLE EXAMINATION FROM 10/27/2018. 2. OCCLUSION OF THE AORTA BELOW THE LEVEL OF THE RENAL ARTERIES. SUPERFICIAL FEMORAL ARTERY SUPPLIES COLLATERAL VESSELS WITHIN THE ABDOMEN, PELVIS, AND MINISCULE COLLATERAL VESSELS WITHIN THE LOWER EXTR EMITIES. 3. FEMORAL FEMORAL BYPASS GRAFT CROSSING THE MIDLINE AND FEMORAL POPLITEAL BYPASS GRAFT EXTENDING INT O THE LEFT LOWER EXTREMITY ARE OCCLUDED, UNCHANGED FROM COMPARISON
[2019-04-03 18:08] VITALS: BP 150/111; PULSE 104; RESP 18
== END 2019-04-03 18:15 | disposition other institution (70) ==
LOC: EC 12:12
DX: I70.202 Unspecified atherosclerosis of native arteries of extremities, left leg (principal); E87.2 Acidosis; I99.8 Other disorder of circulatory system; I50.9 Heart failure, unspecified; Z79.01 Long term (current) use of anticoagulants; Z79.02 Long term (current) use of antithrombotics/antiplatelets; Z88.6 Allergy status to analgesic agent; Z88.8 Allergy status to other drugs, medicaments and biological substances; Z87.891 Personal history of nicotine dependence; Z86.73 Personal history of transient ischemic attack (TIA), and cerebral infarction without residual deficits; Z86.711 Personal history of pulmonary embolism; Z86.718 Personal history of other venous thrombosis and embolism; Z95.820 Peripheral vascular angioplasty status with implants and grafts; Z89.512 Acquired absence of left leg below knee; Z89.511 Acquired absence of right leg below knee
CPT/HCPCS: 99284; 96374; 96375; 36415; 80048; 83605; 85025; 85610; 85730; 73706; J2270; J1170; Q9967

== ENCOUNTER 2019-04-09 15:17 | Inpatient (IN) | payer MEDICARE, OTHER ==
[2019-04-09] MEDS ORDERED: SODIUM CHLORIDE 0.9% 1,000 ML IV STA (15:37)
--- NOTE | 2019-04-09 16:32 | ED ---
Recheck HPI - General Chief Complaint: Recheck/Abnormal Lab/Rx Stated Complaint: renal failure/clots in lung & legs Time Seen by Provider: 04/09/19 15:37 Source: family, RN notes reviewed, old records reviewed Mode of arrival: wheelchair Limitations: physical limitation - History of Present Illness Initial Comments: This is a 48-year-old female the ER for evaluation well-known to facility for multiple ER visits, multiple episodes needing to be transferred. Patient's complicated medical history, patient coming in today with increased swelling and edema of lower extremity and increasing shortness of breath. Patient's poor strain currently secondary to being very emotional over her clinical state and medical history. MD Complaint: other (recheck leg swelling, SOB, DVT, PE) -: days(s) Returns Today for: persistent/worsening pain related to initial visit, other (increased swelling) Symptoms Since Prior Visit: worsening pain, worsening swelling Associated Symptoms: chest pain, shortness of breath, malaise - Related Data Home Medications Medication Instructions Recorded Confirmed Clopidogrel Bisulfate [Plavix] 75 mg PO DAILY 12/06/18 04/09/19 Cyclobenzaprine [Flexeril] 10 mg PO TID PRN 12/27/18 04/09/19 Albuterol Sulfate [Proair Hfa] 1 puff INHALATION RT-Q6H PRN 04/09/19 04/09/19 Enoxaparin [Lovenox] 40 mg SQ DAILY 04/09/19 04/09/19 Previous Rx's Medication Instructions Recorded Nitroglycerin Sl Tabs [Nitrostat] 0.4 mg SUBLINGUAL Q5M PRN tab 12/28/18 Famotidine [Pepcid] 20 mg PO DAILY #20 tab 03/11/19 Lidocaine 5% Patch [Lidoderm 5% 1 patch TOPICAL DAILY #30 patch 03/11/19 Patch] Allergies Allergy/AdvReac Type Severity Reaction Status Date / Time ibuprofen Allergy Unknown Verified 04/09/19 16:04 trazodone Allergy Chest Pain Verified 04/09/19 16:04 Review of Systems ROS Statement: Those systems with pertinent positive or pertinent negative responses have been documented in the HPI. ROS Other: All systems not noted in ROS Statement are negative. Past Medical History Past Medical History: Asthma, Heart Failure, CVA/TIA, Deep Vein Thrombosis (DVT), Osteoarthritis (OA), Pulmonary Embolus (PE), Renal Disease Additional Past Medical History / Comment(s): sticky platelet syndrome, bronchitis, anx/depression, falls renal failure History of Any Multi-Drug Resistant Organisms: ESBL Date of last positivie culture/infection: 10/15/18 ESBL MDRO Source:: Urine Past Surgical History: Cholecystectomy Additional Past Surgical History / Comment(s): ltBKA, left lower leg, aortic bypass right leg, right leg fasciotomy.pt stated had another vascular sx after the fasciotomy at [facility] unclear as to exactly what was done Rt BKA Past Anesthesia/Blood Transfusion Reactions: No Reported Reaction Additional Past Anesthesia/Blood Transfusion Reaction / Comment(s): pt stated has had a blood transfusion in past-no reaction. Past Psychological History: Anxiety, Depression Smoking Status: Former smoker Past Alcohol Use History: None Reported Past Drug Use History: None Reported - Past Family History Mother History Unknown: Yes Additional Family Medical History / Comment(s): MS, legally blind, cataracts Father Family Medical History: No Reported History Additional Family Medical History / Comment(s): Was younger when he , car accident General Exam Limitations: physical limitation General appearance: alert, in no apparent distress Head exam: Present: atraumatic, normocephalic, normal inspection Eye exam: Present: normal appearance, PERRL, EOMI. Absent: scleral icterus, conjunctival injection, periorbital swelling ENT exam: Present: normal exam, mucous membranes moist Neck exam: Present: normal inspection. Absent: tenderness, meningismus, lymphad enopathy Respiratory exam: Present: normal lung sounds bilaterally. Absent: respiratory distress, wheezes, rales, rhonchi, stridor Cardiovascular Exam: Present: regular rate, normal rhythm, normal heart sounds. Absent: systolic murmur, diastolic murmur, rubs, gallop, clicks GI/Abdominal exam: Present: soft, normal bowel sounds. Absent: distended, tenderness, guarding, rebound, rigid Extremities exam: Present: normal inspection, full ROM, normal capillary refill. Absent: tenderness, pedal edema, joint swelling, calf tenderness Back exam: Present: normal inspection Neurological exam: Present: alert, oriented X3, CN II-XII intact Psychiatric exam: Present: normal affect, normal mood Skin exam: Present: warm, dry, intact, normal color. Absent: rash Course Vital Signs 04/09/19 04/09/19 04/09/19 15:31 18:45 19:00 Temperature 97.0 F L Pulse Rate 95 93 Respiratory 18 16 Rate Blood Pressure 121/88 116/87 116/87 O2 Sat by Pulse 99 Oximetry 04/09/19 19:30 Temperature Pulse Rate 91 Respiratory 16 Rate Blood Pressure 125/91 O2 Sat by Pulse Oximetry - Reevaluation(s) Reevaluation #1: Medical record is reviewed including recent ER visit with Hospital transfer Patient's in no respiratory distress, no chest pain Medical Decision Making - Medical Decision Making 48 female the ER for evaluation. Patient has multiple medical Coy's and conditions, patient significant history recently includes multiple DVTs, patient on blood thinners currently, she is compliant with medication, patient also has CHF and renal failure - Lab Data Result diagrams: 04/09/19 16:39 04/09/19 16:39 Lab Results 04/09/19 04/09/19 04/09/19 Range/Units 16:39 16:39 16:39 WBC 6.3 (3.8-10.6) k/uL RBC 3.29 L (3.80-5.40) m/uL Hgb 9.8 L D (11.4-16.0) gm/dL Hct 32.1 L (34.0-46.0) % MCV 97.8 (80.0-100.0) fL MCH 29.7 (25.0-35.0) pg MCHC 30.4 L (31.0-37.0) g/dL RDW 17.5 H (11.5-15.5) % Plt Count 338 (150-450) k/uL Neutrophils % 70 % Lymphocytes % 20 % Monocytes % 6 % Eosinophils % 3 % Basophils % 0 % Neutrophils # 4.4 (1.3-7.7) k/uL Lymphocytes # 1.2 (1.0-4.8) k/uL Monocytes # 0.4 (0-1.0) k/uL Eosinophils # 0.2 (0-0.7) k/uL Basophils # 0.0 (0-0.2) k/uL Hypochromasia Moderate Anisocytosis Slight Macrocytosis Slight PT 11.1 (9.0-12.0) sec INR 1.1 (<1.2) APTT 30.4 H (22.0-30.0) sec D-Dimer 0.60 H (<0.60) mg/L FEU Sodium 138 (137-145) mmol/L Potassium 4.7 (3.5-5.1) mmol/L Chloride 115 H (98-107) mmol/L Carbon Dioxide 15 L (22-30) mmol/L Anion Gap 8 mmol/L BUN 24 H (7-17) mg/dL Creatinine 1.19 H (0.52-1.04) mg/dL Est GFR (CKD-EPI)AfAm 62 (>60 ml/min/1.73 sqM) Est GFR (CKD-EPI)NonAf 53 (>60 ml/min/1.73 sqM) Glucose 106 H (74-99) mg/dL Calcium 8.2 L (8.4-10.2) mg/dL Phosphorus 4.4 (2.5-4.5) mg/dL Magnesium 1.9 (1.6-2.3) mg/dL Total Bilirubin 0.4 (0.2-1.3) mg/dL AST 20 (14-36) U/L ALT 29 (9-52) U/L Alkaline Phosphatase 124 (38-126) U/L Troponin I (0.000-0.034) ng/mL NT-Pro-B Natriuret Pep pg/mL Total Protein 5.8 L (6.3-8.2) g/dL Albumin 2.4 L (3.5-5.0) g/dL Urine Color Urine Appearance (Clear) Urine pH (5.0-8.0) Ur Specific [place] (1.001-1.035) Urine Protein (Negative) Urine Glucose (UA) (Negative) Urine Ketones (Negative) Urine Blood (Negative) Urine Nitrite (Negative) Urine Bilirubin (Negative) Urine Urobilinogen (<2.0) mg/dL Ur Leukocyte Esterase (Negative) Urine RBC (0-5) /hpf Urine WBC (0-5) /hpf Urine WBC Clumps (None) /hpf Ur Squamous Epith Cells (0-4) /hpf Urine Mucus (None) /hpf 04/09/19 04/09/19 04/09/19 Range/Units 16:39 16:39 18:45 WBC (3.8-10.6) k/uL RBC (3.80-5.40) m/uL Hgb (11.4-16.0) gm/dL Hct (34.0-46.0) % MCV (80.0-100.0) fL MCH (25.0-35.0) pg MCHC (31.0-37.0) g/dL RDW (11.5-15.5) % Plt Count (150-450) k/uL Neutrophils % % Lymphocytes % % Monocytes % % Eosinophils % % Basophils % % Neutrophils # (1.3-7.7) k/uL Lymphocytes # (1.0-4.8) k/uL Monocytes # (0-1.0) k/uL Eosinophils # (0-0.7) k/uL Basophils # (0-0.2) k/uL Hypochromasia Anisocytosis Macrocytosis PT (9.0-12.0) sec INR (<1.2) APTT (22.0-30.0) sec D-Dimer (<0.60) mg/L FEU Sodium (137-145) mmol/L Potassium (3.5-5.1) mmol/L Chloride (98-107) mmol/L Carbon Dioxide (22-30) mmol/L Anion Gap mmol/L BUN (7-17) mg/dL Creatinine (0.52-1.04) mg/dL Est GFR (CKD-EPI)AfAm (>60 ml/min/1.73 sqM) Est GFR (CKD-EPI)NonAf (>60 ml/min/1.73 sqM) Glucose (74-99) mg/dL Calcium (8.4-10.2) mg/dL Phosphorus (2.5-4.5) mg/dL Magnesium (1.6-2.3) mg/dL Total Bilirubin (0.2-1.3) mg/dL AST (14-36) U/L ALT (9-52) U/L Alkaline Phosphatase (38-126) U/L Troponin I <0.012 (0.000-0.034) ng/mL NT-Pro-B Natriuret Pep 45350 pg/mL Total Protein (6.3-8.2) g/dL Albumin (3.5-5.0) g/dL Urine Color Yellow Urine Appearance Cloudy H (Clear) Urine pH 5.5 (5.0-8.0) Ur Specific [place] 1.020 (1.001-1.035) Urine Protein 1+ H (Negative) Urine Glucose (UA) Negative (Negative) Urine Ketones Negative (Negative) Urine Blood Negative (Negative) Urine Nitrite Negative (Negative) Urine Bilirubin Negative (Negative) Urine Urobilinogen <2.0 (<2.0) mg/dL Ur Leukocyte Esterase Moderate H (Negative) Urine RBC 1 (0-5) /hpf Urine WBC 8 H (0-5) /hpf Urine WBC Clumps Few H (None) /hpf Ur Squamous Epith Cells 16 H (0-4) /hpf Urine Mucus Rare H (None) /hpf - EKG Data -: EKG Interpreted by Me (EKG shows sinus rhythm rate of 89, [place] 150, QRS 70, QTc 479) - Radiology Data Radiology results: report reviewed (Chest x-ray positive for CHF and pulmonary edema), image reviewed Disposition Clinical Impression: Sticky platelet syndrome, Pulmonary embolism, History of blood clots, Congestive heart failure Disposition: ADMITTED IP TO THIS HOSP Condition: Fair Is patient prescribed a controlled substance at d/c from ED?: No
[2019-04-09 16:52] LABS: Anisocytosis Slight; Basophils % (A) 0 %; Eosinophils # (A) 0.2 k/uL (0-0.7); Eosinophils % (A) 3 %; HCT 32.1 % (34.0-46.0); Hypochromasia Moderate; Lymphocytes # (A) 1.2 k/uL (1.0-4.8); Lymphocytes % (A) 20 %; MCH 29.7 pg (25.0-35.0); MCHC 30.4 g/dL (31.0-37.0); MCV 97.8 fL (80.0-100.0); Macrocytosis Slight; Mean Platelet Volume 7.7; Monocytes # (A) 0.4 k/uL (0-1.0); Monocytes % (A) 6 %; Neutrophils # (A) 4.4 k/uL (1.3-7.7); Neutrophils % (A) 70 %; Platelet Count 338 k/uL (150-450); RBC 3.29 m/uL (3.80-5.40); RDW 17.5 % (11.5-15.5); WBC 6.3 k/uL (3.8-10.6)
[2019-04-09 17:03] LABS: Albumin 2.4 g/dL (3.5-5.0); Calcium 8.2 mg/dL (8.4-10.2); Magnesium 1.9 mg/dL (1.6-2.3); Phosphorus 4.4 mg/dL (2.5-4.5); Potassium 4.7 mmol/L (3.5-5.1); Total Bilirubin 0.4 mg/dL (0.2-1.3); Total Protein 5.8 g/dL (6.3-8.2)
[2019-04-09 17:05] LABS: HGB 9.8 gm/dL (11.4-16.0); INR 1.1 (<1.2); Partial Thromboplastin Time 30.4 sec (22.0-30.0); Prothrombin Time 11.1 sec (9.0-12.0)
[2019-04-09 17:08] LABS: D-Dimer 0.6 mg/L FEU (<0.60)
--- NOTE | 2019-04-09 17:08 | XR ---
EXAMINATION TYPE: XR chest 2V DATE OF EXAM: 04/09/2019 COMPARISON: Chest x-ray March 08, 2019. CTA chest March 05, 2019. HISTORY: Weakness. TECHNIQUE: Frontal and lateral views of the chest are obtained. FINDINGS: There is cardiomegaly with bibasilar opacities in central vascular congestion. The osseo us structures are intact. IMPRESSION: Findings are consistent with CHF exacerbation as there is cardiomegaly with new central vascular congestion and small to moderate-sized bilateral pleural effusions with associated compressi ve atelectasis. Correlate clinically.
[2019-04-09] MEDS ORDERED: MORPHINE SULFATE 4 MG/ML SYRINGE IVP STA (17:09)
[2019-04-09 19:13] LABS: Appearance,Urine Cloudy (Clear); Bilirubin,Urine Negative (Negative); Blood,Urine Negative (Negative); Color,Urine Yellow; Glucose,Urine (UA) Negative (Negative); Ketones,Urine Negative (Negative); Leukocyte Esterase,Urine Moderate (Negative); Mucus,Urine Rare /hpf; Nitrite,Urine Negative (Negative); PH, Urine 5.5 (5.0-8.0); Protein,Urine 1+ (Negative); RBC,Urine 1 /hpf (0-5); Squamous Epithelial Cell,Urine 16 /hpf (0-4); Urobilinogen,Urine <2.0 mg/dL (<2.0)
[2019-04-09] MEDS: MORPHINE SULFATE 4 MG/ML SYRINGE IVP PRN (21:10)
[2019-04-09] MEDS: FUROSEMIDE 10 MG/ML 4 ML VIAL IV SCH (21:16)
[2019-04-09] MEDS ORDERED: NITROGLYCERIN SL TABS 0.4 MG TAB SUBLINGUAL PRN (21:35)
[2019-04-09] MEDS ORDERED: CYCLOBENZAPRINE 10 MG TAB PO PRN (21:35)
--- NOTE | 2019-04-09 21:57 | P.HPIM ---
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 Recently diagnosed with left LE DVT and PE within last week with remote history of recurrent VTE supposedly was on xarelto but failed therapy. now on lovenox theraputic dose Patient was admitted to our facility just recently for pneumonia and then was transferred to [facility] for vascular evaluation of lower extremities where she was diagnosed with PE and DVT and was placed on Lovenox. Patient was discharged home yesterday however overnight she noticed increased swelling in her legs she couldn't put her prosthetics and she also felt heavy breathing not feeling well overall and decided come back to the hospital. She claims that she was not urinating home but doesn't feel that she had the urge denies any dysuria or hematuria or any abdominal pain. Her main concern was the overall swelling mainly in her flanks and bilateral legs and then D heaviness shallow breathing that she was experiencing denies any associated chest pain denies any fevers chills or coughing denies any nausea vomiting or GI bleeding. She reports being compliant with her medications. She denies any history of coronary artery disease. In general she is independent in her living she lives alone at in her own apartment her sister sometimes lives with her but she doesn't need her help. She doesn't use any devices for ambulation she has to prosthetics that she can wear walk and drive on her own. She reports her current history of venous thromboembolic some she struggles with Coumadin initially and then was getting good results with Lovenox up until recently when she is was switched to Xarelto, however she was just diagnosed with PE/DVT at [facility] in [place], so they switched her back to Lovenox full dose twice a day for treatment. She also reports recent renal issues for which she's been seeing nephrology. In the ER labs showed anemia at her baseline, slightly elevated creatinine. Ch est x-ray showed bilateral effusions with vascular congestion on exam she had bilateral lower extremity edema. None any on gap metabolic acidosis mild and low albumin urine sample was dirty. Patient admitted for management of CHF which she had an echo done in 2018 showing left ventricular ejection fraction less than 20% Review of Systems Pertinent positives as noted in HPI. All other systems were reviewed and are negative Past Medical History Past Medical History: Asthma, Heart Failure, CVA/TIA, Deep Vein Thrombosis (D VT), Osteoarthritis (OA), Pulmonary Embolus (PE), Renal Disease Additional Past Medical History / Comment(s): sticky platelet syndrome, bronchitis, anx/depression, falls renal failure History of Any Multi-Drug Resistant Organisms: ESBL Date of last positivie culture/infection: 10/15/18 ESBL MDRO Source:: Urine Past Surgical History: Cholecystectomy Additional Past Surgical History / Comment(s): ltBKA, left lower leg, aortic bypass right leg, right leg fasciotomy.pt stated had another vascular sx after the fasciotomy at [facility] unclear as to exactly what was done Rt AKA Past Anesthesia/Blood Transfusion Reactions: No Reported Reaction Additional Past Anesthesia/Blood Transfusion Reaction / Comment(s): pt stated has had a blood transfusion in past-no reaction. Past Psychological History: Anxiety, Depression Smoking Status: Former smoker Past Alcohol Use History: None Reported Past Drug Use History: None Reported - Past Family History Mother History Unknown: Yes Additional Family Medical History / Comment(s): MS, legally blind, cataracts Father Family Medical History: No Reported History Additional Family Medical History / Comment(s): Was younger when he , car accident Medications and Allergies Home Medications Medication Instructions Recorded Confirmed Type Clopidogrel Bisulfate [Plavix] 75 mg PO DAILY 12/06/18 04/09/19 History Cyclobenzaprine [Flexeril] 10 mg PO TID PRN 12/27/18 04/09/19 History Nitroglycerin Sl Tabs [Nitrostat] 0.4 mg SUBLINGUAL Q5M PRN tab 12/28/18 04/09/19 Rx Famotidine [Pepcid] 20 mg PO DAILY #20 tab 03/11/19 04/09/19 Rx Lidocaine 5% Patch [Lidoderm 5% 1 patch TOPICAL DAILY #30 patch 03/11/19 04/09/19 Rx Patch] Albuterol Sulfate [Proair Hfa] 1 puff INHALATION RT-Q6H PRN 04/09/19 04/09/19 History Enoxaparin [Lovenox] 40 mg SQ DAILY 04/09/19 04/09/19 History Allergies Allergy/AdvReac Type Severity Reaction Status Date / Time ibuprofen Allergy Unknown Verified 04/09/19 16:04 trazodone Allergy Chest Pain Verified 04/09/19 16:04 Physical Exam Vitals: Vital Signs Temp Pulse Resp BP Pulse Ox 04/09/19 18:45 116/87 04/09/19 15:31 97.0 F L 95 18 121/88 99 Intake and Output 04/09/19 04/09/19 04/09/19 06:59 14:59 22:59 Other: Weight 40.823 kg Constitutional: No acute distress, conversant, pleasant Eyes: Anicteric sclerae, moist conjunctiva, no lid-lag Pupils equal round reactive to light ENMT: NC/AT Oropharynx clear, no erythema, or exudates Neck: Supple, FROM, no masses, or JVD No carotid bruits No thyromegaly Lungs: Decreased breath sounds at lung bases with inspiratory rales Clear to percussion Normal respiratory effort, no accessory muscle use Cardiovascular: Heart regular in rate and rhythm, No murmurs, gallops, or rubs Bilateral lower extremity pitting edema +1 Abdominal: Soft, pitting edema in bilateral flanks Nontender, no guarding, rebound or rigidity Abdomen moving with respiration Normoactive bowel sounds No hepatomegaly, No splenomegaly No palpable mass No abdominal wall hernia noted Skin: Normal temperature, tone, texture, turgor No induration No subcutaneous nodules No rash, lesions No ulcers Extremities: No digital cyanosis No clubbing Patient has 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 Radial pulses intact and symmetrical Psychiatric: Alert and oriented to person, place and time Appropriate affect fair judgment Neuro Muscles Strength 4/5 in all 4 extremities Sensation to light touch grossly present throughout Cranial nerves II-XII grossly intact No focal sensory deficits Lymphatics: no palpable cervical or supraclavicular , or inguinal lymph nodes Results CBC & Chem 7: 04/09/19 16:39 04/09/19 16:39 Labs: Abnormal Lab Results - Last 24 Hours (Table) 04/09/19 04/09/19 04/09/19 Range/Units 16:39 16:39 16:39 RBC 3.29 L (3.80-5.40) m/uL Hgb 9.8 L D (11.4-16.0) gm/dL Hct 32.1 L (34.0-46.0) % MCHC 30.4 L (31.0-37.0) g/dL RDW 17.5 H (11.5-15.5) % APTT 30.4 H (22.0-30.0) sec D-Dimer 0.60 H (<0.60) mg/L FEU Chloride 115 H (98-107) mmol/L Carbon Dioxide 15 L (22-30) mmol/L BUN 24 H (7-17) mg/dL Creatinine 1.19 H (0.52-1.04) mg/dL Glucose 106 H (74-99) mg/dL Calcium 8.2 L (8.4-10.2) mg/dL Total Protein 5.8 L (6.3-8.2) g/dL Albumin 2.4 L (3.5-5.0) g/dL Urine Appearance (Clear) Urine Protein (Negative) Ur Leukocyte Esterase (Negative) Urine WBC (0-5) /hpf Urine WBC Clumps (None) /hpf Ur Squamous Epith Cells (0-4) /hpf Urine Mucus (None) /hpf 04/09/19 Range/Units 18:45 RBC (3.80-5.40) m/uL Hgb (11.4-16.0) gm/dL Hct (34.0-46.0) % MCHC (31.0-37.0) g/dL RDW (11.5-15.5) % APTT (22.0-30.0) sec D-Dimer (<0.60) mg/L FEU Chloride (98-107) mmol/L Carbon Dioxide (22-30) mmol/L BUN (7-17) mg/dL Creatinine (0.52-1.04) mg/dL Glucose (74-99) mg/dL Calcium (8.4-10.2) mg/dL Total Protein (6.3-8.2) g/dL Albumin (3.5-5.0) g/dL Urine Appearance Cloudy H (Clear) Urine Protein 1+ H (Negative) Ur Leukocyte Esterase Moderate H (Negative) Urine WBC 8 H (0-5) /hpf Urine WBC Clumps Few H (None) /hpf Ur Squamous Epith Cells 16 H (0-4) /hpf Urine Mucus Rare H (None) /hpf Assessment and Plan Assessment: 48-year-old female with 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 Recently diagnosed with left LE DVT and PE within last week with remote history of recurrent VTE supposedly was on xarelto but failed therapy. now on lovenox theraputic dose Patient admitted as an inpatient with anticipated length of stay more than 48 hours due to acute systolic CHF exacerbation. Plan: Acute on chronic systolic CHF exacerbation Continue Coreg Patient is not on AceI or ARB, patient is not on spironolactone IV Lasix 3 times a day Cardiology consult Cardiac monitoring Anemia of chronic disease Patient denies any GI bleeding None Anion gap metabolic acidosis Slightly elevated creatinine of 1.19 baseline of 0.91, with possible oliguria Monitor urine output Avoid nephrotoxic meds Nephrology consult By mouth bicarb Recent diagnosis of recurrent venous thromboembolic Continue with Lovenox full dose twice a day Monitor renal function for possible adjustment of dosing Chronic conditions 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 Preformed a thorough record review from recent hospitalization patient hospit alized for pneumonia within the past 2 weeks and then transferred to [facility] in [place] for vascular evaluation where she was diagnosed with PE and DVT in left lower extremity and was started on Lovenox full dose Surrogate decision-maker: Patient mother CODE STATUS: Full code Discussed with: Patient, ER Anticipated discharge: 48-[address]: Pending clinical course patient might benefit from SNF A total of 60 minutes was spent on the care of this complex patient more than 50% of the time was spent in counseling and care coordination.
[2019-04-09] MEDS: FAMOTIDINE 20 MG TAB PO SCH (22:29)
[2019-04-09] MEDS: CLOPIDOGREL 75 MG TAB PO SCH (22:30)
[2019-04-09] MEDS: SODIUM BICARBONATE TAB 650 MG TAB PO SCH (22:31)
[2019-04-09] MEDS: MIRTAZAPINE 15 MG TAB PO SCH (22:32)
[2019-04-09] MEDS: CARVEDILOL 6.25 MG TAB PO SCH (22:32)
[2019-04-09] MEDS: ENOXAPARIN 40 MG/0.4 ML SYRINGE SQ SCH (22:32)
[2019-04-09] MEDS: ALPRAZolam 1 MG TAB PO PRN (22:38)
[2019-04-09] MEDS: IPRATROPIUM-ALBUTEROL 3 ML NEB INHALATION PRN (22:59)
[2019-04-10] MEDS: MORPHINE SULFATE 4 MG/ML SYRINGE IVP PRN ×4 (02:47→20:28)
[2019-04-10] MEDS: FUROSEMIDE 10 MG/ML 4 ML VIAL IV SCH ×2 (05:21→20:28)
[2019-04-10] MEDS: ALPRAZolam 1 MG TAB PO PRN (06:35)
[2019-04-10] MEDS: IPRATROPIUM-ALBUTEROL 3 ML NEB INHALATION PRN (07:00)
[2019-04-10 07:19] LABS: ABG HCO3 18 mmol/L (21-25); ABG Oxygen Saturation 98.6 % (94-97); ABG PCO2 31 mmHg (35-45); ABG PH 7.37 (7.35-7.45); ABG PO2 280 mmHg (83-108); ABG TCO2 19 mmol/L (19-24)
[2019-04-10 07:20] LABS: Glucose,Whole Blood 126 mg/dL (75-99)
--- NOTE | 2019-04-10 08:33 | CT ---
EXAMINATION TYPE: CT brain wo con DATE OF EXAM: 04/10/2019 COMPARISON: Previous study dated 07/09/2017 HISTORY: Weakness CT DLP: 1099.4 mGycm Automated exposure control for dose reduction was used. 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 There are 2 areas of encephal omalacia involving the posterior left parietal region and the right occipital region. These were also present previously. There is no mass effect, midline shift or intracranial blood. Visualized portions of the paranasal sinuses and mastoids are clear. The bony calvarium is intact. IMPRESSION: 1. NO ACUTE INTRACRANIAL ABNORMALITY. 2. EVIDENCE OF OLD, BILATERAL INSULTS.
[2019-04-10 08:39] LABS: Glucose,Whole Blood 66 mg/dL (75-99)
--- NOTE | 2019-04-10 08:39 | CT ---
EXAMINATION TYPE: CT angio chest DATE OF EXAM: 04/10/2019 8:27 AM COMPARISON: Previous study dated 03/05/2019 HISTORY: Shortness of breath and elevated d-dimer. CT DLP: 1099.4 mGycm Automated exposure control for dose reduction was used. CONTRAST: CTA scan of the thorax is performed with IV Contrast, patient injected with 75 mL of Isovue 370, pulm onary embolism protocol. . FINDINGS: There are bilateral pleural effusions, greater on the right than the left. There are patchy groundglass opacities throughout both lungs, greater on the right than the left. This may represent alveolitis or atypical pneumonia. There is no evidence of pulmonary embolus. The aorta is normal in caliber. The heart is mildly enlarg ed. No definite pericardial fluid is seen. There is been a previous gastric stapling. Visualized portions of the upper abdomen are otherwise unr emarkable. IMPRESSION: #1 THIS EXAMINATION IS NEGATIVE FOR PULMONARY EMBOLUS. 2. BILATERAL EFFUSIONS, GREATER ON THE RIGHT THAN THE LEFT. 3. PATCHY GROUNDGLASS OPACITIES DO NOT HAVE THE TYPICAL APPEARANCE OF CONGESTIVE HEART FAILURE AND MA Y REPRESENT ALVEOLITIS OR ATYPICAL PNEUMONIA SUCH UIP.
[2019-04-10 08:55] LABS: Glucose,Whole Blood 113 mg/dL (75-99)
[2019-04-10] MEDS: ENOXAPARIN 40 MG/0.4 ML SYRINGE SQ SCH ×2 (09:25→20:27)
[2019-04-10] MEDS: CLOPIDOGREL 75 MG TAB PO SCH (09:25)
[2019-04-10] MEDS: FAMOTIDINE 20 MG TAB PO SCH (09:25)
[2019-04-10] MEDS: CARVEDILOL 6.25 MG TAB PO SCH ×2 (09:25→17:06)
[2019-04-10] MEDS: SODIUM BICARBONATE TAB 650 MG TAB PO SCH ×2 (09:25→20:26)
[2019-04-10] MEDS: LIDOCAINE 5% PATCH TOPICAL SCH (09:46)
[2019-04-10 09:53] LABS: Anisocytosis Slight; Basophils % (A) 0 %; Eosinophils # (A) 0.1 k/uL (0-0.7); Eosinophils % (A) 3 %; HCT 36.1 % (34.0-46.0); HGB 10.7 gm/dL (11.4-16.0); Hypochromasia Marked; Lymphocytes # (A) 1.1 k/uL (1.0-4.8); Lymphocytes % (A) 20 %; MCH 29.7 pg (25.0-35.0); MCHC 29.5 g/dL (31.0-37.0); MCV 100.4 fL (80.0-100.0); Macrocytosis Slight; Mean Platelet Volume 10.1; Monocytes # (A) 0.4 k/uL (0-1.0); Monocytes % (A) 6 %; Neutrophils # (A) 3.9 k/uL (1.3-7.7); Neutrophils % (A) 70 %; Platelet Count 229 k/uL (150-450); RDW 17.8 % (11.5-15.5); WBC 5.5 k/uL (3.8-10.6)
--- NOTE | 2019-04-10 09:58 | P.PN ---
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 Patient was recently at [facility] and diagnosed with a left lower extremity DVT and pulmonary embolism. She had been on Xarelto and was switched back to Lovenox. In the ER she underwent an extensive evaluation. Her vital signs within normal limits on arrival. Laboratory analysis showed hemoglobin 9.8, which is near her baseline. D-dimer was slightly elevated at 0.6. Lab work showed a hyperchloremic metabolic acidosis with a carbon dioxide of 15. She also had a slightly elevated creatinine at 1.19. Chest x-ray showed bilateral effusions with vascular congestion and lower extremity edema. She was started on Lasix. She is admitted for acute exacerbation of CHF. I was called to see patient at 7:05 in the morning secondary to altered mentation. At that time vitals were stable. Glucose was 126. ABG was obtained which showed a compensated metabolic acidosis. Patient was alert to self. I ordered a stat head CT which showed no acute process. Ordered a stat CTA of the chest which did not show any definitive pulmonary embolism, but did show large pleural effusion with parabronchial coughing. Patient was subsequently transferred to the ICU as selective overflow. GEN: Lethargic, mild distress, appears older than stated age Lungs: course ronchi bilateral, no accessory muscle use CV: S1S2 reg without murmur, + radial pulses b/l - had received remeron night prior, Xanax at 0635 and morphine at 0247 Patient reevaluated at 9:30 AM. She denies any chest pain, states her shortness of breath is slightly better than on admission, currently pain free, feeling hungry. Updated on results of imaging. Objective - Vital Signs Vital signs: Vital Signs Temp 96.7 F L 04/10/19 08:30 Pulse 83 04/10/19 08:30 Resp 21 04/10/19 08:30 BP 130/98 04/10/19 08:30 Pulse Ox 100 04/10/19 08:30 Intake & Output 04/09/19 04/10/19 04/10/19 18:59 06:59 18:59 Output Total 1400 Balance -1400 Weight 40.823 kg Output: Urine 1400 Other: Voiding Method Urinal # Voids 5 - Exam General: Ill appearing, no active distress, appears older than stated age Derm: warm, dry Head: atraumatic, normocephalic, symmetric Eyes: EOMI, no lid lag, anicteric sclera Mouth: no lip lesion, mucus membranes moist Cardiovascular: S1-S2 regular without murmur, positive radial pulses bilaterally, Lungs: Ronchi Bilateral, no accessory muscle use Abdominal: soft, nontender to palpation, no guarding, no appreciable organomegaly Ext: no gross muscle atrophy, no edema, L BKA, R AKA Neuro: CN II-XI grossly intact, no focal neuro deficits Psych: Alert, oriented, appropriate affect - Labs CBC & Chem 7: 04/09/19 16:39 04/09/19 16:39 Labs: Abnormal Lab Results - Last 24 Hours (Table) 04/09/19 04/09/19 04/09/19 Range/Units 16:39 16:39 16:39 RBC 3.29 L (3.80-5.40) m/uL Hgb 9.8 L D (11.4-16.0) gm/dL Hct 32.1 L (34.0-46.0) % MCHC 30.4 L (31.0-37.0) g/dL RDW 17.5 H (11.5-15.5) % APTT 30.4 H (22.0-30.0) sec D-Dimer 0.60 H (<0.60) mg/L FEU ABG pCO2 (35-45) mmHg ABG pO2 (83-108) mmHg ABG HCO3 (21-25) mmol/L ABG O2 Saturation (94-97) % Chloride 115 H (98-107) mmol/L Carbon Dioxide 15 L (22-30) mmol/L BUN 24 H (7-17) mg/dL Creatinine 1.19 H (0.52-1.04) mg/dL Glucose 106 H (74-99) mg/dL POC Glucose (mg/dL) (75-99) mg/dL Calcium 8.2 L (8.4-10.2) mg/dL Total Protein 5.8 L (6.3-8.2) g/dL Albumin 2.4 L (3.5-5.0) g/dL Urine Appearance (Clear) Urine Protein (Negative) Ur Leukocyte Esterase (Negative) Urine WBC (0-5) /hpf Urine WBC Clumps (None) /hpf Ur Squamous Epith Cells (0-4) /hpf Urine Mucus (None) /hpf 04/09/19 04/10/19 04/10/19 Range/Units 18:45 07:07 07:17 RBC (3.80-5.40) m/uL Hgb (11.4-16.0) gm/dL Hct (34.0-46.0) % MCHC (31.0-37.0) g/dL RDW (11.5-15.5) % APTT (22.0-30.0) sec D-Dimer (<0.60) mg/L FEU ABG pCO2 31 L (35-45) mmHg ABG pO2 280 H (83-108) mmHg ABG HCO3 18 L (21-25) mmol/L ABG O2 Saturation 98.6 H (94-97) % Chloride (98-107) mmol/L Carbon Dioxide (22-30) mmol/L BUN (7-17) mg/dL Creatinine (0.52-1.04) mg/dL Glucose (74-99) mg/dL POC Glucose (mg/dL) 126 H (75-99) mg/dL Calcium (8.4-10.2) mg/dL Total Protein (6.3-8.2) g/dL Albumin (3.5-5.0) g/dL Urine Appearance Cloudy H (Clear) Urine Protein 1+ H (Negative) Ur Leukocyte Esterase Moderate H (Negative) Urine WBC 8 H (0-5) /hpf Urine WBC Clumps Few H (None) /hpf Ur Squamous Epith Cells 16 H (0-4) /hpf Urine Mucus Rare H (None) /hpf 04/10/19 04/10/19 Range/Units 08:38 08:53 RBC (3.80-5.40) m/uL Hgb (11.4-16.0) gm/dL Hct (34.0-46.0) % MCHC (31.0-37.0) g/dL RDW (11.5-15.5) % APTT (22.0-30.0) sec D-Dimer (<0.60) mg/L FEU ABG pCO2 (35-45) mmHg ABG pO2 (83-108) mmHg ABG HCO3 (21-25) mmol/L ABG O2 Saturation (94-97) % Chloride (98-107) mmol/L Carbon Dioxide (22-30) mmol/L BUN (7-17) mg/dL Creatinine (0.52-1.04) mg/dL Glucose (74-99) mg/dL POC Glucose (mg/dL) 66 L 113 H (75-99) mg/dL Calcium (8.4-10.2) mg/dL Total Protein (6.3-8.2) g/dL Albumin (3.5-5.0) g/dL Urine Appearance (Clear) Urine Protein (Negative) Ur Leukocyte Esterase (Negative) Urine WBC (0-5) /hpf Urine WBC Clumps (None) /hpf Ur Squamous Epith Cells (0-4) /hpf Urine Mucus (None) /hpf Assessment and Plan Assessment: Acute exacerbation of systolic congestive heart failure with ejection fraction less than 20% -Lasix twice daily -Coag -Not chronically on NOLVIA inhibitor and we'll not start at this point in time secondary to elevated creatinine -Strict I's and O's, daily weights -Cardiology recommendations -Consider repeat echocardiogram to assess for improvement in ejection fraction Toxic metabolic encephalopathy -Likely secondary to polypharmacy -Decreased and next dose, continue with morphine for pain control -CT head negative, awake and alert on reassessment Hypoglycemia - This occurred after altered mentation -Encourage oral intake -Accu-Cheks every before meals, at bedtime, and 2 AM -There was concern for possible adrenal insufficiency in this patient in the past, but had been ruled out Possible acute kidney injury with non-anion gap metabolic acidosis -Continue patient's sodium bicarb from home -Would avoid IV fluids at this point in time secondary to severe CHF -Follow renal function -Avoid additional nephrotoxic agents -May worsen from contrast exposure today 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
[2019-04-10 10:02] LABS: Potassium 4.5 mmol/L (3.5-5.1)
--- NOTE | 2019-04-10 13:20 | CONS ---
CONSULTATION This patient's medical records reviewed. We are seeing the patient for cardiac evaluation. This patient just was recently discharged from the [facility] where she was diagnosed with PE and DVT and the patient was started on Lovenox. Yesterday, patient developed increasing swelling in her legs and she could not put her prosthetic and she also had some difficulty in breathing and so she came back to the hospital and she was admitted. This patient has a history of bilateral knee amputation, history of multiple DVTs and PE and cardiomyopathy. The patient has a sticky platelet syndrome and she used to be on Xarelto which is now switched to the Lovenox since her recent diagnosis of pulmonary embolism. PAST MEDICAL HISTORY: Includes history of past pulmonary embolism, history of heart failure, history of CVA, deep venous thrombosis and cardiomyopathy, history of cholecystectomy, peripheral vascular disease aortic bypass, right leg fasciotomy and the right about knee amputation. HOME MEDICATIONS: Home medications included Plavix 75 mg daily, Flexeril, Pepcid, ProAir, Lovenox. ALLERGIES: PATIENT IS ALLERGIC TO IBUPROFEN AND TRAZODONE. PHYSICAL EXAMINATION: At present reveals a 48-year-old female who does not appear to be in any acute respiratory distress. The patient's blood pressure is 133/91 mmHg, heart rate is 80 per minute. HEENT examination is negative. Neck is supple. There is no significant increase in jugular venous pressure noted. Both the carotid pulses are felt there is no bruit. Chest is symmetrical. Heart the PMI is not felt. First and second heart sounds are heard. Lungs revealed bilateral diminished air entry at bases, but otherwise no significant rales are noted. Abdomen is negative. Extremities: Patient has evidence of an amputation. Electrolytes are normal. Patient's creatinine is 1.20. BNP level is 55,300. Last BNP level was 22,000. FINAL IMPRESSION: This patient has been recently diagnosed to have a DVT and PE. The patient has a cardiomyopathy with severely impaired left ventricular systolic function. The patient came to the hospital with increasing swelling in the legs. Clinically, there is no evidence of significant left ventricular failure. However, BNP is elevated. She runs chronically elevated BNP. We will recommend to continue the patient's diuresis. Lisinopril 5 mg daily will be added. Continue the rest of the medications. MMODL / IJN: [id number] /
--- NOTE | 2019-04-10 15:11 | CONS ---
CONSULTATION REASON FOR CONSULT: Renal insufficiency. HISTORY OF THE PRESENT ILLNESS: The patient is a 48-year-old female with history of sticky platelet syndrome with resultant ischemia and history of DVT, PE, as well as a intrarenal infarct. The patient is maintained on anticoagulation. She was admitted to the hospital with complaints of increased swelling. She was also short of breath. The patient denied any fevers or chills, nausea, vomiting or diarrhea. The patient was recently hospitalized at [facility] with recurrent PE and she was switched to Lovenox. Serum creatinine was 1.19 mg/dL on admission, which is at 1.2 today. Previous creatinine has been 0.9-0.8 mg/dL. The patient follows in the office. No urinary symptoms noted at this time. The patient is incontinent. She has had good urine output. A chest CTA was performed this morning which showed no evidence of PE. Bilateral pleural effusions were noted, greater on right than left. PAST MEDICAL HISTORY: Sticky platelet syndrome. History of the intrarenal infarct, PE, recurrent DVT, recurrent PE, osteoarthritis, previous ESBL E coli infections. PAST SURGICAL HISTORY: Left BKA and right AKA, aortic bypass, right leg fasciotomy. SOCIAL HISTORY: Negative for smoking, drug abuse or alcohol abuse. Patient is a former smoker. MEDICATIONS: Prior to admission include Plavix, Flexeril, Nitrostat, Pepcid, ProAir, Lovenox. ALLERGIES: INCLUDE IBUPROFEN AND TRAZODONE. REVIEW OF SYSTEMS: As per HPI. Other systems negative. PHYSICAL EXAMINATION: Patient is comfortable, awake, not in any acute distress. Blood pressure this morning 130/98, heart rate 83 per minute. She is afebrile. Examination of the heart S1, S2. Examination lungs bilateral breath sounds are heard. Decreased breath sounds at the bases. Abdomen is soft, nontender. Examination lower extremities shows left BKA and right AKA. [employer] exam shows patient moving all 4 extremities. LABS SHOW: Hemoglobin 10.7, sodium 140, potassium 4.5, chloride 113, CO2 is 18, BUN 23, serum creatinine 1.2, and troponin less than 0.012. ASSESSMENT: 1. Acute kidney injury, mostly cardiorenal. Patient's ejection fraction was less than 20% on echocardiogram in December of 2018. Continue with diuretics at this time. Blood pressure is not significantly low. Repeat labs in a.m. and continue to avoid nephrotoxic agents. The patient did receive IV contrast for CTA. We will continue to monitor the renal function. Avoid nonsteroidal anti-inflammatory agents. 2. Cardiomyopathy, ejection fraction less than 20% with moderate deeply dilated left atrium and severe global hypokinesis off the left ventricle. 3. Sticky platelet syndrome. 4. Status post left BKA and right AKA. 5. Congestive heart failure, acute on top of chronic, mainly systolic. 6. Volume overload. 7. Metabolic acidosis, non-anion gap. 8. History of bilateral renal infarcts on a previous admission in December. Renal function is fairly well preserved. PLAN: Continue with the IV Lasix. Repeat labs in a.m. Avoid any other nephrotoxic agents. Add sodium bicarb if the metabolic acidosis is not improved by tomorrow. I would like to avoid the sodium load if her acidosis improves on her own. It is better as of yesterday with CO2 up from 15 to 18. Repeat labs in a.m. MMODL / IJN: [id number] /
[2019-04-10 16:11] VITALS: BMI 15.9
[2019-04-10] MEDS: LISINOPRIL 5 MG TAB PO SCH (17:06)
[2019-04-10] MEDS ORDERED: CALCIUM CARBONATE 500 MG CHEWABLE PO PRN (19:49)
[2019-04-10] MEDS: MIRTAZAPINE 15 MG TAB PO SCH (22:46)
[2019-04-11] MEDS: MORPHINE SULFATE 4 MG/ML SYRINGE IVP PRN ×6 (00:18→22:14)
[2019-04-11 07:03] LABS: Anisocytosis Slight; HCT 38.4 % (34.0-46.0); HGB 11.2 gm/dL (11.4-16.0); Hypochromasia Moderate; MCH 28.7 pg (25.0-35.0); MCHC 29.2 g/dL (31.0-37.0); MCV 98.2 fL (80.0-100.0); Macrocytosis Slight; Mean Platelet Volume 6.8; Platelet Count 343 k/uL (150-450); RBC 3.91 m/uL (3.80-5.40); RDW 16.7 % (11.5-15.5); WBC 6.3 k/uL (3.8-10.6)
[2019-04-11 07:12] LABS: Calcium 7.8 mg/dL (8.4-10.2); Magnesium 1.6 mg/dL (1.6-2.3)
[2019-04-11] MEDS: FUROSEMIDE 10 MG/ML 4 ML VIAL IV SCH ×2 (09:30→20:57)
[2019-04-11] MEDS: FAMOTIDINE 20 MG TAB PO SCH (09:31)
[2019-04-11] MEDS: ENOXAPARIN 40 MG/0.4 ML SYRINGE SQ SCH ×2 (09:31→20:57)
[2019-04-11] MEDS: LIDOCAINE 5% PATCH TOPICAL SCH (09:31)
[2019-04-11] MEDS: CLOPIDOGREL 75 MG TAB PO SCH (09:31)
[2019-04-11] MEDS: SODIUM BICARBONATE TAB 650 MG TAB PO SCH ×2 (09:31→20:57)
[2019-04-11] MEDS: CARVEDILOL 6.25 MG TAB PO SCH ×2 (09:31→18:22)
[2019-04-11] MEDS: LISINOPRIL 5 MG TAB PO SCH (09:32)
--- NOTE | 2019-04-11 09:34 | P.PN ---
Subjective Patient is seen in follow-up for acute kidney injury. Currently resting in bed. Complaining of edema. Oral intake is fair. No vomiting or diarrhea. Urine output is good. Renal function improving. Currently maintained on IV Lasix 40 mg twice daily. Vital signs are stable. General: The patient appeared well nourished and normally developed. HEENT: Head exam is unremarkable. Neck is without jugular venous distension. LUNGS: Lungs are clear to auscultation and percussion. Breath sounds decreased. HEART: Rate and Rhythm are regular. First and second heart sounds normal. No murmurs, rubs or gallops. ABDOMEN: Abdominal exam reveals normal bowel sounds. Non-tender and non- distended. No evidence of peritonitis. EXTREMITITES: Right AKA and left BKA noted. 1+ edema. Objective - Vital Signs Vital signs: Vital Signs Temp 97.9 F 04/11/19 04:00 Pulse 86 04/11/19 04:00 Resp 16 04/11/19 04:00 BP 129/102 04/11/19 04:00 Pulse Ox 97 04/11/19 04:00 Intake & Output 04/10/19 04/11/19 04/11/19 18:59 06:59 18:59 Intake Total 500 Output Total 900 1700 Balance -400 -1700 Weight 40.823 kg 41.776 kg Intake: Oral 500 Output: Urine 900 1700 Other: Voiding Method Incontinent Incontinent # Voids 1 - Labs CBC & Chem 7: 04/11/19 06:42 04/11/19 06:42 Labs: Abnormal Lab Results - Last 24 Hours (Table) 04/10/19 04/10/19 04/11/19 Range/Units 09:06 09:06 06:42 RBC 3.60 L (3.80-5.40) m/uL Hgb 10.7 L 11.2 L (11.4-16.0) gm/dL MCV 100.4 H (80.0-100.0) fL MCHC 29.5 L 29.2 L (31.0-37.0) g/dL RDW 17.8 H 16.7 H (11.5-15.5) % Chloride 113 H (98-107) mmol/L Carbon Dioxide 18 L (22-30) mmol/L BUN 23 H (7-17) mg/dL Creatinine 1.20 H (0.52-1.04) mg/dL Glucose 106 H (74-99) mg/dL Calcium 8.0 L (8.4-10.2) mg/dL 04/11/19 Range/Units 06:42 RBC (3.80-5.40) m/uL Hgb (11.4-16.0) gm/dL MCV (80.0-100.0) fL MCHC (31.0-37.0) g/dL RDW (11.5-15.5) % Chloride 110 H (98-107) mmol/L Carbon Dioxide 20 L (22-30) mmol/L BUN 25 H (7-17) mg/dL Creatinine 1.09 H (0.52-1.04) mg/dL Glucose (74-99) mg/dL Calcium 7.8 L (8.4-10.2) mg/dL Assessment and Plan Plan: Assessment: 1. Acute kidney injury mostly prerenal secondary to cardiorenal syndrome. Renal function improving. Creatinine 1.09 today. 2. Systolic CHF with ejection fraction of less than 20%. 3. Volume overload. 4. Metabolic acidosis secondary to acute kidney injury. 5. 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 6. Status post right AKA and left BKA. 7. Benign hypertension. 8. Hypomagnesemia secondary to diuresis. Plan: Maintain Lasix 40 mg IV twice daily. Maintain oral sodium bicarbonate. Replace magnesium. 2 g IV today. Continue to monitor renal function and urine output. Patient did undergo a CTA on April 10. Will continue to monitor for contrast- induced nephropathy.
[2019-04-11] MEDS: ALPRAZolam 0.5 MG TAB PO PRN ×2 (09:43→20:57)
[2019-04-11] MEDS: MAGNESIUM SULFATE-D5W PMX 1 GM in DEXTROSE/WATER 1 100ML.BAG IVPB SCH ×2 (12:32→14:27)
--- NOTE | 2019-04-11 13:23 | P.PN ---
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 Patient was recently at [facility] and diagnosed with a left lower extremity DVT and pulmonary embolism. She had been on Xarelto and was switched back to Lovenox. In the ER she underwent an extensive evaluation. Her vital signs within normal limits on arrival. Laboratory analysis showed hemoglobin 9.8, which is near her baseline. D-dimer was slightly elevated at 0.6. Lab work showed a hyperchloremic metabolic acidosis with a carbon dioxide of 15. She also had a slightly elevated creatinine at 1.19. Chest x-ray showed bilater al effusions with vascular congestion and lower extremity edema. She was started on Lasix. She is admitted for acute exacerbation of CHF. Patient seen and examined at bedside is awake and alert, reports that her breathing is much improved now off supplemental O2 room air and doing fine, . Patient currently on IV Lasix 40 mg twice a day, reporting lower extremity swelling worsen her left lower extremity versus the right. And that she has not been able to put on her prosthesis secondary to the edema Noted right AKA and left BKA Objective - Vital Signs Vital signs: Vital Signs Temp 98.2 F 04/11/19 12:00 Pulse 90 04/11/19 12:00 Resp 16 04/11/19 12:00 BP 110/78 04/11/19 12:00 Pulse Ox 98 04/11/19 12:00 Intake & Output 04/10/19 04/11/19 04/11/19 18:59 06:59 18:59 Intake Total 500 Output Total 900 1700 1150 Balance -400 -1700 -1150 Weight 40.823 kg 41.776 kg Intake: Oral 500 Output: Urine 900 1700 1150 Other: Voiding Method Incontinent Incontinent Bedpan Incontinent # Voids 1 1 - Exam Constitutional: No acute distress, conversant, pleasant Eyes: Anicteric sclerae, moist conjunctiva, no lid-lag, PERRLA ENMT: NC/AT,Oropharynx clear, no erythema, exudates Neck:Supple, FROM, no masses, or JVD, No carotid bruits; No thyromegaly Lungs: Clear to auscultation, Clear to percussion, Normal respiratory effort, no accessory muscle use Cardiovascular: Heart regular in rate and rhythm, No murmurs, gallops, or rubs no peripheral edema Abdominal: Soft Nontender, nom distended, no guarding, no rebound or rigidity, Normoactive bowel sounds No hepatomegaly, No splenomegaly, No palpable mass No abdominal wall hernia noted Skin: Normal temperature, tone, texture, turgor, No induration No subcutaneous nodules, No rash, lesions, No ulcers Extremities: Right BKA +1.5 pitting edema left AKA plus blood +1 pitting edema Psychiatric: Alert and oriented to person, place and time, Appropriate affect I ntact judgement Neuro: Muscles Strength 5/5 in all 4 extremities, Sensation to light touch gross ly present throughout, Cranial nerves II-XII grossly intact. No focal sensory deficits - Labs CBC & Chem 7: 04/11/19 06:42 04/11/19 06:42 Labs: Abnormal Lab Results - Last 24 Hours (Table) 04/11/19 04/11/19 Range/Units 06:42 06:42 Hgb 11.2 L (11.4-16.0) gm/dL MCHC 29.2 L (31.0-37.0) g/dL RDW 16.7 H (11.5-15.5) % Chloride 110 H (98-107) mmol/L Carbon Dioxide 20 L (22-30) mmol/L BUN 25 H (7-17) mg/dL Creatinine 1.09 H (0.52-1.04) mg/dL Calcium 7.8 L (8.4-10.2) mg/dL Assessment and Plan Plan: Acute exacerbation of systolic congestive heart failure with ejection fraction less than 20% -Continue 40 mg IV Lasix twice daily, reports edema is improving -Coag -Not chronically on NOLVIA inhibitor and we'll not start at this point in time secondary to elevated creatinine -Strict I's and O's, daily weights -Cardiology recommendations -Consider repeat echocardiogram to assess for improvement in ejection fraction Toxic metabolic encephalopathy -Likely secondary to polypharmacy -Decreased and next dose, continue with morphine for pain control -CT head negative, awake and alert on reassessment Hypoglycemia - This occurred after altered mentation -Encourage oral intake -Accu-Cheks every before meals, at bedtime, and 2 AM -There was concern for possible adrenal insufficiency in this patient in the past, but had been ruled out Possible acute kidney injury with non-anion gap metabolic acidosis * Creatinine improving from 1.2-1.09 today nephrology consulted secondary to likely cardiorenal etiology -Continue patient's sodium bicarb from home -Would avoid IV fluids at this point in time secondary to severe CHF -Follow renal function -Avoid additional nephrotoxic agents -May worsen from contrast exposure today 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 -Continue with Lovenox twice daily Severe protein calorie malnutrition with cachexia -Nepro supplements Anemia of chronic disease -Appears near baseline -Continue outpatient follow-up Hypomagnesemia * Mag 1.6 today we'll replace and recheck Disposition * Patient is stable for transfer to the medical floor DVT prophylaxis: Full dose lovenox Discussed with: Patient, multiple, responded to A team Anticipated discharge: 3-[address]: home with home health A total of 45 minutes was spent on the care of this complex patient more than 50% of the time was spent in counseling and care coordination.
--- NOTE | 2019-04-11 19:46 | PN ---
PROGRESS NOTE This patient is admitted with bilateral swelling in the legs. Patient has a cardiomyopathy with severely impaired left ventricular systolic function. She is comfortable. She denies any orthopnea or PND. Her blood pressure is 110/78 mmHg. First and second heart sounds are normal. Lungs are clinically clear to auscultation and percussion. Patient has been diuresing well. We will continue the patient on IV Lasix. She is tolerating Zestril well. MMODL / IJN: [id number] /
[2019-04-11] MEDS: MIRTAZAPINE 15 MG TAB PO SCH (20:57)
[2019-04-12] MEDS: MORPHINE SULFATE 4 MG/ML SYRINGE IVP PRN ×4 (02:37→16:13)
[2019-04-12 06:16] LABS: Albumin 2.6 g/dL (3.5-5.0); Potassium 3.9 mmol/L (3.5-5.1); Total Bilirubin 0.5 mg/dL (0.2-1.3); Total Protein 6.1 g/dL (6.3-8.2)
[2019-04-12 06:34] LABS: Anisocytosis Slight; HCT 39.3 % (34.0-46.0); HGB 11.8 gm/dL (11.4-16.0); Hypochromasia Moderate; MCH 29.5 pg (25.0-35.0); MCV 98.4 fL (80.0-100.0); Macrocytosis Slight; Mean Platelet Volume 7.6; Platelet Count 320 k/uL (150-450); RBC 3.99 m/uL (3.80-5.40); RDW 18.3 % (11.5-15.5); WBC 6.3 k/uL (3.8-10.6)
[2019-04-12] MEDS: FAMOTIDINE 20 MG TAB PO SCH (08:10)
[2019-04-12] MEDS: CLOPIDOGREL 75 MG TAB PO SCH (08:10)
[2019-04-12] MEDS: CARVEDILOL 6.25 MG TAB PO SCH ×2 (08:10→17:19)
[2019-04-12] MEDS: LISINOPRIL 5 MG TAB PO SCH (08:10)
[2019-04-12] MEDS: SODIUM BICARBONATE TAB 650 MG TAB PO SCH (08:10)
[2019-04-12] MEDS: FUROSEMIDE 10 MG/ML 4 ML VIAL IV SCH (08:10)
[2019-04-12] MEDS: ENOXAPARIN 40 MG/0.4 ML SYRINGE SQ SCH (08:11)
[2019-04-12] MEDS: LIDOCAINE 5% PATCH TOPICAL SCH (08:11)
[2019-04-12 08:27] VITALS: TEMP 98.5
--- NOTE | 2019-04-12 09:58 | P.PN ---
Subjective Patient is seen in follow-up for acute kidney injury. Currently resting in bed. Feels better today. Edema improving. Oral intake is fair. No vomiting or diarrhea. Urine output is good. Renal function improving. Currently maintained on IV Lasix 40 mg twice daily. Vital signs are stable. General: The patient appeared well nourished and normally developed. HEENT: Head exam is unremarkable. Neck is without jugular venous distension. LUNGS: Lungs are clear to auscultation and percussion. Breath sounds decreased. HEART: Rate and Rhythm are regular. First and second heart sounds normal. No murmurs, rubs or gallops. ABDOMEN: Abdominal exam reveals normal bowel sounds. Non-tender and non- distended. No evidence of peritonitis. EXTREMITITES: Right AKA and left BKA noted. 1+ edema. Objective - Vital Signs Vital signs: Vital Signs Temp 98.5 F 04/12/19 08:00 Pulse 100 04/12/19 08:00 Resp 15 04/12/19 08:00 BP 104/72 04/12/19 08:00 Pulse Ox 100 04/12/19 08:00 Intake & Output 04/11/19 04/12/19 04/12/19 18:59 06:59 18:59 Intake Total 200 Output Total [id number] Balance -265 -2049 Weight 36.2 kg Intake: IV 200 Magnesium Sulfate-D5w Pmx 200 1 gm In Dextrose/Water 1 100ml.bag @ 100 mls/hr IVPB Q1H [facility] Rx#: [id number] Output: Urine 2850 2049 Other: Voiding Method Bedpan Bedpan Bedpan Incontinent # Voids 6 - Labs CBC & Chem 7: 04/12/19 05:40 04/12/19 05:40 Labs: Abnormal Lab Results - Last 24 Hours (Table) 04/12/19 04/12/19 Range/Units 05:40 05:40 MCHC 30.0 L (31.0-37.0) g/dL RDW 18.3 H (11.5-15.5) % BUN 29 H (7-17) mg/dL Creatinine 1.05 H (0.52-1.04) mg/dL Calcium 8.0 L (8.4-10.2) mg/dL Alkaline Phosphatase 133 H (38-126) U/L Total Protein 6.1 L (6.3-8.2) g/dL Albumin 2.6 L (3.5-5.0) g/dL Assessment and Plan Plan: Assessment: 1. Acute kidney injury mostly prerenal secondary to cardiorenal syndrome. Renal function improving. Creatinine 1.05 today. 2. Systolic CHF with ejection fraction of less than 20%. 3. Volume overload. Improving with diuresis. 4. Metabolic acidosis secondary to acute kidney injury. Better. 5. 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 6. Status post right AKA and left BKA. 7. Benign hypertension. Controlled. 8. Hypomagnesemia secondary to diuresis. Plan: Maintain Lasix 40 mg IV twice daily - can transition to oral diuretics in the next 24-48 hours. Discontinue sodium bicarbonate. Continue to monitor renal function and urine output. Patient did undergo a CTA on April 10. Will continue to monitor for contrast- induced nephropathy. Repeat electrolytes in the morning. Can continue lisinopril but hold for systolic blood pressure less than 110.
--- NOTE | 2019-04-12 10:29 | PN ---
PROGRESS NOTE Mrs. Linares is a bilateral lower extremity amputee one above knee and one below knee. She has a dilated cardiomyopathy with ejection fraction that is severely impaired with a global decrease in contractility. She came in with heart failure yesterday, initiated on IV diuretics. This morning she feels better. Her breathing is easier. Weight has come down substantially. She is on Lovenox 40 mg subcu q.12 hours. She is resting comfortably. At the time of my evaluation, her breathing is easier. About 3 weeks ago she had a pulmonary embolism. Vital signs are stable. Blood pressure is 110, heart rate is about 80 per minute. S1, S2 heard normally. Short systolic murmur is audible. Lungs reveal diminished air entry bilateral lung duncan. Abdomen is soft. Lower extremity edema has improved over the amputated stumps. Plan is to continue IV diuretics for 1 more day. Check a CBC, BMP tomorrow and switch her to oral Lasix in the morning. Discussed my thoughts in detail with the patient. MMODL / IJN: [id number] /
[2019-04-12 12:52] VITALS: BP 122/91; PULSE 98; RESP 18
--- NOTE | 2019-04-12 13:11 | P.DS ---
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 Patient was recently at [facility] and diagnosed with a left lower extremity DVT and pulmonary embolism. She had been on Xarelto and was switched back to Lovenox. In the ER she underwent an extensive evaluation. Her vital signs within normal limits on arrival. Laboratory analysis showed hemoglobin 9.8, which is near her baseline. D-dimer was slightly elevated at 0.6. Lab work showed a hyperchloremic metabolic acidosis with a carbon dioxide of 15. She also had a slightly elevated creatinine at 1.19. Chest x-ray showed bilateral effusions with vascular congestion and lower extremity edema. She is admitted for acute exacerbation of CHF and She was started on Lasix 40 mg IV twice a day. Cardiology was consulted to see the patient as she was noted to have a dilated cardiomyopathy with severely decreased ejection fraction with a global decrease in contractility. Patient was thought to have toxic metabolic encephalopathy secondary to polypharmacy after it was noted she was extremely lethargic after receiving Remeron Xanax and morphine a few hours apart. Nephrology was consulted to see the patient secondary to prerenal acute kidney injury with that was thought to be secondary to cardiorenal etiology. Workup with CT of the head was negative for any acute intracranial abnormality with evidence of old bilateral consults indicative of encephalomalacia. The patient diuresed well throughout hospitalization with good urine output and having a clear chest exam with only trace edema on day of discharge, she was transitioned to oral Lasix along with potassium supplementation with plans to recheck her BMP in 3 days to screen for possible DONNA after having a CTA chest 04/10. She was subsequently discharged home in stable condition. This discharge process took approximately 35 minutes Focused exam Cardiovascular: Regular rate and rhythm no murmurs or gallops, no JVD, trace pe ripheral edema Respiratory: Clear to auscultation bilaterally no wheezes or rhonchi Patient Condition at Discharge: Fair Plan - Discharge Summary Discharge Rx Participant: Yes New Discharge Prescriptions: New Carvedilol [Coreg] 6.25 mg PO BID-W/MEALS #60 tab Potassium Chloride ER [K-Dur 20] 20 meq PO DAILY #30 tab.er.prt Furosemide [Lasix] 40 mg PO BID@0900,1600 #60 tab Lisinopril [Zestril] 5 mg PO DAILY #30 tab Continue Clopidogrel Bisulfate [Plavix] 75 mg PO DAILY Cyclobenzaprine [Flexeril] 10 mg PO TID PRN PRN Reason: Muscle Spasm Nitroglycerin Sl Tabs [Nitrostat] 0.4 mg SUBLINGUAL Q5M PRN tab PRN Reason: Chest Pain Lidocaine 5% Patch [Lidoderm 5% Patch] 1 patch TOPICAL DAILY #30 patch Famotidine [Pepcid] 20 mg PO DAILY #20 tab Enoxaparin [Lovenox] 40 mg SQ DAILY Albuterol Sulfate [Proair Hfa] 1 puff INHALATION RT-Q6H PRN PRN Reason: Shortness Of Breath Discharge Medication List Clopidogrel Bisulfate [Plavix] 75 mg PO DAILY 12/06/18 [History] Cyclobenzaprine [Flexeril] 10 mg PO TID PRN 12/27/18 [History] Nitroglycerin Sl Tabs [Nitrostat] 0.4 mg SUBLINGUAL Q5M PRN tab 12/28/18 [Rx] Famotidine [Pepcid] 20 mg PO DAILY #20 tab 03/11/19 [Rx] Lidocaine 5% Patch [Lidoderm 5% Patch] 1 patch TOPICAL DAILY #30 patch 03/11/19 [Rx] Albuterol Sulfate [Proair Hfa] 1 puff INHALATION RT-Q6H PRN 04/09/19 [History] Enoxaparin [Lovenox] 40 mg SQ DAILY 04/09/19 [History] Carvedilol [Coreg] 6.25 mg PO BID-W/MEALS #60 tab 04/12/19 [Rx] Furosemide [Lasix] 40 mg PO BID@0900,1600 #60 tab 04/12/19 [Rx] Lisinopril [Zestril] 5 mg PO DAILY #30 tab 04/12/19 [Rx] Potassium Chloride ER [K-Dur 20] 20 meq PO DAILY #30 tab.er.prt 04/12/19 [Rx] Follow up Appointment(s)/Referral(s): None,Stated [Primary Care Provider] - 1-2 days Christopher Handley DO [STAFF PHYSICIAN] - 1 Week Ambulatory/Diagnostic Orders: Basic Metabolic Panel [LAB.AMB] Time Frame: 3 Days, Facility: [facility], Location: Laboratory Department Patient Instructions/Handouts: Heart Failure (DC), Acute Kidney Injury (DC) Discharge Disposition: HOME SELF-CARE
[2019-04-12] MEDS: ALPRAZolam 0.5 MG TAB PO PRN (14:08)
[2019-04-12] MEDS ORDERED: FUROSEMIDE 40 MG TAB PO SCH (16:00)
[2019-04-12] MEDS ORDERED: POTASSIUM CHLORIDE ER 20 MEQ TAB.ER PO SCH (21:00)
[2019-04-13] MEDS ORDERED: FUROSEMIDE 40 MG TAB PO SCH (09:00)
== END 2019-04-12 17:21 | disposition home or self-care (01) | DRG 291 ==
LOC: EC 15:17 → 4SSUR 19:05 → 2SICU 04-10 07:29 → OBSVTOIN 04-10 12:21
PROVIDERS: ADMIT Internal Medicine; ATTEND Internal Medicine
DX: I13.0 Hypertensive heart and chronic kidney disease with heart failure and stage 1 through stage 4 chronic kidney disease, or unspecified chronic kidney disease (principal); G92 Toxic encephalopathy; I50.23 Acute on chronic systolic (congestive) heart failure; E43 Unspecified severe protein-calorie malnutrition; I26.99 Other pulmonary embolism without acute cor pulmonale; E27.40 Unspecified adrenocortical insufficiency; E87.2 Acidosis; N17.9 Acute kidney failure, unspecified; I82.402 Acute embolism and thrombosis of unspecified deep veins of left lower extremity; R64 Cachexia; Z68.1 Body mass index [BMI] 19.9 or less, adult; D63.8 Anemia in other chronic diseases classified elsewhere; E83.42 Hypomagnesemia; F32.9 Major depressive disorder, single episode, unspecified; F41.9 Anxiety disorder, unspecified; D69.1 Qualitative platelet defects; N18.9 Chronic kidney disease, unspecified; T50.2X5A Adverse effect of carbonic-anhydrase inhibitors, benzothiadiazides and other diuretics, initial encounter; T50.905A Adverse effect of unspecified drugs, medicaments and biological substances, initial encounter; I42.0 Dilated cardiomyopathy; E16.2 Hypoglycemia, unspecified; Z79.01 Long term (current) use of anticoagulants; Z88.6 Allergy status to analgesic agent; Z88.8 Allergy status to other drugs, medicaments and biological substances; Z79.02 Long term (current) use of antithrombotics/antiplatelets; Z79.899 Other long term (current) drug therapy; Z82.1 Family history of blindness and visual loss; Z86.19 Personal history of other infectious and parasitic diseases; Z86.73 Personal history of transient ischemic attack (TIA), and cerebral infarction without residual deficits; Z87.891 Personal history of nicotine dependence; Z89.512 Acquired absence of left leg below knee; Z89.611 Acquired absence of right leg above knee; Z90.49 Acquired absence of other specified parts of digestive tract
CPT/HCPCS: 36415; 36600; 70450; 71046; 71275; 80048; 80053; 81001; 82805; 83735; 83880; 84100; 84484; 85025; 85027; 85379; 85610; 85730; 93005; 96361; 96374; 99285

== ENCOUNTER 2019-05-01 23:14 | Observation (INO) | payer MEDICARE, OTHER ==
[2019-05-01] MEDS ORDERED: MORPHINE SULFATE 4 MG/ML SYRINGE IVP STA (23:50)
[2019-05-02] MEDS ORDERED: HEPARIN SODIUM,PORCINE 10,000 UNIT/ML 1 ML VIAL IV ONE (00:23)
[2019-05-02] MEDS ORDERED: HEPARIN SODIUM,PORCINE 5,000 UNIT/ML 1 ML VIAL IV PRN (00:23)
[2019-05-02 00:27] LABS: Basophils % (A) 1 %; Eosinophils # (A) 0.1 k/uL (0-0.7); Eosinophils % (A) 3 %; HCT 31.7 % (34.0-46.0); HGB 10.1 gm/dL (11.4-16.0); Hypochromasia Moderate; Lymphocytes # (A) 1.2 k/uL (1.0-4.8); Lymphocytes % (A) 25 %; MCH 30.8 pg (25.0-35.0); MCHC 31.7 g/dL (31.0-37.0); MCV 97.1 fL (80.0-100.0); Mean Platelet Volume 7.6; Monocytes # (A) 0.2 k/uL (0-1.0); Monocytes % (A) 5 %; Neutrophils # (A) 3.1 k/uL (1.3-7.7); Neutrophils % (A) 66 %; Platelet Count 300 k/uL (150-450); RBC 3.27 m/uL (3.80-5.40); RDW 15.9 % (11.5-15.5); WBC 4.8 k/uL (3.8-10.6)
[2019-05-02] MEDS ORDERED: HEPARIN SOD,PORK IN 0.45% NACL 25,000 UNIT in 0.45% NACL 1 250ML.BAG IV SCH (00:30)
[2019-05-02 00:36] LABS: Calcium 8.7 mg/dL (8.4-10.2); Potassium 5.2 mmol/L (3.5-5.1)
--- NOTE | 2019-05-02 00:51 | XR ---
EXAM: XR Chest, 2 Views CLINICAL HISTORY: ITS.REASON XR Reason: Pain TECHNIQUE: Frontal and lateral views of the chest. COMPARISON: 04/09/19 IMPRESSION: Cardiomegaly. No consolidation or pleural effusion.
[2019-05-02 01:01] LABS: Partial Thromboplastin Time 26.2 sec (22.0-30.0); Prothrombin Time 10.8 sec (9.0-12.0)
--- NOTE | 2019-05-02 01:43 | ED ---
General Adult HPI - General Source: patient, family Mode of arrival: ambulatory Limitations: no limitations <Anisha Martinez - Last Filed: 05/02/19 01:43> <Hannah Villalba - Last Filed: 05/02/19 03:58> - General Chief complaint: Extremity Problem,Nontraumatic Stated complaint: Tariq Lower Limb Pain Time Seen by Provider: 05/01/19 23:30 - History of Present Illness Initial comments: 48-year-old female with past medical history of sticky platelet syndrome, DVT/PE, failed anticoagulation therapy, and systolic heart failure presenting with worsening bilateral lower extremity pain shortness of breath. Patient sta zeus she is concerned that she has DVTs because her pain is similar to her legs to when she was diagnosed with them. 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 Patient was recently admitted for CHF exacerbation and states she's been compliant with her Lasix therapy. She denies any chest pain but admits to a pressure that makes it feel she is short of breath. She denies any fevers or chills, abdominal pain, dysuria, change in her bowel habits. Patient denies any history of DE or cardiac stent placement. (Anisha Martinez) - Related Data Home Medications Medication Instructions Recorded Confirmed Clopidogrel Bisulfate [Plavix] 75 mg PO DAILY 12/06/18 05/01/19 Cyclobenzaprine [Flexeril] 10 mg PO TID PRN 12/27/18 05/01/19 Albuterol Sulfate [Proair Hfa] 1 puff INHALATION RT-Q6H PRN 04/09/19 05/01/19 ALPRAZolam [Xanax] 2 mg PO DAILY PRN 05/01/19 05/01/19 Enoxaparin [Lovenox] 40 mg SQ BID 05/01/19 05/01/19 HYDROmorphone HCL [Dilaudid] 8 mg PO TID 05/01/19 05/01/19 Sucralfate [Carafate] 1 gram PO DAILY 05/01/19 05/01/19 Previous Rx's Medication Instructions Recorded Nitroglycerin Sl Tabs [Nitrostat] 0.4 mg SUBLINGUAL Q5M PRN tab 12/28/18 Famotidine [Pepcid] 20 mg PO DAILY #20 tab 03/11/19 Lidocaine 5% Patch [Lidoderm 5% 1 patch TOPICAL DAILY #30 patch 03/11/19 Patch] Carvedilol [Coreg] 6.25 mg PO BID-W/MEALS #60 tab 04/12/19 Furosemide [Lasix] 40 mg PO BID@0900,1600 #60 tab 04/12/19 Lisinopril [Zestril] 5 mg PO DAILY #30 tab 04/12/19 Potassium Chloride ER [K-Dur 20] 20 meq PO DAILY #30 tab.er.prt 04/12/19 Allergies Allergy/AdvReac Type Severity Reaction Status Date / Time ibuprofen Allergy Unknown Verified 05/01/19 23:24 trazodone Allergy Chest Pain Verified 05/01/19 23:24 Review of Systems ROS Other: All systems not noted in ROS Statement are negative. <Anisha Martinez - Last Filed: 05/02/19 01:43> ROS Other: All systems not noted in ROS Statement are negative. <Hannah Villalba - Last Filed: 05/02/19 03:58> ROS Statement: Those systems with pertinent positive or pertinent negative responses have been documented in the HPI. Review of Systems Constitutional: Denies fever, chills Eyes: Denies change in vision, Denies pain Ears, nose, mouth, throat: Denies headaches, Denies sore throat Cardiovascular: Denies chest pain. Denies palpitations Respiratory: Positive shortness of breath, Denies cough Gastrointestinal: Denies abdominal pain. Denies nausea, vomiting, diarrhea. Genitourinary: Denies hematuria, Denies infections Musculoskeletal: Positive pain, Positive swelling Integumentary: Denies rash Neurological: Denies headache, focal weakness, focal numbness Psychiatric: Denies anxiety, Denies depression Hematologic/Lymphatic: Denies easy bleeding or bruising (Anisha Martinez) Past Medical History Past Medical History: Asthma, Heart Failure, CVA/TIA, Deep Vein Thrombosis (DVT), Osteoarthritis (OA), Pulmonary Embolus (PE), Renal Disease Additional Past Medical History / Comment(s): sticky platelet syndrome, bronchitis, anx/depression, falls renal failure History of Any Multi-Drug Resistant Organisms: ESBL Date of last positivie culture/infection: 10/15/18 ESBL MDRO Source:: Urine Past Surgical History: Cholecystectomy Additional Past Surgical History / Comment(s): ltBKA, left lower leg, aortic bypass right leg, right leg fasciotomy.pt stated had another vascular sx after the fasciotomy at [facility] unclear as to exactly what was done Rt BKA Past Anesthesia/Blood Transfusion Reactions: No Reported Reaction Additional Past Anesthesia/Blood Transfusion Reaction / Comment(s): pt stated has had a blood transfusion in past-no reaction. Past Psychological History: Anxiety, Depression Smoking Status: Former smoker Past Alcohol Use History: None Reported Past Drug Use History: None Reported - Past Family History Mother History Unknown: Yes Additional Family Medical History / Comment(s): MS, legally blind, cataracts Father Family Medical History: No Reported History Additional Family Medical History / Comment(s): Was younger when he , car accident <Anisha Martinez - Last Filed: 05/02/19 01:43> General Exam Limitations: no limitations <Anisha Martinez - Last Filed: 05/02/19 01:43> - General Exam Comments Initial Comments: General: Awake, alert, No acute Distress HENT: Normocephalic. Atraumatic Eyes: PERRL. EOMI. No scleral icterus. No injected conjunctiva Neck: Full ROM Chest/Lungs: Clear to auscultation bilaterally. No wheezing, rhonchi, or rales Cardiac: Sinus tachycardia. Regular rhythm No murmurs or rubs Abdomen/GI: Soft, nontender, nondistended. No rebound, guarding, or rigidity. Musculoskeletal: . No obvious swelling to BLE. AKA of RLE and BKA or LLE Skin: LLE cool to touch. RLE warm and well perfused. Neurologic: A/Ox3, no weakness, no sensory deficit, no abnormal gait, no coordination deficit (Anisha Martinez) Course Vital Signs 05/01/19 05/02/19 05/02/19 23:18 00:09 01:19 Temperature 98.6 F Pulse Rate 110 H 105 H Respiratory 20 20 20 Rate Blood Pressure 138/92 132/96 O2 Sat by Pulse 98 98 Oximetry 05/02/19 03:12 Temperature Pulse Rate Respiratory 16 Rate Blood Pressure 132/96 O2 Sat by Pulse Oximetry EKG Findings - EKG Comments: EKG Findings:: Shows sinus tachycardia at a rate of 111 bpm. DE interval 142 ms, QRS duration 60 ms, QT/QTC 352/478. <Anisha Mratinez - Last Filed: 05/02/19 01:43> Medical Decision Making - Lab Data Result diagrams: 05/02/19 00:05 05/02/19 00:05 <Anisha Martinez - Last Filed: 05/02/19 01:43> - Lab Data Result diagrams: 05/02/19 00:05 05/02/19 00:05 <Hannah Villalba - Last Filed: 05/02/19 03:58> - Medical Decision Making 48-year-old female presenting with bilateral lower extremity pain and swelling. Initial exam the patient is awake, alert, no acute distress. VSS. EKG shows sinus tachycardia.No ST segment elevation, depression. No prolonged QT/QTc or DE interval. No dysrythmia noted. Patient has a history of failed anticoagulation therapy. She was started on heparin for presumed failure. Her laboratory workup revealed a hyperkalemia, however no peak T waves were seen on her EKG. Her lactic acid was 1.4. Patient's chest x-ray was negative for process. Patient will be signed out to the overnight physician while awaiting her CTA admission. (Anisha Martinez) She care was signed out to me by Dr. Martinez. Patient is a 54-year-old female with extensive past medical history most significant for stick antiplatelet syndrome resulting in multiple these chronic occlusions. Patient presenting with worsening bilateral lower extremity pain, swelling, tenderness as well as shortness of breath. Labs were obtained CBC and CMP were unremarkable. The time of sign out the patient's computed tomography scan troponin and SELF RISING FLOUR MIXER levels were pending. Troponin was not elevated, BNP is significantly elevated and computed tomography scan concerning for excessive fluid in the tissue concerning for CHF exacerbation. At this time I do feel the patient will be admitted to the hospital for CHF exacerbation. This plan was discussed with the patient reports she is having worsening pain after laying flat on the CT table. Dilaudid was ordered for pain management. Patient care was discussed with admitting physician Dr. Landeros who accepts the patient. (Hannah Villalba) - Lab Data Lab Results 05/02/19 05/02/19 05/02/19 Range/Units 00:05 00:05 00:05 WBC 4.8 (3.8-10.6) k/uL RBC 3.27 L (3.80-5.40) m/uL Hgb 10.1 L (11.4-16.0) gm/dL Hct 31.7 L (34.0-46.0) % MCV 97.1 (80.0-100.0) fL MCH 30.8 (25.0-35.0) pg MCHC 31.7 (31.0-37.0) g/dL RDW 15.9 H (11.5-15.5) % Plt Count 300 (150-450) k/uL Neutrophils % 66 % Lymphocytes % 25 % Monocytes % 5 % Eosinophils % 3 % Basophils % 1 % Neutrophils # 3.1 (1.3-7.7) k/uL Lymphocytes # 1.2 (1.0-4.8) k/uL Monocytes # 0.2 (0-1.0) k/uL Eosinophils # 0.1 (0-0.7) k/uL Basophils # 0.0 (0-0.2) k/uL Hypochromasia Moderate PT (9.0-12.0) sec INR (<1.2) APTT (22.0-30.0) sec Sodium 136 L (137-145) mmol/L Potassium 5.2 H (3.5-5.1) mmol/L Chloride 108 H (98-107) mmol/L Carbon Dioxide 20 L (22-30) mmol/L Anion Gap 8 mmol/L BUN 22 H (7-17) mg/dL Creatinine 1.02 (0.52-1.04) mg/dL Est GFR (CKD-EPI)AfAm 75 (>60 ml/min/1.73 sqM) Est GFR (CKD-EPI)NonAf 65 (>60 ml/min/1.73 sqM) Glucose 76 (74-99) mg/dL Plasma Lactic Acid Faisal (0.7-2.0) mmol/L Calcium 8.7 (8.4-10.2) mg/dL Troponin I (0.000-0.034) ng/mL NT-Pro-B Natriuret Pep 41324 pg/mL 05/02/19 05/02/19 05/02/19 Range/Units 00:05 00:05 00:05 WBC (3.8-10.6) k/uL RBC (3.80-5.40) m/uL Hgb (11.4-16.0) gm/dL Hct (34.0-46.0) % MCV (80.0-100.0) fL MCH (25.0-35.0) pg MCHC (31.0-37.0) g/dL RDW (11.5-15.5) % Plt Count (150-450) k/uL Neutrophils % % Lymphocytes % % Monocytes % % Eosinophils % % Basophils % % Neutrophils # (1.3-7.7) k/uL Lymphocytes # (1.0-4.8) k/uL Monocytes # (0-1.0) k/uL Eosinophils # (0-0.7) k/uL Basophils # (0-0.2) k/uL Hypochromasia PT 10.8 (9.0-12.0) sec INR 1.0 (<1.2) APTT 26.2 (22.0-30.0) sec Sodium (137-145) mmol/L Potassium (3.5-5.1) mmol/L Chloride (98-107) mmol/L Carbon Dioxide (22-30) mmol/L Anion Gap mmol/L BUN (7-17) mg/dL Creatinine (0.52-1.04) mg/dL Est GFR (CKD-EPI)AfAm (>60 ml/min/1.73 sqM) Est GFR (CKD-EPI)NonAf (>60 ml/min/1.73 sqM) Glucose (74-99) mg/dL Plasma Lactic Acid Faisal 1.4 (0.7-2.0) mmol/L Calcium (8.4-10.2) mg/dL Troponin I 0.020 (0.000-0.034) ng/mL NT-Pro-B Natriuret Pep pg/mL Disposition <Anisha Martinez E - Last Filed: 05/02/19 01:43> <Hannah Villalba - Last Filed: 05/02/19 03:58> Clinical Impression: Elevated brain natriuretic peptide (BNP) level, CHF exacerbation Disposition: ADMITTED IP TO THIS HOSP Referrals: None,Stated [Primary Care Provider] - 1-2 days
[2019-05-02] MEDS ORDERED: HYDROmorphone 1 MG/ML 1 ML SYRINGE IVP STA (02:26)
--- NOTE | 2019-05-02 02:36 | CT ---
EXAM: CT Chest, abdomen and pelvis, right lower extremity, and left lower extremity Without And With Intravenous Contrast CLINICAL HISTORY: ITS.REASON CT Reason: Pain TECHNIQUE: Axial computed tomography images of the chest without and with intravenous contrast. CTDI is 12 mGy and DLP is 1338 mGy-cm. This CT exam was performed using one or more of the following dose reduction techniques: automated exposure control, adjustment of the mA and/or kV according to patient size, and/or use of iterative reconstruction technique. COMPARISON: No relevant prior studies available. FINDINGS: Chest: Lungs: No mass. Left lower lobe subsegmental atelectasis. Pleural space: Trace left pleural effusion. Heart: Normal heart size without pericardial effusion. Bones/joints: No acute fracture. Soft tissues: Diffuse soft tissue stranding. Vasculature: Dilated pulmonary artery to 3.4 cm. No pulmonary embolism. No thoracic aortic aneurysm. Lymph nodes: No enlarged lymph nodes. Abdomen and pelvis: Lower lungs: No acute findings. Liver: Unremarkable. Gallbladder: Removed. Spleen, pancreas, and adrenal glands: No acute findings. Kidneys: No hydronephrosis or obstructive nephrolithiasis. Bowel: No bowel obstruction. No appendicitis. Bladder: Unremarkable. Pelvic organs: Unremarkable. Aorta: Occluded from the level of the kidneys. No flow to the iliac arteries bilaterally. Major mesenteric vessels are patent. Femoral to femoral artery stent graft is seen. Bones: No acute fracture. Mild ascites. Diffuse soft tissue stranding. Right lower extremity: Bones: Amputated at the distal femur. Soft tissues: Diffuse soft tissue stranding, possibly from increase fluid status. Vessels: Scattered collateral vessels are seen. Major arteries do not appear to be patent. Left lower extremity: Bones: Left femoral hardware is intact. No acute fracture. Amputated below the knee. Soft tissues: Diffuse soft tissue stranding likely related to increased volume status. Vessels: Scattered collateral vessels are seen. Major arteries do not appear to be patent. IMPRESSION: 1. Left lower lobe subsegmental atelectasis. Trace left pleural effusion. 2. Abdomen and pelvis: Occluded aorta and iliac arteries is also level the kidneys. Major mesenteric arteries are patent. Mild ascites. 3. Bilateral extremities: Scattered collateral vessels. Major vessels appear to be occluded/nonopacified. Diffuse soft tissue stranding likely representing increased volume status.
[2019-05-02] MEDS ORDERED: FUROSEMIDE 10 MG/ML 4 ML VIAL IV STA (03:40)
[2019-05-02] MEDS: FUROSEMIDE 10 MG/ML 4 ML VIAL IV SCH ×3 (04:45→18:00)
[2019-05-02] MEDS ORDERED: ALPRAZolam 0.5 MG TAB PO STA (05:57)
[2019-05-02] MEDS: CARVEDILOL 6.25 MG TAB PO SCH ×2 (06:37→16:45)
--- NOTE | 2019-05-02 06:51 | P.HPIM ---
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 She was recently diagnosed with a recurrent lower extremity DVT and PE around less than a month ago and she was switched from Xarelto to Lovenox . She's been compliant with her medications she reports that she is going to heart failure classes and she's been compliant with her diuretics. She cannot weigh herself at home and she cannot comment if her weight has increased. But she has noticed some labored breathing she was worried that her symptoms might get worse and decided to come to the hospital Otherwise she denies any chest pain fevers chills or coughing denies any abdominal pain nausea or vomiting in the ED she was found to have elevated proBNP rest of the labs were around her baseline, slightly elevated potassium, computed tomography scan suggested evidence of increase fluids and volume overload in her lower extremities Review of Systems Pertinent positives as noted in HPI. All other systems were reviewed and are negative Past Medical History Past Medical History: Asthma, Heart Failure, CVA/TIA, Deep Vein Thrombosis (DVT), Osteoarthritis (OA), Pulmonary Embolus (PE), Renal Disease Additional Past Medical History / Comment(s): sticky platelet syndrome, bronchitis, anx/depression, falls renal failure History of Any Multi-Drug Resistant Organisms: ESBL Date of last positivie culture/infection: 10/15/18 ESBL MDRO Source:: Urine Past Surgical History: Cholecystectomy Additional Past Surgical History / Comment(s): ltBKA, left lower leg, aortic bypass right leg, right leg fasciotomy.pt stated had another vascular sx after the fasciotomy at [facility] unclear as to exactly what was done Rt AKA Past Anesthesia/Blood Transfusion Reactions: No Reported Reaction Additional Past Anesthesia/Blood Transfusion Reaction / Comment(s): pt stated has had a blood transfusion in past-no reaction. Past Psychological History: Anxiety, Depression Additional Psychological History / Comment(s): Is cared for by her mother in her own private residence, denies depression at this time. That a current tobacco smoker. No animal exposures Smoking Status: Former smoker Past Alcohol Use History: None Reported Additional Past Alcohol Use History / Comment(s): started smoking at age 22; quit 2018 was smoking 1/2ppd. Past Drug Use History: None Reported - Past Family History Mother History Unknown: Yes Additional Family Medical History / Comment(s): MS, legally blind, cataracts Father Family Medical History: No Reported History Additional Family Medical History / Comment(s): Was younger when he , car accident Medications and Allergies Home Medications Medication Instructions Recorded Confirmed Type Clopidogrel Bisulfate [Plavix] 75 mg PO DAILY 12/06/18 05/01/19 History Cyclobenzaprine [Flexeril] 10 mg PO TID PRN 12/27/18 05/01/19 History Nitroglycerin Sl Tabs [Nitrostat] 0.4 mg SUBLINGUAL Q5M PRN tab 12/28/18 05/01/19 Rx Famotidine [Pepcid] 20 mg PO DAILY #20 tab 03/11/19 05/01/19 Rx Lidocaine 5% Patch [Lidoderm 5% 1 patch TOPICAL DAILY #30 patch 03/11/19 05/01/19 Rx Patch] Albuterol Sulfate [Proair Hfa] 1 puff INHALATION RT-Q6H PRN 04/09/19 05/01/19 History Carvedilol [Coreg] 6.25 mg PO BID-W/MEALS #60 tab 04/12/19 05/01/19 Rx Furosemide [Lasix] 40 mg PO BID@0900,1600 #60 tab 04/12/19 05/01/19 Rx Lisinopril [Zestril] 5 mg PO DAILY #30 tab 04/12/19 05/01/19 Rx Potassium Chloride ER [K-Dur 20] 20 meq PO DAILY #30 tab.er.prt 04/12/19 05/01/19 Rx ALPRAZolam [Xanax] 2 mg PO DAILY PRN 05/01/19 05/01/19 History Enoxaparin [Lovenox] 40 mg SQ BID 05/01/19 05/01/19 History HYDROmorphone HCL [Dilaudid] 8 mg PO TID 05/01/19 05/01/19 History Sucralfate [Carafate] 1 gram PO DAILY 05/01/19 05/01/19 History Allergies Allergy/AdvReac Type Severity Reaction Status Date / Time ibuprofen Allergy Unknown Verified 05/01/19 23:24 trazodone Allergy Chest Pain Verified 05/01/19 23:24 Physical Exam Vitals: Vital Signs Temp Pulse Pulse Resp BP BP Pulse Ox 05/02/19 05:00 105 H 18 05/02/19 04:07 97.6 F 105 H 15 125/96 99 05/02/19 03:12 16 132/96 05/02/19 01:19 105 H 20 132/96 98 05/02/19 00:09 20 05/01/19 23:18 98.6 F 110 H 20 138/92 98 Intake and Output 05/01/19 05/01/19 05/02/19 14:59 22:59 06:59 Other: Weight 51 kg Constitutional: No acute distress, conversant, pleasant Eyes: Anicteric sclerae, moist conjunctiva, no lid-lag Pupils equal round reactive to light ENMT: NC/AT Oropharynx clear, no erythema, exudates Neck: Supple, FROM, no masses, or JVD No carotid bruits No thyromegaly Lungs: Clear to auscultation Clear to percussion Normal respiratory effort, no accessory muscle use Cardiovascular: Heart regular in rate and rhythm, No murmurs, gallops, or rubs Bilateral lower extremity edema +1 pitting Abdominal: Soft Nontender, no guarding, rebound or rigidity Abdomen moving with respiration Normoactive bowel sounds No hepatomegaly, No splenomegaly No palpable mass No abdominal wall hernia noted Skin: Normal temperature, tone, texture, turgor No induration No subcutaneous nodules No rash, lesions No ulcers Extremities: No digital cyanosis No clubbing Right above-knee and left below-knee amputation Radial pulses intact and symmetrical No calf tenderness Psychiatric: Alert and oriented to person, place and time Appropriate affect fair judgment Neuro Muscles Strength 4/5 in all 4 extremities Sensation to light touch grossly present throughout Cranial nerves II-XII grossly intact No focal sensory deficits Lymphatics: no palpable cervical or supraclavicular , or inguinal lymph nodes Results CBC & Chem 7: 05/02/19 00:05 05/02/19 00:05 Labs: Abnormal Lab Results - Last 24 Hours (Table) 05/02/19 05/02/19 Range/Units 00:05 00:05 RBC 3.27 L (3.80-5.40) m/uL Hgb 10.1 L (11.4-16.0) gm/dL Hct 31.7 L (34.0-46.0) % RDW 15.9 H (11.5-15.5) % Sodium 136 L (137-145) mmol/L Potassium 5.2 H (3.5-5.1) mmol/L Chloride 108 H (98-107) mmol/L Carbon Dioxide 20 L (22-30) mmol/L BUN 22 H (7-17) mg/dL Thrombosis Risk Factor Assmnt - Choose All That Apply Any of the Below Risk Factors Present?: Yes Each Factor Represents 1 point: Age 41-60 years Other Risk Factors: Yes Each Risk Factor Represents 3 Points: History of DVT/PE Thrombosis Risk Factor Assessment Total Risk Factor Score: 4 Thrombosis Risk Factor Assessment Level: Moderate Risk Assessment and Plan Assessment: 48-year-old female with history of 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, recurrent venous thromboembolism on recently switched back to Lovenox, admitted under observation with anticipated length of stay less than 48 hours due to acute on chronic exacerbation of systolic CHF Plan: Acute exacerbation of chronic systolic CHF most recent left ventricular ejection fraction less than 20% Continue home meds IV diuresis Hold spironolactone secondary to hyperkalemia Cardiology consult Cardiac monitoring Strict I's and O's Mild hyperkalemia Follow-up morning labs Chronic anemia currently her hemoglobin higher than her baseline Patient denies any evidence of bleeding Recurrent venous thromboembolic exam Patient on Lovenox twice a day Chronic conditions 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
[2019-05-02 07:14] LABS: Anisocytosis Slight; Basophils % (A) 1 %; Eosinophils # (A) 0.1 k/uL (0-0.7); Eosinophils % (A) 2 %; HCT 31.8 % (34.0-46.0); HGB 9.6 gm/dL (11.4-16.0); Hypochromasia Marked; Lymphocytes # (A) 1.2 k/uL (1.0-4.8); Lymphocytes % (A) 29 %; MCH 30.1 pg (25.0-35.0); MCV 100.2 fL (80.0-100.0); Macrocytosis Slight; Mean Platelet Volume 7.8; Monocytes # (A) 0.2 k/uL (0-1.0); Monocytes % (A) 4 %; Neutrophils # (A) 2.7 k/uL (1.3-7.7); Neutrophils % (A) 64 %; Platelet Count 235 k/uL (150-450); RBC 3.18 m/uL (3.80-5.40); RDW 16.2 % (11.5-15.5); WBC 4.3 k/uL (3.8-10.6)
[2019-05-02 07:29] LABS: Calcium 8.5 mg/dL (8.4-10.2); Potassium 4.7 mmol/L (3.5-5.1)
[2019-05-02] MEDS: IPRATROPIUM-ALBUTEROL 3 ML NEB INHALATION PRN (07:48)
[2019-05-02] MEDS: SUCRALFATE 1 GM TAB PO SCH (09:02)
[2019-05-02] MEDS: LISINOPRIL 5 MG TAB PO SCH (09:02)
[2019-05-02] MEDS: FAMOTIDINE 20 MG TAB PO SCH (09:03)
[2019-05-02] MEDS: CLOPIDOGREL 75 MG TAB PO SCH (09:03)
[2019-05-02] MEDS: ENOXAPARIN 40 MG/0.4 ML SYRINGE SQ SCH ×2 (09:03→20:41)
[2019-05-02] MEDS: HYDROmorphone 0.5 MG/0.5 ML SYRINGE IVP PRN ×3 (11:45→20:41)
[2019-05-02 13:10] VITALS: BMI 19.9
[2019-05-02] MEDS: CYCLOBENZAPRINE 10 MG TAB PO PRN (18:05)
[2019-05-02] MEDS: ALPRAZolam 1 MG TAB PO PRN (20:42)
[2019-05-02 23:41] VITALS: RESP 16
[2019-05-03] MEDS: FUROSEMIDE 10 MG/ML 4 ML VIAL IV SCH (04:04)
[2019-05-03] MEDS: HYDROmorphone 0.5 MG/0.5 ML SYRINGE IVP PRN ×5 (05:16→18:27)
[2019-05-03] MEDS: IPRATROPIUM-ALBUTEROL 3 ML NEB INHALATION PRN ×2 (07:47→15:17)
[2019-05-03] MEDS: CARVEDILOL 6.25 MG TAB PO SCH ×2 (07:55→17:35)
[2019-05-03] MEDS: CYCLOBENZAPRINE 10 MG TAB PO PRN (07:55)
[2019-05-03] MEDS: LISINOPRIL 5 MG TAB PO SCH (07:55)
[2019-05-03] MEDS: FAMOTIDINE 20 MG TAB PO SCH (07:55)
[2019-05-03] MEDS: ALPRAZolam 1 MG TAB PO PRN (07:55)
[2019-05-03] MEDS: ENOXAPARIN 40 MG/0.4 ML SYRINGE SQ SCH (07:56)
[2019-05-03] MEDS: CLOPIDOGREL 75 MG TAB PO SCH (07:56)
[2019-05-03] MEDS: SUCRALFATE 1 GM TAB PO SCH (08:24)
[2019-05-03 08:44] LABS: Calcium 8.3 mg/dL (8.4-10.2); Potassium 4.2 mmol/L (3.5-5.1)
[2019-05-03] MEDS ORDERED: FUROSEMIDE 10 MG/ML 4 ML VIAL IV SCH (09:00)
[2019-05-03 09:32] LABS: Basophils % (A) 1 %; Eosinophils # (A) 0.1 k/uL (0-0.7); Eosinophils % (A) 4 %; HCT 39.2 % (34.0-46.0); HGB 11.5 gm/dL (11.4-16.0); Hypochromasia Marked; Lymphocytes # (A) 0.8 k/uL (1.0-4.8); Lymphocytes % (A) 24 %; MCH 29.3 pg (25.0-35.0); MCHC 29.4 g/dL (31.0-37.0); MCV 99.9 fL (80.0-100.0); Macrocytosis Slight; Mean Platelet Volume 8.6; Monocytes # (A) 0.2 k/uL (0-1.0); Monocytes % (A) 7 %; Neutrophils % (A) 63 %; Platelet Count 342 k/uL (150-450); RBC 3.93 m/uL (3.80-5.40); RDW 15.5 % (11.5-15.5); WBC 3.2 k/uL (3.8-10.6)
--- NOTE | 2019-05-03 10:22 | P.PN ---
Subjective Progress Note Date: 05/03/19 Principal diagnosis: CHF exacerbation Patient was seen and examined. No acute events overnight. Patient reports a slight improvement in her breathing continues to complain of shortness of breath that is intermittent. She denies any chest pain or palpitations. Also complains of bilateral lower extremity swelling that is significantly improved since yesterday. States that she is unable to put on her prosthesis. She denies any nausea or vomiting. No fever or chills. Objective - Vital Signs Vital signs: Vital Signs Temp 97.7 F 05/03/19 04:50 Pulse 102 H 05/03/19 08:00 Resp 16 05/03/19 04:50 BP 94/61 05/03/19 04:50 Pulse Ox 100 05/03/19 07:47 Intake & Output 05/02/19 05/03/19 05/03/19 18:59 06:59 18:59 Intake Total 480 10 Output Total 400 500 Balance 80 -490 Weight 51 kg 51 kg Intake: IV 10 Invasive Line 1 10 Oral 480 Output: Urine 400 500 Other: Voiding Method Bedpan Bedpan # Voids 1 2 - Exam General: [non toxic], [no distress], [appears at stated age] Derm: [warm], [dry] Head: [atraumatic], [normocephalic], [symmetric] Eyes: [EOMI], [no lid lag], [anicteric sclera] Mouth: [no lip lesion], [mucus membranes moist] Cardiovascular: [S1S2 reg], [no murmur] Lungs: [CTA bilateral], [no rhonchi, no rales] , [no accessory muscle use] Abdominal: [soft], [ nontender to palpation], [no guarding], [no appreciable organomegaly] Ext: [no gross muscle atrophy], [no edema], [right AKA, left BKA] Neuro: [ CN II-XI grossly intact], [no focal neuro deficits] Psych: [Alert], [oriented], [appropriate affect] - Labs CBC & Chem 7: 05/03/19 08:12 05/03/19 08:12 Labs: Abnormal Lab Results - Last 24 Hours (Table) 05/03/19 05/03/19 Range/Units 08:12 08:12 WBC 3.2 L (3.8-10.6) k/uL MCHC 29.4 L (31.0-37.0) g/dL BUN 28 H (7-17) mg/dL Creatinine 1.15 H (0.52-1.04) mg/dL Glucose 134 H (74-99) mg/dL Calcium 8.3 L (8.4-10.2) mg/dL Assessment and Plan Assessment: Assessment and Plan Acute on chronic systolic CHF exacerbation with EF less than 20% Recurrent venous thromboembolic Acute kidney injury Severe protein calorie malnutrition Chronic conditions: Asthma, well-controlled sticky platelet syndrome post bilateral lower extremity amputation, anxiety BNP is 41,900. Chest x-ray negative. CTA with runoff shows trace left pleural effusion. December 2018 echocardiogram shows EF less than 20% with severe global hypokinesis. Plans: Continue diuresis with Lasix 40 mg IV twice a day. Strict intake and output. Daily weights. K >4 and MG greater than 2. Follow cardiology recommendations. Follow-up echocardiogram. As seen on CTA with runoff. Plans: Continue Lovenox therapeutic dose twice a day. Creatinine 1.15, worsening. Likely secondary to IV diuresis. Plans: Daily BMP. Avoid nephrotoxins. BMI 19.9. Plans: Consult dietitian. O2 per NC to maintain O2 saturation g reater than 92%. Patient has shown considerable improvement. Plans for possible discharge today or tomorrow depending on cardiology recommendations. Patient requesting nebulizer machine, will discuss with social work.
[2019-05-03] MEDS ORDERED: SPIRONOLACTONE 25 MG TAB PO SCH (11:00)
--- NOTE | 2019-05-03 12:03 | P.CRDCN ---
History of Present Illness History of present illness: This is a pleasant 48-year-old -[place] female past medical history significant for sticky platelets syndrome, severe non-ischemic cardiomyopathy with EF less than 20%, chronic systolic heart failure, severe peripheral vascular disease s/o right AKA and left BKA, recurrent PE's and DVT's, chronic kidney disease and chronic pain. She follows in the office with Dr. Gary. We have been asked to see her in consultation for shortness of breath. Currently being diuresed with IV lasix. She presented to the hospital with symptoms of shortness of breath, lower extremity pain/swelling and chest tightness. She is currently maintained on plavix and lovenox since having another PE a couple of months ago at [facility]. Prior to that she was on xarelto and plavix. She is seen and examined resting comfortably in no acute distress. She complains of ongoing shortness of breath and feels like her legs are still tight. EKG reveals sinus tachycardia heart rate 111, no acute ST or Twave abnormalities. Chest xray negative for an acute cardiopulmonary process. CT of the aorta with runoff reveals left lower lobe subsegmental atelectasis with a trace pleural effusion, occluded aorta and iliac arteries at the level of the kidneys, patent major mesenteric arteries, mild ascites, scattered collateral vessels of the bilateral lower extremities with major vessels occluded, soft tissue stranding her presenting increased volume status. Laboratory data reviewed, WBC 3.2, hemoglobin 11.5, platelets 342, sodium 137, potassium 4.2, creatinine 1.15 with a GFR of 56, cardiac enzymes negative 2, proBNP 41,900. Current cardiac medications include carvedilol 6.25 mg twice a day, Plavix 75 mg daily, Lovenox 40 mg twice a day, Lasix 40 mg twice a day, lisinopril 5 mg daily and potassium supplementation daily. Most recent echocardiogram 12/2018 reveals impaired LV systolic function with EF less then 20%, moderately dilated LA, moderate MR, mild TR, solid mass in the LV. At the time of my exam: CONSTITUTIONAL: Denies fever. Denies chills. EYES: Denies blurred vision. Denies vision changes. Denies eye pain. EARS, NOSE, MOUTH & THROAT: Denies headache. Denies sore throat. Denies ear pain. CARDIOVASCULAR: Denies chest pain. Complains of shortness of breath. Denies orthopnea. Denies PND. Denies palpitations. RESPIRATORY: Denies cough. GASTROINTESTINAL: Denies abdominal pain. Denies diarrhea. Denies constipation. Denies nausea. Denies vomiting. MUSCULOSKELETAL: Denies myalgias. INTEGUMENTARY: Denies pruitis. Denies rash. NEUROLOGIC: Denies numbness. Denies tingling. Denies weakness. PSYCHIATRIC: Denies anxiety. Denies depression. ENDOCRINE: Denies fatigue. Denies weight change. Denies polydipsia. Denies polyurina. GENITOURINARY: Denies burning, hematuria or urgency with micturation. HEMATOLOGIC: Denies history of anemia. Denies bleeding. Blood pressure 94/61 heart rate 82 afebrile maintaining oxygen saturation on nasal cannula GENERAL: This is a 48-year-old for can [place] female in no apparent distress at the time of my examination. HEENT: Head is atraumatic, normocephalic. Pupils are equal, round. Sclerae anicteric. Conjunctivae are clear. Mucous membranes of the mouth are moist. Neck is supple. There is jugular venous distention noted bilaterally. No carotid bruit is heard. LUNGS: Bibasilar rales, no rhonchi or wheezes. No chest wall tenderness is noted on palpation or with deep breathing. HEART: Regular rate and rhythm without murmurs, rubs or gallops. S1 and S2 heard. ABDOMEN: Soft, nontender. Bowel sounds are heard. No organomegaly noted. EXTREMITIES: No evidence of peripheral edema and no calf tenderness noted. Right AKA, left BKA. VASCULAR: Radial pulses palpated, no evidence of clubbing. NEUROLOGIC: Patient is awake, alert and oriented x3. ASSESSMENT Acute on chronic systolic heart failure, EF less than 20% Non-ischemic cardiomyopathy LV mass Sticky platelet syndrome Recurrent PE and DVT, maintained on lovenox injections daily Severe peripheral vascular disease secondary to sticky platelet syndrome History of right AKA and left BKA Hypertension Chronic kidney disease PLAN Obtain 2-D echocardiogram and Doppler study to assess cardiac structure and function. Specifically to assess LV mass status. Continue IV diuresis. Increase lisinopril to 5 mg BID and initiate on aldactone 25 mg daily. Continue coreg, plavix and lovenox as previously ordered. Follow kidney function and electrolytes in the morning along with daily weights. Thank you kindly for this consultation. Nurse Practitioner note has been reviewed, I agree with a documented findings and plan of care. Patient was seen and examined. Past Medical History Past Medical History: Asthma, Heart Failure, CVA/TIA, Deep Vein Thrombosis (DVT), Osteoarthritis (OA), Pulmonary Embolus (PE), Renal Disease Additional Past Medical History / Comment(s): sticky platelet syndrome, bronchitis, anx/depression, falls renal failure History of Any Multi-Drug Resistant Organisms: ESBL Date of last positivie culture/infection: 10/15/18 ESBL MDRO Source:: Urine Past Surgical History: Cholecystectomy Additional Past Surgical History / Comment(s): ltBKA, left lower leg, aortic bypass right leg, right leg fasciotomy.pt stated had another vascular sx after the fasciotomy [facility] unclear as to exactly what was done Rt AKA Past Anesthesia/Blood Transfusion Reactions: No Reported Reaction Additional Past Anesthesia/Blood Transfusion Reaction / Comment(s): pt stated has had a blood transfusion in past-no reaction. Past Psychological History: Anxiety, Depression Additional Psychological History / Comment(s): Is cared for by her mother in her own private residence, denies depression at this time. That a current tobacco smoker. No animal exposures Smoking Status: Former smoker Past Alcohol Use History: None Reported Additional Past Alcohol Use History / Comment(s): started smoking at age 22; quit 2018 was smoking 1/2ppd. Past Drug Use History: None Reported - Past Family History Mother History Unknown: Yes Additional Family Medical History / Comment(s): MS, legally blind, cataracts Father Family Medical History: No Reported History Additional Family Medical History / Comment(s): Was younger when he , car accident Medications and Allergies Home Medications Medication Instructions Recorded Confirmed Type Clopidogrel Bisulfate [Plavix] 75 mg PO DAILY 12/06/18 05/01/19 History Cyclobenzaprine [Flexeril] 10 mg PO TID PRN 12/27/18 05/01/19 History Nitroglycerin Sl Tabs [Nitrostat] 0.4 mg SUBLINGUAL Q5M PRN tab 12/28/18 05/01/19 Rx Famotidine [Pepcid] 20 mg PO DAILY #20 tab 03/11/19 05/01/19 Rx Lidocaine 5% Patch [Lidoderm 5% 1 patch TOPICAL DAILY #30 patch 03/11/19 05/01/19 Rx Patch] Albuterol Sulfate [Proair Hfa] 1 puff INHALATION RT-Q6H PRN 04/09/19 05/01/19 History Carvedilol [Coreg] 6.25 mg PO BID-W/MEALS #60 tab 04/12/19 05/01/19 Rx Furosemide [Lasix] 40 mg PO BID@0900,1600 #60 tab 04/12/19 05/01/19 Rx Lisinopril [Zestril] 5 mg PO DAILY #30 tab 04/12/19 05/01/19 Rx Potassium Chloride ER [K-Dur 20] 20 meq PO DAILY #30 tab.er.prt 04/12/19 05/01/19 Rx ALPRAZolam [Xanax] 2 mg PO DAILY PRN 05/01/19 05/01/19 History Enoxaparin [Lovenox] 40 mg SQ BID 05/01/19 05/01/19 History HYDROmorphone HCL [Dilaudid] 8 mg PO TID 05/01/19 05/01/19 History Sucralfate [Carafate] 1 gram PO DAILY 05/01/19 05/01/19 History Allergies Allergy/AdvReac Type Severity Reaction Status Date / Time ibuprofen Allergy Unknown Verified 05/01/19 23:24 trazodone Allergy Chest Pain Verified 05/01/19 23:24 Physical Exam Vitals: Vital Signs Temp Pulse Pulse Resp BP Pulse Ox 05/03/19 08:00 102 H 86 05/03/19 07:47 95 100 05/03/19 04:50 97.7 F 82 16 94/61 100 05/03/19 02:00 96/63 05/02/19 23:30 97.4 F L 73 16 89/52 100 05/02/19 20:00 98.7 F 82 15 98/61 100 05/02/19 16:00 90 19 124/86 100 05/02/19 12:00 81 19 115/80 98 Intake and Output 05/02/19 05/03/19 05/03/19 22:59 06:59 14:59 Intake Total 10 Output Total 500 Balance 10 -500 Intake: IV 10 Invasive Line 1 10 Output: Urine 500 Other: Voiding Method Toilet Bedpan Bedpan Bedpan # Voids 1 2 Weight 51 kg Results 05/03/19 08:12 05/03/19 08:12 Cardiac Enzymes 05/03/19 Range/Units 08:12 Troponin I <0.012 (0.000-0.034) ng/mL CBC 05/03/19 Range/Units 08:12 WBC 3.2 L (3.8-10.6) k/uL RBC 3.93 (3.80-5.40) m/uL Hgb 11.5 (11.4-16.0) gm/dL Hct 39.2 (34.0-46.0) % Plt Count 342 (150-450) k/uL Comprehensive Metabolic Panel 05/03/19 Range/Units 08:12 Sodium 137 (137-145) mmol/L Potassium 4.2 (3.5-5.1) mmol/L Chloride 101 (98-107) mmol/L Carbon Dioxide 24 (22-30) mmol/L BUN 28 H (7-17) mg/dL Creatinine 1.15 H (0.52-1.04) mg/dL Glucose 134 H (74-99) mg/dL Calcium 8.3 L (8.4-10.2) mg/dL Current Medications Generic Name Dose Route Start Last Admin Trade Name Freq PRN Reason Stop Dose Admin Albuterol/Ipratropium 3 ml 05/02/19 06:21 05/03/19 07:47 Duoneb 0.5 Mg-3 Mg/3 Ml Soln INHALATION 3 ml RT-QID PRN Administration Shortness Of Breath Or Wheezing Alprazolam 2 mg 05/02/19 06:13 05/03/19 07:55 Xanax PO 2 mg DAILY PRN Administration Anxiety Carvedilol 6.25 mg 05/02/19 07:30 05/03/19 07:55 Coreg PO 6.25 mg BID-W/MEALS DEIRDRE Administration Clopidogrel Bisulfate 75 mg 05/02/19 09:00 05/03/19 07:56 Plavix PO 75 mg DAILY DEIRDRE Administration Cyclobenzaprine HCl 10 mg 05/02/19 06:13 05/03/19 07:55 Flexeril PO 10 mg TID PRN Administration Muscle Spasm Enoxaparin Sodium 40 mg 05/02/19 09:00 05/03/19 07:56 Lovenox SQ 40 mg BID DEIRDRE Administration Famotidine 20 mg 05/02/19 09:00 05/03/19 07:55 Pepcid PO 20 mg DAILY DEIRDRE Administration Furosemide 40 mg 05/03/19 09:00 05/03/19 08:25 Lasix IV 40 mg Q12HR DEIRDRE Administration Hydromorphone HCl 0.5 mg 05/02/19 06:52 05/03/19 08:22 Dilaudid IVP 0.5 mg Q3HR PRN Administration Pain Lisinopril 5 mg 05/02/19 09:00 05/03/19 07:55 Zestril PO 5 mg DAILY DEIRDRE Administration Sucralfate 1 gm 05/02/19 09:00 05/03/19 08:24 Carafate PO Not Given DAILY DEIRDRE Intake and Output 05/02/19 05/03/19 05/03/19 22:59 06:59 14:59 Intake Total 10 Output Total 500 Balance 10 -500 Intake: IV 10 Invasive Line 1 10 Output: Urine 500 Other: Voiding Method Toilet Bedpan Bedpan Bedpan # Voids 1 2 Weight 51 kg 05/03/19 08:12 05/03/19 08:12
--- NOTE | 2019-05-03 12:07 | ECHOF ---
Referral Reason:cp, sob, lv mass MEASUREMENTS -------- HEIGHT: 160.0 cm WEIGHT: 50.8 kg BP: 94/61 IVSd: 0.7 cm (0.6 - 1.1) LVIDd: 5.3 cm (3.9 - 5.3) LVPWd: 0.8 cm (0.6 - 1.1) IVSs: 1.4 cm LVIDs: 4.4 cm LVPWs: 1.4 cm LAESV Index (A-L): 26.57 ml/m Ao Diam: 2.9 cm (2.0 - 3.7) AV Cusp: 1.8 cm (1.5 - 2.6) LA Diam: 3.3 cm (2.7 - 3.8) EPSS: 2.5 cm MV E Main: 0.51 m/s MV DecT: 106 ms MV A Main: 0.58 m/s MV E/A Ratio: 0.89 RAP: 5.00 mmHg RVSP: 7.19 mmHg MV EF SLOPE: 117.06 mm/s (70 - 150) MV EXCURSION: 2.25 cm (> 18.000) FINDINGS -------- Sinus rhythm. This was a technically good study. The left ventricle is mildly dilated. Left ventricular wall thickness is normal. There is severe global hypokinesis of LV . Overall left ventricular systolic function is severely impaired with, an EF < 20%. The right ventricle is normal in size. The left atrial size is normal. Left atrium is normal size by volume. The right atrial size is normal. Lumason used The aortic valve is trileaflet and appears structurally normal. The mitral valve is normal. Mild mitral regurgitation is present. The tricuspid valve appears structurally normal. Mild tricuspid regurgitation present. Right vent ricular systolic pressure is normal at < 35 mmHg. There is no pulmonic regurgitation present. The aortic root size is normal. The inferior vena cava was not well visualized. There is a trivial pericardial effusion present. CONCLUSIONS -------- 1. Sinus rhythm. 2. This was a technically good study. 3. The left ventricle is mildly dilated. 4. Left ventricular wall thickness is normal. 5. There is severe global hypokinesis of LV . 6. Overall left ventricular systolic function is severely impaired with, an EF < 20%. 7. The right ventricle is normal in size. 8. The left atrial size is normal. 9. Left atrium is normal size by volume. 10. The right atrial size is normal. 11. Lumason used. No thrombus seen. 12. The aortic valve is trileaflet and appears structurally normal. 13. The mitral valve is normal. 14. Mild mitral regurgitation is present. 15. The tricuspid valve appears structurally normal. 16. Mild tricuspid regurgitation present. 17. Right ventricular systolic pressure is normal at < 35 mmHg. 18. There is no pulmonic regurgitation present. 19. The aortic root size is normal. 20. The inferior vena cava was not well visualized. 21. There is a trivial pericardial effusion present. BULKER: Asia Quintero RDCS
[2019-05-03 13:15] VITALS: BP 92/58; TEMP 97.2
[2019-05-03 16:39] VITALS: PULSE 104
[2019-05-03] MEDS ORDERED: LISINOPRIL 5 MG TAB PO SCH (21:00)
== END 2019-05-03 19:10 | disposition left against medical advice (07) ==
LOC: EC 23:14 → 3SCARD 05-02 03:55 → 3NMEDONC 05-02 22:59
PROVIDERS: ADMIT Internal Medicine; ATTEND Internal Medicine
DX: I13.0 Hypertensive heart and chronic kidney disease with heart failure and stage 1 through stage 4 chronic kidney disease, or unspecified chronic kidney disease (principal); I50.23 Acute on chronic systolic (congestive) heart failure; D64.9 Anemia, unspecified; E43 Unspecified severe protein-calorie malnutrition; E87.5 Hyperkalemia; F17.200 Nicotine dependence, unspecified, uncomplicated; F32.9 Major depressive disorder, single episode, unspecified; F41.9 Anxiety disorder, unspecified; D69.1 Qualitative platelet defects; I42.9 Cardiomyopathy, unspecified; I73.9 Peripheral vascular disease, unspecified; J45.909 Unspecified asthma, uncomplicated; N17.9 Acute kidney failure, unspecified; N18.9 Chronic kidney disease, unspecified; Z68.1 Body mass index [BMI] 19.9 or less, adult; Z79.02 Long term (current) use of antithrombotics/antiplatelets; Z79.899 Other long term (current) drug therapy; Z89.611 Acquired absence of right leg above knee; Z89.512 Acquired absence of left leg below knee; Z89.511 Acquired absence of right leg below knee; Z86.73 Personal history of transient ischemic attack (TIA), and cerebral infarction without residual deficits; Z86.718 Personal history of other venous thrombosis and embolism; Z86.711 Personal history of pulmonary embolism; Z82.1 Family history of blindness and visual loss
CPT/HCPCS: 96366 ×2; 96372 ×2; 96376 ×3; 96365; 96375; 99285; 36415; 94640 ×3; 94760; 93005; 83880; 80048 ×2; 83605; 84484 ×2; 85025 ×2; 85610; 85730; 71046; 75635; 71275; G0378 ×3; C8929; J2270; J1644 ×2; J1940 ×2; J1650 ×2; J1170 ×3; Q9950; Q9967; 93306

== ENCOUNTER 2019-05-11 15:27 | Inpatient (IN) | payer MEDICARE, OTHER ==
[2019-05-11] MEDS ORDERED: IPRATROPIUM-ALBUTEROL 3 ML NEB INHALATION STA (15:44)
[2019-05-11 15:58] LABS: Basophils % (A) 0 %; Eosinophils # (A) 0.2 k/uL (0-0.7); Eosinophils % (A) 3 %; HCT 36.1 % (34.0-46.0); HGB 11.1 gm/dL (11.4-16.0); Hypochromasia Slight; Lymphocytes % (A) 16 %; MCH 30.3 pg (25.0-35.0); MCHC 30.7 g/dL (31.0-37.0); MCV 98.7 fL (80.0-100.0); Macrocytosis Slight; Mean Platelet Volume 7.1; Monocytes # (A) 0.3 k/uL (0-1.0); Monocytes % (A) 4 %; Neutrophils # (A) 4.8 k/uL (1.3-7.7); Neutrophils % (A) 76 %; Platelet Count 307 k/uL (150-450); RBC 3.66 m/uL (3.80-5.40); RDW 15.4 % (11.5-15.5); WBC 6.4 k/uL (3.8-10.6)
[2019-05-11] MEDS ORDERED: HYDROmorphone 1 MG/ML 1 ML SYRINGE IVP STA ×2 (15:58→17:20)
[2019-05-11 16:07] LABS: INR 0.9 (<1.2); Partial Thromboplastin Time 23.5 sec (22.0-30.0); Prothrombin Time 10.2 sec (9.0-12.0)
--- NOTE | 2019-05-11 16:09 | ED ---
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 She also had an episode where she states she briefly lost her vision and could not see with this was brief and now is back to normal she was rather breath she is a former smoker she is states that she was told she should be a breathing medication but is not currently. She denies any fevers chills nausea vomiting sweats or other symptoms at this time. MD Complaint: shortness of breath - Related Data Home Medications Medication Instructions Recorded Confirmed Clopidogrel Bisulfate [Plavix] 75 mg PO DAILY 12/06/18 05/11/19 Cyclobenzaprine [Flexeril] 10 mg PO TID PRN 12/27/18 05/11/19 Albuterol Sulfate [Proair Hfa] 1 puff INHALATION RT-Q6H PRN 04/09/19 05/11/19 ALPRAZolam [Xanax] 2 mg PO DAILY PRN 05/01/19 05/11/19 Enoxaparin [Lovenox] 40 mg SQ BID 05/01/19 05/11/19 HYDROmorphone HCL [Dilaudid] 8 mg PO TID 05/01/19 05/11/19 Sucralfate [Carafate] 1 gram PO DAILY 05/01/19 05/11/19 Furosemide [Lasix] 40 mg PO DAILY PRN 05/11/19 05/11/19 Previous Rx's Medication Instructions Recorded Nitroglycerin Sl Tabs [Nitrostat] 0.4 mg SUBLINGUAL Q5M PRN tab 12/28/18 Famotidine [Pepcid] 20 mg PO DAILY #20 tab 03/11/19 Carvedilol [Coreg] 6.25 mg PO BID-W/MEALS #60 tab 04/12/19 Lisinopril [Zestril] 5 mg PO DAILY #30 tab 04/12/19 Allergies Allergy/AdvReac Type Severity Reaction Status Date / Time ibuprofen Allergy Unknown Verified 05/11/19 16:09 trazodone Allergy Chest Pain Verified 05/11/19 16:09 Review of Systems ROS Statement: Those systems with pertinent positive or pertinent negative responses have been documented in the HPI. ROS Other: All systems not noted in ROS Statement are negative. Past Medical History Past Medical History: Asthma, Heart Failure, CVA/TIA, Deep Vein Thrombosis (DVT), Osteoarthritis (OA), Pulmonary Embolus (PE), Renal Disease Additional Past Medical History / Comment(s): sticky platelet syndrome, bronchitis, anx/depression, falls renal failure History of Any Multi-Drug Resistant Organisms: ESBL Date of last positivie culture/infection: 10/15/18 ESBL MDRO Source:: Urine Past Surgical History: Cholecystectomy Additional Past Surgical History / Comment(s): ltBKA, left lower leg, aortic bypass right leg, right leg fasciotomy.pt stated had another vascular sx after the fasciotomy at [facility] unclear as to exactly what was done Rt AKA Past Anesthesia/Blood Transfusion Reactions: No Reported Reaction Additional Past Anesthesia/Blood Transfusion Reaction / Comment(s): pt stated has had a blood transfusion in past-no reaction. Past Psychological History: Anxiety, Depression Smoking Status: Former smoker Past Alcohol Use History: None Reported Past Drug Use History: None Reported - Past Family History Mother History Unknown: Yes Additional Family Medical History / Comment(s): MS, legally blind, cataracts Father Family Medical History: No Reported History Additional Family Medical History / Comment(s): Was younger when he , car accident General Exam - General Exam Comments Initial Comments: This is a well-developed asthenic appearing female who is awake alert oriented 3 Limitations: no limitations General appearance: alert, anxious Head exam: Present: atraumatic, normocephalic, normal inspection Eye exam: Present: normal appearance, PERRL, EOMI. Absent: scleral icterus, conjunctival injection, periorbital swelling ENT exam: Present: normal exam, mucous membranes moist Neck exam: Present: normal inspection, full ROM, other. Absent: tenderness, meningismus, lymphadenopathy Respiratory exam: Present: decreased breath sounds (No stridor JVD or bruits). Absent: respiratory distress, wheezes, rales, rhonchi, stridor Cardiovascular Exam: Present: normal rhythm, tachycardia, normal heart sounds. Absent: systolic murmur, diastolic murmur, rubs, gallop, clicks GI/Abdominal exam: Present: soft, normal bowel sounds. Absent: distended, tenderness, guarding, rebound, rigid Extremities exam: Present: full ROM, normal capillary refill, other (Left below- knee amputation with a cool lower extremity which is normal for her she states also above the patient on the right). Absent: tenderness, pedal edema, joint swelling, calf tenderness Back exam: Present: normal inspection Neurological exam: Present: alert, oriented X3, CN II-XII intact Psychiatric exam: Present: normal affect, normal mood Skin exam: Present: warm, dry, intact, normal color. Absent: rash Course Vital Signs 05/11/19 05/11/19 05/11/19 15:28 15:59 16:09 Temperature 98.8 F Pulse Rate 103 H 100 110 H Respiratory 18 Rate Blood Pressure 143/104 O2 Sat by Pulse 100 Oximetry 05/11/19 17:16 Temperature 98.6 F Pulse Rate 97 Respiratory 18 Rate Blood Pressure 122/89 O2 Sat by Pulse 100 Oximetry - Reevaluation(s) Reevaluation #1: 05/11/19 18:15 Evaluation patient reveals some minimal improvement thus far. Medical Decision Making - Medical Decision Making I did discuss findings with patient family as well as Dr. Flannery who did come see the patient patient be admitted for congestive heart failure there is also likely a COPD component. - Lab Data Result diagrams: 05/11/19 15:49 05/11/19 15:49 Lab Results 05/11/19 05/11/19 05/11/19 Range/Units 15:49 15:49 15:49 WBC 6.4 (3.8-10.6) k/uL RBC 3.66 L (3.80-5.40) m/uL Hgb 11.1 L (11.4-16.0) gm/dL Hct 36.1 (34.0-46.0) % MCV 98.7 (80.0-100.0) fL MCH 30.3 (25.0-35.0) pg MCHC 30.7 L (31.0-37.0) g/dL RDW 15.4 (11.5-15.5) % Plt Count 307 (150-450) k/uL Neutrophils % 76 % Lymphocytes % 16 % Monocytes % 4 % Eosinophils % 3 % Basophils % 0 % Neutrophils # 4.8 (1.3-7.7) k/uL Lymphocytes # 1.0 (1.0-4.8) k/uL Monocytes # 0.3 (0-1.0) k/uL Eosinophils # 0.2 (0-0.7) k/uL Basophils # 0.0 (0-0.2) k/uL Hypochromasia Slight Macrocytosis Slight PT (9.0-12.0) sec INR (<1.2) APTT (22.0-30.0) sec Sodium 140 (137-145) mmol/L Potassium 4.6 (3.5-5.1) mmol/L Chloride 110 H (98-107) mmol/L Carbon Dioxide 23 (22-30) mmol/L Anion Gap 7 mmol/L BUN 18 H (7-17) mg/dL Creatinine 0.93 (0.52-1.04) mg/dL Est GFR (CKD-EPI)AfAm 84 (>60 ml/min/1.73 sqM) Est GFR (CKD-EPI)NonAf 72 (>60 ml/min/1.73 sqM) Glucose 63 L (74-99) mg/dL Calcium 8.9 (8.4-10.2) mg/dL Magnesium 2.2 (1.6-2.3) mg/dL Total Bilirubin 0.4 (0.2-1.3) mg/dL AST 54 H (14-36) U/L ALT 36 (9-52) U/L Alkaline Phosphatase 114 (38-126) U/L Troponin I (0.000-0.034) ng/mL NT-Pro-B Natriuret Pep 15728 pg/mL Total Protein 7.1 (6.3-8.2) g/dL Albumin 3.4 L (3.5-5.0) g/dL 05/11/19 05/11/19 Range/Units 15:49 15:49 WBC (3.8-10.6) k/uL RBC (3.80-5.40) m/uL Hgb (11.4-16.0) gm/dL Hct (34.0-46.0) % MCV (80.0-100.0) fL MCH (25.0-35.0) pg MCHC (31.0-37.0) g/dL RDW (11.5-15.5) % Plt Count (150-450) k/uL Neutrophils % % Lymphocytes % % Monocytes % % Eosinophils % % Basophils % % Neutrophils # (1.3-7.7) k/uL Lymphocytes # (1.0-4.8) k/uL Monocytes # (0-1.0) k/uL Eosinophils # (0-0.7) k/uL Basophils # (0-0.2) k/uL Hypochromasia Macrocytosis PT 10.2 (9.0-12.0) sec INR 0.9 (<1.2) APTT 23.5 (22.0-30.0) sec Sodium (137-145) mmol/L Potassium (3.5-5.1) mmol/L Chloride (98-107) mmol/L Carbon Dioxide (22-30) mmol/L Anion Gap mmol/L BUN (7-17) mg/dL Creatinine (0.52-1.04) mg/dL Est GFR (CKD-EPI)AfAm (>60 ml/min/1.73 sqM) Est GFR (CKD-EPI)NonAf (>60 ml/min/1.73 sqM) Glucose (74-99) mg/dL Calcium (8.4-10.2) mg/dL Magnesium (1.6-2.3) mg/dL Total Bilirubin (0.2-1.3) mg/dL AST (14-36) U/L ALT (9-52) U/L Alkaline Phosphatase (38-126) U/L Troponin I 0.014 (0.000-0.034) ng/mL NT-Pro-B Natriuret Pep pg/mL Total Protein (6.3-8.2) g/dL Albumin (3.5-5.0) g/dL - EKG Data -: EKG Interpreted by Me EKG shows normal: sinus rhythm (EKG shows a normal sinus rhythm a 96 appear 140 QRS duration 74 QT since QTC 384/485 possible left atrial enlargement nonspecific anterior lateral changes) - Radiology Data Radiology results: report reviewed (I did review the imaging and report evidence of mild CHF.), image reviewed Critical Care Time Critical Care Time: Yes Critical Care Time: 31 minutes of critical care time which includes initial presentation with history physical labs x-rays several reevaluation patient responsive therapy discuss with the patient family regarding findings review of old charting was available discussed with Dr. Flannery documentation the above admission orders also. Disposition Clinical Impression: Systolic congestive heart failure, Acute exacerbation of chronic obstructive airways disease Disposition: ADMITTED IP TO THIS HOSP Condition: Fair Referrals: Carissa Castro MD [Primary Care Provider] - 1-2 days
[2019-05-11 16:14] LABS: Albumin 3.4 g/dL (3.5-5.0); Calcium 8.9 mg/dL (8.4-10.2); Magnesium 2.2 mg/dL (1.6-2.3); Potassium 4.6 mmol/L (3.5-5.1); Total Bilirubin 0.4 mg/dL (0.2-1.3); Total Protein 7.1 g/dL (6.3-8.2)
--- NOTE | 2019-05-11 17:04 | XR ---
EXAMINATION TYPE: XR chest 2V DATE OF EXAM: 05/11/2019 COMPARISON: 05/02/2019 HISTORY: Chest pain TECHNIQUE: Frontal and lateral views of the chest are obtained. FINDINGS: Heart appears slightly enlarged. There is slight coarsening of interstitial markings. Ther e is very minimal blunting of the costophrenic angles. Her chest leads. IMPRESSION: Cardiomegaly and mild congestion suggestive of minimal heart failure. Small pleural effu sions. No change.
[2019-05-11] MEDS ORDERED: NITROGLYCERIN SL TABS 0.4 MG TAB SUBLINGUAL PRN (18:18)
[2019-05-11] MEDS ORDERED: CYCLOBENZAPRINE 10 MG TAB PO PRN (18:18)
[2019-05-11] MEDS ORDERED: FUROSEMIDE 40 MG TAB PO PRN (18:18)
--- NOTE | 2019-05-11 18:21 | ED ---
Medical Decision Making - Lab Data Result diagrams: 05/11/19 15:49 05/11/19 15:49 Lab Results 05/11/19 05/11/19 05/11/19 Range/Units 15:49 15:49 15:49 WBC 6.4 (3.8-10.6) k/uL RBC 3.66 L (3.80-5.40) m/uL Hgb 11.1 L (11.4-16.0) gm/dL Hct 36.1 (34.0-46.0) % MCV 98.7 (80.0-100.0) fL MCH 30.3 (25.0-35.0) pg MCHC 30.7 L (31.0-37.0) g/dL RDW 15.4 (11.5-15.5) % Plt Count 307 (150-450) k/uL Neutrophils % 76 % Lymphocytes % 16 % Monocytes % 4 % Eosinophils % 3 % Basophils % 0 % Neutrophils # 4.8 (1.3-7.7) k/uL Lymphocytes # 1.0 (1.0-4.8) k/uL Monocytes # 0.3 (0-1.0) k/uL Eosinophils # 0.2 (0-0.7) k/uL Basophils # 0.0 (0-0.2) k/uL Hypochromasia Slight Macrocytosis Slight PT (9.0-12.0) sec INR (<1.2) APTT (22.0-30.0) sec Sodium 140 (137-145) mmol/L Potassium 4.6 (3.5-5.1) mmol/L Chloride 110 H (98-107) mmol/L Carbon Dioxide 23 (22-30) mmol/L Anion Gap 7 mmol/L BUN 18 H (7-17) mg/dL Creatinine 0.93 (0.52-1.04) mg/dL Est GFR (CKD-EPI)AfAm 84 (>60 ml/min/1.73 sqM) Est GFR (CKD-EPI)NonAf 72 (>60 ml/min/1.73 sqM) Glucose 63 L (74-99) mg/dL Calcium 8.9 (8.4-10.2) mg/dL Magnesium 2.2 (1.6-2.3) mg/dL Total Bilirubin 0.4 (0.2-1.3) mg/dL AST 54 H (14-36) U/L ALT 36 (9-52) U/L Alkaline Phosphatase 114 (38-126) U/L Troponin I (0.000-0.034) ng/mL NT-Pro-B Natriuret Pep 57066 pg/mL Total Protein 7.1 (6.3-8.2) g/dL Albumin 3.4 L (3.5-5.0) g/dL 05/11/19 05/11/19 Range/Units 15:49 15:49 WBC (3.8-10.6) k/uL RBC (3.80-5.40) m/uL Hgb (11.4-16.0) gm/dL Hct (34.0-46.0) % MCV (80.0-100.0) fL MCH (25.0-35.0) pg MCHC (31.0-37.0) g/dL RDW (11.5-15.5) % Plt Count (150-450) k/uL Neutrophils % % Lymphocytes % % Monocytes % % Eosinophils % % Basophils % % Neutrophils # (1.3-7.7) k/uL Lymphocytes # (1.0-4.8) k/uL Monocytes # (0-1.0) k/uL Eosinophils # (0-0.7) k/uL Basophils # (0-0.2) k/uL Hypochromasia Macrocytosis PT 10.2 (9.0-12.0) sec INR 0.9 (<1.2) APTT 23.5 (22.0-30.0) sec Sodium (137-145) mmol/L Potassium (3.5-5.1) mmol/L Chloride (98-107) mmol/L Carbon Dioxide (22-30) mmol/L Anion Gap mmol/L BUN (7-17) mg/dL Creatinine (0.52-1.04) mg/dL Est GFR (CKD-EPI)AfAm (>60 ml/min/1.73 sqM) Est GFR (CKD-EPI)NonAf (>60 ml/min/1.73 sqM) Glucose (74-99) mg/dL Calcium (8.4-10.2) mg/dL Magnesium (1.6-2.3) mg/dL Total Bilirubin (0.2-1.3) mg/dL AST (14-36) U/L ALT (9-52) U/L Alkaline Phosphatase (38-126) U/L Troponin I 0.014 (0.000-0.034) ng/mL NT-Pro-B Natriuret Pep pg/mL Total Protein (6.3-8.2) g/dL Albumin (3.5-5.0) g/dL Disposition Clinical Impression: Systolic congestive heart failure, Acute exacerbation of chronic obstructive airways disease, History of pulmonary embolism Disposition: ADMITTED IP TO THIS HOSP Condition: Fair Referrals: Carissa Castro MD [Primary Care Provider] - 1-2 days
[2019-05-11] MEDS ORDERED: IPRATROPIUM-ALBUTEROL 3 ML NEB INHALATION PRN (19:02)
[2019-05-11] MEDS: IPRATROPIUM-ALBUTEROL 3 ML NEB INHALATION SCH (19:07)
[2019-05-11] MEDS ORDERED: ACETAMINOPHEN TAB 500 MG TAB PO PRN (19:10)
[2019-05-11] MEDS ORDERED: TEMAZEPAM 15 MG CAP PO PRN (19:10)
--- NOTE | 2019-05-11 19:58 | HP ---
HISTORY AND PHYSICAL DATE OF SERVICE: 05/11/2019 CHIEF COMPLAINT: Shortness of breath. HISTORY OF PRESENT ILLNESS: This 48-year-old woman with a past medical history of multiple medical problems including CHF, history of CVA, TIA, history of asthma, DVT, history of DJD, pulmonary embolism, sticky platelet syndrome, cholecystectomy, left below-knee amputation, lower leg and right leg fasciotomy, being followed by Dr. Carissa Castro in the outpatient setting was complaining of shortness of breath. The patient also had cough and sputum. Patient came to [facility] and was admitted for further evaluation and treatment. Patient as mentioned the patient has multiple pulmonary issues also. The patient was recently admitted with toxic metabolic encephalopathy and CHF acute exacerbation. The most recent 2D echo which was done last month by Cardiology showed global hypokinesis, ejection fraction less than 20%. The patient admitted for further evaluation and treatment. There is no history of fever, rigors or chills. No history of headache, loss of consciousness or seizures. PAST MEDICAL HISTORY: Asthma, history of CHF, CVA, TIA, DVT, history of DJD, history of pulmonary embolism, renal disease, sticky platelet, history of ESBL E coli, cholecystectomy, anxiety and depression. MEDICATIONS: Home medications prior to admission include: 1. Lasix 40 mg daily p.r.n. 2. Carafate 1 g daily. 3. Nitrostat 0.4 mg p.r.n. 4. Zestril 5 mg b.i.d. 5. Dilaudid 8 mg p.o. daily. 6. Pepcid 20 mg daily. 7. Lovenox 40 mg subcu b.i.d. 8. Flexeril 10 mg t.i.d. p.r.n. 9. Plavix 75 mg p.o. daily. 10.Coreg 6.25 mg p.o. b.i.d. with meals. 11.ProAir 1 puff q.6h p.r.n. 12.Xanax 2 mg p.o. daily p.r.n. ALLERGIES: IBUPROFEN, TRAZODONE. FAMILY HISTORY: Family history of multiple sclerosis, legal blindness and cataracts. SOCIAL HISTORY: Previous history of smoking. No history of alcohol intake. REVIEW OF SYSTEMS: ENT diminished vision. Diminished hearing. CARDIOVASCULAR: As mentioned earlier. RESPIRATORY: As mentioned earlier. GI no nausea or vomiting. no dysuria. NERVOUS SYSTEM: No numbness or weakness. ALLERGY/IMMUNOLOGY: No asthma or hayfever. MUSCULOSKELETAL: As mentioned earlier. HEMATOLOGY/ONCOLOGY: As mentioned earlier. ENDOCRINE: No history of diabetes or hypothyroidism. CONSTITUTIONAL: As mentioned earlier. DERMATOLOGY: Negative. RHEUMATOLOGY: Negative. PSYCHIATRIC: As mentioned earlier. PHYSICAL EXAMINATION: Alert and oriented times three. Pulse is 93, blood pressure 140/81, respiration 18, temperature 98.2. Pulse ox 100 percent on 2 L. HEENT: Conjunctivae normal. Oral mucosa moist. Neck is jugular venous distention at the root of the neck. CARDIOVASCULAR SYSTEM: S1, S2. No S3. Ejection systolic murmur. RESPIRATORY: Breath sounds diminished in the bases. Bilateral scattered rhonchi and crackles. Expiratory wheezing also present. ABDOMEN: Soft, obese, nontender. LEGS: Minimal leg edema present. Otherwise left BKA, right leg amputation. NERVOUS SYSTEM: Higher functions as mentioned earlier, moves all 4 limbs. No focal motor or sensory deficits. LYMPHATICS: No lymph nodes palpable in the neck, axilla or groin. SKIN is no ulcer, rash or bleeding. JOINTS no active deforming arthropathy. LAB STUDIES: WBC 6.2, hemoglobin 11.1 and glucose 63. The chest x-ray which was personally reviewed by me showed evidence of cardiomegaly and some CHF. NT proBNP is 23. ASSESSMENT: 1. Shortness of breath possibly multifactorial mostly chronic obstructive pulmonary disease acute exacerbation with acute purulent tracheobronchitis and as well as congestive heart failure acute exacerbation with acute on chronic systolic dysfunction ejection fraction less than 20%. 2. Nonischemic cardiomyopathy. 3. BNP elevated up to 28,300. 4. Anemia, normocytic anemia of chronic disease. 5. History of asthma. 6. History of congestive heart failure. 7. Cerebrovascular accident/transient ischemic attack. 8. History of deep vein thrombosis. 9. History of degenerative joint disease. 10.History of pulmonary embolism. 11.History of bilateral leg amputations. 12.History of renal disease. 13.History of sticky platelet syndrome. 14.History of bronchitis. 15.History of ESBL. 16.History of cholecystectomy. 17.History of anxiety, depression. 18.Remote history of nicotine dependence. 19.Right above knee amputation and left below knee amputation. RECOMMENDATIONS AND DISCUSSION: This 48-year-old woman presented with multiple complex medical issues, we will monitor the patient closely, continue the current medications, management and symptomatic treatment. We will initiate IV diuretics, cardiology consultation, monitor fluid and electrolytes balance closely. I would also recommend intensive bronchodilators. Also recommend empiric antibiotics. Resume the home medications. DVT prophylaxis. Prognosis guarded because of multiple complex medical issues. Further recommendations to follow. A copy of dictation being forwarded to Dr. Carissa Castro who is the primary physician. See orders for details. Discussed with the patient's family who understands and agrees. MMODL / IJN: [id number] /
[2019-05-11] MEDS ORDERED: IPRATROPIUM-ALBUTEROL 3 ML NEB INHALATION SCH (20:00)
[2019-05-11] MEDS: BUDESONIDE 1 MG/2 ML NEBU INHALATION SCH (20:25)
[2019-05-11] MEDS: FORMOTEROL FUMARATE 20 MCG/2 ML NEBU INHALATION SCH (20:25)
[2019-05-11 21:03] LABS: Glucose,Whole Blood 344 mg/dL (75-99)
[2019-05-11] MEDS: methylPREDNISolone SOD SUCCI 125 MG/2 ML VIAL IV SCH (21:41)
[2019-05-11] MEDS: HYDROmorphone 4 MG TABLET PO SCH (21:42)
[2019-05-11] MEDS: INSULIN ASPART (NovoLOG) 100 UNIT/ML VIAL SQ SCH (21:47)
[2019-05-11] MEDS: ENOXAPARIN 40 MG/0.4 ML SYRINGE SQ SCH (21:48)
[2019-05-11] MEDS: FUROSEMIDE 10 MG/ML 4 ML VIAL IV SCH (21:48)
[2019-05-11] MEDS: ALPRAZolam 1 MG TAB PO PRN (21:52)
[2019-05-12] MEDS: methylPREDNISolone SOD SUCCI 125 MG/2 ML VIAL IV SCH ×5 (00:03→22:53)
[2019-05-12] MEDS: FUROSEMIDE 10 MG/ML 4 ML VIAL IV SCH ×3 (04:42→20:53)
[2019-05-12] MEDS: CARVEDILOL 6.25 MG TAB PO SCH ×2 (04:42→17:54)
[2019-05-12] MEDS: PANTOPRAZOLE 40 MG TABLET PO SCH (04:42)
[2019-05-12 05:53] LABS: Glucose,Whole Blood 70 mg/dL (75-99)
[2019-05-12] MEDS: INSULIN ASPART (NovoLOG) 100 UNIT/ML VIAL SQ SCH ×4 (06:00→21:13)
[2019-05-12 06:57] LABS: Calcium 8.6 mg/dL (8.4-10.2); Potassium 4.4 mmol/L (3.5-5.1)
[2019-05-12 07:52] LABS: Basophils % (A) 0 %; Eosinophils # (A) 0.1 k/uL (0-0.7); Eosinophils % (A) 2 %; HCT 32.5 % (34.0-46.0); Hypochromasia Marked; Lymphocytes # (A) 1.1 k/uL (1.0-4.8); Lymphocytes % (A) 20 %; MCH 29.6 pg (25.0-35.0); MCHC 29.4 g/dL (31.0-37.0); MCV 100.6 fL (80.0-100.0); Macrocytosis Slight; Monocytes # (A) 0.3 k/uL (0-1.0); Monocytes % (A) 5 %; Neutrophils % (A) 73 %; Platelet Count 282 k/uL (150-450); RBC 3.23 m/uL (3.80-5.40); RDW 15.5 % (11.5-15.5); WBC 5.5 k/uL (3.8-10.6)
[2019-05-12 07:59] LABS: HGB 9.5 gm/dL (11.4-16.0)
[2019-05-12] MEDS: HYDROmorphone 4 MG TABLET PO SCH ×3 (08:00→21:13)
[2019-05-12] MEDS: ENOXAPARIN 40 MG/0.4 ML SYRINGE SQ SCH ×2 (08:00→20:53)
[2019-05-12] MEDS: CLOPIDOGREL 75 MG TAB PO SCH (08:00)
[2019-05-12] MEDS: FAMOTIDINE 20 MG TAB PO SCH ×2 (08:01→17:54)
[2019-05-12] MEDS: LISINOPRIL 5 MG TAB PO SCH (08:01)
[2019-05-12] MEDS: SUCRALFATE 1 GM TAB PO SCH (08:02)
[2019-05-12] MEDS: FORMOTEROL FUMARATE 20 MCG/2 ML NEBU INHALATION SCH ×2 (09:05→19:39)
[2019-05-12] MEDS: IPRATROPIUM-ALBUTEROL 3 ML NEB INHALATION SCH ×4 (09:05→19:40)
[2019-05-12] MEDS: BUDESONIDE 1 MG/2 ML NEBU INHALATION SCH ×2 (09:05→19:39)
--- NOTE | 2019-05-12 09:39 | P.CRDCN ---
History of Present Illness Consult date: 05/12/19 Requesting physician: Misty Flannery Reason for Consult (text): exacerbation CHF Chief complaint: shortness of breath History of present illness: This is a pleasant 48-year-old -[place] female patient who follows with Dr. Gaona in the office. 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 Was recently admitted the end of last month with acute on chronic systolic congestive heart failure at which time she was diuresed with IV Lasix. Prior to that she was at [facility] and was diagnosed with a recurrent PE and DVT and is currently being maintained on Lovenox. Presented from her primary care physician's office to the emergency department due to sudden worsening shortness of breath as well as transient vision loss lasting about a minute and complaints of edema in her left lower extremity. Chest x-ray showed cardiomegaly and mild congestion suggestive of minimal heart failure, small pleural effusions, no change from previous. Laboratory values on admission showed a white count of 6000, hemoglobin 11.1, BUN 18, creatinine 0.93. NT p roBNP is elevated at 28,000 but appears to be trending downward and troponin 1 was negative. EKG showed sinus rhythm with heart rate of 96 bpm with no acute ST-T wave abnormalities. Upon examination, patient is resting comfortable in bed. She feels that her breathing has improved somewhat. She's had no further episodes of transient vision loss. She is currently on Lasix IV 40 mg every 8 hours, Pulmicort, Rocephin, and Solu-Medrol. Past Medical History Past Medical History: Asthma, Heart Failure, CVA/TIA, Deep Vein Thrombosis (DVT), Osteoarthritis (OA), Pulmonary Embolus (PE), Renal Disease Additional Past Medical History / Comment(s): sticky platelet syndrome, bronchitis, anx/depression, falls renal failure History of Any Multi-Drug Resistant Organisms: ESBL Date of last positivie culture/infection: 10/15/18 ESBL MDRO Source:: Urine Past Surgical History: Cholecystectomy Additional Past Surgical History / Comment(s): ltBKA, left lower leg, aortic bypass right leg, right leg fasciotomy.pt stated had another vascular sx after the fasciotomy at [facility] unclear as to exactly what was done Rt AKA Past Anesthesia/Blood Transfusion Reactions: No Reported Reaction Additional Past Anesthesia/Blood Transfusion Reaction / Comment(s): pt stated has had a blood transfusion in past-no reaction. Past Psychological History: Anxiety, Depression Additional Psychological History / Comment(s): Is cared for by her mother in her own private residence, denies depression at this time. That a current tobacco smoker. No animal exposures Smoking Status: Former smoker Past Alcohol Use History: None Reported Additional Past Alcohol Use History / Comment(s): started smoking at age 22; quit 2018 was smoking 1/2ppd. Past Drug Use History: None Reported - Past Family History Mother History Unknown: Yes Additional Family Medical History / Comment(s): MS, legally blind, cataracts Father Family Medical History: No Reported History Additional Family Medical History / Comment(s): Was younger when he , car accident Medications and Allergies Home Medications Medication Instructions Recorded Confirmed Type Clopidogrel Bisulfate [Plavix] 75 mg PO DAILY 12/06/18 05/11/19 History Cyclobenzaprine [Flexeril] 10 mg PO TID PRN 12/27/18 05/11/19 History Nitroglycerin Sl Tabs [Nitrostat] 0.4 mg SUBLINGUAL Q5M PRN tab 12/28/18 05/11/19 Rx Famotidine [Pepcid] 20 mg PO DAILY #20 tab 03/11/19 05/11/19 Rx Albuterol Sulfate [Proair Hfa] 1 puff INHALATION RT-Q6H PRN 04/09/19 05/11/19 History Carvedilol [Coreg] 6.25 mg PO BID-W/MEALS #60 tab 04/12/19 05/11/19 Rx Lisinopril [Zestril] 5 mg PO DAILY #30 tab 04/12/19 05/11/19 Rx ALPRAZolam [Xanax] 2 mg PO DAILY PRN 05/01/19 05/11/19 History Enoxaparin [Lovenox] 40 mg SQ BID 05/01/19 05/11/19 History HYDROmorphone HCL [Dilaudid] 8 mg PO TID 05/01/19 05/11/19 History Sucralfate [Carafate] 1 gram PO DAILY 05/01/19 05/11/19 History Furosemide [Lasix] 40 mg PO DAILY PRN 05/11/19 05/11/19 History Allergies Allergy/AdvReac Type Severity Reaction Status Date / Time ibuprofen Allergy Unknown Verified 05/11/19 16:09 trazodone Allergy Chest Pain Verified 05/11/19 16:09 Physical Exam Vitals: Vital Signs Temp Pulse Pulse Resp BP BP Pulse Ox 05/12/19 09:16 96 05/12/19 09:15 96 05/12/19 09:07 96 05/12/19 08:14 98.7 F 93 16 133/83 100 05/12/19 03:47 98.2 F 90 16 138/72 99 05/12/19 00:00 98.1 F 100 18 141/70 99 05/11/19 20:00 105 H 20 05/11/19 19:05 100 05/11/19 18:58 96 05/11/19 18:34 98.4 F 105 H 20 135/68 97 05/11/19 18:24 98.3 F 93 18 145/81 100 05/11/19 17:16 98.6 F 97 18 122/89 100 05/11/19 16:09 110 H 05/11/19 15:59 100 05/11/19 15:28 98.8 F 103 H 18 143/104 100 Intake and Output 05/11/19 05/12/19 05/12/19 22:59 06:59 14:59 Intake Total 220 Balance 220 Intake: Intake, IV Titration 100 Amount cefTRIAXone 1 gm In 100 Sodium Chloride 0.9% 50 ml @ 100 mls/hr IVPB Q24H [facility] Rx#:[id number] Oral 120 Other: # Voids 1 Weight 40.823 kg 46.5 kg PHYSICAL EXAMINATION: HEENT: Head is atraumatic, normocephalic. Pupils equal, round. Neck is supple. There is no elevated jugular venous pressure. HEART EXAMINATION: Heart sounds regular, S1 and S2 normal. No murmur or gallop heard. CHEST EXAMINATION: Lungs reveal diminished air entry bilaterally and crackles to bilateral lower lobes right greater than left. No chest wall tenderness is noted on palpation or with deep breathing. ABDOMEN: Soft, nontender. Bowel sounds are heard. No organomegaly noted. EXTREMITIES: Right AKA and left BKA noted. NEUROLOGIC patient is awake, alert and oriented x3. . Results 05/12/19 06:05 05/12/19 06:05 Cardiac Enzymes 05/11/19 05/11/19 Range/Units 15:49 15:49 AST 54 H (14-36) U/L Troponin I 0.014 (0.000-0.034) ng/mL Coagulation 05/11/19 Range/Units 15:49 PT 10.2 (9.0-12.0) sec APTT 23.5 (22.0-30.0) sec CBC 05/11/19 05/12/19 Range/Units 15:49 06:05 WBC 6.4 5.5 (3.8-10.6) k/uL RBC 3.66 L 3.23 L (3.80-5.40) m/uL Hgb 11.1 L 9.5 L D (11.4-16.0) gm/dL Hct 36.1 32.5 L (34.0-46.0) % Plt Count 307 282 (150-450) k/uL Comprehensive Metabolic Panel 05/11/19 05/12/19 Range/Units 15:49 06:05 Sodium 140 137 (137-145) mmol/L Potassium 4.6 4.4 (3.5-5.1) mmol/L Chloride 110 H 108 H (98-107) mmol/L Carbon Dioxide 23 21 L (22-30) mmol/L BUN 18 H 19 H (7-17) mg/dL Creatinine 0.93 0.98 (0.52-1.04) mg/dL Glucose 63 L 65 L (74-99) mg/dL Calcium 8.9 8.6 (8.4-10.2) mg/dL AST 54 H (14-36) U/L ALT 36 (9-52) U/L Alkaline Phosphatase 114 (38-126) U/L Total Protein 7.1 (6.3-8.2) g/dL Albumin 3.4 L (3.5-5.0) g/dL Current Medications Generic Name Dose Route Start Last Admin Trade Name Freq PRN Reason Stop Dose Admin Acetaminophen 500 mg 05/11/19 19:10 Tylenol Tab PO Q6HR PRN Fever and/ or Mild Pain Albuterol/Ipratropium 3 ml 05/11/19 20:00 05/12/19 09:05 Duoneb 0.5 Mg-3 Mg/3 Ml Soln INHALATION 3 ml RT-QID DEIRDRE Administration Albuterol/Ipratropium 3 ml 05/11/19 19:02 Duoneb 0.5 Mg-3 Mg/3 Ml Soln INHALATION RT-Q2H PRN Shortness Of Breath Or Wheezing Alprazolam 2 mg 05/11/19 18:18 05/11/19 21:52 Xanax PO 2 mg DAILY PRN Administration Anxiety Budesonide 1 mg 05/11/19 20:00 05/12/19 09:05 Pulmicort INHALATION 1 mg RT-BID DEIRDRE Administration Carvedilol 6.25 mg 05/12/19 07:30 05/12/19 04:42 Coreg PO 6.25 mg BID-W/MEALS DEIRDRE Administration Clopidogrel Bisulfate 75 mg 05/12/19 09:00 05/12/19 08:00 Plavix PO 75 mg DAILY DEIRDRE Administration Cyclobenzaprine HCl 10 mg 05/11/19 18:18 Flexeril PO TID PRN Muscle Spasm Enoxaparin Sodium 40 mg 05/11/19 21:00 05/12/19 08:00 Lovenox SQ 40 mg BID DEIRDRE Administration Famotidine 20 mg 05/12/19 09:00 05/12/19 08:01 Pepcid PO Not Given DAILY DEIRDRE Formoterol Fumarate 20 mcg 05/11/19 20:00 05/12/19 09:05 Perforomist INHALATION 20 mcg RT-BID DEIRDRE Administration Furosemide 40 mg 05/11/19 20:00 05/12/19 04:42 Lasix IV 40 mg Q8H DEIRDRE Administration Furosemide 40 mg 05/11/19 18:18 Lasix PO DAILY PRN SWELLING Hydromorphone HCl 8 mg 05/11/19 22:00 05/12/19 08:00 Dilaudid PO 8 mg TID DEIRDRE Administration Ceftriaxone Sodium 1 gm/ 50 mls @ 100 mls/hr 05/11/19 20:00 05/11/19 21:58 Sodium Chloride IVPB 100 mls/hr Q24H DEIRDRE Administration Insulin Aspart 0 unit 05/11/19 21:00 05/12/19 06:00 Novolog SQ Not Given ACHS [facility] Protocol Lisinopril 5 mg 05/12/19 09:00 05/12/19 08:01 Zestril PO 5 mg DAILY DEIRDRE Administration Methylprednisolone Sodium Succinate 60 mg 05/11/19 19:15 05/12/19 04:43 Solu-Medrol IV 60 mg Q6HR DEIRDRE Administration Nitroglycerin 0.4 mg 05/11/19 18:18 Nitrostat SUBLINGUAL Q5M PRN Chest Pain Pantoprazole Sodium 40 mg 05/12/19 07:30 05/12/19 04:42 Protonix PO 40 mg AC-BRKFST DEIRDRE Administration Sucralfate 1 gm 05/12/19 09:00 05/12/19 08:02 Carafate PO Not Given DAILY DEIRDRE Temazepam 15 mg 05/11/19 19:10 Restoril PO HS PRN Insomnia Intake and Output 05/11/19 05/12/19 05/12/19 22:59 06:59 14:59 Intake Total 220 Balance 220 Intake: Intake, IV Titration 100 Amount cefTRIAXone 1 gm In 100 Sodium Chloride 0.9% 50 ml @ 100 mls/hr IVPB Q24H DE[facility]RE Rx#:[id number] Oral 120 Other: # Voids 1 Weight 40.823 kg 46.5 kg 05/12/19 06:05 05/12/19 06:05 Assessment and Plan Assessment: #1 chronic systolic congestive heart failure #2 COPD exacerbation #3 sticky platelet syndrome #4 nonischemic cardiomyopathy with ejection fraction less than 20% #5 recurrent PEs and DVTs #6 history of right AKA and left BKA Plan: From cardiology's perspective, we will continue IV Lasix for now. We will likely switch her to oral Lasix in the morning. Monitor daily weights, renal function, electrolytes and intake and output. Further recommendations to follow. B[employer]IST[employer] TE[employer]ER note has been reviewed, I agree with a documented findings and plan of care. Patient was seen and examined.
[2019-05-12 11:07] VITALS: BMI 18.1
[2019-05-12 12:06] LABS: Glucose,Whole Blood 364 mg/dL (75-99)
--- NOTE | 2019-05-12 12:31 | P.NPCON ---
History of Present Illness - Reason for Consult Consult date: 05/12/19 (Patient known to Dr. Handley) - Chief Complaint Shortness of breath - History of Present Illness Patient known to Dr. Handley for chronic kidney disease with baseline creatinine of 0.8-0.9 MG per DL. She has history of cardiomyopathy with the EF of 20%. Coming to the hospital with shortness of breath. Currently on Lasix 40 mg IV 3 times a day. Used to take Lasix 40 mg orally at home. Denies noncompliance. No nausea vomiting diarrhea. Sitting comfortably. Getting currently at baseline. Review of Systems Constitutional: Reports as per HPI Past Medical History Past Medical History: Asthma, Heart Failure, CVA/TIA, Deep Vein Thrombosis (DVT), Osteoarthritis (OA), Pulmonary Embolus (PE), Renal Disease Additional Past Medical History / Comment(s): sticky platelet syndrome, bronchit is, anx/depression, falls renal failure History of Any Multi-Drug Resistant Organisms: ESBL Date of last positivie culture/infection: 10/15/18 ESBL MDRO Source:: Urine Past Surgical History: Cholecystectomy Additional Past Surgical History / Comment(s): ltBKA, left lower leg, aortic bypass right leg, right leg fasciotomy.pt stated had another vascular sx after the fasciotomy at [facility] unclear as to exactly what was done Rt AKA Past Anesthesia/Blood Transfusion Reactions: No Reported Reaction Additional Past Anesthesia/Blood Transfusion Reaction / Comment(s): pt stated has had a blood transfusion in past-no reaction. Past Psychological History: Anxiety, Depression Additional Psychological History / Comment(s): Is cared for by her mother in her own private residence, denies depression at this time. That a current tobacco smoker. No animal exposures Smoking Status: Former smoker Past Alcohol Use History: None Reported Additional Past Alcohol Use History / Comment(s): started smoking at age 22; quit 2018 was smoking 1/2ppd. Past Drug Use History: None Reported - Past Family History Mother History Unknown: Yes Additional Family Medical History / Comment(s): MS, legally blind, cataracts Father Family Medical History: No Reported History Additional Family Medical History / Comment(s): Was younger when he , car accident Medications and Allergies Home Medications Medication Instructions Recorded Confirmed Type Clopidogrel Bisulfate [Plavix] 75 mg PO DAILY 12/06/18 05/11/19 History Cyclobenzaprine [Flexeril] 10 mg PO TID PRN 12/27/18 05/11/19 History Nitroglycerin Sl Tabs [Nitrostat] 0.4 mg SUBLINGUAL Q5M PRN tab 12/28/18 05/11/19 Rx Famotidine [Pepcid] 20 mg PO DAILY #20 tab 03/11/19 05/11/19 Rx Albuterol Sulfate [Proair Hfa] 1 puff INHALATION RT-Q6H PRN 04/09/19 05/11/19 History Carvedilol [Coreg] 6.25 mg PO BID-W/MEALS #60 tab 04/12/19 05/11/19 Rx Lisinopril [Zestril] 5 mg PO DAILY #30 tab 04/12/19 05/11/19 Rx ALPRAZolam [Xanax] 2 mg PO DAILY PRN 05/01/19 05/11/19 History Enoxaparin [Lovenox] 40 mg SQ BID 05/01/19 05/11/19 History HYDROmorphone HCL [Dilaudid] 8 mg PO TID 05/01/19 05/11/19 History Sucralfate [Carafate] 1 gram PO DAILY 05/01/19 05/11/19 History Furosemide [Lasix] 40 mg PO DAILY PRN 05/11/19 05/11/19 History Allergies Allergy/AdvReac Type Severity Reaction Status Date / Time ibuprofen Allergy Unknown Verified 05/11/19 16:09 trazodone Allergy Chest Pain Verified 05/11/19 16:09 Physical Exam Vitals: Vital Signs Temp Pulse Pulse Resp BP BP Pulse Ox 05/12/19 12:12 100 05/12/19 12:00 92 05/12/19 09:25 100 05/12/19 09:16 96 05/12/19 09:15 96 05/12/19 09:07 96 05/12/19 08:14 98.7 F 93 16 133/83 100 05/12/19 03:47 98.2 F 90 16 138/72 99 05/12/19 00:00 98.1 F 100 18 141/70 99 05/11/19 20:00 105 H 20 05/11/19 19:05 100 05/11/19 18:58 96 05/11/19 18:34 98.4 F 105 H 20 135/68 97 05/11/19 18:24 98.3 F 93 18 145/81 100 05/11/19 17:16 98.6 F 97 18 122/89 100 05/11/19 16:09 110 H 05/11/19 15:59 100 05/11/19 15:28 98.8 F 103 H 18 143/104 100 Intake and Output 05/11/19 05/12/19 05/12/19 22:59 06:59 14:59 Intake Total 220 480 Balance 220 480 Intake: Intake, IV Titration 100 Amount cefTRIAXone 1 gm In 100 Sodium Chloride 0.9% 50 ml @ 100 mls/hr IVPB Q24H [facility] Rx#:[id number] Oral 120 480 Other: # Voids 1 1 # Bowel Movements 0 Weight 40.823 kg 46.5 kg 46.5 kg No acute distress S1-S2 heard Decreased breath sounds bilaterally Trace edema Results - Lab Results Most recent lab results Calcium 8.6 mg/dL (8.4-10.2) 05/12/19 06:05 Magnesium 2.2 mg/dL (1.6-2.3) 05/11/19 15:49 05/12/19 06:05 05/12/19 06:05 Assessment and Plan Assessment: #1 shortness of breath secondary to cardiogenic pulmonary edema. #2 CHF with systolic dysfunction EF of 20% #3 CKD stage II creatinine currently at baseline Baseline 0.8-0.9 MG per DL. #4 metabolic acidosis #5 hypertension with chronic kidney disease Plan: #1 creatinine currently at baseline. Continue diuretics monitor renal function closely. #2 check urine analysis #3 avoid nephrotoxic agents and hypotensive episodes. Given very much for this consultation we'll follow along while she is in the hospital
[2019-05-12] MEDS ORDERED: KETOROLAC 30 MG/ML 1 ML VIAL IVP SCH (12:45)
[2019-05-12] MEDS ORDERED: ONDANSETRON 4 MG/2 ML VIAL IVP PRN (12:49)
--- NOTE | 2019-05-12 14:01 | P.CNPUL ---
History of Present Illness Consult date: 05/12/19 Reason for consult: dyspnea History of present illness: 48-year-old female patient was hospitalized for worsening shortness of breath. She is known to have congestion heart failure with an ejection fraction of less than 20%. She is known to have chronic hypercoagulability with sticky platelet syndrome and the patient has been initially maintained on Xarelto and she feels Xarelto due to recurrent events and subsequently she was switched to Lovenox injections as the patient has previous history of recurrent DVT and pulmonary embolism. She has peripheral vascular disease and she has below-knee amputation on the left and above-knee amputation on the right. She has also other comorbidities including chronic pain, chronic anxiety, chronic depression. No clear-cut history of COPD. The patient's x-ray is consistent with pulmonary edema. The patient's BNP levels was elevated and the patient will be started on IV Lasix for now. She is already feeling better for now. Review of Systems Constitutional: Reports lethargy, Reports weakness, Reports weight loss Eyes: denies blurred vision, denies bulging eye, denies decreased vision Ears: deny: decreased hearing, ear discharge, earache, tinnitus Ears, nose, mouth and throat: Denies headache, Denies sore throat Cardiovascular: Reports decreased exercise tolerance, Reports dyspnea on exertion, Reports shortness of breath Respiratory: Reports dyspnea Gastrointestinal: Reports as per HPI Genitourinary: Reports as per HPI Musculoskeletal: Reports as per HPI (Patient has bilateral amputation below the knee on the left [id number] on the right) Musculoskeletal: absent: as per HPI (The patient has amputations bilaterally. No significant edema in the upper thighs.) Integumentary: Denies pruritus, Denies rash Neurological: Reports as per HPI Psychiatric: Reports as per HPI Endocrine: Reports as per HPI Hematologic/Lymphatic: Reports as per HPI Allergic/Immunologic: Reports as per HPI Past Medical History Past Medical History: Asthma, Heart Failure, CVA/TIA, Deep Vein Thrombosis (DVT), Osteoarthritis (OA), Pulmonary Embolus (PE), Renal Disease Additional Past Medical History / Comment(s): sticky platelet syndrome, bronchitis, anx/depression, falls renal failure History of Any Multi-Drug Resistant Organisms: ESBL Date of last positivie culture/infection: 10/15/18 ESBL MDRO Source:: Urine Past Surgical History: Cholecystectomy Additional Past Surgical History / Comment(s): ltBKA, left lower leg, aortic bypass right leg, right leg fasciotomy.pt stated had another vascular sx after the fasciotomy at [facility] unclear as to exactly what was done Rt AKA Past Anesthesia/Blood Transfusion Reactions: No Reported Reaction Additional Past Anesthesia/Blood Transfusion Reaction / Comment(s): pt stated has had a blood transfusion in past-no reaction. Past Psychological History: Anxiety, Depression Additional Psychological History / Comment(s): Is cared for by her mother in her own private residence, denies depression at this time. That a current tobacco smoker. No animal exposures Smoking Status: Former smoker Past Alcohol Use History: None Reported Additional Past Alcohol Use History / Comment(s): started smoking at age 22; quit 2018 was smoking 1/2ppd. Past Drug Use History: None Reported - Past Family History Mother History Unknown: Yes Additional Family Medical History / Comment(s): MS, legally blind, cataracts Father Family Medical History: No Reported History Additional Family Medical History / Comment(s): Was younger when he , car accident Medications and Allergies Home Medications Medication Instructions Recorded Confirmed Type Clopidogrel Bisulfate [Plavix] 75 mg PO DAILY 12/06/18 05/11/19 History Cyclobenzaprine [Flexeril] 10 mg PO TID PRN 12/27/18 05/11/19 History Nitroglycerin Sl Tabs [Nitrostat] 0.4 mg SUBLINGUAL Q5M PRN tab 12/28/18 05/11/19 Rx Famotidine [Pepcid] 20 mg PO DAILY #20 tab 03/11/19 05/11/19 Rx Albuterol Sulfate [Proair Hfa] 1 puff INHALATION RT-Q6H PRN 04/09/19 05/11/19 History Carvedilol [Coreg] 6.25 mg PO BID-W/MEALS #60 tab 04/12/19 05/11/19 Rx Lisinopril [Zestril] 5 mg PO DAILY #30 tab 04/12/19 05/11/19 Rx ALPRAZolam [Xanax] 2 mg PO DAILY PRN 05/01/19 05/11/19 History Enoxaparin [Lovenox] 40 mg SQ BID 05/01/19 05/11/19 History HYDROmorphone HCL [Dilaudid] 8 mg PO TID 05/01/19 05/11/19 History Sucralfate [Carafate] 1 gram PO DAILY 05/01/19 05/11/19 History Furosemide [Lasix] 40 mg PO DAILY PRN 05/11/19 05/11/19 History Allergies Allergy/AdvReac Type Severity Reaction Status Date / Time ibuprofen Allergy Unknown Verified 05/11/19 16:09 trazodone Allergy Chest Pain Verified 05/11/19 16:09 Physical Exam Vitals: Vital Signs Temp Pulse Pulse Resp BP BP Pulse Ox 05/12/19 12:12 100 05/12/19 12:00 92 05/12/19 09:25 100 05/12/19 09:16 96 05/12/19 09:15 96 05/12/19 09:07 96 05/12/19 08:14 98.7 F 93 16 133/83 100 05/12/19 03:47 98.2 F 90 16 138/72 99 05/12/19 00:00 98.1 F 100 18 141/70 99 05/11/19 20:00 105 H 20 05/11/19 19:05 100 05/11/19 18:58 96 05/11/19 18:34 98.4 F 105 H 20 135/68 97 05/11/19 18:24 98.3 F 93 18 145/81 100 05/11/19 17:16 98.6 F 97 18 122/89 100 05/11/19 16:09 110 H 05/11/19 15:59 100 05/11/19 15:28 98.8 F 103 H 18 143/104 100 Intake and Output 05/11/19 05/12/19 05/12/19 22:59 06:59 14:59 Intake Total 220 480 Balance 220 480 Intake: Intake, IV Titration 100 Amount cefTRIAXone 1 gm In 100 Sodium Chloride 0.9% 50 ml @ 100 mls/hr IVPB Q24H [facility] Rx#:[id number] Oral 120 480 Other: # Voids 1 1 # Bowel Movements 0 Weight 40.823 kg 46.5 kg 46.5 kg Gen. appearance, comfortable likely distress Head exam was generally normal. There was no scleral icterus or corneal arcus. Mucous membranes were moist. Neck was supple and with jugular venous distension, thyromegaly, or carotid bruits. Carotids were easily palpable bilaterally. There was no adenopathy. Patient has some mild JVDs no goiter or neck masses this point in time. Lungs diminished breath sound bilaterally along with some limited bibasilar crackles. Cardiac exam revealed the PMI to be normally situated and sized. The rhythm was regular and no extrasystoles were noted during several minutes of auscultation. The first and second heart sounds were normal and physiologic splitting of the second heart sound was noted. There were no murmurs, rubs, clicks, or gallops. Abdominal exam revealed normal bowel sounds. The abdomen was soft, non-tender, and without masses, organomegaly, or appreciable enlargement of the abdominal aorta. Extremities revealed pneumonia dictation on the left [id number] and station of the right nose significant edema in the upper thighs Neurologically the patient is awake and alert and is no focal neurological deficits. Results - Laboratory Findings CBC and BMP: 05/12/19 06:05 05/12/19 06:05 PT/INR, D-dimer PT 10.2 sec (9.0-12.0) 05/11/19 15:49 INR 0.9 (<1.2) 05/11/19 15:49 Abnormal lab findings: Abnormal Labs 05/11/19 05/11/19 05/11/19 15:49 15:49 21:02 RBC 3.66 L Hgb 11.1 L Hct MCV MCHC 30.7 L Chloride 110 H Carbon Dioxide BUN 18 H Glucose 63 L POC Glucose (mg/dL) 344 H AST 54 H Albumin 3.4 L 05/12/19 05/12/19 05/12/19 05:52 06:05 06:05 RBC 3.23 L Hgb 9.5 L D Hct 32.5 L MCV 100.6 H MCHC 29.4 L Chloride 108 H Carbon Dioxide 21 L BUN 19 H Glucose 65 L POC Glucose (mg/dL) 70 L AST Albumin 05/12/19 12:05 RBC Hgb Hct MCV MCHC Chloride Carbon Dioxide BUN Glucose POC Glucose (mg/dL) 364 H AST Albumin - Diagnostic Findings Chest x-ray: image reviewed Assessment and Plan Plan: 1 chronic systolic heart failure with ejection fraction of less than 20% 2 acute on chronic shortness of breath with acute hypoxic respiratory failure secondary to decompensated heart failure and pulmonary edema, 3 chronic hypercoagulability 4 sticky platelet syndrome maintained on Lovenox injections on outpatient basis 5 recurrent history of DVT and pulmonary embolism maintained on anticoagulation with Lovenox 6 severe peripheral vascular disease with below-knee amputation on the left [id number] position of the right 7 chronic anemia 8 on it pain syndrome maintained on Dilaudid on outpatient basis 9 chronic anxiety 10 chronic depression Plan The presentation is typical for CHF. Continue daily Lasix. This continued IV Solu Medrol. Rest of the cardiac medication will be ordered resume. Her bronchodilators. Agree on the rest of the plan. Cardiology is to follow. Continue Lovenox for now at therapeutic doses regarding her history of recurrent DVT and pulmonary embolism.
[2019-05-12 15:17] LABS: Appearance,Urine Clear (Clear); Bilirubin,Urine Negative (Negative); Blood,Urine Negative (Negative); Color,Urine Colorless; Glucose,Urine (UA) Negative (Negative); Ketones,Urine Negative (Negative); Leukocyte Esterase,Urine Negative (Negative); Nitrite,Urine Negative (Negative); Protein,Urine Negative (Negative); Specific Gravity,Urine 1.004 (1.001-1.035); Urobilinogen,Urine <2.0 mg/dL (<2.0)
[2019-05-12 15:28] LABS: Amphetamine Screen,Urine Not Detected (NotDetected); Barbiturate Screen,Urine Not Detected (NotDetected); Benzodiazepines Screen,Urine Detected (NotDetected); Cocaine Screen,Urine Not Detected (NotDetected); Methadone Screen, Urine Not Detected (NotDetected); Opiate Screen,Urine Detected (NotDetected); Oxycodone Screen, Urine Not Detected (NotDetected); Phencyclidine Screen,Urine Not Detected (NotDetected); Tricyclic Antidepressant,Urine Not Detected (NotDetected); Urn Cannabinoid Scrn Not Detected (NotDetected)
[2019-05-12 17:02] LABS: Glucose,Whole Blood 122 mg/dL (75-99)
[2019-05-12] MEDS: HYDROcodone/APAP 5-325MG 1 EACH TAB PO PRN (17:55)
--- NOTE | 2019-05-12 19:52 | PN ---
PROGRESS NOTE DATE OF SERVICE: 05/12/2019 This 48-year-old woman was admitted with shortness of breath, had COPD exacerbation. Patient also history of nonischemic cardiomyopathy and some element of CHF also. Patient being monitored and treated. Cardiology, pulmonology and nephrology following the patient closely. Patient also complaining of severe pain at this time. The creatinine 0.98 at this time. PAST MEDICAL HISTORY: Reviewed. REVIEW OF SYSTEMS: CARDIOVASCULAR: No angina or palpitations. RESPIRATORY: As mentioned earlier. GI no nausea or vomiting. : No dysuria. NERVOUS SYSTEM: No numbness or weakness. CURRENT MEDICATIONS: Current medications are reviewed and include: 1. Tylenol 500 q.6h p.r.n. 2. [place] 5 mg q.p.m. 3. DuoNeb q.i.d. and p.r.n. 4. Xanax 0.25 mg daily. 5. Pulmicort 1 mg b.i.d. 6. Coreg. 7. Rocephin 1 g daily. 8. Flexeril 10 mg daily. 9. Lovenox 40 mg subcu b.i.d. 10.Pepcid 20 mg b.i.d. 11.Perforomist 20 mcg p.o. b.i.d. 12.Lasix 40 mg p.o. daily. 13.Lasix 40 mg IV q.8h. 14.Dilaudid 8 mg t.i.d. 15.Zestril 5 mg p.o. daily. 16.Protonix. 17.Carafate. 18.Restoril. PHYSICAL EXAM: Patient is alert, oriented x3. Pulse is 109. Blood pressure 113/60, respirations 16, temp 98.2, pulse ox 98% on room air. HEENT: Conjunctivae normal. NECK: No JVD. CARDIOVASCULAR SYSTEM: S1, S2 muffled. RESPIRATORY SYSTEM: Breath sounds diminished at the bases. Bilateral scattered rhonchi and crackles. ABDOMEN: Soft, nontender. No mass palpable. LEGS are no edema. No swelling. CENTRAL NERVOUS SYSTEM: No focal deficits. LABS: At this time previous hemoglobin 9.5. Accu-Cheks noted. UA noted. ASSESSMENT: 1. Shortness of breath possibly multifactorial mostly due to chronic obstructive pulmonary disease acute exacerbation with acute purulent tracheobronchitis as well as congestive heart failure acute exacerbation acute on chronic systolic dysfunction ejection fraction less than 20%. 2. History of nonischemic cardiomyopathy. 3. BNP elevated up to 300. 4. Anemia, normocytic anemia of chronic disease. 5. History of asthma. 6. Chronic pain syndrome, acute on chronic. 7. History of congestive heart failure. 8. History of cerebrovascular accident, transient ischemic attack. 9. History of deep vein thrombosis. 10.History of degenerative joint disease. 11.History of pulmonary embolism. 12.History of bilateral leg amputation. 13.History of renal disease. 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 15.History of bronchitis. 16.History of ESBL. 17.History of cholecystectomy. 18.History of anxiety, depression. 19.Remote history of nicotine dependence. 20.Right above-knee amputation, left below-knee amputation. RECOMMENDATIONS AND DISCUSSION: Recommend to continue current medications, continue monitoring, management and symptomatic treatment. Otherwise, at this time, I recommend to continue the diuretics. Continue the bronchodilators. Continue the steroids. Empiric antibiotics. Pain medications. Otherwise, I would recommend close followup with multiple consultants including Cardiology and pulmonology. Further recommendations to follow. See orders for details. MMODL / IJN: [id number] /
[2019-05-12 21:10] LABS: Glucose,Whole Blood 403 mg/dL (75-99)
[2019-05-12] MEDS: ALPRAZolam 1 MG TAB PO PRN (22:52)
[2019-05-13] MEDS: HYDROcodone/APAP 5-325MG 1 EACH TAB PO PRN ×2 (01:15→20:05)
[2019-05-13] MEDS: FUROSEMIDE 10 MG/ML 4 ML VIAL IV SCH (04:25)
[2019-05-13 06:14] LABS: Glucose,Whole Blood 139 mg/dL (75-99)
[2019-05-13] MEDS: methylPREDNISolone SOD SUCCI 125 MG/2 ML VIAL IV SCH ×2 (06:23→12:27)
[2019-05-13] MEDS: PANTOPRAZOLE 40 MG TABLET PO SCH (06:23)
[2019-05-13] MEDS: INSULIN ASPART (NovoLOG) 100 UNIT/ML VIAL SQ SCH ×4 (06:23→21:21)
[2019-05-13] MEDS: CARVEDILOL 6.25 MG TAB PO SCH ×2 (06:23→16:39)
[2019-05-13] MEDS: IPRATROPIUM-ALBUTEROL 3 ML NEB INHALATION SCH ×4 (08:34→20:54)
[2019-05-13] MEDS: BUDESONIDE 1 MG/2 ML NEBU INHALATION SCH ×2 (08:34→20:54)
[2019-05-13] MEDS: FORMOTEROL FUMARATE 20 MCG/2 ML NEBU INHALATION SCH ×2 (08:34→20:54)
[2019-05-13] MEDS: SUCRALFATE 1 GM TAB PO SCH (09:05)
[2019-05-13] MEDS: LISINOPRIL 5 MG TAB PO SCH (09:05)
[2019-05-13] MEDS: CLOPIDOGREL 75 MG TAB PO SCH (09:05)
[2019-05-13] MEDS: ENOXAPARIN 40 MG/0.4 ML SYRINGE SQ SCH ×2 (09:05→20:06)
[2019-05-13] MEDS: HYDROmorphone 4 MG TABLET PO SCH ×3 (09:05→23:54)
[2019-05-13 09:49] LABS: Calcium 8.9 mg/dL (8.4-10.2); Potassium 4.7 mmol/L (3.5-5.1)
[2019-05-13 10:11] LABS: Basophils % (A) 0 %; Eosinophils # (A) 0.1 k/uL (0-0.7); Eosinophils % (A) 1 %; HCT 37.6 % (34.0-46.0); HGB 11.2 gm/dL (11.4-16.0); Hypochromasia Marked; Lymphocytes # (A) 0.8 k/uL (1.0-4.8); Lymphocytes % (A) 7 %; MCH 30.1 pg (25.0-35.0); MCHC 29.8 g/dL (31.0-37.0); MCV 100.8 fL (80.0-100.0); Macrocytosis Slight; Mean Platelet Volume 8.6; Monocytes # (A) 0.3 k/uL (0-1.0); Monocytes % (A) 3 %; Neutrophils # (A) 11.1 k/uL (1.3-7.7); Neutrophils % (A) 89 %; Platelet Count 297 k/uL (150-450); RBC 3.73 m/uL (3.80-5.40); RDW 15.3 % (11.5-15.5); WBC 12.4 k/uL (3.8-10.6)
--- NOTE | 2019-05-13 11:36 | P.PN ---
Subjective Progress Note Date: 05/13/19 This is a pleasant 48-year-old -[place] female patient who follows with Dr. Gaona in the office. Has a known history of sticky platelet syndrome, nonischemic cardiomyopathy with an ejection fraction less than 20%, right xxzke-qgu-gwwi amputation and left vkklc-tji-goku amputation, recurrent PEs and DVTs, chronic kidney disease, severe peripheral vascular disease, and chronic pain. Was recently admitted the end of last month with acute on chronic systolic congestive heart failure at which time she was diuresed with IV Lasix. Prior to that she was at [facility] and was diagnosed with a recurrent PE and DVT and is currently being maintained on Lovenox. Presented from her primary care physician's office to the emergency department due to sudden worsening shortness of breath as well as transient vision loss lasting about a minute and complaints of edema in her left lower extremity. Chest x-ray showed cardiomegaly and mild congestion suggestive of minimal heart failure, small pleural effusions, no change from previous. Laboratory values on admission showed a white count of 6000, hemoglobin 11.1, BUN 18, creatinine 0.93. NT proBNP is elevated at 28,000 but appears to be trending downward and troponin 1 was negative. EKG showed sinus rhythm with heart rate of 96 bpm with no acute ST-T wave abnormalities. She is currently on Lasix IV 40 mg every 8 hours, Pulmicort, Rocephin, and Solu-Medrol. Upon examination, patient is resting comfortably in bed with no signs of distress. She feels that her breathing about the same as yesterday but does feel that the nebulizer treatments are helping. She's had no further episodes of transient vision loss. Objective - Vital Signs Vital signs: Vital Signs Temp 97.7 F 05/13/19 04:00 Pulse 90 05/13/19 08:55 Resp 18 05/13/19 04:00 BP 116/70 05/13/19 04:00 Pulse Ox 96 05/13/19 04:00 Intake & Output 05/12/19 05/13/19 05/13/19 18:59 06:59 18:59 Intake Total 2132 480 Output Total 2200 1675 Balance - 480 Weight 46.5 kg 47.2 kg Intake: Oral 2132 480 Output: Urine 2200 1675 Other: Voiding Method Bedpan # Voids 1 1 # Bowel Movements 0 - Exam PHYSICAL EXAMINATION: HEENT: Head is atraumatic, normocephalic. Pupils equal, round. Neck is supple. There is no elevated jugular venous pressure. HEART EXAMINATION: Heart sounds regular, S1 and S2 normal. No murmur or gallop heard. CHEST EXAMINATION: Lungs reveal diminished air entry bilaterally. No chest wall tenderness is noted on palpation or with deep breathing. ABDOMEN: Soft, nontender. Bowel sounds are heard. No organomegaly noted. EXTREMITIES: Right AKA and left BKA noted. NEUROLOGIC patient is awake, alert and oriented x3 - Labs CBC & Chem 7: 05/13/19 08:24 05/13/19 08:24 Labs: Abnormal Lab Results - Last 24 Hours (Table) 05/12/19 05/12/19 05/12/19 Range/Units 12:05 14:58 16:59 BUN (7-17) mg/dL Creatinine (0.52-1.04) mg/dL Glucose (74-99) mg/dL POC Glucose (mg/dL) 364 H 122 H (75-99) mg/dL Urine Opiates Screen Detected H (NotDetected) U Benzodiazepines Scrn Detected H (NotDetected) 05/12/19 05/13/19 05/13/19 Range/Units 21:08 06:13 08:24 BUN 25 H (7-17) mg/dL Creatinine 1.08 H (0.52-1.04) mg/dL Glucose 198 H (74-99) mg/dL POC Glucose (mg/dL) 403 H 139 H (75-99) mg/dL Urine Opiates Screen (NotDetected) U Benzodiazepines Scrn (NotDetected) Assessment and Plan Assessment: #1 chronic systolic congestive heart failure #2 COPD exacerbation #3 sticky platelet syndrome #4 nonischemic cardiomyopathy with ejection fraction less than 20% #5 recurrent PEs and DVTs #6 history of right AKA and left BKA Plan: From cardiology's perspective, we will switch the patient to oral Lasix. We will continue to follow the patient and provide further recommendations accordingly. MOTORMAN/WOMAN note has been reviewed, I agree with a documented findings and plan of care. Patient was seen and examined.
[2019-05-13 11:41] LABS: Appearance,Urine Clear (Clear); Bilirubin,Urine Negative (Negative); Blood,Urine Negative (Negative); Color,Urine Yellow; Glucose,Urine (UA) Negative (Negative); Ketones,Urine Negative (Negative); Leukocyte Esterase,Urine Small (Negative); Mucus,Urine Rare /hpf; Nitrite,Urine Negative (Negative); Protein,Urine 1+ (Negative); Specific Gravity,Urine 1.017 (1.001-1.035); Squamous Epithelial Cell,Urine 2 /hpf (0-4); Urobilinogen,Urine <2.0 mg/dL (<2.0); WBC,Urine 9 /hpf (0-5)
[2019-05-13 12:02] LABS: Glucose,Whole Blood 165 mg/dL (75-99)
--- NOTE | 2019-05-13 16:19 | PN ---
PROGRESS NOTE DATE OF SERVICE: 05/13/2019 This 48-year-old woman who was admitted with COPD, acute exacerbation, also had multiple medical issues, including some CHF, although the patient is on bronchodilators, steroids. No chest pain. No palpitations. No fever. On exam, alert and oriented x3. The pulse is 90, blood pressure 137/70, respiration 18, temperature 98 degrees, pulse ox % on 2 L. HEENT: Conjunctivae normal. NECK: No jugular venous distention. CARDIOVASCULAR SYSTEM: S1, S2 muffled. RESPIRATORY SYSTEM: Breath sounds diminished at the bases. Bilateral scattered rhonchi and crackles. Expiratory wheezing also present. ABDOMEN: Soft, non-tender. LEGS: Unchanged. No edema. No swelling. NERVOUS SYSTEM: No focal deficit. LABS: WBC 12.4, hemoglobin 11.2. Creatinine is 1.08. ASSESSMENT: 1. Shortness of breath, possibly multifactorial, mostly due to chronic obstructive pulmonary disease, acute exacerbation, with acute purulent tracheobronchitis as well as some congestive heart failure, acute exacerbation, with acute on chronic systolic dysfunction, ejection fraction less than 20%. 2. History of nonischemic cardiomyopathy. 3. BNP elevated up to 28,300. 4. Anemia, normocytic; anemia of chronic disease. 5. History of asthma, chronic, intermittent. 6. Chronic pain syndrome, acute on chronic. 7. History of congestive heart failure. 8. Cerebrovascular accident, transient ischemic attack. 9. History of deep vein thrombosis. 10.History of degenerative joint disease. 11.History of pulmonary embolism. 12.History of bilateral leg amputations. 13.History of renal disease. 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 15.History of bronchitis. 16.History of extended-spectrum beta-lactamase. 17.History of cholecystectomy. 18.History of anxiety, depression. 19.Remote history of nicotine dependence. 20.Right above-knee as well as left below-knee amputations. RECOMMENDATIONS AND DISCUSSION: I recommend to continue current medications, continue with the monitoring, symptomatic treatment. We will taper the steroids further. Closely follow with Pulmonary and Cardiology. The prognosis is guarded because of the multiple complex medical issues. Further recommendations to follow. MMODL / IJN: [id number] / MTDJen
[2019-05-13 16:34] LABS: Glucose,Whole Blood 250 mg/dL (75-99)
[2019-05-13] MEDS: methylPREDNISolone SOD SUCCI 40 MG/ML 1 ML VIAL IV SCH ×2 (16:38→23:05)
[2019-05-13 21:16] LABS: Glucose,Whole Blood 281 mg/dL (75-99)
[2019-05-13] MEDS: ALPRAZolam 1 MG TAB PO PRN (23:54)
[2019-05-14 06:02] LABS: Glucose,Whole Blood 330 mg/dL (75-99)
[2019-05-14] MEDS: PANTOPRAZOLE 40 MG TABLET PO SCH (06:30)
[2019-05-14] MEDS: CARVEDILOL 6.25 MG TAB PO SCH (06:30)
[2019-05-14] MEDS: INSULIN ASPART (NovoLOG) 100 UNIT/ML VIAL SQ SCH ×2 (06:30→12:59)
[2019-05-14 07:19] LABS: Basophils % (A) 0 %; Eosinophils % (A) 0 %; HCT 34.9 % (34.0-46.0); HGB 10.2 gm/dL (11.4-16.0); Hypochromasia Marked; Lymphocytes # (A) 0.7 k/uL (1.0-4.8); Lymphocytes % (A) 4 %; MCH 29.9 pg (25.0-35.0); MCHC 29.1 g/dL (31.0-37.0); MCV 102.9 fL (80.0-100.0); Macrocytosis Slight; Mean Platelet Volume 8.2; Monocytes # (A) 0.5 k/uL (0-1.0); Monocytes % (A) 3 %; Neutrophils # (A) 18.1 k/uL (1.3-7.7); Neutrophils % (A) 93 %; Platelet Count 292 k/uL (150-450); RDW 15.9 % (11.5-15.5); WBC 19.4 k/uL (3.8-10.6)
[2019-05-14 07:35] LABS: Calcium 8.6 mg/dL (8.4-10.2); Potassium 4.6 mmol/L (3.5-5.1)
[2019-05-14] MEDS: BUDESONIDE 1 MG/2 ML NEBU INHALATION SCH (08:02)
[2019-05-14] MEDS: IPRATROPIUM-ALBUTEROL 3 ML NEB INHALATION SCH ×2 (08:02→11:13)
[2019-05-14] MEDS: FORMOTEROL FUMARATE 20 MCG/2 ML NEBU INHALATION SCH (08:02)
--- NOTE | 2019-05-14 08:48 | PN ---
PROGRESS NOTE This Patient is seen for followup for chronic kidney disease. Her renal function has been stable. Serum creatinine has been at about 1.0 mg/dL. The patient was admitted to the hospital with complaints of shortness of breath. She has been diuresed. Lasix has been switched to p.o. Labs are pending from today. Overall, patient states she is feeling better. EXAMINATION: This morning, blood pressure 126/77, heart rate 88 per minute. She is afebrile. Examination of the heart S1, S2. Examination of the lungs, bilateral breath sounds are heard. Abdomen is soft, nontender. No significant edema noted in the lower extremities. Labs are not available from today. Serum creatinine 1.08 yesterday. Hemoglobin 11.2 g/dL. ASSESSMENT: 1. Congestive heart failure, volume overload, currently improving. 2. Cardiomyopathy, ejection fraction 20%. 3. Acute on top of chronic congestive heart failure, systolic. 4. Chronic kidney disease stage 2, baseline creatinine 0.8-0.9 mg/dL. 5. Hypertension with chronic kidney disease. 6. Metabolic acidosis. PLAN: Repeat labs today and continue with oral Lasix for now. May continue with the NOLVIA inhibitors. MMODL / IJN: [id number] /
[2019-05-14] MEDS: CLOPIDOGREL 75 MG TAB PO SCH (08:59)
[2019-05-14] MEDS ORDERED: FUROSEMIDE 40 MG TAB PO SCH (09:00)
[2019-05-14] MEDS: LISINOPRIL 5 MG TAB PO SCH (09:00)
[2019-05-14] MEDS: FAMOTIDINE 20 MG TAB PO SCH (09:00)
[2019-05-14] MEDS: HYDROmorphone 4 MG TABLET PO SCH (09:00)
[2019-05-14] MEDS: ENOXAPARIN 40 MG/0.4 ML SYRINGE SQ SCH (09:03)
[2019-05-14] MEDS: methylPREDNISolone SOD SUCCI 40 MG/ML 1 ML VIAL IV SCH (09:04)
[2019-05-14] MEDS: SUCRALFATE 1 GM TAB PO SCH (09:08)
[2019-05-14 12:18] LABS: Glucose,Whole Blood 179 mg/dL (75-99)
--- NOTE | 2019-05-14 13:06 | P.PN ---
Subjective Progress Note Date: 05/14/19 This is a pleasant 48-year-old -[place] female patient who follows with Dr. Gaona in the office. Has a known history of sticky platelet syndrome, nonischemic cardiomyopathy with an ejection fraction less than 20%, right qgdwu-gta-aafo amputation and left jaefy-bte-xbnw amputation, recurrent PEs and DVTs, chronic kidney disease, severe peripheral vascular disease, and chronic pain. Was recently admitted the end of last month with acute on chronic systolic congestive heart failure at which time she was diuresed with IV Lasix. Prior to that she was at [facility] and was diagnosed with a recurrent PE and DVT and is currently being maintained on Lovenox. Presented from her primary care physician's office to the emergency department due to sudden worsening shortness of breath as well as transient vision loss lasting about a minute and complaints of edema in her left lower extremity. Chest x-ray showed cardiomegaly and mild congestion suggestive of minimal heart failure, small pleural effusions, no change from previous. Laboratory values on admission showed a white count of 6000, hemoglobin 11.1, BUN 18, creatinine 0.93. NT proBNP is elevated at 28,000 but appears to be trending downward and troponin 1 was negative. EKG showed sinus rhythm with heart rate of 96 bpm with no acute ST-T wave abnormalities. She is currently on Lasix 40 mg PO daily, Pulmicort, Rocephin, and Solu-Medrol. 05/14/19 - Upon examination, patient is resting comfortably in bed with no signs of distress. She feels that her breathing has improved some. She still has small amounts of whitish sputum. Labs show stable renal function. Objective - Vital Signs Vital signs: Vital Signs Temp 98.1 F 05/14/19 08:50 Pulse 76 05/14/19 11:26 Resp 16 05/14/19 08:50 BP 117/68 05/14/19 08:50 Pulse Ox 100 05/14/19 08:50 Intake & Output 05/13/19 05/14/19 05/14/19 18:59 06:59 18:59 Intake Total 1586 272 240 Output Total 400 Balance 1586 272 -160 Weight 45.9 kg Intake: Intake, IV Titration 50 Amount cefTRIAXone 1 gm In 50 Sodium Chloride 0.9% 50 ml @ 100 mls/hr IVPB Q24H DEIRDRE Rx#:[id number] Oral 1586 222 240 Output: Urine 400 Other: Voiding Method Bedpan Bedpan # Voids 1 1 # Bowel Movements 0 1 - Exam PHYSICAL EXAMINATION: HEENT: Head is atraumatic, normocephalic. Pupils equal, round. Neck is supple. There is no elevated jugular venous pressure. HEART EXAMINATION: Heart sounds regular, S1 and S2 normal. No murmur or gallop heard. CHEST EXAMINATION: Lungs reveal diminished air entry bilaterally. No chest wall tenderness is noted on palpation or with deep breathing. ABDOMEN: Soft, nontender. Bowel sounds are heard. No organomegaly noted. EXTREMITIES: Right AKA and left BKA noted. NEUROLOGIC patient is awake, alert and oriented x3 - Labs CBC & Chem 7: 05/14/19 06:20 05/14/19 06:20 Labs: Abnormal Lab Results - Last 24 Hours (Table) 05/13/19 05/13/19 05/14/19 Range/Units 16:32 21:14 06:00 WBC (3.8-10.6) k/uL RBC (3.80-5.40) m/uL Hgb (11.4-16.0) gm/dL MCV (80.0-100.0) fL MCHC (31.0-37.0) g/dL RDW (11.5-15.5) % Neutrophils # (1.3-7.7) k/uL Lymphocytes # (1.0-4.8) k/uL BUN (7-17) mg/dL Creatinine (0.52-1.04) mg/dL Glucose (74-99) mg/dL POC Glucose (mg/dL) 250 H 281 H 330 H (75-99) mg/dL 05/14/19 05/14/19 05/14/19 Range/Units 06:20 06:20 12:14 WBC 19.4 H (3.8-10.6) k/uL RBC 3.40 L (3.80-5.40) m/uL Hgb 10.2 L (11.4-16.0) gm/dL MCV 102.9 H (80.0-100.0) fL MCHC 29.1 L (31.0-37.0) g/dL RDW 15.9 H (11.5-15.5) % Neutrophils # 18.1 H (1.3-7.7) k/uL Lymphocytes # 0.7 L (1.0-4.8) k/uL BUN 29 H (7-17) mg/dL Creatinine 1.05 H (0.52-1.04) mg/dL Glucose 224 H (74-99) mg/dL POC Glucose (mg/dL) 179 H (75-99) mg/dL Assessment and Plan Assessment: #1 chronic systolic congestive heart failure #2 COPD exacerbation #3 sticky platelet syndrome #4 nonischemic cardiomyopathy with ejection fraction less than 20% #5 recurrent PEs and DVTs #6 history of right AKA and left BKA Plan: From cardiology's perspective, medications were reviewed and we will continue the same. From our standpoint, she may be discharged home and follow-up with Dr Torrie Gary in the office. CRUSHER LOADER EQUIPMENT OPERATOR note has been reviewed, I agree with a documented findings and plan of care. Patient was seen and examined.
[2019-05-14 15:12] VITALS: BP 118/69; PULSE 88; RESP 18; TEMP 98.2
--- NOTE | 2019-05-14 22:59 | DS ---
DISCHARGE SUMMARY DATE OF SERVICE: 05/14/2019. FINAL DIAGNOSES: 1. Shortness of breath, possibly multifactorial due to chronic obstructive pulmonary disease acute exacerbation as well as acute purulent tracheobronchitis as well as some congestive heart failure, acute exacerbation, acute on chronic systolic dysfunction, ejection fraction less than 20%. 2. Nonischemic cardiomyopathy history. 3. BNP elevated up to 28,300. 4. Anemia, normocytic anemia of chronic disease. 5. History of asthma, chronic, intermittent. 6. Chronic pain syndrome, acute on chronic. 7. History of congestive heart failure. 8. History of cerebrovascular accident/transient ischemic attack. 9. History of deep vein thrombosis. 10.History of degenerative joint disease. 11.History of pulmonary embolism. 12.History of bilateral leg amputations. 13.History of renal disease. 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 15.History of bronchitis. 16.History of extended spectrum beta lactamase. 17.History of cholecystectomy. 18.History of anxiety, depression. 19.Remote history of nicotine dependence. 20.Right above-knee as well as left below-knee amputation. DISCHARGE DISPOSITION: The patient is being discharged in stable condition with guarded prognosis. Total time taken 35 minutes. HISTORY OF PRESENT ILLNESS: This 48-year-old woman with a past medical history of multiple medical problems as mentioned earlier, being followed by Dr. Carissa Castro in the outpatient setting was admitted with shortness of breath which was possibly multifactorial, COPD was also diagnosed. Patient was given bronchodilators, steroids, antibiotics. Patient improved significantly. Patient also has significant CHF also treated. The patient improved significantly. On exam, vitals are stable. Cardiovascular: S1, S2. Respirations: A few scattered rhonchi. ABDOMEN: Soft. NERVOUS SYSTEM: No focal deficits. LABORATORY DATA: Lab jones, WBC 19.2, hemoglobin 10.2. Creatinine is 1.05. Also recommend close follow up with Cardiology and pulmonology as recommended as well. DISCHARGE ADVICE AND MEDICATIONS: 1. Diet is cardiac diet. 2. Activity limited until followup. 3. Follow up with Dr. Carissa Castro in 1-2 days. 4. Follow up with Dr. Davenport and Dr. Back as recommended or p.r.n. basis. DISCHARGE MEDICATIONS: Home medications are as follows: 1. Carafate 1 g p.o. daily. 2. Dilaudid 8 mg p.o. t.i.d. 3. Flexeril 10 mg t.i.d. p.r.n. 4. Lasix 40 mg daily p.r.n. 5. Lovenox 40 mg subcu b.i.d. 6. Plavix 75 mg p.o. daily. 7. ProAir 1 puff q.6h p.r.n. 8. Xanax 2 mg p.o. daily p.r.n. 9. Advair 250/50 one puff b.i.d. 10.Ceftin 500 mg p.o. b.i.d. for 3 more days. 11.Coreg 6.25 mg p.o. b.i.d. with meals. 12.DuoNeb q.i.d. and p.r.n. 13.Nitrostat 0.4 mg p.r.n. 14.Pepcid 20 mg p.o. daily. 15.Tylenol 500 mg q.6h p.r.n. 16.Zestril 5 mg p.r.n. 17.Xanax 0.25 mg t.i.d. p.r.n. 18.Advair 1 puff b.i.d. Once again, the patient is being discharged in stable condition with guarded prognosis. MMBERNADETTEL / GUERON: [id number] /
== END 2019-05-14 15:10 | disposition home or self-care (01) | DRG 291 ==
LOC: EC 15:27 → 3SCARD 18:17
PROVIDERS: ADMIT Hospitalist; ATTEND Hospitalist
DX: I13.0 Hypertensive heart and chronic kidney disease with heart failure and stage 1 through stage 4 chronic kidney disease, or unspecified chronic kidney disease (principal); I50.23 Acute on chronic systolic (congestive) heart failure; J44.1 Chronic obstructive pulmonary disease with (acute) exacerbation; E87.2 Acidosis; I50.22 Chronic systolic (congestive) heart failure; D68.59 Other primary thrombophilia; J44.0 Chronic obstructive pulmonary disease with (acute) lower respiratory infection; I42.9 Cardiomyopathy, unspecified; G89.4 Chronic pain syndrome; N18.2 Chronic kidney disease, stage 2 (mild); D63.8 Anemia in other chronic diseases classified elsewhere; F32.9 Major depressive disorder, single episode, unspecified; F41.9 Anxiety disorder, unspecified; I73.9 Peripheral vascular disease, unspecified; J20.9 Acute bronchitis, unspecified; Z89.512 Acquired absence of left leg below knee; Z89.611 Acquired absence of right leg above knee; Z88.6 Allergy status to analgesic agent; Z88.8 Allergy status to other drugs, medicaments and biological substances; Z79.02 Long term (current) use of antithrombotics/antiplatelets; Z79.51 Long term (current) use of inhaled steroids; Z79.899 Other long term (current) drug therapy; Z82.0 Family history of epilepsy and other diseases of the nervous system; Z82.1 Family history of blindness and visual loss; Z86.19 Personal history of other infectious and parasitic diseases; Z86.711 Personal history of pulmonary embolism; Z86.718 Personal history of other venous thrombosis and embolism; Z86.73 Personal history of transient ischemic attack (TIA), and cerebral infarction without residual deficits; Z87.891 Personal history of nicotine dependence; Z90.49 Acquired absence of other specified parts of digestive tract
CPT/HCPCS: 36415; 71046; 80048; 80053; 80306; 81001; 81003; 83735; 83880; 84484; 85025; 85610; 85730; 93005; 94640; 96374; 96376; 99291

== ENCOUNTER 2019-05-17 20:52 | Observation (INO) | payer MEDICARE, OTHER ==
--- NOTE | 2019-05-17 21:49 | ED ---
General Adult HPI - General Chief complaint: Extremity Problem,Nontraumatic Stated complaint: Unable to use L hand Time Seen by Provider: 05/17/19 21:04 Source: patient Mode of arrival: wheelchair Limitations: no limitations - History of Present Illness Initial comments: Dictation was produced using [employer] dictation software. please excuse any grammatical, word or spelling errors. Chief Complaint: 49-year-old female with past medical history of sticky platelets syndrome, DVT, asthma, heart failure presents with bilateral hand pins and needle sensation. History of Present Illness: She is a 49-year-old female she presents today with bilateral pins and needle sensation. Patient states that started yesterday. States that her symptoms slightly increased. Patient does not have any history of neuropathy. 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 The ROS documented in this emergency department record has been reviewed and confirmed by me. Those systems with pertinent positive or negative responses have been documented in the HPI. All other systems are other negative and/or noncontributory. PHYSICAL EXAM: General Impression: Alert and oriented x3, not in acute distress HEENT: Normocephalic atraumatic, extra-ocular movements intact, pupils equal and reactive to light bilaterally, mucous membranes moist. Cardiovascular: Heart regular rate and rhythm, S1&S2 audible, no murmurs, rubs or gallops Chest: Lungs clear to auscultation bilaterally, no rhonchi, no wheeze, no rales Abdomen: Bowel sounds present, abdomen soft, non-tender, non-distended, no organomegaly Musculoskeletal: Pulses present and equal in radial pulses bilaterally. Bilateral lower extremity amputations. Motor: no focal deficits noted Neurological: CN II-XII grossly intact, sensation to light touch intact, sensation to pain. Denies any back Skin: Intact with no visualized rashes Psych: Normal affect and mood ED course: 49-year-old female presents with clinical presentation consistent with peripheral neuropathy. This point is unclear what is causing patient's symptoms. She does seem to have good equal refill to both hands with equal radial pulses. Her fingers however do feel cold compared to the rest of her body given that she is interpreted discernible patient is having any skin color changes.Laboratory evaluation obtained. CBC, metabolic panel is unremarkable. Glucose is 63. An order for glucose. Pending repeat blood sugar. There has been several attempts at trying to get a potassium level. Multiple hemolyzed samples. IV placement was performed using ultrasound guidance. In 18-gauge peripherally inserted ultrasound-guided IV was performed. Pending potassium levels. Patient has significant weakness to her right upper extremity compared to her left. There is concern of neurologic disease given the weakness. She does however have pins and needle sensation which is more consistent with neuropathy.. Patient be admitted with neurology on consultation. Patient be placed in observation unit. Patient be admitted to Dr. Flannery's service. EKG interpretation: Ventricular rate 104, sinus tachycardia, DE interval 142, care 68, QTc 465. No DE prolongation, no QTC prolongation, no ST or T-wave changes noted. Overall, this EKG is unremarkable - Related Data Home Medications Medication Instructions Recorded Confirmed Clopidogrel Bisulfate [Plavix] 75 mg PO DAILY 12/06/18 05/17/19 Cyclobenzaprine [Flexeril] 10 mg PO TID PRN 12/27/18 05/17/19 Albuterol Sulfate [Proair Hfa] 1 puff INHALATION RT-Q6H PRN 04/09/19 05/17/19 ALPRAZolam [Xanax] 2 mg PO DAILY PRN 05/01/19 05/17/19 Enoxaparin [Lovenox] 40 mg SQ BID 05/01/19 05/17/19 HYDROmorphone HCL [Dilaudid] 8 mg PO TID 05/01/19 05/17/19 Sucralfate [Carafate] 1 gram PO DAILY 05/01/19 05/17/19 Furosemide [Lasix] 40 mg PO DAILY PRN 05/11/19 05/17/19 Fluticasone/Salmeterol [Advair 1 puff INHALATION RT-BID 05/17/19 05/17/19 250-50 Diskus] Previous Rx's Medication Instructions Recorded Nitroglycerin Sl Tabs [Nitrostat] 0.4 mg SUBLINGUAL Q5M PRN tab 12/28/18 Famotidine [Pepcid] 20 mg PO DAILY #20 tab 03/11/19 Carvedilol [Coreg] 6.25 mg PO BID-W/MEALS #60 tab 04/12/19 Lisinopril [Zestril] 5 mg PO DAILY #30 tab 04/12/19 Acetaminophen Tab [Tylenol] 500 mg PO Q6HR PRN tab 05/14/19 Cefuroxime Axetil [Ceftin] 500 mg PO BID 3 Days #6 tab 05/14/19 Ipratropium-Albuterol Nebulize 3 ml INHALATION RT-QID #120 05/14/19 [Duoneb 0.5 mg-3 mg/3 ml Soln] ampul.neb Allergies Allergy/AdvReac Type Severity Reaction Status Date / Time ibuprofen Allergy Unknown Verified 05/17/19 21:09 trazodone AdvReac Chest Pain Verified 05/17/19 21:09 Review of Systems ROS Statement: Those systems with pertinent positive or pertinent negative responses have been documented in the HPI. ROS Other: All systems not noted in ROS Statement are negative. Past Medical History Past Medical History: Asthma, Heart Failure, CVA/TIA, Deep Vein Thrombosis (DVT), Osteoarthritis (OA), Pulmonary Embolus (PE), Renal Disease Additional Past Medical History / Comment(s): sticky platelet syndrome, bronchitis, anx/depression, falls renal failure History of Any Multi-Drug Resistant Organisms: ESBL Date of last positivie culture/infection: 10/15/18 ESBL MDRO Source:: Urine Past Surgical History: Cholecystectomy Additional Past Surgical History / Comment(s): ltBKA, left lower leg, aortic bypass right leg, right leg fasciotomy.pt stated had another vascular sx after the fasciotomy at [facility] unclear as to exactly what was done Rt AKA Past Anesthesia/Blood Transfusion Reactions: No Reported Reaction Additional Past Anesthesia/Blood Transfusion Reaction / Comment(s): pt stated has had a blood transfusion in past-no reaction. Past Psychological History: Anxiety, Depression Smoking Status: Former smoker Past Alcohol Use History: None Reported Past Drug Use History: None Reported - Past Family History Mother History Unknown: Yes Additional Family Medical History / Comment(s): MS, legally blind, cataracts Father Family Medical History: No Reported History Additional Family Medical History / Comment(s): Was younger when he , car accident General Exam Limitations: no limitations Course Vital Signs 05/17/19 05/17/19 21:00 23:11 Temperature 98.6 F Pulse Rate 117 H 100 Respiratory 20 18 Rate Blood Pressure 156/103 137/89 O2 Sat by Pulse 100 99 Oximetry Medical Decision Making - Lab Data Result diagrams: 05/17/19 22:18 05/17/19 23:49 Lab Results 05/17/19 05/17/19 05/17/19 Range/Units 22:18 22:18 23:49 WBC 7.4 (3.8-10.6) k/uL RBC 3.70 L (3.80-5.40) m/uL Hgb 11.2 L (11.4-16.0) gm/dL Hct 36.8 (34.0-46.0) % MCV 99.6 (80.0-100.0) fL MCH 30.2 (25.0-35.0) pg MCHC 30.3 L (31.0-37.0) g/dL RDW 15.2 (11.5-15.5) % Plt Count 336 (150-450) k/uL Neutrophils % 68 % Lymphocytes % 20 % Monocytes % 8 % Eosinophils % 3 % Basophils % 0 % Neutrophils # 5.0 (1.3-7.7) k/uL Lymphocytes # 1.5 (1.0-4.8) k/uL Monocytes # 0.6 (0-1.0) k/uL Eosinophils # 0.2 (0-0.7) k/uL Basophils # 0.0 (0-0.2) k/uL Hypochromasia Moderate Macrocytosis Slight Sodium 135 L (137-145) mmol/L Potassium (3.5-5.1) mmol/L Chloride 104 (98-107) mmol/L Carbon Dioxide 22 (22-30) mmol/L Anion Gap 9 mmol/L BUN 31 H (7-17) mg/dL Creatinine 0.89 (0.52-1.04) mg/dL Est GFR (CKD-EPI)AfAm 87 (>60 ml/min/1.73 sqM) Est GFR (CKD-EPI)NonAf 75 (>60 ml/min/1.73 sqM) Glucose 63 L (74-99) mg/dL Calcium 8.8 (8.4-10.2) mg/dL Ionized Calcium Fabiola 4.8 (4.5-5.3) mg/dL Phosphorus 4.7 H (2.5-4.5) mg/dL Magnesium 2.4 H (1.6-2.3) mg/dL TSH 0.915 (0.465-4.680) mIU/L Disposition Clinical Impression: Neuropathy Disposition: ADMITTED IP TO THIS HOSP Condition: Fair Referrals: Carissa Castro MD [Primary Care Provider] - 1-2 days Decision Time: 01:02
[2019-05-17 22:31] LABS: Basophils % (A) 0 %; Eosinophils # (A) 0.2 k/uL (0-0.7); Eosinophils % (A) 3 %; HCT 36.8 % (34.0-46.0); HGB 11.2 gm/dL (11.4-16.0); Hypochromasia Moderate; Lymphocytes # (A) 1.5 k/uL (1.0-4.8); Lymphocytes % (A) 20 %; MCH 30.2 pg (25.0-35.0); MCHC 30.3 g/dL (31.0-37.0); MCV 99.6 fL (80.0-100.0); Macrocytosis Slight; Mean Platelet Volume 7.1; Monocytes # (A) 0.6 k/uL (0-1.0); Monocytes % (A) 8 %; Neutrophils % (A) 68 %; Platelet Count 336 k/uL (150-450); RDW 15.2 % (11.5-15.5); WBC 7.4 k/uL (3.8-10.6)
[2019-05-17 22:40] LABS: Ionized Calcium 4.8 mg/dL (4.5-5.3)
[2019-05-17 22:50] LABS: Calcium 8.8 mg/dL (8.4-10.2); Magnesium 2.4 mg/dL (1.6-2.3); Phosphorus 4.7 mg/dL (2.5-4.5)
[2019-05-18] MEDS ORDERED: MORPHINE SULFATE 4 MG/ML SYRINGE IVP STA (00:57)
[2019-05-18] MEDS ORDERED: NALOXONE 0.4 MG/ML 1 ML VIAL IV PRN (01:02)
[2019-05-18] MEDS ORDERED: ONDANSETRON 4 MG/2 ML VIAL IVP PRN (01:02)
[2019-05-18] MEDS ORDERED: FUROSEMIDE 40 MG TAB PO PRN (01:04)
[2019-05-18] MEDS ORDERED: ACETAMINOPHEN TAB 500 MG TAB PO PRN (01:04)
[2019-05-18] MEDS ORDERED: ALBUTEROL NEBULIZED 2.5 MG/3 ML INHALATION PRN (01:04)
[2019-05-18] MEDS ORDERED: NITROGLYCERIN SL TABS 0.4 MG TAB SUBLINGUAL PRN (01:04)
[2019-05-18 01:41] LABS: Glucose,Whole Blood 95 mg/dL (75-99)
[2019-05-18] MEDS ORDERED: CYCLOBENZAPRINE 10 MG TAB PO PRN (02:00)
[2019-05-18] MEDS: SODIUM CHLORIDE 0.9% 1,000 ML IV SCH (02:47)
[2019-05-18] MEDS: CARVEDILOL 6.25 MG TAB PO SCH ×2 (07:57→17:02)
[2019-05-18] MEDS: MORPHINE SULFATE 4 MG/ML SYRINGE IV PRN ×4 (07:58→21:55)
[2019-05-18] MEDS: CLOPIDOGREL 75 MG TAB PO SCH (07:58)
[2019-05-18] MEDS: SYMBICORT 80-4.5 MCG INHALER INHALATION SCH ×2 (08:19→20:55)
[2019-05-18] MEDS: IPRATROPIUM-ALBUTEROL 3 ML NEB INHALATION SCH ×5 (08:19→20:55)
[2019-05-18] MEDS ORDERED: CEFDINIR 300 MG CAP PO SCH (09:00)
[2019-05-18] MEDS ORDERED: LISINOPRIL 5 MG TAB PO SCH (09:00)
[2019-05-18] MEDS ORDERED: ENOXAPARIN 40 MG/0.4 ML SYRINGE SQ SCH (09:00)
[2019-05-18] MEDS ORDERED: ALPRAZolam 1 MG TAB PO PRN (09:00)
[2019-05-18] MEDS ORDERED: FAMOTIDINE 20 MG TAB PO SCH ×2 (09:00→17:30)
[2019-05-18 09:33] LABS: Basophils % (A) 0 %; Eosinophils # (A) 0.2 k/uL (0-0.7); Eosinophils % (A) 3 %; HCT 34.2 % (34.0-46.0); Hypochromasia Marked; Lymphocytes # (A) 1.2 k/uL (1.0-4.8); Lymphocytes % (A) 20 %; MCHC 29.1 g/dL (31.0-37.0); MCV 102.9 fL (80.0-100.0); Macrocytosis Slight; Mean Platelet Volume 7.1; Monocytes # (A) 0.5 k/uL (0-1.0); Monocytes % (A) 8 %; Neutrophils % (A) 68 %; Platelet Count 296 k/uL (150-450); RBC 3.32 m/uL (3.80-5.40); RDW 15.4 % (11.5-15.5); WBC 5.9 k/uL (3.8-10.6)
[2019-05-18 09:43] LABS: Calcium 8.7 mg/dL (8.4-10.2); Potassium 5.6 mmol/L (3.5-5.1); Total Bilirubin 0.2 mg/dL (0.2-1.3); Total Protein 6.1 g/dL (6.3-8.2)
[2019-05-18 11:43] VITALS: BMI 15.9
[2019-05-18] MEDS ORDERED: LORazepam 2 MG/ML INJ IV STA (11:44)
--- NOTE | 2019-05-18 12:56 | CONS ---
CONSULTATION DATE OF CONSULTATION: 05/18/2019. REFERRING PHYSICIAN: Dr. Flannery. HISTORY OF PRESENT ILLNESS: Thank you for allowing me to evaluate Nel Linares who is a 49-year-old, right- handed female who presented to the [facility] for evaluation of upper extremity paresthesias and weakness, much more prominent on the right, which began on Thursday (05/16/2019). The patient states that on Thursday evening she was taking her tracy down and noted paresthesias involving the right upper extremity. She was able to finish what she did, but the next morning states that she "lost control" of her upper extremities, much more prominent on the right. She reports a pins/needles "porcupine" and "meat tenderizer" sensation involving the upper extremities, much more prominent on the right from the shoulders distally. She does admit that this is much more evident on the right distal to the mid forearm but denies this affecting specific fingers. She also reports that her fingertips feel "fuzzy". She has never had similar symptoms in the past. She denies a sensation being present in either lower extremity or the face. She did not sleep in an unusual position Thursday. She does report mild neck pain with radiation into the upper extremities to the level of the hands, but denies trauma at the onset of the symptoms. There was no associated vertigo, dysarthria, or difficulty chewing/swallowing. Thursday night, the patient questions whether she had a brief episode of horizontal diplopia lasting a few minutes and subsequently resolving. The patient was maintained on Plavix, aspirin 81 mg daily, and Lovenox at the time the symptoms developed in the setting of her history of sticky platelet syndrome with multiple complications related to this issue. The patient reports a history of 2 previous strokes, one which occurred in 2013 and left no residual and another which occurred about one year later where the patient states she received tPA and with that event and states that she could not speak, write, and had right-sided weakness which gradually improved, but the symptoms did not completely resolve. The patient's extensive history related to sticky platelet syndrome has included previous DVT, PE, nonischemic cardiomyopathy with ejection fraction of less than 20%, and previously documented bilateral renal infarcts. ALLERGIES: IBUPROFEN and TRAZODONE. HOME MEDICATIONS: Nitrostat, Lasix, Carafate, Zestril, DuoNeb, Dilaudid, Advair, Pepcid, Lovenox, Flexeril, Plavix, Ceftin, Coreg, ProAir, Tylenol, and Xanax. The patient states she typically takes 2 to 4 Dilaudid per day and 2 Xanax per day. PAST MEDICAL HISTORY: Sticky platelet syndrome, DVT/PE, COPD, CHF, nonischemic cardiomyopathy with ejection fraction of less than 20% per echocardiogram of 05/03/2019, chronic pain syndrome, depression, anxiety, bilateral renal infarcts and old left temporal and right frontotemporal/occipital infarcts documented on previous imaging studies of the brain available at [facility]. PAST SURGICAL HISTORY: Bilateral lower extremity amputations, right above the knee and left [id number], cholecystectomy, gastric bypass 6 to 7 years ago, thrombectomies, right shoulder and left hip surgeries. SOCIAL HISTORY: The patient quit smoking 1 year ago and previously smoked less than half pack per day. States she smoked for 10 to 15 years. She denied alcohol or drug use. She is single with 2 children and lives in an apartment by herself with family living nearby. FAMILY HISTORY: The patient states her mother had strokes at young age, although does not have a known clotting disorder. Father in a motor vehicle accident. REVIEW OF SYSTEMS: Fourteen systems are reviewed and no additional points are identified. Review of systems documented in the history and physical. PHYSICAL EXAM: Upon arrival to the patient's room, she was lying in bed, receptive to the examiner. Affect is flat. Her mother is at the bedside. She is an accurate historian and appears chronically ill and older than stated age. VITAL SIGNS: Blood pressure is 118/79 with pulse 90, respiratory rate 16, temperature 98.2, weight is 40.8 kg on a 5 feet 3 inch frame. SKIN AND EXTREMITIES: The patient has bilateral lower extremity amputations above the knee on the right and below the knee on the left. She has a tattoo across the chest. HEAD AND NECK: No tenderness or signs of trauma. Neck is supple without meningeal signs. Arteries are nontender and without bruits. HEART: Regular rate and rhythm. HIGHER CORTICAL FUNCTION: MENTAL STATUS: Patient was alert and oriented to self. She knew she was at [facility]. She knew the floor, year, month and day of week. She was able to name, repeat and read. There was no evidence of right and left disorientation, finger agnosia, extinction to double simultaneous stimulation or dysarthria. CRANIAL NERVES II THROUGH XII: Pupils are equal and reactive to light symmetrically. No afferent pupillary defect. Visual duncan are intact to confrontation. III, IV, : No ptosis. Extraocular movements are full. No nystagmus. V: Pinprick, light touch intact in all 3 divisions. Motor intact. VII: There is a right upper motor neuron facial asymmetry (this may be old). VIII: Acuity intact to finger rub. IX, X: Palate ed in midline. XI: Shoulder shrug was delayed on the right. XII: Tongue protruded midline without fasciculation or atrophy. MOTOR EXAMINATION: The patient provides a very poor effort on the motor exam. There was no clear pronator drift noted, although the patient moved to the upper extremities in a very slow and deliberate fashion. There was essentially normal bulk and tone noted in all major muscle groups with no involuntary movements noted. Strength for muscle strength testing is limited. In the setting, the patient has slow movements and limited effort but within these constraints, the upper extremity strength appeared at least 4+ over 5 bilaterally except at the right wrist extensors, which the patient could not perform and appear 0/5, right finger extensor 1/5. These were at least 4+ over 5 on the left. The patient was able to lift both lower extremities off the bed with strength of at least 4+ or 5 and on the left where she has a [id number] amputation, was able to extend and flex the quadriceps/hamstring with strength of at least 4+ over 5. SENSORY: Patient reports diminution to pinprick and light touch involving the right upper extremity as compared to the left. Lower extremities were symmetric. With performing a detailed examination of the right upper extremity, the patient is somewhat unreliable, but the most prominent deficit appears to be along the lateral distal forearm and extending into the webspace between the thumb and index finger (radial distribution), the patient reported less paresthesias along the medial aspect of the forearm and into the fifth digit. REFLEXES: Patient is areflexic throughout. Plantar response could not be assessed on either side in the setting the amputations. Pizarro's is absent. COORDINATION: Patient performed [id number] movements quite slowly, but there was no ataxia. Rapid alternating movements are slow but symmetric. DIAGNOSTIC TESTING: The patient's lab work demonstrated white blood cell count of 7.4 with hemoglobin 11.2, platelet count 336. Sodium 135, potassium. 5.8, BUN 31, with creatinine 0.89. Calcium 8.8, magnesium 2.4, phosphorus 4.7. TSH within normal limits. There were prior imaging studies available on the computer including a CT from 04/10/2019, which demonstrated old left parietal temporal and right frontal temporal occipital infarcts which were also present on a prior CT from 07/09/2017. IMPRESSION: 1. Upper extremity numbness/weakness, which developed subtly Thursday night and much more prominent upon awakening Thursday morning, this is particularly noted involving the right upper extremity and in the setting of the patient's extensive history, stroke is difficult to exclude, patient has right-sided findings, although some of these may be old in the setting of prior infarcts. The most prominent motor and sensory deficit appears to be in a right radial distribution and may be secondary to a right radial mononeuropathy. Risk factors for stroke include cardiomyopathy with ejection fraction of less than 20%, sticky platelet syndrome, and previous stroke. The patient was on Lovenox, Plavix, and aspirin 81 mg q. day at the time these symptoms developed. 2. Old left temporoparietal and right frontotemporal occipital infarcts, the patient states with her last, most prominent stroke she received tPA, had difficulty with speech, writing, and right-sided weakness, which subsequently improved, but these deficits did not completely resolve per patient. 3. Prerenal azotemia. 4. Chronic narcotic/benzodiazepine consumption. 5. The patient is status post gastric bypass. 6. Multiple medical problems including sticky platelet syndrome, previous deep venous thrombosis/pulmonary embolism, chronic obstructive pulmonary disease, nonischemic cardiomyopathy with history of congestive heart failure, chronic pain syndrome, depression, anxiety, and history of bilateral renal infarcts. RECOMMENDATION: 1. I discussed my impression with the patient and her mother and they expressed understanding. 2. We will obtain MRI of the brain and cervical spine, if these are unrevealing, would suggest the patient undergo outpatient EMG in 3 weeks (to maximize yield of testing). 3. Risk factor modification. 4. Patient will continue Lovenox, Plavix and aspirin for now. 5. Hydration per primary service. 6. Will follow with you. Thank you for allowing me to participate in the care of your patient. MMODL / IJN: [id number] /
--- NOTE | 2019-05-18 13:35 | P.HPIM ---
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 On exam patient has significant right wrist drop and does have some sensory deficits does have weakness in the right arm as well has strength of about 3/5 in the right upper limb and about 3-4/5 in the left upper arm. Was evaluated neurology. Plan is to rule out stroke related to thrombi embolic disease from 6 platelet syndrome and if that's ruled out patient may have mononeuropathy of the right radial now resulting in right wrist drop. Patient had weakness is significant may benefit from inpatient intimidation because of which we get was consulted and inpatient rehabitation services was consulted as well. Patient denied any fever chills patient had nausea vomiting. Patient on 40 mg of subcutaneous Lovenox and Tommie at home along with Plavix and aspirin which are being continued at this time.Abnormality in symptoms started Thursday night . Patient had history of multiple improvement of strokes in the past. Review of Systems REVIEW OF SYSTEMS: CONSTITUTIONAL: No fever, no malaise, no fatigue. HEENT: No recent visual problems or hearing problems. Denied any sore throat. CARDIOVASCULAR: No chest pain, orthopnea, PND, no palpitations, no syncope. PULMONARY: No shortness of breath, no cough, no hemoptysis. GASTROINTESTINAL: No diarrhea, no nausea, no vomiting, no abdominal pain. NEUROLOGICAL: No headaches, HEMATOLOGICAL: Denies any bleeding or petechiae. GENITOURINARY: Denies any burning micturition, frequency, or urgency. MUSCULOSKELETAL/RHEUMATOLOGICAL: Denies any joint pain, swelling, or any muscle pain. ENDOCRINE: Denies any polyuria or polydipsia. The rest of the 14-point review of systems is negative. Past Medical History Past Medical History: Asthma, Heart Failure, CVA/TIA, Deep Vein Thrombosis (DVT), Osteoarthritis (OA), Pulmonary Embolus (PE), Renal Disease Additional Past Medical History / Comment(s): sticky platelet syndrome, bronchitis, anx/depression, falls renal failure History of Any Multi-Drug Resistant Organisms: ESBL Date of last positivie culture/infection: 10/15/18 ESBL MDRO Source:: Urine Past Surgical History: Cholecystectomy Additional Past Surgical History / Comment(s): ltBKA, left lower leg, aortic bypass right leg, right leg fasciotomy.pt stated had another vascular sx after the fasciotomy at [facility] unclear as to exactly what was done Rt AKA Past Anesthesia/Blood Transfusion Reactions: No Reported Reaction Additional Past Anesthesia/Blood Transfusion Reaction / Comment(s): pt stated has had a blood transfusion in past-no reaction. Past Psychological History: Anxiety, Depression Additional Psychological History / Comment(s): Is cared for by her mother in her own private residence, denies depression at this time. No animal exposures Smoking Status: Former smoker Past Alcohol Use History: None Reported Additional Past Alcohol Use History / Comment(s): started smoking at age 22; quit 2018 was smoking 1/2ppd. Past Drug Use History: None Reported - Past Family History Mother History Unknown: Yes Additional Family Medical History / Comment(s): MS, legally blind, cataracts Father Family Medical History: No Reported History Additional Family Medical History / Comment(s): Was younger when he , car accident Medications and Allergies Home Medications Medication Instructions Recorded Confirmed Type Clopidogrel Bisulfate [Plavix] 75 mg PO DAILY 12/06/18 05/17/19 History Cyclobenzaprine [Flexeril] 10 mg PO TID PRN 12/27/18 05/17/19 History Nitroglycerin Sl Tabs [Nitrostat] 0.4 mg SUBLINGUAL Q5M PRN tab 12/28/18 05/17/19 Rx Famotidine [Pepcid] 20 mg PO DAILY #20 tab 03/11/19 05/17/19 Rx Albuterol Sulfate [Proair Hfa] 1 puff INHALATION RT-Q6H PRN 04/09/19 05/17/19 History Carvedilol [Coreg] 6.25 mg PO BID-W/MEALS #60 tab 04/12/19 05/17/19 Rx Lisinopril [Zestril] 5 mg PO DAILY #30 tab 04/12/19 05/17/19 Rx ALPRAZolam [Xanax] 2 mg PO DAILY PRN 05/01/19 05/17/19 History Enoxaparin [Lovenox] 40 mg SQ BID 05/01/19 05/17/19 History HYDROmorphone HCL [Dilaudid] 8 mg PO TID 05/01/19 05/17/19 History Sucralfate [Carafate] 1 gram PO DAILY 05/01/19 05/17/19 History Furosemide [Lasix] 40 mg PO DAILY PRN 05/11/19 05/17/19 History Acetaminophen Tab [Tylenol] 500 mg PO Q6HR PRN tab 05/14/19 05/17/19 Rx Cefuroxime Axetil [Ceftin] 500 mg PO BID 3 Days #6 tab 05/14/19 05/17/19 Rx Ipratropium-Albuterol Nebulize 3 ml INHALATION RT-QID #120 05/14/19 05/17/19 Rx [Duoneb 0.5 mg-3 mg/3 ml Soln] ampul.neb Fluticasone/Salmeterol [Advair 1 puff INHALATION RT-BID 05/17/19 05/17/19 History 250-50 Diskus] Allergies Allergy/AdvReac Type Severity Reaction Status Date / Time ibuprofen Allergy Unknown Verified 05/17/19 21:09 trazodone AdvReac Chest Pain Verified 05/17/19 21:09 Physical Exam Vitals: Vital Signs Temp Pulse Pulse Resp BP BP Pulse Ox 05/18/19 13:07 99 24 05/18/19 08:31 90 05/18/19 08:19 90 05/18/19 07:00 98.2 F 99 16 118/79 100 05/18/19 02:02 98.2 F 91 18 142/92 99 05/18/19 01:34 98.0 F 96 18 142/103 100 05/17/19 23:11 100 18 137/89 99 05/17/19 21:00 98.6 F 117 H 20 156/103 100 Intake and Output 05/17/19 05/18/19 05/18/19 22:59 06:59 14:59 Intake Total 480 Balance 480 Intake: Oral 480 Other: Voiding Method Bedpan Bedpan Weight 40.823 kg 40.823 kg PHYSICAL EXAMINATION: GENERAL: The patient is alert and oriented x3, not in any acute distress. Thin built HEENT: Pupils are round and equally reacting to light. EOMI. No scleral icterus. No conjunctival pallor. Normocephalic, atraumatic. No pharyngeal erythema. No thyromegaly. CARDIOVASCULAR: S1 and S2 present. No murmurs, rubs, or gallops. PULMONARY: Chest is clear to auscultation, no wheezing or crackles. ABDOMEN: Soft, nontender, nondistended, normoactive bowel sounds. No palpable organomegaly. MUSCULOSKELETAL: No joint swelling or deformity. Bilateral lower limb amputation's as mentioned in the HPI EXTREMITIES: No cyanosis, clubbing, or pedal edema. NEUROLOGICAL: As mentioned in HPI SKIN: No rashes. Results CBC & Chem 7: 05/18/19 08:59 05/18/19 08:59 Labs: Abnormal Lab Results - Last 24 Hours (Table) 05/17/19 05/17/19 05/18/19 Range/Units 22:18 22:18 00:54 RBC 3.70 L (3.80-5.40) m/uL Hgb 11.2 L (11.4-16.0) gm/dL MCV (80.0-100.0) fL MCHC 30.3 L (31.0-37.0) g/dL Sodium 135 L (137-145) mmol/L Potassium 5.8 H (3.5-5.1) mmol/L Carbon Dioxide (22-30) mmol/L BUN 31 H (7-17) mg/dL Glucose 63 L (74-99) mg/dL Phosphorus 4.7 H (2.5-4.5) mg/dL Magnesium 2.4 H (1.6-2.3) mg/dL AST (14-36) U/L ALT (9-52) U/L Alkaline Phosphatase (38-126) U/L Total Protein (6.3-8.2) g/dL Albumin (3.5-5.0) g/dL 05/18/19 05/18/19 Range/Units 08:59 08:59 RBC 3.32 L (3.80-5.40) m/uL Hgb 10.0 L (11.4-16.0) gm/dL MCV 102.9 H (80.0-100.0) fL MCHC 29.1 L (31.0-37.0) g/dL Sodium 136 L (137-145) mmol/L Potassium 5.6 H (3.5-5.1) mmol/L Carbon Dioxide 20 L (22-30) mmol/L BUN 27 H (7-17) mg/dL Glucose 119 H (74-99) mg/dL Phosphorus (2.5-4.5) mg/dL Magnesium (1.6-2.3) mg/dL AST 48 H (14-36) U/L ALT 67 H (9-52) U/L Alkaline Phosphatase 142 H (38-126) U/L Total Protein 6.1 L (6.3-8.2) g/dL Albumin 3.0 L (3.5-5.0) g/dL Thrombosis Risk Factor Assmnt - Choose All That Apply Each Factor Represents 1 point: Age 41-60 years Each Risk Factor Represents 3 Points: History of DVT/PE Thrombosis Risk Factor Assessment Total Risk Factor Score: 4 Thrombosis Risk Factor Assessment Level: Moderate Risk Assessment and Plan Plan: Bilateral upper limb by weakness along with sensory deficits: Possible differentials being thromboembolic disease and infarction of the cervical spine and multiple infarcts in the brain. Her left upper limb weakness can be older and she hasn't been weakness in the right hand because of which are monon europathy is a consideration as well.. OT will be consulted Dr. Nunez will be consulted as well. Patient will undergo MRI of cervical spine and head. -history of CVA with multiple blood temporal parietal strokes and right frontoparietal occipital infarcts in the past. -Hyperkalemia seconded to lisinopril which will be held and we'll repeat potassium tomorrow. 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
--- NOTE | 2019-05-18 15:14 | P.CONS ---
History of Present Illness - Chief Complaint Medical debility - History of Present Illness I had the opportunity see patient for inpatient rehab consultation with regard to medical debility. She was admitted to [facility] earlier today with weakness in arms. History of right AKA and left BKA. Previous functional history:She required physical assistance from mom for bathing and dressing over the last year and for wheelchair mobility. Mom does the cooking and laundry. Patient's 49-year-old right-handed female who is single lives in a first-floor apartment with a caregiver. Mom lives next door. History of smoking but doesn't smoke or drink currently. Dr. Soy Flannery is regular doctor. Family history mother with thyroid and seizure. Review of Systems Review of systems: ENT: Denies sneezes or discharge. Eyes: Denies discharge or photophobia. Cardiac: Denies chest pain or palpitation. Pulmonary: Denies cough or shortness of breath. Breast: Denies discharge or lumps. Gastrointestinal: Denies nausea, emesis, constipation, diarrhea. Genitourinary: Denies discharge or frequency. Musculoskeletal: Old left BKA and right AKA. Neurologic: Weakness in arms and legs. Endocrine: Denies shakes or sweats. Oncology: Denies cancers. Dermatologic: Denies rash, itching, pruritus. ALLERGY/immunology: Denies sneezes, rashes. Past Medical History Past Medical History: Asthma, Heart Failure, CVA/TIA, Deep Vein Thrombosis (DV T), Osteoarthritis (OA), Pulmonary Embolus (PE), Renal Disease Additional Past Medical History / Comment(s): sticky platelet syndrome, bronchitis, anx/depression, falls renal failure History of Any Multi-Drug Resistant Organisms: ESBL Year Discovered:: 10/15/18 ESBL MDRO Source:: Urine Past Surgical History: Cholecystectomy Additional Past Surgical History / Comment(s): ltBKA, left lower leg, aortic bypass right leg, right leg fasciotomy.pt stated had another vascular sx after the fasciotomy at [facility] unclear as to exactly what was done Rt AKA Past Anesthesia/Blood Transfusion Reactions: No Reported Reaction Additional Past Anesthesia/Blood Transfusion Reaction / Comm: pt stated has had a blood transfusion in past-no reaction. Past Psychological History: Anxiety, Depression Additional Psychological History / Comment(s): Is cared for by her mother in her own private residence, denies depression at this time. No animal exposures Smoking Status: Former smoker Past Alcohol Use History: None Reported Additional Past Alcohol Use History / Comment(s): started smoking at age 22; quit 2018 was smoking 1/2ppd. Past Drug Use History: None Reported - Past Family History Mother History Unknown: Yes Additional Family Medical History / Comment(s): MS, legally blind, cataracts Father Family Medical History: No Reported History Additional Family Medical History / Comment(s): Was younger when he , car accident Medications and Allergies Home Medications Medication Instructions Recorded Confirmed Type Clopidogrel Bisulfate [Plavix] 75 mg PO DAILY 12/06/18 05/17/19 History Cyclobenzaprine [Flexeril] 10 mg PO TID PRN 12/27/18 05/17/19 History Nitroglycerin Sl Tabs [Nitrostat] 0.4 mg SUBLINGUAL Q5M PRN tab 12/28/18 05/17/19 Rx Famotidine [Pepcid] 20 mg PO DAILY #20 tab 03/11/19 05/17/19 Rx Albuterol Sulfate [Proair Hfa] 1 puff INHALATION RT-Q6H PRN 04/09/19 05/17/19 History Carvedilol [Coreg] 6.25 mg PO BID-W/MEALS #60 tab 04/12/19 05/17/19 Rx Lisinopril [Zestril] 5 mg PO DAILY #30 tab 04/12/19 05/17/19 Rx ALPRAZolam [Xanax] 2 mg PO DAILY PRN 05/01/19 05/17/19 History Enoxaparin [Lovenox] 40 mg SQ BID 05/01/19 05/17/19 History HYDROmorphone HCL [Dilaudid] 8 mg PO TID 05/01/19 05/17/19 History Sucralfate [Carafate] 1 gram PO DAILY 05/01/19 05/17/19 History Furosemide [Lasix] 40 mg PO DAILY PRN 05/11/19 05/17/19 History Acetaminophen Tab [Tylenol] 500 mg PO Q6HR PRN tab 05/14/19 05/17/19 Rx Cefuroxime Axetil [Ceftin] 500 mg PO BID 3 Days #6 tab 05/14/19 05/17/19 Rx Ipratropium-Albuterol Nebulize 3 ml INHALATION RT-QID #120 05/14/19 05/17/19 Rx [Duoneb 0.5 mg-3 mg/3 ml Soln] ampul.neb Fluticasone/Salmeterol [Advair 1 puff INHALATION RT-BID 05/17/19 05/17/19 History 250-50 Diskus] Allergies Allergy/AdvReac Type Severity Reaction Status Date / Time ibuprofen Allergy Unknown Verified 05/17/19 21:09 trazodone AdvReac Chest Pain Verified 05/17/19 21:09 Physical Exam Vitals: Vital Signs Temp Pulse Pulse Resp BP BP Pulse Ox 05/18/19 13:43 98 05/18/19 13:29 98 05/18/19 13:07 99 24 05/18/19 08:31 90 05/18/19 08:19 90 05/18/19 07:00 98.2 F 99 16 118/79 100 05/18/19 02:02 98.2 F 91 18 142/92 99 05/18/19 01:34 98.0 F 96 18 142/103 100 05/17/19 23:11 100 18 137/89 99 05/17/19 21:00 98.6 F 117 H 20 156/103 100 Intake and Output 05/18/19 05/18/19 05/18/19 06:59 14:59 22:59 Intake Total 480 250 Balance 480 250 Intake: Oral 480 250 Other: Voiding Method Bedpan Bedpan Weight 40.823 kg Skin: Good color, texture, turgor. General: Thin build and comfortable appearance. Head: Normocephalic, atraumatic. Eyes: Symmetric. Pupils equal round. Ears: Symmetric. Hearing within normal limits. Mouth: Clear. Neck: Supple. Carotid without bruit. Cardiac: Regular rate and rhythm. Lungs: Clear anteriorly and posteriorly. Abdomen: Soft active nontender. Extremities: Normal tone. Old well-healed right AKA and left BKA. Neurological: Mental status: Alert, cooperative, pleasant. Cranial nerves: Symmetric facial tone and trapezius. Motor: Difficulty elevating arms or legs off of bed. Sensation: Intact throughout. DTRs: Symmetric and equal throughout. Mobility: Requires physical assistance bed mobility. Results CBC & Chem 7: 05/18/19 08:59 05/18/19 08:59 Labs: Abnormal Lab Results - Last 24 Hours (Table) 05/17/19 05/17/19 05/18/19 Range/Units 22:18 22:18 00:54 RBC 3.70 L (3.80-5.40) m/uL Hgb 11.2 L (11.4-16.0) gm/dL MCV (80.0-100.0) fL MCHC 30.3 L (31.0-37.0) g/dL Sodium 135 L (137-145) mmol/L Potassium 5.8 H (3.5-5.1) mmol/L Carbon Dioxide (22-30) mmol/L BUN 31 H (7-17) mg/dL Glucose 63 L (74-99) mg/dL Phosphorus 4.7 H (2.5-4.5) mg/dL Magnesium 2.4 H (1.6-2.3) mg/dL AST (14-36) U/L ALT (9-52) U/L Alkaline Phosphatase (38-126) U/L Total Protein (6.3-8.2) g/dL Albumin (3.5-5.0) g/dL 05/18/19 05/18/19 Range/Units 08:59 08:59 RBC 3.32 L (3.80-5.40) m/uL Hgb 10.0 L (11.4-16.0) gm/dL MCV 102.9 H (80.0-100.0) fL MCHC 29.1 L (31.0-37.0) g/dL Sodium 136 L (137-145) mmol/L Potassium 5.6 H (3.5-5.1) mmol/L Carbon Dioxide 20 L (22-30) mmol/L BUN 27 H (7-17) mg/dL Glucose 119 H (74-99) mg/dL Phosphorus (2.5-4.5) mg/dL Magnesium (1.6-2.3) mg/dL AST 48 H (14-36) U/L ALT 67 H (9-52) U/L Alkaline Phosphatase 142 H (38-126) U/L Total Protein 6.1 L (6.3-8.2) g/dL Albumin 3.0 L (3.5-5.0) g/dL Assessment and Plan (1) CHF exacerbation Current Visit: No Status: Acute Code(s): I50.9 - HEART FAILURE, UNSPECIFIED SNOMED Code(s): 582539823 Plan: Impression: 1. Medical debility. 2. CHF exacerbation. 3. Generalized weakness. 4. Old right AKA and left BKA. 5. History of DVT and PE and CVA. 6. Asthma. 7. Osteoarthritis. Constant plan: At this time PT and OT are ordered. Patient reports dependent history recurrent physical assistance for mom for at least the last year. At this time, rehab prognosis guarded in would anticipate ongoing need 01/06 physica l cyst.
--- NOTE | 2019-05-18 19:05 | MR ---
MRI CERVICAL SPINE: CLINICAL HISTORY: Neck pain. Weakness. TECHNIQUE: Multiplanar multi echo imaging of the brain and cervical spine was performed with no contr ast. COMPARISON: 07/10/2017 FINDINGS: There is cerebral cortical atrophy. There is evidence of old 4 cm infarct in the anterior r ight temporal lobe and also 3.5 cm infarct left posterior temporal lobe. There is no midline shift. T here is no sign of intracranial hemorrhage. Diffusion images show no acute cortical infarct. The FLAI R images show extensive white matter abnormal increased signal around the lateral ventricles and at t he tom-white matter junction of the left posterior parietal lobe, left posterior temporal lobe, righ t temporal occipital lobe and the right frontal lobe. The cerebellum appears fairly normal. Brainstem is intact. There is small 2 cm old cortical infarct right posterior temporal lobe. Cervical vertebra have fairly normal spacing and alignment. Cervical spinal cord has normal signal pa ttern. There is no edema. There is a small posterior disc bulge at C5-6 without impingement on the sp inal canal. There is developmentally adequate canal. There is no spinal stenosis. I see no focal bone destruction. Brainstem is intact. Posterior elements are intact. IMPRESSION: Negative MR scan of the cervical spine. Minimal posterior disc bulging at C5-6 unchanged compared to 04/10/2017 exam. Cerebral atrophy with old cortical infarct in the left and right temporal lobes with white matter sharron nges consistent with chronic small vessel ischemia and multiple white matter lacunar infarcts. There is progression of the cortical infarcts compared to old exam. No evidence of an acute cortical infarc t. No evidence of acute white matter infarct.
[2019-05-18 19:44] LABS: Hemoglobin A1C 5.6 % (4.0-6.0)
[2019-05-18] MEDS: ENOXAPARIN 40 MG/0.4 ML SYRINGE SQ SCH (21:04)
[2019-05-19] MEDS: SODIUM CHLORIDE 0.9% 1,000 ML IV SCH (01:06)
[2019-05-19] MEDS: MORPHINE SULFATE 4 MG/ML SYRINGE IV PRN ×4 (02:16→15:00)
[2019-05-19 07:18] VITALS: RESP 16
[2019-05-19] MEDS: SYMBICORT 80-4.5 MCG INHALER INHALATION SCH (07:49)
[2019-05-19] MEDS: IPRATROPIUM-ALBUTEROL 3 ML NEB INHALATION SCH ×2 (07:49→10:47)
[2019-05-19] MEDS: ENOXAPARIN 40 MG/0.4 ML SYRINGE SQ SCH (08:30)
[2019-05-19] MEDS: CARVEDILOL 6.25 MG TAB PO SCH (08:30)
[2019-05-19] MEDS: CLOPIDOGREL 75 MG TAB PO SCH (08:30)
[2019-05-19] MEDS ORDERED: ENOXAPARIN 40 MG/0.4 ML SYRINGE SQ SCH (09:00)
[2019-05-19 13:59] VITALS: BP 120/81; PULSE 91; TEMP 98.2
--- NOTE | 2019-05-19 16:37 | P.DS ---
Providers Date of admission: 05/18/19 01:04 Expected date of discharge: 05/19/19 Attending physician: Misty Flannery Consults: 05/18/19 01:03 Consult Physician Routine Consulting Provider: Sabas Thomas Consult Reason/Comments: neuropathy? Do you want consulting provider notified?: Yes 05/18/19 11:48 Consult Physician Routine Consulting Provider: Andres Fabian Consult Reason/Comments: eval for inpatient rehab Do you want consulting provider notified?: Yes Primary care physician: [facility] Course: Final diagnosis Bilateral upper limb weakness more so on the right than left with sensory deficits. Possible differentials being thromboembolic disease and infarction of the cervical spine and multiple infarcts in the brain. 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 Time taken 30 minutes. Patient did receive a right wrist cock-up splint for neuropathic comfort which was delivered to the bedside. Patient is also going home with a prescription for outpatient physical therapy. Patient has been cleared medically for return to physical therapy and outpatient setting. History of present illness This is a 49-year-old female was recently admitted for right sided weakness more so than the left but having bilateral weakness with tingling and numbness. Neurology was consult did an MRI was performed showing no new changes at this time. Patient denies any shortness of breath, chest pain, palpitations, and has been afebrile. Upon exam patient had just completed bathing herself with the assistance of her mother at the bedside and feels quite fatigued. Patient denies any dizziness, lightheadedness, or headaches at this time. Patient is requesting to go back to physical therapy and outpatient setting. On exam patient is alert and oriented 3, not in any acute distress and sitting up in her wheelchair. Cardio S1 and S2 present with no murmurs noted. Respiratory is clear to auscultation with no wheezing noted. Abdomen is soft and nontender. Neurological shows a weakness in the right wrist but able to move with assistance. Left arm and wrist show no new focal deficits. Bilateral lower limb amputation is noted on exam. Please refer to the medication reconciliation sheet for list of medications Patient Condition at Discharge: Fair Plan - Discharge Summary New Discharge Prescriptions: Continue Clopidogrel Bisulfate [Plavix] 75 mg PO DAILY Cyclobenzaprine [Flexeril] 10 mg PO TID PRN PRN Reason: Muscle Spasm Nitroglycerin Sl Tabs [Nitrostat] 0.4 mg SUBLINGUAL Q5M PRN tab PRN Reason: Chest Pain Famotidine [Pepcid] 20 mg PO DAILY #20 tab Albuterol Sulfate [Proair Hfa] 1 puff INHALATION RT-Q6H PRN PRN Reason: Shortness Of Breath Carvedilol [Coreg] 6.25 mg PO BID-W/MEALS #60 tab Lisinopril [Zestril] 5 mg PO DAILY #30 tab HYDROmorphone HCL [Dilaudid] 8 mg PO TID Sucralfate [Carafate] 1 gram PO DAILY Enoxaparin [Lovenox] 40 mg SQ BID ALPRAZolam [Xanax] 2 mg PO DAILY PRN PRN Reason: Anxiety Furosemide [Lasix] 40 mg PO DAILY PRN PRN Reason: SWELLING Cefuroxime Axetil [Ceftin] 500 mg PO BID 3 Days #6 tab Ipratropium-Albuterol Nebulize [Duoneb 0.5 mg-3 mg/3 ml Soln] 3 ml INHALATION RT-QID #120 ampul.neb Acetaminophen Tab [Tylenol] 500 mg PO Q6HR PRN tab PRN Reason: Fever and/ or Mild Pain Fluticasone/Salmeterol [Advair 250-50 Diskus] 1 puff INHALATION RT-BID Discharge Medication List Clopidogrel Bisulfate [Plavix] 75 mg PO DAILY 12/06/18 [History] Cyclobenzaprine [Flexeril] 10 mg PO TID PRN 12/27/18 [History] Nitroglycerin Sl Tabs [Nitrostat] 0.4 mg SUBLINGUAL Q5M PRN tab 12/28/18 [Rx] Famotidine [Pepcid] 20 mg PO DAILY #20 tab 03/11/19 [Rx] Albuterol Sulfate [Proair Hfa] 1 puff INHALATION RT-Q6H PRN 04/09/19 [History] Carvedilol [Coreg] 6.25 mg PO BID-W/MEALS #60 tab 04/12/19 [Rx] Lisinopril [Zestril] 5 mg PO DAILY #30 tab 04/12/19 [Rx] ALPRAZolam [Xanax] 2 mg PO DAILY PRN 05/01/19 [History] Enoxaparin [Lovenox] 40 mg SQ BID 05/01/19 [History] HYDROmorphone HCL [Dilaudid] 8 mg PO TID 05/01/19 [History] Sucralfate [Carafate] 1 gram PO DAILY 05/01/19 [History] Furosemide [Lasix] 40 mg PO DAILY PRN 05/11/19 [History] Acetaminophen Tab [Tylenol] 500 mg PO Q6HR PRN tab 05/14/19 [Rx] Cefuroxime Axetil [Ceftin] 500 mg PO BID 3 Days #6 tab 05/14/19 [Rx] Ipratropium-Albuterol Nebulize [Duoneb 0.5 mg-3 mg/3 ml Soln] 3 ml INHALATION RT-QID #120 ampul.neb 05/14/19 [Rx] Fluticasone/Salmeterol [Advair 250-50 Diskus] 1 puff INHALATION RT-BID 05/17/19 [History] Follow up Appointment(s)/Referral(s): Carissa Castro MD [Primary Care Provider] - 05/25/19 3:00 pm Patient Instructions/Handouts: Paresthesia (GEN) Activity/Diet/Wound Care/Special Instructions: Activity increase as tolerated follow up with neurology follow up with outpatient occupational physical therapy of the right wrist (script provided) Okay and clear to go for physical therapy continue current diet Discharge Disposition: HOME SELF-CARE
== END 2019-05-19 16:20 | disposition home or self-care (01) ==
LOC: EC 20:52 → 4SSUR 05-18 01:04
PROVIDERS: ADMIT Hospitalist; ATTEND Hospitalist
DX: R53.1 Weakness (principal); F32.9 Major depressive disorder, single episode, unspecified; F41.9 Anxiety disorder, unspecified; J44.9 Chronic obstructive pulmonary disease, unspecified; M19.90 Unspecified osteoarthritis, unspecified site; R53.81 Other malaise; G89.4 Chronic pain syndrome; I42.9 Cardiomyopathy, unspecified; D69.1 Qualitative platelet defects; E87.5 Hyperkalemia; T46.4X5A Adverse effect of angiotensin-converting-enzyme inhibitors, initial encounter; Z98.84 Bariatric surgery status; Z87.891 Personal history of nicotine dependence; Z88.6 Allergy status to analgesic agent; Z88.8 Allergy status to other drugs, medicaments and biological substances; Z79.02 Long term (current) use of antithrombotics/antiplatelets; Z79.891 Long term (current) use of opiate analgesic; Z79.899 Other long term (current) drug therapy; Z90.49 Acquired absence of other specified parts of digestive tract; Z89.611 Acquired absence of right leg above knee; Z89.512 Acquired absence of left leg below knee; Z91.81 History of falling
CPT/HCPCS: 96376 ×2; 96372 ×2; 96375; 96374; 99285; 36415 ×2; 94640 ×4; 93005; 97162; 97166; 80053; 80048; 84443; 82330; 82607; 83735; 84100; 84132 ×2; 85025 ×2; 83036; 70551; 72141; G0378 ×2; J2060; J2270 ×2; J1650 ×2

== ENCOUNTER 2019-06-02 20:14 | Inpatient (IN) | payer MEDICARE, OTHER ==
[2019-06-02] MEDS ORDERED: ONDANSETRON 4 MG/2 ML VIAL IVP STA (21:21)
[2019-06-02] MEDS ORDERED: IPRATROPIUM 0.5 MG/2.5 ML NEBU INHALATION STA (21:22)
[2019-06-02] MEDS ORDERED: HYDROmorphone 1 MG/ML 1 ML SYRINGE IVP STA (21:22)
[2019-06-02] MEDS ORDERED: ALBUTEROL NEBULIZED (CONC) 5 MG, SODIUM CHLORIDE 0.9% NEBULIZ 3 ML INHALATION STA ×2 (21:22)
[2019-06-02] MEDS ORDERED: IPRATROPIUM-ALBUTEROL 3 ML NEB INHALATION STA (21:24)
[2019-06-02] MEDS ORDERED: ALBUTEROL NEBULIZED 2.5 MG/3 ML INHALATION STA (21:24)
[2019-06-02 21:42] LABS: Basophils % (A) 0 %; Eosinophils # (A) 0.1 k/uL (0-0.7); Eosinophils % (A) 2 %; HCT 33.2 % (34.0-46.0); HGB 10.3 gm/dL (11.4-16.0); Hypochromasia Slight; Lymphocytes # (A) 0.8 k/uL (1.0-4.8); Lymphocytes % (A) 13 %; MCH 30.8 pg (25.0-35.0); MCHC 31.1 g/dL (31.0-37.0); MCV 98.8 fL (80.0-100.0); Macrocytosis Slight; Mean Platelet Volume 7.2; Monocytes # (A) 0.3 k/uL (0-1.0); Monocytes % (A) 5 %; Neutrophils # (A) 4.5 k/uL (1.3-7.7); Neutrophils % (A) 79 %; Platelet Count 274 k/uL (150-450); RBC 3.36 m/uL (3.80-5.40); RDW 15.7 % (11.5-15.5); WBC 5.8 k/uL (3.8-10.6)
[2019-06-02 21:50] LABS: Partial Thromboplastin Time 25.4 sec (22.0-30.0); Prothrombin Time 10.4 sec (9.0-12.0)
[2019-06-02 22:01] LABS: Albumin 3.5 g/dL (3.5-5.0); Calcium 8.9 mg/dL (8.4-10.2); Magnesium 2.2 mg/dL (1.6-2.3); Total Bilirubin 0.3 mg/dL (0.2-1.3); Total Protein 6.7 g/dL (6.3-8.2)
--- NOTE | 2019-06-02 22:51 | XR ---
EXAM: XR Chest, 2 Views CLINICAL HISTORY: ITS.REASON XR Reason: Chest Pain TECHNIQUE: Frontal and lateral views of the chest. COMPARISON: Chest radiograph on 05/11/2019 FINDINGS: Hardware: None. Lungs/pleura: Increased bibasilar opacities. Small bilateral pleural effusions. Possible mild pulmonary vasculature congestion. Heart/mediastinum: Stable mild enlargement of the cardiac silhouette. Soft tissues: Unremarkable. Bones: No acute fracture. Upper abdomen: Normal. IMPRESSION: Small bilateral pleural effusions with atelectasis versus pneumonia at the left lung base. Probable mild atelectasis at the right lung base. Possible mild pulmonary vasculature congestion.
--- NOTE | 2019-06-02 23:08 | ED ---
Chest Pain HPI - General Source: patient, family Mode of arrival: wheelchair Limitations: no limitations <Sindhu Hernandez - Last Filed: 06/03/19 01:41> <Hannah Villalba - Last Filed: 06/03/19 13:20> - General Chief Complaint: Chest Pain Stated Complaint: L side pain, MYAH Time Seen by Provider: 06/02/19 20:54 - History of Present Illness Initial Comments: 49-year-old female patient presents to the emergency department today for evaluation of chest pain and shortness of breath. Patient states she's been beasley ving symptoms for the last 3 days but they have been gradually worsening. Patient states that today the pain became unbearable so she presented here for further evaluation. Patient states she does have a slight cough but denies any sputum production. States that she has been short of breath with and without the pain. Patient states the chest pain has been constant but does wax and wane. She denies intermittent episodes of diarrhea as well. She denies any hematochezia, melena, or hematemesis. Denies any fever but states she has been chilled. Patient denies any recent rash, back pain, numbness, tingling, dizziness, weakness, hematuria, dysuria, urinary urgency, urinary frequency, headache, visual changes, or any other complaints. (Sindhu Hernandez) - Related Data Home Medications Medication Instructions Recorded Confirmed Clopidogrel Bisulfate [Plavix] 75 mg PO DAILY 12/06/18 06/02/19 Cyclobenzaprine [Flexeril] 10 mg PO TID PRN 12/27/18 06/02/19 Albuterol Sulfate [Proair Hfa] 1 puff INHALATION RT-Q6H PRN 04/09/19 06/02/19 ALPRAZolam [Xanax] 2 mg PO DAILY PRN 05/01/19 06/02/19 Enoxaparin [Lovenox] 40 mg SQ BID 05/01/19 06/02/19 HYDROmorphone HCL [Dilaudid] 8 mg PO TID 05/01/19 06/02/19 Sucralfate [Carafate] 1 gram PO DAILY PRN 05/01/19 06/02/19 Furosemide [Lasix] 40 mg PO DAILY PRN 05/11/19 06/02/19 Fluticasone/Salmeterol [Advair 1 puff INHALATION RT-BID 05/17/19 06/02/19 250-50 Diskus] Famotidine [Pepcid] 20 mg PO DAILY PRN 06/03/19 06/02/19 Previous Rx's Medication Instructions Recorded Nitroglycerin Sl Tabs [Nitrostat] 0.4 mg SUBLINGUAL Q5M PRN tab 12/28/18 Carvedilol [Coreg] 6.25 mg PO BID-W/MEALS #60 tab 04/12/19 Lisinopril [Zestril] 5 mg PO DAILY #30 tab 04/12/19 Acetaminophen Tab [Tylenol] 500 mg PO Q6HR PRN tab 05/14/19 Ipratropium-Albuterol Nebulize 3 ml INHALATION RT-QID #120 05/14/19 [Duoneb 0.5 mg-3 mg/3 ml Soln] ampul.neb Allergies Allergy/AdvReac Type Severity Reaction Status Date / Time ibuprofen Allergy Unknown Verified 06/03/19 01:54 trazodone AdvReac Chest Pain Verified 06/03/19 01:54 Review of Systems ROS Other: All systems not noted in ROS Statement are negative. <Sindhu Hernandez - Last Filed: 06/03/19 01:41> ROS Other: All systems not noted in ROS Statement are negative. <Hannah Villalba - Last Filed: 06/03/19 13:20> ROS Statement: Those systems with pertinent positive or pertinent negative responses have been documented in the HPI. EKG Findings - EKG Comments: EKG Findings:: EKG obtained at 2043 shows sinus tachycardia with a short AL interval. Ventricular rate is 121, AL interval 104, QRS duration 66, QTc 430, QTC 610. No evidence of ST elevation or depression <Sindhu Hernandez - Last Filed: 06/03/19 01:41> Past Medical History Past Medical History: Asthma, Heart Failure, COPD, CVA/TIA, Deep Vein Thrombosis (DVT), Neurologic Disorder, Osteoarthritis (OA), Pulmonary Embolus (PE), Renal Disease Additional Past Medical History / Comment(s): sticky platelet syndrome, bronchitis, anx/depression, falls renal failure, neuropathy History of Any Multi-Drug Resistant Organisms: ESBL Date of last positivie culture/infection: 10/15/18 ESBL MDRO Source:: Urine Past Surgical History: Cholecystectomy Additional Past Surgical History / Comment(s): ltBKA, left lower leg, aortic bypass right leg, right leg fasciotomy.pt stated had another vascular sx after the fasciotomy at [facility] unclear as to exactly what was done Rt AKA Past Anesthesia/Blood Transfusion Reactions: No Reported Reaction Additional Past Anesthesia/Blood Transfusion Reaction / Comment(s): pt stated has had a blood transfusion in past-no reaction. Past Psychological History: Anxiety, Depression Smoking Status: Former smoker Past Alcohol Use History: None Reported Past Drug Use History: None Reported - Past Family History Mother History Unknown: Yes Additional Family Medical History / Comment(s): MS, legally blind, cataracts Father Family Medical History: No Reported History Additional Family Medical History / Comment(s): Was younger when he , car accident <Sindhu Hernandez M - Last Filed: 06/03/19 01:41> General Exam Limitations: no limitations General appearance: alert, in no apparent distress, other (This is a well- developed, well-nourished adult female patient in no acute distress. Vital signs upon presentation are temperature 99.3F, pulse 120, respirations 18, blood pressure 143/99, pulse ox 100% on room air.) Eye exam: Present: normal appearance, PERRL, EOMI. Absent: scleral icterus, conjunctival injection, periorbital swelling ENT exam: Present: normal exam, normal oropharynx, mucous membranes moist Respiratory exam: Present: normal lung sounds bilaterally. Absent: respiratory distress, wheezes, rales, rhonchi, stridor Cardiovascular Exam: Present: normal rhythm, tachycardia, normal heart sounds. Absent: systolic murmur, diastolic murmur, rubs, gallop, clicks GI/Abdominal exam: Present: soft, tenderness (Left-sided abdominal tenderness), normal bowel sounds. Absent: distended, guarding, rebound, rigid Neurological exam: Present: alert, oriented X3, CN II-XII intact Psychiatric exam: Present: normal affect, normal mood Skin exam: Present: warm, dry, intact, normal color. Absent: rash <Sindhu Hernandez M - Last Filed: 06/03/19 01:41> Course Vital Signs 06/02/19 06/02/19 06/02/19 20:27 22:04 22:19 Temperature 99.3 F Pulse Rate 120 H 118 H 118 H Respiratory 18 Rate Blood Pressure 143/99 O2 Sat by Pulse 100 Oximetry 06/03/19 01:14 Temperature 98.6 F Pulse Rate 110 H Respiratory 14 Rate Blood Pressure 138/97 O2 Sat by Pulse 99 Oximetry Chest Pain MDM <Sindhu Hernandez - Last Filed: 06/03/19 01:41> - [facility] Two-view x-ray of the chest is obtained. Report was reviewed in its entirety. Impression by Dr. Mullins shows small bilateral pleural effusions with atelectasis versus pneumonia at the left lung base. Probable mild atelectasis at the right lung base. Possible mild pulmonary vascular congestion. CT abdomen and pelvis is obtained. Report was reviewed in its entirety. Impression by Dr. Amos shows nonspecific pleural based area of consolidation left lower lobe may be related to pneumonia. Bilateral pleural effusions. 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 Small amount of intraperitoneal free fluid. No free air. MDM: 49-year-old female patient with multiple complex medical issues presents to the emergency department today for evaluation of chest pain and shortness of breath. Physical examination did also reveal some left-sided abdominal tenderness. Lungs are clear to auscultation with good air movement. Labs reviewed and showed some chronic but stable renal failure, decreased hemoglobin, and elevated liver enzymes. Given abdominal pain it did perform CT of the abdomen and pelvis which showed no acute intra-abdominal abnormalities but did show evidence for left lower lobe pneumonia. Patient was admitted at the beginning of May and therefore will be started on IV antibiotics to cover hospital acquired pneumonia. Breathing treatments will be ordered and she'll be admitted to the hospital for further evaluation. Cardiology will be evaluated to rule out cardiac event. (Sindhu Hernandez) Disposition Decision to Admit Reason: Admit from Decision Date: 06/03/19 Decision Time: 00:27 <Sindhu Hernandez - Last Filed: 06/03/19 01:41> <Hannah Villalba - Last Filed: 06/03/19 13:20> Clinical Impression: Left lower lobe pneumonia, Chest pain, Bilateral pleural effusion Disposition: ADMITTED IP TO THIS [facility] Condition: Serious
--- NOTE | 2019-06-02 23:34 | CT ---
EXAM: CT Abdomen and Pelvis With Intravenous Contrast CLINICAL HISTORY: ITS.REASON CT Reason: Pain TECHNIQUE: Axial computed tomography images of the abdomen and pelvis with intravenous contrast. CTDI is 0.085, 0.085, 6.1, 6.3 mGy and DLP is 580. 7 mGy-cm. This CT exam was performed using one or more of the following dose reduction techniques: automated exposure control, adjustment of the mA and/or kV according to patient size, and/or use of iterative reconstruction technique. COMPARISON: Pain FINDINGS: Lung bases: Nonspecific pleural-based area of consolidation in the left lower lobe. Bibasilar atelectasis. Pleural space: Bilateral pleural effusions. ABDOMEN: Liver: Nonspecific periportal edema may be related to IV hydration. Liver is upper limits of normal in size. Gallbladder and bile ducts: Gallbladder surgically absent. Pancreas: Unremarkable. Spleen: Unremarkable. Adrenals: Stable indeterminate left adrenal nodule.. Kidneys and ureters: Atrophic right kidney with delayed nephrogram. No hydronephrosis. Stomach and bowel: Gastric bypass. Bowel is nondilated. PELVIS: Appendix: Not identified. Bladder: Unremarkable. Reproductive: Unremarkable as visualized. ABDOMEN and PELVIS: Intraperitoneal space: Small amount of intraperitoneal free fluid. No free air or loculated fluid collection. Bones/joints: No acute osseous abnormality. Soft tissues: Diffuse subcutaneous edema is suggestive of anasarca. Vasculature: Similar occlusion of the abdominal aorta just distal to the origin of the left renal artery, which appears patent. Trace reconstituted or recanalized flow is present in the right renal artery. The celiac, superior mesenteric, and inferior mesenteric arteries are patent. Occlusion of bilateral iliac arteries, similar to prior. Femoral bypass graft is not well evaluated. No abdominal aortic aneurysm. Lymph nodes: Unremarkable. IMPRESSION: Nonspecific pleural-based area of consolidation in the left lower lobe may be related to pneumonia. Bilateral pleural effusions. 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 Small amount of intraperitoneal free fluid. No free air.
[2019-06-03] MEDS ORDERED: ALBUTEROL NEBULIZED 2.5 MG/3 ML INHALATION PRN ×2 (00:32→06:56)
[2019-06-03] MEDS ORDERED: PIPERACILLIN-TAZOBACTAM 3.375 GM in SODIUM CHLORIDE 0.9% 100 ML IVPB STA (00:32)
[2019-06-03] MEDS ORDERED: PNEUMONIA PROTOCOL UTILIZED 1 EACH MISC PO PRN (00:32)
[2019-06-03] MEDS ORDERED: LEVOFLOXACIN 750MG-D5W PMX 750 MG in DEXTROSE/WATER 1 150ML.BAG IVPB STA (00:32)
[2019-06-03] MEDS ORDERED: IPRATROPIUM-ALBUTEROL 3 ML NEB INHALATION PRN (00:32)
[2019-06-03] MEDS: HYDROmorphone 1 MG/ML 1 ML SYRINGE IVP PRN ×6 (01:12→21:20)
[2019-06-03] MEDS: PIPERACILLIN-TAZOBACTAM 3.375 GM in SODIUM CHLORIDE 0.9% 100 ML IVPB SCH ×3 (03:13→21:19)
[2019-06-03] MEDS: SYMBICORT 80-4.5 MCG INHALER INHALATION SCH ×2 (07:55→19:39)
[2019-06-03] MEDS: IPRATROPIUM-ALBUTEROL 3 ML NEB INHALATION SCH ×4 (07:55→19:39)
[2019-06-03] MEDS ORDERED: IPRATROPIUM-ALBUTEROL 3 ML NEB INHALATION SCH (08:00)
[2019-06-03] MEDS ORDERED: ALBUTEROL NEBULIZED 2.5 MG/3 ML INHALATION SCH (08:00)
[2019-06-03] MEDS: CLOPIDOGREL 75 MG TAB PO SCH (08:23)
[2019-06-03] MEDS: FUROSEMIDE 10 MG/ML 2 ML VIAL IV SCH ×2 (08:23→17:04)
[2019-06-03] MEDS: CARVEDILOL 6.25 MG TAB PO SCH ×2 (08:23→17:04)
[2019-06-03] MEDS: LISINOPRIL 5 MG TAB PO SCH (08:23)
[2019-06-03] MEDS: ENOXAPARIN 40 MG/0.4 ML SYRINGE SQ SCH ×2 (08:24→21:21)
--- NOTE | 2019-06-03 08:42 | P.CRDCN ---
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 She follows in the office with Dr. Gary. We have been asked to see her in consultation secondary to chest pain and shortness of breath. She states for the previous 3 days she has noticed an increased shortness of breath associated with a tight sensation in the left precordial region. She has been using her breathing treatments regularly at home without much relief. She states the tightness in her chest comes when she is having a difficult time breathing. She denies radiation of any discomfort arm, back, neck or jaw. She denies associated palpitations, nausea, vomiting or diaphoresis. EKG reveals sinus mechanism with no acute ST or T wave abnormalities noted. Chest x-ray reveals small bilateral pleural effusions with atelectasis at the left lung base. Mild pulmonary vascular congestion noted. Laboratory data reviewed, WBC 5.8, hemoglobin 10.3, platelets 274, sodium 141, potassium 5.0, creatinine 1.19, magnesium 2.2, cardiac enzymes negative 2, proBNP 33,400. Current cardiac medications include carvedilol 6.25 mg twice a day, Plavix 75 mg daily, Lovenox 40 mg subcu twice a day, Lasix 40 mg daily as needed and lisinopril 5 mg daily. Most recent echocardiogram obtained April 2019 reveals severely impaired LV systolic function with ejection fraction less than 20%, global hypokinesia, trivial pericardial effusion, mild TR and mild MR. At the time of my exam: CONSTITUTIONAL: Denies fever. Denies chills. EYES: Denies blurred vision. Denies vision changes. Denies eye pain. EARS, NOSE, MOUTH & THROAT: Denies headache. Denies sore throat. Denies ear pain. CARDIOVASCULAR: Complains of chest tightness. Complains of shortness of breath. Denies orthopnea. Denies PND. Denies palpitations. RESPIRATORY: Denies cough. GASTROINTESTINAL: Denies abdominal pain. Denies diarrhea. Denies constipation. Denies nausea. Denies vomiting. MUSCULOSKELETAL: Denies myalgias. INTEGUMENTARY: Denies pruitis. Denies rash. NEUROLOGIC: Denies numbness. Denies tingling. Denies weakness. PSYCHIATRIC: Denies anxiety. Denies depression. ENDOCRINE: Denies fatigue. Denies weight change. Denies polydipsia. Denies polyurina. GENITOURINARY: Denies burning, hematuria or urgency with micturation. HEMATOLOGIC: Denies history of anemia. Denies bleeding. Blood pressure 135/99 heart rate 107 afebrile maintaining oxygen saturation on nasal cannula GENERAL: This is a 49-year-old -[place] female in no apparent distress at the time of my examination. HEENT: Head is atraumatic, normocephalic. Pupils are equal, round. Sclerae anicteric. Conjunctivae are clear. Mucous membranes of the mouth are moist. Neck is supple. There is no jugular venous distention. No carotid bruit is heard. LUNGS: Faint wheezes, no rales or rhonchi. No chest wall tenderness is noted on palpation or with deep breathing. HEART: Regular rate and rhythm without murmurs, rubs or gallops. S1 and S2 heard. ABDOMEN: Soft, nontender. Bowel sounds are heard. No organomegaly noted. EXTREMITIES: Left BKA, right AKA. No evidence of peripheral edema. VASCULAR: Radial pulses palpated, no evidence of clubbing. NEUROLOGIC: Patient is awake, alert and oriented x3. ASSESSMENT Acute on chronic systolic heart failure COPD Sticky platelet syndrome Nonischemic cardiomyopathy Chronic kidney disease Hypertension Former nicotine dependence, quit 2018 PLAN Symptoms related to combination of COPD and heart failure. Initiate on IV lasix 20 mg TID along with breathing treatments. Resume lovenox, plavix, lisinopril and coreg as previously ordered. Follow kidney function and electrolytes in the morning. Document accurate intake and output along with daily weights. Thank you kindly for this consultation. Nurse Practitioner note has been reviewed, I agree with a documented findings and plan of care. Patient was seen and examined. Past Medical History Past Medical History: Asthma, Heart Failure, COPD, CVA/TIA, Deep Vein Thrombosis (DVT), Neurologic Disorder, Osteoarthritis (OA), Pulmonary Embolus (PE), Renal Disease Additional Past Medical History / Comment(s): sticky platelet syndrome, bronchitis, anx/depression, falls renal failure, neuropathy. 2 CVA History of Any Multi-Drug Resistant Organisms: ESBL Date of last positivie culture/infection: 10/15/18 ESBL MDRO Source:: Urine Past Surgical History: Cholecystectomy Additional Past Surgical History / Comment(s): ltBKA, left lower leg, aortic bypass right leg, right leg fasciotomy.pt stated had another vascular sx after the fasciotomy at [facility] unclear as to exactly what was done Rt AKA Past Anesthesia/Blood Transfusion Reactions: No Reported Reaction Additional Past Anesthesia/Blood Transfusion Reaction / Comment(s): pt stated has had a blood transfusion in past-no reaction. Smoking Status: Former smoker - Past Family History Mother History Unknown: Yes Additional Family Medical History / Comment(s): MS, legally blind, cataracts Father Family Medical History: No Reported History Additional Family Medical History / Comment(s): Was younger when he , car accident Medications and Allergies Home Medications Medication Instructions Recorded Confirmed Type Clopidogrel Bisulfate [Plavix] 75 mg PO DAILY 12/06/18 06/02/19 History Cyclobenzaprine [Flexeril] 10 mg PO TID PRN 12/27/18 06/02/19 History Nitroglycerin Sl Tabs [Nitrostat] 0.4 mg SUBLINGUAL Q5M PRN tab 12/28/18 Rx Albuterol Sulfate [Proair Hfa] 1 puff INHALATION RT-Q6H PRN 04/09/19 06/02/19 History Carvedilol [Coreg] 6.25 mg PO BID-W/MEALS #60 tab 04/12/19 06/02/19 Rx Lisinopril [Zestril] 5 mg PO DAILY #30 tab 04/12/19 06/02/19 Rx ALPRAZolam [Xanax] 2 mg PO DAILY PRN 05/01/19 06/02/19 History Enoxaparin [Lovenox] 40 mg SQ BID 05/01/19 06/02/19 History HYDROmorphone HCL [Dilaudid] 8 mg PO TID 05/01/19 06/02/19 History Sucralfate [Carafate] 1 gram PO DAILY PRN 05/01/19 06/02/19 History Furosemide [Lasix] 40 mg PO DAILY PRN 05/11/19 06/02/19 History Acetaminophen Tab [Tylenol] 500 mg PO Q6HR PRN tab 07/06/19 07/25/19 Rx Ipratropium-Albuterol Nebulize 3 ml INHALATION RT-QID #120 05/14/19 06/02/19 Rx [Duoneb 0.5 mg-3 mg/3 ml Soln] ampul.neb Fluticasone/Salmeterol [Advair 1 puff INHALATION RT-BID 05/17/19 06/02/19 History 250-50 Diskus] Famotidine [Pepcid] 20 mg PO DAILY PRN 06/03/19 06/02/19 History Allergies Allergy/AdvReac Type Severity Reaction Status Date / Time ibuprofen Allergy Unknown Verified 06/03/19 01:54 trazodone AdvReac Chest Pain Verified 06/03/19 01:54 Physical Exam Vitals: Vital Signs Temp Pulse Pulse Resp BP BP Pulse Ox 06/03/19 08:18 120 H 06/03/19 08:00 112 H 06/03/19 07:38 107 H 18 135/99 100 06/03/19 04:00 97.5 F L 114 H 18 144/104 100 06/03/19 02:35 18 06/03/19 01:50 98.3 F 112 H 18 130/95 98 06/03/19 01:14 98.6 F 110 H 14 138/97 99 06/02/19 22:19 118 H 06/02/19 22:04 118 H 06/02/19 20:27 99.3 F 120 H 18 143/99 100 Intake and Output 06/02/19 06/03/19 06/03/19 22:59 06:59 14:59 Intake Total 350 240 Balance 350 240 Intake: IV 110 0.9 110 Oral 240 240 Other: # Voids 2 Weight 43.998 kg Results 06/02/19 21:19 06/02/19 21:19 Cardiac Enzymes 06/02/19 06/02/19 06/03/19 Range/Units 21:19 21:19 02:27 AST 107 H (14-36) U/L Troponin I 0.021 0.024 (0.000-0.034) ng/mL Coagulation 06/02/19 Range/Units 21:19 PT 10.4 (9.0-12.0) sec APTT 25.4 (22.0-30.0) sec CBC 06/02/19 Range/Units 21:19 WBC 5.8 (3.8-10.6) k/uL RBC 3.36 L (3.80-5.40) m/uL Hgb 10.3 L (11.4-16.0) gm/dL Hct 33.2 L (34.0-46.0) % Plt Count 274 (150-450) k/uL Comprehensive Metabolic Panel 06/02/19 Range/Units 21:19 Sodium 141 (137-145) mmol/L Potassium 5.0 (3.5-5.1) mmol/L Chloride 115 H (98-107) mmol/L Carbon Dioxide 17 L (22-30) mmol/L BUN 19 H (7-17) mg/dL Creatinine 1.19 H (0.52-1.04) mg/dL Glucose 151 H (74-99) mg/dL Calcium 8.9 (8.4-10.2) mg/dL AST 107 H (14-36) U/L ALT 60 H (9-52) U/L Alkaline Phosphatase 104 (38-126) U/L Total Protein 6.7 (6.3-8.2) g/dL Albumin 3.5 (3.5-5.0) g/dL Current Medications Generic Name Dose Route Start Last Admin Trade Name Freq PRN Reason Stop Dose Admin Albuterol Sulfate 2.5 mg 06/03/19 06:56 Ventolin Nebulized INHALATION RT-Q6H PRN Shortness Of Breath Albuterol/Ipratropium 3 ml 06/03/19 00:32 Duoneb 0.5 Mg-3 Mg/3 Ml Soln INHALATION RT-Q4H PRN shortness of breath Albuterol/Ipratropium 3 ml 06/03/19 08:00 06/03/19 07:55 Duoneb 0.5 Mg-3 Mg/3 Ml Soln INHALATION 3 ml RT-QID DEIRDRE Administration Budesonide/Formoterol Fumarate 2 puff 06/03/19 08:00 06/03/19 07:55 Symbicort 80-4.5 Mcg Inhaler INHALATION 2 puff RT-BID DEIRDRE Administration Carvedilol 6.25 mg 06/03/19 07:30 06/03/19 08:23 Coreg PO 6.25 mg BID-W/MEALS DEIRDRE Administration Clopidogrel Bisulfate 75 mg 06/03/19 09:00 06/03/19 08:23 Plavix PO 75 mg DAILY DEIRDRE Administration Enoxaparin Sodium 40 mg 06/03/19 09:00 06/03/19 08:24 Lovenox SQ 40 mg BID DEIRDRE Administration Furosemide 20 mg 06/03/19 08:00 06/03/19 08:23 Lasix IV 20 mg Q8HR DEIRDRE Administration Hydromorphone HCl 1 mg 06/03/19 00:37 06/03/19 05:28 Dilaudid IVP 1 mg Q4HR PRN Administration Pain Levofloxacin 750 mg/ IV 150 mls @ 100 mls/hr 06/04/19 03:00 Solution IVPB 06/14/19 03:01 Q24H DEIRDRE Piperacillin Sod/Tazobactam 100 mls @ 25 mls/hr 06/03/19 06:00 06/03/19 03:13 Sod 3.375 gm/ Sodium Chloride IVPB Not Given Q8H DEIRDRE Lisinopril 5 mg 06/03/19 09:00 06/03/19 08:23 Zestril PO 5 mg DAILY DEIRDRE Administration Miscellaneous Information 1 each 06/03/19 00:32 Pneumonia Protocol Utilized PO ONCE PRN Per Protocol Sodium Chloride 10 ml 06/03/19 09:00 Saline Flush IV BID DEIRDRE Intake and Output 06/02/19 06/03/19 06/03/19 22:59 06:59 14:59 Intake Total 350 240 Balance 350 240 Intake: IV 110 0.9 110 Oral 240 240 Other: # Voids 2 Weight 43.998 kg 06/02/19 21:19 06/02/19 21:19
--- NOTE | 2019-06-03 14:32 | P.HPIM ---
History of Present Illness This is a pleasant 49 years old female with past medical history of asthma, heart failure, COPD, CVA/TIA, DVT , pulmonary embolism, osteoarthritis, sticky platelet syndrome, anxiety depression, falls, neuropathy. she is status post right AKA and left BKA and she uses a wheelchair at baseline. pt presents with chest pain and tightness below her left breast for two days duration associated with some coughing and dyspnea as per pt. then described by the patient is sick wheezing radiating to the back increased by breathing and coughing Patient is slightly tachycardic 110 220 with her blood pressure is 80/62. Afebrile. Labs showing WBC 5.8K, hemoglobin 10.3, platelets 274. INR 1.0. Creatinine 1.1, electrolytes within normal limits. Troponin is 0.0-1 and 0.0-4 [place] [address] [address] 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 Chest x-ray: Pleural effusion with possible pneumonia In the emergency room patient received bronchodilators, pain medication, she was started on Levaquin and Zosyn. IV Lasix. Review of Systems CONSTITUTIONAL: No fever, no malaise, no fatigue. HEENT: No recent visual problems or hearing problems. Denied any sore throat. CARDIOVASCULAR: No orthopnea, PND, no palpitations, no syncope. PULMONARY: No shortness of breath, no cough, no hemoptysis. GASTROINTESTINAL: No diarrhea, no nausea, no vomiting, no abdominal pain. Normoactive bowel sounds. NEUROLOGICAL: No headaches, no weakness, no numbness. HEMATOLOGICAL: Denies any bleeding or petechiae. GENITOURINARY: Denies any burning micturition, frequency, or urgency. MUSCULOSKELETAL/RHEUMATOLOGICAL: Denies any joint pain, swelling, or any muscle pain. ENDOCRINE: Denies any polyuria or polydipsia. Past Medical History Past Medical History: Asthma, Heart Failure, COPD, CVA/TIA, Deep Vein Thrombosis (DVT), Neurologic Disorder, Osteoarthritis (OA), Pulmonary Embolus (PE), Renal Disease Additional Past Medical History / Comment(s): sticky platelet syndrome, bronchitis, anx/depression, falls renal failure, neuropathy. 2 CVA History of Any Multi-Drug Resistant Organisms: ESBL Date of last positivie culture/infection: 10/15/18 ESBL MDRO Source:: Urine Past Surgical History: Cholecystectomy Additional Past Surgical History / Comment(s): ltBKA, left lower leg, aortic bypass right leg, right leg fasciotomy.pt stated had another vascular sx after the fasciotomy at [facility] unclear as to exactly what was done Rt AKA Past Anesthesia/Blood Transfusion Reactions: No Reported Reaction Additional Past Anesthesia/Blood Transfusion Reaction / Comment(s): pt stated has had a blood transfusion in past-no reaction. Smoking Status: Former smoker - Past Family History Mother History Unknown: Yes Additional Family Medical History / Comment(s): MS, legally blind, cataracts Father Family Medical History: No Reported History Additional Family Medical History / Comment(s): Was younger when he , car accident Medications and Allergies Home Medications Medication Instructions Recorded Confirmed Type Clopidogrel Bisulfate [Plavix] 75 mg PO DAILY 12/06/18 06/02/19 History Cyclobenzaprine [Flexeril] 10 mg PO TID PRN 12/27/18 06/02/19 History Nitroglycerin Sl Tabs [Nitrostat] 0.4 mg SUBLINGUAL Q5M PRN tab 12/28/18 06/02/19 Rx Albuterol Sulfate [Proair Hfa] 1 puff INHALATION RT-Q6H PRN 04/09/19 06/02/19 History Carvedilol [Coreg] 6.25 mg PO BID-W/MEALS #60 tab 04/12/19 06/02/19 Rx Lisinopril [Zestril] 5 mg PO DAILY #30 tab 04/12/19 06/02/19 Rx ALPRAZolam [Xanax] 2 mg PO DAILY PRN 05/01/19 06/02/19 History Enoxaparin [Lovenox] 40 mg SQ BID 05/01/19 06/02/19 History HYDROmorphone HCL [Dilaudid] 8 mg PO TID 05/01/19 06/02/19 History Sucralfate [Carafate] 1 gram PO DAILY PRN 05/01/19 06/02/19 History Furosemide [Lasix] 40 mg PO DAILY PRN 05/11/19 06/02/19 History Acetaminophen Tab [Tylenol] 500 mg PO Q6HR PRN tab 05/14/19 06/02/19 Rx Ipratropium-Albuterol Nebulize 3 ml INHALATION RT-QID #120 05/14/19 06/02/19 Rx [Duoneb 0.5 mg-3 mg/3 ml Soln] ampul.neb Fluticasone/Salmeterol [Advair 1 puff INHALATION RT-BID 05/17/19 06/02/19 History 250-50 Diskus] Famotidine [Pepcid] 20 mg PO DAILY PRN 06/03/19 06/02/19 History Allergies Allergy/AdvReac Type Severity Reaction Status Date / Time ibuprofen Allergy Unknown Verified 06/03/19 01:54 trazodone AdvReac Chest Pain Verified 06/03/19 01:54 Physical Exam Vitals: Vital Signs Temp Pulse Pulse Resp BP BP Pulse Ox 06/03/19 11:56 118 H 06/03/19 11:43 116 H 06/03/19 11:40 97.5 F L 83 16 80/62 94 L 06/03/19 08:18 120 H 06/03/19 08:00 112 H 107 H 18 06/03/19 07:38 107 H 18 135/99 100 06/03/19 04:00 97.5 F L 114 H 18 144/104 100 06/03/19 02:35 18 06/03/19 01:50 98.3 F 112 H 18 130/95 98 06/03/19 01:14 98.6 F 110 H 14 138/97 99 06/02/19 22:19 118 H 06/02/19 22:04 118 H 06/02/19 20:27 99.3 F 120 H 18 143/99 100 Intake and Output 06/02/19 06/03/19 06/03/19 22:59 06:59 14:59 Intake Total 350 480 Output Total 600 Balance 350 -120 Intake: IV 110 0.9 110 Oral 240 480 Output: Urine 600 Other: Voiding Method Bedpan # Voids 2 Weight 43.998 kg GENERAL: The patient is alert and oriented x3, not in any acute distress. Well developed, well nourished. HEENT: Pupils are round and equally reacting to light. EOMI. No scleral icterus. No conjunctival pallor. Normocephalic, atraumatic. No pharyngeal erythema. No thyromegaly. CARDIOVASCULAR: S1 and S2 present. No murmurs, rubs, or gallops. PULMONARY: Chest is clear to auscultation, no wheezing or crackles. ABDOMEN: Soft, nontender, nondistended, normoactive bowel sounds. No palpable organomegaly. MUSCULOSKELETAL: No joint swelling or deformity. EXTREMITIES: No cyanosis, clubbing, or pedal edema. NEUROLOGICAL: Gross neurological examination did not reveal any focal deficits. SKIN: No rashes. Results CBC & Chem 7: 06/02/19 21:19 06/02/19 21:19 Labs: Abnormal Lab Results - Last 24 Hours (Table) 06/02/19 06/02/19 Range/Units 21:19 21:19 RBC 3.36 L (3.80-5.40) m/uL Hgb 10.3 L (11.4-16.0) gm/dL Hct 33.2 L (34.0-46.0) % RDW 15.7 H (11.5-15.5) % Lymphocytes # 0.8 L (1.0-4.8) k/uL Chloride 115 H (98-107) mmol/L Carbon Dioxide 17 L (22-30) mmol/L BUN 19 H (7-17) mg/dL Creatinine 1.19 H (0.52-1.04) mg/dL Glucose 151 H (74-99) mg/dL AST 107 H (14-36) U/L ALT 60 H (9-52) U/L Amylase 127 H (30-110) U/L Thrombosis Risk Factor Assmnt - Choose All That Apply Each Factor Represents 1 point: Age 41-60 years Each Risk Factor Represents 3 Points: History of DVT/PE Thrombosis Risk Factor Assessment Total Risk Factor Score: 4 Thrombosis Risk Factor Assessment Level: Moderate Risk Assessment and Plan Assessment: Acute congestive Heart failure with ejection fraction less than 20% Acute COPD exacerbation, with possible pneumonia Chronic pain syndrome, continued on Dilaudid on outpatient basis History of CVA History of DVT/PE on Lovenox Osteoarthritis Sticky platelet syndrome History of anxiety and depression History of falls Plan: This is a pleasant 49 years old female who presents with dyspnea suspicious for CHF and COPD exacerbation. Continue with her diuretic, pain management. Bronchodilator on steroids. Continue with antibiotics. Call pulmonary consult Labs and medication were reviewed.. Continue same treatment. Continue with symptomatic treatment. Resume home medication. Monitor lytes and vitals. DVT and GI prophylaxis. Further recommendations of the clinical course of the patient DVT prophylaxis: Subcutaneous Lovenox GI Prophylaxis: Pepcid Prognosis is guarded
[2019-06-03] MEDS: FAMOTIDINE 20 MG/2 ML VIAL IV SCH (17:03)
--- NOTE | 2019-06-03 17:28 | P.CNPUL ---
History of Present Illness Consult date: 06/03/19 Reason for consult: dyspnea, chest pain History of present illness: 49-year-old female patient came in to the ED because of chest pain and tightness mainly over the left precordial area that's been going on for the past 2 days in addition to that she was having some increased cough and shortness of breath and wheezing. The pain was radiating to her back especially with taking deep breath. She was quite tachycardic with a heart rate above 100. The blood pressure was low at the time of admission with a BP of 80/62. She was afebrile. White cell count was 5.8. Troponin was negative. ProBNP level was 33,000. Her EKG showed normal sinus mechanism without any acute ST segment abnormalities. Chest X and showed small bilateral pleural effusion and some infiltration/atelectasis in left lung base. Echocardiogram from April 2019 showed impaired LV with an ejection fraction of 20% suggestive of global hypokinesis and trivial pericardial effusion and mild TR and mild MR. Also computed tomography scan of the abdomen was done in the ED that showed some nonspecific pleural-based consolidation of the left lower lobe in addition to bilateral pleural effusions. This was consistent with pneumonia and the patient was started on broad-spectrum antibiotics utilizing a combination of Zosyn and Levaquin. This patient was in the hospital for shortness of breath back in May 2019. Specifically I saw her in consultation 05/12/2019 for shortness of breath. Back then she had presented with history of congestion heart failure and ejection fraction of less than 20%. 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 She has chronic pain, chronic anxiety, chronic depression with no clear- cut history of COPD. During her earlier hospitalization, the patient had some increased pulmonary edema and she was diuresed with IV Lasix and she felt better and she was discharged home. Review of Systems Constitutional: Reports lethargy, Reports weakness, Reports weight loss, she has chronic pain syndrome maintained on Dilaudid 8 mg by mouth 3 times a day Eyes: denies blurred vision, denies bulging eye, denies decreased vision Ears: deny: decreased hearing, ear discharge, earache, tinnitus Ears, nose, mouth and throat: Denies headache, Denies sore throat Cardiovascular: Reports decreased exercise tolerance, Reports dyspnea on exertion, Reports shortness of breath, and reports pain along the left chest area radiating to the back Respiratory: Reports dyspnea, chest pain as discussed above and she has chronic exertional dyspnea. Gastrointestinal: Reports as per HPI Genitourinary: Reports as per HPI Musculoskeletal: Reports as per HPI (Patient has bilateral amputation below the knee on the left [id number] on the right) Musculoskeletal: absent: as per HPI (The patient has amputations bilaterally. No significant edema in the upper thighs.) Integumentary: Denies pruritus, Denies rash Neurological: Reports as per HPI, history of falls Psychiatric: Reports as per HPI Endocrine: Reports as per HPI Hematologic/Lymphatic: Reports as per HPI, the patient has hypercoagulability and sticky platelet syndrome, maintained on anticoagulation with Lovenox 40 mg subcu every 12 hours. Allergic/Immunologic: Reports as per HPI Infectious history of ESBL producing gram-negative infections Past Medical History Past Medical History: Asthma, Heart Failure, COPD, CVA/TIA, Deep Vein Thrombosis (DVT), Neurologic Disorder, Osteoarthritis (OA), Pulmonary Embolus (PE), Renal Disease Additional Past Medical History / Comment(s): sticky platelet syndrome, bronchitis, anx/depression, falls renal failure, neuropathy. 2 CVA History of Any Multi-Drug Resistant Organisms: ESBL Date of last positivie culture/infection: 10/15/18 ESBL MDRO Source:: Urine Past Surgical History: Cholecystectomy Additional Past Surgical History / Comment(s): ltBKA, left lower leg, aortic bypass right leg, right leg fasciotomy.pt stated had another vascular sx after the fasciotomy at [facility] unclear as to exactly what was done Rt AKA Past Anesthesia/Blood Transfusion Reactions: No Reported Reaction Additional Past Anesthesia/Blood Transfusion Reaction / Comment(s): pt stated has had a blood transfusion in past-no reaction. Smoking Status: Former smoker - Past Family History Mother History Unknown: Yes Additional Family Medical History / Comment(s): MS, legally blind, cataracts Father Family Medical History: No Reported History Additional Family Medical History / Comment(s): Was younger when he , car accident Medications and Allergies Home Medications Medication Instructions Recorded Confirmed Type Clopidogrel Bisulfate [Plavix] 75 mg PO DAILY 12/06/18 06/02/19 History Cyclobenzaprine [Flexeril] 10 mg PO TID PRN 12/27/18 06/02/19 History Nitroglycerin Sl Tabs [Nitrostat] 0.4 mg SUBLINGUAL Q5M PRN tab 12/28/18 06/02/19 Rx Albuterol Sulfate [Proair Hfa] 1 puff INHALATION RT-Q6H PRN 04/09/19 06/02/19 History Carvedilol [Coreg] 6.25 mg PO BID-W/MEALS #60 tab 04/12/19 06/02/19 Rx Lisinopril [Zestril] 5 mg PO DAILY #30 tab 04/12/19 06/02/19 Rx ALPRAZolam [Xanax] 2 mg PO DAILY PRN 05/01/19 06/02/19 History Enoxaparin [Lovenox] 40 mg SQ BID 05/01/19 06/02/19 History HYDROmorphone HCL [Dilaudid] 8 mg PO TID 05/01/19 06/02/19 History Sucralfate [Carafate] 1 gram PO DAILY PRN 05/01/19 06/02/19 History Furosemide [Lasix] 40 mg PO DAILY PRN 05/11/19 06/02/19 History Acetaminophen Tab [Tylenol] 500 mg PO Q6HR PRN tab 05/14/19 06/02/19 Rx Ipratropium-Albuterol Nebulize 3 ml INHALATION RT-QID #120 05/14/19 06/02/19 Rx [Duoneb 0.5 mg-3 mg/3 ml Soln] ampul.neb Fluticasone/Salmeterol [Advair 1 puff INHALATION RT-BID 05/17/19 06/02/19 History 250-50 Diskus] Famotidine [Pepcid] 20 mg PO DAILY PRN 06/03/19 06/02/19 History Allergies Allergy/AdvReac Type Severity Reaction Status Date / Time ibuprofen Allergy Unknown Verified 06/03/19 01:54 trazodone AdvReac Chest Pain Verified 06/03/19 01:54 Physical Exam Vitals: Vital Signs Temp Pulse Pulse Resp BP BP BP 06/03/19 15:08 98.1 F 88 18 99/69 06/03/19 12:00 88 18 06/03/19 11:56 118 H 06/03/19 11:43 116 H 06/03/19 11:40 97.5 F L 83 16 80/62 06/03/19 08:18 120 H 06/03/19 08:00 112 H 107 H 18 06/03/19 07:38 107 H 18 135/99 06/03/19 04:00 97.5 F L 114 H 18 144/104 06/03/19 02:35 18 06/03/19 01:50 98.3 F 112 H 18 130/95 06/03/19 01:14 98.6 F 110 H 14 138/97 06/02/19 22:19 118 H 06/02/19 22:04 118 H 06/02/19 20:27 99.3 F 120 H 18 143/99 Pulse Ox 06/03/19 15:08 98 06/03/19 12:00 06/03/19 11:56 06/03/19 11:43 06/03/19 11:40 94 L 06/03/19 08:18 06/03/19 08:00 06/03/19 07:38 100 06/03/19 04:00 100 06/03/19 02:35 06/03/19 01:50 98 06/03/19 01:14 99 06/02/19 22:19 06/02/19 22:04 06/02/19 20:27 100 Intake and Output 06/03/19 06/03/19 06/03/19 06:59 14:59 22:59 Intake Total 350 480 Output Total 600 Balance 350 -120 Intake: IV 110 0.9 110 Oral 240 480 Output: Urine 600 Other: Voiding Method Bedpan # Voids 2 Gen. appearance, comfortable likely distress Head exam was generally normal. There was no scleral icterus or corneal arcus. Mucous membranes were moist. Neck was supple and with jugular venous distension, thyromegaly, or carotid bruits. Carotids were easily palpable bilaterally. There was no adenopathy. Patient has some mild JVDs no goiter or neck masses this point in time. Lungs diminished breath sound bilaterally along with some limited bibasilar crackles. Cardiac exam revealed the PMI to be normally situated and sized. The rhythm was regular and no extrasystoles were noted during several minutes of auscultation. The first and second heart sounds were normal and physiologic splitting of the second heart sound was noted. There were no murmurs, rubs, clicks, or gallops. Abdominal exam revealed normal bowel sounds. The abdomen was soft, non-tender, and without masses, organomegaly, or appreciable enlargement of the abdominal aorta. Extremities revealed pneumonia dictation on the left [id number] and station of the right nose significant edema in the upper thighs Neurologically the patient is awake and alert and is no focal neurological deficits. Results - Laboratory Findings CBC and BMP: 06/02/19 21:06/02/19 21: PT/INR, D-dimer PT 10.4 sec (9.0-12.0) 06/02/19 21: INR 1.0 (<1.2) 06/02/19 21: Abnormal lab findings: Abnormal Labs 06/02/19 06/02/19 21:19 21:19 RBC 3.36 L Hgb 10.3 L Hct 33.2 L RDW 15.7 H Lymphocytes # 0.8 L Chloride 115 H Carbon Dioxide 17 L BUN 19 H Creatinine 1.19 H Glucose 151 H AST 107 H ALT 60 H Amylase 127 H - Diagnostic Findings Chest x-ray: image reviewed Assessment and Plan Plan: 1 left lower lobe pneumonia, with bilateral pleural effusion. The patient has a left lower lobe consolidation as evident on the CAT scan of the abdomen that showed the lung bases and there is clearly an infiltrative consolidation process in the left lung base. Currently on accommodation of Zosyn and Levaquin. 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 Obtain blood culture. Agree on the current antibiotic coverage. Outpatient medications have been resumed. We'll continue to follow.
[2019-06-04] MEDS: HYDROmorphone 1 MG/ML 1 ML SYRINGE IVP PRN ×5 (01:19→20:27)
[2019-06-04] MEDS ORDERED: LEVOFLOXACIN 750MG-D5W PMX 750 MG in DEXTROSE/WATER 1 150ML.BAG IVPB SCH (03:00)
[2019-06-04] MEDS: PIPERACILLIN-TAZOBACTAM 3.375 GM in SODIUM CHLORIDE 0.9% 100 ML IVPB SCH ×3 (05:15→21:01)
[2019-06-04 08:10] LABS: Albumin 2.7 g/dL (3.5-5.0); Bilirubin, Delta 0.4 mg/dL (0.0-0.2); Bilirubin,Unconjugated 0.1 mg/dL (0.0-1.1); Calcium 8.1 mg/dL (8.4-10.2); Potassium 4.7 mmol/L (3.5-5.1); Total Bilirubin 0.5 mg/dL (0.2-1.3); Total Protein 5.9 g/dL (6.3-8.2)
--- NOTE | 2019-06-04 08:36 | XR ---
EXAMINATION TYPE: XR chest 2V DATE OF EXAM: 06/04/2019 HISTORY: pneumonia. REFERENCE: Previous study dated 06/02/2019. FINDINGS: There is a worsening left lower lobe infiltrate. There is some patchy right-sided airspace disease. The heart is mildly enlarged. There is a left-sided effusion and a small right effusion. IMPRESSION: 1. WORSENING BIBASILAR AIRSPACE DISEASE. 2. SMALL, BILATERAL EFFUSIONS. 3. MILD CARDIOMEGALY
[2019-06-04] MEDS: CLOPIDOGREL 75 MG TAB PO SCH (09:09)
[2019-06-04] MEDS: CARVEDILOL 6.25 MG TAB PO SCH ×2 (09:09→20:26)
[2019-06-04] MEDS: ENOXAPARIN 40 MG/0.4 ML SYRINGE SQ SCH ×2 (09:09→20:26)
[2019-06-04] MEDS: LISINOPRIL 5 MG TAB PO SCH (09:09)
[2019-06-04] MEDS: FAMOTIDINE 20 MG/2 ML VIAL IV SCH (09:09)
[2019-06-04] MEDS: FUROSEMIDE 40 MG TAB PO SCH (09:09)
[2019-06-04] MEDS: SYMBICORT 80-4.5 MCG INHALER INHALATION SCH ×2 (09:58→21:03)
[2019-06-04] MEDS: IPRATROPIUM-ALBUTEROL 3 ML NEB INHALATION SCH ×4 (09:58→21:03)
[2019-06-04 11:42] LABS: Anisocytosis Slight; Basophils % (A) 0 %; Eosinophils # (A) 0.1 k/uL (0-0.7); Eosinophils % (A) 2 %; HCT 35.3 % (34.0-46.0); HGB 10.7 gm/dL (11.4-16.0); Hypochromasia Moderate; Lymphocytes # (A) 0.6 k/uL (1.0-4.8); Lymphocytes % (A) 9 %; MCH 31.3 pg (25.0-35.0); MCHC 30.4 g/dL (31.0-37.0); MCV 103.1 fL (80.0-100.0); Macrocytosis Slight; Mean Platelet Volume 8.2; Monocytes # (A) 0.6 k/uL (0-1.0); Monocytes % (A) 8 %; Neutrophils # (A) 5.6 k/uL (1.3-7.7); Neutrophils % (A) 80 %; Platelet Count 307 k/uL (150-450); RBC 3.43 m/uL (3.80-5.40); WBC 7.1 k/uL (3.8-10.6)
[2019-06-04 12:52] VITALS: BMI 17.4
[2019-06-04] MEDS ORDERED: ALBUTEROL NEBULIZED 2.5 MG/3 ML INHALATION PRN (15:09)
[2019-06-04] MEDS ORDERED: ACETAMINOPHEN TAB 325 MG TAB PO PRN (15:09)
--- NOTE | 2019-06-04 15:15 | P.PN ---
Subjective This is a pleasant 49 years old female with past medical history of asthma, heart failure, COPD, CVA/TIA, DVT , pulmonary embolism, osteoarthritis, sticky platelet syndrome, anxiety depression, falls, neuropathy. she is status post right AKA and left BKA and she uses a wheelchair at baseline. pt presents with chest pain and tightness below her left breast for two days duration associated with some coughing and dyspnea as per pt. then described by the patient is sick wheezing radiating to the back increased by breathing and coughing Patient is slightly tachycardic 110 220 with her blood pressure is 80/62. Afebrile. Labs showing WBC 5.8K, hemoglobin 10.3, platelets 274. INR 1.0. Creatinine 1.1, electrolytes within normal limits. Troponin is 0.0-1 and 0.0-4 [place] [address] [address] 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 Chest x-ray: Pleural effusion with possible pneumonia In the emergency room patient received bronchodilators, pain medication, she was started on Levaquin and Zosyn. IV Lasix. 06/04/2019 Patient is alert awake, she still can without difficulty. She does not look very tachypneic and she is breathing at a rate of 16-18. Per minute however patient states that breathing treatment is not helping her enough and want her to be increased from 4 times to 6 times per day. She still complaining of from the cystic wheezing pain in her chest and dyspnea. She went from some headache today. She is afebrile and blood pressure 96/68. She still on Dilaudid IV, she was and by mouth Dilaudid at home. Labs from today showing stable CBC however BMP showing a drop in sodium 141 down to 1:30, creatinine 1.1 up to 1.44, proBNP is significant cleared from 33,000+ down to 18,000+. Repeat chest x-ray showing worsening by basilar airspace disease. Her Lasix was lowered from 20 mg IV 3 times daily to 40 mg by mouth once daily By cardiology team. Patient remains on Zosyn and Levaquin. Tylenol is added. Review of systems CONSTITUTIONAL: No fever, no malaise, no fatigue. HEENT: No recent visual problems or hearing problems. Denied any sore throat. CARDIOVASCULAR: no palpitations, no syncope. PULMONARY: no hemoptysis. GASTROINTESTINAL: No diarrhea, no nausea, no vomiting, no abdominal pain. Normoactive bowel sounds. NEUROLOGICAL:no weakness, no numbness. HEMATOLOGICAL: Denies any bleeding or petechiae. GENITOURINARY: Denies any burning micturition, frequency, or urgency. MUSCULOSKELETAL/RHEUMATOLOGICAL: Denies any joint pain, swelling, or any muscle pain. ENDOCRINE: Denies any polyuria or polydipsia. Active Medications Generic Name Dose Route Start Last Admin Trade Name Freq PRN Reason Stop Dose Admin Albuterol Sulfate 2.5 mg 06/04/19 15:09 Ventolin Nebulized INHALATION RT-Q4H PRN Shortness Of Breath Albuterol/Ipratropium 3 ml 06/03/19 00:32 Duoneb 0.5 Mg-3 Mg/3 Ml Soln INHALATION RT-Q4H PRN shortness of breath Albuterol/Ipratropium 3 ml 06/03/19 08:00 06/04/19 15:07 Duoneb 0.5 Mg-3 Mg/3 Ml Soln INHALATION 3 ml RT-QID DEIRDRE Administration Budesonide/Formoterol Fumarate 2 puff 06/03/19 08:00 06/04/19 09:58 Symbicort 80-4.5 Mcg Inhaler INHALATION Not Given RT-BID DEIRDRE Carvedilol 6.25 mg 06/03/19 07:30 06/04/19 09:09 Coreg PO 6.25 mg BID-W/MEALS DEIRDRE Administration Clopidogrel Bisulfate 75 mg 06/03/19 09:00 06/04/19 09:09 Plavix PO 75 mg DAILY DEIRDRE Administration Enoxaparin Sodium 40 mg 06/03/19 09:00 06/04/19 09:09 Lovenox SQ 40 mg BID DEIRDRE Administration Famotidine 20 mg 06/03/19 15:00 06/04/19 09:09 Pepcid IV 20 mg DAILY DEIRDRE Administration Furosemide 40 mg 06/04/19 09:00 06/04/19 09:09 Lasix PO 40 mg DAILY DEIRDRE Administration Hydromorphone HCl 1 mg 06/03/19 00:37 06/04/19 14:23 Dilaudid IVP 1 mg Q4HR PRN Administration Pain Piperacillin Sod/Tazobactam 100 mls @ 25 mls/hr 06/03/19 06:00 06/04/19 14:32 Sod 3.375 gm/ Sodium Chloride IVPB 25 mls/hr Q8H DEIRDRE Administration Levofloxacin 750 mg 06/05/19 09:00 Levaquin PO Q48H DEIRDRE Lisinopril 5 mg 06/03/19 09:00 06/04/19 09:09 Zestril PO 5 mg DAILY DEIRDRE Administration Miscellaneous Information 1 each 06/03/19 00:32 Pneumonia Protocol Utilized PO ONCE PRN Per Protocol Sodium Chloride 10 ml 06/03/19 09:00 06/04/19 09:09 Saline Flush IV 10 ml BID DEIRDRE Administration Objective - Vital Signs Vital signs: Vital Signs Temp 98.1 F 06/04/19 11:25 Pulse 82 06/04/19 11:25 Resp 16 06/04/19 11:25 BP 96/68 06/04/19 11:25 Pulse Ox 99 06/04/19 11:25 Intake & Output 06/03/19 06/04/19 06/04/19 18:59 06:59 18:59 Intake Total 880 800 522 Output Total 600 1000 2500 Balance Weight 44.5 kg 44.5 kg Intake: Oral 880 800 522 Output: Urine 600 1000 2500 Other: Voiding Method Bedpan Bedpan Bedpan # Voids 1 1 - Exam GENERAL: The patient is alert and oriented x3, not in any acute distress. Well developed, well nourished. HEENT: Pupils are round and equally reacting to light. EOMI. No scleral icterus. No conjunctival pallor. Normocephalic, atraumatic. No pharyngeal erythema. No thyromegaly. CARDIOVASCULAR: S1 and S2 present. No murmurs, rubs, or gallops. PULMONARY: Chest is clear to auscultation, scattered expiratory wheezing, with harsh breath sounds especially in the lung base, more on the right ABDOMEN: Soft, nontender, nondistended, normoactive bowel sounds. No palpable organomegaly. MUSCULOSKELETAL: No joint swelling or deformity. EXTREMITIES: No cyanosis, clubbing, or pedal edema. NEUROLOGICAL: Gross neurological examination did not reveal any focal deficits. SKIN: No rashes. - Labs CBC & Chem 7: 06/04/19 08:45 06/04/19 06:57 Labs: Abnormal Lab Results - Last 24 Hours (Table) 06/04/19 06/04/19 Range/Units 06:57 08:45 RBC 3.43 L (3.80-5.40) m/uL Hgb 10.7 L (11.4-16.0) gm/dL MCV 103.1 H (80.0-100.0) fL MCHC 30.4 L (31.0-37.0) g/dL RDW 16.0 H (11.5-15.5) % Lymphocytes # 0.6 L (1.0-4.8) k/uL Sodium 130 L (137-145) mmol/L Carbon Dioxide 12 L (22-30) mmol/L BUN 23 H (7-17) mg/dL Creatinine 1.44 H (0.52-1.04) mg/dL Glucose 55 L (74-99) mg/dL Calcium 8.1 L (8.4-10.2) mg/dL Delta Bilirubin 0.4 H (0.0-0.2) mg/dL AST 54 H (14-36) U/L Total Protein 5.9 L (6.3-8.2) g/dL Albumin 2.7 L (3.5-5.0) g/dL Microbiology - Last 24 Hours (Table) 06/03/19 03:21 Blood Culture - Preliminary Blood No Growth after 24 hours 06/03/19 02:27 Blood Culture - Preliminary Blood No Growth after 24 hours Assessment and Plan Assessment: Acute congestive Heart failure with ejection fraction less than 20% Acute COPD exacerbation, with possible pneumonia Acute chest pain, pleuritic-like Acute kidney injury Acute hyponatremia Chronic pain syndrome, continued on Dilaudid on outpatient basis History of CVA History of DVT/PE on Lovenox Osteoarthritis Sticky platelet syndrome History of anxiety and depression History of falls Plan: This is a pleasant 49 years old female who presents with dyspnea suspicious for CHF and COPD exacerbation. Continue with her diuretic but lowered to 40 mg by mouth Lasix once daily, pain management. Bronchodilator on steroids. Continue with antibiotics. Pulmonary consult is appreciated. We'll follow the recommendation and mower sharpener recommendation as well. Tylenol is added. Incentive spirometry Labs and medication were reviewed.. Continue same treatment. Continue with symptomatic treatment. Resume home medication. Monitor lytes and vitals. DVT and GI prophylaxis. Further recommendations of the clinical course of the patient DVT prophylaxis: Subcutaneous Lovenox GI Prophylaxis: Pepcid Prognosis is guarded
[2019-06-05] MEDS: HYDROmorphone 1 MG/ML 1 ML SYRINGE IVP PRN ×6 (00:23→22:18)
[2019-06-05] MEDS: PIPERACILLIN-TAZOBACTAM 3.375 GM in SODIUM CHLORIDE 0.9% 100 ML IVPB SCH ×3 (05:18→21:56)
[2019-06-05] MEDS: CARVEDILOL 6.25 MG TAB PO SCH ×2 (07:55→21:56)
[2019-06-05 08:04] LABS: Basophils % (A) 0 %; Eosinophils # (A) 0.2 k/uL (0-0.7); Eosinophils % (A) 3 %; HCT 38.3 % (34.0-46.0); HGB 11.2 gm/dL (11.4-16.0); Hypochromasia Marked; Lymphocytes # (A) 0.6 k/uL (1.0-4.8); Lymphocytes % (A) 10 %; MCH 29.9 pg (25.0-35.0); MCHC 29.3 g/dL (31.0-37.0); Macrocytosis Slight; Mean Platelet Volume 7.1; Monocytes # (A) 0.6 k/uL (0-1.0); Monocytes % (A) 10 %; Neutrophils # (A) 4.5 k/uL (1.3-7.7); Neutrophils % (A) 75 %; Platelet Count 306 k/uL (150-450); RBC 3.76 m/uL (3.80-5.40); RDW 15.3 % (11.5-15.5); WBC 5.9 k/uL (3.8-10.6)
[2019-06-05 08:09] LABS: Albumin 2.8 g/dL (3.5-5.0); Bilirubin, Delta 0.3 mg/dL (0.0-0.2); Bilirubin,Unconjugated 0.1 mg/dL (0.0-1.1); Total Bilirubin 0.4 mg/dL (0.2-1.3); Total Protein 5.9 g/dL (6.3-8.2)
[2019-06-05] MEDS: FAMOTIDINE 20 MG/2 ML VIAL IV SCH (08:16)
[2019-06-05] MEDS: FUROSEMIDE 40 MG TAB PO SCH (08:16)
[2019-06-05] MEDS: ENOXAPARIN 40 MG/0.4 ML SYRINGE SQ SCH ×2 (08:16→21:56)
[2019-06-05] MEDS: LISINOPRIL 5 MG TAB PO SCH (08:16)
[2019-06-05] MEDS: LEVOFLOXACIN 750 MG TAB PO SCH (08:16)
[2019-06-05] MEDS: CLOPIDOGREL 75 MG TAB PO SCH (08:16)
[2019-06-05] MEDS: SYMBICORT 80-4.5 MCG INHALER INHALATION SCH ×2 (09:22→19:06)
[2019-06-05] MEDS: IPRATROPIUM-ALBUTEROL 3 ML NEB INHALATION SCH ×4 (09:22→19:06)
[2019-06-05] MEDS ORDERED: BUTALB/APAP/CAFF 50-325-40MG TAB PO ONE (16:18)
[2019-06-05 16:29] LABS: Calcium 8.4 mg/dL (8.4-10.2); Potassium 4.1 mmol/L (3.5-5.1)
--- NOTE | 2019-06-05 22:02 | P.PN ---
Subjective This is a pleasant 49 years old female with past medical history of asthma, heart failure, COPD, CVA/TIA, DVT , pulmonary embolism, osteoarthritis, sticky platelet syndrome, anxiety depression, falls, neuropathy. she is status post right AKA and left BKA and she uses a wheelchair at baseline. pt presents with chest pain and tightness below her left breast for two days duration associated with some coughing and dyspnea as per pt. then described by the patient is sick wheezing radiating to the back increased by breathing and coughing Patient is slightly tachycardic 110 220 with her blood pressure is 80/62. Afebrile. Labs showing WBC 5.8K, hemoglobin 10.3, platelets 274. INR 1.0. Creatinine 1.1, electrolytes within normal limits. Troponin is 0.0-1 and 0.0-4 [place] 0[place] 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 Chest x-ray: Pleural effusion with possible pneumonia In the emergency room patient received bronchodilators, pain medication, she was started on Levaquin and Zosyn. IV Lasix. 06/04/2019 Patient is alert awake, she still can without difficulty. She does not look very tachypneic and she is breathing at a rate of 16-18. Per minute however patient states that breathing treatment is not helping her enough and want her to be increased from 4 times to 6 times per day. She still complaining of from the cystic wheezing pain in her chest and dyspnea. She went from some headache today. She is afebrile and blood pressure 96/68. She still on Dilaudid IV, she was and by mouth Dilaudid at home. Labs from today showing stable CBC however BMP showing a drop in sodium 141 down to 1:30, creatinine 1.1 up to 1.44, proBNP is significant cleared from 33,000+ down to 18,000+. Repeat chest x-ray showing worsening by basilar airspace disease. Her Lasix was lowered from 20 mg IV 3 times daily to 40 mg by mouth once daily By cardiology team. Patient remains on Zosyn and Levaquin. Tylenol is added. 06/05/2019 Patient awake and lying in bed not in respiratory distress. She states that her dyspnea is improving slightly. She can talk with no difficulty. She still complains from chest pain and coughing. She is also complaining of from headache mainly in the occipital area, however patient is fully awake and oriented. No new weakness or numbness. Patient has history of recent weakness in her right upper extremity and to a lesser extent in her left upper extremity with some numbness. She was in the hospital and she was referred to neurologist Dr. Maria who told her she has neuropathy and she is scheduled for EMG as an outpatient. Patient was started occupational therapy for her upper extremity about 2 days ago. Vitas looks stable. Liver enzymes back to normal. NA is improving 13. to 135m creatinine still 1.4. Patient remains on the same antibiotics Zosyn and Levaquin. Objective - Vital Signs Vital signs: Vital Signs Temp 98 F 06/05/19 15:35 Pulse 74 06/05/19 15:35 Resp 17 06/05/19 15:35 BP 99/65 06/05/19 15:35 Pulse Ox 96 06/05/19 15:35 Intake & Output 06/04/19 06/05/19 06/05/19 18:59 06:59 18:59 Intake Total 522 125 Output Total 3800 2300 1400 Balance -3125 -2634 -7184 Weight 44.5 kg 41.5 kg Intake: Oral 522 125 Output: Urine 3800 2300 1400 Other: Voiding Method Bedpan Bedpan Bedpan # Voids 1 1 - Exam GENERAL: The patient is alert and oriented x3, not in any acute distress. Well developed, well nourished. HEENT: Pupils are round and equally reacting to light. EOMI. No scleral icterus. No conjunctival pallor. Normocephalic, atraumatic. No pharyngeal erythema. No th yromegaly. CARDIOVASCULAR: S1 and S2 present. No murmurs, rubs, or gallops. PULMONARY: Chest is clear to auscultation, scattered expiratory wheezing, with harsh breath sounds especially in the lung base, more on the right ABDOMEN: Soft, nontender, nondistended, normoactive bowel sounds. No palpable organomegaly. MUSCULOSKELETAL: No joint swelling or deformity. EXTREMITIES: No cyanosis, clubbing, or pedal edema. NEUROLOGICAL: Gross neurological examination did not reveal any focal deficits. SKIN: No rashes. - Labs CBC & Chem 7: 06/05/19 07:40 06/05/19 07:40 Labs: Abnormal Lab Results - Last 24 Hours (Table) 06/05/19 06/05/19 Range/Units 07:40 07:40 RBC 3.76 L (3.80-5.40) m/uL Hgb 11.2 L (11.4-16.0) gm/dL MCV 102.0 H (80.0-100.0) fL MCHC 29.3 L (31.0-37.0) g/dL Lymphocytes # 0.6 L (1.0-4.8) k/uL Delta Bilirubin 0.3 H (0.0-0.2) mg/dL Total Protein 5.9 L (6.3-8.2) g/dL Albumin 2.8 L (3.5-5.0) g/dL Microbiology - Last 24 Hours (Table) 06/03/19 03:21 Blood Culture - Preliminary Blood No Growth after 48 hours 06/03/19 02:27 Blood Culture - Preliminary Blood No Growth after 48 hours Assessment and Plan Assessment: Acute congestive Heart failure with ejection fraction less than 20% Acute COPD exacerbation, with possible pneumonia Acute chest pain, pleuritic-like Acute kidney injury Acute hyponatremia Peripheral neuropathy, in the right upper extremity and to lesser extent the left upper extremity . Pending EMG has an outpatient. She follows up with Dr. Maria Chronic pain syndrome, continued on Dilaudid on outpatient basis History of CVA History of DVT/PE on Lovenox Osteoarthritis Sticky platelet syndrome History of anxiety and depression History of falls Plan: This is a pleasant 49 years old female who presents with dyspnea suspicious for CHF and COPD exacerbation. Continue with her diuretic but lowered to 40 mg by mouth Lasix once daily, pain management. Bronchodilator on steroids. Continue with antibiotics. Pulmonary consult is appreciated. We'll follow the recommendation and regional extension service specialist recommendation as well. Tylenol is added. Incentive spirometry. Patient follow up with a neurologist as an outpatient for her neuropathy. Monitor sodium level and creatinine. Labs and medication were reviewed.. Continue same treatment. Continue with symptomatic treatment. Resume home medication. Monitor lytes and vitals. DVT and GI prophylaxis. Further recommendations of the clinical course of the patient DVT prophylaxis: Subcutaneous Lovenox GI Prophylaxis: Pepcid Prognosis is guarded
[2019-06-06] MEDS: HYDROmorphone 1 MG/ML 1 ML SYRINGE IVP PRN ×3 (02:56→11:50)
[2019-06-06] MEDS: PIPERACILLIN-TAZOBACTAM 3.375 GM in SODIUM CHLORIDE 0.9% 100 ML IVPB SCH (06:14)
[2019-06-06] MEDS: IPRATROPIUM-ALBUTEROL 3 ML NEB INHALATION SCH ×4 (06:59→21:20)
[2019-06-06] MEDS: SYMBICORT 80-4.5 MCG INHALER INHALATION SCH ×2 (06:59→21:20)
[2019-06-06] MEDS: FAMOTIDINE 20 MG/2 ML VIAL IV SCH (08:54)
[2019-06-06] MEDS: FUROSEMIDE 40 MG TAB PO SCH (08:54)
[2019-06-06] MEDS: LISINOPRIL 5 MG TAB PO SCH (08:54)
[2019-06-06] MEDS: CARVEDILOL 6.25 MG TAB PO SCH ×2 (08:54→18:30)
[2019-06-06] MEDS: ENOXAPARIN 40 MG/0.4 ML SYRINGE SQ SCH ×2 (08:54→20:37)
[2019-06-06] MEDS: LIDOCAINE 5% PATCH TOPICAL SCH (08:54)
[2019-06-06] MEDS: CLOPIDOGREL 75 MG TAB PO SCH (08:54)
[2019-06-06 12:04] LABS: Anisocytosis Slight; Basophils % (A) 0 %; Eosinophils # (A) 0.1 k/uL (0-0.7); Eosinophils % (A) 2 %; HGB 10.8 gm/dL (11.4-16.0); Hypochromasia Marked; Lymphocytes # (A) 0.7 k/uL (1.0-4.8); Lymphocytes % (A) 14 %; MCH 30.8 pg (25.0-35.0); MCV 102.6 fL (80.0-100.0); Macrocytosis Slight; Mean Platelet Volume 7.7; Monocytes # (A) 0.5 k/uL (0-1.0); Monocytes % (A) 9 %; Neutrophils # (A) 3.7 k/uL (1.3-7.7); Neutrophils % (A) 72 %; Platelet Count 366 k/uL (150-450); RBC 3.51 m/uL (3.80-5.40); RDW 16.3 % (11.5-15.5); WBC 5.1 k/uL (3.8-10.6)
[2019-06-06 12:05] LABS: Albumin 2.7 g/dL (3.5-5.0); Bilirubin, Delta 0.2 mg/dL (0.0-0.2); Total Bilirubin 0.2 mg/dL (0.2-1.3); Total Protein 5.6 g/dL (6.3-8.2)
--- NOTE | 2019-06-06 13:12 | P.PN ---
Subjective 49 years old female with past medical history of asthma, heart failure, COPD, CVA/TIA, DVT , pulmonary embolism, osteoarthritis, sticky platelet syndrome, anxiety depression, falls, neuropathy. she is status post right AKA and left BKA and she uses a wheelchair at baseline. pt presents with chest pain and tightness below her left breast for two days duration associated with some coughing and dyspnea as per pt. then described by the patient is sick wheezing radiating to the back increased by breathing and coughing Patient is slightly tachycardic 110 220 with her blood pressure is 80/62. Afebrile. Labs showing WBC 5.8K, hemoglobin 10.3, platelets 274. INR 1.0. Creatinine 1.1, electrolytes within normal limits. Troponin is 0.0-1 and 0.0-4 [place] 0[place]030[place] 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 Chest x-ray: Pleural effusion with possible pneumonia In the emergency room patient received bronchodilators, pain medication, she was started on Levaquin and Zosyn. IV Lasix. 06/04/2019 Patient is alert awake, she still can without difficulty. She does not look very tachypneic and she is breathing at a rate of 16-18. Per minute however patient states that breathing treatment is not helping her enough and want her to be increased from 4 times to 6 times per day. She still complaining of from the cystic wheezing pain in her chest and dyspnea. She went from some headache today. She is afebrile and blood pressure 96/68. She still on Dilaudid IV, she was and by mouth Dilaudid at home. Labs from today showing stable CBC however BMP showing a drop in sodium 141 down to 1:30, creatinine 1.1 up to 1.44, proBNP is significant cleared from 33,000+ down to 18,000+. Repeat chest x-ray showing worsening by basilar airspace disease. Her Lasix was lowered from 20 mg IV 3 times daily to 40 mg by mouth once daily By cardiology team. Patient remains on Zosyn and Levaquin. Tylenol is added. 06/05/2019 Patient awake and lying in bed not in respiratory distress. She states that her dyspnea is improving slightly. She can talk with no difficulty. She still complains from chest pain and coughing. She is also complaining of from headache mainly in the occipital area, however patient is fully awake and oriented. No new weakness or numbness. Patient has history of recent weakness in her right upper extremity and to a lesser extent in her left upper extremity with some numbness. She was in the hospital and she was referred to neurologist Dr. Maria who told her she has neuropathy and she is scheduled for EMG as an outpatient. Patient was started occupational therapy for her upper extremity about 2 days ago. Vitas looks stable. Liver enzymes back to normal. NA is improving 13. to 135m creatinine still 1.4. Patient remains on the same antibiotics Zosyn and Levaquin. 06/06/2019 Patient is not requiring any oxygen patient was switched to oral Lasix will obtain a repeat chest x-ray tomorrow morning. Patient Zosyn will be discussed in patient will be continued on Levaquin. Physical therapy occupational evaluation today possibility of discharge tomorrow. Constitutional: Denied any fatigue denied any fever. Cardio vascular: denied any chest pain, palpitations Gastrointestinal denied any nausea vomiting Pulmonary: Denied any shortness of breath cough Neurologic denied any new focal deficits All inpatient medications were reviewed and appropriate changes in these medications as dictated in the interval history and assessment and plan. Objective - Vital Signs Vital signs: Vital Signs Temp 97.9 F 06/06/19 07:05 Pulse 78 06/06/19 11:33 Resp 17 06/06/19 07:05 BP 105/73 06/06/19 07:05 Pulse Ox 97 06/06/19 07:05 Intake & Output 06/05/19 06/06/19 06/06/19 18:59 06:59 18:59 Intake Total 1020 240 Output Total 1400 Balance -1400 1020 240 Weight 42.5 kg Intake: Intake, IV Titration 200 Amount Piperacillin-Tazobactam 3 200 .375 gm In Sodium Chloride 0.9% 100 ml @ 25 mls/hr IVPB Q8H [facility] Rx#: [id number] Oral 820 240 Output: Urine 1400 Other: Voiding Method Bedpan Bedpan # Voids 1 3 1 - Exam PHYSICAL EXAMINATION: GENERAL: The patient is alert and oriented x3, not in any acute distress. thin built HEENT: Pupils are round and equally reacting to light. EOMI. No scleral icterus. No conjunctival pallor. Normocephalic, atraumatic. No pharyngeal erythema. No thyromegaly. CARDIOVASCULAR: S1 and S2 present. No murmurs, rubs, or gallops. PULMONARY: Chest is clear to auscultation, no wheezing or crackles. ABDOMEN: Soft, nontender, nondistended, normoactive bowel sounds. No palpable organomegaly. MUSCULOSKELETAL: No joint swelling or deformity. EXTREMITIES: No cyanosis, clubbing, or pedal edema. patient has below-knee amputation on the right side and a bony amputation on the left side NEUROLOGICAL: Gross neurological examination did not reveal any focal deficits. SKIN: No rashes. - Labs CBC & Chem 7: 06/06/19 11:03 06/05/19 07:40 Labs: Abnormal Lab Results - Last 24 Hours (Table) 06/05/19 06/06/19 06/06/19 Range/Units 07:40 11:03 11:03 RBC 3.51 L (3.80-5.40) m/uL Hgb 10.8 L (11.4-16.0) gm/dL MCV 102.6 H (80.0-100.0) fL MCHC 30.0 L (31.0-37.0) g/dL RDW 16.3 H (11.5-15.5) % Lymphocytes # 0.7 L (1.0-4.8) k/uL Sodium 135 L (137-145) mmol/L Carbon Dioxide 18 L (22-30) mmol/L BUN 21 H (7-17) mg/dL Creatinine 1.47 H (0.52-1.04) mg/dL Glucose 152 H (74-99) mg/dL Total Protein 5.6 L (6.3-8.2) g/dL Albumin 2.7 L (3.5-5.0) g/dL Microbiology - Last 24 Hours (Table) 06/03/19 03:21 Blood Culture - Preliminary Blood No Growth after 72 hours 06/03/19 02:27 Blood Culture - Preliminary Blood No Growth after 72 hours 06/05/19 12:30 Gram Stain - Preliminary Sputum Sputum Culture - Preliminary Assessment and Plan Plan: Acute congestive Heart failure with ejection fraction less than 20%patient is presently euvolemic is being switched to oral Lasix possibility of pneumonia cannot be ruled out Zosyn will risk and urine patient was started on the Levaquin and continued, massive exacerbation as well. Acute chest pain, pleuritic-like Acute kidney injury Acute hyponatremia Peripheral neuropathy, in the right upper extremity and to lesser extent the left upper extremity . Pending EMG has an outpatient. She follows up with Dr. Maria Chronic pain syndrome, continued on Dilaudid on outpatient basis History of CVA History of DVT/PE on Lovenox Osteoarthritis Sticky platelet syndrome History of anxiety and depression History of falls
--- NOTE | 2019-06-06 13:15 | P.PN ---
Subjective Progress Note Date: 06/06/19 Principal diagnosis: Dyspnea, chest pain 49-year-old female patient came in to the ED because of chest pain and tightness mainly over the left precordial area that's been going on for the past 2 days in addition to that she was having some increased cough and shortness of breath and wheezing. The pain was radiating to her back especially with taking deep breath. She was quite tachycardic with a heart rate above 100. The blood pressure was low at the time of admission with a BP of 80/62. She was afebrile. White cell count was 5.8. Troponin was negative. ProBNP level was 33,000. Her EKG showed normal sinus mechanism without any acute ST segment abnormalities. Chest X and showed small bilateral pleural effusion and some infiltration/atelectasis in left lung base. Echocardiogram from April 2019 showed impaired LV with an ejection fraction of 20% suggestive of global hypokinesis and trivial pericardial effusion and mild TR and mild MR. Also computed tomography scan of the abdomen was done in the ED that showed some nonspecific pleural-based consolidation of the left lower lobe in addition to bilateral pleural effusions. This was consistent with pneumonia and the patient was started on broad-spectrum antibiotics utilizing a combination of Zosyn and Levaquin. This patient was in the hospital for shortness of breath back in May 2019. Specifically I saw her in consultation 05/12/2019 for shortness of breath. Back then she had presented with history of congestion heart failure and ejection fraction of less than 20%. 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 She has chronic pain, chronic anxiety, chronic depression with no clear- cut history of COPD. During her earlier hospitalization, the patient had some increased pulmonary edema and she was diuresed with IV Lasix and she felt better and she was discharged home. On 06/06/2019 patient seen in follow-up on medical surgical floor. She is awake and alert, in no acute distress, lung sounds reveal coarse rales at the left lung base posteriorly, no significant cough or congestion, she is working on her incentive spirometer, achieve 500 on the today, last chest x-ray from 06/04/2019 showed worsening bibasilar airspace disease with small pleural effusions. No fever or chills, room air pulse ox is 97%, hemodynamically stable, patient is on examination Zosyn and Levaquin, blood culture showed no growth at 72 hours, sputum Gram stain showed rare budding yeast, final culture is pending. No complaints of chest pain, appetite is good, no altered mentation, we'll obtain follow-up chest x-ray today. Objective - Vital Signs Vital signs: Vital Signs Temp 97.9 F 06/06/19 07:05 Pulse 78 06/06/19 11:33 Resp 17 06/06/19 07:05 BP 105/73 06/06/19 07:05 Pulse Ox 97 06/06/19 07:05 Intake & Output 06/05/19 06/06/19 06/06/19 18:59 06:59 18:59 Intake Total 1020 240 Output Total 1400 Balance -1400 1020 240 Weight 42.5 kg Intake: Intake, IV Titration 200 Amount Piperacillin-Tazobactam 3 200 .375 gm In Sodium Chloride 0.9% 100 ml @ 25 mls/hr IVPB Q8H [facility] Rx#: [id number] Oral 820 240 Output: Urine 1400 Other: Voiding Method Bedpan Bedpan # Voids 1 3 1 - Exam GENERAL EXAM: Alert, pleasant, 49-year-old black female on room air, with a pulse ox of 97%, eating lunch comfortable in no apparent distress. HEAD: Normocephalic/atraumatic. EYES: Normal reaction of pupils, equal size. Conjunctiva pink, sclera white. NOSE: Clear with pink turbinates. THROAT: No erythema or exudates. NECK: No masses, no JVD, no thyroid enlargement, no adenopathy. CHEST: No chest wall deformity. Symmetrical expansion. LUNGS: Equal air entry with crackles over left lower base CVS: Regular rate and rhythm, normal S1 and S2, no gallops, no murmurs, no rubs ABDOMEN: Soft, nontender. No hepatosplenomegaly, normal bowel sounds, no guarding or rigidity. EXTREMITIES: No clubbing, no edema, no cyanosis, 2+ pulses and upper and lower extremities. Patient is right above the knee amputee, and left below the knee amputee MUSCULOSKELETAL: Muscle strength and tone normal. SPINE: No scoliosis or deformity SKIN: No rashes CENTRAL NERVOUS SYSTEM: Alert and oriented -3. No focal deficits, tone is normal in all 4 extremities. PSYCHIATRIC: Alert and oriented -3. Appropriate affect. Intact judgment and insight. - Labs CBC & Chem 7: 06/06/19 11:03 06/05/19 07:40 Labs: Abnormal Lab Results - Last 24 Hours (Table) 06/05/19 06/06/19 06/06/19 Range/Units 07:40 11:03 11:03 RBC 3.51 L (3.80-5.40) m/uL Hgb 10.8 L (11.4-16.0) gm/dL MCV 102.6 H (80.0-100.0) fL MCHC 30.0 L (31.0-37.0) g/dL RDW 16.3 H (11.5-15.5) % Lymphocytes # 0.7 L (1.0-4.8) k/uL Sodium 135 L (137-145) mmol/L Carbon Dioxide 18 L (22-30) mmol/L BUN 21 H (7-17) mg/dL Creatinine 1.47 H (0.52-1.04) mg/dL Glucose 152 H (74-99) mg/dL Total Protein 5.6 L (6.3-8.2) g/dL Albumin 2.7 L (3.5-5.0) g/dL Microbiology - Last 24 Hours (Table) 06/03/19 03:21 Blood Culture - Preliminary Blood No Growth after 72 hours 06/03/19 02:27 Blood Culture - Preliminary Blood No Growth after 72 hours 06/05/19 12:30 Gram Stain - Preliminary Sputum Sputum Culture - Preliminary Assessment and Plan Plan: Assessment: 1 left lower lobe pneumonia, with bilateral pleural effusion. The patient has a left lower lobe consolidation as evident on the CAT scan of the abdomen that showed the lung bases and there is clearly an infiltrative consolidation process in the left lung base. Currently on accommodation of Zosyn and Levaquin. 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 maintained on anticoagulation with Lovenox 6 severe peripheral vascular disease with below-knee amputation on the left [id number] position of the right 7 chronic anemia 8 chronic pain syndrome maintained on Dilaudid on outpatient basis 9 chronic anxiety, on Xanax 10 chronic depression 11 previous history of urine checked infection essentially due to gram-negative bacteria 12 moderate persistent asthma maintained on Advair and outpatient basis Plan: Will await the results of the sputum culture, patient has been clinically stable, no fever or chills, hemodynamically stable, and altered mentation, continue encourage deep breathing and coughing, we'll obtain follow-up chest x- ray today. Continue with nebulized bronchodilators. I performed a history & physical examination of the patient and discussed their management with my nurse practitioner, Rosalba Hewitt. I reviewed the nurse practitioner's note and agree with the documented findings and plan of care. Lung sounds are positive for left lower lung crackles. The findings and the impression was discussed with the patient. I attest to the documentation by the nurse practitioner. Time with Patient: Less than 30
--- NOTE | 2019-06-06 14:10 | XR ---
EXAMINATION TYPE: XR chest 2V DATE OF EXAM: 06/06/2019 COMPARISON: 06/04/2019 TECHNIQUE: PA and lateral views submitted. HISTORY: Follow-up pneumonia FINDINGS: Heart is enlarged and there is persistent bilateral effusions and left basilar infiltrate unchanged i n appearance. Interstitium mildly coarsened. No pneumothorax. Diffuse osteopenia. Hypertrophic change s of the spine. Hyperinflation suggests COPD. IMPRESSION: 1. Left lower lobe infiltrate and small effusion stable. Correlate for pneumonia otherwise consider C HF.
[2019-06-06] MEDS: HYDROmorphone 2 MG TAB PO PRN (15:48)
[2019-06-06] MEDS ORDERED: ONDANSETRON 4 MG/2 ML VIAL IVP PRN (15:49)
[2019-06-06] MEDS ORDERED: ALPRAZolam 0.5 MG TAB PO ONE (21:00)
[2019-06-07] MEDS: HYDROmorphone 2 MG TAB PO PRN ×3 (00:09→17:43)
[2019-06-07] MEDS: FUROSEMIDE 40 MG TAB PO SCH ×2 (07:54→07:55)
[2019-06-07] MEDS: ENOXAPARIN 40 MG/0.4 ML SYRINGE SQ SCH ×2 (07:55→20:45)
[2019-06-07] MEDS: LIDOCAINE 5% PATCH TOPICAL SCH (07:55)
[2019-06-07] MEDS: CLOPIDOGREL 75 MG TAB PO SCH (07:56)
[2019-06-07] MEDS: CARVEDILOL 6.25 MG TAB PO SCH ×2 (07:56→17:43)
[2019-06-07] MEDS: FAMOTIDINE 20 MG TAB PO SCH (07:56)
[2019-06-07] MEDS: LISINOPRIL 5 MG TAB PO SCH (07:56)
[2019-06-07] MEDS: LEVOFLOXACIN 750 MG TAB PO SCH (07:56)
[2019-06-07] MEDS: SYMBICORT 80-4.5 MCG INHALER INHALATION SCH ×2 (08:16→20:25)
[2019-06-07] MEDS: IPRATROPIUM-ALBUTEROL 3 ML NEB INHALATION SCH ×4 (08:16→20:25)
[2019-06-07 08:58] LABS: Calcium 8.5 mg/dL (8.4-10.2); Potassium 5.3 mmol/L (3.5-5.1)
--- NOTE | 2019-06-07 10:34 | XR ---
EXAMINATION TYPE: XR chest 2V DATE OF EXAM: 06/07/2019 COMPARISON: 06/06/2019 HISTORY: Abnormal lung sounds in the left lower lobe. TECHNIQUE: Frontal and lateral views of the chest are obtained. FINDINGS: Retrocardiac left basilar opacity and trace effusion are seen. Remainder the lungs are rigoberto ar. Cardia mediastinal silhouette is upper limits of normal. No acute osseous pathology. No sizable p neumothorax. No right pleural effusion. IMPRESSION: Corresponding to the physical examination findings there is a left basilar retrocardiac opacity most compatible with pneumonia and trace parapneumonic effusion.. Follow-up to resolution is recommended to exclude underlying mass.
--- NOTE | 2019-06-07 11:25 | CDI ---
Documentation Clarification Form Date: 06/07/2019 11:18:23 AM From: Angela Sams RN, CCDS Admit Date: 06/05/2019 2:47:00 PM Patient Name: Nel Linares Visit Number: [id number] ATTENTION: The Clinical Documentation Specialists (CDI) and [facility] Coding Staff appreciate your assistance in clarifying documentation. Please respond to the clarification below the line at the bottom and electronically sign. The CDI & [facility] Coding staff will review the response and follow-up if needed. Please note: Queries are made part of the Legal Health Record. If you have any questions, please contact the author of this message via ITS. Dr. Thakur A diagnosis of chronic anemia lacks specificity to accurately reflect your patients severity of condition and clarification is needed. History/Risk Factors: CHF, COPD, chronic pain syndrome, CVA, DVT, PE, OA, sticky platelet syndrome, anxiety, and depression. BMI 18.2 Clinical indicators: Hemoglobin: 10.3/10.7/11.2/10.8 Hematocrit: 33.2/36 Treatment: Plavix 75 mg PO QD Lovenox 40 mg SQ BID Labs AM Daily In order to capture the severity of condition, please clarify the type of anemia and etiology if known: Acute blood loss anemia Acute on chronic blood loss anemia Chronic blood loss anemia Iron deficiency anemia Hemolytic anemia Drug induced anemia Anemia due to malignancy Nutritional anemia Anemia of chronic kidney disease Unable to determine Other, please specify (Last Revision: August 2017) Anemia due to malignancy MTDD
--- NOTE | 2019-06-07 11:38 | P.PN ---
Subjective Progress Note Date: 06/07/19 Principal diagnosis: Dyspnea, chest pain 49-year-old female patient came in to the ED because of chest pain and tightness mainly over the left precordial area that's been going on for the past 2 days in addition to that she was having some increased cough and shortness of breath and wheezing. The pain was radiating to her back especially with taking deep breath. She was quite tachycardic with a heart rate above 100. The blood pressure was low at the time of admission with a BP of 80/62. She was afebrile. White cell count was 5.8. Troponin was negative. ProBNP level was 33,000. Her EKG showed normal sinus mechanism without any acute ST segment abnormalities. Chest X and showed small bilateral pleural effusion and some infiltration/atelectasis in left lung base. Echocardiogram from April 2019 showed impaired LV with an ejection fraction of 20% suggestive of global hypokinesis and trivial pericardial effusion and mild TR and mild MR. Also computed tomography scan of the abdomen was done in the ED that showed some nonspecific pleural-based consolidation of the left lower lobe in addition to bilateral pleural effusions. This was consistent with pneumonia and the patient was started on broad-spectrum antibiotics utilizing a combination of Zosyn and Levaquin. This patient was in the hospital for shortness of breath back in May 2019. Specifically I saw her in consultation 05/12/2019 for shortness of breath. Back then she had presented with history of congestion heart failure and ejection fraction of less than 20%. 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 She has chronic pain, chronic anxiety, chronic depression with no clear- cut history of COPD. During her earlier hospitalization, the patient had some increased pulmonary edema and she was diuresed with IV Lasix and she felt better and she was discharged home. On 06/06/2019 patient seen in follow-up on medical surgical floor. She is awake and alert, in no acute distress, lung sounds reveal coarse rales at the left lung base posteriorly, no significant cough or congestion, she is working on her incentive spirometer, achieve 500 on the today, last chest x-ray from 06/04/2019 showed worsening bibasilar airspace disease with small pleural effusions. No fever or chills, room air pulse ox is 97%, hemodynamically stable, patient is on examination Zosyn and Levaquin, blood culture showed no growth at 72 hours, sputum Gram stain showed rare budding yeast, final culture is pending. No complaints of chest pain, appetite is good, no altered mentation, we'll obtain follow-up chest x-ray today. On 06/07/2019 she seen again in follow-up on medical surgical floor. Coming down for a repeat chest x-ray, and she states she has been complaining of chest pain all night, and and no intervention was done. States her chest pain is worse with coughing, and deep inspiration, seems to be pleuritic in nature, under her left breast area. No radiation anywhere else. No worsening shortness of breath, occasional cough, no phlegm production. No fever or chills, no hemoptysis, room air pulse ox is 100%, hemodynamically stable, lung sounds reveal diminished breath sounds at the bases, with pleural rub at the left lower lobe, today's chest x-ray has been reviewed, showing left basilar retrocardiac opacity compatible with pneumonia and trace parapneumonic effusion. Patient does have a sticky platelet syndrome, but she has been on therapeutic doses of Lovenox, but in view of her underlying hypercoagulable syndrome, we will try to obtain a VQ scan, unable to do CT angiogram related to abnormal renal function. EKG was requested, and cardiology will be asked to read it. Today's labs have been reviewed, showing sodium of 136, potassium is 5.3, CO2 is 21, BUN was 19, creatinine was 1.26. Urine culture is positive for Brinda albicans, final cultures pending, blood culture showed no growth. Patient remains on Levaquin for antibiotic coverage, we'll add Solu-Medrol Objective - Vital Signs Vital signs: Vital Signs Temp 98.4 F 06/07/19 07:00 Pulse 91 06/07/19 07:00 Resp 16 06/07/19 08:00 BP 120/85 06/07/19 07:00 Pulse Ox 100 06/07/19 07:00 Intake & Output 06/06/19 06/07/19 06/07/19 18:59 06:59 18:59 Intake Total 240 528 440 Balance 240 528 440 Weight 46.5 kg Intake: IV 60 0.9 60 Oral 240 468 440 Other: Voiding Method Bedpan # Voids 1 1 - Exam GENERAL EXAM: Alert, pleasant, 49-year-old black female on room air, with a pulse ox of 97%, complaning of pleuritic type chest pain under the left breast area HEAD: Normocephalic/atraumatic. EYES: Normal reaction of pupils, equal size. Conjunctiva pink, sclera white. NOSE: Clear with pink turbinates. THROAT: No erythema or exudates. NECK: No masses, no JVD, no thyroid enlargement, no adenopathy. CHEST: No chest wall deformity. Symmetrical expansion. LUNGS: Equal air entry with crackles over left lower base CVS: Regular rate and rhythm, normal S1 and S2, no gallops, no murmurs, no rubs ABDOMEN: Soft, nontender. No hepatosplenomegaly, normal bowel sounds, no guarding or rigidity. EXTREMITIES: No clubbing, no edema, no cyanosis, 2+ pulses and upper and lower extremities. Patient is right above the knee amputee, and left below the knee amputee MUSCULOSKELETAL: Muscle strength and tone normal. SPINE: No scoliosis or deformity SKIN: No rashes CENTRAL NERVOUS SYSTEM: Alert and oriented -3. No focal deficits, tone is normal in all 4 extremities. PSYCHIATRIC: Alert and oriented -3. Appropriate affect. Intact judgment and insight. - Labs CBC & Chem 7: 06/06/19 11:03 06/07/19 07:42 Labs: Abnormal Lab Results - Last 24 Hours (Table) 06/06/19 06/06/19 06/07/19 Range/Units 11:03 11:03 07:42 RBC 3.51 L (3.80-5.40) m/uL Hgb 10.8 L (11.4-16.0) gm/dL MCV 102.6 H (80.0-100.0) fL MCHC 30.0 L (31.0-37.0) g/dL RDW 16.3 H (11.5-15.5) % Lymphocytes # 0.7 L (1.0-4.8) k/uL Sodium 136 L (137-145) mmol/L Potassium 5.3 H (3.5-5.1) mmol/L Carbon Dioxide 21 L (22-30) mmol/L BUN 19 H (7-17) mg/dL Creatinine 1.26 H (0.52-1.04) mg/dL Glucose 62 L (74-99) mg/dL Total Protein 5.6 L (6.3-8.2) g/dL Albumin 2.7 L (3.5-5.0) g/dL Microbiology - Last 24 Hours (Table) 06/03/19 03:21 Blood Culture - Preliminary Blood No Growth after 96 hours 06/03/19 02:27 Blood Culture - Preliminary Blood No Growth after 96 hours 06/05/19 12:30 Gram Stain - Preliminary Sputum Sputum Culture - Preliminary Brinda albicans Assessment and Plan Plan: Assessment: 1 left lower lobe pneumonia, with bilateral pleural effusion. The patient has a left lower lobe consolidation as evident on the CAT scan of the abdomen that showed the lung bases and there is clearly an infiltrative consolidation process in the left lung base. Currently on Levaquin. 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 Patient is complaining of chest disco mfort, EKG was requested, we'll notify cardiology, chest pain seems to be pleuritic in nature, under her left breast, worse with any inspiration or coughing. We'll start the patient on IV Solu-Medrol 40 mg every 8 hours, we'll obtain a VQ scan to rule out a possibility of pulmonary embolism although patient has been on Lovenox injections, in view of her underlying chronic hypercoagulable condition, pulmonary embolism is a consideration. We'll continue with current antibiotic coverage, cultures are negative thus far, no fever or chills. Patient was unable to lie flat for the VQ scan related to her sacral discomfort. Continue with current dose Lovenox. We'll continue to follow I performed a history & physical examination of the patient and discussed their management with my nurse practitioner, Rosalba Hewitt. I reviewed the nurse practitioner's note and agree with the documented findings and plan of care. Lung sounds are positive for left lower lung crackles. The findings and the impression was discussed with the patient. I attest to the documentation by the nurse practitioner. Time with Patient: Less than 30
--- NOTE | 2019-06-07 11:45 | CDI ---
Documentation Clarification Form Date: 06/07/2019 11:26:25 AM From: Angela Sams RN, CCDS Admit Date: 06/05/2019 2:47:00 PM Patient Name: Nel Linares Visit Number: [id number] ATTENTION: The Clinical Documentation Specialists (CDI) and [facility] Coding Staff appreciate your assistance in clarifying documentation. Please respond to the clarification below the line at the bottom and electronically sign. The CDI & [facility] Coding staff will review the response and follow-up if needed. Please note: Queries are made part of the Legal Health Record. If you have any questions, please contact the author of this message via ITS. Dr. Lindy Thakur Pneumonia was documented in your notes and requires further specificity History/Risk Factors: Asthma, CHF, COPD, PE, renal Disease Clinical Indicators: 06/06 Attending Progress note: "possibility of pneumonia cannot be ruled out Zosyn will risk and urine patient was started on the Levaquin and continued, massive exacerbation as well." 06/06 Pulmonary: "left lower lobe pneumonia, with bilateral pleural effusion." Vital signs: temp 99.3, HR 120, rr 18, b/p 143/99, spo2 1005 ra 06/07 CXR: "left basilar retrocardiac opacity most compatible with pneumonia and trace parapneumonic effusion. 06/06 Pulmonary Lung/Breathing assessment." LUNGS: Equal air entry with crackles over left lower base. Treatment: Vital signs: per unit protocol Antibiotics: Levaquin 750 mg IVPB Q 24 hrs, Zosyn 3.375 IVPB Q 8 hrs O2: 2l nasal cannula Breathing Tx: Duoneb q 4 hrs and QID PRN In order to capture the severity of condition, please clarify if the condition signifies and you are treating for: Bacterial Pneumonia, specify causal organism (if known) Gram Negative Pneumonia Due to Strep Due to Staph Due to E. Coli Other bacteria (please specify) Viral Pneumonia, specify casual organism (if known) Other, please specify Unable to determine (Last Revision: February 2018) Unable to determine MTDD
--- NOTE | 2019-06-07 11:59 | CDI ---
Documentation Clarification Form Date: 06/07/2019 11:46:49 AM From: Angela Sams RN, CCDS Admit Date: 06/05/2019 2:47:00 PM Patient Name: Nel Linares Visit Number: [id number] ATTENTION: The Clinical Documentation Specialists (CDI) and [facility] Coding Staff appreciate your assistance in clarifying documentation. Please respond to the clarification below the line at the bottom and electronically sign. The CDI & [facility] Coding staff will review the response and follow-up if needed. Please note: Queries are made part of the Legal Health Record. If you have any questions, please contact the author of this message via ITS. Dr. Lindy Thakur History/Risk Factors: CHF, bilateral amputee, Asthma, COPD, CVA, Anxiety, Depression, Falls. Clinical Indicators: Patients weight is 46.5 kg Patients height is 63 inches Calculated BMI is 18.2 kg/m2 Patient has bilateral BKA- IBW for amputations is 42 kg per dietary recommendation Treatments: Dietary Consult 06/04 1243 completed In order to capture the severity of condition associated with patient BMI of 18.2, a clinical diagnosis needs to be documented by the physician. Cachexia Protein Calorie Malnutrition Mild Moderate Severe Other Unable to determine (Last Revision: February 2018) Underweight MTDD
--- NOTE | 2019-06-07 12:33 | NM ---
EXAMINATION TYPE: NM pul vent and perfuse DATE OF EXAM: 06/07/2019 COMPARISON: Chest x-ray 06/07/2019 HISTORY: Shortness of breath TECHNIQUE: Utilizing inhalation of 67.0 mCi Tc 99m DTPA aerosol and intravenous injection of 5.06 mC i of Tc 99m MAA, ventilation and perfusion images are acquired post injection in multiple projections . FINDINGS: There is a triple match involving the posterior margin of the left lower lobe. Reduced uptake is seen on ventilation and perfusion images and corresponds to an area of consolidation in the left lower lo be noted by chest x-ray. No sizable mismatch perfusion ventilation defects. IMPRESSION: Triple match left lower lobe compatible with intermediate probability for pulmonary embolism.
[2019-06-07] MEDS ORDERED: HYDROmorphone 1 MG/ML 1 ML SYRINGE IVP STA (12:36)
[2019-06-07] MEDS: methylPREDNISolone SOD SUCCI 40 MG/ML 1 ML VIAL IV SCH ×3 (12:39→23:50)
--- NOTE | 2019-06-07 15:56 | P.PN ---
Subjective Progress Note Date: 06/07/19 Principal diagnosis: This is a 49-year-old female was recently admitted for chest pain with some dyspnea and coughing. Pulmonary is following. Chest x-ray done today shows a retrocardiac left basilar opacity and trace effusion that is most likely compatible with pneumonia and a trace parapneumonic effusion. Patient underwent a lung perfusion scan today. Awaiting results at this time. Patient is currently on oral antibiotics and being started on IV steroids at this time. Patient is currently on anticoagulation with Lovenox injections. Patient denies any palpitations, chest pain, nausea, or vomiting at this time. Patient states that she is having shortness of breath on the lower left side with inspiration. Patient is requesting additional pain medications at this time. Prognosis is guarded. Will continue to monitor closely. Objective - Vital Signs Vital signs: Vital Signs Temp 97.8 F 06/07/19 15:00 Pulse 74 06/07/19 15:00 Resp 15 06/07/19 15:00 BP 106/72 06/07/19 15:00 Pulse Ox 99 06/07/19 15:00 Intake & Output 06/06/19 06/07/19 06/07/19 18:59 06:59 18:59 Intake Total 240 528 880 Balance 240 528 880 Weight 46.5 kg Intake: IV 60 0.9 60 Oral 240 468 880 Other: Voiding Method Bedpan # Voids 1 1 3 - Exam Gen: This is a 49-year-old female sitting up in her wheelchair in some mild acute distress due to her pain. Blood pressure is 120/85, pulse is 91, resp irations are 16, oxygen saturation is 100% on room air, and temp is 98.4F. Patient states her pain is 10 out of 10 HEENT: Head is atraumatic, normocephalic. Pupils equal, round. Sclerae is anicteric. NECK: Supple. No JVD. No lymphadenopathy. No thyromegaly. LUNGS: Mild crackles noted on the left lower lung base. No wheezes or rhonchi. No intercostal retractions. HEART: Regular rate and rhythm. No murmur. ABDOMEN: Soft. Bowel sounds are present. No masses. No tenderness. EXTREMITIES: Bilateral lower extremity amputee. AKA on the right, BKA on the left NEUROLOGICAL: Patient is awake, alert and oriented x3. Cranial nerves 2 through 12 are grossly intact. - Labs CBC & Chem 7: 06/06/19 11:03 06/07/19 07:42 Labs: Abnormal Lab Results - Last 24 Hours (Table) 06/07/19 Range/Units 07:42 Sodium 136 L (137-145) mmol/L Potassium 5.3 H (3.5-5.1) mmol/L Carbon Dioxide 21 L (22-30) mmol/L BUN 19 H (7-17) mg/dL Creatinine 1.26 H (0.52-1.04) mg/dL Glucose 62 L (74-99) mg/dL Microbiology - Last 24 Hours (Table) 06/05/19 12:30 Gram Stain - Final Sputum Sputum Culture - Final Brinda albicans Brinda glabrata 06/03/19 03:21 Blood Culture - Preliminary Blood No Growth after 96 hours 06/03/19 02:27 Blood Culture - Preliminary Blood No Growth after 96 hours Assessment and Plan Assessment: Acute congestive heart failure with ejection fraction less than 20%: Patient is presently euvolemic and was switched to oral Lasix 40 mg daily Possibility of pneumonia cannot be ruled out. Patient currently on oral Levaquin and will continue Q chest pain, pleuritic-like: Patient underwent lung perfusion scan today awaiting results Acute kidney injury Acute hyponatremia Peripheral neuropathy, and the right upper extremity and less in the left upper extremity Pending EMG study on an outpatient basis Chronic pain syndrome, currently on oral Dilaudid History of CVA History of DVT/PE currently still on Lovenox injections Osteoarthritis Sticky platelet syndrome History of anxiety and depression History of falls Recommendations and discussion: Recommend continue current medications and symptomatic treatment. Will continue to monitor closely. Pulmonary is following. Awaiting lung perfusion scan at this time. PT/OT are following. Patient will continue on oral antibiotics and oral Lasix. Guarded prognosis. Further recommendations to follow. Possible discharge in 24-48 hours.
[2019-06-07] MEDS ORDERED: ALPRAZolam 0.5 MG TAB PO PRN (19:06)
[2019-06-08] MEDS: HYDROmorphone 2 MG TAB PO PRN ×2 (03:58→12:25)
[2019-06-08] MEDS: IPRATROPIUM-ALBUTEROL 3 ML NEB INHALATION SCH ×3 (07:20→15:52)
[2019-06-08] MEDS: SYMBICORT 80-4.5 MCG INHALER INHALATION SCH (07:21)
[2019-06-08] MEDS: CLOPIDOGREL 75 MG TAB PO SCH (09:17)
[2019-06-08] MEDS: ENOXAPARIN 40 MG/0.4 ML SYRINGE SQ SCH (09:17)
[2019-06-08] MEDS: FUROSEMIDE 40 MG TAB PO SCH (09:18)
[2019-06-08] MEDS: LISINOPRIL 5 MG TAB PO SCH (09:18)
[2019-06-08] MEDS: CARVEDILOL 6.25 MG TAB PO SCH (09:18)
[2019-06-08] MEDS: FAMOTIDINE 20 MG TAB PO SCH (09:18)
[2019-06-08] MEDS: methylPREDNISolone SOD SUCCI 40 MG/ML 1 ML VIAL IV SCH (09:18)
[2019-06-08] MEDS: LIDOCAINE 5% PATCH TOPICAL SCH (09:18)
--- NOTE | 2019-06-08 10:08 | US ---
EXAMINATION TYPE: US venous doppler duplex LE DATE OF EXAM: 06/08/2019 9:42 AM COMPARISON: US/ CT CLINICAL HISTORY: rule out DVT. Pt admitted with PE/ Pt has history of DVT left leg/ History of right leg amputation at distal femur and left leg amputation below the knee SIDE PERFORMED: Bilateral TECHNIQUE: The lower extremity deep venous system is examined utilizing real time linear array sonog neha with graded compression, doppler sonography and color-flow sonography. VESSELS IMAGED: External Iliac Vein (EIV) Common Femoral Vein Deep Femoral Vein Greater Saphenous Vein * Femoral Vein Popliteal Vein Small Saphenous Vein * Proximal Calf Veins (* superficial vessels) Grayscale, color doppler, spectral doppler imaging performed of the deep veins of the lower extremiti es. There is normal flow, compressibility, vascular waveforms on the right with nonvisualization of the popliteal veins. Right Leg: Negative for DVT, popliteal veins not visualized due to amputation Left Leg: +DVT with complete occlusion at distal femoral vein and proximal popliteal vein, changed w hen compared to previous US in November/ flow within mid and distal popliteal vein/ proximal c billy veins not visualized due to amputation IMPRESSION: 1. Positive deep venous thrombosis of the distal left femoral vein descending into the proximal popli teal vein, worsened in comparison to the prior of 12/07/2018 with now complete occlusion. Worsening ch ronic deep venous thrombosis. 2. No sonographic evidence of deep venous thrombosis within the visualized right lower extremity. A Yellow level critical message alert has been initiated for Misty Flannery MD via the [employer] Critical Results System on 06/08/2019 10:05 AM. This message alert has been sent to Misty Flannery MD via the preferences provided by the clinician for the receipt of Radiology Critical Findings. [employer] e ID [id number].
[2019-06-08 12:00] LABS: Calcium 9.1 mg/dL (8.4-10.2); Potassium 5.2 mmol/L (3.5-5.1)
--- NOTE | 2019-06-08 14:20 | P.PN ---
Subjective Progress Note Date: 06/08/19 Principal diagnosis: Dyspnea, chest pain 49-year-old female patient came in to the ED because of chest pain and tightness mainly over the left precordial area that's been going on for the past 2 days in addition to that she was having some increased cough and shortness of breath and wheezing. The pain was radiating to her back especially with taking deep breath. She was quite tachycardic with a heart rate above 100. The blood pressure was low at the time of admission with a BP of 80/62. She was afebrile. White cell count was 5.8. Troponin was negative. ProBNP level was 33,000. Her EKG showed normal sinus mechanism without any acute ST segment abnormalities. Chest X and showed small bilateral pleural effusion and some infiltration/atelectasis in left lung base. Echocardiogram from April 2019 showed impaired LV with an ejection fraction of 20% suggestive of global hypokinesis and trivial pericardial effusion and mild TR and mild MR. Also computed tomography scan of the abdomen was done in the ED that showed some nonspecific pleural-based consolidation of the left lower lobe in addition to bilateral pleural effusions. This was consistent with pneumonia and the patient was started on broad-spectrum antibiotics utilizing a combination of Zosyn and Levaquin. This patient was in the hospital for shortness of breath back in May 2019. Specifically I saw her in consultation 05/12/2019 for shortness of breath. Back then she had presented with history of congestion heart failure and ejection fraction of less than 20%. 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 She has chronic pain, chronic anxiety, chronic depression with no clear- cut history of COPD. During her earlier hospitalization, the patient had some increased pulmonary edema and she was diuresed with IV Lasix and she felt better and she was discharged home. On 06/06/2019 patient seen in follow-up on medical surgical floor. She is awake and alert, in no acute distress, lung sounds reveal coarse rales at the left lung base posteriorly, no significant cough or congestion, she is working on her incentive spirometer, achieve 500 on the today, last chest x-ray from 06/04/2019 showed worsening bibasilar airspace disease with small pleural effusions. No fever or chills, room air pulse ox is 97%, hemodynamically stable, patient is on examination Zosyn and Levaquin, blood culture showed no growth at 72 hours, sputum Gram stain showed rare budding yeast, final culture is pending. No complaints of chest pain, appetite is good, no altered mentation, we'll obtain follow-up chest x-ray today. On 06/07/2019 she seen again in follow-up on medical surgical floor. Coming down for a repeat chest x-ray, and she states she has been complaining of chest pain all night, and and no intervention was done. States her chest pain is worse with coughing, and deep inspiration, seems to be pleuritic in nature, under her left breast area. No radiation anywhere else. No worsening shortness of breath, occasional cough, no phlegm production. No fever or chills, no hemoptysis, room air pulse ox is 100%, hemodynamically stable, lung sounds reveal diminished breath sounds at the bases, with pleural rub at the left lower lobe, today's chest x-ray has been reviewed, showing left basilar retrocardiac opacity compatible with pneumonia and trace parapneumonic effusion. Patient does have a sticky platelet syndrome, but she has been on therapeutic doses of Lovenox, but in view of her underlying hypercoagulable syndrome, we will try to obtain a VQ scan, unable to do CT angiogram related to abnormal renal function. EKG was requested, and cardiology will be asked to read it. Today's labs have been reviewed, showing sodium of 136, potassium is 5.3, CO2 is 21, BUN was 19, creatinine was 1.26. Urine culture is positive for Brinda albicans, final cultures pending, blood culture showed no growth. Patient remains on Levaquin for antibiotic coverage, we'll add Solu-Medrol On 06/08/2019 patient seen in follow-up on medical surgical floor. Still complaining of pleuritic-type chest pain under the left breast, worse with the repositioning deep inspiration. VQ scan was obtained yesterday, showing intermediate probability for pulmonary embolism reduced uptake on the VQ images corresponding to an area of consolidation in the left lower lobe, previously n oted on a chest x-ray, but no sizable mismatch perfusion ventilation defects were noted. Lower extremity Dopplers were completed showing a right leg is negative for DVT, and left leg was positive for a DVT with complete occlusion at the distal femoral vein and proximal popliteal vein. Note that in November 2018 patient did have a DVT in the left leg with a thready flow within the mid and distal popliteal vein. Patient is on chronic anticoagulation in the form of Lovenox 40 mg twice daily for her history of sticky platelet syndrome. We opted to increase the Lovenox to 60 mg twice a day however after discussion with the attending physician who feels that the patient's risk of bleeding on increased doses of Lovenox would be significantly increased and would like to keep the Lovenox at 40 mg twice daily at this time. Especially in view of stable oxygenation, and stable vital signs. No fever or chills, no cough or congestion, patient's main complaint is pleuritic chest pain, urine culture was positive for Brinda albicans and Brinda glabrata with cultures have been negative, antibiotic coverage remains with Levaquin. Room air pulse ox is 100%, lung sounds reveal good air entry bilaterally, with limited crackles at bilateral bases, no rhonchi, no wheezing. Objective - Vital Signs Vital signs: Vital Signs Temp 97.7 F 06/08/19 07:00 Pulse 69 06/08/19 08:00 Resp 15 06/08/19 08:00 BP 113/73 06/08/19 07:00 Pulse Ox 100 06/08/19 07:00 Intake & Output 06/07/19 06/08/19 06/08/19 18:59 06:59 18:59 Intake Total 880 880 240 Balance 880 880 240 Weight 46 kg Intake: IV 110 0.9 110 Oral 880 770 240 Other: Voiding Method Bedpan Bedpan # Voids 3 3 - Exam GENERAL EXAM: Alert, pleasant, 49-year-old black female on room air, with a pulse ox of 97%, complaning of pleuritic type chest pain under the left breast area HEAD: Normocephalic/atraumatic. EYES: Normal reaction of pupils, equal size. Conjunctiva pink, sclera white. NOSE: Clear with pink turbinates. THROAT: No erythema or exudates. NECK: No masses, no JVD, no thyroid enlargement, no adenopathy. CHEST: No chest wall deformity. Symmetrical expansion. LUNGS: Equal air entry with crackles over left lower base CVS: Regular rate and rhythm, normal S1 and S2, no gallops, no murmurs, no rubs ABDOMEN: Soft, nontender. No hepatosplenomegaly, normal bowel sounds, no guarding or rigidity. EXTREMITIES: No clubbing, no edema, no cyanosis, 2+ pulses and upper and lower extremities. Patient is right above the knee amputee, and left below the knee a mputee MUSCULOSKELETAL: Muscle strength and tone normal. SPINE: No scoliosis or deformity SKIN: No rashes CENTRAL NERVOUS SYSTEM: Alert and oriented -3. No focal deficits, tone is normal in all 4 extremities. PSYCHIATRIC: Alert and oriented -3. Appropriate affect. Intact judgment and insight. - Labs CBC & Chem 7: 06/06/19 11:03 06/08/19 11:03 Labs: Abnormal Lab Results - Last 24 Hours (Table) 06/08/19 Range/Units 11:03 Sodium 133 L (137-145) mmol/L Potassium 5.2 H (3.5-5.1) mmol/L Carbon Dioxide 21 L (22-30) mmol/L BUN 22 H (7-17) mg/dL Creatinine 1.11 H (0.52-1.04) mg/dL Glucose 142 H (74-99) mg/dL Microbiology - Last 24 Hours (Table) 06/03/19 03:21 Blood Culture - Preliminary Blood No Growth after 120 hours 06/03/19 02:27 Blood Culture - Preliminary Blood No Growth after 120 hours 06/05/19 12:30 Gram Stain - Final Sputum Sputum Culture - Final Brinda albicans Brinda glabrata Assessment and Plan Plan: Assessment: 1 left lower lobe pneumonia, with bilateral pleural effusion. The patient has a left lower lobe consolidation as evident on the CAT scan of the abdomen that showed the lung bases and there is clearly an infiltrative consolidation process in the left lung base. Currently on Levaquin. 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 maintained on anticoagulation with Lovenox 6 severe peripheral vascular disease with below-knee amputation on the left [id number] position of the right 7 chronic anemia 8 chronic pain syndrome maintained on Dilaudid on outpatient basis 9 chronic anxiety, on Xanax 10 chronic depression 11 previous history of urine checked infection essentially due to gram-negative bacteria 12 moderate persistent asthma maintained on Advair and outpatient basis 13 indeterminate probability for pulmonary embolism seen on the VQ scan, no significant VQ mismatch and area of decreased uptake on VQ images corresponds to a known area of pneumonia in the left lower lobe. 14 left leg DVT, with complete occlusion at distal femoral vein and proximal popliteal vein progressed since previous study in November 2018 Plan: The results of the VQ scan and lower extremity Dopplers were discussed with the patient, note that the patient had a nonoccluding DVT with thready flow in the left leg present in November 2018 which seems to have progressed to complete occlusion at distal femoral vein. Patient is already on Lovenox 40 mg twice a day, we opted to increase the Lovenox to 60 mg twice daily however after discussion with the attending physician, who felt that patient's risk of b leeding on increased doses of Lovenox would be significantly increased, and requested to keep the Lovenox dose the same especially in view of patient's clinically stable pulmonary status. Patient is on room air, with O2 sat of 100%, hemodynamically stable, does still have complaints of pleuritic chest pain, but no fever or chills, no hemodynamic instability, no lightheadedness or dizziness. From pulmonary perspective patient is stable for discharge home on oral antibiotics, oral steroids, her maintenance dose of Lovenox 40 mg twice daily as discussed above. I performed a history & physical examination of the patient and discussed their management with my nurse practitioner, Rosalba Hewitt. I reviewed the nurse practitioner's note and agree with the documented findings and plan of care. Lung sounds are positive for left lower lung crackles. The findings and the impression was discussed with the patient. I attest to the documentation by the nurse practitioner. Time with Patient: Less than 30
[2019-06-08 15:02] VITALS: BP 125/78; PULSE 92; RESP 16; TEMP 98.3
--- NOTE | 2019-06-08 19:27 | P.DS ---
Providers Date of admission: 06/05/19 14:47 Expected date of discharge: 06/08/19 Attending physician: Misty Flannery Consults: 06/03/19 00:32 Consult Physician Routine Consulting Provider: [facility] Consult Reason/Comments: Chest Pain Do you want consulting provider notified?: Yes 06/03/19 14:32 Consult Physician Urgent Consulting Provider: Zara Davenport Consult Reason/Comments: COPD and pneumonia, CHF Do you want consulting provider notified?: Yes Primary care physician: [facility] Course: Final diagnosis Acute Congestive Heart failure with ejection fraction less than 20%. Patient is presently euvolemic and has been on oral lasix. Possibility of pneumonia cannot be ruled out. Patient will go home on oral Levaquin.] Chest pain, pleuritic like. Lung scan showed an embolism of the left lower lobe Acute kidney injury Acute hyponatremia Peripheral neuropathy Chronic pain syndrome, will continue on oral Dilaudid History of CVA History of DVT/PE currently on Lovenox injections 40mg twice daily Osteoarthritis Sticky platelet syndrome History of anxiety and depression History of falls Discharge disposition: Patient is being discharged home in a stable condition with guarded prognosis. Patient will go home continuing Lovenox injections as well as oral steroids, antibiotics, and pain medications. History of present illness This is a 49 year old female that was admitted for shortness of breath, and pleuritic-like chest pain of the left side. Patient underwent a VQ scan showing left lower lobe compatible with intermediate probability for PE. Patient had a venous doppler study done showing a DVT in the left leg distal femoral vein and proximal popliteal vein.Patient is currently on anticoagulation for history of DVT/PE with lovenox. Patient will resume Lovenox 40mg twice daily. Patient will continue oral antibiotics and steroids. Patient is to follow up with vascular surgery in an outpatient setting. Patient denies any new shortness of breath or palpitations at this time. Patient is tolerating diet. Patient denies any nausea or vomiting. Patient is having a dull left side achiness of the lower rib area. Patient will continue oral Dilaudid as she was at home. Patient is currently stable. Patient will be discharged home in a stable condition with guarded prognosis. Mother is at the bedside. On exam vital signs are stable. Temp is 97.7, pulse is 69, blood pressure is 113/73, resp are 15, oxygen saturation is 100% on room air. Cardio S1 and S2 muffled. Respiratory system shows diminished lung sounds with crackles at the bases. Abdomen is soft and non-tender. Nervous system shows no focal deficits. Please refer to the medication reconcilliation sheet for a list of medications. Patient Condition at Discharge: Serious Plan - Discharge Summary New Discharge Prescriptions: New Levofloxacin [Levaquin] 750 mg PO Q48H #3 tab predniSONE 10 mg PO DIRECTED #30 tab Continue Clopidogrel Bisulfate [Plavix] 75 mg PO DAILY Cyclobenzaprine [Flexeril] 10 mg PO TID PRN PRN Reason: Muscle Spasm Nitroglycerin Sl Tabs [Nitrostat] 0.4 mg SUBLINGUAL Q5M PRN tab PRN Reason: Chest Pain Albuterol Sulfate [Proair Hfa] 1 puff INHALATION RT-Q6H PRN PRN Reason: Shortness Of Breath Carvedilol [Coreg] 6.25 mg PO BID-W/MEALS #60 tab Lisinopril [Zestril] 5 mg PO DAILY #30 tab HYDROmorphone HCL [Dilaudid] 8 mg PO TID Sucralfate [Carafate] 1 gram PO DAILY PRN PRN Reason: Heartburn Enoxaparin [Lovenox] 40 mg SQ BID ALPRAZolam [Xanax] 2 mg PO DAILY PRN PRN Reason: Anxiety Furosemide [Lasix] 40 mg PO DAILY PRN PRN Reason: SWELLING Ipratropium-Albuterol Nebulize [Duoneb 0.5 mg-3 mg/3 ml Soln] 3 ml INHALATION RT-QID #120 ampul.neb Acetaminophen Tab [Tylenol] 500 mg PO Q6HR PRN tab PRN Reason: Fever and/ or Mild Pain Fluticasone/Salmeterol [Advair 250-50 Diskus] 1 puff INHALATION RT-BID Famotidine [Pepcid] 20 mg PO DAILY PRN PRN Reason: Heartburn Discharge Medication List Clopidogrel Bisulfate [Plavix] 75 mg PO DAILY 12/06/18 [History] Cyclobenzaprine [Flexeril] 10 mg PO TID PRN 12/27/18 [History] Nitroglycerin Sl Tabs [Nitrostat] 0.4 mg SUBLINGUAL Q5M PRN tab 12/28/18 [Rx] Albuterol Sulfate [Proair Hfa] 1 puff INHALATION RT-Q6H PRN 04/09/19 [History] Carvedilol [Coreg] 6.25 mg PO BID-W/MEALS #60 tab 04/12/19 [Rx] Lisinopril [Zestril] 5 mg PO DAILY #30 tab 04/12/19 [Rx] ALPRAZolam [Xanax] 2 mg PO DAILY PRN 05/01/19 [History] Enoxaparin [Lovenox] 40 mg SQ BID 05/01/19 [History] HYDROmorphone HCL [Dilaudid] 8 mg PO TID 05/01/19 [History] Sucralfate [Carafate] 1 gram PO DAILY PRN 05/01/19 [History] Furosemide [Lasix] 40 mg PO DAILY PRN 05/11/19 [History] Acetaminophen Tab [Tylenol] 500 mg PO Q6HR PRN tab 05/14/19 [Rx] Ipratropium-Albuterol Nebulize [Duoneb 0.5 mg-3 mg/3 ml Soln] 3 ml INHALATION RT-QID #120 ampul.neb 05/14/19 [Rx] Fluticasone/Salmeterol [Advair 250-50 Diskus] 1 puff INHALATION RT-BID 05/17/19 [History] Famotidine [Pepcid] 20 mg PO DAILY PRN 06/03/19 [History] Levofloxacin [Levaquin] 750 mg PO Q48H #3 tab 06/08/19 [Rx] predniSONE 10 mg PO DIRECTED #30 tab 06/08/19 [Rx] Follow up Appointment(s)/Referral(s): Jalen Gary MD [STAFF PHYSICIAN] - 06/20/19 3:15 pm Carissa Castro MD [Primary Care Provider] - 1 Week (Please call office tomorrow to schedule appointment) Zara Davenport MD [STAFF PHYSICIAN] - 06/15/19 9:00 am Ambulatory/Diagnostic Orders: Comprehensive Metabolic Panel [LAB.AMB] Time Frame: 3 Days, Location: None Selected Patient Instructions/Handouts: Chest Pain (DC) Activity/Diet/Wound Care/Special Instructions: Activity limited until follow up continue current antibiotic until complete continue prednisone taper continue current diet FOLLOW UP WITH BLOOD DOCTOR IN 1 WEEK Discharge Disposition: HOME SELF-CARE
[2019-06-08] MEDS ORDERED: ENOXAPARIN 40 MG/0.4 ML SYRINGE SQ SCH (21:00)
[2019-06-08] MEDS ORDERED: ENOXAPARIN 60 MG/0.6 ML SYRINGE SQ SCH (21:00)
[2019-06-09] MEDS ORDERED: predniSONE 20 MG TAB PO SCH (09:00)
== END 2019-06-08 16:00 | disposition home or self-care (01) | DRG 193 ==
LOC: EC 20:14 → 1SOBS 06-03 00:23 → OBSVTOIN 06-05 14:47 → 4SSUR 06-05 18:25
PROVIDERS: ADMIT Hospitalist; ATTEND Hospitalist
DX: J18.1 Lobar pneumonia, unspecified organism (principal); I50.23 Acute on chronic systolic (congestive) heart failure; I26.99 Other pulmonary embolism without acute cor pulmonale; E87.1 Hypo-osmolality and hyponatremia; I82.402 Acute embolism and thrombosis of unspecified deep veins of left lower extremity; J44.0 Chronic obstructive pulmonary disease with (acute) lower respiratory infection; J44.1 Chronic obstructive pulmonary disease with (acute) exacerbation; J98.11 Atelectasis; N17.9 Acute kidney failure, unspecified; I42.9 Cardiomyopathy, unspecified; Z68.1 Body mass index [BMI] 19.9 or less, adult; D69.1 Qualitative platelet defects; G62.9 Polyneuropathy, unspecified; D64.9 Anemia, unspecified; F32.9 Major depressive disorder, single episode, unspecified; F41.9 Anxiety disorder, unspecified; R07.89 Other chest pain; G89.4 Chronic pain syndrome; I73.9 Peripheral vascular disease, unspecified; J45.40 Moderate persistent asthma, uncomplicated; M19.90 Unspecified osteoarthritis, unspecified site; R51 Headache; R63.6 Underweight; Z79.01 Long term (current) use of anticoagulants; Z79.02 Long term (current) use of antithrombotics/antiplatelets; Z79.891 Long term (current) use of opiate analgesic; Z79.899 Other long term (current) drug therapy; Z88.6 Allergy status to analgesic agent; Z88.5 Allergy status to narcotic agent; Z89.512 Acquired absence of left leg below knee; Z89.611 Acquired absence of right leg above knee; Z87.891 Personal history of nicotine dependence; Z86.73 Personal history of transient ischemic attack (TIA), and cerebral infarction without residual deficits; Z91.81 History of falling; Z90.49 Acquired absence of other specified parts of digestive tract; Z82.1 Family history of blindness and visual loss
CPT/HCPCS: 36415; 71046; 74177; 78582; 80048; 80053; 80076; 82150; 83690; 83735; 83880; 84484; 85025; 85610; 85730; 87040; 87070; 87205; 93005; 93970; 94640; 96374; 96375; 96376; 99285

== ENCOUNTER → 2019-06-09 | Outpatient (CLI) | payer MEDICARE, OTHER ==
[2019-06-09 11:27] LABS: Basophils % (A) 0 %; Eosinophils # (A) 0.1 k/uL (0-0.7); Eosinophils % (A) 1 %; HCT 43.7 % (34.0-46.0); HGB 12.6 gm/dL (11.4-16.0); Hypochromasia Marked; Lymphocytes # (A) 1.2 k/uL (1.0-4.8); Lymphocytes % (A) 16 %; MCH 29.5 pg (25.0-35.0); MCHC 28.9 g/dL (31.0-37.0); MCV 102.2 fL (80.0-100.0); Macrocytosis Slight; Mean Platelet Volume 6.6; Monocytes # (A) 0.5 k/uL (0-1.0); Monocytes % (A) 6 %; Neutrophils # (A) 5.4 k/uL (1.3-7.7); Neutrophils % (A) 74 %; Platelet Count 469 k/uL (150-450); RBC 4.27 m/uL (3.80-5.40); RDW 15.3 % (11.5-15.5); WBC 7.2 k/uL (3.8-10.6)
[2019-06-09 16:14] LABS: African American GFR (CKD) 60.6 (60.0-200.0); Albumin 3.5 g/dL (3.80-4.90); Albumin/Globulin Ratio 1.4 (1.60-3.17); BUN/Creat Ratio 21.67 Ratio (12.00-20.00); Chol/HDL Ratio 2.48; Globulin 2.5 g/dL (1.6-3.3); LDL Cholesterol,Calculated 65.2 mg/dL (0.0-131.0); Non-African American GFR(CKD) 52.3 (60.0-200.0); Potassium 5.4 mmol/L (3.5-5.5); Total Bilirubin 0.1 mg/dL (0.2-1.2); VLDL Calculation 11.8 mg/dL (5.00-40.00)
== END | disposition home or self-care (01) ==
LOC: LABWHC1 10:25
PROVIDERS: ATTEND Family Medicine
DX: I50.9 Heart failure, unspecified (principal); R06.02 Shortness of breath; I42.9 Cardiomyopathy, unspecified; G62.9 Polyneuropathy, unspecified; R29.898 Other symptoms and signs involving the musculoskeletal system; Z13.228 Encounter for screening for other metabolic disorders
CPT/HCPCS: 36415; 80053; 80061; 84443; 85025

== ENCOUNTER → 2019-07-01 | Outpatient (CLI) | payer MEDICARE, OTHER ==
[2019-07-01 23:18] LABS: Iron Saturation 11.37 (12.00-45.00); Iron(FE) 34 ug/dL (50-170); Total Iron Binding Capacity 299 ug/dL (228-460)
[2019-07-01 23:23] LABS: Albumin 3.5 g/dL (3.80-4.90); Albumin/Globulin Ratio 1.21 (1.60-3.17); Bilirubin, Conjugated 0.2 mg/dL (0.20-0.40); Bilirubin,Unconjugated 0.1 mg/dL; Globulin 2.9 g/dL (1.6-3.3); Total Bilirubin 0.3 mg/dL (0.2-1.2); Total Protein 6.4 g/dL (6.2-8.2)
[2019-07-01 23:52] LABS: Hepatitis A Antibody IgM Non-Reactive (Non-Reactive); Hepatitis B Core IgM Non-Reactive (Non-Reactive); Hepatitis C IgG Antibody Non-Reactive (Non-Reactive)
[2019-07-02 00:07] LABS: HIV 1 AB Non-Reactive (Non-Reactive); HIV 2 AB Non-Reactive (Non-Reactive); HIV AB P24 Non-Reactive (Non-Reactive); HIV P24 AG Non-Reactive (Non-Reactive)
[2019-07-02 09:53] LABS: Ceruloplasmin 37.1 mg/dL (20.0-60.0)
[2019-07-04 08:02] LABS: Hepatits C Virus RNA Not detected (Not detected); Hepatits C Virus RNA, Quant <12 IU/mL (<12); LOG HCV IU/mL <1.08 (<1.08)
== END | disposition home or self-care (01) ==
LOC: LABWHC1 15:15
PROVIDERS: ATTEND Family Medicine
DX: R74.8 Abnormal levels of other serum enzymes (principal)
CPT/HCPCS: 36415; 80076; 82390; 82728; 83516; 83540; 83550; 86038; 86704; 86705; 86709; 86803; 87340; 87390; 87522

== ENCOUNTER 2019-07-11 20:25 | Observation (INO) | payer MEDICARE, OTHER ==
--- NOTE | 2019-07-11 21:02 | ED ---
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 The patient presents the emergency department today for evaluation of lower abdominal pain radiating to the bilateral flanks with no change in bowel or bladder habits. - Related Data Home Medications Medication Instructions Recorded Confirmed Clopidogrel Bisulfate [Plavix] 75 mg PO DAILY 12/06/18 07/11/19 Cyclobenzaprine [Flexeril] 10 mg PO TID PRN 12/27/18 07/11/19 Albuterol Sulfate [Proair Hfa] 1 puff INHALATION RT-Q6H PRN 04/09/19 07/11/19 ALPRAZolam [Xanax] 2 mg PO DAILY PRN 05/01/19 07/11/19 Enoxaparin [Lovenox] 40 mg SQ BID 05/01/19 07/11/19 HYDROmorphone HCL [Dilaudid] 8 mg PO TID PRN 05/01/19 07/11/19 Sucralfate [Carafate] 1 gram PO DAILY PRN 05/01/19 07/11/19 Furosemide [Lasix] 40 mg PO DAILY PRN 05/11/19 07/11/19 Fluticasone/Salmeterol [Advair 1 puff INHALATION RT-BID 05/17/19 07/11/19 250-50 Diskus] Famotidine [Pepcid] 20 mg PO DAILY PRN 06/03/19 07/11/19 Ipratropium-Albuterol Nebulize 3 ml INHALATION RT-QID PRN 07/11/19 07/11/19 [Duoneb 0.5 mg-3 mg/3 ml Soln] Previous Rx's Medication Instructions Recorded Nitroglycerin Sl Tabs [Nitrostat] 0.4 mg SUBLINGUAL Q5M PRN tab 12/28/18 Carvedilol [Coreg] 6.25 mg PO BID-W/MEALS #60 tab 04/12/19 Lisinopril [Zestril] 5 mg PO DAILY #30 tab 04/12/19 Acetaminophen Tab [Tylenol] 500 mg PO Q6HR PRN tab 05/14/19 Allergies Allergy/AdvReac Type Severity Reaction Status Date / Time ibuprofen Allergy Unknown Verified 07/11/19 21:04 trazodone AdvReac Chest Pain Verified 07/11/19 21:04 Review of Systems ROS Statement: Those systems with pertinent positive or pertinent negative responses have been documented in the HPI. ROS Other: All systems not noted in ROS Statement are negative. Past Medical History Past Medical History: Asthma, CVA/TIA, Deep Vein Thrombosis (DVT), Osteoarthritis (OA), Pulmonary Embolus (PE) Additional Past Medical History / Comment(s): sticky platelet syndrome, bronchitis, History of Any Multi-Drug Resistant Organisms: None Reported Date of last positivie culture/infection: 10/15/18 ESBL MDRO Source:: Urine Past Surgical History: Cholecystectomy, Coronary Bypass/CABG Additional Past Surgical History / Comment(s): BKA, left lower leg, aortic bypass right leg, right leg fasciotomy. Past Anesthesia/Blood Transfusion Reactions: No Reported Reaction Additional Past Anesthesia/Blood Transfusion Reaction / Comment(s): pt stated has had a blood transfusion in past-no reaction. Past Psychological History: Anxiety, Depression Smoking Status: Never smoker - Past Family History Mother History Unknown: Yes Additional Family Medical History / Comment(s): MS, legally blind, cataracts Father Family Medical History: No Reported History Additional Family Medical History / Comment(s): Was younger when he , car accident General Exam - General Exam Comments Initial Comments: Physical Exam GENERAL: Chronically ill -appearing, underweight Appears uncomfortable HENT: Normocephalic, Atraumatic. EYES: PERRL, EOMI PULMONARY: Unlabored respirations CARDIOVASCULAR: RRR ABDOMEN: Soft Tenderness to palpation bilateral lower quadrants and suprapubic region, most prominent in the right lower quadrant SKIN: Skin is clear with no lesions or rashes and otherwise unremarkable. : Deferred NEUROLOGIC: Patient is alert and oriented x3. Moving all extremities spontaneously MUSCULOSKELETAL: Bilateral lower extremity amputations PSYCHIATRIC: Normal psychiatric evaluation. Limitations: no limitations Course Vital Signs 07/11/19 07/12/19 20:26 02:13 Temperature 98.1 F 98.3 F Pulse Rate 83 72 Respiratory 20 18 Rate Blood Pressure 134/81 130/77 O2 Sat by Pulse 100 98 Oximetry Medical Decision Making - Medical Decision Making The patient was seen and evaluated, history is obtained from the patient as well as review of medical record Patient with extensive past medical history presenting with abdominal pain, given the patient's chronic kidney disease CT with contrast is contraindicated therefore CT with only oral contrast will be performed Labs with leukopenia, normal kidney function, evidence of poor nutrition Computed tomography scan concerning for colitis Rocephin and Flagyl were ordered Was ordered for pain management The patient's multiple medical comorbidities we will plan to admit the patient for IV antibiotics, fluids and observation. - Lab Data Result diagrams: 07/11/19 22:23 07/11/19 22:23 Lab Results 07/11/19 07/11/19 07/11/19 Range/Units 22:23 22:23 22:23 WBC 3.5 L (3.8-10.6) k/uL RBC 4.18 (3.80-5.40) m/uL Hgb 12.5 (11.4-16.0) gm/dL Hct 39.7 (34.0-46.0) % MCV 95.0 D (80.0-100.0) fL MCH 30.0 (25.0-35.0) pg MCHC 31.5 (31.0-37.0) g/dL RDW 15.9 H (11.5-15.5) % Plt Count 290 (150-450) k/uL Neutrophils % 68 % Lymphocytes % 22 % Monocytes % 7 % Eosinophils % 3 % Basophils % 1 % Neutrophils # 2.4 (1.3-7.7) k/uL Lymphocytes # 0.8 L (1.0-4.8) k/uL Monocytes # 0.2 (0-1.0) k/uL Eosinophils # 0.1 (0-0.7) k/uL Basophils # 0.0 (0-0.2) k/uL Hypochromasia Slight Sodium 134 L (137-145) mmol/L Potassium 3.8 (3.5-5.1) mmol/L Chloride 105 (98-107) mmol/L Carbon Dioxide 24 (22-30) mmol/L Anion Gap 5 mmol/L BUN 12 (7-17) mg/dL Creatinine 0.89 (0.52-1.04) mg/dL Est GFR (CKD-EPI)AfAm 87 (>60 ml/min/1.73 sqM) Est GFR (CKD-EPI)NonAf 75 (>60 ml/min/1.73 sqM) Glucose 69 L (74-99) mg/dL Plasma Lactic Acid Faisal 0.9 (0.7-2.0) mmol/L Calcium 8.3 L (8.4-10.2) mg/dL Total Bilirubin 0.3 (0.2-1.3) mg/dL AST 42 H (14-36) U/L ALT 23 (9-52) U/L Alkaline Phosphatase 97 (38-126) U/L C-Reactive Protein 9.2 (<10.0) mg/L Total Protein 6.2 L (6.3-8.2) g/dL Albumin 2.8 L (3.5-5.0) g/dL Amylase 96 (30-110) U/L Lipase 18 L (23-300) U/L Urine Color Urine Appearance (Clear) Urine pH (5.0-8.0) Ur Specific [place] (1.001-1.035) Urine Protein (Negative) Urine Glucose (UA) (Negative) Urine Ketones (Negative) Urine Blood (Negative) Urine Nitrite (Negative) Urine Bilirubin (Negative) Urine Urobilinogen (<2.0) mg/dL Ur Leukocyte Esterase (Negative) 07/12/19 Range/Units 01:45 WBC (3.8-10.6) k/uL RBC (3.80-5.40) m/uL Hgb (11.4-16.0) gm/dL Hct (34.0-46.0) % MCV (80.0-100.0) fL MCH (25.0-35.0) pg MCHC (31.0-37.0) g/dL RDW (11.5-15.5) % Plt Count (150-450) k/uL Neutrophils % % Lymphocytes % % Monocytes % % Eosinophils % % Basophils % % Neutrophils # (1.3-7.7) k/uL Lymphocytes # (1.0-4.8) k/uL Monocytes # (0-1.0) k/uL Eosinophils # (0-0.7) k/uL Basophils # (0-0.2) k/uL Hypochromasia Sodium (137-145) mmol/L Potassium (3.5-5.1) mmol/L Chloride (98-107) mmol/L Carbon Dioxide (22-30) mmol/L Anion Gap mmol/L BUN (7-17) mg/dL Creatinine (0.52-1.04) mg/dL Est GFR (CKD-EPI)AfAm (>60 ml/min/1.73 sqM) Est GFR (CKD-EPI)NonAf (>60 ml/min/1.73 sqM) Glucose (74-99) mg/dL Plasma Lactic Acid Faisal (0.7-2.0) mmol/L Calcium (8.4-10.2) mg/dL Total Bilirubin (0.2-1.3) mg/dL AST (14-36) U/L ALT (9-52) U/L Alkaline Phosphatase (38-126) U/L C-Reactive Protein (<10.0) mg/L Total Protein (6.3-8.2) g/dL Albumin (3.5-5.0) g/dL Amylase (30-110) U/L Lipase (23-300) U/L Urine Color Yellow Urine Appearance Clear (Clear) Urine pH 6.5 (5.0-8.0) Ur Specific [place] 1.007 (1.001-1.035) Urine Protein Trace H (Negative) Urine Glucose (UA) Negative (Negative) Urine Ketones Trace H (Negative) Urine Blood Negative (Negative) Urine Nitrite Negative (Negative) Urine Bilirubin Negative (Negative) Urine Urobilinogen <2.0 (<2.0) mg/dL Ur Leukocyte Esterase Negative (Negative) Disposition Clinical Impression: Colitis Disposition: ADMITTED IP TO THIS [facility] Condition: Stable Is patient prescribed a controlled substance at d/c from ED?: No Referrals: Carissa Castro MD [Primary Care Provider] - 1-2 days
[2019-07-11] MEDS ORDERED: SODIUM CHLORIDE 0.9% 500 ML 500 ML IV STA (21:32)
[2019-07-11] MEDS ORDERED: SODIUM CHLORIDE 0.9% 1,000 ML IV STA (21:32)
[2019-07-11] MEDS ORDERED: IOPAMIDOL CONTRAST (ORAL USE) VIAL PO PRN (21:33)
[2019-07-11] MEDS: MORPHINE SULFATE 4 MG/ML SYRINGE IV STA (22:30)
[2019-07-11 22:41] LABS: Basophils % (A) 1 %; Eosinophils # (A) 0.1 k/uL (0-0.7); Eosinophils % (A) 3 %; HCT 39.7 % (34.0-46.0); HGB 12.5 gm/dL (11.4-16.0); Hypochromasia Slight; Lymphocytes # (A) 0.8 k/uL (1.0-4.8); Lymphocytes % (A) 22 %; MCHC 31.5 g/dL (31.0-37.0); Mean Platelet Volume 7.4; Monocytes # (A) 0.2 k/uL (0-1.0); Monocytes % (A) 7 %; Neutrophils # (A) 2.4 k/uL (1.3-7.7); Neutrophils % (A) 68 %; Platelet Count 290 k/uL (150-450); RBC 4.18 m/uL (3.80-5.40); RDW 15.9 % (11.5-15.5); WBC 3.5 k/uL (3.8-10.6)
[2019-07-11 22:56] LABS: Albumin 2.8 g/dL (3.5-5.0); C Reactive Protein 9.2 mg/L (<10.0); Calcium 8.3 mg/dL (8.4-10.2); Potassium 3.8 mmol/L (3.5-5.1); Total Bilirubin 0.3 mg/dL (0.2-1.3); Total Protein 6.2 g/dL (6.3-8.2)
--- NOTE | 2019-07-12 00:03 | CT ---
EXAM: CT Abdomen and Pelvis Without Intravenous Contrast CLINICAL HISTORY: ITS.REASON CT Reason: Pain TECHNIQUE: Axial computed tomography images of the abdomen and pelvis without intravenous contrast. CTDI is 7 mGy and DLP is 392.7 mGy-cm. This CT exam was performed using one or more of the following dose reduction techniques: automated exposure control, adjustment of the mA and/or kV according to patient size, and/or use of iterative reconstruction technique. COMPARISON: CT 06/02/19. FINDINGS: Limitations: Evaluation of the abdominal viscera is limited without intravenous contrast. Lung bases: Small left pleural effusion with basilar atelectasis/infiltrate. Heart: Trace pericardial fluid. Cardiomegaly. ABDOMEN: Liver: Unremarkable. Gallbladder and bile ducts: Cholecystectomy. Pancreas: Calcific density noted in the region of the pancreatic head. Spleen: Unremarkable. Adrenals: Stable appearance of the adrenal glands. Kidneys and ureters: Small renal calculi or vascular calcifications. Prominence of the left renal collecting system. No definite ureteral stone is visualized. Stomach and bowel: Areas of colonic wall thickening raising possibility of nonspecific colitis. Oral contrast material reaches the colon. PELVIS: Bladder: Mild bladder wall thickening. Reproductive: Unremarkable as visualized. ABDOMEN and PELVIS: Intraperitoneal space: Nonspecific mesenteric and retroperitoneal stranding and small free fluid. Bones/joints: No acute fracture. Soft tissues: Anasarca. Vasculature: Atherosclerotic disease and femoral bypass graft again noted. Lymph nodes: Suggestion of enlarged retroperitoneal lymph nodes. IMPRESSION: 1. Areas of colonic wall thickening raising possibility of nonspecific colitis. 2. Mild bladder wall thickening. 3. Nonspecific mesenteric and retroperitoneal stranding and small free fluid. 4. Small left pleural effusion with basilar atelectasis/infiltrate. 5. Additional findings, as above.
[2019-07-12] MEDS ORDERED: cefTRIAXone IN SWFI 1,000 MG/10 ML SYRINGE IVP STA (00:30)
[2019-07-12] MEDS ORDERED: metroNIDAZOLE-NS PMX 500 MG in SALINE 1 100ML.BAG IVPB STA (00:30)
[2019-07-12] MEDS ORDERED: MORPHINE SULFATE 4 MG/ML SYRINGE IV PRN (01:50)
[2019-07-12] MEDS: MORPHINE SULFATE 4 MG/ML SYRINGE IV STA (01:50)
[2019-07-12] MEDS ORDERED: NALOXONE 0.4 MG/ML 1 ML VIAL IV PRN (01:50)
[2019-07-12 02:06] LABS: Appearance,Urine Clear (Clear); Bilirubin,Urine Negative (Negative); Blood,Urine Negative (Negative); Color,Urine Yellow; Glucose,Urine (UA) Negative (Negative); Ketones,Urine Trace (Negative); Leukocyte Esterase,Urine Negative (Negative); Nitrite,Urine Negative (Negative); PH, Urine 6.5 (5.0-8.0); Protein,Urine Trace (Negative); Specific Gravity,Urine 1.007 (1.001-1.035); Urobilinogen,Urine <2.0 mg/dL (<2.0)
[2019-07-12 05:10] VITALS: BMI 17.6
[2019-07-12] MEDS: SODIUM CHLORIDE 0.9% 1,000 ML IV SCH ×2 (05:16→23:14)
[2019-07-12] MEDS: HYDROmorphone 0.5 MG/0.5 ML SYRINGE IVP PRN ×6 (05:16→23:41)
[2019-07-12] MEDS ORDERED: FAMOTIDINE 20 MG TAB PO PRN (08:29)
[2019-07-12] MEDS ORDERED: ALBUTEROL NEBULIZED 2.5 MG/3 ML INHALATION PRN (08:29)
[2019-07-12] MEDS ORDERED: IPRATROPIUM-ALBUTEROL 3 ML NEB INHALATION PRN (08:29)
[2019-07-12] MEDS ORDERED: NITROGLYCERIN SL TABS 0.4 MG TAB SUBLINGUAL PRN (08:29)
[2019-07-12] MEDS ORDERED: SUCRALFATE 1 GM TAB PO PRN (08:29)
[2019-07-12] MEDS ORDERED: CYCLOBENZAPRINE 10 MG TAB PO PRN (08:29)
[2019-07-12] MEDS ORDERED: ACETAMINOPHEN TAB 500 MG TAB PO PRN (08:29)
[2019-07-12] MEDS ORDERED: FUROSEMIDE 40 MG TAB PO PRN (08:29)
[2019-07-12] MEDS: CLOPIDOGREL 75 MG TAB PO SCH (08:49)
[2019-07-12] MEDS: ENOXAPARIN 40 MG/0.4 ML SYRINGE SQ SCH ×2 (08:49→20:23)
[2019-07-12] MEDS: LISINOPRIL 5 MG TAB PO SCH (08:49)
[2019-07-12] MEDS: SYMBICORT 80-4.5 MCG INHALER INHALATION SCH ×2 (11:03→20:41)
[2019-07-12] MEDS: CARVEDILOL 6.25 MG TAB PO SCH (16:11)
--- NOTE | 2019-07-12 18:45 | HP ---
HISTORY AND PHYSICAL CHIEF COMPLAINT: Abdominal pain. HISTORY OF PRESENT ILLNESS: This patient is a 49-year-old woman with a past medical history of multiple medical problems, including sticky platelet syndrome, DVT, DJD, pulmonary embolism, CVA, TIA, CAD, CABG, bilateral below-knee amputations as well as graft, anxiety and depression. The patient is followed by Dr. Carissa Castro in the outpatient setting. The patient is complaining of abdominal pain which diffusely, and the patient came to the emergency room and was admitted for further evaluation and treatment. Evaluation in the ER included a CT scan of the abdomen and pelvis which showed evidence of colonic wall thickening with nonspecific colitis, and patient was admitted for further evaluation and treatment. Nonspecific mesenteric and retroperitoneal stranding was also noted. There is no history of any fever, rigor or chills. No history of headache, loss of consciousness, seizures at this time. PAST MEDICAL HISTORY: 1. Asthma. 2. CVA, TIA. 3. DVT. 4. History of DJD. 5. History of pulmonary embolism. 6. History of sticky platelet syndrome. 7. History of bronchitis. 8. ESBL E coli. HOME MEDICATIONS: 1. Carafate 1 gram p.o. daily p.r.n. 2. Nitrostat 0.4 subcutaneously p.r.n. 3. Zestril 5 mg p.o. daily. 4. DuoNeb q.i.d. p.r.n. 5. Dilaudid 8 mg p.o. t.i.d. p.r.n. 6. Lasix 40 mg p.o. daily p.r.n. 7. Advair 250/50 one puff b.i.d. 8. Pepcid 20 mg daily p.r.n. 9. Lovenox 40 units subcutaneously b.i.d. 10.Flexeril 10 mg t.i.d. p.r.n. 11.Plavix 75 mg p.o. daily. 12.Coreg 6.25 mg b.i.d. with meals. 13.ProAir HFA 1 puff q.6 p.r.n. 14.Tylenol 500 mg q.6 p.r.n. 15.Xanax 2 mg daily p.r.n. ALLERGIES: IBUPROFEN and TRAZODONE. FAMILY HISTORY: History of multiple sclerosis, legal blindness and cataracts. SOCIAL HISTORY: No history of smoking. No history of alcohol intake. REVIEW OF SYSTEMS: ENT: No diminished hearing. No diminished vision. CARDIOVASCULAR SYSTEM: No angina, palpitations. RESPIRATORY SYSTEM: As mentioned earlier. GI: As mentioned earlier. : No dysuria or retention. NERVOUS SYSTEM: No numbness, weakness. ALLERGY/IMMUNOLOGY: No asthma, hayfever. MUSCULOSKELETAL: As mentioned earlier. HEMATOLOGY/ONCOLOGY: No history of anemia. ENDOCRINE: As mentioned earlier. CONSTITUTIONAL: As mentioned earlier. DERMATOLOGY: Negative. RHEUMATOLOGY: Negative. PSYCHIATRY: As mentioned earlier. PHYSICAL EXAMINATION: Patient alert and oriented x3. Pulse 64, blood pressure 123/72, respiration 16, temperature 98 degrees, pulse ox 100% on room air. HEENT: Conjunctivae normal. Oral mucosa moist. NECK: No jugular venous distention. No carotid bruit. No lymph node enlargement. CARDIOVASCULAR SYSTEM: S1, S2 muffled. RESPIRATORY SYSTEM: Breath sounds diminished at the bases. No rhonchi. No crackles. ABDOMEN: Soft. Mild diffuse tenderness present. Otherwise, no guarding, no rigidity. No mass palpable. LEGS: No edema. No swelling. NERVOUS SYSTEM: Higher functions as mentioned earlier. Moves all 4 limbs. No focal deficit. SKIN: No ulcer, rash, bleeding. JOINTS: No active deforming arthropathy. LABS: WBC 3.5, hemoglobin 12.5. Sodium 134. Glucose 169. AST is 42, lipase 18. UA noted. ASSESSMENT: 1. Abdominal pain with possible nonspecific colitis. 2. Leukopenia, mild. 3. History of cerebrovascular accident, transient ischemic attack. 4. Deep venous thrombosis history. 5. History of asthma. 6. History of degenerative joint disease. 7. History of pulmonary embolism. 8. History of sticky platelet syndrome. 9. History of bronchitis. 10.History extended-spectrum beta-lactamase Escherichia coli. 11.History of coronary artery disease, coronary artery bypass grafting. 12.History of cholecystectomy. 13.History of left leg below-knee amputation. 14.History of bypass, right leg and right leg fasciotomy. 15.Anxiety, depression. RECOMMENDATIONS AND DISCUSSION: In this 49-year-old woman who presented with multiple complex medical issues, at this time I recommend to continue current management, continue symptomatic treatment. Will initiate empiric antibiotics. I would also recommend gastroenterology evaluation for evaluation and possible endoscopies. Guarded prognosis because of multiple complex medical issues. Further recommendations to follow. See orders for further details. A copy of this dictation is being forwarded to Dr. Carissa Castro, who is the primary physician. MMODL / IJN: [id number] / MTDD
[2019-07-12] MEDS: ALPRAZolam 1 MG TAB PO PRN (23:49)
[2019-07-13] MEDS: SYMBICORT 80-4.5 MCG INHALER INHALATION SCH ×2 (07:33→20:35)
[2019-07-13] MEDS: CLOPIDOGREL 75 MG TAB PO SCH (07:59)
[2019-07-13] MEDS: ENOXAPARIN 40 MG/0.4 ML SYRINGE SQ SCH ×2 (07:59→21:28)
[2019-07-13] MEDS: CARVEDILOL 6.25 MG TAB PO SCH ×2 (07:59→17:48)
[2019-07-13] MEDS: HYDROmorphone 0.5 MG/0.5 ML SYRINGE IVP PRN ×4 (07:59→22:54)
[2019-07-13] MEDS: LISINOPRIL 5 MG TAB PO SCH (07:59)
--- NOTE | 2019-07-13 14:13 | PN ---
PROGRESS NOTE DATE OF SERVICE: 07/13/2019 This is a 49-year-old woman who was admitted with abdominal pain and nonspecific colitis, complaining of abdominal pain. No chest pain. No palpitations. No fever. Gastroenterology evaluation in progress. No cough. PHYSICAL EXAM: Alert and oriented x3, pulse is 64, blood pressure 140/70, respiration 16, temperature 97.7, pulse ox 100% on room air. HEENT: Conjunctivae normal. NECK: No jugular venous distension. CARDIOVASCULAR: S1, S2, muffled. RESPIRATORY: Breath sounds diminished at the bases, no rhonchi, no crackles. ABDOMEN: Soft. Mild diffuse discomfort on palpation. No guarding. No mass palpable. LEGS: No edema, no swelling. NERVOUS SYSTEM: Unchanged. LABS: WBC is 3.5, hemoglobin is 12.2, sodium 134. ASSESSMENT: 1. Abdominal pain with possible nonspecific colitis. 2. Leukopenia, mild. 3. History of cerebrovascular accident, transient ischemic attack. 4. History of deep venous thrombosis. 5. History of asthma. 6. History of degenerative joint disease. 7. History of pulmonary embolism. 8. History of sticky platelet syndrome. 9. History of full bronchitis. 10.History ESBL Escherichia coli. 11.History of coronary artery disease, coronary artery bypass grafting. 12.History of cholecystectomy. 13.History of left leg below-knee amputation. 14.History of right leg vascular bypass and right leg fasciotomy. 15.Anxiety, depression. RECOMMENDATION: Recommend to continue current management and symptomatic treatment, continue with Gastroenterology evaluation. Empiric antibiotics. Otherwise, advance type Gastroenterology. Guarded prognosis. Further recommendations to follow. MMODL / IJN: [id number] /
[2019-07-13] MEDS: LEVOFLOXACIN 500MG-D5W PMX 500 MG in DEXTROSE/WATER 1 100ML.BAG IVPB SCH (14:55)
--- NOTE | 2019-07-13 15:19 | CONS ---
CONSULTATION DATE OF DICTATION: 07/13/2019 REQUESTING PHYSICIAN: Dr. Carissa Castro. REASON FOR CONSULTATION: Abdominal pain. HISTORY OF PRESENT ILLNESS: The patient is a 49-year-old female, came to the emergency room with acute onset of lower abdominal pain that started about 2 days ago. The pain was diffusely involving the lower abdomen, associated with some nausea but no emesis. She denies any diarrhea, constipation, or rectal bleeding. In fact, was having normal bowel movements. Came to the emergency room and she had a CT of the abdomen and pelvis done that showed some nonspecific colonic wall thickening consistent with colitis and patient was empirically started on IV Levaquin. She is feeling somewhat better today. Still has some discomfort on a clear liquid diet, tolerating well, asking for diet advancement. She never had these symptoms in the past. No history of inflammatory bowel disease. No recent antibiotic use. PAST MEDICAL HISTORY: Decreased platelet syndrome resulting in multiple embolic events, history of DVT/PE in the past on Lovenox and Plavix. He has history of CVA, TIA, asthma. PAST SURGICAL HISTORY: Bilateral above knee amputations colonoscopy 7 many years ago, coronary artery bypass surgery, cholecystectomy, aortic bypass, right leg. MEDICATIONS: At home include DuoNeb, Pepcid, Lasix, Carafate, Dilaudid, Lovenox, Xanax, bilirubin and Flexeril Plavix at. ALLERGIES: To IBUPROFEN and Trazodone. SOCIAL HISTORY: No smoking. No alcohol use. FAMILY HISTORY: Mother, multiple sclerosis. Father, in a car accident. REVIEW OF SYSTEMS: CARDIOPULMONARY: No chest pain, shortness of breath. MUSCULOSKELETAL: Unremarkable. SKIN: Unremarkable. ENDOCRINE: Unremarkable. PSYCHIATRIC: Unremarkable. NEUROLOGY: Unremarkable. ENT/VISION: Unremarkable. CARDIOVASCULAR: Unremarkable. CONSTITUTIONAL: No recent weight loss. No fever, chills, night sweats. PHYSICAL EXAMINATION: Blood pressure 155/82, pulse 56, temperature 97. HEENT: Examination unremarkable. Conjunctivae are pink, sclerae nonicteric, oral cavity no lesions. CHEST: Clear to auscultation. HEART: Regular rate and rhythm. ABDOMEN: Soft. There was very minimal tenderness in the suprapubic area. No organomegaly. EXTREMITIES: No pedal edema. SKIN: No rashes. EXTREMITIES: Bilateral [id number] amputations. NEUROLOGIC: Alert and oriented x3. No focal deficits. LABS: At the time of admission to the hospital yesterday, WBC 3.5, hemoglobin normal, platelets normal. Basic metabolic panel is within normal limits. AST 42, ALT 23, T bilirubin and alkaline phosphatase normal. Lipase is 18. Urinalysis is negative. CT of the abdomen and pelvis showed mild colonic wall thickening, consistent with nonspecific colitis. Small left-sided pleural effusion. Mild bladder wall thickening. Nonspecific mesenteric and retroperitoneal stranding noted. IMPRESSION: 1. This lady admitted to the hospital with acute onset of lower abdominal pain for the last 2 days' duration with no significant change in her bowel habits. Some nausea, but no emesis. No fever, chills, night sweats. CT of the abdomen did show some nonspecific thickening of the colon suspicious for acute colitis. Patient on empiric antibiotics with IV Levaquin and her symptoms are gradually improving. No history of inflammatory bowel disease. 2. History of sticky platelet syndrome, on Lovenox and Plavix. 3. Peripheral vascular disease related to sticky platelets syndrome. RECOMMENDATIONS: 1. Advance diet as tolerated. 2. Continue with empiric antibiotics. 3. If symptoms improve, she can be discharged home and can follow her on outpatient basis and based on her clinical progress, will consider an outpatient colonoscopy. The plan was discussed with the patient. She is agreeable to it. Thank you for this consultation. SOO / JANES: [id number] /
[2019-07-13] MEDS: SODIUM CHLORIDE 0.9% 1,000 ML IV SCH (17:18)
[2019-07-14] MEDS: ONDANSETRON 4 MG/2 ML VIAL IVP PRN ×2 (01:56→09:17)
[2019-07-14] MEDS: HYDROmorphone 0.5 MG/0.5 ML SYRINGE IVP PRN ×5 (02:46→20:46)
[2019-07-14] MEDS: ENOXAPARIN 40 MG/0.4 ML SYRINGE SQ SCH ×2 (08:14→20:47)
[2019-07-14] MEDS: LISINOPRIL 5 MG TAB PO SCH (08:14)
[2019-07-14] MEDS: CARVEDILOL 6.25 MG TAB PO SCH ×2 (08:14→17:46)
[2019-07-14] MEDS: CLOPIDOGREL 75 MG TAB PO SCH (08:14)
[2019-07-14] MEDS: SYMBICORT 80-4.5 MCG INHALER INHALATION SCH ×2 (09:35→20:26)
[2019-07-14] MEDS: SODIUM CHLORIDE 0.9% 1,000 ML IV SCH (15:52)
[2019-07-14] MEDS: LEVOFLOXACIN 500MG-D5W PMX 500 MG in DEXTROSE/WATER 1 100ML.BAG IVPB SCH (15:52)
--- NOTE | 2019-07-14 17:03 | PN ---
PROGRESS NOTE DATE OF DICTATION: 07/14/2019 Patient is a 49-year-old -[place] female who came into the emergency room with acute onset of lower abdominal pain for the last [address] of the abdomen showed nonspecific thickening of the colon and she is presently on empiric antibiotics for possible colitis. This morning she states that her symptoms are progressively getting worse. She had worsening abdominal pain all through last night. She felt feverish, but no documented fever, and she had some nausea but no emesis. PHYSICAL EXAMINATION: VITAL SIGNS: Temperature 98.1, blood pressure 90/60, pulse rate 94. HEENT examination unremarkable. Conjunctivae pink. Sclerae anicteric. Oral cavity no lesions. NECK: No JVD or lymph node enlargement. CHEST: Clear to auscultation. HEART: Regular rate and rhythm. ABDOMEN: Soft. There was minimal tenderness in the suprapubic area. The rest of the abdomen was benign. EXTREMITIES: No pedal edema. SKIN: No rashes. NEUROLOGIC: Alert and oriented x3. No focal deficits. LABS: No labs available from today. Labs were being drawn as I was interviewing the patient. IMPRESSION: 1. Lower abdominal pain of 3 days' duration, on empiric antibiotics with Levaquin. The patient remains symptomatic with lower abdominal discomfort, had 2 loose bowel movements today, but no bleeding. Possible colitis. 2. History of sticky platelet syndrome, on Lovenox and Plavix. 3. History of coronary artery disease, status post coronary artery bypass grafting. 4. Peripheral vascular disease. 5. Bilateral above-knee amputations. RECOMMENDATIONS: 1. Continue with broad-spectrum antibiotics. 2. Await lab results from today. 3. Advance diet as tolerated. 4. Will follow the patient closely. If she continues to have persistent symptoms, we may consider doing a colonoscopy during this hospitalization, but preferably on an outpatient basis if her symptoms improve. The plan was discussed with the patient. She is agreeable to it. Thank you for this consultation. MMODL / IJN: [id number] /
--- NOTE | 2019-07-14 18:24 | PN ---
PROGRESS NOTE DATE OF SERVICE: 07/14/2019 This 49-year-old woman who was admitted with abdominal pain with nonspecific colitis is improving significantly, is being closely monitored. No chest pain. No palpitations. Dr. Back evaluated the patient and recommended possible outpatient colonoscopy. No chest pain. No palpitations. No fever. Patient complaining of severe abdominal pain. EXAM: Alert and oriented times three. Pulse 60, blood pressure 90/60, respiration 14, temperature 98.1, pulse ox 98% on room air. HEENT: Conjunctivae normal. NECK: No JVD. No carotid bruit. No lymph node enlargement. CARDIOVASCULAR: S1, S2 muffled. RESPIRATORY: Breath sounds diminished in the bases. No rhonchi. No crackles ABDOMEN: Soft, mild diffuse tenderness present. No guarding. No rigidity. No mass palpable. NERVOUS SYSTEM: Unchanged. LABS: WBC 3.5, hemoglobin 12.5. ASSESSMENT: 1. Abdominal pain with possible nonspecific colitis. 2. Leukopenia, mild. 3. History of cerebrovascular accident, transient ischemic attack. 4. History of deep vein thrombosis. 5. History of asthma. 6. History of degenerative joint disease. 7. History of pulmonary embolus. 8. History of sticky platelet syndrome. 9. History of bronchitis. 10.History of ESBL E coli. 11.History of coronary artery disease, coronary artery bypass grafting. 12.History of cholecystectomy. 13.History of left leg below-knee amputation. 14.History of right leg bypass surgery with right leg fasciotomy. 15.Anxiety, depression history. RECOMMENDATIONS AND DISCUSSION: Recommend to continue current medications, management. Symptomatic treatment. Repeat labs. Continue with IV antibiotics. Dr. Back's input appreciated. Further recommendations to follow. Discussed with the patient's family who understands and agrees. MMODL / IJN: [id number] /
[2019-07-14] MEDS: ALPRAZolam 1 MG TAB PO PRN (20:51)
[2019-07-15 02:47] VITALS: PULSE 62
[2019-07-15] MEDS: HYDROmorphone 0.5 MG/0.5 ML SYRINGE IVP PRN ×3 (04:21→13:48)
[2019-07-15] MEDS: CARVEDILOL 6.25 MG TAB PO SCH (08:05)
[2019-07-15] MEDS: LISINOPRIL 5 MG TAB PO SCH (08:05)
[2019-07-15] MEDS: CLOPIDOGREL 75 MG TAB PO SCH (08:05)
[2019-07-15] MEDS: ENOXAPARIN 40 MG/0.4 ML SYRINGE SQ SCH (08:05)
[2019-07-15] MEDS: SYMBICORT 80-4.5 MCG INHALER INHALATION SCH (09:03)
[2019-07-15 09:42] LABS: Calcium 7.8 mg/dL (8.4-10.2)
[2019-07-15 10:28] LABS: Basophils # (A) 0.1 k/uL (0-0.2); Basophils % (A) 2 %; Eosinophils # (A) 0.2 k/uL (0-0.7); Eosinophils % (A) 5 %; HCT 39.8 % (34.0-46.0); Hypochromasia Marked; Lymphocytes # (A) 0.9 k/uL (1.0-4.8); Lymphocytes % (A) 24 %; MCH 29.3 pg (25.0-35.0); MCV 97.6 fL (80.0-100.0); Mean Platelet Volume 7.1; Monocytes # (A) 0.3 k/uL (0-1.0); Monocytes % (A) 8 %; Neutrophils # (A) 2.2 k/uL (1.3-7.7); Neutrophils % (A) 60 %; Platelet Count 258 k/uL (150-450); RBC 4.08 m/uL (3.80-5.40); RDW 15.1 % (11.5-15.5); WBC 3.7 k/uL (3.8-10.6)
[2019-07-15 11:15] LABS: Poikilocytosis (M) Present
[2019-07-15] MEDS: LEVOFLOXACIN 500MG-D5W PMX 500 MG in DEXTROSE/WATER 1 100ML.BAG IVPB SCH (13:48)
[2019-07-15] MEDS: SODIUM CHLORIDE 0.9% 1,000 ML IV SCH (13:49)
[2019-07-15 14:45] VITALS: BP 115/73; RESP 16; TEMP 98.1
--- NOTE | 2019-07-16 03:43 | DS ---
DISCHARGE SUMMARY DATE OF SERVICE: 07/15/2019. FINAL DIAGNOSES: 1. Abdominal pain possible nonspecific colitis. 2. Leukopenia, mild. 3. History of cerebrovascular accident, transient ischemic attack. 4. History of deep vein thrombosis. 5. History of asthma. 6. History of degenerative joint disease. 7. History of pulmonary embolism. 8. History of sticky platelet syndrome. 9. History of bronchitis. 10.History of ESBL E coli. 11.History of coronary artery disease, coronary artery bypass grafting. 12.History of cholecystectomy. 13.History of left leg below knee amputation. 14.History of right leg bypass surgery and right leg fasciotomy. 15.History of anxiety, depression. DISCHARGE DISPOSITION: The patient will be discharged in stable condition with guarded prognosis. HISTORY OF PRESENT ILLNESS: This 49-year-old woman with a past medical history of multiple medical problems was admitted with abdominal pain, nonspecific colitis. Patient treated symptomatically. Dr. Back saw the patient and recommended outpatient followup. Patient improved significantly. Dr. Gardiner also saw the patient. On exam, vitals are stable. Cardiovascular S1, S2. Abdomen soft. Nontender. Nervous system: No focal deficits. DISCHARGE ADVICE AND MEDICATIONS: 1. Diet is cardiac diet. 2. Activity limited until followup. 3. Follow up with Dr. Carissa Castro in 2-3 days. [address] Follow[address] with Dr. Back as advised. 5. Follow with Dr. Gardiner as advised. DISCHARGE MEDICATIONS: 1. Advair 250-50 1 puff b.i.d. 2. Carafate 1 g daily p.r.n. 3. Dilaudid 8 mg t.i.d. p.r.n. 4. DuoNeb q.i.d. p.r.n. 5. Flexeril 10 mg p.o. t.i.d. p.r.n. 6. Lasix 40 mg daily p.r.n. 7. Lovenox 40 mg subcu b.i.d. 8. Pepcid 20 mg daily p.r.n. 9. Plavix 75 mg p.o. daily. 10.ProAir 1 puff q.6h p.r.n. 11.Xanax 2 mg daily p.r.n. 12.Coreg 6.25 mg p.o. b.i.d. 13.Levaquin 500 mg daily for 3 days. 14.Nitrostat p.r.n. 15.Tylenol 500 mg q.6h p.r.n. 16.Zestril 5 mg p.o. daily. Once again, the patient being discharged in stable condition with guarded prognosis. MMODL / IJN: [id number] /
== END 2019-07-15 17:12 | disposition home or self-care (01) ==
LOC: EC 20:25 → 4MS4W 07-12 01:50 → EC 07-12 04:40
PROVIDERS: ADMIT Hospitalist; ATTEND Hospitalist
DX: R10.30 Lower abdominal pain, unspecified (principal); R11.0 Nausea; M54.5 Low back pain; D72.819 Decreased white blood cell count, unspecified; J45.909 Unspecified asthma, uncomplicated; M19.90 Unspecified osteoarthritis, unspecified site; I25.10 Atherosclerotic heart disease of native coronary artery without angina pectoris; F41.9 Anxiety disorder, unspecified; F32.9 Major depressive disorder, single episode, unspecified; I73.9 Peripheral vascular disease, unspecified; N18.9 Chronic kidney disease, unspecified; D69.1 Qualitative platelet defects; Z86.73 Personal history of transient ischemic attack (TIA), and cerebral infarction without residual deficits; Z86.718 Personal history of other venous thrombosis and embolism; Z86.711 Personal history of pulmonary embolism; Z86.19 Personal history of other infectious and parasitic diseases; Z87.09 Personal history of other diseases of the respiratory system; Z95.1 Presence of aortocoronary bypass graft; Z90.49 Acquired absence of other specified parts of digestive tract; Z89.512 Acquired absence of left leg below knee; Z79.01 Long term (current) use of anticoagulants; Z79.899 Other long term (current) drug therapy; Z79.02 Long term (current) use of antithrombotics/antiplatelets; Z79.891 Long term (current) use of opiate analgesic; Z88.6 Allergy status to analgesic agent; Z88.8 Allergy status to other drugs, medicaments and biological substances; Z82.1 Family history of blindness and visual loss; Z82.0 Family history of epilepsy and other diseases of the nervous system
CPT/HCPCS: 96376 ×5; 96361 ×3; 96365 ×2; 96366 ×5; 96375 ×4; 96372 ×4; 99285; 36415; 94640 ×5; 80053; 80048; 82150; 83605; 83690; 85025 ×2; 86140; 81003; 87040; 74176; G0378 ×4; J2270 ×2; J2405; J1956 ×3; J1650 ×4; J0696; J1170 ×4; 96367

== ENCOUNTER → 2019-08-04 | Outpatient (CLI) | payer MEDICARE, OTHER ==
[2019-08-04 11:29] LABS: HCT 39.3 % (34.0-46.0); HGB 12.1 gm/dL (11.4-16.0); Hypochromasia Moderate; MCH 29.4 pg (25.0-35.0); MCHC 30.8 g/dL (31.0-37.0); MCV 95.6 fL (80.0-100.0); Mean Platelet Volume 6.6; Platelet Count 290 k/uL (150-450); RBC 4.11 m/uL (3.80-5.40); RDW 14.9 % (11.5-15.5)
[2019-08-04 17:14] LABS: Iron Saturation 12.06 (12.00-45.00)
[2019-08-04 17:25] LABS: Ferritin 94.1 ng/mL (10.0-291.0); Vitamin D 25 Hydroxy 13.6 ng/mL (30.0-100.0)
[2019-08-04 17:34] LABS: Albumin 3.3 g/dL (3.80-4.90); Albumin/Globulin Ratio 1.03 (1.60-3.17); Anion Gap 9.3 mmol/L (4.00-12.00); BUN/Creat Ratio 16.15 Ratio (12.00-20.00); Calcium 8.6 mg/dL (8.7-10.3); Carbon Dioxide 22.7 mmol/L (21.6-31.8); Globulin 3.2 g/dL (1.6-3.3); Magnesium 1.9 mg/dL (1.5-2.4); Phosphorus 3.9 mg/dL (2.4-5.1); Potassium 4.5 mmol/L (3.5-5.5); Total Bilirubin 0.1 mg/dL (0.3-1.2); Total Protein 6.5 g/dL (6.2-8.2); Uric Acid 6.4 mg/dL (2.9-7.7)
== END | disposition home or self-care (01) ==
LOC: LABWHC1 10:34
PROVIDERS: ATTEND Internal Medicine
DX: M10.9 Gout, unspecified (principal); E55.9 Vitamin D deficiency, unspecified; N39.0 Urinary tract infection, site not specified; N17.9 Acute kidney failure, unspecified; R33.9 Retention of urine, unspecified; D64.9 Anemia, unspecified; N25.81 Secondary hyperparathyroidism of renal origin
CPT/HCPCS: 36415; 80053; 82306; 82728; 83540; 83550; 83735; 83970; 84100; 84550; 85027

== ENCOUNTER 2019-08-11 11:00 | Day surgery (SDC) | payer MEDICARE, OTHER ==
[2019-08-11 12:06] VITALS: RESP 16; TEMP 97.6
[2019-08-11] MEDS ORDERED: LACTATED RINGERS 1,000 ML IV ONE (12:38)
[2019-08-11] MEDS ORDERED: LIDOCAINE 1% INJ 10MG/ML (20 ML MDV) ONE (12:40)
[2019-08-11] MEDS ORDERED: MIDAZOLAM 2 MG/2 ML VIAL ONE (12:40)
[2019-08-11] MEDS ORDERED: fentaNYL (PF) 50 MCG/ML 2 ML AMP ONE (12:40)
[2019-08-11] MEDS ORDERED: PROPOFOL 10 MG/ML 20 ML VIAL IV ONE (12:40)
--- NOTE | 2019-08-11 13:03 | P.PCN ---
Date of Procedure: 08/11/19 Procedure(s) Performed: BRIEF HISTORY: Patient is a 49-year-old pleasant -[place] female scheduled for an elective colonoscopy as a part of screening for colorectal neoplasia. She was recently admitted to the hospital with lower abdominal pain and CAT scan showed evidence of colitis and was treated with empiric antibiotics and discharged home. She still has intermittent lower abdominal pain. PROCEDURE PERFORMED: Colonoscopy snare polypectomy. PREOPERATIVE DIAGNOSIS: Screening for colon cancer. IV sedation per Anesthesia. PROCEDURE: After informed consent was obtained, the patient, was brought into the endoscopy unit. IV sedation was administered by Anesthesia under continuous monitoring. Digital rectal examination was normal. Initially the Olympus CF-160 flexible video colonoscope was then inserted in the rectum, gradually advanced into the cecum without any difficulty. Careful examination was performed as the scope was gradually being withdrawn. Ileocecal valve and the appendiceal orifice were visualized and appeared normal. Prep was fair.. Mucosa of the cecum, ascending colon, transverse colon, appeared normal. The descending colon there was a 1 cm broad-based polyp removed by snare polypectomy. Rest of the descending colon, sigmoid colon, and rectum appeared normal. Retroflexion was performed in the rectum and no lesions were seen. The patient tolerated the procedure well. IMPRESSION: 1 cm descending colon polyp status post polypectomy Rest of the colon appeared normal RECOMMENDATIONS: Findings of this examination were discussed with the patient as well as a family. She was advised to follow with the biopsy results. If the biopsy shows an adenoma she can have a repeat colonoscopy in 3 years. She will resume Plavix and Lovenox today.
[2019-08-11] MEDS ORDERED: LACTATED RINGERS 1,000 ML IV SCH (13:17)
[2019-08-11] MEDS ORDERED: LIDOCAINE 1% 20 ML VIAL (10MG/ML) FOR IV START INTRADERMA PRN (13:17)
[2019-08-11 13:22] VITALS: BP 130/83; PULSE 64
== END 2019-08-11 13:43 | disposition home or self-care (01) ==
LOC: ORWHC2ENDO 11:00
PROVIDERS: ATTEND Internal Medicine Gastroenterology
DX: D12.4 Benign neoplasm of descending colon (principal); J40 Bronchitis, not specified as acute or chronic; D69.1 Qualitative platelet defects; M19.90 Unspecified osteoarthritis, unspecified site; I69.328 Other speech and language deficits following cerebral infarction; Z79.82 Long term (current) use of aspirin; Z79.51 Long term (current) use of inhaled steroids; Z79.02 Long term (current) use of antithrombotics/antiplatelets; Z79.01 Long term (current) use of anticoagulants; Z79.899 Other long term (current) drug therapy; Z88.6 Allergy status to analgesic agent; Z88.8 Allergy status to other drugs, medicaments and biological substances; Z86.711 Personal history of pulmonary embolism; Z86.718 Personal history of other venous thrombosis and embolism
CPT/HCPCS: 88305; 45385; J2250; J2001; J3010; J2704

== ENCOUNTER → 2019-08-15 | Outpatient (CLI) | payer MEDICARE, OTHER ==
--- NOTE | 2019-08-15 07:56 | US ---
EXAMINATION TYPE: US abdomen complete DATE OF EXAM: 08/15/2019 COMPARISON: NONE CLINICAL HISTORY: R74.8 elevated liver enzymes. elevated labs, abd pain, PAD, bilateral above knee am putee EXAM MEASUREMENTS: Liver Length: 14.9 cm Gallbladder Wall: surgically absent CBD: 0.7 Spleen: N/A Right Kidney: 8.6 x 3.7 x 2.9 cm Left Kidney: 9.5 x 2.9 x 4.8 cm Pancreas: wnl Liver: wnl Gallbladder: surgically absent Evidence for sonographic Choi's sign: no CBD: wnl Spleen: unable to visualize due to bowel gas Right Kidney: wnl Left Kidney: Limited evaluation Upper IVC: wnl Abd Aorta: mid/distal level appear to have internal echoes with minimal to no flow detected The liver is homogenous. The intrahepatic portion of the IVC and proximal abdominal aorta are within normal limits.. Common bile duct is unremarkable for postcholecystectomy status. The visualized po rtions of the pancreas are homogenous. The spleen is nonvisualized. Kidneys are symmetric and free of hydronephrosis. No renal lesions are grossly seen seen. IMPRESSION: 1. Extensive atheromatous change of the abdominal aorta with only minimal flow detected of the mid ab dominal aorta extending into the distal abdominal aorta. 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 CTA abdomen and pelvis is recommended to evaluate the abdominal aorta. 2. Surgical absence of the gallbladder with minimal dilatation of the common bile duct, within normal limits postcholecystectomy status. 3. Limited evaluation of the spleen and left kidney (nonvisualization of the spleen). 4. The liver is homogeneous sonographically despite abnormal liver function tests.
== END | disposition home or self-care (01) ==
LOC: RADUSWWP 06:47
PROVIDERS: ATTEND Family Medicine
DX: I77.811 Abdominal aortic ectasia (principal); I70.0 Atherosclerosis of aorta; K76.89 Other specified diseases of liver; Z90.49 Acquired absence of other specified parts of digestive tract
CPT/HCPCS: 76700

== ENCOUNTER 2019-12-24 13:27 | Emergency (ER) | payer MEDICARE ==
[2019-12-24] MEDS ORDERED: HYDROmorphone 1 MG/ML 1 ML SYRINGE IVP STA (13:38)
[2019-12-24 13:40] VITALS: RESP 18; TEMP 98
--- NOTE | 2019-12-24 14:09 | ED ---
General Adult HPI - General Chief complaint: Fall Stated complaint: Fall Time Seen by Provider: 12/24/19 13:33 Source: patient, EMS, RN notes reviewed Mode of arrival: EMS Limitations: physical limitation - History of Present Illness Initial comments: This a 49-year-old female presents emergency department via EMS chief complaint of left hip pain, low back pain. Patient states that she believes she rolled out of her bed. Patient was on the ground complains of pain in her left hip where she felt. Patient states that she may have struck her head on the commode but is not exactly sure. Patient denies any headache, neck pain. Patient states she did not take anything for pain is morning she normal takes morphine. Patient was given fentanyl by EMS. Patient does admit that she has a follow-up appointment this upcoming week to have morphine put in her pain pump she had this placed by Dr. Maria. Patient offers no other complaints. 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 - Related Data Home Medications Medication Instructions Recorded Confirmed Clopidogrel Bisulfate [Plavix] 75 mg PO DAILY 12/06/18 08/11/19 Cyclobenzaprine [Flexeril] 10 mg PO TID PRN 12/27/18 08/11/19 Albuterol Sulfate [Proair Hfa] 1 puff INHALATION RT-Q6H PRN 04/09/19 08/11/19 ALPRAZolam [Xanax] 2 mg PO DAILY PRN 05/01/19 08/11/19 Enoxaparin [Lovenox] 40 mg SQ BID 05/01/19 08/11/19 HYDROmorphone HCL [Dilaudid] 8 mg PO TID PRN 05/01/19 08/11/19 Sucralfate [Carafate] 1 gram PO DAILY PRN 05/01/19 08/11/19 Furosemide [Lasix] 40 mg PO DAILY PRN 05/11/19 08/11/19 Fluticasone/Salmeterol [Advair 1 puff INHALATION RT-BID 05/17/19 08/11/19 250-50 Diskus] Famotidine [Pepcid] 20 mg PO DAILY PRN 06/03/19 08/11/19 Ipratropium-Albuterol Nebulize 3 ml INHALATION RT-QID PRN 07/11/19 08/11/19 [Duoneb 0.5 mg-3 mg/3 ml Soln] Morphine Sulfate [Morphine Sulfate 30 mg PO BID PRN 08/11/19 08/11/19 ER] Previous Rx's Medication Instructions Recorded Nitroglycerin Sl Tabs [Nitrostat] 0.4 mg SUBLINGUAL Q5M PRN tab 12/28/18 Carvedilol [Coreg] 6.25 mg PO BID-W/MEALS #60 tab 04/12/19 Lisinopril [Zestril] 5 mg PO DAILY #30 tab 04/12/19 Acetaminophen Tab [Tylenol] 500 mg PO Q6HR PRN tab 05/14/19 Allergies Allergy/AdvReac Type Severity Reaction Status Date / Time ibuprofen Allergy Unknown Verified 07/11/19 21:04 trazodone AdvReac Chest Pain Verified 07/11/19 21:04 Review of Systems ROS Statement: Those systems with pertinent positive or pertinent negative responses have been documented in the HPI. ROS Other: All systems not noted in ROS Statement are negative. Past Medical History Past Medical History: Asthma, CVA/TIA, Deep Vein Thrombosis (DVT), Os teoarthritis (OA), Pulmonary Embolus (PE) Additional Past Medical History / Comment(s): sticky platelet syndrome, bronchitis, History of Any Multi-Drug Resistant Organisms: ESBL Date of last positivie culture/infection: 10/15/18 ESBL-Proteus; 09/07/18 ESBL E.coli MDRO Source:: Urine ESBL Past Surgical History: Back Surgery, Cholecystectomy, Coronary Bypass/CABG Additional Past Surgical History / Comment(s): BKA, left lower leg, aortic bypass right leg, right leg fasciotomy. Past Anesthesia/Blood Transfusion Reactions: No Reported Reaction Additional Past Anesthesia/Blood Transfusion Reaction / Comment(s): pt stated has had a blood transfusion in past-no reaction. Past Psychological History: Anxiety, Depression Smoking Status: Never smoker Past Alcohol Use History: None Reported Past Drug Use History: None Reported - Past Family History Mother History Unknown: Yes Additional Family Medical History / Comment(s): MS, legally blind, cataracts Father Family Medical History: No Reported History Additional Family Medical History / Comment(s): Was younger when he , car accident General Exam Limitations: physical limitation General appearance: alert, in no apparent distress Head exam: Present: atraumatic, normocephalic, normal inspection Eye exam: Present: normal appearance, PERRL, EOMI. Absent: scleral icterus, conjunctival injection, periorbital swelling Neck exam: Present: normal inspection, full ROM. Absent: tenderness Respiratory exam: Present: normal lung sounds bilaterally. Absent: respiratory distress, wheezes, rales, rhonchi, stridor Cardiovascular Exam: Present: regular rate, normal rhythm, normal heart sounds. Absent: systolic murmur, diastolic murmur, rubs, gallop, clicks GI/Abdominal exam: Present: soft, normal bowel sounds. Absent: distended, tenderness, guarding, rebound, rigid Extremities exam: Present: other (Tenderness to left hip, no obvious deformity no erythema) Back exam: Present: tenderness, paraspinal tenderness, vertebral tenderness (Lumbar). Absent: normal inspection (There is an incision the left back, cris in place with no erythema no drainage nontender), full ROM Neurological exam: Present: alert, oriented X3, CN II-XII intact, reflexes normal. Absent: motor sensory deficit Skin exam: Present: warm, dry, intact, normal color. Absent: rash Course Vital Signs 12/24/19 13:34 Temperature 98.0 F Pulse Rate 104 H Respiratory 18 Rate Blood Pressure 138/91 O2 Sat by Pulse 97 Oximetry Medical Decision Making - Medical Decision Making CT of brain shows no acute abnormality. X-rays of the lumbar spine, pelvis and left hip are negative for acute fracture. Patient's pain is improved and will be discharged in stable condition. Disposition Clinical Impression: Fall, Low back pain, Left hip pain Disposition: HOME SELF-CARE Condition: Stable Instructions (If sedation given, give patient instructions): Hip Contusion (ED) Additional Instructions: Please return to the Emergency Department if symptoms worsen or any other concerns. Is patient prescribed a controlled substance at d/c from ED?: No Referrals: Carissa Castro MD [Primary Care Provider] - 1-2 days Time of Disposition: 14:38
--- NOTE | 2019-12-24 14:20 | XR ---
EXAMINATION TYPE: XR lumbar spine 2 or 3V DATE OF EXAM: 12/24/2019 COMPARISON: NONE HISTORY: Back pain TECHNIQUE: 3 views FINDINGS: Lumbar vertebra have fairly normal alignment. Posterior elements are intact. There is some osteopenia. Sacroiliac joints are intact. There is no compression fracture. IMPRESSION: No fracture seen. No significant disc space narrowing.
--- NOTE | 2019-12-24 14:22 | XR ---
EXAMINATION TYPE: XR Hip LT and AP Pelvis DATE OF EXAM: 12/24/2019 COMPARISON: NONE HISTORY: Pain after a fall TECHNIQUE: 3 views FINDINGS: The pelvic ring is intact. There is left hip nailing noted. Acetabula appear intact. Sacroi liac joints are intact. There is implanted device over the left hip iliac bone. There are skin staple s. There are numerous vascular surgical clips over the femoral arteries. IMPRESSION: No acute bony abnormality. Previous left hip nailing.
--- NOTE | 2019-12-24 14:30 | CT ---
EXAMINATION TYPE: CT brain wo con DATE OF EXAM: 12/24/2019 COMPARISON: April 14, 2019 HISTORY: [facility] CT DLP: 1039.4 mGycm Automated exposure control for dose reduction was used. Multiple axial sections were obtained of the brain without contrast. FINDINGS: There are multiple cortical areas of hypodensity relate to multiple old infarcts involving left poste rior parietal lobe, right anterior temporal lobe, right posterior temporal lobe. There is no midline shift. There is no mass effect. There is no sign of intracranial hemorrhage. The calvarium is intact. There is lacunar infarcts in the anterior right internal capsule. IMPRESSION: Multiple old infarcts. No acute infarct seen. No significant change compared to old exam.
[2019-12-24] MEDS ORDERED: HYDROmorphone 0.5 MG/0.5 ML SYRINGE IVP STA (14:42)
[2019-12-24 14:48] VITALS: BP 124/94; PULSE 92
== END 2019-12-24 14:53 | disposition home or self-care (01) ==
LOC: EC 13:27
DX: M54.5 Low back pain (principal); M25.552 Pain in left hip; F32.9 Major depressive disorder, single episode, unspecified; F41.9 Anxiety disorder, unspecified; J45.909 Unspecified asthma, uncomplicated; M19.90 Unspecified osteoarthritis, unspecified site; Z79.02 Long term (current) use of antithrombotics/antiplatelets; Z79.51 Long term (current) use of inhaled steroids; Z79.899 Other long term (current) drug therapy; Z88.6 Allergy status to analgesic agent; Z88.8 Allergy status to other drugs, medicaments and biological substances; Z86.711 Personal history of pulmonary embolism; Z86.718 Personal history of other venous thrombosis and embolism; Z86.73 Personal history of transient ischemic attack (TIA), and cerebral infarction without residual deficits; Z95.1 Presence of aortocoronary bypass graft; Z89.511 Acquired absence of right leg below knee; Z89.512 Acquired absence of left leg below knee; W06.XXXA Fall from bed, initial encounter
CPT/HCPCS: 72100; 73502; 70450; 99284; 96374; 96376; J1170 ×2

== ENCOUNTER → 2020-01-30 | Outpatient (CLI) | payer MEDICARE, OTHER ==
[2020-01-30 11:46] LABS: Appearance,Urine Clear (Clear); Bilirubin,Urine Negative (Negative); Blood,Urine Negative (Negative); Color,Urine Light Yellow; Glucose,Urine (UA) Negative (Negative); Ketones,Urine Negative (Negative); Leukocyte Esterase,Urine Negative (Negative); Nitrite,Urine Negative (Negative); Protein,Urine Negative (Negative); Specific Gravity,Urine 1.006 (1.001-1.035); Urobilinogen,Urine <2.0 mg/dL (<2.0)
[2020-01-30 11:54] LABS: Basophils % (A) 1 %; Eosinophils # (A) 0.2 k/uL (0-0.7); Eosinophils % (A) 6 %; HCT 41.8 % (34.0-46.0); HGB 12.6 gm/dL (11.4-16.0); Hypochromasia Slight; Lymphocytes # (A) 1.1 k/uL (1.0-4.8); Lymphocytes % (A) 29 %; MCH 30.2 pg (25.0-35.0); MCHC 30.1 g/dL (31.0-37.0); MCV 100.4 fL (80.0-100.0); Mean Platelet Volume 7.9; Monocytes # (A) 0.3 k/uL (0-1.0); Monocytes % (A) 8 %; Neutrophils % (A) 55 %; Platelet Count 215 k/uL (150-450); RBC 4.16 m/uL (3.80-5.40); RDW 13.4 % (11.5-15.5); WBC 3.7 k/uL (3.8-10.6)
[2020-01-30 17:00] LABS: African American GFR (CKD) 75.5 (60.0-200.0); Anion Gap 2.9 mmol/L (4.00-12.00); Calcium 8.6 mg/dL (8.7-10.3); Carbon Dioxide 27.1 mmol/L (21.6-31.8); Non-African American GFR(CKD) 65.2 (60.0-200.0); Potassium 4.9 mmol/L (3.5-5.5)
== END | disposition home or self-care (01) ==
LOC: LABWHC1 11:00
PROVIDERS: ATTEND Physician Assistant
DX: N39.0 Urinary tract infection, site not specified (principal); N17.9 Acute kidney failure, unspecified; D64.9 Anemia, unspecified
CPT/HCPCS: 36415; 80048; 81003; 85025; 87086

== ENCOUNTER 2020-02-23 13:26 | Emergency (ER) | payer MEDICARE, OTHER ==
--- NOTE | 2020-02-23 15:03 | ED ---
Lower Extremity Injury HPI - General Chief Complaint: Extremity Injury, Lower Stated Complaint: L Leg Pain Time Seen by Provider: 02/23/20 13:43 Source: patient, family Mode of arrival: wheelchair Limitations: no limitations - History of Present Illness Initial Comments: Patient is a 49-year-old female, history of bilateral lower leg amputee, sticky platelet syndrome, presenting to the emergency Department with complaints of left upper leg pain that started early this morning. Patient denies any falls or trauma to the area. She states she woke up early this morning and noticed a pins and needles feeling and pain in her left upper leg. She is concerned she may have a blood clot. Patient does admit to taking Plavix. She also takes pain medications for chronic pain. Patient states she took morphine this morning which did not help with her pain. She denies having fever, chills, shortness of breath, abdominal pain. She has no other complaints. Upon arrival to the ER, her vital signs are stable. - Related Data Home Medications Medication Instructions Recorded Confirmed Clopidogrel Bisulfate [Plavix] 75 mg PO DAILY 12/06/18 08/11/19 Cyclobenzaprine [Flexeril] 10 mg PO TID PRN 12/27/18 08/11/19 Albuterol Sulfate [Proair Hfa] 1 puff INHALATION RT-Q6H PRN 04/09/19 08/11/19 ALPRAZolam [Xanax] 2 mg PO DAILY PRN 05/01/19 08/11/19 Enoxaparin [Lovenox] 40 mg SQ BID 05/01/19 08/11/19 HYDROmorphone HCL [Dilaudid] 8 mg PO TID PRN 05/01/19 08/11/19 Sucralfate [Carafate] 1 gram PO DAILY PRN 05/01/19 08/11/19 Furosemide [Lasix] 40 mg PO DAILY PRN 05/11/19 08/11/19 Fluticasone/Salmeterol [Advair 1 puff INHALATION RT-BID 05/17/19 08/11/19 250-50 Diskus] Famotidine [Pepcid] 20 mg PO DAILY PRN 06/03/19 08/11/19 Ipratropium-Albuterol Nebulize 3 ml INHALATION RT-QID PRN 07/11/19 08/11/19 [Duoneb 0.5 mg-3 mg/3 ml Soln] Morphine Sulfate [Morphine Sulfate 30 mg PO BID PRN 08/11/19 08/11/19 ER] Previous Rx's Medication Instructions Recorded Nitroglycerin Sl Tabs [Nitrostat] 0.4 mg SUBLINGUAL Q5M PRN tab 12/28/18 Carvedilol [Coreg] 6.25 mg PO BID-W/MEALS #60 tab 04/12/19 Lisinopril [Zestril] 5 mg PO DAILY #30 tab 04/12/19 Acetaminophen Tab [Tylenol] 500 mg PO Q6HR PRN tab 05/14/19 Allergies Allergy/AdvReac Type Severity Reaction Status Date / Time ibuprofen Allergy Unknown Verified 07/11/19 21:04 trazodone AdvReac Chest Pain Verified 07/11/19 21:04 Review of Systems ROS Statement: Those systems with pertinent positive or pertinent negative responses have been documented in the HPI. ROS Other: All systems not noted in ROS Statement are negative. Past Medical History Past Medical History: Asthma, CVA/TIA, Deep Vein Thrombosis (DVT), Osteoarthritis (OA), Pulmonary Embolus (PE) Additional Past Medical History / Comment(s): sticky platelet syndrome, bronchitis, History of Any Multi-Drug Resistant Organisms: ESBL Date of last positivie culture/infection: 10/15/18 ESBL-Proteus; 09/07/18 ESBL E.coli MDRO Source:: Urine ESBL Past Surgical History: Back Surgery, Cholecystectomy, Coronary Bypass/CABG Additional Past Surgical History / Comment(s): BKA, left lower leg, aortic bypass right leg, right leg fasciotomy. Past Anesthesia/Blood Transfusion Reactions: No Reported Reaction Additional Past Anesthesia/Blood Transfusion Reaction / Comment(s): pt stated has had a blood transfusion in past-no reaction. Past Psychological History: Anxiety, Depression Smoking Status: Never smoker Past Alcohol Use History: None Reported Past Drug Use History: None Reported - Past Family History Mother History Unknown: Yes Additional Family Medical History / Comment(s): MS, legally blind, cataracts Father Family Medical History: No Reported History Additional Family Medical History / Comment(s): Was younger when he , car accident General Exam - General Exam Comments Initial Comments: GENERAL: Well-appearing, well-nourished and in no acute distress. HEAD: Atraumatic, normocephalic. EYES: Pupils equal round and reactive to light, extraocular movements intact, sclera anicteric, conjunctiva are normal. ENT: TMs normal, nares patent, oropharynx clear without exudates. Moist mucous membranes. NECK: Normal range of motion, supple without lymphadenopathy or JVD. LUNGS: Breath sounds clear to auscultation bilaterally and equal. No wheezes rales or rhonchi. HEART: Regular rate and rhythm without murmurs, rubs or gallops. ABDOMEN: Soft, nontender, normoactive bowel sounds. No guarding, no rebound. No masses appreciated. : Deferred EXTREMITIES: Bilateral lower leg amputee. There is no erythema or swelling of the left upper leg. Pain with palpation. Sensation is normal. NEUROLOGICAL: Normal speech. PSYCH: Normal mood, normal affect. SKIN: Warm, Dry, normal turgor, no rashes or lesions noted. Limitations: no limitations Course Vital Signs 02/23/20 02/23/20 02/23/20 13:28 15:34 16:25 Temperature 97.9 F 98.0 F Pulse Rate 82 74 74 Respiratory 18 16 18 Rate Blood Pressure 112/71 104/57 115/80 O2 Sat by Pulse 100 97 100 Oximetry Medical Decision Making - Medical Decision Making Patient is a 49-year-old female here for left upper leg pain since this morning. Patient has history of bilateral leg amputee. Exam reveals no acute abnormalities. Vital signs are stable. Ultrasound of the left lower extremity reveals a chronic DVT from the femoral vein to the popliteal vein. Patient currently on a blood thinner. Patient was given pain medicine and has been resting complaining the bed. Patient is stable for discharge and she'll follow- up with her PCP. She is in agreement with this plan of care. Return parameters were discussed with the patient she verbalized understanding. Case discussed with Dr. Caballero. Disposition Clinical Impression: Chronic deep vein thrombosis of left lower extremity, Chronic pain of left lower extremity Disposition: HOME SELF-CARE Condition: Stable Instructions (If sedation given, give patient instructions): Deep Vein Thrombosis (ED) Additional Instructions: Please return to the Emergency Department if symptoms worsen or any other concerns. Follow-up with physician as discussed. Elevation of the leg. Is patient prescribed a controlled substance at d/c from ED?: No Referrals: Carissa Castro MD [Primary Care Provider] - 1-2 days
[2020-02-23 15:36] VITALS: PULSE 74; TEMP 98
[2020-02-23] MEDS: HYDROmorphone 1 MG/ML 1 ML SYRINGE IM STA (15:40)
--- NOTE | 2020-02-23 15:42 | US ---
EXAMINATION TYPE: US venous doppler duplex LE LT DATE OF EXAM: 02/23/2020 3:19 PM COMPARISON: NONE CLINICAL HISTORY: 49-year-old female swelling and pain. SIDE PERFORMED: Left TECHNIQUE: The lower extremity deep venous system is examined utilizing real time linear array sonog neha with graded compression, doppler sonography and color-flow sonography. FINDINGS: VESSELS IMAGED: External Iliac Vein (EIV) Common Femoral Vein Deep Femoral Vein Greater Saphenous Vein * Femoral Vein Popliteal Vein Small Saphenous Vein * Proximal Calf Veins (* superficial vessels) Left Leg: Positive for chronic DVT from femoral vein through popliteal v. The DVT is extensive along the femoral vein with some spectral flow demonstrated but little to no color flow. Some color flow i s noted in the popliteal vein. IMPRESSION: Redemonstrated extensive DVT within the left lower extremity from the femoral vein into the popliteal vein.
[2020-02-23 16:29] VITALS: BP 115/80; RESP 18
== END 2020-02-23 16:29 | disposition home or self-care (01) ==
LOC: EC 13:26
DX: I82.512 Chronic embolism and thrombosis of left femoral vein (principal); I82.532 Chronic embolism and thrombosis of left popliteal vein; G89.29 Other chronic pain; M79.652 Pain in left thigh; D69.1 Qualitative platelet defects; M19.90 Unspecified osteoarthritis, unspecified site; J45.909 Unspecified asthma, uncomplicated; Z79.02 Long term (current) use of antithrombotics/antiplatelets; Z79.01 Long term (current) use of anticoagulants; Z79.899 Other long term (current) drug therapy; Z79.51 Long term (current) use of inhaled steroids; Z88.8 Allergy status to other drugs, medicaments and biological substances; Z88.6 Allergy status to analgesic agent; Z89.512 Acquired absence of left leg below knee; Z89.511 Acquired absence of right leg below knee; Z86.73 Personal history of transient ischemic attack (TIA), and cerebral infarction without residual deficits; Z86.711 Personal history of pulmonary embolism; Z95.1 Presence of aortocoronary bypass graft
CPT/HCPCS: 96372; 99283

== ENCOUNTER → 2020-03-05 | Outpatient (CLI) | payer MEDICARE, OTHER ==
[2020-03-05 11:05] LABS: Basophils % (A) 1 %; Eosinophils # (A) 0.2 k/uL (0-0.7); Eosinophils % (A) 5 %; HCT 34.9 % (34.0-46.0); HGB 11.3 gm/dL (11.4-16.0); Lymphocytes # (A) 1.1 k/uL (1.0-4.8); Lymphocytes % (A) 27 %; MCH 31.4 pg (25.0-35.0); MCHC 32.3 g/dL (31.0-37.0); MCV 97.3 fL (80.0-100.0); Mean Platelet Volume 7.7; Monocytes # (A) 0.3 k/uL (0-1.0); Monocytes % (A) 8 %; Neutrophils # (A) 2.4 k/uL (1.3-7.7); Neutrophils % (A) 58 %; Platelet Count 262 k/uL (150-450); RBC 3.59 m/uL (3.80-5.40); RDW 14.4 % (11.5-15.5); WBC 4.2 k/uL (3.8-10.6)
[2020-03-05 16:04] LABS: Hepatitis B Surface AB- Quant 492.9 mIU/mL; Hepatitis B Surface Antibody Reactive (Non-Reactive); Hepatitis B Surface Antigen Non-Reactive (Non-Reactive); Hepatitis C IgG Antibody Non-Reactive (Non-Reactive)
[2020-03-05 16:14] LABS: African American GFR (CKD) 67.3 (60.0-200.0); Albumin 2.9 g/dL (3.80-4.90); Albumin/Globulin Ratio 1.04 (1.60-3.17); Anion Gap 4.8 mmol/L (4.00-12.00); BUN/Creat Ratio 20.91 Ratio (12.00-20.00); Carbon Dioxide 24.2 mmol/L (21.6-31.8); Globulin 2.8 g/dL (1.6-3.3); Non-African American GFR(CKD) 58.1 (60.0-200.0); Potassium 4.9 mmol/L (3.5-5.5); Total Bilirubin 0.1 mg/dL (0.2-1.2); Total Protein 5.7 g/dL (6.2-8.2)
[2020-03-05 17:08] LABS: HIV 2 AB Non-Reactive (Non-Reactive); HIV AB P24 Non-Reactive (Non-Reactive); HIV P24 AG Non-Reactive (Non-Reactive)
== END | disposition home or self-care (01) ==
LOC: LABWHC1 09:31
PROVIDERS: ATTEND Family Medicine
DX: I82.512 Chronic embolism and thrombosis of left femoral vein (principal); R76.8 Other specified abnormal immunological findings in serum; R74.8 Abnormal levels of other serum enzymes
CPT/HCPCS: 36415; 80053; 84443; 85025; 86704; 86706; 86803; 87340; 87390; 87522

== ENCOUNTER → 2020-03-13 | Outpatient (CLI) | payer MEDICARE, OTHER ==
[2020-03-13 18:10] LABS: Hepatitis B Surface AB- Quant 493.6 mIU/mL; Hepatitis B Surface Antibody Reactive (Non-Reactive); Hepatitis B Surface Antigen Non-Reactive (Non-Reactive); Hepatitis C IgG Antibody Non-Reactive (Non-Reactive)
== END | disposition home or self-care (01) ==
LOC: LABWHC1 08:36
PROVIDERS: ATTEND Family Medicine
DX: I82.512 Chronic embolism and thrombosis of left femoral vein (principal); R76.9 Abnormal immunological finding in serum, unspecified; R74.8 Abnormal levels of other serum enzymes
CPT/HCPCS: 36415; 86704; 86706; 86803; 87340; 87522

== ENCOUNTER 2020-06-17 21:57 | Inpatient (IN) | payer MEDICARE, OTHER ==
[2020-06-17] MEDS ORDERED: ASPIRIN 81 MG PO STA (22:26)
--- NOTE | 2020-06-17 22:53 | ED ---
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 She is currently on Plavix and Lovenox. Patient presents to the ER today for evaluation of 3 days of left-sided chest pain radiating to the back. Pain is not associated with any palpitations or shortness of breath. She denies any fevers or chills. She denies any exacerbating or relieving factors to the pain. She's not taken aspirin today but is on multiple pain medications which have not helped her pain. - Related Data Home Medications Medication Instructions Recorded Confirmed Clopidogrel Bisulfate [Plavix] 75 mg PO DAILY 12/06/18 06/18/20 Cyclobenzaprine [Flexeril] 10 mg PO TID PRN 12/27/18 06/18/20 Albuterol Sulfate [Proair Hfa] 1 puff INHALATION RT-Q6H PRN 04/09/19 06/18/20 ALPRAZolam [Xanax] 2 mg PO DAILY PRN 05/01/19 06/18/20 Enoxaparin [Lovenox] 40 mg SQ BID 05/01/19 06/18/20 HYDROmorphone HCL [Dilaudid] 8 mg PO TID PRN 05/01/19 06/18/20 Sucralfate [Carafate] 1 gram PO DAILY PRN 05/01/19 06/18/20 Furosemide [Lasix] 40 mg PO DAILY PRN 05/11/19 06/18/20 Fluticasone/Salmeterol [Advair 1 puff INHALATION RT-BID 05/17/19 06/18/20 250-50 Diskus] Famotidine [Pepcid] 20 mg PO DAILY PRN 06/03/19 06/18/20 Ipratropium-Albuterol Nebulize 3 ml INHALATION RT-QID PRN 07/11/19 06/18/20 [Duoneb 0.5 mg-3 mg/3 ml Soln] Morphine Sulfate [Morphine Sulfate 30 mg PO BID PRN 08/11/19 06/18/20 ER] Previous Rx's Medication Instructions Recorded Nitroglycerin Sl Tabs [Nitrostat] 0.4 mg SUBLINGUAL Q5M PRN tab 12/28/18 carvediloL [Coreg] 6.25 mg PO BID-W/MEALS #60 tab 04/12/19 lisinopriL [Zestril] 5 mg PO DAILY #30 tab 04/12/19 Acetaminophen Tab [Tylenol] 500 mg PO Q6HR PRN tab 05/14/19 Allergies Allergy/AdvReac Type Severity Reaction Status Date / Time ibuprofen Allergy Unknown Verified 06/17/20 22:02 trazodone AdvReac Chest Pain Verified 06/17/20 22:02 Review of Systems ROS Statement: Those systems with pertinent positive or pertinent negative responses have been documented in the HPI. ROS Other: All systems not noted in ROS Statement are negative. EKG Findings - EKG Comments: EKG Findings:: EKG was obtained due to complaint of chest pain, EKG was obtained at 2234, rate is 68, rhythm is sinus, normal axis, normal intervals, AK 162, QRS 76, QTC 474. No acute ST elevations or depressions and T-wave inversions are noted bilaterally. Past Medical History Past Medical History: Asthma, CVA/TIA, Deep Vein Thrombosis (DVT), Osteoarthritis (OA), Pulmonary Embolus (PE) Additional Past Medical History / Comment(s): sticky platelet syndrome, bronchitis, History of Any Multi-Drug Resistant Organisms: ESBL Date of last positivie culture/infection: 10/15/18 ESBL-Proteus; 09/07/18 ESBL E.coli MDRO Source:: Urine ESBL Past Surgical History: Back Surgery, Cholecystectomy, Coronary Bypass/CABG Additional Past Surgical History / Comment(s): BKA, left lower leg, aortic bypass right leg, right leg fasciotomy. Past Anesthesia/Blood Transfusion Reactions: No Reported Reaction Additional Past Anesthesia/Blood Transfusion Reaction / Comment(s): pt stated has had a blood transfusion in past-no reaction. Past Psychological History: Anxiety, Depression Smoking Status: Former smoker Past Alcohol Use History: None Reported Past Drug Use History: None Reported - Past Family History Mother History Unknown: Yes Additional Family Medical History / Comment(s): MS, legally blind, cataracts Father Family Medical History: No Reported History Additional Family Medical History / Comment(s): Was younger when he , car accident General Exam Limitations: no limitations Course Vital Signs 06/17/20 06/17/20 06/18/20 21:58 23:00 00:00 Temperature 98.9 F Pulse Rate 79 66 65 Pulse Rate [ Pulse Oximetery ] Respiratory 16 18 18 Rate Blood Pressure 134/75 138/79 121/58 Blood Pressure [Left Arm] O2 Sat by Pulse 97 Oximetry 06/18/20 06/18/20 06/18/20 01:00 01:09 01:29 Temperature 98.0 F Pulse Rate 67 Pulse Rate [ 73 Pulse Oximetery ] Respiratory 18 18 Rate Blood Pressure 137/65 Blood Pressure 145/81 [Left Arm] O2 Sat by Pulse 100 100 Oximetry 06/18/20 01:31 Temperature 97.8 F Pulse Rate 68 Pulse Rate [ Pulse Oximetery ] Respiratory 18 Rate Blood Pressure 136/64 Blood Pressure [Left Arm] O2 Sat by Pulse 97 Oximetry Chest Pain MDM - 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 Condition: Serious Is patient prescribed a controlled substance at d/c from ED?: No
[2020-06-17 23:23] LABS: Basophils % (A) 0 %; Eosinophils # (A) 0.4 k/uL (0-0.7); Eosinophils % (A) 5 %; HCT 33.5 % (34.0-46.0); HGB 10.8 gm/dL (11.4-16.0); Hypochromasia Slight; Lymphocytes # (A) 1.1 k/uL (1.0-4.8); Lymphocytes % (A) 16 %; MCH 33.9 pg (25.0-35.0); MCHC 32.4 g/dL (31.0-37.0); MCV 104.8 fL (80.0-100.0); Macrocytosis Moderate; Mean Platelet Volume 7.9; Monocytes # (A) 0.5 k/uL (0-1.0); Monocytes % (A) 7 %; Neutrophils # (A) 5.1 k/uL (1.3-7.7); Neutrophils % (A) 71 %; Platelet Count 263 k/uL (150-450); RBC 3.19 m/uL (3.80-5.40); RDW 15.3 % (11.5-15.5); WBC 7.1 k/uL (3.8-10.6)
--- NOTE | 2020-06-17 23:25 | XR ---
EXAMINATION TYPE: XR chest 2V DATE OF EXAM: 06/17/2020 COMPARISON: 06/07/2019 HISTORY: Short of breath TECHNIQUE: 2 views FINDINGS: Heart is enlarged. There is no gross heart failure. There are no hilar masses. There is no evidence of pleural effusion. There are chest leads. Bony thorax appears intact. There is some mild l inear density in the right middle lobe. IMPRESSION: Minimal subsegmental atelectasis. There is clearing of the pneumonia left lower lobe comp ared to old exam. Stable mild cardiomegaly.
[2020-06-17 23:28] LABS: INR 0.9 (<1.2); Partial Thromboplastin Time 25.6 sec (22.0-30.0); Prothrombin Time 9.5 sec (9.0-12.0)
[2020-06-17 23:33] LABS: Albumin 3.4 g/dL (3.5-5.0); Calcium 8.6 mg/dL (8.4-10.2); Potassium 4.2 mmol/L (3.5-5.1); Total Bilirubin 0.2 mg/dL (0.2-1.3); Total Protein 6.6 g/dL (6.3-8.2)
[2020-06-18] MEDS ORDERED: NITROGLYCERIN SL TABS 0.4 MG TAB SUBLINGUAL PRN (01:09)
[2020-06-18] MEDS ORDERED: ACETAMINOPHEN TAB 500 MG TAB PO PRN ×2 (01:11→01:48)
[2020-06-18] MEDS ORDERED: IPRATROPIUM-ALBUTEROL 3 ML NEB INHALATION PRN (01:11)
[2020-06-18] MEDS ORDERED: HYDROmorphone 4 MG TABLET PO PRN (01:11)
[2020-06-18] MEDS ORDERED: FAMOTIDINE 20 MG TAB PO PRN (01:11)
[2020-06-18] MEDS ORDERED: SUCRALFATE 1 GM TAB PO PRN (01:11)
[2020-06-18] MEDS ORDERED: ALPRAZolam 1 MG TAB PO PRN (01:11)
[2020-06-18] MEDS ORDERED: ALBUTEROL NEBULIZED 2.5 MG/3 ML INHALATION PRN (01:11)
[2020-06-18] MEDS ORDERED: FUROSEMIDE 40 MG TAB PO PRN (01:11)
[2020-06-18] MEDS: MORPHINE SULFATE ER 30 MG TABLET PO PRN ×2 (03:03→15:54)
[2020-06-18] MEDS: carvediloL 6.25 MG TAB PO SCH ×2 (06:37→20:26)
[2020-06-18] MEDS ORDERED: REGADENOSON 0.4 MG/5 ML SYRINGE IV ONE (08:50)
[2020-06-18] MEDS ORDERED: CAFFEINE CITRATE 60 MG/3 ML VIAL IV PRN (08:50)
[2020-06-18] MEDS ORDERED: AMINOPHYLLINE 500 MG/20 ML VIAL IV PRN (08:50)
[2020-06-18] MEDS: CLOPIDOGREL 75 MG TAB PO SCH (09:28)
[2020-06-18] MEDS: lisinopriL 5 MG TAB PO SCH (09:28)
[2020-06-18] MEDS: ENOXAPARIN 40 MG/0.4 ML SYRINGE SQ SCH ×2 (09:28→21:10)
[2020-06-18 12:05] VITALS: BMI 18.1
--- NOTE | 2020-06-18 12:38 | NM ---
EXAMINATION TYPE: NM stress lexiscan cardiolite DATE OF EXAM: 06/18/2020 COMPARISON: NONE HISTORY: Chest pain TECHNIQUE: After the intravenous administration of 10.2 mCi Tc 99m Sestamibi - Cardiolite resting SP ECT images acquired 45 minutes post injection. The patient received 0.4mg Lexiscan, 24.8 mCi Tc 99m Sestamibi - Stress images obtained [address] injection FINDINGS: Review of stress and rest SPECT images demonstrates large area of fixed defect involving the anterior wall and lateral wall myocardium. Stress images demonstrate reduced lateral and inferior wall uptake relative to rest.. Gated analysis shows abnormal wall motion with an estimated left ventricular eje ction fraction of 23 %. Nurse called with the findings. IMPRESSION: 1. Findings compatible with stress-induced reversible perfusion defect involving the inferolateral an d lateral wall of the myocardium. 2. Abnormal ejection fraction of 23% with fixed defects involving the anterior wall.
--- NOTE | 2020-06-18 13:30 | EST ---
EXERCISE STRESS AGE: 50 SEX: F HT: 63" WT: 102 lbs. PROTOCOL: Lexiscan Cardiolite STAGE: DURATION OF EXERCISE: HEART RATE REST: 55 BLOOD PRESSURE REST: 110/75 MAXIMUM HEART RATE ACHIEVED: 81 MAXIMUM BLOOD PRESSURE: 119/64 85% MPHR: 100% MPHR: METS: INDICATIONS: Chest pain. CLINICAL INFORMATION: Baseline EKG shows sinus rhythm, poor R-wave progression, normal axis, normal intervals. Patient was given intravenous Lexiscan as per protocol. Did not have chest pain or diagnostic ST-segment depression. CONCLUSION: 1. Negative stress test by EKG criteria. 2. Cardiolite portion of the stress test will be reported separately. MMODL / IJN: [id number] /
[2020-06-18] MEDS ORDERED: SODIUM CHLORIDE 0.9% 1,000 ML in EMPTY BAG 1 BAG IV ONE (14:00)
--- NOTE | 2020-06-18 14:00 | P.PN ---
Progress Note - Text Findings a stress test discussed with the patient and her mother. We recommend proceeding with cardiac catheterization for definitive diagnosis. I have discussed the risks, benefits and alternative therapies for the above-mentioned procedure and for both sedation/analgesia as well as necessary blood product administration, if indicated, as they pertain to this patient. The patient has indicated understanding and acceptance of the risks and procedures discussed. Questions have been answered appropriately and she is agreeable to move forward with the above-stated procedure.
[2020-06-18] MEDS ORDERED: ONDANSETRON 4 MG TAB PO PRN (15:44)
--- NOTE | 2020-06-18 15:57 | CONS ---
CONSULTATION CHIEF COMPLAINT: Chest pain. This is a 50-year-old lady with history of nonischemic cardiomyopathy with severe LV dysfunction, chronic systolic heart failure, platelet disorder, history of bilateral above-knee amputation, who comes to hospital complaining of chest pain. Her chest discomfort is sharp, precordial, radiated to her back and mild intensity at rest. EKG showed sinus rhythm with anterolateral ST-T wave changes. She has had 3 sets of cardiac enzymes that were all negative. Hemoglobin is low at 10.8. At the time of my evaluation this morning, she is pain free hemodynamically stable and in no apparent distress. PAST MEDICAL HISTORY: Significant for chronic pain, bilateral below-knee amputation, platelet disorder, COPD, cardiomyopathy with congestive heart failure. MEDICATIONS: At home included Zestril 2.5 q. daily, morphine, Lyrica, DuoNeb, Lasix, , Pepcid, Plavix, ProAir, Coreg, and Fioricet. ALLERGIES: To IBUPROFEN and TRAZODONE. FAMILY HISTORY: Negative for premature coronary artery disease. SOCIAL HISTORY: Negative for current smoking, EtOH abuse, or drug abuse. REVIEW OF SYSTEMS: HEENT: Unremarkable. CARDIAC: As described above. RESPIRATORY: As described above. GI: Negative. GENITOURINARY: Negative. ALLERGY/IMMUNOLOGY: Negative. SKIN: Negative. MUSCULOSKELETAL: Significant for bilateral below-knee amputation. PSYCHOSOCIAL: Negative. ENDOCRINE: Negative. DERM: Negative. CONSTITUTIONAL: Negative. PHYSICAL EXAM: Patient is comfortable at rest, afebrile, heart rate is 73 beats per minute. Blood pressure is 140/80, respiratory rate is 18. There is no jugular venous distention. Chest exam reveals good air entry bilaterally. Heart exam reveals first and second heart sounds. No gallop. No murmur. Abdomen is soft. Exam of extremities reveals bilateral below-knee amputation. LABS: Show that the cardiac enzymes are negative. EKG shows anterolateral ST-T wave changes. ASSESSMENT AND PLAN: 1. Precordial chest pain. 2. Nonischemic cardiomyopathy with severe LV dysfunction. 3. History of chronic systolic heart failure. PLAN: The patient will undergo a Lexiscan. If this is abnormal, I will ask Dr. Gary to perform a cardiac catheterization on her. MMODL / IJN: [id number] /
--- NOTE | 2020-06-18 16:46 | P.HPIM ---
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 No associated shortness of breath or palpitations. No diaphoresis. No nausea vomiting. Denies any fever or chills. No cough or sputum production. EKG showed sinus rhythm with anterolateral ST-T wave changes. Troponin x3- Laboratory data showed WBC 7.1, hemoglobin 10.8 and MCV 104.8 Sodium 138, potassium 4.2, bicarb is 23, BUN 26 and creatinine 1.4 proBNP 2950 Albumin 3.4 Chest x-ray showed minimal subsegmental atelectasis. There is clearing of the pneumonia left lower lobe compatible exam. Stable mild cardiomegaly. Review of Systems Constitutional: Patient denies any fever or chills . No generalized weakness or weight loss. Abdomen: Patient denied nausea vomiting and diarrhea and abdominal pain. Cardiovascular: patient does have left-sided chest pain dating to the back. No shortness of breath no leg swelling. No palpitations.. Respiratory: patient denied any cough is from production. No shortness of breath Neurologic: Patient denied any numbness or tingling headache. Musculoskeletal: Patient denies any complaints of joint swelling or deformity. Skin: Negative Psychiatric: Negative Endocrine: No heat or cold intolerance. No recent weight gain. Genitourinary: No dysuria or hematuria. All other 14 point ROS negative except the above Past Medical History Past Medical History: Asthma, CVA/TIA, Deep Vein Thrombosis (DVT), Oste oarthritis (OA), Pulmonary Embolus (PE) Additional Past Medical History / Comment(s): sticky platelet syndrome, bronchitis, History of Any Multi-Drug Resistant Organisms: ESBL Date of last positivie culture/infection: 10/15/18 ESBL-Proteus; 09/07/18 ESBL E.coli MDRO Source:: Urine ESBL Past Surgical History: Back Surgery, Cholecystectomy, Coronary Bypass/CABG Additional Past Surgical History / Comment(s): BKA, left lower leg, aortic bypass right leg, right leg fasciotomy. Past Anesthesia/Blood Transfusion Reactions: No Reported Reaction Additional Past Anesthesia/Blood Transfusion Reaction / Comment(s): pt stated has had a blood transfusion in past-no reaction. Past Psychological History: Anxiety, Depression Smoking Status: Former smoker Past Alcohol Use History: None Reported Past Drug Use History: None Reported - Past Family History Mother History Unknown: Yes Additional Family Medical History / Comment(s): MS, legally blind, cataracts Father Family Medical History: No Reported History Additional Family Medical History / Comment(s): Was younger when he , car accident Medications and Allergies Home Medications Medication Instructions Recorded Confirmed Type Clopidogrel Bisulfate [Plavix] 75 mg PO DAILY 12/06/18 06/18/20 History Nitroglycerin Sl Tabs [Nitrostat] 0.4 mg SUBLINGUAL Q5M PRN tab 12/28/18 06/18/20 Rx Albuterol Sulfate [Proair Hfa] 1 puff INHALATION RT-Q4H PRN 04/09/19 06/18/20 History carvediloL [Coreg] 6.25 mg PO BID-W/MEALS #60 tab 04/12/19 06/18/20 Rx Enoxaparin [Lovenox] 40 mg SQ BID 05/01/19 06/18/20 History Furosemide [Lasix] 40 mg PO DAILY PRN 05/11/19 06/18/20 History Acetaminophen Tab [Tylenol] 500 mg PO Q6HR PRN tab 05/14/19 06/18/20 Rx Fluticasone/Salmeterol [Advair 1 puff INHALATION RT-BID 05/17/19 06/18/20 History 250-50 Diskus] Famotidine [Pepcid] 20 mg PO DAILY PRN 06/03/19 06/18/20 History Ipratropium-Albuterol Nebulize 3 ml INHALATION RT-Q6H PRN 07/11/19 06/18/20 History [Duoneb 0.5 mg-3 mg/3 ml Soln] Morphine Sulfate [Morphine Sulfate 30 mg PO HS PRN 08/11/19 06/18/20 History ER] Butalb/Acetaminophen/Caffeine 1 tab PO Q8H PRN 06/18/20 06/18/20 History [Fioricet 50-325-40] Dicyclomine HCl 20 mg PO BID PRN 06/18/20 06/18/20 History Pregabalin [Lyrica] 100 mg PO BID 06/18/20 06/18/20 History lisinopriL [Zestril] 2.5 mg PO DAILY 06/18/20 06/18/20 History Allergies Allergy/AdvReac Type Severity Reaction Status Date / Time ibuprofen Allergy Unknown Verified 06/18/20 09:24 trazodone Allergy Chest Pain Verified 06/18/20 09:24 Physical Exam Vitals: Vital Signs Temp Pulse Pulse Resp BP BP Pulse Ox 06/18/20 02:24 73 18 06/18/20 02:22 98.0 F 73 18 145/81 100 06/18/20 01:31 97.8 F 68 18 136/64 97 06/18/20 01:29 98.0 F 73 18 145/81 100 06/18/20 01:09 100 06/18/20 01:00 67 18 137/65 06/18/20 00:00 65 18 121/58 06/17/20 23:00 66 18 138/79 06/17/20 21:58 98.9 F 79 16 134/75 97 Intake and Output 06/17/20 06/18/20 06/18/20 22:59 06:59 14:59 Other: # Voids 0 Weight 46.266 kg 46.266 kg PHYSICAL EXAMINATION: Patient is lying in the bed comfortably, no acute distress, awake alert and oriented.. HEENT: Normocephalic. Neck is supple. Pupils reactive. Nostrils clear. Oral cavity is moist. Ears reveal no drainage. Neck reveals no JVD, carotid bruits, or thyromegaly. CHEST EXAMINATION: Trachea is central. Symmetrical expansion.minimal expiratory wheeze. No rhonchi or crackles. Lung duncan clear to auscultation and percussion. CARDIAC: Normal S1, S2 with no gallops. No murmurs ABDOMEN: Soft. Bowel sounds normal. No organomegaly. No abdominal bruits. Extremities: reveal no edema.left BKA. No clubbing or cyanosis Neurologically awake, alert, oriented x3 with well-coordinated movements. No focal deficits noted Skin: No rash or skin lesions. Psychiatric: Coperative. Nonsuicidal Musculoskeletal: No joint swelling or deformity. Normal range of motion. Results CBC & Chem 7: 06/17/20 22:34 06/17/20 22:34 Labs: Abnormal Lab Results - Last 24 Hours (Table) 06/17/20 06/17/20 Range/Units 22:34 22:34 RBC 3.19 L (3.80-5.40) m/uL Hgb 10.8 L (11.4-16.0) gm/dL Hct 33.5 L (34.0-46.0) % MCV 104.8 H (80.0-100.0) fL Chloride 108 H (98-107) mmol/L BUN 26 H (7-17) mg/dL Creatinine 1.40 H (0.52-1.04) mg/dL AST 43 H (14-36) U/L Albumin 3.4 L (3.5-5.0) g/dL Thrombosis Risk Factor Assmnt - DVT/VTE Prophylaxis DVT/VTE Prophylaxis: Pharmacologic Prophylaxis ordered - Choose All That Apply Each Factor Represents 1 point: Age 41-60 years, Medical pt on bed rest Each Risk Factor Represents 3 Points: History of DVT/PE Other congenital or acquired thrombophilia - If yes, enter type in comment: Yes (sticky platelet syndrome) Thrombosis Risk Factor Assessment Total Risk Factor Score: 5 Thrombosis Risk Factor Assessment Level: High Risk Assessment and Plan Assessment: Chest pain ACS ruled out Abnormal Stress test Nonischemic cardiomyopathy with ejection fraction 20% Chronic CHF with systolic dysfunction Acute kidney injury most likely prerenal with creatinine of 1.4 Asthma/COPD not in exacerbation Sticky platelet syndrome with history of multiple embolic events on long-term anticoagulation with Lovenox History of PE/DVT History of BKA left lower extremity and Right leg aortic bypass surgery Anxiety/depression History of CVA/TIA Previous history of smoking Plan: Patient will be continued on telemetry monitoring. Troponin x3-. Patient was seen by cardiology and had Lexiscan stress test which showed compatible with stress-induced reversible perfusion defect involving the inferior lateral and lateral wall of the myocardium. EF 23% with fixed defects involving the anterior wall. Cardiology is planning for cardiac catheterization tomorrow. Continue with aspirin, statins and Coreg and Plavix. Continue with home medications and follow-up closely. Further recommendations based on clinical course. Prognosis guarded. Time with Patient: Greater than 30
--- NOTE | 2020-06-18 18:00 | ECHOF ---
Referral Reason:chest pain MEASUREMENTS -------- HEIGHT: 160.0 cm WEIGHT: 46.3 kg BP: 145/81 RVIDd: 2.8 cm (< 3.3) IVSd: 1.2 cm (0.6 - 1.1) LVIDd: 5.1 cm (3.9 - 5.3) LVPWd: 1.2 cm (0.6 - 1.1) IVSs: 1.7 cm LVIDs: 3.8 cm LVPWs: 1.6 cm LA Diam: 3.4 cm (2.7 - 3.8) LAESV Index (A-L): 27.33 ml/m Ao Diam: 3.0 cm (2.0 - 3.7) AV Cusp: 2.3 cm (1.5 - 2.6) MV EXCURSION: 22.169 mm (> 18.000) MV EF SLOPE: 83 mm/s (70 - 150) EPSS: 1.7 cm MV E Main: 0.68 m/s MV DecT: 179 ms MV A Main: 0.68 m/s MV E/A Ratio: 0.99 FINDINGS -------- Resting bradycardia (HR<60bpm). This was a technically good study. The left ventricular size is normal. There is borderline concentric left ventricular hypertrophy. Overall left ventricular systolic function is moderately impaired with, an EF between 35 - 40 %. A pical anterior LV wall motion is hypokinetic. Apical lateral LV wall motion is hypokinetic. Api kurt inferior LV wall motion is hypokinetic. Apical septum LV wall motion is hypokinetic. The right ventricle is normal in size. Normal LA size by volume 22+/-6 ml/m2. The right atrium is normal in size. Interatrial and interventricular septum intact. The aortic valve is trileaflet and appears structurally normal. There is trace to mild mitral regurgitation. The tricuspid valve appears structurally normal. There is no pulmonic regurgitation present. The aortic root size is normal. Normal inferior vena cava with normal inspiratory collapse consistent with estimated right atrial pre ssure of 5 mmHg. There is no pericardial effusion. CONCLUSIONS -------- 1. The left ventricular size is normal. 2. There is borderline concentric left ventricular hypertrophy. 3. Overall left ventricular systolic function is moderately impaired with, an EF between 35 - 40 %. 4. Apical anterior LV wall motion is hypokinetic. 5. Apical lateral LV wall motion is hypokinetic. 6. Apical inferior LV wall motion is hypokinetic. 7. Apical septum LV wall motion is hypokinetic. 8. There is trace to mild mitral regurgitation. 9. There is no pericardial effusion. TRANSFER PUMPER: Yesenia Yoder RDCS
[2020-06-19] MEDS: CYCLOBENZAPRINE 10 MG TAB PO PRN (01:15)
[2020-06-19] MEDS: MORPHINE SULFATE ER 30 MG TABLET PO PRN (06:28)
[2020-06-19 06:47] LABS: Basophils % (A) 1 %; Eosinophils # (A) 0.4 k/uL (0-0.7); Eosinophils % (A) 7 %; HCT 33.9 % (34.0-46.0); HGB 10.3 gm/dL (11.4-16.0); Hypochromasia Marked; Lymphocytes # (A) 0.9 k/uL (1.0-4.8); Lymphocytes % (A) 18 %; MCH 32.7 pg (25.0-35.0); MCHC 30.4 g/dL (31.0-37.0); Macrocytosis Marked; Monocytes # (A) 0.3 k/uL (0-1.0); Monocytes % (A) 7 %; Neutrophils # (A) 3.2 k/uL (1.3-7.7); Neutrophils % (A) 66 %; Platelet Count 265 k/uL (150-450); RBC 3.16 m/uL (3.80-5.40); WBC 4.9 k/uL (3.8-10.6)
[2020-06-19 06:52] LABS: MCV 107.4 fL (80.0-100.0)
[2020-06-19 06:57] LABS: Calcium 8.5 mg/dL (8.4-10.2); Potassium 4.8 mmol/L (3.5-5.1)
[2020-06-19 07:51] LABS: Glucose,Whole Blood 81 mg/dL (75-99)
[2020-06-19] MEDS: ASPIRIN 325 MG TAB PO SCH (07:58)
[2020-06-19] MEDS: ENOXAPARIN 40 MG/0.4 ML SYRINGE SQ SCH ×2 (07:59→22:34)
[2020-06-19] MEDS: lisinopriL 5 MG TAB PO SCH (07:59)
[2020-06-19] MEDS: CLOPIDOGREL 75 MG TAB PO SCH (07:59)
[2020-06-19] MEDS: carvediloL 6.25 MG TAB PO SCH ×2 (07:59→17:03)
--- NOTE | 2020-06-19 20:18 | PN ---
PROGRESS NOTE Nel is a 50-year-old lady with cardiomyopathy with severe LV dysfunction, chronic systolic heart failure that comes to the hospital with chest pain. She was initially evaluated on the . Had a stress test yesterday that showed stress-induced ischemia involving anterolateral wall. She was supposed to have a catheterization done today but she could not because of difficulties in arranging it. On an echocardiogram, she has an ejection fraction of 35% to 40% with evidence of apical myocardial infarction. PHYSICAL EXAMINATION: At the time of my evaluation she appears comfortable at rest. Chest pain-free. On exam vital signs are stable. Chest exam shows good air entry. Heart exam reveals first and second heart sounds. No gallop. Exam of extremities reveals bilateral above-knee amputation. LABORATORY DATA: Labs show a hemoglobin of 10. Potassium is 4.8, creatinine is 1. Tropes are negative. LDL cholesterol is 89. ASSESSMENT: Precordial chest pain with abnormal stress test. PLAN: Patient will undergo cardiac catheterization tomorrow. MMODL / IJN: [id number] /
[2020-06-20] MEDS: CYCLOBENZAPRINE 10 MG TAB PO PRN ×2 (02:12→17:07)
[2020-06-20] MEDS: CLOPIDOGREL 75 MG TAB PO SCH (06:05)
[2020-06-20] MEDS: lisinopriL 5 MG TAB PO SCH (06:05)
[2020-06-20] MEDS: ASPIRIN 325 MG TAB PO SCH (06:05)
[2020-06-20] MEDS: carvediloL 6.25 MG TAB PO SCH ×2 (06:06→17:07)
[2020-06-20] MEDS ORDERED: LIDOCAINE 1% INJ 10MG/ML (20 ML MDV) ONE (07:26)
[2020-06-20] MEDS ORDERED: VERAPAMIL 2.5 MG/ML 2 ML AMP ONE (07:34)
[2020-06-20] MEDS ORDERED: MIDAZOLAM 2 MG/2 ML VIAL IVP ONE (07:44)
[2020-06-20] MEDS ORDERED: IV FLUID CONTINUATION 1,000 ML IV ONE (07:46)
[2020-06-20] MEDS ORDERED: LIDOCAINE 1% INJ 10MG/ML (20 ML MDV) SQ ONE (07:49)
[2020-06-20] MEDS ORDERED: VERAPAMIL SYRINGE (5 MG/10 ML) INTRAARTER ONE (07:50)
[2020-06-20] MEDS ORDERED: HYDROmorphone 1 MG/ML 1 ML SYRINGE ONE (07:56)
[2020-06-20] MEDS ORDERED: HYDROmorphone 1 MG/ML 1 ML SYRINGE IVP ONE (07:57)
[2020-06-20] MEDS ORDERED: IOPAMIDOL-370 100ML BTL INJ ONE (08:00)
[2020-06-20] MEDS ORDERED: RX INFO: IV CONTRAST WAS GIVEN 1 EACH MISC MISCELLANE PRN (08:13)
[2020-06-20] MEDS ORDERED: SODIUM CHLORIDE 0.9% 1,000 ML IV SCH (08:15)
[2020-06-20] MEDS: ENOXAPARIN 40 MG/0.4 ML SYRINGE SQ SCH (08:24)
[2020-06-20 08:40] VITALS: RESP 16
--- NOTE | 2020-06-20 10:05 | CC ---
CARDIAC CATHETERIZATION REPORT DATE OF SERVICE: 06/18/2020 PERFORMING PHYSICIAN: Jalen Gary MD. PROCEDURE PERFORMED: 1. Selective right and left coronary angiogram. 2. Left heart catheterization. INDICATION: This is a 50-year-old female patient with a past medical history significant for sticky platelet syndrome and hypercoagulopathy and also known to have a bilateral [id number] amputation, who was diagnosed with cardiomyopathy. The heart catheterization to rule out severe underlying coronary artery disease. She was admitted to the hospital with chest discomfort and the stress test was performed and showed anterolateral ischemia. APPROACH: Left radial artery. COMPLICATION: None. LEVEL OF SEDATION: Moderate with sedation length of 15 minutes. PROCEDURE DESCRIPTION: After obtaining an informed consent, the patient was brought to the cardiac slab conditioner supervisor. The left radial artery was cannulated using micropuncture technique, the micropuncture wire passed easily, then I placed a 6-Greenlandic sheath at the left radial artery. I gave the patient 2 mg of verapamil IA. No anticoagulation given because the last dose of Lovenox was less than 12 hours ago. SELECTIVE RIGHT AND LEFT CORONARY ANGIOGRAM: Performed using JR4 3.5 and JL3.5 catheters. Left heart catheterization was performed using the JL 3.5 which crossed the aortic valve, then I did pullback across the valve. The procedure was completed without any complication. SELECTIVE CORONARY ANGIOGRAM: 1. Right coronary artery is a moderate caliber vessel and it is a codominant vessel. The RCA has mild disease only. 2. The left main is angiographically normal, it bifurcates into LCX and LAD. 3. The LCX is a large caliber vessel and it is a codominant vessel. The proximal left circumflex has mild disease only and gives rise into the first OM branch which appeared to be angiographically normal. The mid left circumflex is angiographically normal and gives rise into a second OM branch which seems to be normal. The circumflex distally is normal and bifurcates into PDA and PLV branches, both appeared to be angiographically normal. 4. The LAD, the proximal LAD appears to be normal. The mid and distal LAD are normal as well. The LAD gives rise into a medium-sized diagonal branch which seems to have mild disease only. 5. HEMODYNAMICS: The LVEDP was 8-10 mmHg without significant gradient across the aortic valve. CONCLUSION: 1. Mild nonobstructive coronary artery disease involving the right and left coronary systems. 2. Codominant right and left coronary systems. 3. Normal left ventricular end-diastolic pressure. POSTPROCEDURE MANAGEMENT: 1. Maximize medical treatment. 2. Follow up with the patient. SOO / JANES: [id number] /
[2020-06-20] MEDS: MORPHINE SULFATE ER 30 MG TABLET PO PRN (11:15)
[2020-06-20 15:30] VITALS: BP 137/66; PULSE 58; TEMP 98.1
== END 2020-06-20 17:10 | disposition home or self-care (01) | DRG 287 ==
LOC: EC 21:57 → 3NCARDOBS 06-18 01:09 → OBSVTOIN 06-20 09:49
PROVIDERS: ADMIT Hospitalist; ATTEND Hospitalist
PROC: B2111ZZ Fluoroscopy of Multiple Coronary Arteries using Low Osmolar Contrast (ICD-10-PCS; principal; 2020-06-20 07:30)
PROC: 4A023N7 Measurement of Cardiac Sampling and Pressure, Left Heart, Percutaneous Approach (ICD-10-PCS; principal; 2020-06-20 07:30)
DX: I25.10 Atherosclerotic heart disease of native coronary artery without angina pectoris (principal); I50.22 Chronic systolic (congestive) heart failure; N17.9 Acute kidney failure, unspecified; D69.1 Qualitative platelet defects; I42.8 Other cardiomyopathies; J44.9 Chronic obstructive pulmonary disease, unspecified; Z89.512 Acquired absence of left leg below knee; I73.9 Peripheral vascular disease, unspecified; I25.2 Old myocardial infarction; F41.8 Other specified anxiety disorders; G89.29 Other chronic pain; M54.9 Dorsalgia, unspecified; M19.90 Unspecified osteoarthritis, unspecified site; Z79.02 Long term (current) use of antithrombotics/antiplatelets; Z79.51 Long term (current) use of inhaled steroids; Z79.899 Other long term (current) drug therapy; Z79.01 Long term (current) use of anticoagulants; Z95.1 Presence of aortocoronary bypass graft; Z87.891 Personal history of nicotine dependence; Z86.59 Personal history of other mental and behavioral disorders; Z86.711 Personal history of pulmonary embolism; Z87.01 Personal history of pneumonia (recurrent); Z86.718 Personal history of other venous thrombosis and embolism; Z86.19 Personal history of other infectious and parasitic diseases; Z86.73 Personal history of transient ischemic attack (TIA), and cerebral infarction without residual deficits; Z90.49 Acquired absence of other specified parts of digestive tract; Z87.19 Personal history of other diseases of the digestive system; Z87.39 Personal history of other diseases of the musculoskeletal system and connective tissue; Z95.828 Presence of other vascular implants and grafts; Z88.6 Allergy status to analgesic agent; Z88.8 Allergy status to other drugs, medicaments and biological substances; Z82.1 Family history of blindness and visual loss; Z82.49 Family history of ischemic heart disease and other diseases of the circulatory system
CPT/HCPCS: 36415; 71046; 78452; 80048; 80053; 80061; 83735; 83880; 84484; 85025; 85610; 85730; 93005; 93017; 93306; 93458; 99285

== ENCOUNTER 2020-11-06 16:14 | Inpatient (IN) | payer MEDICARE, OTHER ==
[2020-11-06] MEDS ORDERED: SODIUM CHLORIDE 0.9% 1,000 ML IV ONE (16:27)
--- NOTE | 2020-11-06 16:56 | ED ---
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 EMS states they were called to the patient's house for weakness. They found her slumped over a bench. She was originally talking to EMS and then became unresponsive. She required bagging upon driving into the hospital. Family reported the patient was having episodes of bloody vomit and felt weak and tired over the past couple days. Pt is on Lovenox for history of DVT and PE. No history of ulcerative disease. Upon arrival the patient does become more arousable. States that she was at Dr. Maria's office where her pain pump was filled. She began feeling like she was going to throw up and began vomiting blood. No history of similar in the past. No history of ulcerative disease. She denies headache or visual changes. Admits to diffuse myalgias. No other alleviating, precipitating or modifying factors - Related Data Home Medications Medication Instructions Recorded Confirmed Clopidogrel Bisulfate [Plavix] 75 mg PO DAILY 12/06/18 11/06/20 Albuterol Sulfate [Proair Hfa] 1 puff INHALATION RT-Q4H PRN 04/09/19 11/06/20 Enoxaparin [Lovenox] 40 mg SQ DAILY 05/01/19 11/06/20 Furosemide [Lasix] 40 mg PO DAILY PRN 05/11/19 11/06/20 Fluticasone/Salmeterol [Advair 1 puff INHALATION RT-BID 05/17/19 11/06/20 250-50 Diskus] Famotidine [Pepcid] 20 mg PO DAILY PRN 06/03/19 11/06/20 Ipratropium-Albuterol Nebulize 3 ml INHALATION RT-Q6H PRN 07/11/19 11/06/20 [Duoneb 0.5 mg-3 mg/3 ml Soln] Butalb/Acetaminophen/Caffeine 1 tab PO Q8H PRN 06/18/20 11/06/20 [Fioricet 50-325-40] Dicyclomine HCl 20 mg PO BID PRN 06/18/20 11/06/20 Morphine Sulfate Ir [MSIR] 15 mg PO DAILY PRN 11/06/20 11/06/20 Pain Pump W/Morphine 1 dose INTRATHECA DIRECTED 11/06/20 11/06/20 Pregabalin [Lyrica] 75 mg PO TID 11/06/20 11/06/20 lisinopriL [Zestril] 2.5 mg PO DAILY 11/06/20 11/06/20 Previous Rx's Medication Instructions Recorded Nitroglycerin Sl Tabs [Nitrostat] 0.4 mg SUBLINGUAL Q5M PRN tab 12/28/18 carvediloL [Coreg] 6.25 mg PO BID-W/MEALS #60 tab 04/12/19 Acetaminophen Tab [Tylenol] 500 mg PO Q6HR PRN tab 05/14/19 Allergies Allergy/AdvReac Type Severity Reaction Status Date / Time ibuprofen Allergy Unknown Verified 11/06/20 17:33 trazodone Allergy Chest Pain Verified 11/06/20 17:33 Review of Systems ROS Statement: Those systems with pertinent positive or pertinent negative responses have been documented in the HPI. ROS Other: All systems not noted in ROS Statement are negative. Past Medical History Past Medical History: Asthma, CVA/TIA, Deep Vein Thrombosis (DVT), Osteoarth ritis (OA), Pulmonary Embolus (PE) Additional Past Medical History / Comment(s): sticky platelet syndrome, bronchitis, History of Any Multi-Drug Resistant Organisms: ESBL Date of last positivie culture/infection: 10/15/18 ESBL-Proteus; 09/07/18 ESBL E.coli MDRO Source:: Urine ESBL Past Surgical History: Back Surgery, Cholecystectomy, Coronary Bypass/CABG Additional Past Surgical History / Comment(s): BKA, left lower leg, aortic bypass right leg, right leg fasciotomy. Past Anesthesia/Blood Transfusion Reactions: No Reported Reaction Additional Past Anesthesia/Blood Transfusion Reaction / Comment(s): pt stated has had a blood transfusion in past-no reaction. Past Psychological History: Anxiety, Depression Smoking Status: Former smoker Past Alcohol Use History: None Reported Past Drug Use History: None Reported - Past Family History Mother History Unknown: Yes Additional Family Medical History / Comment(s): MS, legally blind, cataracts Father Family Medical History: No Reported History Additional Family Medical History / Comment(s): Was younger when he , car accident General Exam Limitations: altered mental status (upon arrival, improves throughout exam) General appearance: lethargic (patient becomes arousal, appropriate throughout exam) Head exam: Present: atraumatic, normocephalic, normal inspection ENT exam: Present: normal exam, mucous membranes moist, other (no visible blood) Respiratory exam: Present: normal lung sounds bilaterally. Absent: respiratory distress, wheezes, rales, rhonchi, stridor Cardiovascular Exam: Present: regular rate, normal rhythm, normal heart sounds. Absent: systolic murmur, diastolic murmur, rubs, gallop, clicks GI/Abdominal exam: Present: soft, normal bowel sounds. Absent: distended, tenderness, guarding, rebound, rigid Rectal exam: Present: bloody stool Extremities exam: Present: other (right aka, left bka) Neurological exam: Present: alert, oriented X3, CN II-XII intact Psychiatric exam: Present: normal affect, normal mood Skin exam: Present: warm, dry Course Vital Signs 11/06/20 11/06/20 11/06/20 16:16 16:30 16:45 Temperature 97.5 F L Pulse Rate 85 85 Respiratory 18 12 15 Rate Blood Pressure 76/63 98/68 O2 Sat by Pulse 94 L 99 Oximetry 11/06/20 11/06/20 11/06/20 17:00 17:45 18:00 Temperature Pulse Rate 71 77 70 Respiratory 18 18 11 L Rate Blood Pressure 115/79 119/76 115/78 O2 Sat by Pulse 99 97 99 Oximetry 11/06/20 11/06/20 18:15 18:30 Temperature Pulse Rate 77 85 Respiratory 15 16 Rate Blood Pressure 116/79 113/89 O2 Sat by Pulse 99 100 Oximetry - Reevaluation(s) Reevaluation #1: 11/06/20 18:14 Spoke with Hannah who is media sales consultant from [facility]. She accepted admission. Notified that I will call GI regarding patients presentation. Reevaluation #2: Spoke with dr. alcantara in regards to patient care - patient presents with active GI bleeding. Blood pressures stable in ED. Will hold lovenox at this time - patient to be reassessed before next dose of lovenox is due. Will not reverse due to history of significant clotting disorder requiring amputations. No transfusion ordered at this time as blood pressures and hemoglobin stable. Patient has no further emesis or melena while in ED. 11/06/20 18:16 EKG Findings - EKG Comments: EKG Findings:: EKG demonstrates normal sinus rhythm with ventricular rate of 81. SD interval 156. QS 86. QTC of 480. No acute ST segment elevations or depressions concerning for ischemic changes Medical Decision Making - Medical Decision Making Upon arrival she is placed in a trauma bay 1. She is being bagged by EMS. She does become arousable and slowly begins to talk. By the exam of the primary survey, the patient is alert and answering questions appropriately. Reports that she felt nauseated and started having bright red emesis at home. Blood pressure is noted to be 76/63. Peripheral IV is established and the patient was started on a liter bolus of normal saline. Laboratory studies were conducted. Hemoglobin stable at 10.1. Lactic acid 2.6. Patient is rolled and is noted that she has a significant amount of bright and dark bloody stool. Occult is sent and is positive. Patient does continue to answer questions appropriately. Reports that her pain pump was just filled previous to her coming to the emergency department. She admits to myalgias. States she has been taking her Lovenox as directed for her platelet syndrome. CT of her brain is held at this time due to return of proper mentation. Chest x-ray is performed which demonstrates no acute process. I did discuss results with the patient. She does have improvement in her blood pressure which does remain stable around 115 systolic throughout several hours of observation in the emergency department. I recommended hospital admission. I discussed the patient's care with Dr. Alcantara. She will remain nothing by mouth at this time for planned EGD. Care also discussed with Hannah from [facility] who accepted admission. Patient had no further emesis/hematemesis/melena in the ED. Lovenox will be held but not reversed due to the blood pressures and hemoglobin stable with significant history of clotting disorder. Patient was in agreement with this plan and was transported to the floor in stable condition - Lab Data Result diagrams: 11/08/20 02:05 11/07/20 20:29 Lab Results 11/06/20 11/06/20 11/06/20 Range/Units 16:27 16:27 16:27 WBC (3.8-10.6) k/uL RBC (3.80-5.40) m/uL Hgb (11.4-16.0) gm/dL Hct (34.0-46.0) % MCV (80.0-100.0) fL MCH (25.0-35.0) pg MCHC (31.0-37.0) g/dL RDW (11.5-15.5) % Plt Count (150-450) k/uL MPV Neutrophils % % Lymphocytes % % Monocytes % % Eosinophils % % Basophils % % Neutrophils # (1.3-7.7) k/uL Lymphocytes # (1.0-4.8) k/uL Monocytes # (0-1.0) k/uL Eosinophils # (0-0.7) k/uL Basophils # (0-0.2) k/uL Manual Slide Review Hypochromasia Macrocytosis PT 10.5 (9.0-12.0) sec INR 1.0 (<1.2) APTT 23.4 (22.0-30.0) sec Sodium (137-145) mmol/L Potassium (3.5-5.1) mmol/L Chloride (98-107) mmol/L Carbon Dioxide (22-30) mmol/L Anion Gap mmol/L BUN (7-17) mg/dL Creatinine (0.52-1.04) mg/dL Est GFR (CKD-EPI)AfAm (>60 ml/min/1.73 sqM) Est GFR (CKD-EPI)NonAf (>60 ml/min/1.73 sqM) Glucose (74-99) mg/dL POC Glucose (mg/dL) (75-99) mg/dL POC Glu Cable Respooler ID Lactic Ac Sepsis Rflx Plasma Lactic Acid Faisal 2.6 H* (0.7-2.0) mmol/L Calcium (8.4-10.2) mg/dL Total Bilirubin (0.2-1.3) mg/dL AST (14-36) U/L ALT (4-34) U/L Alkaline Phosphatase (38-126) U/L Troponin I <0.012 (0.000-0.034) ng/mL Total Protein (6.3-8.2) g/dL Albumin (3.5-5.0) g/dL Urine Color Urine Appearance (Clear) Urine pH (5.0-8.0) Ur Specific Jewett (1.001-1.035) Urine Protein (Negative) Urine Glucose (UA) (Negative) Urine Ketones (Negative) Urine Blood (Negative) Urine Nitrite (Negative) Urine Bilirubin (Negative) Urine Urobilinogen (<2.0) mg/dL Ur Leukocyte Esterase (Negative) Urine RBC (0-5) /hpf Urine WBC (0-5) /hpf Ur Squamous Epith Cells (0-4) /hpf Urine Bacteria (None) /hpf Urine Mucus (None) /hpf Stool Occult Blood (Negative) Blood Type Blood Type Confirm Blood Type Recheck Bld Type Recheck Status Antibody Screen Crossmatch Spec Expiration Date 11/06/20 11/06/20 11/06/20 Range/Units 16:27 16:43 16:43 WBC 6.5 (3.8-10.6) k/uL RBC 3.29 L (3.80-5.40) m/uL Hgb 10.1 L (11.4-16.0) gm/dL Hct 33.7 L (34.0-46.0) % MCV 102.5 H (80.0-100.0) fL MCH 30.7 (25.0-35.0) pg MCHC 29.9 L (31.0-37.0) g/dL RDW 14.2 (11.5-15.5) % Plt Count 603 H (150-450) k/uL MPV 8.7 Neutrophils % 60 % Lymphocytes % 31 % Monocytes % 4 % Eosinophils % 3 % Basophils % 0 % Neutrophils # 3.9 (1.3-7.7) k/uL Lymphocytes # 2.0 (1.0-4.8) k/uL Monocytes # 0.3 (0-1.0) k/uL Eosinophils # 0.2 (0-0.7) k/uL Basophils # 0.0 (0-0.2) k/uL Manual Slide Review Performed Hypochromasia Marked Macrocytosis Slight PT (9.0-12.0) sec INR (<1.2) APTT (22.0-30.0) sec Sodium (137-145) mmol/L Potassium (3.5-5.1) mmol/L Chloride (98-107) mmol/L Carbon Dioxide (22-30) mmol/L Anion Gap mmol/L BUN (7-17) mg/dL Creatinine (0.52-1.04) mg/dL Est GFR (CKD-EPI)AfAm (>60 ml/min/1.73 sqM) Est GFR (CKD-EPI)NonAf (>60 ml/min/1.73 sqM) Glucose (74-99) mg/dL POC Glucose (mg/dL) (75-99) mg/dL POC Glu Cable Respooler ID Lactic Ac Sepsis Rflx Plasma Lactic Acid Faisal (0.7-2.0) mmol/L Calcium (8.4-10.2) mg/dL Total Bilirubin (0.2-1.3) mg/dL AST (14-36) U/L ALT (4-34) U/L Alkaline Phosphatase (38-126) U/L Troponin I (0.000-0.034) ng/mL Total Protein (6.3-8.2) g/dL Albumin (3.5-5.0) g/dL Urine Color Urine Appearance (Clear) Urine pH (5.0-8.0) Ur Specific Jewett (1.001-1.035) Urine Protein (Negative) Urine Glucose (UA) (Negative) Urine Ketones (Negative) Urine Blood (Negative) Urine Nitrite (Negative) Urine Bilirubin (Negative) Urine Urobilinogen (<2.0) mg/dL Ur Leukocyte Esterase (Negative) Urine RBC (0-5) /hpf Urine WBC (0-5) /hpf Ur Squamous Epith Cells (0-4) /hpf Urine Bacteria (None) /hpf Urine Mucus (None) /hpf Stool Occult Blood Positive H (Negative) Blood Type B Positive Blood Type Confirm Blood Type Recheck No Previous Record Bld Type Recheck Status CABO Indicated Antibody Screen NEGATIVE Crossmatch See Detail Spec Expiration Date 11/08/2020 0300 11/06/20 11/06/20 11/06/20 Range/Units 16:43 17:18 17:50 WBC (3.8-10.6) k/uL RBC (3.80-5.40) m/uL Hgb (11.4-16.0) gm/dL Hct (34.0-46.0) % MCV (80.0-100.0) fL MCH (25.0-35.0) pg MCHC (31.0-37.0) g/dL RDW (11.5-15.5) % Plt Count (150-450) k/uL MPV Neutrophils % % Lymphocytes % % Monocytes % % Eosinophils % % Basophils % % Neutrophils # (1.3-7.7) k/uL Lymphocytes # (1.0-4.8) k/uL Monocytes # (0-1.0) k/uL Eosinophils # (0-0.7) k/uL Basophils # (0-0.2) k/uL Manual Slide Review Hypochromasia Macrocytosis PT (9.0-12.0) sec INR (<1.2) APTT (22.0-30.0) sec Sodium 134 L (137-145) mmol/L Potassium 4.8 (3.5-5.1) mmol/L Chloride 104 (98-107) mmol/L Carbon Dioxide 19 L (22-30) mmol/L Anion Gap 11 mmol/L BUN 15 (7-17) mg/dL Creatinine 0.90 (0.52-1.04) mg/dL Est GFR (CKD-EPI)AfAm 85 (>60 ml/min/1.73 sqM) Est GFR (CKD-EPI)NonAf 74 (>60 ml/min/1.73 sqM) Glucose 79 (74-99) mg/dL POC Glucose (mg/dL) (75-99) mg/dL POC Glu Cable Respooler ID Lactic Ac Sepsis Rflx Y Plasma Lactic Acid Faisal (0.7-2.0) mmol/L Calcium 8.6 (8.4-10.2) mg/dL Total Bilirubin 0.6 (0.2-1.3) mg/dL AST 22 (14-36) U/L ALT 16 (4-34) U/L Alkaline Phosphatase 123 (38-126) U/L Troponin I (0.000-0.034) ng/mL Total Protein 6.3 (6.3-8.2) g/dL Albumin 2.6 L (3.5-5.0) g/dL Urine Color Urine Appearance (Clear) Urine pH (5.0-8.0) Ur Specific Jewett (1.001-1.035) Urine Protein (Negative) Urine Glucose (UA) (Negative) Urine Ketones (Negative) Urine Blood (Negative) Urine Nitrite (Negative) Urine Bilirubin (Negative) Urine Urobilinogen (<2.0) mg/dL Ur Leukocyte Esterase (Negative) Urine RBC (0-5) /hpf Urine WBC (0-5) /hpf Ur Squamous Epith Cells (0-4) /hpf Urine Bacteria (None) /hpf Urine Mucus (None) /hpf Stool Occult Blood (Negative) Blood Type Blood Type Confirm B Positive Blood Type Recheck Bld Type Recheck Status Antibody Screen Crossmatch Spec Expiration Date 11/06/20 11/07/20 11/07/20 Range/Units 19:50 00:46 07:18 WBC 6.2 (3.8-10.6) k/uL RBC 2.52 L (3.80-5.40) m/uL Hgb 8.0 L D (11.4-16.0) gm/dL Hct 25.7 L (34.0-46.0) % MCV 101.8 H (80.0-100.0) fL MCH 31.6 (25.0-35.0) pg MCHC 31.0 (31.0-37.0) g/dL RDW 13.8 (11.5-15.5) % Plt Count 462 H (150-450) k/uL MPV 7.7 Neutrophils % % Lymphocytes % % Monocytes % % Eosinophils % % Basophils % % Neutrophils # (1.3-7.7) k/uL Lymphocytes # (1.0-4.8) k/uL Monocytes # (0-1.0) k/uL Eosinophils # (0-0.7) k/uL Basophils # (0-0.2) k/uL Manual Slide Review Hypochromasia Marked Macrocytosis Slight PT (9.0-12.0) sec INR (<1.2) APTT (22.0-30.0) sec Sodium (137-145) mmol/L Potassium (3.5-5.1) mmol/L Chloride (98-107) mmol/L Carbon Dioxide (22-30) mmol/L Anion Gap mmol/L BUN (7-17) mg/dL Creatinine (0.52-1.04) mg/dL Est GFR (CKD-EPI)AfAm (>60 ml/min/1.73 sqM) Est GFR (CKD-EPI)NonAf (>60 ml/min/1.73 sqM) Glucose (74-99) mg/dL POC Glucose (mg/dL) (75-99) mg/dL POC Glu Cable Respooler ID Lactic Ac Sepsis Rflx Plasma Lactic Acid Faisal 0.7 (0.7-2.0) mmol/L Calcium (8.4-10.2) mg/dL Total Bilirubin (0.2-1.3) mg/dL AST (14-36) U/L ALT (4-34) U/L Alkaline Phosphatase (38-126) U/L Troponin I (0.000-0.034) ng/mL Total Protein (6.3-8.2) g/dL Albumin (3.5-5.0) g/dL Urine Color Yellow Urine Appearance Cloudy H (Clear) Urine pH 5.5 (5.0-8.0) Ur Specific Jewett 1.022 (1.001-1.035) Urine Protein 1+ H (Negative) Urine Glucose (UA) Negative (Negative) Urine Ketones 1+ H (Negative) Urine Blood Small H (Negative) Urine Nitrite Negative (Negative) Urine Bilirubin Negative (Negative) Urine Urobilinogen 2.0 (<2.0) mg/dL Ur Leukocyte Esterase Negative (Negative) Urine RBC 1 (0-5) /hpf Urine WBC 1 (0-5) /hpf Ur Squamous Epith Cells 3 (0-4) /hpf Urine Bacteria Rare H (None) /hpf Urine Mucus Rare H (None) /hpf Stool Occult Blood (Negative) Blood Type Blood Type Confirm Blood Type Recheck Bld Type Recheck Status Antibody Screen Crossmatch Spec Expiration Date 11/07/20 11/07/20 11/07/20 Range/Units 07:21 07:21 08:10 WBC 5.9 (3.8-10.6) k/uL RBC 2.58 L (3.80-5.40) m/uL Hgb 8.1 L (11.4-16.0) gm/dL Hct 26.4 L (34.0-46.0) % MCV 102.4 H (80.0-100.0) fL MCH 31.2 (25.0-35.0) pg MCHC 30.5 L (31.0-37.0) g/dL RDW 13.9 (11.5-15.5) % Plt Count 487 H (150-450) k/uL MPV 6.8 Neutrophils % 78 % Lymphocytes % 14 % Monocytes % 5 % Eosinophils % 1 % Basophils % 0 % Neutrophils # 4.6 (1.3-7.7) k/uL Lymphocytes # 0.8 L (1.0-4.8) k/uL Monocytes # 0.3 (0-1.0) k/uL Eosinophils # 0.1 (0-0.7) k/uL Basophils # 0.0 (0-0.2) k/uL Manual Slide Review Hypochromasia Marked Macrocytosis Slight PT (9.0-12.0) sec INR (<1.2) APTT (22.0-30.0) sec Sodium 136 L (137-145) mmol/L Potassium 4.2 (3.5-5.1) mmol/L Chloride 110 H (98-107) mmol/L Carbon Dioxide 21 L (22-30) mmol/L Anion Gap 5 mmol/L BUN 15 (7-17) mg/dL Creatinine 0.83 (0.52-1.04) mg/dL Est GFR (CKD-EPI)AfAm >90 (>60 ml/min/1.73 sqM) Est GFR (CKD-EPI)NonAf 82 (>60 ml/min/1.73 sqM) Glucose 36 L* (74-99) mg/dL POC Glucose (mg/dL) 45 L (75-99) mg/dL POC Glu Cable Respooler ID Yumiko Block Lactic Ac Sepsis Rflx Plasma Lactic Acid Faisal (0.7-2.0) mmol/L Calcium 8.0 L (8.4-10.2) mg/dL Total Bilirubin (0.2-1.3) mg/dL AST (14-36) U/L ALT (4-34) U/L Alkaline Phosphatase (38-126) U/L Troponin I (0.000-0.034) ng/mL Total Protein (6.3-8.2) g/dL Albumin (3.5-5.0) g/dL Urine Color Urine Appearance (Clear) Urine pH (5.0-8.0) Ur Specific Jewett (1.001-1.035) Urine Protein (Negative) Urine Glucose (UA) (Negative) Urine Ketones (Negative) Urine Blood (Negative) Urine Nitrite (Negative) Urine Bilirubin (Negative) Urine Urobilinogen (<2.0) mg/dL Ur Leukocyte Esterase (Negative) Urine RBC (0-5) /hpf Urine WBC (0-5) /hpf Ur Squamous Epith Cells (0-4) /hpf Urine Bacteria (None) /hpf Urine Mucus (None) /hpf Stool Occult Blood (Negative) Blood Type Blood Type Confirm Blood Type Recheck Bld Type Recheck Status Antibody Screen Crossmatch Spec Expiration Date 11/07/20 11/07/20 11/07/20 Range/Units 08:26 08:45 12:00 WBC (3.8-10.6) k/uL RBC (3.80-5.40) m/uL Hgb (11.4-16.0) gm/dL Hct (34.0-46.0) % MCV (80.0-100.0) fL MCH (25.0-35.0) pg MCHC (31.0-37.0) g/dL RDW (11.5-15.5) % Plt Count (150-450) k/uL MPV Neutrophils % % Lymphocytes % % Monocytes % % Eosinophils % % Basophils % % Neutrophils # (1.3-7.7) k/uL Lymphocytes # (1.0-4.8) k/uL Monocytes # (0-1.0) k/uL Eosinophils # (0-0.7) k/uL Basophils # (0-0.2) k/uL Manual Slide Review Hypochromasia Macrocytosis PT (9.0-12.0) sec INR (<1.2) APTT (22.0-30.0) sec Sodium (137-145) mmol/L Potassium (3.5-5.1) mmol/L Chloride (98-107) mmol/L Carbon Dioxide (22-30) mmol/L Anion Gap mmol/L BUN (7-17) mg/dL Creatinine (0.52-1.04) mg/dL Est GFR (CKD-EPI)AfAm (>60 ml/min/1.73 sqM) Est GFR (CKD-EPI)NonAf (>60 ml/min/1.73 sqM) Glucose (74-99) mg/dL POC Glucose (mg/dL) 39 L 270 H 102 H (75-99) mg/dL POC Glu Cable Respooler ID Yumiko Block, Yumiko Fortune Lactic Ac Sepsis Rflx Plasma Lactic Acid Faisal (0.7-2.0) mmol/L Calcium (8.4-10.2) mg/dL Total Bilirubin (0.2-1.3) mg/dL AST (14-36) U/L ALT (4-34) U/L Alkaline Phosphatase (38-126) U/L Troponin I (0.000-0.034) ng/mL Total Protein (6.3-8.2) g/dL Albumin (3.5-5.0) g/dL Urine Color Urine Appearance (Clear) Urine pH (5.0-8.0) Ur Specific Jewett (1.001-1.035) Urine Protein (Negative) Urine Glucose (UA) (Negative) Urine Ketones (Negative) Urine Blood (Negative) Urine Nitrite (Negative) Urine Bilirubin (Negative) Urine Urobilinogen (<2.0) mg/dL Ur Leukocyte Esterase (Negative) Urine RBC (0-5) /hpf Urine WBC (0-5) /hpf Ur Squamous Epith Cells (0-4) /hpf Urine Bacteria (None) /hpf Urine Mucus (None) /hpf Stool Occult Blood (Negative) Blood Type Blood Type Confirm Blood Type Recheck Bld Type Recheck Status Antibody Screen Crossmatch Spec Expiration Date Disposition Clinical Impression: History of pulmonary embolism, Syncope, Transient hypotension, GI bleed Disposition: ADMITTED IP TO THIS [facility] Condition: Serious Is patient prescribed a controlled substance at d/c from ED?: No Decision to Admit Reason: Admit from EC Decision Date: 11/06/20 Decision Time: 18:06
[2020-11-06 17:08] LABS: Basophils % (A) 0 %; Eosinophils # (A) 0.2 k/uL (0-0.7); Eosinophils % (A) 3 %; HCT 33.7 % (34.0-46.0); HGB 10.1 gm/dL (11.4-16.0); Hypochromasia Marked; Lymphocytes % (A) 31 %; MCH 30.7 pg (25.0-35.0); MCHC 29.9 g/dL (31.0-37.0); MCV 102.5 fL (80.0-100.0); Macrocytosis Slight; Mean Platelet Volume 8.7; Monocytes # (A) 0.3 k/uL (0-1.0); Monocytes % (A) 4 %; Neutrophils # (A) 3.9 k/uL (1.3-7.7); Neutrophils % (A) 60 %; RBC 3.29 m/uL (3.80-5.40); RDW 14.2 % (11.5-15.5); WBC 6.5 k/uL (3.8-10.6)
--- NOTE | 2020-11-06 17:09 | XR ---
EXAMINATION TYPE: XR chest 2V DATE OF EXAM: 11/06/2020 COMPARISON: 06/17/2020 INDICATION: Syncope TECHNIQUE: Frontal and lateral views of the chest are obtained. FINDINGS: The heart size is normal. The pulmonary vasculature is normal. The lungs are clear. IMPRESSION: 1. No acute pulmonary process.
[2020-11-06 17:21] LABS: Albumin 2.6 g/dL (3.5-5.0); Calcium 8.6 mg/dL (8.4-10.2); Potassium 4.8 mmol/L (3.5-5.1); Total Bilirubin 0.6 mg/dL (0.2-1.3); Total Protein 6.3 g/dL (6.3-8.2)
[2020-11-06 17:28] LABS: Platelet Count 603 k/uL (150-450)
[2020-11-06 17:37] LABS: Partial Thromboplastin Time 23.4 sec (22.0-30.0); Prothrombin Time 10.5 sec (9.0-12.0)
[2020-11-06] MEDS ORDERED: NALOXONE 0.4 MG/ML 1 ML VIAL IV PRN (18:06)
[2020-11-06] MEDS ORDERED: PANTOPRAZOLE 40 MG/10 ML VIAL IVP ONE (18:06)
[2020-11-06] MEDS ORDERED: ALBUTEROL HFA INHALER INHALATION PRN (18:16)
[2020-11-06] MEDS ORDERED: MORPHINE MISCELLANE SCH (18:30)
[2020-11-06] MEDS ORDERED: PAIN PUMP MISCELLANE SCH (18:30)
[2020-11-06] MEDS: SYMBICORT 80-4.5 MCG INHALER INHALATION SCH (20:18)
[2020-11-06] MEDS: ONDANSETRON 4 MG/2 ML VIAL IVP PRN (20:24)
[2020-11-06] MEDS: PREGABALIN 75 MG CAP PO SCH (21:57)
[2020-11-07 01:57] LABS: HCT 25.7 % (34.0-46.0); Hypochromasia Marked; MCH 31.6 pg (25.0-35.0); MCV 101.8 fL (80.0-100.0); Macrocytosis Slight; Mean Platelet Volume 7.7; Platelet Count 462 k/uL (150-450); RBC 2.52 m/uL (3.80-5.40); RDW 13.8 % (11.5-15.5); WBC 6.2 k/uL (3.8-10.6)
[2020-11-07] MEDS: ONDANSETRON 4 MG/2 ML VIAL IVP PRN ×2 (03:02→08:24)
[2020-11-07] MEDS ORDERED: carvediloL 6.25 MG TAB PO SCH (07:30)
[2020-11-07 07:45] LABS: Basophils % (A) 0 %; Eosinophils # (A) 0.1 k/uL (0-0.7); Eosinophils % (A) 1 %; HCT 26.4 % (34.0-46.0); HGB 8.1 gm/dL (11.4-16.0); Hypochromasia Marked; Lymphocytes # (A) 0.8 k/uL (1.0-4.8); Lymphocytes % (A) 14 %; MCH 31.2 pg (25.0-35.0); MCHC 30.5 g/dL (31.0-37.0); MCV 102.4 fL (80.0-100.0); Macrocytosis Slight; Mean Platelet Volume 6.8; Monocytes # (A) 0.3 k/uL (0-1.0); Monocytes % (A) 5 %; Neutrophils # (A) 4.6 k/uL (1.3-7.7); Neutrophils % (A) 78 %; Platelet Count 487 k/uL (150-450); RBC 2.58 m/uL (3.80-5.40); RDW 13.9 % (11.5-15.5); WBC 5.9 k/uL (3.8-10.6)
[2020-11-07 07:46] LABS: Appearance,Urine Cloudy (Clear); Bacteria,Urine Rare /hpf; Bilirubin,Urine Negative (Negative); Blood,Urine Small (Negative); Color,Urine Yellow; Glucose,Urine (UA) Negative (Negative); Ketones,Urine 1+ (Negative); Leukocyte Esterase,Urine Negative (Negative); Mucus,Urine Rare /hpf; Nitrite,Urine Negative (Negative); PH, Urine 5.5 (5.0-8.0); Protein,Urine 1+ (Negative); RBC,Urine 1 /hpf (0-5); Specific Gravity,Urine 1.022 (1.001-1.035); Squamous Epithelial Cell,Urine 3 /hpf (0-4); WBC,Urine 1 /hpf (0-5)
[2020-11-07 07:58] LABS: African American GFR (CKD) >90 (>60 ml/min/1.73 sqM); Anion Gap 5 mmol/L; Blood Urea Nitrogen 15 mg/dL (7-17); Carbon Dioxide 21 mmol/L (22-30); Chloride 110 mmol/L (98-107); Non-African American GFR(CKD) 82 (>60 ml/min/1.73 sqM); Potassium 4.2 mmol/L (3.5-5.1); Sodium 136 mmol/L (137-145)
[2020-11-07 08:05] LABS: Glucose 36 mg/dL (74-99)
[2020-11-07 08:20] LABS: Glucose,Whole Blood 45 mg/dL (75-99)
[2020-11-07] MEDS: PREGABALIN 75 MG CAP PO SCH ×3 (08:24→16:28)
[2020-11-07 08:28] LABS: Glucose,Whole Blood 39 mg/dL (75-99)
[2020-11-07] MEDS ORDERED: DEXTROSE 50% SYRINGE 50 ML IVP ONE (08:34)
[2020-11-07] MEDS ORDERED: DEXTROSE 50% SYRINGE 50 ML IVP STA (08:36)
[2020-11-07 08:48] LABS: Glucose,Whole Blood 270 mg/dL (75-99)
[2020-11-07] MEDS: SYMBICORT 80-4.5 MCG INHALER INHALATION SCH ×2 (08:54→21:36)
[2020-11-07] MEDS ORDERED: PANTOPRAZOLE 40 MG/10 ML VIAL IVP SCH ×2 (09:00→21:00)
[2020-11-07] MEDS ORDERED: PAIN PUMP MISCELLANE PRN (09:32)
[2020-11-07] MEDS ORDERED: MORPHINE MISCELLANE PRN (09:32)
[2020-11-07] MEDS ORDERED: NITROGLYCERIN SL TABS 0.4 MG TAB SUBLINGUAL ONE (10:18)
[2020-11-07 11:12] VITALS: BMI 13.1
[2020-11-07] MEDS ORDERED: SODIUM CHLORIDE 0.9% 1,000 ML IV SCH (11:15)
[2020-11-07 12:04] LABS: Glucose,Whole Blood 102 mg/dL (75-99)
[2020-11-07] MEDS ORDERED: OCTREOTIDE 100 MCG/ML INJ IVP ONE (15:00)
[2020-11-07 15:06] LABS: Glucose,Whole Blood 101 mg/dL (75-99)
[2020-11-07 15:07] LABS: Glucose,Whole Blood 81 mg/dL (75-99)
[2020-11-07 15:23] VITALS: TEMP 96.9
[2020-11-07] MEDS ORDERED: SODIUM CHLORIDE 0.9% 1,000 ML IV ONE ×2 (15:34→20:33)
[2020-11-07] MEDS ORDERED: PROTAMINE SULFATE 10 MG/ML 5 ML VIAL IV STA (15:56)
--- NOTE | 2020-11-07 16:04 | XR ---
EXAMINATION TYPE: XR chest 1V portable DATE OF EXAM: 11/07/2020 COMPARISON: Chest x-ray 11/06/2020 HISTORY: Central line placement TECHNIQUE: Single frontal view of the chest is obtained. FINDINGS: Left jugular central venous catheter has been placed in the interval, distal tip of the ri ght atrium. There is no evident pneumothorax or pleural effusion. Surgical clips are present in the r ight upper quadrant. NG tube is present with the distal tip in the left upper quadrant. Cardiac media stinal silhouette is unchanged. There are overlying cardiac leads. IMPRESSION: No evident complication status post central line placement
--- NOTE | 2020-11-07 16:06 | P.CRDCN ---
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 We were asked to see the patient as a consult for chest discomf ort. When I came in to see the patient she was already transferred to the intensive care unit because she did have some change in mental status and also she developed upper GI bleed. The patient is confused. The history was taken from the chart as well as from the nurse taking care of the patient. Apparently the patient was found to have some change in mental status and ambulance was called where the patient was brought to the emergency department. She did have multiple episodes of vomiting blood and also she did have multiple episodes of blood in the stool. The hemoglobin dropped to around 8. Currently GI is in process of seeing the patient. Later on today she did have an episode of chest discomfort and for that reason we consulted to see her. The first troponin came in to be unremarkable. I do feel that the chest discomfort is likely related to the anemia. Please note that the patient underwent a heart catheterization. Muscle go this year and that revealed mild nonobstructive coronary artery disease. She underwent an echocardiogram also in earlier and that revealed car diomyopathy with EF between 35-40% which is her baseline. Currently the patient is in the intensive care unit. She is possibly going to be intubated. Antiplatelet and anticoagulation are on hold. She is in process of receiving protamine to reverse her Lovenox. From the cardiovascular standpoint overview, there is no reason and no indication to do any further cardiac workup. We will follow-up with the patient on when necessary case. Past Medical History Past Medical History: Asthma, CVA/TIA, Deep Vein Thrombosis (DVT), Osteoarthritis (OA), Pulmonary Embolus (PE) Additional Past Medical History / Comment(s): sticky platelet syndrome, bronchitis, History of Any Multi-Drug Resistant Organisms: ESBL Date of last positivie culture/infection: 10/15/18 ESBL-Proteus; 09/07/18 ESBL E.coli MDRO Source:: Urine ESBL Past Surgical History: Back Surgery, Cholecystectomy, Coronary Bypass/CABG Additional Past Surgical History / Comment(s): BKA, left lower leg, aortic bypass right leg, right leg fasciotomy. Past Anesthesia/Blood Transfusion Reactions: No Reported Reaction Additional Past Anesthesia/Blood Transfusion Reaction / Comment(s): pt stated has had a blood transfusion in past-no reaction. Past Psychological History: Anxiety, Depression Smoking Status: Former smoker Past Alcohol Use History: None Reported Past Drug Use History: None Reported - Past Family History Mother History Unknown: Yes Additional Family Medical History / Comment(s): MS, legally blind, cataracts Father Family Medical History: No Reported History Additional Family Medical History / Comment(s): Was younger when he , car accident Medications and Allergies Home Medications Medication Instructions Recorded Confirmed Type Clopidogrel Bisulfate [Plavix] 75 mg PO DAILY 12/06/18 11/06/20 History Nitroglycerin Sl Tabs [Nitrostat] 0.4 mg SUBLINGUAL Q5M PRN tab 12/28/18 Rx Albuterol Sulfate [Proair Hfa] 1 puff INHALATION RT-Q4H PRN 04/09/19 11/06/20 History carvediloL [Coreg] 6.25 mg PO BID-W/MEALS #60 tab 04/12/19 11/06/20 Rx Enoxaparin [Lovenox] 40 mg SQ DAILY 05/01/19 11/06/20 History Furosemide [Lasix] 40 mg PO DAILY PRN 05/11/19 11/06/20 History Acetaminophen Tab [Tylenol] 500 mg PO Q6HR PRN tab 05/14/19 11/06/20 Rx Fluticasone/Salmeterol [Advair 1 puff INHALATION RT-BID 05/17/19 11/06/20 History 250-50 Diskus] Famotidine [Pepcid] 20 mg PO DAILY PRN 06/03/19 11/06/20 History Ipratropium-Albuterol Nebulize 3 ml INHALATION RT-Q6H PRN 07/11/19 11/06/20 History [Duoneb 0.5 mg-3 mg/3 ml Soln] Butalb/Acetaminophen/Caffeine 1 tab PO Q8H PRN 06/18/20 11/06/20 History [Fioricet 50-325-40] Dicyclomine HCl 20 mg PO BID PRN 06/18/20 11/06/20 History Morphine Sulfate Ir [MSIR] 15 mg PO DAILY PRN 11/06/20 11/06/20 History Pain Pump W/Morphine 1 dose INTRATHECA DIRECTED 11/06/20 11/06/20 History Pregabalin [Lyrica] 75 mg PO TID 11/06/20 11/06/20 History lisinopriL [Zestril] 2.5 mg PO DAILY 11/06/20 11/06/20 History Allergies Allergy/AdvReac Type Severity Reaction Status Date / Time ibuprofen Allergy Unknown Verified 11/06/20 17:33 trazodone Allergy Chest Pain Verified 11/06/20 17:33 Physical Exam Vitals: Vital Signs Temp Pulse Pulse Resp BP BP Pulse Ox 11/07/20 15:55 96.9 F L 118 H 27 H 117/76 11/07/20 15:54 96.9 F L 117 H 28 H 117/76 11/07/20 15:22 96.9 F L 96 14 96/38 11/07/20 11:09 87 16 122/68 100 11/07/20 10:31 106 H 106/69 100 11/07/20 10:30 122 H 18 92/60 100 11/07/20 10:25 88 18 120/87 100 11/07/20 10:20 65 18 128/84 100 11/07/20 10:15 82 16 140/86 100 11/07/20 08:30 86 16 11/07/20 04:00 84 16 102/59 100 11/07/20 00:00 71 16 98/60 100 11/06/20 20:00 97.5 F L 70 16 106/65 100 11/06/20 18:30 85 16 113/89 100 11/06/20 18:15 77 15 116/79 99 11/06/20 18:00 70 11 L 115/78 99 11/06/20 17:45 77 18 119/76 97 11/06/20 17:00 71 18 115/79 99 11/06/20 16:45 85 15 98/68 99 11/06/20 16:30 97.5 F L 85 12 11/06/20 16:16 18 76/63 94 L Intake and Output 11/07/20 11/07/20 11/07/20 06:59 14:59 22:59 Intake Total 0 0 288 Balance 0 0 288 Intake: Oral 0 0 Blood Product 288 Rc As-1 Unit 0 [id number] Rc Pheresis 2 As3 Unit 288 [id number] Other: Voiding Method Bedpan # Voids 1 Weight 36 kg 36 kg - Constitutional General appearance: no acute distress - Respiratory Respiratory: bilateral: diminished - Cardiovascular Rhythm: regular Heart sounds: normal: S1, S2 Results 11/07/20 07:21 11/07/20 07:21 Cardiac Enzymes 11/06/20 11/06/20 Range/Units 16:27 16:43 AST 22 (14-36) U/L Troponin I <0.012 (0.000-0.034) ng/mL Coagulation 11/06/20 Range/Units 16:27 PT 10.5 (9.0-12.0) sec APTT 23.4 (22.0-30.0) sec CBC 11/06/20 11/07/20 11/07/20 Range/Units 16:43 00:46 07:21 WBC 6.5 6.2 5.9 (3.8-10.6) k/uL RBC 3.29 L 2.52 L 2.58 L (3.80-5.40) m/uL Hgb 10.1 L 8.0 L D 8.1 L (11.4-16.0) gm/dL Hct 33.7 L 25.7 L 26.4 L (34.0-46.0) % Plt Count 603 H 462 H 487 H (150-450) k/uL Comprehensive Metabolic Panel 11/06/20 11/07/20 Range/Units 16:43 07:21 Sodium 134 L 136 L (137-145) mmol/L Potassium 4.8 4.2 (3.5-5.1) mmol/L Chloride 104 110 H (98-107) mmol/L Carbon Dioxide 19 L 21 L (22-30) mmol/L BUN 15 15 (7-17) mg/dL Creatinine 0.90 0.83 (0.52-1.04) mg/dL Glucose 79 36 L* (74-99) mg/dL Calcium 8.6 8.0 L (8.4-10.2) mg/dL AST 22 (14-36) U/L ALT 16 (4-34) U/L Alkaline Phosphatase 123 (38-126) U/L Total Protein 6.3 (6.3-8.2) g/dL Albumin 2.6 L (3.5-5.0) g/dL Current Medications Generic Name Dose Route Start Last Admin Trade Name Freq PRN Reason Stop Dose Admin Albuterol Sulfate 1 puff 11/06/20 18:16 Albuterol Hfa Inhaler INHALATION RT-Q4H PRN Shortness Of Breath Budesonide/Formoterol Fumarate 2 puff 11/06/20 20:00 11/07/20 08:54 Symbicort 80-4.5 Mcg Inhaler INHALATION Not Given RT-BID DEIRDRE Sodium Chloride 1,000 mls @ 50 mls/hr 11/07/20 11:15 Saline 0.9% IV .Q20H DEIRDRE Octreotide Acetate 500 mcg/ 250 mls @ 25 mls/hr 11/07/20 15:30 Sodium Chloride IV .Q10H DEIRDRE 50 MCG/HR Sodium Chloride 1,000 mls @ 999 mls/hr 11/07/20 15:34 Saline 0.9% IV 11/07/20 16:34 .Q1H1M ONE Naloxone HCl 0.2 mg 11/06/20 18:06 Naloxone 0.4 Mg/Ml 1 Ml Vial IV Q2M PRN Opioid Reversal Non-Formulary Medication 1 dose 11/07/20 09:32 Pain Pump W/Morphine MISCELLANE DIRECTED PRN Pain Ondansetron HCl 4 mg 11/06/20 19:52 11/07/20 08:24 Ondansetron 4 Mg/2 Ml Vial IVP 4 mg Q6HR PRN Administration Nausea And Vomiting Pantoprazole Sodium 40 mg 11/07/20 09:00 11/07/20 08:24 Pantoprazole 40 Mg/10 Ml Vial IVP 40 mg DAILY DEIRDRE Administration Pregabalin 75 mg 11/06/20 22:00 11/07/20 08:24 Pregabalin 75 Mg Cap PO 75 mg TID DEIRDRE Administration Intake and Output 11/07/20 11/07/20 11/07/20 06:59 14:59 22:59 Intake Total 0 0 288 Balance 0 0 288 Intake: Oral 0 0 Blood Product 288 Rc As-1 Unit 0 [id number] Rc Pheresis 2 As3 Unit 288 [id number] Other: Voiding Method Bedpan # Voids 1 Weight 36 kg 36 kg Patient Weight 11/08/20 06:59 Weight 36 kg 11/07/20 07:21 11/07/20 07:21 Assessment and Plan Assessment: Assessment #1 upper GI bleed of unknown etiology at this point #2 change in mental status #3 blood loss anemia #4 sticky platelet syndrome #5 history of bilateral lower extremities amputation #6 cardiomyopathy, nonischemic Plan #1 continue holding the Plavix as well as Lovenox #2 the patient is in process of having seen by the GI service with possible endoscopy #3 no reason to do any further cardiac workup at this point #4 follow-up with the patient on when necessary case
[2020-11-07] MEDS: OCTREOTIDE 500 MCG in SODIUM CHLORIDE 0.9% 250 ML IV SCH (16:10)
[2020-11-07] MEDS ORDERED: METOCLOPRAMIDE 5 MG/ML 2 ML VIAL IVP STA (16:16)
--- NOTE | 2020-11-07 16:19 | P.PN ---
Progress Note - Text Progress Note Date: 11/07/20 A team called Arrived to room to find patient actively vomiting blood. She had 4-5 episode of bloody emesis. She appeared in distress with BP 78/45. 0.9L NS started at wide open. 1 unit pRBC ordered. Attempt second IV unsucessful. Contacted Dr. Alcantara over the phone and informed of the case and situation. Patient transferred to the ICU. Second unit of blood ordered as she continue to have bloody emesis. Anesthesia and nursing unable to obtain IV. Admitting physician contacted and made aware of the situation he did come to bedside to see the patient. NGT placed with return of azucena red blood. Dr. Singleton at bedside and placed a central line. Patient was having intermittent difficulty with mentation. Octreotide was ordered, she had already received protonix. Patient greater than 8 hours from last lovenox dose, however due to severity of bleed protamine was ordered. Will follow blood with platelet as likely high grade of platelet dysfunction due to plavix use. Patient with continued bleeding. 1 additional unit of pRBC ordered for a total of 3 units. A total of 65 minutes of critical care time was spent with this patient including coordination of care and speciality care. DX: Acute blood loss anemia, hypovolemic shock, Upper GI bleed. At bedside for EGD patient developed hypotension, levophed started and managed with [employer]. She has received 5 units of blood 2 of platelets, and 1 FFP,1 of cryo. She continues to have bleeding unable to localize on EGD. Dr. Alcantara has been at bedside for 2 hours with EGD. Contact Dr. Snider who came urgently to bedside. Dr. Singleton updated over the phone. Sister updated over the phone and made aware of poor prognosis. Dr. Nicole Updated over the phone he will attempt to start transfer to [facility]. A total of an additional 45 minutes of critical care time was spent managing massive transfusion protocol. DX: Systolic CHF, Acute blood loss anemia, hypovolemic shock, Upper GI bleed, Sticky platelet syndrome
[2020-11-07] MEDS ORDERED: fentaNYL (PF) 50 MCG/ML 2 ML AMP IVP ONE (16:30)
[2020-11-07] MEDS ORDERED: ETOMIDATE 2 MG/ML 10 ML VIAL ONE (16:35)
[2020-11-07] MEDS ORDERED: SUCCINYLCHOLINE CHLORIDE 100 MG/5 ML SYR IV ONE (16:35)
[2020-11-07] MEDS: NOREPINEPHRINE 8 MG in SODIUM CHLORIDE 0.9% 250 ML IV SCH ×2 (17:00→21:53)
[2020-11-07 18:25] LABS: Glucose,Whole Blood 165 mg/dL (75-99)
[2020-11-07] MEDS ORDERED: CALCIUM GLUCONATE 1 GM in SODIUM CHLORIDE 0.9% 100 ML IVPB ONE (19:03)
--- NOTE | 2020-11-07 19:53 | P.CONS ---
History of Present Illness - Reason for Consult Consult date: 11/07/20 GI bleed Requesting physician: Ronni Govea - Chief Complaint Weakness, altered mental status - History of Present Illness 50-year-old female with multiple medical comorbidities including prior DVT and PE, reported history of sticky platelet syndrome on therapy with Lovenox, aspirin and Plavix, bilateral lower extremity amputations any history of cardiomyopathy who presented to the hospital for altered mental status. Of note, history is been taken on review of medical record and in discussion with the patient in the medical team. The patient was brought by EMS were called for weakness. The patient had reported feeling weak and tired over the few days prior to presentation and reported an episode of hematemesis as well as reporting dark colored bowel movements. In the emergency department the patient was found to have a hemoglobin was found to be 10.1 approximately the patient's baseline hemoglobin and subsequently found to be 8.0 at midnight and then a 0.1 this morning. The patient had no further episodes of hematemesis or signs or symptoms of GI bleeding during the day however this afternoon the patient developed multiple episodes of hematemesis. The patient was subsequently brought to the intensive care unit and had a central line placed. The patient has NG tube with a significant amount of bright red blood suctioned. In the ICU the patient is denying any prior episodes of similar bleeding. The patient was scheduled for emergent EGD for treatment of GI bleeding. Review of Systems REVIEW OF SYSTEMS: CONSTITUTIONAL: Denies any fevers, chills, weight change but does report fatigue. CARDIOVASCULAR: Denies any chest pain, palpitations high or low blood pressures RESPIRATORY: Denies any shortness of breath, hemoptysis or cough. GENITOURINARY: No dysuria or hematuria. MUSCULOSKELETAL: No weakness reported. SKIN: Denies any new rashes or lesions, jaundice or pallor. PSYCHIATRIC: Denies any depression or anxiety. NEUROLOGY: Denies headache, denies any new focal deficits. EARS/NOSE/THROAT: No recent hearing change, congestion, nasal discharge or sore throat. EYES: No pain in eyes, discharge or change in vision. GASTROINTESTINAL: As per HPI. Past Medical History Past Medical History: Asthma, CVA/TIA, Deep Vein Thrombosis (DVT), Osteoarthritis (OA), Pulmonary Embolus (PE) Additional Past Medical History / Comment(s): sticky platelet syndrome, bronchitis, History of Any Multi-Drug Resistant Organisms: ESBL Year Discovered:: 10/15/18 ESBL-Proteus; 09/07/18 ESBL E.coli MDRO Source:: Urine ESBL Past Surgical History: Back Surgery, Cholecystectomy, Coronary Bypass/CABG Additional Past Surgical History / Comment(s): BKA, left lower leg, aortic bypass right leg, right leg fasciotomy. Past Anesthesia/Blood Transfusion Reactions: No Reported Reaction Additional Past Anesthesia/Blood Transfusion Reaction / Comm: pt stated has had a blood transfusion in past-no reaction. Past Psychological History: Anxiety, Depression Smoking Status: Former smoker Past Alcohol Use History: None Reported Past Drug Use History: None Reported - Past Family History Mother History Unknown: Yes Additional Family Medical History / Comment(s): MS, legally blind, cataracts Father Family Medical History: No Reported History Additional Family Medical History / Comment(s): Was younger when he , car accident Medications and Allergies Home Medications Medication Instructions Recorded Confirmed Type Clopidogrel Bisulfate [Plavix] 75 mg PO DAILY 12/06/18 11/06/20 History Nitroglycerin Sl Tabs [Nitrostat] 0.4 mg SUBLINGUAL Q5M PRN tab 12/28/18 11/06/20 Rx Albuterol Sulfate [Proair Hfa] 1 puff INHALATION RT-Q4H PRN 04/09/19 11/06/20 Hi story carvediloL [Coreg] 6.25 mg PO BID-W/MEALS #60 tab 04/12/19 11/06/20 Rx Enoxaparin [Lovenox] 40 mg SQ DAILY 05/01/19 11/06/20 History Furosemide [Lasix] 40 mg PO DAILY PRN 05/11/19 11/06/20 History Acetaminophen Tab [Tylenol] 500 mg PO Q6HR PRN tab 05/14/19 11/06/20 Rx Fluticasone/Salmeterol [Advair 1 puff INHALATION RT-BID 05/17/19 11/06/20 History 250-50 Diskus] Famotidine [Pepcid] 20 mg PO DAILY PRN 06/03/19 11/06/20 History Ipratropium-Albuterol Nebulize 3 ml INHALATION RT-Q6H PRN 07/11/19 11/06/20 History [Duoneb 0.5 mg-3 mg/3 ml Soln] Butalb/Acetaminophen/Caffeine 1 tab PO Q8H PRN 06/18/20 11/06/20 History [Fioricet 50-325-40] Dicyclomine HCl 20 mg PO BID PRN 06/18/20 11/06/20 History Morphine Sulfate Ir [MSIR] 15 mg PO DAILY PRN 11/06/20 11/06/20 History Pain Pump W/Morphine 1 dose INTRATHECA DIRECTED 11/06/20 11/06/20 History Pregabalin [Lyrica] 75 mg PO TID 11/06/20 11/06/20 History lisinopriL [Zestril] 2.5 mg PO DAILY 11/06/20 11/06/20 History Allergies Allergy/AdvReac Type Severity Reaction Status Date / Time ibuprofen Allergy Unknown Verified 11/06/20 17:33 trazodone Allergy Chest Pain Verified 11/06/20 17:33 Physical Exam Vitals: Vital Signs Temp Pulse Pulse Resp BP BP Pulse Ox 11/07/20 18:16 90 20 107/81 11/07/20 18:15 96 20 100/50 11/07/20 18:00 98 22 97/35 95 11/07/20 17:45 101 H 24 103/77 96 11/07/20 17:36 96.9 F L 96 20 84/61 11/07/20 17:34 97 20 97/51 11/07/20 17:30 106 H 20 108/62 92 L 11/07/20 17:15 109 H 20 87/25 95 11/07/20 17:00 112 H 20 108/29 100 11/07/20 16:51 107 H 20 108/62 11/07/20 16:48 96.9 F L 124 H 24 203/136 11/07/20 16:45 129 H 20 104/50 91 L 11/07/20 16:41 96.9 F L 130 H 24 79/62 11/07/20 16:30 122 H 34 H 150/97 60 L 11/07/20 16:17 102 H 20 150/97 11/07/20 16:15 98 21 100/73 86 L 11/07/20 16:00 116 H 13 117/76 83 L 11/07/20 15:55 96.9 F L 118 H 27 H 117/76 11/07/20 15:54 96.9 F L 117 H 28 H 117/76 11/07/20 15:45 95 31 H 130/87 11/07/20 15:30 85 24 96/38 11/07/20 15:22 96.9 F L 96 14 96/38 11/07/20 15:15 103 H 28 H 109/98 11/07/20 15:04 84 15 11/07/20 11:09 87 16 122/68 100 11/07/20 10:31 106 H 106/69 100 11/07/20 10:30 122 H 18 92/60 100 11/07/20 10:25 88 18 120/87 100 11/07/20 10:20 65 18 128/84 100 11/07/20 10:15 82 16 140/86 100 11/07/20 08:30 86 16 11/07/20 04:00 84 16 102/59 100 11/07/20 00:00 71 16 98/60 100 11/06/20 20:00 97.5 F L 70 16 106/65 100 Intake and Output 11/07/20 11/07/20 11/07/20 06:59 14:59 22:59 Intake Total 0 0 4055.651 Output Total 20 Balance 0 0 4035.651 Intake: IV 2100 Sodium Chloride 0.9% 1, 100 000 ml @ 50 mls/hr IV . Q20H [facility] Rx#:[id number] Sodium Chloride 0.9% 1, 1000 000 ml @ 999 mls/hr IV . Q1H1M ONE Rx#:[id number] Sodium Chloride 0.9% 1, 1000 000 ml @ 999 mls/hr IV . Q1H1M ONE Rx#:[id number] Intake, IV Titration 30.651 Amount Norepinephrine 8 mg In 30.651 Sodium Chloride 0.9% 250 ml @ 0.05 MCG/KG/MIN 3. 483 mls/hr IV .Q24H [facility] Rx#:[id number] Oral 0 0 Blood Product 1925 Ffp 24 Cpd Unit 326 [id number] Platelet Pheresis Acda 381 Unit [id number] Pooled Cryoprecipitate 0 Unit [id number] Rc As-1 Unit 0 [id number] Rc As-1 Unit 310 [id number] Rc As-1 Unit 310 [id number] As-1 Unit 310 [id number] Pheresis 2 As3 Unit 288 [id number] Output: Urine 20 Other: Voiding Method Bedpan Indwelling Catheter # Voids 1 Weight 36 kg 36 kg On physical examination, patient appears comfortable in no apparent distress. HEAD: Normocephalic, atraumatic. EYES: No scleral icterus. No conjunctival injection. MOUTH: No lesions, tongue midline. NECK: Trachea midline, no gross abnormalities. CHEST: Decreased air entry in all lung duncan. HEART: S1-S2 appreciated. ABDOMEN: Soft, thin with well-healed surgical scarring. Bowelsounds are positive. No organomegaly. No guarding or rigidity. EXTREBilateral lower extremity amputation . SKIN: No rashes, no jaundice. NEUROLOGIC: Alert and oriented x3. No focal deficits. Results CBC & Chem 7: 11/07/20 07:21 11/07/20 07:21 Labs: Abnormal Lab Results - Last 24 Hours (Table) 11/06/20 11/07/20 11/07/20 Range/Units 16:27 00:46 07:18 RBC 2.52 L (3.80-5.40) m/uL Hgb 8.0 L D (11.4-16.0) gm/dL Hct 25.7 L (34.0-46.0) % MCV 101.8 H (80.0-100.0) fL MCHC (31.0-37.0) g/dL Plt Count 462 H (150-450) k/uL Lymphocytes # (1.0-4.8) k/uL Sodium (137-145) mmol/L Chloride (98-107) mmol/L Carbon Dioxide (22-30) mmol/L Glucose (74-99) mg/dL POC Glucose (mg/dL) (75-99) mg/dL Calcium (8.4-10.2) mg/dL Urine Appearance Cloudy H (Clear) Urine Protein 1+ H (Negative) Urine Ketones 1+ H (Negative) Urine Blood Small H (Negative) Urine Bacteria Rare H (None) /hpf Urine Mucus Rare H (None) /hpf Crossmatch See Detail 11/07/20 11/07/20 11/07/20 Range/Units 07:21 07:21 08:10 RBC 2.58 L (3.80-5.40) m/uL Hgb 8.1 L (11.4-16.0) gm/dL Hct 26.4 L (34.0-46.0) % MCV 102.4 H (80.0-100.0) fL MCHC 30.5 L (31.0-37.0) g/dL Plt Count 487 H (150-450) k/uL Lymphocytes # 0.8 L (1.0-4.8) k/uL Sodium 136 L (137-145) mmol/L Chloride 110 H (98-107) mmol/L Carbon Dioxide 21 L (22-30) mmol/L Glucose 36 L* (74-99) mg/dL POC Glucose (mg/dL) 45 L (75-99) mg/dL Calcium 8.0 L (8.4-10.2) mg/dL Urine Appearance (Clear) Urine Protein (Negative) Urine Ketones (Negative) Urine Blood (Negative) Urine Bacteria (None) /hpf Urine Mucus (None) /hpf Crossmatch 11/07/20 11/07/20 11/07/20 Range/Units 08:26 08:45 12:00 RBC (3.80-5.40) m/uL Hgb (11.4-16.0) gm/dL Hct (34.0-46.0) % MCV (80.0-100.0) fL MCHC (31.0-37.0) g/dL Plt Count (150-450) k/uL Lymphocytes # (1.0-4.8) k/uL Sodium (137-145) mmol/L Chloride (98-107) mmol/L Carbon Dioxide (22-30) mmol/L Glucose (74-99) mg/dL POC Glucose (mg/dL) 39 L 270 H 102 H (75-99) mg/dL Calcium (8.4-10.2) mg/dL Urine Appearance (Clear) Urine Protein (Negative) Urine Ketones (Negative) Urine Blood (Negative) Urine Bacteria (None) /hpf Urine Mucus (None) /hpf Crossmatch 11/07/20 11/07/20 Range/Units 14:46 18:23 RBC (3.80-5.40) m/uL Hgb (11.4-16.0) gm/dL Hct (34.0-46.0) % MCV (80.0-100.0) fL MCHC (31.0-37.0) g/dL Plt Count (150-450) k/uL Lymphocytes # (1.0-4.8) k/uL Sodium (137-145) mmol/L Chloride (98-107) mmol/L Carbon Dioxide (22-30) mmol/L Glucose (74-99) mg/dL POC Glucose (mg/dL) 101 H 165 H (75-99) mg/dL Calcium (8.4-10.2) mg/dL Urine Appearance (Clear) Urine Protein (Negative) Urine Ketones (Negative) Urine Blood (Negative) Urine Bacteria (None) /hpf Urine Mucus (None) /hpf Crossmatch Chest x-ray: report reviewed Assessment and Plan (1) GI bleed Narrative/Plan: 50-year-old female with multiple medical comorbidities on antiplatelet and anticoagulation therapy who presented for weakness and altered mental status. She reported episodes of hematemesis and dark stool prior to presentation. Hemoglobin initially remained stable however patient subsequently developed multiple episodes of hematemesis this afternoon and was transferred to the EGD. At this time emergent EGD was scheduled. Unclear etiology, may represent peptic ulcer disease, Anisa-Ramires tear, AVM, Dieulafoy lesion lesion or other etiology. Current Visit: Yes Status: Acute Code(s): K92.2 - GASTROINTESTINAL HEMORRHAGE, UNSPECIFIED SNOMED Code(s): 49428532 (2) History of pulmonary embolism Current Visit: Yes Status: Acute Code(s): Z86.711 - PERSONAL HISTORY OF PULMONARY EMBOLISM SNOMED Code(s): 424905575 Plan: Supportive care Nothing by mouth Continue Protonix therapy Continue to monitor hemoglobin and hematocrit and transfuse as needed Continue transfusion of packed red blood cells, platelets and fresh frozen plasma as planned Anesthesia Department contacted and the patient has been added on for an emergent EGD for upper GI bleed Thank you for allowing us to participate in the care of the patient
--- NOTE | 2020-11-07 19:56 | P.GSCN ---
History of Present Illness Consult date: 11/07/20 History of present illness: 50-year-old female currently admitted to the surgical ICU with GI bleed. I was requested to evaluate the patient urgently base and concern for hemorrhagic shock. Patient was having active hematemesis and was noted to be hypotensive. Prior to my arrival, the patient did have 4 units of packed red blood cells, 2 units of platelets and 1 unit of FFP. At my arrival, Dr. Alcantara, gastroenterology, was performing an emergent EGD at bedside. I was present for approximately 30 minutes of the upper endoscopy. It was unclear between 15 cm t o approximately 50 cm where the source of bleeding was occurring. Visibility was extremely difficult due to blood clots. It was also apparent that the patient has had a previous foregut surgery in which it appeared that the patient had a smaller gastric remnant anastomosis to the small bowel. It is unclear whether this is a Shilpa-en-Y gastric bypass versus a Billroth bypass. Patient was also noted to require pressor therapy. 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 She is chronically on a significant amount of anticoagulation with Plavix, aspirin and Lovenox. Review of Systems ROS unobtainable: due to endotracheal tube Past Medical History Past Medical History: Asthma, CVA/TIA, Deep Vein Thrombosis (DVT), Osteoarthritis (OA), Pulmonary Embolus (PE) Additional Past Medical History / Comment(s): sticky platelet syndrome, bronchitis, History of Any Multi-Drug Resistant Organisms: ESBL Year Discovered:: 10/15/18 ESBL-Proteus; 09/07/18 ESBL E.coli MDRO Source:: Urine ESBL Past Surgical History: Back Surgery, Cholecystectomy, Coronary Bypass/CABG Additional Past Surgical History / Comment(s): BKA, left lower leg, aortic bypass right leg, right leg fasciotomy. Past Anesthesia/Blood Transfusion Reactions: No Reported Reaction Additional Past Anesthesia/Blood Transfusion Reaction / Comm: pt stated has had a blood transfusion in past-no reaction. Past Psychological History: Anxiety, Depression Smoking Status: Former smoker Past Alcohol Use History: None Reported Past Drug Use History: None Reported - Past Family History Mother History Unknown: Yes Additional Family Medical History / Comment(s): MS, legally blind, cataracts Father Family Medical History: No Reported History Additional Family Medical History / Comment(s): Was younger when he , car accident Medications and Allergies Home Medications Medication Instructions Recorded Confirmed Type Clopidogrel Bisulfate [Plavix] 75 mg PO DAILY 12/06/18 11/06/20 History Nitroglycerin Sl Tabs [Nitrostat] 0.4 mg SUBLINGUAL Q5M PRN tab 12/28/18 11/06/20 Rx Albuterol Sulfate [Proair Hfa] 1 puff INHALATION RT-Q4H PRN 04/09/19 11/06/20 History carvediloL [Coreg] 6.25 mg PO BID-W/MEALS #60 tab 04/12/19 11/06/20 Rx Enoxaparin [Lovenox] 40 mg SQ DAILY 05/01/19 11/06/20 History Furosemide [Lasix] 40 mg PO DAILY PRN 05/11/19 11/06/20 History Acetaminophen Tab [Tylenol] 500 mg PO Q6HR PRN tab 05/14/19 11/06/20 Rx Fluticasone/Salmeterol [Advair 1 puff INHALATION RT-BID 05/17/19 11/06/20 History 250-50 Diskus] Famotidine [Pepcid] 20 mg PO DAILY PRN 06/03/19 11/06/20 History Ipratropium-Albuterol Nebulize 3 ml INHALATION RT-Q6H PRN 07/11/19 11/06/20 History [Duoneb 0.5 mg-3 mg/3 ml Soln] Butalb/Acetaminophen/Caffeine 1 tab PO Q8H PRN 06/18/20 11/06/20 History [Fioricet 50-325-40] Dicyclomine HCl 20 mg PO BID PRN 06/18/20 11/06/20 History Morphine Sulfate Ir [MSIR] 15 mg PO DAILY PRN 11/06/20 11/06/20 History Pain Pump W/Morphine 1 dose INTRATHECA DIRECTED 11/06/20 11/06/20 History Pregabalin [Lyrica] 75 mg PO TID 11/06/20 11/06/20 History lisinopriL [Zestril] 2.5 mg PO DAILY 11/06/20 11/06/20 History Allergies Allergy/AdvReac Type Severity Reaction Status Date / Time ibuprofen Allergy Unknown Verified 11/06/20 17:33 trazodone Allergy Chest Pain Verified 11/06/20 17:33 Surgical - Exam Osteopathic Statement: *. No significant issues noted on an osteopathic st ructural exam other than those noted in the History and Physical/Consult. Vital Signs Resp BP Pulse Ox 18 76/63 94 L 11/06/20 16:16 11/06/20 16:16 11/06/20 16:16 - General well nourished - Neck trachea midline - Respiratory Intubated - Abdomen Soft, nontender, nondistended, no rebound, no guarding, there is a surgical scar from sternum the pelvis and also what appears to be a Pfannenstiel scar. It is unclear whether this is from an abdominoplasty procedure or laparotomy Results - Labs 11/07/20 07:21 11/07/20 07:21 Abnormal Lab Results - Last 24 Hours (Table) 11/06/20 11/07/20 11/07/20 Range/Units 16:27 00:46 07:18 RBC 2.52 L (3.80-5.40) m/uL Hgb 8.0 L D (11.4-16.0) gm/dL Hct 25.7 L (34.0-46.0) % MCV 101.8 H (80.0-100.0) fL MCHC (31.0-37.0) g/dL Plt Count 462 H (150-450) k/uL Lymphocytes # (1.0-4.8) k/uL Sodium (137-145) mmol/L Chloride (98-107) mmol/L Carbon Dioxide (22-30) mmol/L Glucose (74-99) mg/dL POC Glucose (mg/dL) (75-99) mg/dL Calcium (8.4-10.2) mg/dL Urine Appearance Cloudy H (Clear) Urine Protein 1+ H (Negative) Urine Ketones 1+ H (Negative) Urine Blood Small H (Negative) Urine Bacteria Rare H (None) /hpf Urine Mucus Rare H (None) /hpf Crossmatch See Detail 11/07/20 11/07/20 11/07/20 Range/Units 07:21 07:21 08:10 RBC 2.58 L (3.80-5.40) m/uL Hgb 8.1 L (11.4-16.0) gm/dL Hct 26.4 L (34.0-46.0) % MCV 102.4 H (80.0-100.0) fL MCHC 30.5 L (31.0-37.0) g/dL Plt Count 487 H (150-450) k/uL Lymphocytes # 0.8 L (1.0-4.8) k/uL Sodium 136 L (137-145) mmol/L Chloride 110 H (98-107) mmol/L Carbon Dioxide 21 L (22-30) mmol/L Glucose 36 L* (74-99) mg/dL POC Glucose (mg/dL) 45 L (75-99) mg/dL Calcium 8.0 L (8.4-10.2) mg/dL Urine Appearance (Clear) Urine Protein (Negative) Urine Ketones (Negative) Urine Blood (Negative) Urine Bacteria (None) /hpf Urine Mucus (None) /hpf Crossmatch 11/07/20 11/07/20 11/07/20 Range/Units 08:26 08:45 12:00 RBC (3.80-5.40) m/uL Hgb (11.4-16.0) gm/dL Hct (34.0-46.0) % MCV (80.0-100.0) fL MCHC (31.0-37.0) g/dL Plt Count (150-450) k/uL Lymphocytes # (1.0-4.8) k/uL Sodium (137-145) mmol/L Chloride (98-107) mmol/L Carbon Dioxide (22-30) mmol/L Glucose (74-99) mg/dL POC Glucose (mg/dL) 39 L 270 H 102 H (75-99) mg/dL Calcium (8.4-10.2) mg/dL Urine Appearance (Clear) Urine Protein (Negative) Urine Ketones (Negative) Urine Blood (Negative) Urine Bacteria (None) /hpf Urine Mucus (None) /hpf Crossmatch 11/07/20 11/07/20 Range/Units 14:46 18:23 RBC (3.80-5.40) m/uL Hgb (11.4-16.0) gm/dL Hct (34.0-46.0) % MCV (80.0-100.0) fL MCHC (31.0-37.0) g/dL Plt Count (150-450) k/uL Lymphocytes # (1.0-4.8) k/uL Sodium (137-145) mmol/L Chloride (98-107) mmol/L Carbon Dioxide (22-30) mmol/L Glucose (74-99) mg/dL POC Glucose (mg/dL) 101 H 165 H (75-99) mg/dL Calcium (8.4-10.2) mg/dL Urine Appearance (Clear) Urine Protein (Negative) Urine Ketones (Negative) Urine Blood (Negative) Urine Bacteria (None) /hpf Urine Mucus (None) /hpf Crossmatch Diabetes panel 11/07/20 Range/Units 07:21 Sodium 136 L (137-145) mmol/L Potassium 4.2 (3.5-5.1) mmol/L Chloride 110 H (98-107) mmol/L Carbon Dioxide 21 L (22-30) mmol/L BUN 15 (7-17) mg/dL Creatinine 0.83 (0.52-1.04) mg/dL Glucose 36 L* (74-99) mg/dL Calcium 8.0 L (8.4-10.2) mg/dL Calcium panel 11/07/20 Range/Units 07:21 Calcium 8.0 L (8.4-10.2) mg/dL Pituitary panel 11/07/20 Range/Units 07:21 Sodium 136 L (137-145) mmol/L Potassium 4.2 (3.5-5.1) mmol/L Chloride 110 H (98-107) mmol/L Carbon Dioxide 21 L (22-30) mmol/L BUN 15 (7-17) mg/dL Creatinine 0.83 (0.52-1.04) mg/dL Glucose 36 L* (74-99) mg/dL Calcium 8.0 L (8.4-10.2) mg/dL Adrenal panel 11/07/20 Range/Units 07:21 Sodium 136 L (137-145) mmol/L Potassium 4.2 (3.5-5.1) mmol/L Chloride 110 H (98-107) mmol/L Carbon Dioxide 21 L (22-30) mmol/L BUN 15 (7-17) mg/dL Creatinine 0.83 (0.52-1.04) mg/dL Glucose 36 L* (74-99) mg/dL Calcium 8.0 L (8.4-10.2) mg/dL Assessment and Plan Plan: 50-year-old female with active upper GI bleed. I was present for a significant portion of the upper endoscopy. Source of bleed is unclear between 20 cm to 50 cm fabian. The patient is also noted to have anatomical changes based on previous gastric bypass surgery. It is unclear whether this is a Shilpa-en-Y or Billroth type of procedure based on low visibility during endoscopy. Based on unclear source of bleeding, I would not recommend surgical intervention as it is unclear where surgical intervention would take place anatomically. Based on the current situation, I would recommend transfer to facility that would be able to perform Angioembolization. Currently, her prognosis is quite poor as she does have multiple chronic medical conditions and significant vasculopathy.
--- NOTE | 2020-11-07 20:01 | P.PCN ---
Date of Procedure: 11/07/20 Description of Procedure: BRIEF HISTORY: 50-year-old female with multiple medical comorbidities on antiplatelet and anticoagulation therapy who presented for weakness and altered mental status. She reported episodes of hematemesis and dark stool prior to presentation. Hemoglobin initially remained stable however patient subsequently developed multiple episodes of hematemesis this afternoon and was transferred to the EGD. At this time emergent EGD was scheduled. PROCEDURE PERFORMED: Esophagogastroduodenoscopy. PREOPERATIVE DIAGNOSIS: Anemia acute blood loss, acute upper GI bleed. ESTIMATED BLOOD LOSS: Minimal. IV sedation per anesthesia. PROCEDURE: After informed consent was obtained, the patient was brought into the endoscopy unit. IV sedation was administered by Anesthesia under continuous monitoring with the patient intubated prior to the procedure for protection of her airways. Initially the Olympus GIF-190 video endoscope was inserted into the mouth. Esophagus intubated without any difficulty. The scope was passed to the proximal esophagus where a large amount of fresh blood and old clots were noted. Extensive lavage and suctioning were performed with the scope advanced through the distal esophagus and into the gastric remnant. The patient's anatomy was suggestive of a Billroth I surgery. The scope was then passed into the small bowel. Fresh blood was noted throughout the small bowel however with extensive lavage it did not appear to be the source of bleeding. During the process of lavage and suctioning the endoscope was changed on 2 occasions as large clots blocked the suction channel. In the gastric remnant fresh blood and clots were again noted. Throughout the entire procedure active bleeding continued. It did however seem to slow near the conclusion of the procedure. In total approximately 2 hours were spent in attempts to identify the bleeding lesion however this was unsuccessful. Of note, during the procedure the patient received a total of 5 units of packed red blood cells, 2 units of platelets and 2 units of fresh frozen plasma. During the procedure the surgical service was consult to to come see the patient. With no source of bleeding identified and continued active bleeding decision was made to complete the procedure and pressure the patient for further evaluation at tertiary center once medically stable. The patient did tolerate the procedure well. IMPRESSION: 1. Acute active upper GI bleed, unclear source of bleeding however suspicion is for bleeding that is occurring either in the distal esophagus or gastric remnant. Unfortunately, continued active bleeding and large clots which were un able to be suctioned prohibited identification of the source of bleeding. 2. 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 RECOMMENDATIONS: The findings of this examination were discussed with the surgical service, medical team and at this time we'll continue to stabilize the patient in the intensive care unit. Continue close monitoring of hemoglobin and hematocrit and blood loss, from nasogastric tube. Patient will need transfer to a tertiary center for further evaluation and possible CT angiography with coiling. Continue IV Protonix for now.
[2020-11-07] MEDS: SODIUM CHLORIDE 0.9% 150 ML with VASOPRESSIN 60 UNIT IV SCH ×2 (20:13)
--- NOTE | 2020-11-07 20:15 | XR ---
EXAMINATION TYPE: XR chest 1V portable DATE OF EXAM: 11/07/2020 COMPARISON: Today HISTORY: Check tube placement TECHNIQUE: FINDINGS: Endotracheal tube is 4.5 cm from the noah. There is nasogastric tube in the stomach. Ther e is left-sided central venous catheter with tip in the right atrium. There is some mild interstitial infiltrate in the right lung. Left lung is clear. There is lucency over the lateral right lower lobe that appears to be skinfold. Bony thorax is intact. There is increased intestinal gas that could rel ate to some ileus. IMPRESSION: Tubing in fairly good position. There is some new minimal interstitial infiltrate in the right lung compared to the exam 4 hours ago.
[2020-11-07] MEDS ORDERED: HYDROCORTISONE SUCCINATE 100 MG/2 ML VIAL IV STA (20:33)
[2020-11-07 20:40] LABS: Basophils % (A) 1 %; Eosinophils % (A) 1 %; Hypochromasia Marked; Lymphocytes # (A) 0.9 k/uL (1.0-4.8); Lymphocytes % (A) 37 %; MCH 28.4 pg (25.0-35.0); MCHC 28.6 g/dL (31.0-37.0); MCV 99.2 fL (80.0-100.0); Macrocytosis Slight; Mean Platelet Volume 8.3; Monocytes # (A) 0.1 k/uL (0-1.0); Monocytes % (A) 2 %; Neutrophils # (A) 1.4 k/uL (1.3-7.7); Neutrophils % (A) 59 %; Platelet Count 234 k/uL (150-450); RBC 1.36 m/uL (3.80-5.40); WBC 2.5 k/uL (3.8-10.6)
[2020-11-07 20:54] LABS: ALT 19 U/L (4-34); AST 61 U/L (14-36); African American GFR (CKD) >90 (>60 ml/min/1.73 sqM); Albumin 1.2 g/dL (3.5-5.0); Alkaline Phosphatase 30 U/L (38-126); Blood Urea Nitrogen 9 mg/dL (7-17); Chloride 124 mmol/L (98-107); Glucose 103 mg/dL (74-99); Magnesium 1.8 mg/dL (1.6-2.3); Non-African American GFR(CKD) >90 (>60 ml/min/1.73 sqM); Potassium 4.5 mmol/L (3.5-5.1); Sodium 143 mmol/L (137-145); Total Bilirubin 0.2 mg/dL (0.2-1.3); Total Protein 2.8 g/dL (6.3-8.2)
[2020-11-07 20:55] LABS: HCT 13.5 % (34.0-46.0); HGB 3.8 gm/dL (11.4-16.0)
[2020-11-07 20:59] LABS: Anion Gap 12 mmol/L
[2020-11-07] MEDS ORDERED: CHLORHEXIDINE GLUCONATE 15 ML CUP MUCOUS MEM SCH (21:00)
[2020-11-07 21:20] LABS: Calcium 5.6 mg/dL (8.4-10.2); Carbon Dioxide 7 mmol/L (22-30)
[2020-11-07 21:24] LABS: INR 1.5 (<1.2)
[2020-11-07 21:28] LABS: Partial Thromboplastin Time 110.2 sec (22.0-30.0)
--- NOTE | 2020-11-07 21:57 | CONS ---
CONSULTATION PULMONARY/CRITICAL CARE CONSULTATION: DATE OF SERVICE: 11/07/2020 This is a 50-year-old black female with a history of DVT/pulmonary embolism, sticky platelet syndrome, who presented to the emergency department with altered mental status. She apparently was sent to the hospital for weakness. She apparently was slumped over a bench. When EMS arrived, she became unresponsive. She apparently was vomiting up bright red blood and was admitted to the hospital for an upper GI bleed. The patient is currently on Lovenox for her DVT/PE as well sticky platelet syndrome. Apparently she was admitted to the floor. An A-Team was called on the patient today. She was vomiting up bright red blood. The patient was transferred to the ICU. I was asked to put a central line into the patient. I did. We did a left internal jugular triple-lumen catheter. In addition, I was placed on consultation for ICU management. The patient has a history of a left BKA and a right AKA. In addition, she is on 3 L nasal oxygen. She is getting saline at 200 mL/hour, and she has been given an order for 2 units of PRBCs. HOME MEDICATIONS: Her home medications include Plavix, albuterol inhaler, Lovenox, Lasix, Advair, Pepcid, albuterol/Atrovent updrafts, Fioricet, Bentyl, morphine sulfate, pain pump, Lyrica and Zestril. Other medications include Coreg, Tylenol and sublingual nitroglycerin. ALLERGIES: IBUPROFEN and TRAZODONE. MEDICAL HISTORY: Medical history includes asthma, CVA/TIA, DVT, PE, osteoarthritis, sticky platelet syndrome, bronchitis and previous episodes of infections with extended-spectrum beta lactamase-producing organisms, including Proteus and E coli. The source has been the urine. SURGICAL HISTORY: Surgical history includes back surgery, cholecystectomy, bypass grafting, the left BKA and a right rgpqe-ozi-heep amputation. She has also had an aortic bypass procedure. SOCIAL HISTORY: Positive for previous tobacco use. She denies any alcohol use or illicit drug use. FAMILY HISTORY: Positive for mother who has MS and cataracts and father who was involved in a car accident at a young age and passed. REVIEW OF SYSTEMS: CONSTITUTIONAL: Weakness. NEUROLOGIC: Negative. HEENT: Negative. CARDIOVASCULAR: Negative. PULMONARY: Negative. GI: Bright red hematemesis. : Negative. RHEUMATOLOGIC: Negative. IMMUNOLOGIC: Negative. ENDOCRINOLOGIC: Negative. DERMATOLOGIC: Negative. PHYSICAL EXAMINATION: VITAL SIGNS: Current vital signs are reviewed. Temperature 96.9, heart rate 96, respiratory rate 14, blood pressure 96/38, mean 57, and saturations are 100% on 3 L. GENERAL APPEARANCE: She appears in no acute distress. HEENT: Examination is grossly unremarkable. NECK: Supple. Full range of motion. No adenopathy. Neck veins are flat. CARDIOVASCULAR: Examination reveals regular rhythm and rate. Heart rate 96 beats per minute. S1, S2 normal. Heart sounds are distant. LUNGS: Lungs are clear. Breath sounds equal. ABDOMEN: Soft. EXTREMITIES: Extremities reveal a left BKA and a right oexrn-[id number] amputation. No cyanosis or clubbing. SKIN: Without rash. NEUROLOGIC: Neurologic examination is nonfocal. LABS/IMAGING: Labs are reviewed. White count 5.9, hemoglobin 8.1, down from 10.1, hematocrit 26.4, down from 33.7, platelet count 487,000. PT, INR, PTT normal. Sodium 136, potassium 4.2, chloride 110, CO2 21. Anion gap is 5. BUN and creatinine were 15 and 0.83. Glucose was only 36. Calcium 8. Urine is yellow and cloudy. Specific gravity is 1.022. There is 1+ protein, 1+ ketones, small amount of blood, rare bacteria and rare mucus. Stools for occult blood were positive. Microbiology is currently negative. A chest x-ray was done. The chest x-ray shows no acute pulmonary process. The chest x-ray subsequent to the central line placement shows a well-placed central line. There was no complication. MEDICATIONS: Medications are reviewed. She has orders for albuterol inhaler, Symbicort, Narcan, octreotide, Zofran, pain pump, Protonix, Lyrica and saline at 200 mL/hour. ASSESSMENT: 1. Acute gastrointestinal bleed with bright red hematemesis. 2. Anemia secondary to gastrointestinal bleed. 3. History of sticky platelet syndrome, with left yuokt-ahf-mqza amputation and right cfjzz-mhf-edxt amputation for previous deep venous thrombosis and pulmonary embolism. 4. Previous history of tobacco use. 5. History of cerebrovascular accident/transient ischemic attack. 6. History of deep venous thrombosis. 7. History of pulmonary embolism. 8. Degenerative joint disease. 9. History of bronchitis. 10.Multiple urinary tract infections with extended-spectrum beta lactamase-producing Proteus and Escherichia coli. 11.Status post bypass grafting. 12.Status post insertion of a pain pump. PLAN: A central line was placed. She should be resuscitated. She is receiving 2 units of PRBCs. Hemoglobin should be repeated. No additional recommendations are made. If blood pressure is low, after fluid resuscitation, start norepinephrine. Additional recommendations and suggestions are forthcoming. Prognosis is guarded. MMODL / IJN: [id number] /
--- NOTE | 2020-11-07 22:08 | P.HPIM ---
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 Apparently patient was found to be very weak at home and slumped over a branch. Patient had a syncopal episode and EMS was called. Patient was initially talking to EMS and gradually became unresponsive. Patient required bagging upon arriving to the hospital. According to the family patient has been weak and has been having bloody emesis for the past 2 days. No history of gastric ulcers prior GI bleed. Patient follows with Dr. Dixon's office where he pain pump was filled. Denied any complaints of severe abdominal pain. No chest pain or shortness of breath. No fever no chills. No recent illnesses. Initial hemoglobin was 10.0 on admission and dropped down to 8.1 this morning. While she was on the floor patient was having bloody emesis x2 this morning and transferred to MICU. Patient has become more confused and lethargic. Octreotide was ordered and patient was continued on IV Protonix twice daily. Lovenox is on hold. Gastroenterology and pulmonary was consulted. Patient was fluid resuscitated due to hypotensive shock and was given PRBC transfusion and also platelet, cryoprecipitate and FFP transfusion as well. Patient also required Levophed pressor support. Patient underwent emergent EGD but bleeding source however unable to be identified. Gastroenterology has seen the patient and general surgery was consulted. Patient may require CT angiogram with coiling for which patient is to be transferred to tertiary care facility. I did discuss with [facility] transfer team and process was initiated. Central line was placed and patient is being continued on IV hydration. rrived to room to find patient actively vomiting blood. She had 4-5 episode of bloody emesis. She appeared in distress with BP 78/45. 0.9L NS started at wide open. 1 unit pRBC ordered. Attempt second IV unsucessful. Contacted Dr. Alcantara over the phone and informed of the case and situation. Patient transferred to the ICU. Second unit of blood ordered as she continue to have bloody emesis. Anesthesia and nursing unable to obtain IV. Admitting physician contacted and made aware of the situation he did come to bedside to see the patient. NGT placed with return of azucena red blood. Dr. Singleton at bedside and placed a central line. Patient was having intermittent difficulty with mentation. Octreotide was ordered, she had already received protonix. Patient greater than 8 hours from last lovenox dose, however due to severity of bleed protamine was ordered. Will follow blood with platelet as likely high grade of platelet dysfunction due to plavix use. Patient with continued bleeding. 1 additional unit of pRBC ordered for a total of 3 units. A total of 65 minutes of critical care time was spent with this patient including coordination of care and speciality care. DX: Acute blood loss anemia, hypovolemic shock, Upper GI bleed. At bedside for EGD patient developed hypotension, levophed started and managed with [employer]. She has received 5 units of blood 2 of platelets, and 1 FFP,1 of cryo. She continues to have bleeding unable to localize on EGD. Dr. Alcantara has been at bedside for 2 hours with EGD. Contact Dr. Snider who came urgently to bedside. Dr. Singleton updated over the phone. Sister updated over the phone and made aware of poor prognosis. Dr. Nicole Updated over the phone he will attempt to start transfer to [facility]. A total of an additional 45 minutes of critical care time was spent managing massive transfusion protocol. DX: Systolic CHF, Acute blood loss anemia, hypovolemic shock, Upper GI bleed, Sticky platelet syndrome Review of Systems Constitutional: Patient denies any fever or chills . generalized weakness and tired.. Abdomen: Patient Does have bloody emesis. no diarrhea and abdominal pain. Cardiovascular: Patient denies any chest pain or short of breath no pal pitations. Respiratory: patient denied any cough or sputum production. No shortness of breath Neurologic: Patient denied any numbness or tingling headache. Musculoskeletal: Patient denies any complaints of joint swelling or deformity. Skin: Negative Psychiatric: Negative Endocrine: No heat or cold intolerance. No recent weight gain. Genitourinary: No dysuria or hematuria. All other 14 point ROS negative except the above Past Medical History Past Medical History: Asthma, CVA/TIA, Deep Vein Thrombosis (DVT), Osteoarthritis (OA), Pulmonary Embolus (PE) Additional Past Medical History / Comment(s): sticky platelet syndrome, bron chitis, History of Any Multi-Drug Resistant Organisms: ESBL Date of last positivie culture/infection: 10/15/18 ESBL-Proteus; 09/07/18 ESBL E.coli MDRO Source:: Urine ESBL Past Surgical History: Back Surgery, Cholecystectomy, Coronary Bypass/CABG Additional Past Surgical History / Comment(s): BKA, left lower leg, aortic bypass right leg, right leg fasciotomy. Past Anesthesia/Blood Transfusion Reactions: No Reported Reaction Additional Past Anesthesia/Blood Transfusion Reaction / Comment(s): pt stated has had a blood transfusion in past-no reaction. Past Psychological History: Anxiety, Depression Smoking Status: Former smoker Past Alcohol Use History: None Reported Past Drug Use History: None Reported - Past Family History Mother History Unknown: Yes Additional Family Medical History / Comment(s): MS, legally blind, cataracts Father Family Medical History: No Reported History Additional Family Medical History / Comment(s): Was younger when he , car accident Medications and Allergies Home Medications Medication Instructions Recorded Confirmed Type Clopidogrel Bisulfate [Plavix] 75 mg PO DAILY 12/06/18 11/06/20 History Nitroglycerin Sl Tabs [Nitrostat] 0.4 mg SUBLINGUAL Q5M PRN tab 12/28/18 11/06/20 Rx Albuterol Sulfate [Proair Hfa] 1 puff INHALATION RT-Q4H PRN 04/09/19 11/06/20 History carvediloL [Coreg] 6.25 mg PO BID-W/MEALS #60 tab 04/12/19 11/06/20 Rx Enoxaparin [Lovenox] 40 mg SQ DAILY 05/01/19 11/06/20 History Furosemide [Lasix] 40 mg PO DAILY PRN 05/11/19 11/06/20 History Acetaminophen Tab [Tylenol] 500 mg PO Q6HR PRN tab 05/14/19 11/06/20 Rx Fluticasone/Salmeterol [Advair 1 puff INHALATION RT-BID 05/17/19 11/06/20 History 250-50 Diskus] Famotidine [Pepcid] 20 mg PO DAILY PRN 06/03/19 11/06/20 History Ipratropium-Albuterol Nebulize 3 ml INHALATION RT-Q6H PRN 07/11/19 11/06/20 History [Duoneb 0.5 mg-3 mg/3 ml Soln] Butalb/Acetaminophen/Caffeine 1 tab PO Q8H PRN 06/18/20 11/06/20 History [Fioricet 50-325-40] Dicyclomine HCl 20 mg PO BID PRN 06/18/20 11/06/20 History Morphine Sulfate Ir [MSIR] 15 mg PO DAILY PRN 11/06/20 11/06/20 History Pain Pump W/Morphine 1 dose INTRATHECA DIRECTED 11/06/20 11/06/20 History Pregabalin [Lyrica] 75 mg PO TID 11/06/20 11/06/20 History lisinopriL [Zestril] 2.5 mg PO DAILY 11/06/20 11/06/20 History Allergies Allergy/AdvReac Type Severity Reaction Status Date / Time ibuprofen Allergy Unknown Verified 11/06/20 17:33 trazodone Allergy Chest Pain Verified 11/06/20 17:33 Physical Exam Vitals: Vital Signs Temp Pulse Pulse Resp BP BP Pulse Ox 11/07/20 11:09 87 16 122/68 100 11/07/20 10:31 106 H 106/69 100 11/07/20 10:30 122 H 18 92/60 100 11/07/20 10:25 88 18 120/87 100 11/07/20 10:20 65 18 128/84 100 11/07/20 10:15 82 16 140/86 100 11/07/20 08:30 86 16 11/07/20 04:00 84 16 102/59 100 11/07/20 00:00 71 16 98/60 100 11/06/20 20:00 97.5 F L 70 16 106/65 100 11/06/20 18:30 85 16 113/89 100 11/06/20 18:15 77 15 116/79 99 11/06/20 18:00 70 11 L 115/78 99 11/06/20 17:45 77 18 119/76 97 11/06/20 17:00 71 18 115/79 99 11/06/20 16:45 85 15 98/68 99 11/06/20 16:30 97.5 F L 85 12 11/06/20 16:16 18 76/63 94 L Intake and Output 11/06/20 11/07/20 11/07/20 22:59 06:59 14:59 Intake Total 0 0 Balance 0 0 Intake: Oral 0 0 Other: Voiding Method Bedpan # Voids 1 Weight 43.091 kg 36 kg 36 kg PHYSICAL EXAMINATION: Patient is Lethargic and feels very weak. On and off confusion and ill- appearing. Patient is cachectic... HEENT: Normocephalic. Neck is supple. Pupils reactive. Nostrils clear. Oral cavity is moist. Ears reveal no drainage. Neck reveals no JVD, carotid bruits, or thyromegaly. CHEST EXAMINATION: Trachea is central. Symmetrical expansion. Lung duncan clear to auscultation and percussion. CARDIAC: Normal S1, S2 with no gallops. No murmurs ABDOMEN: Soft.Mild diffuse tenderness. Bowel sounds normal. No organomegaly. No abdominal bruits. Extremities: Right AKA and left BKA. No clubbing or cyanosis Neurologically awake, alert, oriented x 2-3. No gross focal deficits noted Skin: No rash or skin lesions. Psychiatric: Coperative. Could not be assessed completely. Musculoskeletal: No joint swelling or deformity. Normal range of motion. Results CBC & Chem 7: 11/07/20 20:29 11/07/20 20:29 Labs: Abnormal Lab Results - Last 24 Hours (Table) 11/06/20 11/06/20 11/06/20 Range/Units 16:27 16:27 16:43 RBC 3.29 L (3.80-5.40) m/uL Hgb 10.1 L (11.4-16.0) gm/dL Hct 33.7 L (34.0-46.0) % MCV 102.5 H (80.0-100.0) fL MCHC 29.9 L (31.0-37.0) g/dL Plt Count 603 H (150-450) k/uL Lymphocytes # (1.0-4.8) k/uL Sodium (137-145) mmol/L Chloride (98-107) mmol/L Carbon Dioxide (22-30) mmol/L Glucose (74-99) mg/dL POC Glucose (mg/dL) (75-99) mg/dL Plasma Lactic Acid Faisal 2.6 H* (0.7-2.0) mmol/L Calcium (8.4-10.2) mg/dL Albumin (3.5-5.0) g/dL Urine Appearance (Clear) Urine Protein (Negative) Urine Ketones (Negative) Urine Blood (Negative) Urine Bacteria (None) /hpf Urine Mucus (None) /hpf Stool Occult Blood (Negative) Crossmatch See Detail 11/06/20 11/06/20 11/07/20 Range/Units 16:43 16:43 00:46 RBC 2.52 L (3.80-5.40) m/uL Hgb 8.0 L D (11.4-16.0) gm/dL Hct 25.7 L (34.0-46.0) % MCV 101.8 H (80.0-100.0) fL MCHC (31.0-37.0) g/dL Plt Count 462 H (150-450) k/uL Lymphocytes # (1.0-4.8) k/uL Sodium 134 L (137-145) mmol/L Chloride (98-107) mmol/L Carbon Dioxide 19 L (22-30) mmol/L Glucose (74-99) mg/dL POC Glucose (mg/dL) (75-99) mg/dL Plasma Lactic Acid Faisal (0.7-2.0) mmol/L Calcium (8.4-10.2) mg/dL Albumin 2.6 L (3.5-5.0) g/dL Urine Appearance (Clear) Urine Protein (Negative) Urine Ketones (Negative) Urine Blood (Negative) Urine Bacteria (None) /hpf Urine Mucus (None) /hpf Stool Occult Blood Positive H (Negative) Crossmatch 11/07/20 11/07/20 11/07/20 Range/Units 07:18 07:21 07:21 RBC 2.58 L (3.80-5.40) m/uL Hgb 8.1 L (11.4-16.0) gm/dL Hct 26.4 L (34.0-46.0) % MCV 102.4 H (80.0-100.0) fL MCHC 30.5 L (31.0-37.0) g/dL Plt Count 487 H (150-450) k/uL Lymphocytes # 0.8 L (1.0-4.8) k/uL Sodium 136 L (137-145) mmol/L Chloride 110 H (98-107) mmol/L Carbon Dioxide 21 L (22-30) mmol/L Glucose 36 L* (74-99) mg/dL POC Glucose (mg/dL) (75-99) mg/dL Plasma Lactic Acid Faisal (0.7-2.0) mmol/L Calcium 8.0 L (8.4-10.2) mg/dL Albumin (3.5-5.0) g/dL Urine Appearance Cloudy H (Clear) Urine Protein 1+ H (Negative) Urine Ketones 1+ H (Negative) Urine Blood Small H (Negative) Urine Bacteria Rare H (None) /hpf Urine Mucus Rare H (None) /hpf Stool Occult Blood (Negative) Crossmatch 11/07/20 11/07/20 11/07/20 Range/Units 08:10 08:26 08:45 RBC (3.80-5.40) m/uL Hgb (11.4-16.0) gm/dL Hct (34.0-46.0) % MCV (80.0-100.0) fL MCHC (31.0-37.0) g/dL Plt Count (150-450) k/uL Lymphocytes # (1.0-4.8) k/uL Sodium (137-145) mmol/L Chloride (98-107) mmol/L Carbon Dioxide (22-30) mmol/L Glucose (74-99) mg/dL POC Glucose (mg/dL) 45 L 39 L 270 H (75-99) mg/dL Plasma Lactic Acid Faisal (0.7-2.0) mmol/L Calcium (8.4-10.2) mg/dL Albumin (3.5-5.0) g/dL Urine Appearance (Clear) Urine Protein (Negative) Urine Ketones (Negative) Urine Blood (Negative) Urine Bacteria (None) /hpf Urine Mucus (None) /hpf Stool Occult Blood (Negative) Crossmatch 11/07/20 Range/Units 12:00 RBC (3.80-5.40) m/uL Hgb (11.4-16.0) gm/dL Hct (34.0-46.0) % MCV (80.0-100.0) fL MCHC (31.0-37.0) g/dL Plt Count (150-450) k/uL Lymphocytes # (1.0-4.8) k/uL Sodium (137-145) mmol/L Chloride (98-107) mmol/L Carbon Dioxide (22-30) mmol/L Glucose (74-99) mg/dL POC Glucose (mg/dL) 102 H (75-99) mg/dL Plasma Lactic Acid Faisal (0.7-2.0) mmol/L Calcium (8.4-10.2) mg/dL Albumin (3.5-5.0) g/dL Urine Appearance (Clear) Urine Protein (Negative) Urine Ketones (Negative) Urine Blood (Negative) Urine Bacteria (None) /hpf Urine Mucus (None) /hpf Stool Occult Blood (Negative) Crossmatch Thrombosis Risk Factor Assmnt - Choose All That Apply Any of the Below Risk Factors Present?: Yes Each Factor Represents 1 point: Age 41-60 years Other Risk Factors: No Other congenital or acquired thrombophilia - If yes, enter type in comment: No Thrombosis Risk Factor Assessment Total Risk Factor Score: 1 Thrombosis Risk Factor Assessment Level: Low Risk Assessment and Plan Assessment: Acute hypovolemic shock secondary GI bleed Acute GI bleed likely upper GI bleed status post EGD bleeding source could not be identified. Altered mental status likely due to hypovolemic shock Acute syncopal episode likely to GI bleed. 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 Central line was placed. Patient will be continued on aggressive fluid resuscitation and PRBC transfusion to maintain blood pressure and hemoglobin greater than 7. Status post EGD and bleeding source could not be identified. Continue with octreotide and PPI. Patient was seen by rapid response team. [facility] and patient is awaiting be transferred for further management attention capacity. Prognosis poor at this time. Sister was updated with current plan. Time with Patient: Greater than 30
[2020-11-07 23:39] LABS: Basophils % (A) 1 %; Eosinophils % (A) 1 %; HCT 33.5 % (34.0-46.0); Hypochromasia Marked; Lymphocytes # (A) 0.8 k/uL (1.0-4.8); Lymphocytes % (A) 23 %; MCHC 29.3 g/dL (31.0-37.0); MCV 106.1 fL (80.0-100.0); Macrocytosis Moderate; Mean Platelet Volume 11.2; Monocytes # (A) 0.2 k/uL (0-1.0); Monocytes % (A) 7 %; Neutrophils # (A) 2.4 k/uL (1.3-7.7); Neutrophils % (A) 67 %; RBC 3.16 m/uL (3.80-5.40); RDW 14.2 % (11.5-15.5); WBC 3.6 k/uL (3.8-10.6)
[2020-11-08] MEDS: PREGABALIN 75 MG CAP PO SCH (00:27)
--- NOTE | 2020-11-08 00:51 | PCN ---
PROCEDURE NOTE PROCEDURE PERFORMED: Left internal jugular triple-lumen catheter. PREOP DIAGNOSIS: Administration of fluids and pressors. POSTOP DIAGNOSIS: Administration of fluids and pressors. TRIPLE LUMEN CATHETER PLACEMENT: INDICATION: Hemodynamic monitoring/Intravenous access. A time-out was completed verifying correct patient, procedure, site, positioning, and implant(s) or special equipment if applicable. The patient was placed in a dependent position appropriate for triple lumen catheter placement based on the vein to be cannulated. The patient's left neck was prepped and draped in sterile fashion. 1% Lidocaine was used to anesthetize the surrounding skin area. A triple lumen 9F Cordis catheter was introduced into the internal jugular vein using Seldinger technique. The catheter was threaded smoothly over the guide wire and appropriate blood return was obtained. Each lumen of the catheter was evacuated of air and flushed with sterile saline. The catheter was then sutured in place to the skin and a sterile dressing applied. Perfusion to the extremity distal to the point of catheter insertion was checked and found to be adequate. There was no immediate complication. Patient tolerated the procedure well. We used the left internal jugular vein posterior approach. The operators were Dr. Singleton and Dr. Sebastian. A chest x-ray was ordered. The tip of the catheter was seen in the right atrium. The catheter was sutured in place and a sterile dressing was applied by the nurse. There was good blood return from all 3 ports. There was informed consent and universal timeout. MMODL / GUERON: [id number] /
[2020-11-08] MEDS: NOREPINEPHRINE 8 MG in SODIUM CHLORIDE 0.9% 250 ML IV SCH (01:15)
[2020-11-08] MEDS: SODIUM CHLORIDE 0.9% 150 ML with VASOPRESSIN 60 UNIT IV SCH ×2 (01:16)
[2020-11-08] MEDS: OCTREOTIDE 500 MCG in SODIUM CHLORIDE 0.9% 250 ML IV SCH (01:41)
[2020-11-08 02:14] LABS: Hypochromasia Marked; MCH 30.9 pg (25.0-35.0); MCHC 29.3 g/dL (31.0-37.0); MCV 105.2 fL (80.0-100.0); Macrocytosis Moderate; Mean Platelet Volume 8.2; Poikilocytosis Slight; RDW 14.8 % (11.5-15.5)
[2020-11-08 02:16] LABS: HGB 2.2 gm/dL (11.4-16.0); WBC 1.3 k/uL (3.8-10.6)
[2020-11-08 02:17] LABS: HCT 7.3 % (34.0-46.0); Platelet Count 16 k/uL (150-450)
[2020-11-08 02:33] VITALS: BP 80/39; RESP 0
[2020-11-08 03:08] LABS: Platelet Count 56 k/uL (150-450)
[2020-11-08 03:35] VITALS: PULSE 87
[2020-11-08 07:31] LABS: HGB 9.8 gm/dL (11.4-16.0)
--- NOTE | 2020-11-19 15:40 | CDI ---
Documentation Clarification Form Mortality review Date: 11/19/2020 03:37:06 PM From: Angela Proctor Admit Date: 11/07/2020 02:38:00 PM Patient Name: Nel Linares Visit Number: [id number] Discharge Date: 11/08/2020 04:50:00 AM ATTENTION: The Clinical Documentation Specialists (CDI) and [facility] Coding Staff appreciate your assistance in clarifying documentation. Please respond to the clarification below the line at the bottom and electronically sign. The CDI & [facility] Coding staff will review the response and follow-up if needed. Please note: Queries are made part of the Legal Health Record. If you have any questions, please contact the author of this message via ITS. Dr. Prater Cachexia and gross muscle atrophy have been documented on a patient with a BMI of 13.2. Please provide further specificity to accurately reflect SOI/ROM. History/Risk Factors: S/P bariatric surgery, bilateral AKA, sticky platelet syndrome, CHF, CABG, Depression, PE/DVT Clinical Indicators: 11/07 H&P: "Patient is cachectic" 11/07 A-team call Note: "General: ill appearing, moderate distress, appears at stated age, cachexia. Ext: + gross muscle atrophy, cachexia, Right AKA, Left BKA." 11/06-11/07 Labs: Total Protein 6.3/2.8 Albumin 2.3/1.2 Current BMI: 13.2 Insufficient energy intake: Patient vomiting blood upon admission Weight Loss: s/p bariatric surgery hx, per Dietary Consult: weight loss 22% of UBW in 4 months Loss of muscle mass: generalized weakness Treatment: Dietary Consult: Completed 11/07 Supplements: suggested upon advancement of diet Lab monitoring: q 6 hrs. In your professional opinion, can you please clarify if these findings signify one of the following conditions? Mild Protein-Calorie Malnutrition Moderate Protein-Calorie Malnutrition Severe Protein-Calorie Malnutrition Other condition, please specify Unable to determine (Last Revision: May 2019) Severe Protein-Calorie Malnutrition MTDD
--- NOTE | 2020-11-19 16:03 | CDI ---
Documentation Clarification Form Date: 11/19/2020 03:41:33 PM From: Angela Proctor RN, CCDS Admit Date: 11/07/2020 02:38:00 PM Patient Name: Nel Linares Visit Number: [id number] Discharge Date: 11/08/2020 04:50:00 AM ATTENTION: The Clinical Documentation Specialists (CDI) and [facility] Coding Staff appreciate your assistance in clarifying documentation. Please respond to the clarification below the line at the bottom and electronically sign. The CDI & [facility] Coding staff will review the response and follow-up if needed. Please note: Queries are made part of the Legal Health Record. If you have any questions, please contact the author of this message via ITS. Dr. Ronni Govea The patient presented with hematemesis, chronically on SQ Lovenox, PO Plavix, and aspirin. Please indicate is upper GI bleeding and hematemesis are a result of use of anticoagulants. History/Risk Factors: Sticky platelet syndrome, Dvt/PE, bilateral AKA, s/p bariatric surgery, hypovolemic shock Clinical Indicators: 11/07 GI Consult: "This is a 50-year-old -[place] female patient with extensive medical history consistent off history of sticky platelet syndrome the patient is on chronic anticoagulation using Lovenox and also she was on Plavix, multiple histories of DVT/PE, bilateral lower extremities amputation, and history of cardiomyopathy." 11/07 Surgical Consult: "She is chronically on a significant amount of anticoagulation with Plavix, aspirin and Lovenox." 11/07 A-team note: "Patient greater than 8 hours from last Lovenox dose, however due to severity of bleed protamine was ordered. Will follow blood with platelet as likely high grade of platelet dysfunction due to Plavix use. Patient with continued bleeding. 1 additional unit of pRBC ordered for a total of 3 units." 11/06-11/08 Lab findings: Hgb 10.1/8.0/8.1/3.8/9.8/2.2 Platelets 603/462/487/234/56/16 Ptt 23.4/110.2 EGD findings: "Acute active upper GI bleed, unclear source of bleeding however suspicion is for bleeding that is occurring either in the distal esophagus or gastric remnant. Unfortunately, continued active bleeding and large clots which were unable to be suctioned prohibited identification of the source of bleeding." Treatment: Consults: Gi, Surgery, [facility] 09/07 10 units PRBC's transfused, 1 unit cryoprecipitate. 2 units platelets, 1 unit FFP 11/07 Sandostatin Gtt @ 50 mcg/hr. 11/07 Protamine 40 mg IVP x 1 dose In your professional opinion, can you please clarify the cause of the bleeding? GIB bleeding d/t usp use of Lovenox GIB d/t terminal carman use of Plavix GIB d/t specified cause (please specify) Underlying cause of GIB unable to be determined Other, please specify Unable to determine (Last Revision: February 2018) Underlying cause of GIB unable to be determined MTDD
--- NOTE | 2020-11-26 00:56 | P.DS ---
Providers Date of admission: 11/07/20 14:38 Expected date of discharge: 11/08/20 Attending physician: Misty Flannery Consults: 11/06/20 18:11 Consult Physician Urgent Consulting Provider: Cristobal Alcantara Consult Reason/Comments: suspected upper gi bleed Do you want consulting provider notified?: Yes 11/07/20 11:02 Consult Physician Urgent Consulting Provider: Jalen Gary Consult Reason/Comments: CP/anticoagulation guidelines Do you want consulting provider notified?: Yes 11/07/20 15:37 Consult Physician Routine Consulting Provider: Mark Anthony Singleton Consult Reason/Comments: ICU management Do you want consulting provider notified?: Yes 11/07/20 18:27 Consult Physician Routine Consulting Provider: Stefan Snider Consult Reason/Comments: GI bleed Do you want consulting provider notified?: Yes Primary care physician: [facility] Hospital Course: diagnosis Acute hypovolemic shock secondary GI bleed Acute GI bleed likely upper GI bleed status post EGD bleeding source could not be identified. Altered mental status likely due to hypovolemic shock Acute syncopal episode likely to GI bleed. 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 Apparently patient was found to be very weak at home and slumped over a branch. Patient had a syncopal episode and EMS was called. Patient was initially talking to EMS and gradually became unresponsive. Patient required bagging upon arriving to the hospital. According to the family patient has been weak and has been having bloody emesis for the past 2 days. No history of gastric ulcers prior GI bleed. Patient follows with Dr. Dixon's office where he pain pump was filled. Denied any complaints of severe abdominal pain. No chest pain or shortness of breath. No fever no chills. No recent illnesses. Initial hemoglobin was 10.0 on admission and dropped down to 8.1 this morning. While she was on the floor patient was having bloody emesis x2 this morning and transferred to MICU. Patient has become more confused and lethargic. Octreotide was ordered and patient was continued on IV Protonix twice daily. Lovenox is on hold. Gastroenterology and pulmonary was consulted. Patient was fluid resuscitated due to hypotensive shock and was given PRBC transfusion and also platelet, cryoprecipitate and FFP transfusion as well. Patient also required Levophed pressor support. Patient underwent emergent EGD but bleeding source however unable to be identified. Gastroenterology has seen the patient and general surgery was consulted. Patient may require CT angiogram with coiling for which patient is to be transferred to tertiary care facility. I did discuss with [facility] transfer team and process was initiated. Central line was placed and patient is being continued on IV hydration. Patient was continued on aggressive fluid resuscitation and PRBC transfusion to maintain blood pressure and hemoglobin greater than 7. Patient underwent EGD showed acute active upper GI bleed, unclear source of bleeding however suspicious for bleeding that remnant. Unfortunately continued active bleeding and large clots which were unable to be suctioned prohibited identification of the source of bleeding. Postsurgical anatomy likely Billroth I gastric bypass.. Continue with octreotide and PPI. Patient was seen by rapid response team. Discussed with [facility] transfer team and patient is awaiting be transferred for further management attention capacity. Prognosis poor at this time. Sister was updated with current plan. Patient was accepted to be transferred to [facility] but due to worsening clinical status and hemodynamic instability patient was unable to be transferred. Patient's clinical status declined and family has been notified. Family is agreeable for comfort measures. Patient at 2:20 AM.. Patient Condition at Discharge: Undetermined Plan - Discharge Summary Discharge Rx Participant: No New Discharge Prescriptions: No Action Clopidogrel Bisulfate [Plavix] 75 mg PO DAILY Nitroglycerin Sl Tabs [Nitrostat] 0.4 mg SUBLINGUAL Q5M PRN tab PRN Reason: Chest Pain Albuterol Sulfate [Proair Hfa] 1 puff INHALATION RT-Q4H PRN PRN Reason: Shortness Of Breath carvediloL [Coreg] 6.25 mg PO BID-W/MEALS #60 tab Enoxaparin [Lovenox] 40 mg SQ DAILY Furosemide [Lasix] 40 mg PO DAILY PRN PRN Reason: SWELLING Acetaminophen Tab [Tylenol] 500 mg PO Q6HR PRN tab PRN Reason: Fever and/ or Mild Pain Fluticasone/Salmeterol [Advair 250-50 Diskus] 1 puff INHALATION RT-BID Famotidine [Pepcid] 20 mg PO DAILY PRN PRN Reason: Heartburn Ipratropium-Albuterol Nebulize [Duoneb 0.5 mg-3 mg/3 ml Soln] 3 ml INHALATION RT-Q6H PRN PRN Reason: Shortness Of Breath Butalb/Acetaminophen/Caffeine [Fioricet 50-325-40] 1 tab PO Q8H PRN PRN Reason: Migraine Headache Dicyclomine HCl 20 mg PO BID PRN PRN Reason: GERDS Morphine Sulfate Ir [MSIR] 15 mg PO DAILY PRN PRN Reason: Pain Pregabalin [Lyrica] 75 mg PO TID Pain Pump W/Morphine 1 dose INTRATHECA DIRECTED lisinopriL [Zestril] 2.5 mg PO DAILY Discharge Medication List Clopidogrel Bisulfate [Plavix] 75 mg PO DAILY 12/06/18 [History] Nitroglycerin Sl Tabs [Nitrostat] 0.4 mg SUBLINGUAL Q5M PRN tab 12/28/18 [Rx] Albuterol Sulfate [Proair Hfa] 1 puff INHALATION RT-Q4H PRN 04/09/19 [History] carvediloL [Coreg] 6.25 mg PO BID-W/MEALS #60 tab 04/12/19 [Rx] Enoxaparin [Lovenox] 40 mg SQ DAILY 05/01/19 [History] Furosemide [Lasix] 40 mg PO DAILY PRN 05/11/19 [History] Acetaminophen Tab [Tylenol] 500 mg PO Q6HR PRN tab 05/14/19 [Rx] Fluticasone/Salmeterol [Advair 250-50 Diskus] 1 puff INHALATION RT-BID 05/17/19 [History] Famotidine [Pepcid] 20 mg PO DAILY PRN 06/03/19 [History] Ipratropium-Albuterol Nebulize [Duoneb 0.5 mg-3 mg/3 ml Soln] 3 ml INHALATION RT-Q6H PRN 07/11/19 [History] Butalb/Acetaminophen/Caffeine [Fioricet 50-325-40] 1 tab PO Q8H PRN 06/18/20 [History] Dicyclomine HCl 20 mg PO BID PRN 06/18/20 [History] Morphine Sulfate Ir [MSIR] 15 mg PO DAILY PRN 11/06/20 [History] Pain Pump W/Morphine 1 dose INTRATHECA DIRECTED 11/06/20 [History] Pregabalin [Lyrica] 75 mg PO TID 11/06/20 [History] lisinopriL [Zestril] 2.5 mg PO DAILY 11/06/20 [History] Follow up Appointment(s)/Referral(s): Carissa Castro MD [Primary Care Provider] - 1-2 days Discharge Disposition: - Preliminary Cause of Preliminary Cause of : Acute hypovolemic shock secondary GI bleed
== END 2020-11-08 04:50 | disposition expired | DRG 377 ==
LOC: EC 16:14 → 3SCARD 18:13 → OBSVTOIN 11-07 14:38 → 2SICU 11-07 15:40
PROVIDERS: ADMIT Hospitalist; ATTEND Hospitalist
PROC: 02H633Z Insertion of Infusion Device into Right Atrium, Percutaneous Approach (ICD-10-PCS; 2020-11-07)
PROC: 0D9670Z Drainage of Stomach with Drainage Device, Via Natural or Artificial Opening (ICD-10-PCS; 2020-11-07)
PROC: 3E043XZ Introduction of Vasopressor into Central Vein, Percutaneous Approach (ICD-10-PCS; 2020-11-07)
PROC: 30233K1 Transfusion of Nonautologous Frozen Plasma into Peripheral Vein, Percutaneous Approach (ICD-10-PCS; 2020-11-07)
PROC: 30233R1 Transfusion of Nonautologous Platelets into Peripheral Vein, Percutaneous Approach (ICD-10-PCS; 2020-11-07)
PROC: 30233M1 Transfusion of Nonautologous Plasma Cryoprecipitate into Peripheral Vein, Percutaneous Approach (ICD-10-PCS; 2020-11-07)
PROC: 30233N1 Transfusion of Nonautologous Red Blood Cells into Peripheral Vein, Percutaneous Approach (ICD-10-PCS; 2020-11-07)
PROC: 3E1G88Z Irrigation of Upper GI using Irrigating Substance, Via Natural or Artificial Opening Endoscopic (ICD-10-PCS; principal; 2020-11-07 08:20)
PROC: 0DJ08ZZ Inspection of Upper Intestinal Tract, Via Natural or Artificial Opening Endoscopic (ICD-10-PCS; principal; 2020-11-07 08:20)
DX: K92.0 Hematemesis (principal); E43 Unspecified severe protein-calorie malnutrition; D62 Acute posthemorrhagic anemia; R64 Cachexia; I50.22 Chronic systolic (congestive) heart failure; I42.8 Other cardiomyopathies; Z68.1 Body mass index [BMI] 19.9 or less, adult; R57.1 Hypovolemic shock; D69.1 Qualitative platelet defects; Z89.611 Acquired absence of right leg above knee; Z89.512 Acquired absence of left leg below knee; K31.89 Other diseases of stomach and duodenum; K22.8 Other specified diseases of esophagus; M62.50 Muscle wasting and atrophy, not elsewhere classified, unspecified site; I25.10 Atherosclerotic heart disease of native coronary artery without angina pectoris; E16.2 Hypoglycemia, unspecified; J45.909 Unspecified asthma, uncomplicated; M19.90 Unspecified osteoarthritis, unspecified site; Z79.01 Long term (current) use of anticoagulants; Z79.02 Long term (current) use of antithrombotics/antiplatelets; Z79.891 Long term (current) use of opiate analgesic; Z79.899 Other long term (current) drug therapy; Z97.8 Presence of other specified devices; Z87.891 Personal history of nicotine dependence; Z71.3 Dietary counseling and surveillance; Z86.19 Personal history of other infectious and parasitic diseases; Z90.49 Acquired absence of other specified parts of digestive tract; Z95.1 Presence of aortocoronary bypass graft; Z87.19 Personal history of other diseases of the digestive system; Z86.711 Personal history of pulmonary embolism; Z86.718 Personal history of other venous thrombosis and embolism; Z95.828 Presence of other vascular implants and grafts; Z86.59 Personal history of other mental and behavioral disorders; Z86.73 Personal history of transient ischemic attack (TIA), and cerebral infarction without residual deficits; Z87.440 Personal history of urinary (tract) infections; Z98.890 Other specified postprocedural states; Z88.6 Allergy status to analgesic agent; Z88.8 Allergy status to other drugs, medicaments and biological substances; Z83.518 Family history of other specified eye disorder; Z82.1 Family history of blindness and visual loss; Z82.0 Family history of epilepsy and other diseases of the nervous system
CPT/HCPCS: 36415; 43243; 71045; 71046; 80048; 80053; 81001; 82272; 83605; 83735; 84484; 85025; 85027; 85384; 85610; 85730; 86850; 86900; 86901; 86920; 93005; 94002; 94003; 96361; 96374; 99285